=== PATIENT | female | born 2005 | race Caucasian/White ===

== ENCOUNTER → 2024-11-19 | Outpatient (CLI) | payer MEDICAID, SELFPAY | END | disposition home or self-care (01) | LOC: LABSPEC 13:14 | PROVIDERS: Referring Provider Obstetrics & Gynecology; Visit Provider Obstetrics & Gynecology | DX: O09.90 Supervision of high risk pregnancy, unspecified, unspecified trimester (principal); Z3A.00 Weeks of gestation of pregnancy not specified | CPT/HCPCS: 87077; 87086; 87088; 87186 ==

== ENCOUNTER → 2024-12-07 | Outpatient (CLI) | payer MEDICAID, SELFPAY ==
[2024-12-07 12:29] LABS: Hematocrit 30.5 % (37-47); Hemoglobin 10.3 g/dL (12.0-15.0); Immature Granulocytes Count 0.060 X10^3/uL (0.0-0.0); Mean Corp Hgb Conc 33.8 g/dL (32-36); Mean Corpuscular Volume 90.2 fL (81-99); Mean Platelet Vol. 10.4 fl (6.2-12.0); NRBC Flagged by Analyzer 0 % (0-5); Platelet Count 261 K/mm3 (150-450); RBC Distribution Width CV 12.7 % (11.6-14.6); RBC Distribution Width SD 41.1 fl (35.1-43.9); Red Blood Count 3.38 M/mm3 (4.2-5.4); White Blood Count 8.9 K/mm3 (4.4-11.0)
[2024-12-07 12:42] LABS: Creatinine, Urine (random) 85.20 mg/dL (28.00-217.00); Protein, Urine (Random) 14.4 mg/dL (0.0-12.0); Protein:Creat Ratio 169 mg/g CRE (0-200)
[2024-12-07 13:42] LABS: AST(SGOT) 17 U/L (<=31); Alanine Aminotransfer ALT/SGPT 10 U/L (<=34); Albumin, Serum 3.3 g/dL (3.5-5.0); Alkaline Phosphatase 200 U/L (35-104); Anion Gap 12 (5-15); BUN 9 mg/dL (4-19); BUN/Creat Ratio 15.3 RATIO (10-20); Calcium,Total 9.1 mg/dL (7.6-11.0); Carbon Dioxide 19.7 mmol/L (21.0-32.0); Chloride 106 mmol/L (98-108); Globulin 2.7 g/dL (2.2-4.2); Glucose 68 mg/dL (70-99); Potassium 4.1 mmol/L (3.3-5.1)
== END | disposition home or self-care (01) ==
PROVIDERS: Visit Provider Nurse Practitioner Women's Health
DX: O26.899 Other specified pregnancy related conditions, unspecified trimester (principal); R51.9 Headache, unspecified; Z3A.00 Weeks of gestation of pregnancy not specified
CPT/HCPCS: 36415; 80053; 82570; 84156; 85025

== ENCOUNTER 2024-12-16 20:00 | Inpatient (IN) | payer MEDICAID, SELFPAY ==
[2024-12-16] VITALS (38 sets, daily range): BP systolic 130–165; BP diastolic 73–97; PULSE 64–93; RESP 12–16; TEMP 35.8–37.6; O2SAT 97–99; BMI 27.9
[2024-12-16 17:24] LABS: Color, Urine Yellow (Yellow); Glucose, Dipstick Normal (Normal); Ketone-Dipstick Negative (Negative); Leukocyte Esterase-Dipstick 25 /ul (Negative); Nitrite-Dipstick Negative (Negative); Occult Blood-Urine Negative /ul (Negative); Protein-Dipstick 15 mg/dl (Negative); Specific Gravity, Urine 1.005 (1.002-1.030); Urine Bilirubin Dipstick Negative (Negative)
[2024-12-16 18:13] LABS: Hematocrit 32.2 % (37-47); Hemoglobin 11.1 g/dL (12.0-15.0); Mean Corp Hgb Conc 34.5 g/dL (32-36); Mean Corpuscular Volume 88.2 fL (81-99); Mean Platelet Vol. 10.0 fl (6.2-12.0); Platelet Count 328 K/mm3 (150-450); RBC Distribution Width CV 12.5 % (11.6-14.6); RBC Distribution Width SD 39.8 fl (35.1-43.9); Red Blood Count 3.65 M/mm3 (4.2-5.4); White Blood Count 9.8 K/mm3 (4.4-11.0)
[2024-12-16 18:25] LABS: Creatinine, Urine (random) 28.90 mg/dL (28.00-217.00); Protein, Urine (Random) 14.1 mg/dL (0.0-12.0); Protein:Creat Ratio 488 mg/g CRE (0-200)
[2024-12-16] MEDS: Lactated Ringers 1,000 ML 999 ML IV ×2 (18:30→19:40)
[2024-12-16 18:34] LABS: AST(SGOT) 26 U/L (<=31); Alanine Aminotransfer ALT/SGPT 12 U/L (<=34); Estimated Creatinine Clearance 179.93 ml/min (50-250); Uric Acid 5.0 mg/dL (2.6-6.0)
[2024-12-16] MEDS: Betamethasone/Betamethasone 30 MG/5 ML Vial 12 MG IM (18:51)
--- OUTSIDE RECORDS SUMMARY | 2024-12-16 20:07 | XMS RPT_ITS | CCD ---
Author Organization [facility] CliniSyut Care Team Providers Care Mill Operator Name Role Phone Unavailable Unavailable Unavailable MILTON LEOS Unavailable Unavail able MILTON LEOS Unavailable Unavail able UNKNOWN, PROVIDER Unavailable Unavailable MEME GIMENEZ Unavailable Unavailable Milton Leos Unavailable Milton Leos Primary Care Provider Milton Leos Primary Care Provider Unavailable Primary Care Provider Unavailabl e Milton Leos Primary Care Provider Milton Leos Primary Care Provider Shelley Leosah Primary Care Provider [phone] MARY MIGUEL Admitting Unavailab MARY Marley Referring Unavailab le MILTON LEOSBETH Primary Care Unavail able Milton Leos MDbeth [facility] Provide r Dafne HYMAN, Milton Primary Care Provider Milton Leos MD Primary [facility] Provide r Milton Leos MD Primary [facility] Provide r Meme Owen Primary Care Provider Meme Gimenez CNP Primary Care Provider [phone] EUSEBIO SOLORIO Attending Unavailable MEME GIMENEZ Primary Care Unavailable BARNEY JACQUES Attending Unavailable MEME GIMENEZ Primary Care Unavailable NATALIE SMALLS Attending Unavail able MEME GIMENEZ Referring Unavailable MEME GIMENEZ Admitting Unavailable MILTON LEOSBETH Primary Care Unavail able KHEMECANDACE RAGLAND Attending Mable vailable ETZEL MEME CASTRO Primary Care Unavailable DALLIN MORE Attending Unavailable ETZEL, MEME CASTRO Primary Care Unavailable ETZEL, MEME CASTRO Referring Unavailable ETZEL, MEME CASTRO Admitting Unavailable YINA AHN Attending Unavailab le ETZEL, MEME CASTRO Primary Care Unavailable ETZEL, MEME CASTRO Referring Unavailable ETZEL, MEME CASTRO Admitting Unavailable DALLIN MORE Attending Unavailable ETZEL, MEME CASTRO Primary Care Unavailable NATALIE SMALLS Attending Unavail able ETZEL, MEME CASTRO Primary Care Unavailable Etzel PHARMACOLOGY TEACHER[employer], Meme Primary Care Provider [phone] ETTESS, MEME REID Referring Unavailable ETZEL, MEME CASTRO Attending Unavailable DAFNEMILTON SALAZAR Primary Care Unavail able ETZEL, MEME CASTRO Attending Unavailable ETZEL, MEME CASTRO Primary Care Unavailable ETZEL, MEME CASTRO Primary Care Unavailable NANCY EDWARDS Attending Unavail able REALNANCY Admitting Unavail able ETZEL, MEME CASTRO Primary Care Unavailable INÉSEMEELLYNCANDACE Attending Mable vailable KHEMEES, CANDACE JOHNSON Admitting Mable vailable ETZEL, MEME CASTRO Attending Unavailable ETZEL, MEME CASTRO Primary Care Unavailable Etzel PHARMACOLOGY TEACH[employer], Meme Primary Care Provider [phone] SULEMA LAZAR L. Referring Unavailable LAZAR, SULEMA L. Admitting Unavailable ETZEL, MEME CASTRO Primary Care Unavailable NATALI HOPE Attending Unavailable LAZAR, SULEMA L. Referring Unavailable LAZAR, SULEMA L. Admitting Unavailable ETZEL, MEME CASTRO Primary Care Unavailable PATTI SONG Attending Unavailable ETZEL, MEME CASTRO Primary Care Unavailable YINA AHN Attending Unavailab YINA Miller Referring Unavailab le LAZAR, SULEMA L. Referring Unavailable LAZAR, SULEMA L. Admitting Unavailable ETZEL, MEME CASTRO Primary Care Unavailable PATTI SONG Attending Unavailable LAZAR, SULEMA L. Referring Unavailable LAZAR, SULEMA L. Admitting Unavailable ETZEL, MEME CASTRO Primary Care Unavailable SARAH MCKEON Attending Unavailable LAZAR, SULEMA L. Referring Unavailable LAZAR, SULEMA L. Admitting Unavailable ETZEL, MEME CASTRO Primary Care Unavailable PATTI SONG Attending Unavailable LAZAR, SULEMA L. Referring Unavailable LAZAR, SULEMA L. Admitting Unavailable JAYYNATALI Attending Unavailable ETZEL, [facility] Primary Care Unavailable LAZAR, SULEMA L. Referring Unavailable LAZAR, SULEMA L. Admitting Unavailable ROJO, KIMO Attending Unavailable ETZEL, [facility] Primary Care Unavailable ETZEL, [facility] Primary Care Unavailable ANABELLE, YINA BUSBY Attending Unavailab le ANABELLE, YINA BAHVYA Referring Unavailab le LAZAR, SULEMA L. Referring Unavailable LAZAR, SULEMA L. Admitting Unavailable ETZEL, [facility] Primary Care Unavailable JAYYNATALI Attending Unavailable LAZAR, SULEMA L. Referring Unavailable LAZAR, SULEMA L. Admitting Unavailable ETZEL, [facility] Primary Care Unavailable JAYYNATALI Attending Unavailable LAZAR, SULEMA L. Referring Unavailable LAZAR, SULEMA L. Admitting Unavailable ROJO, KIMO Attending Unavailable ETZEL, [facility] Primary Care Unavailable LAZAR, SULEMA L. Referring Unavailable LAZAR, SULEMA L. Admitting Unavailable JAYY, NATALI Attending Unavailable ETZEL, [facility] Primary Care Unavailable LAZAR, SULEMA L. Referring Unavailable LAZAR, SULEMA L. Admitting Unavailable STURTSGERMAINE Attending Unavailable ETZEL, [facility] Primary Care Unavailable LAZAR, SULEMA L. Referring Unavailable LAZAR, SULEMA L. Admitting Unavailable PATTI SONG Attending Unavailable ETZEL, [facility] Primary Care Unavailable LAZAR, SULEMA L. Referring Unavailable LAZAR, SULEMA L. Admitting Unavailable JAYY, NATALI Attending Unavailable ETZEL, [facility] Primary Care Unavailable LAZAR, SULEMA L. Referring Unavailable LAZAR, SULEMA L. Admitting Unavailable ROJO, KIMO Attending Unavailable ETZEL, [facility] Primary Care Unavailable LAZAR, SULEMA L. Referring Unavailable LAZAR, SULEMA L. Admitting Unavailable JAYYNATALI Attending Unavailable ETZEL, [facility] Primary Care Unavailable LAZAR, SULEMA L. Referring Unavailable LAZAR, SULEMA L. Admitting Unavailable ETZEL, [facility] Primary Care Unavailable PATTI SONG Attending Unavailable LAZAR, SULEMA L. Referring Unavailable LAZAR, SULEMA L. Admitting Unavailable JAYYNATALI Attending Unavailable ETZEL, [facility] Primary Care Unavailable ETZEL, [facility] Primary Care Unavailable ETZEL, [facility] Admitting Unavailable LAZAR, SULEMA L. Referring Unavailable LAZAR, SULEMA L. Admitting Unavailable JAYYNATALI Attending Unavailable ETZEL, [facility] Primary Care Unavailable LAZAR, SULEMA L. Referring Unavailable LAZAR, SULEMA L. Admitting Unavailable STURTS, GERMAINE Attending Unavailable ETZEL, [facility] Primary Care Unavailable LAZAR, SULEMA L. Referring Unavailable LAZAR, SULEMA L. Admitting Unavailable GERMAINE ALMONTE Attending Unavailable ETZEL, [facility] Primary Care Unavailable PEDRO SIDDIQUI JR. Attending Unav ailable ETZEL, [facility] Primary Care Unavailable HAL VELASQUEZ Attending Unavailable ETZEL, [facility] Primary Care Unavailable LAZAR, SULEMA L. Referring Unavailable LAZAR, SULEMA L. Admitting Unavailable NATALI HOPE Attending Unavailable ETZEL, [facility] Primary Care Unavailable LAZAR, SULEMA L. Referring Unavailable LAZAR, SULEMA L. Admitting Unavailable NATALI HOPE Attending Unavailable ETZEL, [facility] Primary Care Unavailable LAZAR, SULEMA L. Referring Unavailable LAZAR, SULEMA L. Admitting Unavailable ETZEL, [facility] Primary Care Unavailable PATTI SONG Attending Unavailable Etzel PHARMACOLOGY TEACHER[employer], Surveyor Primary Care Provider FORREST THAPA Referring Unavailable FORREST THAPA [facility]ending [facility] Primary Care Unavailable Etzel PHARMACOLOGY TEACHER[employer], Surveyor Primary Care Provider SICKLE, JANA Referring Unavailable SICKLE, JANA Attending [facility]available [facility] Primary Care Unavailable Etzel PHARMACOLOGY TEACHER[employer], Surveyor Primary Care Provider [phone] LOYD PRADO Attending Unavailable SICKLE, JANA Referring Unavailable ETZEL, MEME Primary Care Unavailable SICKLE, JANA Referring Unavailable ETZEL, MEME Primary Care Unavailable LOYD PRADO Attending Unavailable SICKLE, JANA Referring Unavailable ETZEL, MEME Primary Care Unavailable LOYD PRADO Attending Unavailable LOYD PRADO Referring Unavailable ETZEL, MEME Primary Care Unavailable PRADO, LOYD Referring Unavailable ETZEL, [place] Primary Care Unavailable PRADOLOYD FERREIRA Attending Unavailable LOYD PRADO Attending Unavailable SICKLE, JANA Referring Unavailable ETZEL, [place] Primary Care Unavailable Unavailable Primary Care Provider Unavailabl e ETTESS, [place] Primary Care Unavailable MEME PRASAD Attending Unavailable LINDSEY RITCHIE Attending Unavailable SELF, SELF Referring Unavailable ETZEL, MEME Primary Care Unavailable SICKLE, JANA Referring Unavailable SICKLE, JANA Attending Unavailable ETZEL, MEME Primary Care Unavailable SELF, SELF Referring Unavailable ETZEL, [place] Primary Care Unavailable KAI WYLIE Attending Unavailable ETZEL, [place] Primary Care Unavailable SUBIT, ANNE-MARIE Referring Unavailable SUBIT, ANNE-MARIE Attending Unavailable SUBIT, ANNE-MARIE Admitting Unavailable MEME GIMENEZ Primary Care Unavailable Dr. Maribell Yang DO Attending Physician Dr. Maribell Yang DO Referring Provider MARIBELL HARRISON Referring Unavailab FABIOLA Frazier Attending Unavailable MUSHTAQ BRAVO Primary Care Unavailable Jana Vieyra Attending Physician Unavailable Marcy PRIESTCLenora Attending Physician [phone] Lenora Vidal NP Attending Unavailable Maribell Yang Attending UnavailJana Mayfield Attending Unavailable Jana Vieyra Attending Unavailable Jana Vieyra Attending Unavailable Maribell Yang Attending UnavailMaribell Bettencourt Referring UnavailLenora Trimble NP Attending Unavailable MEME GIMENEZ Primary Care Unavailable MEME CLINE Attending Unavailable Allergies Allergy Classification Reported Allergen(s) Allergy Type Date of Onset Reaction(s) Facility coconut allergenic extract (1 source) coconut allergenic extract Drug Allergy [address] [facility] Coconut Oil (2 sources) Coconut Oil Drug Allergy 7 [facility] Latex (3 sources) Latex Substance Allergy 7 Dermatitis, Atopic Dermatitis [facility] (20 sources) coconut allergenic extract; Translations: [COCONUT OIL] Drug Allergy 7 [facility] Work Phone: (20 sources) Latex; Translations: [LATEX] Propensity to adverse reactions to drug 7 Atopic Dermatitis, Dermatitis [facility] Work Phone: (20 sources) *TAPE Propensity to adverse reactions 7 [facility] Work Phone: (20 sources) Coconut Oil Drug Allergy 7 [facility] (20 sources) Silk adhesive tape; Translations: [Unknown] Propensity to adverse reactions to substance 3 [facility] (20 sources) prasterone; Translations: [PRASTERONE (DHEA)] Drug Allergy 1 [facility] (9 sources) calcium phosphate / prasterone Drug Allergy [address] [facility] (18 sources) Wound Dressing Adhesive Propensity to adverse reactions to drug 3 [facility] (16 sources) Latex Propensity to adverse reactions to drug 7 Atopic Dermatitis [facility] (16 sources) Prasterone Propensity to adverse reactions to drug 1 [facility] (3 sources) Coconut extract Drug Allergy 5 [facility] (3 sources) natural latex rubber Allergy to substance 5 [facility] Comment on above: SWELLING (1 source) Coconut extract Drug Allergy 5 [facility] (1 source) natural latex rubber Drug allergy (disorder) 5 [facility] Medications Current Medications Medication Drug Class(es) Dates Sig (Normalized) Sig (Original) acetaminophen 325 mg / HYDROcodone bitartrate 5 mg oral tablet (6 sources) Opioid Agonist Start: 07-18-2022 take 1 tablet by mouth every four hours as needed for pain HYDROcodone-acetaminop hen (NORCO) 5-325 mg per tablet Indications: Ureterolithiasis Take 1 (one) tablet by mouth every 4 (four) hours as needed for pain . 8 tablet 0 07/18/2022 Active Start: 11-03-2019 End: 11-06-2019 take 1 tablet by mouth every six hours as needed for pain HYDROcodone-acetaminophen (NORCO) 5-325 mg per tablet Indications: Instability of right patellofemoral joint Take 1 (one) tablet by mouth every 6 (six) hours as needed for pain 3 day . 12 tablet 0 11/03/2019 11/06/2019 Active Start: 10-14-2019 End: 10-17-2019 take 1 tablet by mouth every four hours as needed HYDROcodone-acetaminophen (NORCO) 5-325 mg per tablet Indications: S/P arthroscopic surgery of right knee Take 1 (one) tablet by mouth every 4 (four) hours as needed . 18 tablet 0 10/14/2019 10/17/2019 Active Start: 02-16-2018 End: 02-16-2018 hydroCODone-acetaminophen (N ORCO) 5-325 MG per tablet 1 tablet Start: 02-16-2018 End: 02-16-2018 take 1 tablet by mouth every eight hours as needed hydroCODone-acetaminophen 5-325 MG Tab tablet Indications: Yola-Danlos syndrome , Neck pain Take 1 tablet by mouth every 8 hours as needed for up to 7 days. 20 tablet 0 02/16/2018 02/16/2018 Discontinued amoxicillin 875 mg / clavulanate 125 mg oral tablet (2 sources) Penicillin-class Antibacterial Start: 07-19-2022 End: 07-24-2022 take 1 tablet by mouth twice daily amoxicillin-clavulanate (AUGMENTIN) 875-125 mg per tablet Take 1 (one) tablet by mouth 2 (two) times a day for 10 doses Start: 07/19/22. 10 tablet 0 07/19/2022 07/24/2022 Active Start: 04-06-2019 End: 04-16-2019 take 1 tablet by mouth every twelve hours amoxicillin-clavulanate 875-125 MG Tab tablet Indications: Chronic daily headache Take 1 tablet by mouth every 12 hours for 10 days. 20 tablet 0 04/06/2019 04/16/2019 Active ARIPiprazole 2 mg oral tablet (5 sources) Atypical Antipsychotic Start: 10-26-2020 take 1 tablet by mouth once daily ARIPiprazole (ABILIFY) 2 MG tablet Take 2 mg by mouth daily . 0 10/26/2020 Active benzoyl peroxide 0.05 mg/mg / clindamycin 0.01 mg/mg topical gel (9 sources) Lincosamide Antibacterial Start: 03-10-2020 clindamycin-benzoy l peroxide 1-5 % Gel Start: 03-10-2020 End: 05-17-2020 clindamycin-benzoyl peroxide 1-5 % GlwP APPLY TO THE AFFECTED AREA(S) TWICE DAILY DIRECTED 0 03/10/2020 05/17/2020 Discontinued (Error) busPIRone hydrochloride 5 mg oral tablet (5 sources) Start: 11-09-2020 take 1 tablet by mouth once daily in the morning busPIRone (BUSPAR) 5 MG tablet Take 5 mg by mouth every morning . 0 11/09/2020 Active cephalexin 500 mg oral capsule (2 sources) Cephalosporin Antibacterial Start: 03-15-2020 End: 03-22-2020 take 1 capsule by mouth every twelve hours cephALEXin 500 MG capsule Take 1 capsule by mouth every 12 hours for 7 days. 14 capsule 0 03/15/2020 03/22/2020 Active Start: 02-03-2020 End: 02-10-2020 take 1 capsule by mouth every twelve hours cephALEXin 500 MG capsule Take 1 capsule by mouth every 12 hours for 7 days. 14 capsule 0 02/03/2020 02/10/2020 Active ciprofloxacin 500 mg oral tablet (1 source) Quinolone Antimicrobial Start: 08-08-2020 End: 08-13-2020 take 1 tablet by mouth twice daily ciprofloxacin (Cipro) 500 MG tablet Take 1 tablet by mouth 2 times daily for 5 days. 10 tablet 0 08/08/2020 08/13/2020 Active copper 313 mg drug implant (20 sources) Copper-containing Intrauterine Device Paragard Intrauterine Copper 1 Device by Intrauterine route once. 0 Active End: 05-17-2020 Copper IUD (ParaGard T 380A) 1 Device by Intrauterine route once . 0 05/17/2020 Discontinued (Error) Copper IUD (Para Alexandru T 380A) 1 Device by Intrauterine route once . 0 Active dicyclomine hydrochloride 20 mg oral tablet (13 sources) Anticholinergic Start: 07-23-2023 take 1 tablet by mouth every six hours for muscle spasms Dicyclomine 20 MG tablet Take 1 tablet by mouth every 6 hours. For abdominal spasms 12 tablet 07/23/2023 Active Start: 07-23-2023 End: 07-23-2023 inject 1 dose by intramuscular injection once 20 mg, Intramuscular, ONCE, 1 dose, On Sat07/23/23 at 1345 [employer]ACARD (7 sources) Start: 08-06-2022 End: 11-09-2022 DISABILITY PLACARD Indicatio ns: Patellofemoral instability, right End Date: 11/09/2022 1 Each 0 08/06/2022 11/09/2022 Active docusate sodium 50 mg / sennosides, jail 8.6 mg oral tablet (10 sources) Start: 11-12-2022 senna-docusate (sennosides-docusate sodium) 8.6-50 mg Indications: Yola-Danlos disease , Constipation, unspecified constipation type Take 4 tabs daily . 120 tablet 5 11/12/2022 Active Start: 10-03-2022 senna-docusate (sennosides-docusate sodium) 8.6-50 mg Indications: Yola-Danlos disease , Constipation, unspecified constipation type Take 4 tabs daily . 120 tablet 5 10/03/2022 Active Start: 09-26-2022 End: 09-26-2023 take 1 tablet by mouth once daily senna-docusate (sennosides-docusate sodium) 8.6-50 mg Take 1 (one) tablet by mouth daily . 30 tablet 11 09/26/2022 09/26/2023 Active doxycycline hyclate 100 mg oral capsule (12 sources) Tetracycline-class Drug Start: 09-15-2023 End: 09-15-2023 200 mg, Oral, ONCE, 1 dose, On 09/15/23 at 1945, Avoid antacid and iron administration for 1 hour before and 2 hours after dose Start: 03-10-2020 take 1 capsule by [facility] once daily doxycycline hyclate (VIBRAMYCIN) 100 MG capsule Take 100 mg by mouth daily . 0 03/10/2020 Active drospirenone 3 mg / ethinyl estradiol 0.03 mg oral tablet (20 sources) Progestin, Estrogen Start: 09-19-2018 take 1 tablet by mouth once daily at dinner drospirenone-ethinyl estradiol 3-0.03 MG Tab Take 1 tablet by mouth Daily (with dinner). 0 09/19/2018 Active Start: 09-19-2018 End: 10-14-2019 take 1 tablet by mouth once daily, then take 3 tablets by mouth once drospirenone-ethinyl estradiol (TRACEY) 3-0.03 mg per tablet Take 1 tablet by mouth daily . 11 09/19/2018 10/14/2019 Discontinued Start: 09-19-2018 take 1 tablet by [facility] once daily, then take 3 tablets by mouth once drospirenone-ethinyl estradiol (TRACEY) 3-0.03 mg per tablet Take 1 tablet by mouth daily . 11 09/19/2018 Active DULoxetine 20 mg delayed release oral capsule (14 sources) Serotonin and Norepinephrine Reuptake Inhibitor Start: 06-08-2019 take 1 capsule by mouth once daily DULoxetine [address] Particles capsule DR Indications: Fibromyalgia Take 1 capsule by mouth daily. 30 capsule 0 06/08/2019 Active Start: 04-23-2019 take 1 capsule by [facility] twice daily DULoxetine [address] Particles capsule DR Indications: Fibromyalgia , Anxiety Take 1 capsule by mouth 2 times daily. 30 capsule 1 04/23/2019 Active Start: 11-10-2018 take 1 capsule by [facility] once daily duloxetine [address] Particles capsule DR Take 30 mg by mouth daily. 2 11/10/2018 Active Start: 11-10-2018 take 1 capsule by [facility] twice daily duloxetine [address] Particles capsule DR Take 30 mg by mouth 2 times daily. 2 11/10/2018 Active escitalopram 20 mg oral tablet (6 sources) Serotonin Reuptake Inhibitor Start: 06-15-2019 take 1 tablet by mouth once daily escitalopram 20 MG tablet Indications: Moderate episode of recurrent major depressive disorder Take 1 tablet by mouth daily. 30 tablet 0 06/15/2019 Active Start: 06-01-2019 take 0.[address] [facility] at bedtime, then take 1 tablet by mouth once daily escitalopram (Lexapro) 10 MG tablet Indications: Moderate episode of recurrent major depressive disorder Take 1/2 tab PO at bedtime for 2 weeks, then increase to one full tab daily 21 tablet 0 06/01/2019 Active famotidine 40 mg oral tablet (4 sources) Histamine-2 Receptor Antagonist Start: 11-12-2024 take 1 tablet by mouth twice daily Start: 10-27-2024 take 1 tablet by [facility] twice daily famotidine 40 MG tablet Take 1 tablet by mouth 2 times daily. 60 tablet 4 10/27/2024 Active fluticasone propionate 0.05 mg/actuat metered dose nasal spray (2 sources) Corticosteroid Start: 11-03-2022 End: 11-03-2023 take 2 spray(s) nasal route once daily fluticasone propionate (FLONASE) 50 mcg/actuation nasal spray Instill 2 (two) sprays into each nostril daily . 16 g 0 11/03/2022 11/03/2023 Active gabapentin 100 mg oral capsule (7 sources) Anti-epileptic Agent Start: 08-06-2022 End: 08-16-2022 take 1 capsule by mouth every eight hours as needed for pain Gabapentin 100 MG capsule Indications: Patellofemoral instability, right Take 1 by mouth every 8 hours as needed for pain. 30 capsule 0 08/06/2022 Active Start: 08-06-2022 End: 08-06-2022 Gabapentin (NEURONTIN) capsu le 300 mg humidifiers (Cool Mist Humidifier) Misc (2 sources) Start: 11-03-2022 humidifiers (C ool Mist Humidifier) Misc Use as needed . 1 each 0 11/03/2022 Active ibuprofen 600 mg oral tablet (14 sources) Nonsteroidal Anti-inflammatory Drug Start: 11-28-2023 End: 11-28-2023 take 1 dose by mouth once at mealtime 600 mg, Oral, ONCE, 1 dose, On Ber[place] 11/28/23 at 2245, Give with food Start: 07-19-2023 take 1 tablet by radha th every six hours as needed Ibuprofen 600 MG tablet Take 1 tablet by mouth every 6 hours as needed for Mild Pain or Moderate Pain. 60 tablet 07/19/2023 Active lisdexamfetamine dimesylate 70 mg oral capsule (20 sources) Central Nervous System Stimulant Start: 02-21-2022 Vyvanse 70 mg capsule Take 50 mg by mouth every morning . 0 02/21/2022 Active Start: 02-21-2022 take 1 capsule by mo uth once daily in the morning Vyvanse 70 mg capsule Take 1 (one) capsule (70 mg total) by mouth every morning . 0 02/21/2022 Active Start: 10-25-2021 End: 07-19-2023 take 1 capsule by mouth once daily in the morning Vyvanse 50 MG capsule Take 1 capsule by mouth daily every morning. 10/25/2021 07/19/2023 Discontinued (Stop Taking at Discharge) Start: 08-16-2021 End: 07-19-2023 take 1 capsule by mouth once daily at dinner Lisdexamfetamine Dimesylate 60 MG capsule Take 60 mg by mouth Daily (with dinner). 08/16/2021 07/19/2023 Discontinued (Stop Taking at Discharge) take 1 capsule by mo uth once daily in the morning lisdexamfetamine (Vyvanse) 20 MG capsule Take by mouth daily every morning. Active take 1 capsule by [facility] once daily in the morning lisdexamfetamine (VYVANSE) 30 MG capsule Take 30 mg by mouth every morning Daily . 0 Active loperamide hydrochloride 2 mg oral capsule (1 source) Opioid Agonist Start: 05-20-2019 End: 05-30-2019 take 1 capsule by mouth four times daily as needed for diarrhea loperamide (Imodium A-D) 2 mg capsule Indications: Viral gastroenteritis Take 1 (one) capsule (2 mg total) by mouth 4 (four) times a day as needed for diarrhea . 30 capsule 0 05/20/2019 05/30/2019 Active loratadine 10 mg oral tablet (2 sources) Start: 11-03-2022 End: 12-03-2022 take 1 tablet by mouth once daily loratadine (CLARITIN) 10 mg tablet Take 1 (one) tablet (10 mg total) by mouth daily . 30 tablet 2 11/12/2022 Active magic mouthwash susp equal parts viscous lidocaine 2%, diphenhydramine 12.5mg/5mL, maalox [id number]/5mL (1 source) Start: 09-22-2018 End: 10-02-2018 magic mouthwash susp equal parts viscous lidocaine 2%, diphenhydramine 12.5mg/5mL, maalox [id number]/5mL Swish and spit 10 mL every 4 (four) hours as needed . 240 mL 0 09/22/2018 10/02/2018 Active omeprazole 20 mg delayed release oral capsule (4 sources) Proton Pump Inhibitor Start: 12-17-2022 take 2 capsules by mouth once daily omeprazole (PRILOSEC) 20 MG capsule Take 2 (two) capsules (40 mg total) by mouth daily . 60 capsule 5 12/17/2022 Active Start: 12-14-2022 End: 02-12-2023 take 1 tablet by mouth once daily omeprazole (PRILOSEC OTC) 20 MG tablet Take 1 (one) tablet (20 mg total) by mouth daily . 30 tablet 1 12/14/2022 02/12/2023 Active oxyCODONE hydrochloride 5 mg oral tablet (8 sources) Opioid Agonist Start: 08-14-2022 oxyCODONE 5 MG tablet Indications: S/P knee surgery , Patellar instability of right knee Take 1-2 by mouth every 8 hours as needed for pain. Patient requires >30 MED per day and/or >7 days of medication due to orthopedic surgery. 30 tablet 0 08/14/2022 Active Start: 08-06-2022 End: 08-11-2022 oxyCODONE 5 MG tablet Indica tions: Patellofemoral instability, right Take 1-2 by mouth every 6 hours as needed for pain. Patient requires >30 MED per day and/or >7 days of medication due to orthopedic surgery. 40 tablet 0 08/06/2022 08/11/2022 Active Start: 08-06-2022 oxyCODONE (GERARD ICODONE) tablet 5 mg Paragard Intrauterine Copper (4 sources) Paragard Intraut erine Copper 1 Device by Intrauterine route once. 0 Active phenazopyridine hydrochloride 200 mg delayed release oral tablet (6 sources) Start: 02-03-20 End: 08-09-19 21 take 1 tablet by mouth twice daily phenazopyridine 200 MG tablet Take 1 tablet by mouth 2 times daily. 6 tablet 0 08/08/2020 Active Pnv No.[id number] sh 400 mcg-35 mg- 25 mg-5 mg tablet,chewable (3 sources) Start: 11-13-19 25 polyethylene glycol 3350 12893 mg powder for oral solution (6 sources) Osmotic Laxative Start: 06-01-19 20 take 34 g by mouth once daily polyethylene glycol (MiraLax) Powder powder Indications: Constipation, unspecified constipation type Take 34 g by mouth daily. 0 06/01/2019 Active Prenat w/o [id number] ( vitamin) tablet (7 sources) take 1 tablet by mouth once daily Prenat w/o [id number] ( vitamin) tablet Take 1 tablet by mouth daily. Active sennosides, jail 8.6 mg oral tablet (20 sources) Start: 04-10-19 23 senna (SENOKOT) 8.6 mg tablet Take 4 times a day for chronic constipation . 120 tablet 2 04/10/2022 Active Start: 08-19-2020 End: 07-19-2023 take 4 tablets by mouth once daily at dinner sennosides 8.6 MG tablet Take 4 tablets by mouth Daily (with dinner). 12/13/2021 07/19/2023 Discontinued (Stop Taking at Discharge) sertraline 25 mg oral tablet (1 source) Serotonin Reuptake Inhibitor Start: 09-19-2020 take 0.5 tablet by mouth once daily in the morning, then take 1 tablet by mouth once daily in the morning sertraline (ZOLOFT) 25 MG tablet TAKE 1/2 (ONE-HALF) OF A TABLET BY MOUTH EVERY MORNING FOR 1 WEEK, then 1 TABLET EVERY MORNING THEREAFTER 0 09/19/2020 Active sulfacetamide sodium 90 mg/ml / sulfur 45 mg/ml medicated liquid soap (11 sources) Sulfonamide Antibacterial Start: 03-10-2020 sulfacetamide sodium-sulfur 9-4.5 % Clsr Start: 03-10-2020 Sulfacetamide Sodium-Sulfur 9-4.5 % Liquid sulfamethoxazole 800 mg / trimethoprim 160 mg oral tablet (1 source) Dihydrofolate Reductase Inhibitor Antibacterial, Sulfonamide Antimicrobial Start: 06-08-2019 End: 06-15-2019 take 1 tablet by mouth twice daily sulfamethoxazole-trimethoprim 800-160 MG per tablet Indications: Dysuria Take 1 tablet by mouth 2 times daily for 7 days. 14 tablet 0 06/08/2019 06/15/2019 Active tamsulosin hydrochloride 0.4 mg oral capsule (15 sources) alpha-Adrenergic Caleb Start: 07-24-2022 End: 07-24-2023 take 1 capsule by mouth once daily tamsulosin (FLOMAX) 0.4 mg capsule Take 1 (one) capsule (0.4 mg total) by mouth daily . 15 capsule 0 07/24/2022 07/24/2023 Active Completed/Discontinued Medications Medication Drug Class(es) Dates Sig (Normalized) Sig (Original) acetaminophen 325 mg oral tablet (8 sources) Start: 08-06-2022 End: 08-06-2022 Acetaminophen (TYLENOL) tablet 975 mg Start: 01-04-2022 End: 01-04-2022 acetaminophen (TYLENOL) tabl et 1,000 mg Start: 10-18-2017 End: 09-22-2018 acetaminophen (TYLENOL) 325 MG tablet Take 650 mg by mouth . 0 10/18/2017 09/22/2018 Discontinued (Error) acetaminophen 325 mg / oxyCODONE hydrochloride 5 mg oral tablet (7 sources) Opioid Agonist Start: 07-19-2023 End: 05-26-2024 take 1 tablet by mouth every six hours as needed for pain oxyCODONE-acetaminophen 5-325 MG per tablet Indications: Post-op pain Take 1 tablet by mouth every 6 hours as needed for Severe Pain for up to 3 days. 12 tablet 07/19/2023 05/26/2024 Discontinued Start: 07-19-2023 End: 07-19-2023 1 tablet, Oral, ONCE, 1 dose , On Sat07/19/23 at 1400 ALPRAZolam 0.25 mg oral tablet (1 source) Benzodiazepine Start: 05-20-2019 End: 05-20-2019 ALPRAZolam (XANAX) tablet 0.25 mg aspirin 325 mg oral tablet (15 sources) Platelet Aggregation Inhibitor, Nonsteroidal Anti-inflammatory Drug Start: 08-06-2022 End: 07-19-2023 take 1 tablet by mouth once daily Aspirin 325 MG tablet Indications: Patellofemoral instability, right Take 1 by mouth daily. 42 tablet 08/06/2022 07/19/2023 Discontinued (Stop Taking at Discharge) Start: 10-14-2019 End: 11-13-2019 take 1 tablet by mouth twice daily aspirin 81 MG EC tablet Take 1 (one) tablet (81 mg total) by mouth 2 (two) times a day . 60 tablet 0 10/14/2019 11/13/2019 Active calcium chloride 0.0014 meq/ml / potassium chloride 0.004 meq/ml / sodium chloride 0.103 meq/ml / sodium lactate 0.028 meq/ml injectable solution (4 sources) Start: 07-19-2023 End: 07-19-2023 Intravenous, at 125 mL/hr, CONTINUOUS, Starting on Sat07/19/23 at 0900, Until Sat07/19/23 at 1646, Pre-op/Pre-Proc Start: 08-06-2022 End: 08-06-2022 Lactated ringers IV solution Start: 10-14-2019 End: 10-14-2019 take 100 mL intravenous route every hour 100 mL/hr, Intravenous, Continuous, Starting Sat10/14/19 at 1400, PACU (only) Start: 10-14-2019 End: 10-14-2019 lactated Ringers infusion ceFAZolin 1000 mg injection (1 source) Cephalosporin Antibacterial Start: 10-14-2019 End: 10-14-2019 ceFAZolin (ANCEF) IVPB 1 g (premix) cyclobenzaprine hydrochloride 10 mg oral tablet (13 sources) Muscle Relaxant Start: 02-16-2018 End: 11-13-2018 take 1 tablet by mouth three times daily as needed for muscle spasms cyclobenzaprine 10 MG Tab tablet Take 1 tablet by mouth 3 times daily as needed for Muscle spasms. 30 tablet 0 02/16/2018 11/13/2018 Discontinued (Therapy completed) 2 ml diazePAM 5 mg/ml prefilled syringe (1 source) Benzodiazepine Start: 07-23-2023 End: 07-23-2023 2.5 mg, Intravenous, ONCE, 1 dose, On Sat07/23/23 at 1415, Do not dilute prior to administration. Flush the line with saline afterwards. Extravasation Risk diphenhydrAMINE hydrochloride 25 mg oral tablet (2 sources) Histamine-1 Receptor Antagonist End: 02-16-2018 take 1 tablet by mouth every six hours as needed diphenhydrAMINE 25 MG Tab tablet Take 25 mg by mouth every 6 hours as needed. 02/16/2018 Discontinued docusate sodium 100 mg oral capsule (20 sources) Start: 07-26-2022 End: 08-05-2022 take 1 capsule by mouth twice daily docusate sodium (COLACE) 100 MG capsule Take 1 (one) capsule (100 mg total) by mouth 2 (two) times a day for 10 days . 10 capsule 0 07/26/2022 08/05/2022 Start: 06-08-2019 take 1 capsule by [facility] three times daily as needed for constipation docusate 100 MG capsule Indications: Drug-induced constipation with proper administration Take 1 capsule by mouth 3 times daily as needed for Constipation 1st Line. 90 capsule 0 06/08/2019 Active Start: 06-01-2019 take 1 capsule by mo ut twice daily docusate (Stool Softener) 100 MG capsule Indications: Constipation, unspecified constipation type Take 1 capsule by mouth 2 times daily. 0 06/01/2019 Active Start: 12-11-2017 End: 11-13-2018 take 2 capsules by mouth twice daily docusate sodium 50 MG Cap Indications: Constipation, unspecified constipation type Take 2 capsules by mouth 2 times daily. 120 capsule 0 12/11/2017 11/13/2018 Discontinued (Therapy completed) Elastic Bandages & Supports (Knee Brace Adjustable Hinged) Misc (14 sources) Start: 08-06-2022 End: 05-26-2024 Elastic Bandages & Supports (Knee Brace Adjustable Hinged) [facility] [place] Indications: Patellofemoral instability, right -FIT AND APPLY HINGE KNEE BRACE 1 Each 08/06/2022 05/26/2024 Discontinued Start: 08-06-2022 Elastic Bandag es & Supports (Knee Brace Adjustable Hinged) [facility] Indications: Patellofemoral instability, right -FIT AND APPLY HINGE KNEE BRACE 1 Each 08/06/2022 Active Start: 08-06-2022 Elastic Bandag es & Supports (Knee Brace Adjustable Hinged) [facility] Indications: Patellofemoral instability, right -FIT AND APPLY HINGE KNEE BRACE 1 Each 0 08/06/2022 Active 2 ml fentaNYL 0.05 mg/ml injection (1 source) Opioid Agonist Start: 08-06-2022 End: 08-06-2022 fentaNYL (SUBLIMAZE) injection 25 mcg fentaNYL (SUBLIMAZE) injection 25 mcg (1 source) Start: 07-19-2023 End: 07-19-2023 fentaNYL (SUBLIMAZE) injection 25 mcg FLUoxetine 10 mg oral tablet (12 sources) Serotonin Reuptake Inhibitor Start: 06-04-2018 End: 10-14-2019 FLUoxetine (PROZAC) 10 MG tablet Take 10 mg by mouth . 0 06/04/2018 10/14/2019 Discontinued 1 ml haloperidol 5 mg/ml injection (1 source) Typical Antipsychotic Start: 08-06-2022 End: 08-06-2022 Haloperidol lactate (HALDOL) injection 0.5 mg 1 ml HYDROmorphone hydrochloride 1 mg/ml injection (1 source) Opioid Agonist Start: 10-14-2019 End: 10-14-2019 0.5 mg, Intravenous, Every 5 min PRN, Pain, Starting 10/14/19 at 1303, For 6 doses, PACU (only) [] Give if fentanyl not effective or not ordered. [] Do not give more than 3 mg total. HYDROmorphone (DILAUDID) 0.5 mg/mL injection 0.5 mg (1 source) Start: 12-14-2018 End: 12-14-2018 HYDROmorphone (DILAUDID) 0.5 mg/mL injection 0.5 mg iopamidol (ISOVUE-370) 76 % injection 75 mL (1 source) Start: 12-14-2018 End: 12-14-2018 iopamidol (ISOVUE-370) 76 % injection 75 mL 1 ml ketorolac tromethamine 30 mg/ml cartridge (2 sources) Nonsteroidal Anti-inflammatory Drug, Cyclooxygenase Inhibitor Start: 09-15-2023 End: 09-15-2023 inject 1 dose by intramuscular injection once 30 mg, Intramuscular, ONCE, 1 dose, On 09/15/23 at 1945 Start: 04-04-2023 End: 04-04-2023 Ketorolac (TORADOL) injectio n 15 mg 4 ml labetalol hydrochloride 5 mg/ml cartridge (1 source) beta-Adrenergic Caleb Start: 10-14-2019 End: 10-14-2019 5 mg, Intravenous, Every 5 min PRN, SBP greater than 180 or DBP greater than 120, Starting Sat10/14/19 at 1303, For 4 doses, PACU (only) [] Do not give more than 20 mg total. [] Hold for HR less than 50. lidocaine 1% buffered in sodium bicarbonate 1-8.4 % injection SOSY 1 mL (1 source) Start: 08-06-2022 End: 08-06-2022 lidocaine 1% buffered in sodium bicarbonate 1-8.4 % injection SOSY 1 mL Meperidine (1 source) Opioid Agonist Start: 10-14-2019 End: 10-14-2019 12.5 mg, Intravenous, Every 5 min PRN, shivering, Starting Sat10/14/19 at 1303, For 2 doses, PACU (only) Do not give more than 25 mg total. RESTRICTED to use in rigors OR pain management in patients with a documented opioid allergy. Please select this medication s indication. Rigors 2 ml metoclopramide 5 mg/ml injection (1 source) Dopamine-2 Receptor Antagonist Start: 05-19-2019 End: 05-20-2019 metoclopramide (REGLAN) injection 10 mg minocycline 50 mg oral tablet (17 sources) Tetracycline-class Drug Start: 12-14-2021 End: 07-19-2023 take 1 tablet by mouth twice daily Minocycline HCl 50 MG tablet Take 50 mg by mouth 2 times daily. 12/14/2021 07/19/2023 Discontinued (Stop Taking at Discharge) 1 ml morphine sulfate 2 mg/ml cartridge (1 source) Opioid Agonist Start: 05-20-2019 End: 05-20-2019 morphine injection 2 mg naloxone (NARCAN) injection 0.1 mg (1 source) Start: 10-14-2019 End: 10-14-2019 naloxone (NARCAN) injection 0.1 mg Norethindrone (18 sources) End: 11-13-2018 Norethindrone (SIENA PO) Take by mouth. 0 11/13/2018 Discontinued End: 09-22-2018 take 1 tablet by mouth once daily norethindrone (MICRONOR) 0.35 mg tablet Take 0.35 mg by mouth daily . 0 09/22/2018 Discontinued Norethindrone (H EATHER PO) Take by mouth. 0 Active Norethindrone (H EATHER PO) Take by mouth. Active ondansetron 4 mg disintegrating oral tablet (20 sources) Serotonin-3 Receptor Antagonist Start: 07-23-2023 End: 05-26-2024 take 1 tablet by mouth every four hours as needed Ondansetron 4 MG Tab Dispersible tablet Take 1 tablet by mouth every [address] on tongue 15 tablet 07/23/2023 05/26/2024 Discontinued Start: 08-06-2022 End: 08-06-2022 Ondansetron 4mg/2ml (ZOFRAN) injection 4 mg Start: 07-26-2022 take 1 tablet by radha th every eight hours as needed for nausea ondansetron (ZOFRAN) 8 MG tablet Take 1 (one) tablet (8 mg total) by mouth every 8 (eight) hours as needed for nausea . 10 tablet 0 07/26/2022 Active Start: 10-14-2019 End: 10-14-2019 take 4 mg intravenous route every twenty-four hours as needed 4 mg, Intravenous, Once as needed, nausea, vomiting, Starting 10/14/19 at 1303, For 1 dose, PACU (only) Administer first as needed for nausea/vomiting, or as directed by anesthesia Start: 05-20-2019 End: 05-20-2019 ondansetron (ZOFRAN-ODT) disintegrating tablet 4 mg Start: 12-15-2018 End: 12-22-2018 take 1 tablet by mouth every six hours as needed ondansetron (ZOFRAN) 4 MG tablet Take 1 (one) tablet (4 mg total) by mouth every 6 (six) hours as needed for nausea TAKE HOME PACK . 2 tablet 0 12/15/2018 Active Start: 06-16-2018 End: 06-16-2018 ondansetron (ZOFRAN) injecti on 4 mg Start: 06-16-2018 End: 06-23-2018 take 1 tablet by mouth every four hours as needed ondansetron (ZOFRAN) 4 MG tablet Take 1 (one) tablet (4 mg total) by mouth every 4 (four) hours as needed for nausea . 10 tablet 0 06/16/2018 Active Start: 06-16-2018 End: 09-22-2018 take 1 tablet by mouth every six hours as needed ondansetron (ZOFRAN ODT) 4 MG disintegrating tablet Dissolve 1 (one) tablet (4 mg total) on top of tongue every 6 (six) hours as needed for nausea (HOME PACK) . 2 tablet 0 06/16/2018 09/22/2018 Discontinued (Error) 2 ml orphenadrine citrate 30 mg/ml injection (1 source) Muscle Relaxant Start: 02-16-2018 End: 02-16-2018 orphenadrine (NORFLEX) injection 30 mg Start: 02-16-2018 End: 02-16-2018 orphenadrine (NORFLEX) injec tion 30 mg predniSONE 20 mg oral tablet (6 sources) Start: 02-07-2021 End: 01-04-2022 take 1 tablet by mouth twice daily predniSONE 20 MG tablet Indications: Sore throat Take 1 tablet by mouth 2 times daily. 10 tablet 0 02/07/2021 01/04/2022 Discontinued (Therapy completed) Start: 04-06-2019 take 1 tablet by radha th twice daily predniSONE 20 MG Tab tablet Indications: Chronic daily headache Take 1 tablet by mouth 2 times daily. 10 tablet 0 04/06/2019 Active 2 ml prochlorperazine 5 mg/ml injection (1 source) Phenothiazine Start: 10-14-2019 End: 10-14-2019 take 5 mg intravenous route every twenty-four hours as needed 5 mg, Intravenous, Once as needed, nausea, Starting 10/14/19 at 1303, For 1 dose, PACU (only) Administer if ondansetron (Zofran), promethazine (Phenergan), and Metocolopramide (Reglan) ineffective or not ordered, or as directed by anesthesia, as needed for nausea/vomiting promethazine hydrochloride 12.5 mg oral tablet (9 sources) Phenothiazine Start: 08-06-2022 End: 07-19-2023 take 1-2 tablets by mouth every eight hours as needed for nausea Promethazine HCl 12.5 MG tablet Indications: Patellofemoral instability, right Take 1-2 by mouth every 8 hours as needed for nausea. 20 tablet 08/06/2022 07/19/2023 Discontinued (Stop Taking at Discharge) Promethazine (PHENERGAN) 6.25 mg in Sodium chloride 0.9%, with overfill 60.25 mL (total volume) IVPB (1 source) Start: 07-19-2023 End: 07-19-2023 take 6.25 mg intravenously every hour as needed 6.25 mg, Intravenous, at 180.8 mL/hr, Administer over 20 Minutes, EVERY 1 HOUR NEEDED, 2 doses, Starting on Sat07/19/23 at 1255, Until Sat07/19/23 at 1646, Other, Nausea and vomiting, Extravasation Risk, Recovery QUEtiapine 25 mg oral tablet (15 sources) Atypical Antipsychotic End: 07-19-2023 take 2 tablets by mouth once daily QUEtiapine 25 MG tablet Take 50 mg by mouth daily. 07/19/2023 Discontinued (Stop Taking at Discharge) 72 hr scopolamine 0.0139 mg/hr transdermal system (1 source) Anticholinergic Start: 08-06-2022 End: 08-06-2022 Scopolamine (TRANSDERM-SCOP) patch 1 patch 1000 ml sodium chloride 9 mg/ml injection (8 sources) Start: 07-23-2023 End: 07-23-2023 1,000 mL, Intravenous, ONCE, 1 dose, On Sat07/23/23 at 1345 Start: 04-04-2023 End: 04-04-2023 Sodium chloride 0.9% IV solu tion 500 mL Start: 01-03-2022 End: 01-03-2022 sodium chloride 0.9% IV solu tion 1,000 mL Start: 05-19-2019 End: 05-20-2019 sodium chloride 0.9% (NS) nata carri 1,000 mL Start: 12-14-2018 End: 12-14-2018 sodium chloride 0.9% (NS) nata carri 500 mL Start: 06-22-2018 End: 06-22-2018 sodium chloride 0.9% (NS) nata carri 1,000 mL Start: 06-16-2018 End: 06-16-2018 sodium chloride 0.9% (NS) nata carri 1,000 mL Start: 06-16-2018 End: 06-16-2018 sodium chloride (PF) (NS) fl ush 5 mL traMADol hydrochloride 50 mg oral tablet (5 sources) Opioid Agonist Start: 07-26-2022 End: 08-02-2022 take 1 tablet by mouth every six hours as needed for pain traMADol (ULTRAM) 50 mg tablet Indications: Right ureteral stone Take 1 (one) tablet (50 mg total) by mouth every 6 (six) hours as needed for pain . 10 tablet 0 07/26/2022 08/02/2022 Start: 11-07-2018 End: 11-13-2018 take 1 tablet by mouth every six hours as needed traMADol (ULTRAM) 50 MG Tab tablet Indications: Left shoulder pain, unspecified chronicity Take 1 tablet by mouth every 6 hours as needed for up to 4 days. 10 tablet 0 11/07/2018 11/13/2018 Discontinued (Alternate therapy) Problems Active Problems Problem Classification Problem Date Documented Da te Episodic/Chronic Administrative/social admission (2 sources) Encounter for pre-employment examination; Translations: [Encounter for pre-employment examination] Onset: 5 Episodic Anxiety disorders (20 sources) Anxiety; Translations: [Anxiety disorder, unspecified] Onset: 7 11-20-2016 Chronic Bacterial infection; unspecified site (3 sources) Bacteria present; Translations: [Streptococcus, group B, as the cause of diseases classified elsewhere] 11-23-2024 Episodic Comment on above: treat in labor Calculus of urinary tract (20 sources) Recurrent kidney stone; Translations: [Calculus of kidney] Onset: 2 Episodic Comment on above: 3 different times Cardiac dysrhythmias (20 sources) Postural orthostatic tachycardia syndrome ; Translations: [Other specified cardiac arrhythmias] Onset: 9 11-13-2018 Chronic Comment on above: Has service dog. Conditions associated with dizziness or vertigo (2 sources) Dizziness; Translations: [Dizziness] Onset: 5 Episodic Esophageal disorders (7 sources) Gastroesophageal reflux disease; Translations: [Gastro-esophageal reflux disease without esophagitis] Onset: 5 11-09-2024 Chronic Gastrointestinal hemorrhage (1 source) Blood-tinged feces; Translations: [Bloody stools] Headache; including migraine (20 sources) Chronic tension-type headache; Translations: [Muscular headache ] Onset: 7 Resolved: 1 11-20-2016 Chronic Headache; including migraine (20 sources) Headache; Translations: [Headache] Onset: 3 11-20-2016 Episodic Comment on above: Pre E labs/nl Headache; including migraine (3 sources) Chronic daily headache; Translations: [Headache; including migraine] Onset: 5 Joint disorders and dislocations; trauma-related (20 sources) Rupture of medial collateral ligament of knee ; Translations: [Tear of MCL (medial collateral ligament) of knee, right, initial encounter] Onset: 9 Resolved: 0 06-09-2018 Chronic Joint disorders and dislocations; trauma-related (1 source) Recurrent subluxation of the patella; Translations: [Recurrent subluxation of patella, right knee] Episodic Joint disorders and dislocations; trauma-related (2 sources) 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; Translations: [Recurrent dislocation, left shoulder] Mood disorders (8 sources) Bipolar II disorder; Translations: [Bipolar II disorder] Onset: 5 11-09-2024 Chronic Other circulatory disease (20 sources) Postural orthostatic tachycardia syndrome ; Translations: [POTS (postural orthostatic tachycardia syndrome)] Onset: 9 11-13-2018 Episodic Other complications of (1 source) Anemia of ; Translations: [Anemia complicating , unspecified trimester] 12-07-2024 Chronic Comment on above: add FE Other complications of (7 sources) High risk ; Translations: [Supervision of high risk , unspecified, unspecified trimester] 11-12-2024 Episodic Comment on above: , HILTON 01/26/26, Sahil PRR(scanned Donnell d), HILTON 01/26/26, Sahil Other complications of (7 sources) Urinary tract infection in ; Translations: [Unspecified infection of urinary tract in , unspecified trimester] 11-09-2024 Episodic Other complications of (2 sources) Other specified related conditions, unspecified trimester; Translations: [Other specified related conditions, unspecified trimester] Onset: 5 Episodic Other complications of (1 source) Supervision of high risk , unspecified, unspecified trimester; Translations: [Supervision of high risk , unspecified, unspecified trimester] Onset: 5 Episodic Other complications of (1 source) Unspecified infection of urinary tract in , unspecified trimester; Translations: [Unspecified infection of urinary tract in , unspecified trimester] Onset: 5 Episodic Other congenital anomalies (20 sources) Yola-Danlos syndrome; Translations: [Yola-Danlos syndrome, unspecified] Onset: 7 11-20-2016 Chronic Other congenital anomalies (14 sources) Yola-Danlos syndrome, type 3; 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-2024 Chronic Comment on above: growth scan Q4w 32w Other connective tissue disease (20 sources) Fibromyalgia; Translations: [Fibromyalgia] Onset: 9 11-13-2018 Episodic Other connective tissue disease (1 source) Fibromyalgia; Translations: [Fibromyalgia] Onset: 5 Episodic Other disorders of stomach and duodenum (20 sources) Gastroparesis syndrome; Translations: [Gastroparesis] Onset: 0 12-17-2019 Episodic Comment on above: stool softeners Other disorders of stomach and duodenum (1 source) Gastroparesis; Translations: [Gastroparesis] Onset: 5 Episodic Other gastrointestinal disorders (1 source) Chronic constipation; Translations: [Other constipation] Episodic Other gastrointestinal disorders (1 source) Abdominal bloating; Translations: [Abdominal distension (gaseous)] Episodic Other gastrointestinal disorders (2 sources) Obstipation; Translations: [Constipation, unspecified] 10-27-2024 Episodic Other lower respiratory disease (1 source) Cough; Translations: [Cough, unspecified type] 04-19-2024 Episodic Other nervous system disorders (1 source) Tremor; Translations: [Tremor, unspecified] Episodic Other nervous system disorders (2 sources) Postoperative pain ; Translations: [Other acute postprocedural pain] 07-19-2023 Episodic Other non-traumatic joint disorders (1 source) Shoulder pain; Translations: [Left shoulder pain, unspecified chronicity] Episodic Other and delivery including normal (11 sources) Urine test positive; Translations: [Encounter for test, result positive] Onset: 5 05-26-2024 Episodic Comment on above: NIPT low risk, gende r male-pt unsure if had carrier Other screening for suspected conditions (not mental disorders or infectious disease) (5 sources) Imaging result abnormal; Translations: [Abnormal findings on diagnostic imaging of other specified body structures] Onset: 3 Chronic Other screening for suspected conditions (not mental disorders or infectious disease) (8 sources) Electrocardiogram abnormal; Translations: [Abnormal electrocardiogram [ECG] [EKG]] Onset: 5 Episodic Other upper respiratory infections (20 sources) Pharyngitis; Translations: [Sore throat symptom] Onset: 1 Resolved: 1 Episodic Ovarian cyst (1 source) Cyst of right ovary; Translations: [Unspecified ovarian cyst, right side] 04-04-2023 Episodic Residual codes; unclassified (3 sources) History of arthroscopy of knee joint; Translations: [Other specified postprocedural states] Episodic Residual codes; unclassified (5 sources) History of operative procedure on knee; Translations: [S/P MCL repair] Onset: 0 12-17-2019 Episodic Residual codes; unclassified (1 source) Family history of breast cancer; Translations: [Family history of malignant neoplasm of breast] Episodic Residual codes; unclassified (1 source) Early satiety; Translations: [Early satiety] Episodic Residual codes; unclassified (2 sources) Gestation period, 19 weeks; Translations: [19 weeks gestation of ] Onset: 5 09-01-2024 Episodic Residual codes; unclassified (2 sources) Gestation period, 27 weeks; Translations: [27 weeks gestation of ] Onset: 5 10-27-2024 Episodic Residual codes; unclassified (1 source) 27 weeks gestation of ; Translations: [27 weeks gestation of ] Onset: 5 Episodic Residual codes; unclassified (1 source) 19 weeks gestation of ; Translations: [19 weeks gestation of ] Onset: 5 Episodic Residual codes; unclassified (2 sources) Encounter for procedure for purposes other than remedying health state, unspecified; Translations: [Encounter for procedure for purposes other than remedying health state, unspecified] Onset: 5 Episodic Residual codes; unclassified (2 sources) Requires vaccination; Translations: [Need for vaccination] Superficial injury; contusion (2 sources) Contusion of right knee; Translations: [Contusion of right knee, initial encounter] Episodic Umbilical cord complication (2 sources) Marginal insertion of umbilical cord 12-07-2024 Episodic Comment on above: growth Q4w Unclassified (5 sources) Well child; Translations: [Encounter for routine child health examination without abnormal findings] Onset: 7 10-01-2016 Unclassified (4 sources) Yola-Danlos syndrome, unspecified; Translations: [Yola-Danlos syndrome, unspecified] Onset: 7 Unclassified (2 sources) Ultrasound; Translations: [ Ultrasound] Onset: 5 Unclassified (2 sources) Routine Visit; Translations: [Routine Visit] Onset: 5 Unclassified (3 sources) Hypermobile Yola-Danlos syndrome; 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] Onset: 5 Unclassified (2 sources) Maternal Medicine Consultation (Consult); Translations: [Maternal Medicine Consultation (Consult)] Onset: 5 Unclassified (1 source) Cough, unspecified; Translations: [Cough, unspecified] Onset: 5 Viral infection (1 source) Viral disease; Translations: [Viral infection, unspecified] Episodic Past or Other Problems Problem Classification Problem Date Documented Da te Episodic/Chronic Abdominal pain (20 sources) Abdominal pain; Translations: [Generalized abdominal pain] Onset: 11-01-2020 Episodic Blindness and vision defects (20 sources) Blurring of visual image; Translations: [Other visual disturbances] Onset: 05-23-2016 Resolved: 08-08-2017 08-08-2017 Episodic Cardiac dysrhythmias (5 sources) Palpitations; Translations: [Palpitations] Onset: 01-24-2022 Episodic Contraceptive and procreative management (20 sources) IUD contraception; Translations: [Intrauterine contraceptive device in situ] Onset: 12-17-2019 12-17-2019 Episodic Diseases of mouth; excluding dental (20 sources) Aphthous ulcer of mouth; Translations: [Recurrent oral aphthae] Onset: 11-01-2020 Resolved: 12-23-2020 12-23-2020 Episodic Fluid and electrolyte disorders (20 sources) Dehydration; Translations: [Dehydration] Onset: 11-01-2020 11-01-2020 Episodic Gastrointestinal hemorrhage (20 sources) Blood-tinged feces; Translations: [Melena] Onset: 11-01-2020 Resolved: 12-23-2020 12-23-2020 Episodic Genitourinary symptoms and ill-defined conditions (11 sources) Dysuria; Translations: [Blood in urine] Onset: 12-05-2021 Episodic Influenza (3 sources) Influenza; Translations: [Influenza due to unidentified influenza virus with other respiratory manifestations] Onset: 04-19-2024 04-19-2024 Episodic Intestinal infection (20 sources) Viral gastroenteritis; Translations: [Viral intestinal infection, unspecified] Onset: 05-20-2019 Resolved: 06-01-2019 05-20-2019 Episodic Malaise and fatigue (20 sources) Tired; Translations: [Fatigue] Onset: 11-01-2020 11-01-2020 Episodic Menstrual disorders (20 sources) Irregular menstruation, unspecified; Translations: [Irregular periods] Onset: 10-01-2016 Resolved: 12-23-2020 10-01-2016 Chronic Mood disorders (20 sources) Mood disorders Onset: 06-15-2019 Resolved: 09-13-2022 06-15-2019 Nausea and vomiting (20 sources) Nausea; Translations: [Nausea and vomiting] Onset: 11-01-2020 Resolved: 12-23-2020 12-23-2020 Episodic Nonmalignant breast conditions (20 sources) Lump of upper outer quadrant of breast; Translations: [Unspecified lump in unspecified breast] Onset: 04-17-2022 Episodic Nonspecific chest pain (20 sources) Non-cardiac chest pain; Translations: [Other chest pain] Onset: 11-01-2020 Resolved: 12-23-2020 12-23-2020 Episodic Other and unspecified benign neoplasm (20 sources) 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left breast; Translations: [Benign neoplasm of left breast] Onset: 05-01-2022 Episodic Other and unspecified benign neoplasm (2 sources) Benign neoplasm of left breast; Translations: [Benign neoplasm of left breast] Onset: 05-01-2022 Episodic Other bone disease and musculoskeletal deformities (20 sources) Chondromalacia; Translations: [Chondromalacia, unspecified site] Onset: 11-01-2020 11-01-2020 Episodic Other connective tissue disease (20 sources) Muscle spasm of cervical muscle of neck; Translations: [Other muscle spasm] Onset: 03-18-2017 03-18-2017 Episodic Other gastrointestinal disorders (20 sources) Constipation; Translations: [Constipation, unspecified] Onset: 12-26-2021 01-12-2022 Episodic Other gastrointestinal disorders (4 sources) Abdominal distension (gaseous); Translations: [Abdominal distension (gaseous)] Onset: 04-23-2022 Episodic Other gastrointestinal disorders (4 sources) Other constipation; Translations: [Other constipation] Onset: 04-23-2022 Episodic Other injuries and conditions due to external causes (5 sources) Deliberate self-cutting; Translations: [Deliberate self-cutting] Onset: 06-08-2019 Resolved: 12-17-2019 06-08-2019 Chronic Other lower respiratory disease (20 sources) Difficulty breathing; Translations: [Other abnormalities of breathing] Onset: 05-23-2016 Resolved: 08-08-2017 08-08-2017 Episodic Other non-traumatic joint disorders (20 sources) Hip pain; Translations: [Pain in unspecified hip] Onset: 12-02-2017 Resolved: 11-13-2018 12-02-2017 Episodic Other non-traumatic joint disorders (20 sources) Knee pain; Translations: [Pain in right knee] Onset: 06-09-2018 Resolved: 06-09-2018 06-09-2018 Episodic Other non-traumatic joint disorders (3 sources) Shoulder joint unstable; Translations: [Instability of shoulder joint, unspecified laterality] Episodic Other non-traumatic joint disorders (20 sources) Other instability, right knee; Translations: [Instability of right patellofemoral joint] Onset: 09-22-2019 Resolved: 12-17-2019 09-22-2019 Episodic Other non-traumatic joint disorders (11 sources) Pain in right knee; Translations: [Pain in joint, lower leg] Onset: 06-09-2018 Resolved: 06-09-2018 Episodic Other skin disorders (20 sources) Acne vulgaris; Translations: [Acne vulgaris] Onset: 10-01-2016 10-01-2016 Episodic Other skin disorders (20 sources) Acne; Translations: [Acne vulgaris] Onset: 10-01-2016 10-01-2016 Episodic Residual codes; unclassified (20 sources) Deliberate self-cutting; Translations: [Other problems related to lifestyle] Onset: 06-08-2019 Resolved: 12-17-2019 12-17-2019 Episodic Residual codes; unclassified (2 sources) Family history of malignant neoplasm of breast; Translations: [Family history of malignant neoplasm of breast] Onset: 04-17-2022 Episodic Residual codes; unclassified (2 sources) Other specified postprocedural states; Translations: [Other specified postprocedural states] Onset: 08-29-2022 Episodic Spondylosis; intervertebral disc disorders; other back problems (20 sources) Pain in cervical spine; Translations: [Acute low back pain] Onset: 05-23-2016 Resolved: 08-08-2017 11-20-2016 Episodic Sprains and strains (20 sources) Rupture of medial collateral ligament of knee ; Translations: [Sprain of medial collateral ligament of right knee, initial encounter] Onset: 06-09-2018 Resolved: 12-17-2019 06-09-2018 Episodic Unclassified (20 sources) Patient encounter status; Translations: [Encounter for routine child health examination without abnormal findings] Onset: 10-01-2016 Resolved: 06-01-2019 10-01-2016 Unclassified (1 source) Onset: 05-14-2022 05-14-2022 Unclassified (1 source) Cough, unspecified; Translations: [Cough, unspecified] Onset: 04-19-2024 Results Test Name Value Interpretation Reference Range Facility Absolute lymphocyte countOrd ered By: Lenoraaustyn Vidal on 12-07-2024 Lymphocytes Auto (Unsp spec) [#/Vol] 1.26 10*3/uL 0.83-4.51 [facility] Absolute neutrophil countOrd ered By: Lenora Vidal on 12-07-2024 Neutrophils (Bld) [#/Vol] 6.9 10*3/uL 2.0-7.7 [facility] Anion gap in Serum or Plasma Ordered By: Lenoraaustyn Vidal on 12-07-2024 Anion gap [Moles/Vol] 12 mmol/L 5- [facility] Automated lymphocyte count a s percentage of total leukocytesOrdered By: Lenora Vidal on 12-07-2024 Lymphocytes/100 WBC Auto (Unsp spec) 14.1 % Low 19- [facility] BUN/creatinine ratioOrdered By: Lenoraaustyn Vidal on 12-07-2024 Urea nitrogen/Creatinine [Mass ratio] 15.3 mg/mg - [facility] Basophil percentageOrdered B y: Lenora Vidal on 12-07-2024 Basophils/100 WBC (Bld) 0.3 % 0-1 [facility] Bilirubin, totalOrdered By: Lenoraaustyn Vidal on 12-07-2024 Bilirubin [Mass/Vol] mg/dL 0.00-1.30 [facility] CBC W/Diff, Automatedon 10- Absolute Lymph 1.26 X10 3/uL Normal 0.83-4.51 [facility] Comment on above: Performed By: #### L [id number], L501.0900, L100.0100 #### [facility] [address] [place], [address] Absolute Neut 6.9 X10 3/uL Normal 2.0-7.7 [facility] Comment on above: Performed By: #### L [id number], L501.0900, L100.0100 #### [facility] [address], [address] Basophils/100 WBC (Bld) 0.3 % Normal 0-1 [facility] Comment on above: Performed By: #### L [id number], L501.0900, L100.0100 #### [facility] [address] [place], [address] Eosinophils/100 WBC (Bld) 1.3 % Normal 0-5 [facility] Comment on above: Performed By: #### L [id number], L501.0900, L100.0100 #### [facility] [address] [place], [address] Erythrocyte distribution width (RBC) [Ratio] 12.7 % Normal 11.6-14.6 [facility] Comment on above: Performed By: #### L 500.4050, L501.0900, L100.0100 #### [facility] [address] [place], [address] Hematocrit (Bld) [Volume fraction] 30.5 % Low 37-47 [facility] Comment on above: Performed By: #### L [id number], L501.0900, L100.0100 #### [facility] [address] [place], [address] Hemoglobin (Bld) [Mass/Vol] 10.3 g/dL Low 12.0-15.0 [facility] Comment on above: Performed By: #### L 500.4050, L501.0900, L100.0100 #### [facility] [address] [place], [address] IG% 0.700 Normal 0.0-0.9 [facility] Comment on above: Result Comment: IG% - Immature Granulocytes (promyelocytes, myelocytes and metamyelocytes) > 1% indicates that a LEFT SHIFT is Present. Performed By: #### L [id number], L501.0900, L100.0100 #### [facility] [address] [place], [address] Lymphocytes/100 WBC (Bld) 14.1 % Low 19-41 [facility] Comment on above: Performed By: #### L [id number], L501.0900, L100.0100 #### [facility] [address] [place], [address] MCH (RBC) [Entitic mass] 30.5 pg Normal 27.0-32.0 [facility] Comment on above: Performed By: #### L 500.4050, L501.0900, L100.0100 #### [facility] [address] [place], [address] MCHC (RBC) [Mass/Vol] 33.8 g/dL Normal 32-36 [facility] Comment on above: Performed By: #### L 500.4050, L501.0900, L100.0100 #### [facility] [address] [place], [address] MCV (RBC) [Entitic vol] 90.2 fL Normal 81-99 [facility] Comment on above: Performed By: #### L 500.4050, L501.0900, L100.0100 #### [facility] [address] [place], [address] Monocytes/100 WBC (Bld) 6.3 % Normal 0-10 [facility] Comment on above: Performed By: #### L 500.4050, L501.0900, L100.0100 #### [facility] [address] [place], [address] Neutrophils/100 WBC (Bld) 77.3 % High 47-70 [facility] Comment on above: Performed By: #### L 500.4050, L501.0900, L100.0100 #### [facility] [address] [place], [address] Nucleated RBC (Bld) [#/Vol] 0 10*3/uL Normal 0-5 [facility] Comment on above: Performed By: #### L 500.4050, L501.0900, L100.0100 #### [facility] [address] [place], [address] Platelet mean volume (Bld) [Entitic vol] 10.4 fL Normal 6.2-12.0 [facility] Comment on above: Performed By: #### L 500.4050, L501.0900, L100.0100 #### [facility] [address] [place], [address] Platelets (Bld) [#/Vol] 261 10*3/uL Normal 150-450 [facility] Comment on above: Performed By: #### L 500.4050, L501.0900, L100.0100 #### [facility] [address] [place], [address] RBC (Bld) [#/Vol] 3.38 10*6/uL Low 4.2-5.4 [facility] Comment on above: Performed By: #### L 500.4050, L501.0900, L100.0100 #### [facility] [address] [place], [address] RDW SD 41.1 fl Normal 35.1-43.9 [facility] Comment on above: Performed By: #### L 500.4050, L501.0900, L100.0100 #### [facility] [address] [place], [address] WBC (Bld) [#/Vol] 8.9 10*3/uL Normal 4.4-11.0 [facility] Comment on above: Performed By: #### L 500.4050, L501.0900, L100.0100 #### [facility] [address] [place], [address] Carbon dioxide, total [Moles /volume] in Central venous bloodOrdered By: Lenora Vidal on 12-07-2024 CO2 [Moles/Vol] 19.7 mmol/L Low 21.0-32.0 [facility] Chloride assayOrdered By: Enio Vidal on 12-07-2024 Chloride [Moles/Vol] 106 mmol/L 98-108 [facility] Comprehensive Metabolic Prof ilon 12-07-2024 Albumin [Mass/Vol] 3.3 g/dL Low 3.5-5.0 [facility] Comment on above: Performed By: #### L 500.4050, L501.0900, L100.0100 #### [facility] [address] [place], [address] Albumin/Globulin [Mass ratio] 1.2 {ratio} Normal 0.9-2.4 [facility] Comment on above: Performed By: #### L 500.4050, L501.0900, L100.0100 #### [facility] [address] [place], [address] ALK PHOS 200 U/L High 35-104 [facility] Comment on above: Performed By: #### L 500.4050, L501.0900, L100.0100 #### [facility] [address] [place], [address] ALT [Catalytic activity/Vol] 10 U/L Normal <=34 [facility] Comment on above: Performed By: #### L 500.4050, L501.0900, L100.0100 #### [facility] [address] [place], [address] AST [Catalytic activity/Vol] 17 U/L Normal <=31 [facility] Comment on above: Performed By: #### L 500.4050, L501.0900, L100.0100 #### [facility] [address] [place], [address] BUN/CRE 15.3 RATIO Normal 10-20 [facility] Comment on above: Performed By: #### L 500.4050, L501.0900, L100.0100 #### [facility] [address] [place], [address] Calcium [Mass/Vol] 9.1 mg/dL Normal 7.6-11.0 [facility] Comment on above: Performed By: #### L 500.4050, L501.0900, L100.0100 #### [facility] [address] [place], [address] Chloride [Moles/Vol] 106 mmol/L Normal 98-108 [facility] Comment on above: Performed By: #### L 500.4050, L501.0900, L100.0100 #### [facility] [address] [place], [address] CO2 [Moles/Vol] 19.7 mmol/L Low 21.0-32.0 [facility] Comment on above: Performed By: #### L 500.4050, L501.0900, L100.0100 #### [facility] [address] [place], [address] Creatinine [Mass/Vol] 0.56 mg/dL Low 0.70-1.20 [facility] Comment on above: Performed By: #### L 500.4050, L501.0900, L100.0100 #### [facility] [address] [place], [address] GAP 12 Normal 5-15 [facility] Comment on above: Performed By: #### L 500.4050, L501.0900, L100.0100 #### [facility] [address] [place], [address] GFR/1.73 sq M.predicted among non-blacks MDRD (S/P/Bld) [Vol rate/Area] 133 mL/min/{1.73_m2} Normal >60 [facility] Comment on above: Result Comment: mL/m in/1.73m2 CKD-EPI Creatinine Equation (2020) Performed By: #### L 500.4050, L501.0900, L100.0100 #### [facility] [address] [place], [address] Globulin (S) [Mass/Vol] 2.7 g/dL Normal 2.2-4.2 [facility] Comment on above: Performed By: #### L 500.4050, L501.0900, L100.0100 #### [facility] [address] [place], [address] Glucose [Mass/Vol] 68 mg/dL Low 70-99 [facility] Comment on above: Performed By: #### L 500.4050, L501.0900, L100.0100 #### [facility] [address] [place], [address] Potassium [Moles/Vol] 4.1 mmol/L Normal 3.3-5.1 [facility] Comment on above: Performed By: #### L 500.4050, L501.0900, L100.0100 #### [facility] [address] [place], [address] Sodium [Moles/Vol] 138 mmol/L Normal 133-145 [facility] Comment on above: Performed By: #### L 500.4050, L501.0900, L100.0100 #### [facility] [address] [place], [address] T BILI < 0.15 Normal 0.00-1.30 [facility] Comment on above: Performed By: #### L 500.4050, L501.0900, L100.0100 #### [facility] [address] [place], [address] T PROT 6.0 g/dL Normal 5.9-8.4 [facility] Comment on above: Performed By: #### L 500.4050, L501.0900, L100.0100 #### [facility] [address] [place], [address] Urea nitrogen [Mass/Vol] 9 mg/dL Normal 4-19 [facility] Comment on above: Performed By: #### L 500.4050, L501.0900, L100.0100 #### [facility] [address] [place], [address] Eosinophil percentageOrdered By: Lenora Vidal on 12-07-2024 Eosinophils/100 WBC (Bld) 1.3 % 0-5 [facility] Erythrocyte distribution wid th ratioOrdered By: Lenora Vidal on 12-07-2024 Erythrocyte distribution width (RBC) [Ratio] 12.7 % 11.6-14.6 [facility] Erythrocyte distribution wid th standard deviationOrdered By: Lenora Vidal on 12-07-2024 Erythrocyte distribution width (RBC) [Ratio] 41.1 fl 35.1-43.9 [facility] Glomerular filtration rate ( GFR) estimation/1.73 sq m using serum, plasma, or whole bOrdered By: Lenora Vidal on 12-07-2024 GFR/1.73 sq M.predicted among non-blacks MDRD (S/P/Bld) [Vol rate/Area] 133 mL/min/{1.73_m2} >60 [facility] Comment on above: mL/min/1.73m2 CKD-EP I Creatinine Equation (2020) Hematocrit Auto (Bld) [Volum e fraction]Ordered By: Lenora Vidal on 12-07-2024 Hematocrit (Bld) [Volume fraction] 30.5 % Low 37-47 [facility] Hemoglobin measurementOrdere d By: Lenora Vidal on 12-07-2024 Hemoglobin (Bld) [Mass/Vol] 10.3 g/dL Low 12.0-15.0 [facility] Immature granulocytes/100 WB C Auto (Bld)Ordered By: Lenora Vidal on 12-07-2024 Immature granulocytes/100 WBC (Bld) 0.700 % 0.0-0.9 [facility] Comment on above: IG% - Immature Granu locytes (promyelocytes, myelocytes and metamyelocytes) > 1% indicates that a LEFT SHIFT is Present. Laboratory - Chemistry and C hemistry - challengeOrdered By: Lenora Vidal on 12-07-2024 AST [Catalytic activity/Vol] 17 U/L <32 [facility] MCV (mean corpuscular volume ) determinationOrdered By: Lenora Vidal on 12-07-2024 MCV (RBC) [Entitic vol] 90.2 fL 81-99 [facility] Mean corpuscular hemoglobin (MCH) determinationOrdered By: Lenora Vidal on 12-07-2024 MCH (RBC) [Entitic mass] 30.5 pg 27.0-32.0 [facility] Mean corpuscular hemoglobin concentration (MCHC) determinationOrdered By: Lenora Vidal on 12-07-2024 MCHC (RBC) [Mass/Vol] 33.8 g/dL 32-36 [facility] Mean platelet volume determi nationOrdered By: Lenora Vidal on 12-07-2024 Platelet mean volume (Bld) [Entitic vol] 10.4 fL 6.2-12.0 [facility] Monocyte percentageOrdered B y: Lenora Vidal on 12-07-2024 Monocytes/100 WBC (Bld) 6.3 % 0-10 [facility] Neutrophil percentageOrdered By: Lenora Vidal on 12-07-2024 Neutrophils/100 WBC (Bld) 77.3 % High 47-70 [facility] Nucleated red blood cell per centageOrdered By: Lenora Vidal on 12-07-2024 Nucleated RBC/100 WBC (Bld) [Ratio] 0 % 0-5 [facility] Glass [facility]eveller Office Visit Reporton 12-07-2024 [facility] Office Visit Report [facility]'[address], [address] [place] [address] OFFICE VISIT Date of Service: 12/07/24 MR#: [id number] Acct: [id number] Name: ETHAN HIGH Rep #: [id number] 18 : 2005 Provider: DASIA miranda Age/Sex: 19/F [place] [facility] [place] Status: Signed Intake Vital Signs 11/19/24 13:02 12/07/24 08:17 Height 5 ft 8.5 in 5 ft 8.5 in Weight: 183 lb 5 oz BMI 27.4 BP 122/81 H Intake Visit Reasons: 32 WK 6D OB Tower Hand Required: No Is patient in pain?: No Allergies coconut Allergy (Intermediate, Verified 12/07/24 08:21) Hives Latex, Natural Rubber Allergy (Intermediate, Verified 12/07/24 08:21) Rash Medications ???Medication ???Instructions ???Recorded ???Confirmed ???Type PNV 153-FA 400 mcg-om3 35 mg-dha tab PO 11/12/24 12/07/24 History 25 mg-epa 5 mg-fish oil chew tablet famotidine 40 mg tablet (Pepcid) 40 mg PO BID 11/12/24 12/07/24 His tory Last Menstrual Period: 04/21/24 Zika: Zika virus screening: Negative : Yes PFSH PFSH Medical History Heart murmur Depression Post concussion syndrome Irregular periods (10/01/16) Hematochezia (11/01/20) Deliberate self-cutting (06/08/19) Aphthous ulcer of mouth (11/01/20) Anxiety Anemia Nephrolithiasis Surgical History Hx of laparoscopy History of esophagogastroduodenosco py (EGD) ( 2018) Hx of colonoscopy ( 2018) H/O lithotripsy ( 2022) S/P breast biopsy, left (04/25/22) H/O right knee surgery (08/06/22) Hx of appendectomy History of tonsillectomy and adenoidectomy (12/04/17) Family History Mother CVA (cerebral vascular accident), Onset Age: 30 Hypertension Maternal Grandmother Diabetes Non-alcoholic micronodular cirrhosis of liver Splenic artery aneurysm Arthritis Maternal Grandfather High cholesterol Hypertension Sister PCOS (polycystic ovarian syndrome) half sister Bipolar 1 disorder half sister Borderline personality disorder Half sister Inappropriate sinus tachycardia half sister Brother Autism half brother Epilepsy half brother Uncle Cancer, Onset Age: 35 skin Social History adopted: No household members: spouse current occupational status: unemployed and student 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 current occupational exposures/hazards: No pets and animals: Yes pets and animals: dog(s) history of recent travel: Yes ( -September) out of state: Yes out of country: No sexually active: Yes Smoking Status: Never smoker alcohol intake: current details: not while substance use type: does not use well-balanced diet: daily or most days caffeine: Yes Type: coffee Number of servings: 1 eating out: rarely or never during the past year weight has: increased > 10 lbs what type of physical activity do you participate in: walking frequency: 5-6 times per week duration: 30-45 minutes/day magdiel/adventism: None seatbelt use: always do you feel safe at home: Yes additional social history: Millie Castano History 1 Elective abortions Hx Para 0 Spontaneous abortions Hx # Term Pregnancies Ectopic pregnancies Hx # Pregnancies Multiple births # of living children HPI 32 WK 6D OB Details: ETHAN SINGH is a 19 year old who presents for routine OB visit. OB Visit [facility] Calculator Estimated Delivery Date Method Current WG Current Estimate 01/26/25 LMP (Uncertain) 32w 6d Expected Delivery Route/Plan Labor Preferences- CB/BF classes: encouraged labor support person: Sahil labor intervention preferences: [] pain management options preferred: wants limited intervention cut cord/dad catch: cord : yes PP control planned: [] discussed possible routes of delivery and associated risks: [] special requests: [] Specific Issue/Plans Covid status: [] Flu vaccine: [] Tdap vaccine: received in [place] Rhogam: NA LARC form signed: yes Problem list reviewed and updated with the most current plan of care details and appropriate orders placed. Relevant counseling for the gestational age provided. Continue routine care and follow up unless otherwise noted in visit notes/problem list details Initial Weight: Not Recorded Date -???-???-???-???-???-??? -???-???-???-???-???-??? - EGA Weight BP Urine Prot -???-???-???-???-???-??? -???-???-???-???-???-??? - Glucose FHR FuHt Pres Dilation -???-???-???-???-???-??? -???-???-???-???-???-??? - Effaced St Visit Note 11/19/24 -???-???-???-???-???-??? -???-???-???-???-???-??? - 30w 2d (more content not included)... Normal [facility] Platelet countOrdered By: Enio Vidal on 12-07-2024 Platelets (Bld) [#/Vol] 261 10*3/uL 150-450 [facility] Potassium measurement (mass/ volume)Ordered By: Lenora Vidal on 12-07-2024 Potassium (Unsp spec) [Mass/Vol] 4.1 mmol/L 3.3-5.1 [facility] Protein+Creatinine Ratio,Uri neon 12-07-2024 PROT:CRE RATIO 169 mg/g CRE Normal 0-200 [facility] Comment on above: Performed By: #### L 500.4050, L501.0900, L100.0100 #### [facility] [address], [address] Protein (U) [Mass/Vol] 14.4 mg/dL High 0.0-12.0 [facility] Comment on above: Performed By: #### L 500.4050, L501.0900, L100.0100 #### [facility] [address] [place], [address] UR CREAT 85.20 mg/dL Normal 28.00-217.00 [facility] Comment on above: Performed By: #### L 500.4050, L501.0900, L100.0100 #### [facility] [address] [place], [address] RBC Auto (Bld) [#/Vol]Ordere d By: Lenora Vidal on 12-07-2024 RBC (Bld) [#/Vol] 3.38 10*6/uL Low 4.2-5.4 [facility] Random urine creatinine melissa urement (mass/volume)Ordered By: Lenora Vidal on 12-07-2024 Creatinine Unsp time (U) [Mass/Vol] 85.20 mg/dL 28.00-217.00 [facility] Serum creatinine measurement (mass/volume)Ordered By: Lenora Vidal on 12-07-2024 Creatinine [Mass/Vol] 0.56 mg/dL Low 0.70-1.20 [facility] Serum globulin measurementOr dered By: Lenora Vidal on 12-07-2024 Globulin (S) [Mass/Vol] 2.7 g/dL 2.2-4.2 [facility] Serum glucose measurement (m ass/volume)Ordered By: Lenora Vidal on 12-07-2024 Glucose [Mass/Vol] 68 mg/dL Low 70-99 [facility] Serum or plasma alanine james otransferase (ALT) measurementOrdered By: Lenora Vidal on 12-07-2024 ALT [Catalytic activity/Vol] 10 U/L <35 [facility] Serum or plasma albumin melissa urement (mass/volume)Ordered By: Lenora Vidal on 12-07-2024 Albumin [Mass/Vol] 3.3 g/dL Low 3.5-5.0 [facility] Serum or plasma albumin/glob ulin mass ratioOrdered By: Lenora Vidal on 12-07-2024 Albumin/Globulin [Mass ratio] 1.2 {ratio} 0.9-2.4 [facility] Serum or plasma alkaline doris sphatase measurementOrdered By: Lenora Vidal on 12-07-2024 ALP [Catalytic activity/Vol] 200 U/L High 35-104 [facility] Serum or plasma calcium melissa urement (mass/volume)Ordered By: Lenora Vidal on 12-07-2024 Calcium [Mass/Vol] 9.1 mg/dL 7.6-11.0 [facility] Serum or plasma urea nitroge n measurement (mass/volume)Ordered By: Lenora Vidal on 12-07-2024 Urea nitrogen [Mass/Vol] 9 mg/dL 4-19 [facility] Sodium levelOrdered By: Meghan Vidal on 12-07-2024 Sodium [Moles/Vol] 138 mmol/L 133-145 [facility] Total proteinOrdered By: Gladis benton Marcy on 12-07-2024 Protein [Mass/Vol] 6.0 g/dL 5.9-8.4 [facility] Urine protein measurement (m ass/volume)Ordered By: Lenora Vidal on 12-07-2024 Protein (U) [Mass/Vol] 14.4 mg/dL High 0.0-12.0 [facility] Urine protein/creatinine mas s ratioOrdered By: Lenora Vidal on 12-07-2024 Protein/Creatinine (U) [Mass ratio] 169 mg/g CRE 0-200 [facility] White blood cell (WBC) count Ordered By: Lenora Vidal on 12-07-2024 WBC (Bld) [#/Vol] 8.9 10*3/uL 4.4-11.0 [facility] ED Prov Noteon 12-04-2024 ED Prov Note ED PROVIDER NOTE [facility] NAME: Ethan Hernandez Means AGE: 19 y.o. : 2005 VISIT DATE: 12/04/2024 CSN: [id number] PCP: Meme Gimenez, ARNOLD Chief Complaint Patient presents with Cough Triage note: Pt awoke this am with cough and nasal drainage this am. History provided by: Patient Cough Cough characteristics: Non-productive Chronicity: New Duration: 15 hours Onset quality: Sudden Timing: Constant Severity: Mild Relieved by: None tried Associated symptoms: rhinorrhea and sinus congestion Associated symptoms: no chills, no diaphoresis, no ear fullness, no fever, no rash, no shortness of breath and no wheezing Past Medical History: Diagnosis Date Anemia Anxiety Arrhythmia Autonomic dysfunction Bipolar 2 disorder (HCC) Depression Yola-Danlos disease Fatigue Fibromyalgia, primary Gastroparesis Major depressive disorder POTS (postural orthostatic tachycardia syndrome) Past Surgical History: Procedure Laterality Date ADENOIDECTOMY age 4 APPENDECTOMY 12/04/2017 without diagnostic abnormality.....Dr. Robbin Jain ARHTROSCOPY KNEE WITH OR WITHOUT MENISECTOMY Right 10/14/2019 Procedure: Right knee tibial tubercle osteotomy with a medial soft tissue imbrication and lateral release; Surgeon: Mary Miguel MD; Location: Main OR; Service: Orthopedic COLONOSCOPY 12/12/2018 [facility] CYSTO LATISHA LASER, RETRO, URETEROSCOPY, STENT (USUAL) Right 07/26/2022 Procedure: CYSTOSCOPY WITH RETROGRADE STONE MANIPULATION STENT INSERTION WITH LASER; Surgeon: Candace Trammell MD; Location: Main OR; Service: Urology CYSTO URETERAL STENT REMOVAL 08/02/2022 ESOPHAGOGASTRODUODENOSCO PY 12/12/2018 [facility] TONSILLECTOMY age 4 US BREAST BIOPSY LEFT Left 04/25/2022 US BREAST BIOPSY LEFT 04/25/2022 Meme Ortega MD ULTRASOUND Family History Problem Relation Age of Onset Stroke Mother Ovarian cancer Mother 19 Autism Brother Breast cancer Paternal Aunt 40 Diabetes Maternal Grandmother Hyperlipidemia Maternal Grandmother Hypertension Maternal Grandmother Hyperlipidemia Maternal Grandfather Hypertension Maternal Grandfather Colon cancer Neg Hx Rectal cancer Neg Hx Social History [1] Previous Medications Medication Sig vitamin with Ca-Iron-FA 27-1 mg Tab Take 1 (one) tablet by mouth daily . polyethylene glycol (MIRALAX) 17 gram powder Take 17 (seventeen) g by mouth daily . Allergies[2] Review of Systems Constitutional: Negative for chills, diaphoresis and fever. HENT: Positive for rhinorrhea. Respiratory: Positive for cough. Negative for shortness of breath and wheezing. Skin: Negative for rash. Patient Vitals for the past 24 hrs: BP Temp Temp src Pulse Resp SpO2 Weight 12/04/24 1340 -- -- -- -- -- 97 % -- 12/04/24 1337 119/74 98.3 degrees F (36.8 degrees C) Oral 71 18 97 % 77.1 kg (170 lb) Physical Exam Vitals and nursing note reviewed. Constitutional: General: She is awake. She is not in acute distress. Appearance: Normal appearance. She is well-developed. She is not toxic-appearing or diaphoretic. HENT: Nose: Congestion present. No rhinorrhea. Mouth/Throat: Mouth: Mucous membranes are moist. Pharynx: Oropharynx is clear. No oropharyngeal exudate. Eyes: General: Right eye: No discharge. Left eye: No discharge. Extraocular Movements: Extraocular movements intact. Comments: PER, unremarkable size Neck: Trachea: No tracheal deviation. Cardiovascular: Rate and Rhythm: Normal rate and regular rhythm. Pulses: Normal pulses. Musculoskeletal: Cervical back: Normal range of motion. Pulmonary: Effort: Pulmonary effort is normal. No respiratory distress. Breath sounds: Normal breath sounds. No wheezing or rales. Abdominal: Comments: Gravid, appropriate for stated EGA of 33 weeks Skin: General: Skin is warm and dry. Neurological: General: No focal deficit present. Mental Status: She is alert. Motor: No abnormal muscle tone. Coordination: Coordination normal. Comments: Awake, alert and appropriate. Psychiatric: Mood and Affect: Mood normal. Behavior: Behavior normal. Behavior is cooperative. Laboratory & Radiographic Imaging (if done): Results for orders placed or performed during the hospital encounter of 12/04/24 POC Strep A - Molecular Result Value Ref Range Strep A Not Detected Not Detected POC COV2/FLU/RSV MOLECULAR PANEL Result Value Ref Range RSV Not Detected Not Detected INFLUENZA A Not Detected Not Detected INFLUENZA B Not Detected Not Detected SARS-COV-2 Not Detected Not Detected No orders to display Procedures Medical Decision Making . . Clinical Impression: 1. Viral URI with cough 2. Patient-requested procedure ED Disposition ED Disposition Discharge Condition Stable Comment Ethan Hernandez Means discharged to home/s (more content not included)... Normal [facility] POC COV2/FLU/RSV MOLECULAR P Inderjit 12-04-2024 POC INFLUENZA A Not detected Normal Not Detected [facility] Comment on above: Performed By: #### P [id number] #### [facility] [address] [address] Robert Nguyen D.O. [id number] POC INFLUENZA B Not detected Normal Not Detected [facility] Comment on above: Performed By: #### P [id number] #### [facility] [address] [address] Robert Nguyen D.O. [id number] POC RSV Not detected Normal Not Detected [facility] Comment on above: Performed By: #### P [id number] #### [facility] [address] [address] Robert Nguyen D.O. [id number] SARS-CoV-2 (COVID-19) RNA GISSELLE+probe Ql (Unsp spec) Not detected Normal Not Detected [facility] Comment on above: Result Comment: This test was performed under the FDA's Emergency Use Authorization (EUA). Testing was performed using the Xpert Xpress SARS-CoV-2 RT-PCR GnamGnam assay on the GeneXpert Dx platform. This test has not been approved for use in asymptomatic patients and its performance in this patient population has not been evaluated. Negative results do not rule out the presence of SARS-CoV-2/COVID-19. Fact sheets for this EUA can be found at the following links: For Healthcare Providers: https://www.fda.gov/media/037738/download For Patients: https://www.fda.gov/media/593516/download Performed By: #### P [id number] #### [facility] [address] [address] Robert Nguyen D.O. [id number] POC STREP A- MOLECULARon POC STREP A MOLECULAR Not detected Normal Not Detected [facility] Comment on above: Performed By: #### P [id number] #### [facility] [address] [address] Robert Nguyen D.O. [id number] Urine Cultureon 11-22-2024 URC #1, 2 Below infectio n level. Urine Culture Streptococcus agalactiae (B) [place] Count 1000-10,000 Mixed Gram Positive Organisms Mixed Gram Positive Organisms MIXC Mixed contaminants. Submit a new specimen if indicated. Streptococcus agalactiae (B): REACTION Ampicillin Islt DARSHAN <=0.25 cefTRIAXone Islt DARSHAN <=0.12 S Clindamycin.induced Susc Islt Linezolid Islt DARSHAN <=2 S Vancomycin Islt DARSHAN 0.5 S Normal [facility] Comment on above: Performed By: #### M 100.2200 #### [facility] [address] [place], [address] Laboratory - Chemistry and C hemistry - challengeOrdered By: Maribell Franklin on 11-19-2024 Glucose Ql (U) Negative [facility] - UrinalysisOrder ed By: Maribell Franklin on 11-19-2024 Protein Ql (U) Negative [facility] Office Visit Reporton 11-19-2024 [facility] Visit Report [facility] [address], [address] [place] [address] OFFICE VISIT Date of Service: 11/19/24 MR#: [id number] Acct: [id number] Name: MARY ETHAN SINGH Rep #: [id number] : 2005 Provider: Dr. Maribell Santiago DO Age/Sex: 19/F [place] [facility] [place] Status: Signed Intake Vital Signs 11/19/24 13:02 Height 5 ft 8.5 in Weight: 176 lb 5 oz BMI 26.4 BP 120/72 Intake Visit Reasons: 30 wk OB DENIS/SM Chief Complaint: 30 Week OB/DENIS Tower Hand Required: No Is patient in pain?: No Allergies coconut Allergy (Intermediate, Verified 11/19/24 13:01) Hives Latex, Natural Rubber Allergy (Intermediate, Verified 11/19/24 13:01) Rash Medications ???Medication ???Instructions ???Recorded ???Confirmed ???Type PNV 153-FA 400 mcg-om3 35 mg-dha tab PO 11/12/24 11/12/24 History 25 mg-epa 5 mg-fish oil chew tablet famotidine 40 mg tablet (Pepcid) 40 mg PO BID 11/12/24 11/12/24 His tory Last Menstrual Period: 04/21/24 Zika: Zika virus screening: Negative : No PFSH PFSH Medical History Heart murmur Depression Post concussion syndrome Irregular periods (10/01/16) Hematochezia (11/01/20) Deliberate self-cutting (06/08/19) Aphthous ulcer of mouth (11/01/20) Anxiety Anemia Nephrolithiasis Surgical History Hx of laparoscopy History of esophagogastroduodenosco py (EGD) ( 2018) Hx of colonoscopy ( 2018) H/O lithotripsy ( 2022) S/P breast biopsy, left (04/25/22) H/O right knee surgery (08/06/22) Hx of appendectomy History of tonsillectomy and adenoidectomy (12/04/17) Family History Mother CVA (cerebral vascular accident), Onset Age: 30 Hypertension Maternal Grandmother Diabetes Non-alcoholic micronodular cirrhosis of liver Splenic artery aneurysm Arthritis Maternal Grandfather High cholesterol Hypertension Sister PCOS (polycystic ovarian syndrome) half sister Bipolar 1 disorder half sister Borderline personality disorder Half sister Inappropriate sinus tachycardia half sister Brother Autism half brother Epilepsy half brother Uncle Cancer, Onset Age: 35 skin Social History adopted: No household members: spouse current occupational status: unemployed and student 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 current occupational exposures/hazards: No pets and animals: Yes pets and animals: dog(s) history of recent travel: Yes ( -September) out of state: Yes out of country: No sexually active: Yes Smoking Status: Never smoker alcohol intake: current details: not while substance use type: does not use well-balanced diet: daily or most days caffeine: Yes Type: coffee Number of servings: 1 eating out: rarely or never during the past year weight has: increased > 10 lbs what type of physical activity do you participate in: walking frequency: 5-6 times per week duration: 30-45 minutes/day magdiel/adventism: None seatbelt use: always do you feel safe at home: Yes additional social history: Millie Castano History 1 Elective abortions Hx Para 0 Spontaneous abortions Hx # Term Pregnancies Ectopic pregnancies Hx # Pregnancies Multiple births # of living children HPI 30 wk OB DENIS/SM Details: ETHAN SINGH is a 19 year old who presents for routine OB visit. OB Visit [facility] Calculator Estimated Delivery Date Method Current WG Current Estimate 01/26/25 LMP (Uncertain) 30w 2d Comments: HIV: Urine Culture: Sequential Screen: NIPT Screen: Initial Weight: Not Recorded Date -???-???-???-???-???-??? -???-???-???-???-???-??? - EGA Weight BP Urine Prot -???-???-???-???-???-??? -???-???-???-???-???-??? - Glucose FHR FuHt Pres Dilation -???-???-???-???-???-??? -???-???-???-???-???-??? - Effaced St Visit Note 11/19/24 -???-???-???-???-???-??? -???-???-???-???-???-??? - 30w 2d 176 lb 5 oz 120/72 Negative -???-???-???-???-???-??? -???-???-???-???-???-??? - Negative 146 29 -???-???-???-???-???-??? -???-???-???-???-???-??? - JV- new DENIS from [facility]. was not happy with care there. Needs follow up growth with [facility] for EDS. had low risk nipt. normal glucola. ACOG First Trimester First Trimester: Desire for , Alcohol, Tobacco Cessation, Illicit/Recreational Drug/Substance Use, Intimate Partner Violence, Barriers to care, Unstable Housing, Communication Barriers, Environmental/Work Hazards, Anticipated Course of Care, Nurtrition and weight gain, Toxoplasmosis Precations, Use of Any medications, Sexual activity, Exercise, Dental Care, (more content not included)... Normal [facility] Urine cultureOrdered By: Holly Franklin on 11-19-2024 Bacteria identified Cx Nom (U) Streptococcus agalactiae (B) Abnormal [facility] Bacteria identified Cx Nom (U) Positive Abnormal [facility] URINE CULTUREon 11-06-2024 Bacteria identified Cx Nom (U) SPECIMEN DESCRIPTION URINE CLEAN CATCH COLONY COUNT 30,000-40,000 C/C/ML CULTURE STREPTOCOCCUS AGALACTIAE SERO GROUP B * Result Note: Testing performed at [place] [address] * REPORT STATUS 11/06/2024 * Result Note: FINAL * ------- ORGANISM STREPTOCOCCUS AGALACTIAE SERO GROUP B * Result Note: STREPTOCOCCUS AGALACTIAE SERO GROUP B * METHOD DARSHAN AMPICILLIN <=0.25 SUSCEPTIBLE PENICILLIN G <=0.06 SUSCEPTIBLE VANCOMYCIN 0.5 SUSCEPTIBLE LEVOFLOXACIN 1 SUSCEPTIBLE LINEZOLID <=2 SUSCEPTIBLE CEFOTAXIME <=0.12 SUSCEPTIBLE CEFTRIAXONE <=0.12 SUSCEPTIBLE INDUCIBLE CLINDAMYCIN RESISTANCE NEGATIVE Normal [facility] Comment on above: Performed By: #### A URNC #### Testing [place] [address] Testing performed at [address] [address] URINE MACROSCOPICon 11-04-19 25 Bilirubin Ql (U) Negative Normal NEGATIVE [facility] Comment on above: Performed By: #### U DARSHAN, AWETP, UMAC #### Testing [place] [address] Clarity (U) CLEAR Normal CLEAR [facility] Comment on above: Performed By: #### U DARSHAN, AWETP, UMAC #### Testing performed at [address] [address] Color (U) YELLOW Normal YELLOW [facility] Comment on above: Performed By: #### U DARSHAN, AWETP, UMAC #### Testing performed at [address] [address] Glucose Ql (U) Negative Normal NEGATIVE [facility] Comment on above: Performed By: #### U DARSHAN, AWETP, UMAC #### Testing performed at [address] [address] pH (U) 7.0 [pH] Normal 5.0-7.0 [facility] Comment on above: Performed By: #### U DARSHAN, AWETP, UMAC #### Testing performed at [address] [address] URINE HEMOGLOBIN Negative Normal NEGATIVE [facility] Comment on above: Performed By: #### U DARSHAN, AWETP, UMAC #### Testing performed at [address] [place] [address] URINE KETONE Negative Normal NEGATIVE [facility] Comment on above: Performed By: #### U DARSHAN, AWETP, UMAC #### Testing performed at [address] [place] [address] URINE LEUKOTEST SMALL Abnormal NEGATIVE [facility] Comment on above: Performed By: #### U DARSHAN, AWETP, UMAC #### Testing performed at [address] [address] URINE NITRATES Negative Normal NEGATIVE [facility] Comment on above: Performed By: #### U DARSHAN, AWETP, UMAC #### Testing performed at [address] [address] URINE SPEC GRAVITY 1.015 Normal 1.010-1.025 [facility] Comment on above: Performed By: #### U DARSHAN, AWETP, UMAC #### Testing performed at [address] [address] URINE TOTAL PROTEIN Negative Normal NEGATIVE [facility] Comment on above: Performed By: #### U DARSHAN, AWETP, UMAC #### Testing performed at [address] [address] Urobilinogen Qn (U) 0.2 {Alcon'U}/dL Normal <1.0 [facility] Comment on above: Performed By: #### U DARSHAN, AWETP, UMAC #### Testing performed at [address] [address] URINE MICROSCOPICon 11-04-19 25 Bacteria LM.HPF (Urine sed) [#/Area] Negative Normal NEGATIVE [facility] Comment on above: Performed By: #### U DARSHAN, AWETP, UMAC #### Testing performed at [address] [address] CASTS NONE Normal NONE [facility] Comment on above: Performed By: #### U DARSHAN, AWETP, UMAC #### Testing performed at [address] [address] CRYSTAL NONE Normal NONE [facility] Comment on above: Performed By: #### U DARSHAN, AWETP, UMAC #### Testing performed at [address] [address] Epithelial cells LM Ql (Urine sed) 1 TO 5 Normal [facility] Comment on above: Performed By: #### U DARSHAN, AWETP, UMAC #### Testing performed at [address] [address] Mucus Ql (Urine sed) Negative Normal NEGATIVE [facility] Comment on above: Performed By: #### U DARSHAN, AWETP, UMAC #### Testing performed at [address] [place] [address] URINE COMMENT REFLEX CULTURE PER ESTABLISHED CRITERIA. Normal [facility] Comment on above: Performed By: #### U DARSHAN, AWETP, UMAC #### Testing performed at [address] [address] URINE RBC'S Negative Normal NEGATIVE [facility] Comment on above: Performed By: #### U DARSHAN, AWETP, UMAC #### Testing performed at [address] [address] URINE WBC'S 1 TO 5 Normal NEGATIVE [facility] Comment on above: Performed By: #### U DARSHAN, AWETP, UMAC #### Testing performed at [address] [address] WET PREPon 11-03-2024 CLUE CELL Negative Normal NEGATIVE [facility] Comment on above: Performed By: #### U DARSHAN, AWETP, UMAC #### Testing performed at [address] [address] COMMENT VERIFIED BY DUP TESTING Normal A [facility] Comment on above: Performed By: #### U DARSHAN, AWETP, UMAC #### Testing performed at [address] [address] SPECIMEN DESCRIPTION URINE - OTHER Normal A [facility] Comment on above: Performed By: #### U DARSHAN, AWETP, UMAC #### Testing performed at [address] [address] TRICHOMONAS Negative Normal NEGATIVE [facility] Comment on above: Performed By: #### U DARSHAN, AWETP, UMAC #### Testing performed at [address] [address] Yeast LM Ql (Urine sed) Negative Normal NEGATIVE [facility] Comment on above: Performed By: #### U DARSHAN, AWETP, UMAC #### Testing performed at [address] [place] [address] OB ultrasound panelon 2024 OBSTETRICS REPORT (Signed Final 10/27/2024 09:52 am) PATIENT INFO: ID #: [id number] : [birth year] (19 yrs)(F) Name: ETHAN HERNANDEZ Visit Date: 10/27/2024 09:18 am MEANS PERFORMED BY: Performed By: Haylee ALEXANDER, RDMS Attending: Loyd Prado MD Referred By: Jana Sanchez MD Ref. 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 By: LMP (04/21/24) [facility]ILTON: 01/26/25 EVALUATION: Num Of Fetuses: 1 Preg. Location: Intrauterine Heart Rate(bpm): 137 Cardiac Activity: Observed Presentation: Breech Placenta: Posterior P. Cord Insertion: Marginal @ edge Amniotic Fluid JAMAAL FV: Average Largest Pocket(cm) 5.81 BIOMETRY: BPD: 66.6 mm G.Age: 26w 6d 34 % HC: 252.4 mm G.Age: 27w 3d 36 % AC: 229.7 mm G.Age: 27w 3d 52 % FL: 50.4 mm G.Age: 27w 0d 38 % HUM: 44.3 mm G.Age: 26w 2d 31 % LV: 3.8 mm CI: 70.73 % FL/HC: 20.0 % HC/AC: 1.10 FL/BPD: 75.7 % FL/AC: 21.9 % Est. FW: 1043 gm 2 lb 5 oz 47 % ANATOMY: Cranium: Visualized Cavum: Visualized Ventricles: Visualized Face: Visualized profile +NB Lips: Visualized midface Heart: 4-Chamber view visualized RVOT: Visualized LVOT: Visualized Diaphragm: Visualized Stomach: Visualized Cord Vessels: 3 vessel cord Kidneys: Visualized Bladder: Visualized TARGETED ANATOMY: Other Genitalia: NV- Prev. seen XY IMPRESSION: Follow-up Growth Summary 1. Berry intrauterine in the Breech presentation with a gestational age of 27w 0d based on the menstrual dates. The HILTON is 01/26/2025. 2. Estimated weight 1043g corresponding to 47% for 27w 0d. 3. Amniotic fluid: Average, with a single deepest pocket of 5.81cm. 4. The placenta is Posterior. Known marginal PCI again visualized today at the edge of the placenta. 5. A full anatomic study was previously performed. 6. Very active fetus. I, Loyd Prado MD, have reviewed the images associated with this study and approve this report. RECOMMENDATIONS: Thank you for asking us to see ETHAN SINGH. I personally viewed and interpreted these images and I have approved this report. A copy of this report will be sent to Jana Sanchez MD. Our ultrasound lab is accredited by The [employer] [place] [employer] ([employer]). If you would like to discuss your patient's results, please do not hesitate to contact us at [phone]. Loyd Prado MD Electronically Signed Final Report 10/27/2024 09:52 am RADIOLOGY System, Provider Not In - 10/27/2024 OBSTETRICS REPORT (Signed Final 10/27/2024 09:52 am) PATIENT INFO: ID #: [id number] : [birth year] (19 yrs)(F) Name: ETHAN HERNANDEZ Visit Date: 10/27/2024 09:18 am MEANS PERFORMED BY: Performed By: Haylee ALEXANDER, RDMS Attending: Loyd Prado MD Referred By: Jana Sanchez MD Ref. 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 By: LMP (04/21/24) HILTON: 01/26/25 EVALUATION: Num Of Fetuses: 1 Preg. Location: Intrauterine Heart Rate(bpm): 137 Cardiac Activity: Observed Presentation: Breech Placenta: Posterior P. Cord Insertion: Marginal @ edge Amniotic Fluid JAMAAL FV: Average Largest Pocket(cm) 5.81 BIOMETRY: BPD: 66.6 mm G.Age: 26w 6d 34 % HC: 252.4 mm G.Age: 27w 3d 36 % AC: 229.7 mm G.Age: 27w 3d 52 % FL: 50.4 mm G.Age: 27w 0d 38 % HUM: 44.3 mm G.Age: 26w 2d 31 % LV: 3.8 mm CI: 70.73 % FL/HC: 20.0 % HC/AC: 1.10 FL/BPD: 75.7 % FL/AC: 21.9 % Est. FW: 1043 gm 2 lb 5 oz 47 % ANATOMY: Cranium: Visualized Cavum: Visualized Ventricles: Visualized Face: Visualized profile +NB Lips: Visualized midface Heart: 4-Chamber view visualized RVOT: Visualized LVOT: Visualized Diaphragm: Visualized Stomach: Visualized Cord Vessels: 3 vessel cord Kidneys: Visualized Bladder: Visualized TARGETED ANATOMY: Other Genitalia: NV- Prev. seen XY IMPRESSION: Follow-up Growth Summary 1. Berry intrauterine in the Breech presentation with a gestational age of 27w 0d based on the menstrual dates. The HILTON is 01/26/2025. 2. Estimated weight 1043g corresponding to 47% for 27w 0d. 3. Amniotic fluid: Average, with a single deepest pocket of 5.81cm. 4. The placenta is Posterior. Known marginal PCI again visualized today at the edge of the placenta. 5. A full anatomic study was previously performed. 6. Very active fetus. I, Loyd Prado MD, have reviewed the images associated with this study and approve this report. RECOMMENDATIONS: Thank you for asking us to see ETHAN SINGH. I personally viewed and interpreted these images and I have approved this report. A copy of this report will be sent to Jana Sanchez MD. Our ultrasound lab is accredited by The [employer] [place] [employer] ([employer]). If you would like to discuss your patient's results, please do not hesitate to contact us at [phone]. Loyd Prado MD Electronically Signed Final Report 10/27/2024 09:52 am [facility] Radiology Study observation (narrative) [facility] OB ultrasound panelOrdered B y: Provider System on 10-27-2024 [facility] Cardiac echo study Procedure Ordered By: Jorge Wood on 09-29-2024 Ao ASC index 1.54 cm/m2 [facility] Work Phone: Ao peak karen 1.54 m/s [facility] Work Phone: Ao SOV index 1.66 cm/m2 [facility] Work Phone: Ao STJ index 1.36 cm/m2 [facility] Work Phone: Ao VTI 33.9 cm [facility] Work Phone: Ascending aorta 2.8 cm [facility] Work Phone: AV LVOT peak gradient 5 mmHg [facility] Work Phone: AV mean gradient 6 mmHg [facility] Work Phone: AV peak gradient 9 mmHG [facility] Work Phone: AV valve area 2.45 cm2 [facility] Work Phone: AV Velocity Ratio 0.73 [facility] Work Phone: KATHRYN (continuity Vmax) 2.28 cm2 [facility] Work Phone: KATHRYN (continuity VTI) 2.45 cm2 [facility] Work Phone: KATHRYN index (continuity Vmax) 1.25 m/s [facility] Work Phone: KATHRYN index (continuity VTI) 1.35 cm2/m2 [facility] Work Phone: Avg e' pk karen 0.17 m/s [facility] Work Phone: Avg E/e' ratio 5.2 [facility] Work Phone: Body surface area Derived from formula 1.82 m2 [facility] Work Phone: BP EF 66 % [facility] Work Phone: DI (Vmax) 0.73 [facility] Work Phone: DI (VTI) 0.78 m/2 [facility] Work Phone: E wave decelartion time 259 msec [facility] Work Phone: e' lateral pk karen 0.2 m/s [facility] Work Phone: e' septal pk karen 0.133 m/s [facility] Work Phone: e' septal pk karen 0.13 m/s [facility] Work Phone: E/A ratio 1.98 [facility] Work Phone: E/e' lateral ratio 4.15 [facility] Work Phone: E/e' septal ratio 6.24 [facility] Work Phone: EF SP 2CH 67 [facility] Work Phone: EF SP 4CH 64 [facility] Work Phone: EST RAP 3 mmHg [facility] Work Phone: FS 35 % [facility] Work Phone: IVC ostium 1.05 cm [facility] Work Phone: IVS 0.98 cm [facility] Work Phone: LA AREA 2CH 17.8 cm2 [facility] Work Phone: LA area 4CH 18.3 cm2 [facility] Work Phone: LA ESV BP (MOD) 52 mL [facility] Work Phone: LA ESV BP (MOD) index 29 mL/m2 [facility] Work Phone: LA ESV SP 2CH (MOD) [address] [facility] Work Phone: LA ESV SP 4CH (MOD) [address] [facility] Work Phone: LA size 3.3 cm [facility] Work Phone: LEFT ATRIAL DIAMETER INDEX 1.81 cm/m2 [facility] Work Phone: LV EDV BP 111 mL [facility] Work Phone: LV EDV SP 2CH 110 mL [facility] Work Phone: LV EDV SP 4CH 112 mL [facility] Work Phone: LV ESV BP 38 mL [facility] Work Phone: LV ESV SP 2CH 36 mL [facility] Work Phone: LV ESV SP 4CH 40 mL [facility] Work Phone: LV mass 168.46 g [facility] Work Phone: LV Mass Index 92.6 g/m2 [facility] Work Phone: LV RWT 0.43 [facility] Work Phone: LV stroke volume BP (ml) 73 mL [facility] Work Phone: LV stroke volume index BP 40.11 mL/m2 [facility] Work Phone: LVIDD 4.77 cm [facility] Work Phone: LVIDS 3.09 cm [facility] Work Phone: LVOT area 3.14 cm2 [facility] Work Phone: LVOT diameter 2 cm [facility] Work Phone: LVOT peak karen 1.12 m/s [facility] Work Phone: LVOT peak VTI 26.5 cm [facility] Work Phone: LVOT stroke volume 83 cm3 [facility] Work Phone: LVOT stroke volume index 45.72 ml/m2 [facility] Work Phone: MV pk A karen 0.42 m/s [facility] Work Phone: MV pk E [facility] 0.83 [facility] RATIO PRE [facility]ESS 0.78 [facility]: [facility] ECHO LV BIPLANE SYSTOLIC VOLUME INDEX 20.88 mL/m2 [facility] Work Phone: [facility] ECHO LV BP DIASTOLIC VOLUME INDEX 60.99 mL/m2 [facility] Work Phone: [facility] RVOT VTI RATIO 0.92 [facility] Work Phone: PV mean gradient 2 mmHg [facility] Work Phone: PV peak gradient 3 mmHg [facility] Work Phone: PV PK KAREN 0.93 m/s [facility] Work Phone: PV VTI 18.6 cm [facility] Work Phone: PW 1.02 cm [facility] Work Phone: RA area 4CH (MOD) 15.5 cm2 [facility] Work Phone: RA vol index 4CH (MOD) 20.88 mL/m2 [facility] Work Phone: Right atrium volume 4 chamber method of disks 38 mL [facility] Work Phone: RV Area diastolic 21 cm2 [facility] Work Phone: RV Area systolic 12.1 cm2 [facility] Work Phone: [phone] RV basal diam 3.22 cm [facility] Work Phone: RV Fractional area change 42.4 % [facility] Work Phone: RV long diam 6.98 [facility]: RV mid diam 2.79 cm [facility] Work Phone: RV S' 15.1 cm/s [facility]: RVOT peak gradient 2 mmHg [facility] [place] Work Phone: RVOT peak karen 0.75 m/s [facility] Work Phone: RVOT peak VTI 17.2 cm [facility]: Sinus 3.02 cm [facility] Work [facility]: STJ 2.47 [facility] Work [facility]: Stroke Volume 83 cm/mL [facility] Work Phone: Stroke volume index [address] [facility] Work Phone: TAPSE 2.3 [facility]: [phone] [facility] Work Phone: Cardiac echo study Procedure on 09-29-2024 Normal left ventricu lar chamber size. Normal left ventricular systolic function. Normal regional wall motion. Estimated EF 60-65%. No evidence of diastolic dysfunction. Normal right ventricular chamber size and systolic function. No hemodynamically significant valvular disease. No pericardial effusion. ' Left Ventricle Chamber size is normal. Normal wall thickness. Normal global systolic function. Regional wall motion is normal. Ejection fraction is normal (60 - 65%). Diastolic function is normal. Right Ventricle Chamber size is normal. Systolic function is normal. Fractional area change equals 42.4%. Left Atrium Chamber size is normal. Right Atrium Chamber size is normal. IVC/SVC The inferior vena cava structure is normal. Mitral Valve Normal appearing leaflets. Leaflet mobility is normal. No regurgitation. No valve stenosis. Tricuspid Valve Normal leaflets. Leaflet mobility is normal. No regurgitation. No stenosis. Aortic Valve Trileaflet valve. Leaflet mobility is normal. No regurgitation. No stenosis. Pulmonic Valve Pulmonic valve not well visualized. Trace regurgitation. No stenosis. Pericardium No pericardial effusion. Septum The atrial septum is normal. Aorta No dilation to extent seen. SOV: 3.02 cm. STJ: 2.47 cm. Ascendin.80 cm. Study Details A complete echocardiography study (including color flow Doppler, spectral Doppler and M-mode) was performed. Overall study quality was fair. Imaging system used: [employer]. Wall Scoring Score Index: 1.00 The left ventricular wall motion is normal. [facility] Radiology Study observation (narrative) [facility] ECHOCARDIOGRAMon 09-29-2024 Echocardiography Normal left ventricu lar chamber size. Normal left ventricular systolic function. Normal regional wall motion. Estimated EF 60-65%. No evidence of diastolic dysfunction. Normal right ventricular chamber size and systolic function. No hemodynamically significant valvular disease. No pericardial effusion. ' Table formatting from the original result was not included. Images from the original result were not included. 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 Normal left ventricular chamber size. Normal left ventricular systolic function. Normal regional wall motion. Estimated EF 60-65%. No evidence of diastolic dysfunction. Normal right ventricular chamber size and systolic function. No hemodynamically significant valvular disease. No pericardial effusion. ' Findings Left Ventricle Chamber size is normal. Normal wall thickness. Normal global systolic function. Regional wall motion is normal. Ejection fraction is normal (60 - 65%). Diastolic function is normal. Right Ventricle Chamber size is normal. Systolic function is normal. Fractional area change equals 42.4%. Left Atrium Chamber size is normal. Right Atrium Chamber size is normal. Septum The atrial septum is normal. Mitral Valve Normal appearing leaflets. Leaflet mobility is normal. No regurgitation. No valve stenosis. Aortic Valve Trileaflet valve. Leaflet mobility is normal. No regurgitation. No stenosis. Tricuspid Valve Normal leaflets. Leaflet mobility is normal. No regurgitation. No stenosis. Pulmonic Valve Pulmonic valve not well visualized. Trace regurgitation. No stenosis. Aorta No dilation to extent seen. SOV: 3.02 cm. STJ: 2.47 cm. Ascendin.80 cm. Pericardium No pericardial effusion. IVC/SVC The inferior vena cava structure is normal. Reading Providers Reading Role Read Date NICOL Wise Echo Julian 09/29/2024 Wall Scoring Score Index: 1.00 The left ventricular wall motion is normal. Left Heart Measurements LV - Systole LVIDD 4.77 cm IVS 0.98 cm LVIDS 3.09 cm PW 1.02 cm LV RWT 0.43 LV Mass Index 92.6 g/m2 LV EDV BP 111 mL LV ESV BP 38 mL BP EF 66 % LV stroke volume BP (ml) 73 mL LV stroke volume index BP 40.11 mL/m2 LV - Diastole MV pk E karen 0.83 m/s MV pk A karen 0.42 m/s E/A ratio 1.98 e' septal pk karen 0.13 m/s e' lateral pk karen 0.2 m/s Avg e' pk karen 0.17 m/s E/e' septal ratio 6.24 E/e' lateral ratio 4.15 Avg E/e' ratio 5.2 LV - HCM AV LVOT peak gradient 5 mmHg Left Atrium LA size 3.3 cm LA ESV SP 4CH (MOD) 55 mL LA ESV SP 2CH (MOD) 49 mL LA ESV BP (MOD) index 29 mL/m2 Right Heart Measurements RV - 2D RV basal diam 3.22 cm RV mid diam 2.79 cm RV long diam 6.98 cm RV Area diastolic 21 cm2 RV Area systolic 12.1 cm2 RV Fractional area change 42.4 % RV - Doppler TAPSE 2.3 cm RV S' 15.1 cm/s Right Atrium RA vol index 4CH (MOD) 20.88 mL/m2 EST RAP 3 mmHg RA area 4CH (MOD) 15.5 cm2 Great Vessels Aortic Root - End Diastolic Sinus 3.02 cm STJ 2.47 cm Ascending aorta 2.8 cm Inferior Vena Cava IVC ostium 1.05 cm Doppler Measurements - Aortic Valve Stenosis LVOT diameter 2 cm LVOT area 3.14 cm2 LVOT peak karen 1.12 m/s LVOT peak VTI 26.5 cm Stroke Volume 83 cm/mL Stroke volume index 46 Ao peak karen 1.54 m/s Ao VTI 33.9 cm AV peak gradient 9 mmHG AV mean gradient 6 mmHg DI (VTI) 0.78 m/2 DI (Vmax) 0.73 KATHRYN (continuity Vmax) 2.28 cm2 KATHRYN index (continuity Vmax) 1.25 m/s KATHRYN (continuity VTI) 2.45 cm2 KATHRYN index (continuity VTI) 1.35 cm2/m2 LVOT stroke volume 83 cm3 LVOT stroke volume index 45.72 ml/m2 Doppler Measurements - Mitral Valve Stenosis MV pk E karen 0.83 m/s MV pk A karen 0.42 m/s E/A ratio 1.98 PISA-MS MV pk E karen 0.83 m/s Doppler Measurements - Tricuspid Valve Stenosis IVC ostium 1.05 cm Regurgitation EST RAP 3 mmHg Doppler Measurements - Pulmonic Valve Stenosis PV PK KAREN 0.93 m/s PV VTI 18.6 cm PV peak gradient 3 mmHg PV mean gradient 2 mmHg RVOT peak karen 0.75 m/s RVOT peak VTI 17.2 cm RVOT peak gradient 2 mmHg Vitals Height Weight BSA (Calculated - sq m) BP Pulse 1.74 m (5' 8.5) 68 kg (150 lb) 1.82 m2 112/62 56 Performing Staff Melvi Sibley Study Details A complete ec (more content not included)... Normal [facility] BASIC METABOLIC PANELon 07 Anion gap [Moles/Vol] 4 mmol/L MMOL/L [facility] Calcium [Mass/Vol] 9.4 mg/dL 8.4 - 10. 2 mg/dL [facility] Chloride [Moles/Vol] 107 mmol/L [facility] Comment on above: Please note: Triglyc eride levels of 600mg/dL or higher may positively bias chloride results by approximately 2.1 mmol CO2 [Moles/Vol] 24 mmol/L [facility] Creatinine [Mass/Vol] 0.5 mg/dL Low 0.70 - 1.20 mg/dL [facility] GFR COMMENT Average GFR for 18-2 9 years old = 116. [facility] Comment on above: Chronic Kidney disea se, GFR = <60. Kidney failure, GFR = <15. The GFR estimate is not adjusted for extreme body surface area or acute process, nor has it been validated for women or ethnic groups other than and . GFR/1.73 sq M.predicted MDRD (S/P/Bld) [Vol rate/Area] 166 mL/min/{1.73_m2} ml/min/1.73sq. m [facility] Glucose post fast [Mass/Vol] 89 mg/dL [facility] Comment on above: NORMAL <100 mg/dL PREDIABETES 101-126 mg/dL DIABETES 126 mg/dL or higher Interpretation and review of laboratory results Abnormal [facility] Potassium [Moles/Vol] 3.8 mmol/L [facility] Sodium [Moles/Vol] 135 mmol/L Low [facility] Urea nitrogen [Mass/Vol] 8 mg/dL 7 - 20 mg/dL [facility] BMP FASTINGon 09-08-2024 Anion gap [Moles/Vol] 4 mmol/L Normal [facility] Comment on above: Performed By: #### B BENNY FARRAR #### Testing performed at [address] [address] Calcium [Mass/Vol] 9.4 mg/dL Normal 8.4-10.2 [facility] Comment on above: Performed By: #### B BENNY FARRAR #### Testing performed at [address] [place] [address] Chloride [Moles/Vol] 107 mmol/L Normal 98-107 [facility] Comment on above: Result Comment: Meagan geronimo note: Triglyceride levels of 600mg/dL or higher may positively bias chloride results by approximately 2.1 mmol Performed By: #### B LENI, BENNY #### Testing performed at [address] [address] CO2 [Moles/Vol] 24 mmol/L Normal 22-30 [facility] Comment on above: Performed By: #### B LENI, ACRAYMUNDO #### Testing performed at [address] [address] Creatinine [Mass/Vol] 0.50 mg/dL Low 0.70-1.20 [facility] Comment on above: Performed By: #### B LENI, BENNY #### Testing performed at [address] [address] GFR Information Average GFR for 18-2 9 years old = 116. Normal [facility] Comment on above: Result Comment: [employer] travon Kidney disease, GFR = <60. Kidney failure, GFR = <15. The GFR estimate is not adjusted for extreme body surface area or acute process, nor has it been validated for women or ethnic groups other than and . Performed By: #### B LENI, BENNY #### Testing performed at [address] [address] GFR/1.73 sq M.predicted MDRD (S/P/Bld) [Vol rate/Area] 166 mL/min/{1.73_m2} Normal [facility] Comment on above: Performed By: #### B LENI, ACRAYMUNDO #### Testing performed at [address] [address] Glucose [Mass/Vol] 89 mg/dL Normal 70-100 [facility] Comment on above: Result Comment: NORMAL <100 mg/dL PREDIABETES 101-126 mg/dL DIABETES 126 mg/dL or higher Performed By: #### B LENI, ACBC #### Testing performed at [address] [address] Potassium [Moles/Vol] 3.8 mmol/L Normal 3.5-5.1 [facility] Comment on above: Performed By: #### B MPF, ACBC #### Testing performed at [address] [address] Sodium [Moles/Vol] 135 mmol/L Low 137-145 [facility] Comment on above: Performed By: #### B MPF, ACBC #### Testing performed at [address] [address] Urea nitrogen [Mass/Vol] 8 mg/dL Normal 7-20 [facility] Comment on above: Performed By: #### B MPF, ACBC #### Testing performed at [address] [address] CBCon 09-08-2024 ABSOLUTE BAS 0.0 10*3/uL Normal 0.0-0.2 [facility] Comment on above: Performed By: #### B MPF, ACBC #### Testing performed at [address] [address] ABSOLUTE EOS 0.0 10*3/uL Normal 0.0-0.7 [facility] Comment on above: Performed By: #### B MPF, ACBC #### Testing performed at [address] [address] ABSOLUTE NEUTROPHIL COUNT 5.1 10*3/uL Normal 1.4-6.5 [facility] Comment on above: Performed By: #### B MPF, ACBC #### Testing performed at [address] [address] Basophils/100 WBC (Bld) 0.5 % Normal 0.0-2.0 [facility] Comment on above: Performed By: #### B MPF, ACBC #### Testing performed at [address] [address] DTYPE AUTO DIFF Normal [facility] Comment on above: Performed By: #### B MPF, ACBC #### Testing performed at [address] [address] Eosinophils/100 WBC (Bld) 0.4 % Normal 0.0-11.0 [facility] Comment on above: Performed By: #### B MPF, ACBC #### Testing performed at [address] [address] Lymphocytes (Bld) [#/Vol] 1.0 10*3/uL Low 1.2-3.4 [facility] Comment on above: Performed By: #### B MPF, ACBC #### Testing performed at [address] [address] Lymphocytes/100 WBC (Bld) 15.9 % Low 20.0-55.0 [facility] Comment on above: Performed By: #### B MPF, ACBC #### Testing performed at [address] [address] Monocytes (Bld) [#/Vol] 0.4 10*3/uL Normal 0.0-0.7 [facility] Comment on above: Performed By: #### B MPF, ACBC #### Testing performed at [address] [address] Monocytes/100 WBC (Bld) 6.0 % Normal 0.0-10.0 [facility] Comment on above: Performed By: #### B MPF, ACBC #### Testing performed at [address] [address] Neutrophils/100 WBC (Bld) 77.2 % High 37.0-75.0 [facility] Comment on above: Performed By: #### B MPF, ACBC #### Testing performed at [address] [address] Erythrocyte distribution width (RBC) [Ratio] 14.0 % Normal 11.5-14.5 [facility] Comment on above: Performed By: #### B MPF, ACBC #### Testing performed at [address] [address] Hematocrit (Bld) [Volume fraction] 33.7 % Low 36.0-48.0 [facility] Comment on above: Performed By: #### B MPF, ACBC #### Testing performed at [address] [address] Hemoglobin (Bld) [Mass/Vol] 12.1 g/dL Normal 12.0-16.0 [facility] Comment on above: Performed By: #### B MPF, ACBC #### Testing performed at [address] [address] MCH (RBC) [Entitic mass] 33.1 pg Normal 26.0-35.0 [facility] Comment on above: Performed By: #### B MPF, ACBC #### Testing performed at [address] [address] MCHC (RBC) [Mass/Vol] 36.0 g/dL Normal 27.0-37.0 [facility] Comment on above: Performed By: #### B MPF, ACBC #### Testing performed at [address] [address] MCV (RBC) [Entitic vol] 92.0 fL Normal 80.0-100.0 [facility] Comment on above: Performed By: #### B MPF, ACBC #### Testing performed at [address] [address] Platelet mean volume (Bld) [Entitic vol] 7.6 fL Normal 7.4-11.0 [facility] Comment on above: Performed By: #### B MPF, ACBC #### Testing performed at [address] [address] Platelets (Bld) [#/Vol] 256 10*3/uL Normal 130-400 [facility] Comment on above: Performed By: #### B MPF, ACBC #### Testing performed at [address] [address] RBC (Bld) [#/Vol] 3.66 10*6/uL Low 4.0-5.4 [facility] Comment on above: Performed By: #### B MPF, ACBC #### Testing performed at [address] [address] WBC (Bld) [#/Vol] 6.6 10*3/uL Normal 3.6-11.0 [facility] Comment on above: Performed By: #### B MPF, ACBC #### Testing performed at [address] [address] CBC, EDIF, PLATELETon 2024 ABSOLUTE BASOPHIL COUNT 0 10*3/uL 0.0 - 0.2 10*3/uL [facility] Basophils/100 WBC (Bld) 0.5 % 0.0 - 2.0 % [facility] Differential cell count method Nom (Bld) AUTO DIFF % [facility] Eosinophils (Bld) [#/Vol] 0 10*3/uL 0.0 - 0.7 10*3/uL [facility] Eosinophils/100 WBC (Bld) 0.4 % 0.0 - 11.0 % [facility] Erythrocyte distribution width (RBC) [Ratio] 14 % 11.5 - 14.5 % [facility] Hematocrit (Bld) [Volume fraction] 33.7 % Low 36.0 - 48.0 % [facility] Hemoglobin (Bld) [Mass/Vol] 12.1 g/dL [facility] Interpretation and review of laboratory results Abnormal [facility] Lymphocytes (Bld) [#/Vol] 1 10*3/uL Low 1.2 - 3.4 10*3/uL [facility] Lymphocytes/100 WBC (Bld) 15.9 % Low 20.0 - 55.0 % [facility] MCH (RBC) [Entitic mass] 33.1 pg 26.0 - 35.0 PG [facility] MCHC (RBC) [Mass/Vol] 36 g/dL [facility] MCV (RBC) [Entitic vol] 92 fL [facility] Monocytes (Bld) [#/Vol] 0.4 10*3/uL 0.0 - 0.7 10*3/uL [facility] Monocytes/100 WBC (Bld) 6 % 0.0 - 10.0 % [facility] Neutrophils (Bld) [#/Vol] 5.1 10*3/uL 1.4 - 6.5 10*3/uL [facility] Neutrophils/100 WBC (Bld) 77.2 % High 37.0 - 75.0 % [facility] Platelet mean volume (Bld) [Entitic vol] 7.6 fL [facility] Platelets (Bld) [#/Vol] 256 10*3/uL 130 - 400 10*3/uL [facility] RBC (Bld) [#/Vol] 3.66 10*6/uL Low 4.0 - 5.4 10*6/uL [facility] WBC (Bld) [#/Vol] 6.6 10*3/uL 3.6 - 11.0 10*3/uL [facility] TSHon 09-08-2024 TSH Qn 0.857 m[IU]/L [facility] TSH 0.857 uIU/ML Normal 0.465-4.680 [facility] Comment on above: Performed By: #### T SH2 #### Testing performed at [address] [address] URINALYSIS, MACROon 09-09-19 25 Bilirubin Ql (U) Negative NEGATIVE [facility] Clarity (U) CLEAR CLEAR [facility] Color (U) YELLOW YELLOW [facility] Glucose Test strip (U) [Mass/Vol] Negative NEGATIVE mg/dl [facility] Hemoglobin Ql (U) Negative NEGATIVE [facility] Ketones (U) [Mass/Vol] Negative NEGATIVE mg/dl [facility] Leukocyte esterase Test strip Ql (U) Negative NEGATIVE [facility] Nitrite Ql (U) Negative NEGATIVE [facility] pH (U) 6.5 [pH] 5.0 - 7.0 [facility] Protein Ql (U) Negative NEGATIVE mg/dl [facility] Specific gravity (U) [Rel density] 1.02 1.010 - 1.025 [facility] Urobilinogen (U) [Mass/Vol] 0.2 mg/dL [facility] URINE MACROSCOPICon 09-09-19 25 Bilirubin Ql (U) Negative Normal NEGATIVE [facility] Comment on above: Performed By: #### U MAC #### Testing performed at [address] [place] [address] Clarity (U) CLEAR Normal CLEAR [facility] Comment on above: Performed By: #### U MAC #### Testing performed at [address] [address] Color (U) YELLOW Normal YELLOW [facility] Comment on above: Performed By: #### U MAC #### Testing performed at [address] [address] Glucose Ql (U) Negative Normal NEGATIVE [facility] Comment on above: Performed By: #### U MAC #### Testing performed at [address] [address] pH (U) 6.5 [pH] Normal 5.0-7.0 [facility] Comment on above: Performed By: #### U MAC #### Testing performed at [address] [address] URINE HEMOGLOBIN Negative Normal NEGATIVE [facility] Comment on above: Performed By: #### U MAC #### Testing performed at [address] [place] [address] URINE KETONE Negative Normal NEGATIVE [facility] Comment on above: Performed By: #### U MAC #### Testing performed at [address] [address] URINE LEUKOTEST Negative Normal NEGATIVE [facility] Comment on above: Performed By: #### U MAC #### Testing performed at [address] [address] URINE NITRATES Negative Normal NEGATIVE [facility] Comment on above: Performed By: #### U MAC #### Testing performed at [address] [address] URINE SPEC GRAVITY 1.020 Normal 1.010-1.025 [facility] Comment on above: Performed By: #### U MAC #### Testing performed at [address] [address] URINE TOTAL PROTEIN Negative Normal NEGATIVE [facility] Comment on above: Performed By: #### U MAC #### Testing performed at [address] [place] [address] Urobilinogen Qn (U) 0.2 {Alcon'U}/dL Normal 0.2-1.0 [facility] Comment on above: Performed By: #### U MAC #### Testing performed at [address] [place] [address] OB ultrasound panelon 2024 OBSTETRICS REPORT (Signed Final 09/01/2024 01:42 pm) PATIENT INFO: ID #: [id number] : [birth year] (19 yrs)(F) Name: ETHAN HERNANDEZ Visit Date: 09/01/2024 01:29 pm MEANS PERFORMED BY: Performed By: CATHERINE Martinez, RDMS, RVT Attending: Loyd Prado MD Referred By: Jana Sanchez MD Ref. Address: [address] [place] [address], [place] [address] Location: [place] SERVICE(S) PROVIDED: Detailed [address] [facility] Transvaginal [address] INDICATIONS: Encounter for anatomic survey Z36 Screening, for risk of pre-term gcxiyP64 cffDna done- EDVIN Maternal Yola-Danlos syndrome Q79.6 OB HISTORY: : 1 GESTATIONAL AGE: LMP: 19w 0d Date: 04/21/24 HILTON: 01/26/25 U/S Today: 6d HILTON: 01/20/25 Best: 19w 0d Det. By: LMP (04/21/24) HILTON: 01/26/25 CERVIX UTERUS ADNEXA: Cervix Length: 3.38 cm. No change with pressure. Uterus No abnormalities visualized Right Ovary Size(cm) 2.77 x 2.25 x 1.45 Vol(ml): 4.73 Normal in size and appearance Left Ovary Size(cm) 2.43 x 2.18 x 1.08 Vol(ml): 3 Normal in size and appearance EVALUATION: Num Of Fetuses: 1 Preg. Location: Intrauterine Heart Rate(bpm): 148 Cardiac Activity: Observed Presentation: Cephalic Placenta: Posterior P. Cord Insertion: Marginal; at edge Amniotic Fluid JAMAAL FV: Average Largest Pocket(cm) 5.49 BIOMETRY: BPD: 46.9 mm G.Age: 20w 1d 90 % HC: 171.3 mm G.Age: 19w 5d 76 % AC: 157.4 mm G.Age: 20w 6d 93 % FL: 28.1 mm G.Age: 18w 4d 30 % HUM: 29.8 mm G.Age: 19w 6d 70 % CER: 19.9 mm G.Age: 19w 2d 49 % NFT: 4.2 mm LV: 7 mm CM: 3.7 mm OOD: 31.6 mm G.Age: 19w 1d 62 % ULN: 26.4 mm G.Age: 19w 4d 55 % TIB: 23.4 mm G.Age: 18w 2d 32 % RAD: 22.8 mm G.Age: 18w 3d 37 % FIB: 23.6 mm G.Age: 18w 1d 47 % Foot: 29.5 mm G.Age: 19w 2d 49 % CI: 75.39 % FL/HC: 16.4 % HC/AC: 1.09 FL/BPD: 59.9 % FL/AC: 17.9 % Est. FW: 316 gm 0 lb 11 oz 87 % TARGETED ANATOMY: Central Nervous System Calvarium/Cranial V.: Visualized Intracranial Russel: Visualized Cavum: Visualized Choroid Plexus: Visualized Cereb./Vermis: Visualized Midline Falx: Visualized Spine Cervical: Visualized Thoracic: Visualized Lumbar: Visualized Sacral: Visualized Head/Neck Lips: Visualized midface Palate: PMT visualized Profile: Visualized +NB Orbits/Eyes: Visualized lenses Thorax Lungs: Visualized 4 Chamber View: Visualized Cardiac Activity: Normal Cardiac Rhythm: Normal Cardiac Situs: Normal Rt Outflow Tract: Visualized Lt Outflow Tract: Visualized Aortic Arch: Visualized Ductal Arch: Visualized SVC: Visualized Cardiac Preston: Normal Diaphragm: Visualized LT and RT 3 Vessel View: Visualized 3 V Trachea View: Visualized IVC: Visualized Crossing: Visualized Abdomen Ventral Wall: Visualized Cord Insertion: Visualized Situs: Normal Stomach: Visualized Lt Kidney: Visualized Rt Kidney: Visualized Bladder: Visualized (more content not included)... RADIOLOGY System, Provider Not In - 09/01/2024 OBSTETRICS REPORT (Signed Final 09/01/2024 01:42 pm) PATIENT INFO: ID #: [id number] : [birth year] (19 yrs)(F) Name: ETHAN HERNANDEZ Visit Date: 09/01/2024 01:29 pm MEANS PERFORMED BY: Performed By: CATHERINE Martinez, RDMS, RVT Attending: Loyd Prado MD Referred By: Jana Sanchez MD Ref. Address: [address] [place] [id number] Location: [place] SERVICE(S) PROVIDED: Detailed [address] [facility] Transvaginal [address] INDICATIONS: Encounter for anatomic survey Z36 Screening, for risk of pre-term lotpaT58 cffDna done- EDVIN Maternal Yola-Danlos syndrome Q79.6 OB HISTORY: : 1 GESTATIONAL AGE: LMP: 19w 0d Date: 04/21/24 HILTON: 01/26/25 U/S Today: 19w 6d HILTON: 01/20/25 Best: 19w 0d Det. By: LMP (04/21/24) HILTON: 01/26/25 CERVIX UTERUS ADNEXA: Cervix Length: 3.38 cm. No change with pressure. Uterus No abnormalities visualized Right Ovary Size(cm) 2.77 x 2.25 x 1.45 Vol(ml): 4.73 Normal in size and appearance Left Ovary Size(cm) 2.43 x 2.18 x 1.08 Vol(ml): 3 Normal in size and appearance EVALUATION: Num Of Fetuses: 1 Preg. Location: Intrauterine Heart Rate(bpm): 148 Cardiac Activity: Observed Presentation: Cephalic Placenta: Posterior P. Cord Insertion: Marginal; at edge Amniotic Fluid JAMAAL FV: Average Largest Pocket(cm) 5.49 BIOMETRY: BPD: 46.9 mm G.Age: 20w 1d 90 % HC: 171.3 mm G.Age: 19w 5d 76 % AC: 157.4 mm G.Age: 20w 6d 93 % FL: 28.1 mm G.Age: 18w 4d 30 % HUM: 29.8 mm G.Age: 19w 6d 70 % CER: 19.9 mm G.Age: 19w 2d 49 % NFT: 4.2 mm LV: 7 mm CM: 3.7 mm OOD: 31.6 mm G.Age: 19w 1d 62 % ULN: 26.4 mm G.Age: 19w 4d 55 % TIB: 23.4 mm G.Age: 18w 2d 32 % RAD: 22.8 mm G.Age: 18w 3d 37 % FIB: 23.6 mm G.Age: 18w 1d 47 % Foot: 29.5 mm G.Age: 19w 2d 49 % CI: 75.39 % FL/HC: 16.4 % HC/AC: 1.09 FL/BPD: 59.9 % FL/AC: 17.9 % Est. FW: 316 gm 0 lb 11 oz 87 % TARGETED ANATOMY: Central Nervous System Calvarium/Cranial V.: Visualized Intracranial Russel: Visualized Cavum: Visualized Choroid Plexus: Visualized Cereb./Vermis: Visualized Midline Falx: Visualized Spine Cervical: Visualized Thoracic: Visualized Lumbar: Visualized Sacral: Visualized Head/Neck Lips: Visualized midface Palate: PMT visualized Profile: Visualized +NB Orbits/Eyes: Visualized lenses Thorax Lungs: Visualized 4 Chamber View: Visualized Cardiac Activity: Normal Cardiac Rhythm: Normal Cardiac Situs: Normal Rt Outflow Tract: Visualized Lt Outflow Tract: Visualized Aortic Arch: Visualized Ductal Arch: Visualized SVC: Visualized Cardiac Preston: Normal Diaphragm: Visualized LT and RT 3 Vessel View: Visualized 3 V Trachea View: Visualized IVC: Visualized Crossing: Visualized Abdomen Ventral Wall: Visualized Cord Insertion: Visualized Situs: Normal Stomach: Visualized Lt Kidney: Visualized Rt Kidney: Visualized Bladder: Visualized Bowel: Visualized Extremities Lt Humerus: Visualized Rt Humerus: Visualized Lt Forearm: Visualized Rt Forearm: Visualized Lt Hand: Open Rt Hand: Open Lt Femur: Visualized Rt Femur: Visualized Lt Lower Leg: Visualized Rt Lower Leg: Visualized Lt Foot: Visualized Rt Foot: Visualized Other Umbilical Cord: 3-vessel Genitalia: Male Comment: Bilateral renal arteries visualized IMPRESSION: 2nd Trimester Detailed Summary 1. Berry intrauterine in the Cephalic presentation with a gestational age of 19w 0d based on the menstrual dates. The HILTON is 01/26/2025. 2. Estimated weight 316g corresponding to 87% for 19w 0d. 3. Amniotic fluid: Average, with a single deepest pocket of 5.49cm. 4. The placenta is Posterior. The PCI is Marginal; at edge. 5. Level II survey shows no malformations to the extent of visualization. Cervical Length Transvaginal ultrasound demonstrates a cervical length measurement of 3.38cm. No change with pressure. I, Phi (more content not included)... [facility] Radiology Study observation (narrative) [facility] OB ultrasound panelOrdered B y: Provider System on 09-01-2024 [facility] ABO/RH(D)on 07-08-2024 ABO/RH(D) ABO/RH(D) O POSITIVE Testing performed at [place] [address] Normal [facility] Comment on above: Performed By: #### A BRH #### [place] [address] ANTIBODY SCREENon 07-08-2024 Antibody screen ANTIBODY SCREEN NEGA TIVE WORKUP EXPIRES 07/10/2024,2359 Testing performed at [address] Comment on above: Performed By: #### R ESCRN #### [place] [address] FAX REQUESTon 07-07-2024 FAX TO [facility] Comment on above: Result Comment: Test ing performed at [place] [address] Performed By: #### F X #### [place] [address] HCG ( test) Ql (U)o n 05-26-2024 [facility] POCT INFLUENZA, A Bon 2024 FLUAV RNA GISSELLE+probe Ql (Unsp spec) Negative Negative, Not Tested, Invalid, Not Detected [facility] FLUBV RNA GISSELLE+probe Ql (Unsp spec) Negative Negative, Not Tested, Invalid, Not Detected [facility] Interpretation and review of laboratory results Normal [facility] POCT URINE PREGNANCYon 05-26 HCG ( test) Ql (U) Positive [facility] SARS-COV-2 RAPID AG (WIC)on 05-26-2024 SARS-CoV-2 (COVID-19) RNA GISSELLE+probe Ql (Unsp spec) Not detected Normal NOT DETECTED [facility] Comment on above: Result Comment: Nega tive results should be treated as presumptive and confirmation with a molecular assay, if necessary, for patient management, may be performed. Negative results do not rule out SARSCoV-2 infection and should not be used as the sole basis for treatment or patient management decisions, including infection control decisions. Negative results should be considered in the context of a patient's recent exposures, history and the presence of clinical signs and symptoms consistent with COVID-19. Performed By: #### C COVAG #### Testing performed at [facility] [address] [facility] [address] NARRATIVE This test was perfor med using lateral flow immunoassay. This test does not differentiate between SARS-CoV and SARS-CoV2. Normal [facility] Comment on above: Performed By: #### C COVAG #### Testing performed at [facility] [address] [place] [address] SARS-COV-2 RAPID ANTIGEN (CL INIC ONLY)on 05-26-2024 SARS-CoV-2 (COVID-19) RNA GISSELLE+probe Ql (Unsp spec) This test was performed using lateral flow immunoassay. This test does not differentiate between SARS-CoV and SARS-CoV2. [facility] SARS-CoV-2 (COVID-19) RNA NA A+probe Ql (Unsp spec)on 05-26-2024 SARS-CoV-2 (COVID-19) Ag IA.rapid Ql (Resp) Not detected NOT DETECTED [facility] Comment on above: Negative results sita uld be treated as presumptive and confirmation with a molecular assay, if necessary, for patient management, may be performed. Negative results do not rule out SARSCoV-2 infection and should not be used as the sole basis for treatment or patient management decisions, including infection control decisions. Negative results should be considered in the context of a patient's recent exposures, history and the presence of clinical signs and symptoms consistent with COVID-19. [facility] QUANTIFERON TB GOLD PLUS 1 T UBEon 05-20-2024 QUANTIFERNON INCUBATION Incubation performed. Normal [facility] Comment on above: Performed By: #### L BRITTANY ELLIOTT, JANETH #### Testing performed at [facility] [address] [facility] [place] [address] [place] [address] QUANTIFERON-TB GOLD PLUS Negative Normal [facility] Comment on above: Result Comment: Refe rence range: Negative (NOTE) No response to M tuberculosis antigens detected. Infection with M tuberculosis is unlikely, but high risk individuals should be considered for additional testing (ATS/IDSA/CDC Clinical Practice Guidelines, 2017). The reference range is an Antigen minus Nil result of <0.35 IU/mL. Chemiluminescence immunoassay methodology PERFORMED AT [facility] Performed By: #### L QFIT, LMMR, ZQFIT #### Testing performed at [address] [address] RFLX QUANTIFERON-TB GOLD PLU Son 05-20-2024 QUANTIFERON CRITERIA Comment [facility] Comment on above: Result Comment: (NOT E) QuantiFERON-TB Gold Plus is a qualitative indirect test for M tuberculosis infection (including disease) and is intended for use in conjunction with risk assessment, radiography, and other medical and diagnostic evaluations. The QuantiFERON-TB Gold Plus result is determined by subtracting the Nil value from either TB antigen (Ag) value. The Mitogen tube serves as a control for the test. Performed By: #### L QFIT, LMMR, ZQFIT #### [place] [address] QUANTIFERON MITOGEN VALUE >10.00 [facility] Comment on above: Result Comment: Unit : IU/mL PERFORMED AT [facility] Performed By: #### L QFIT, LMMR, ZQFIT #### Testing performed at [address] [address] QUANTIFERON NIL VALUE 0.02 [facility] Comment on above: Result Comment: Unit : IU/mL Performed By: #### L QFIT, LMMR, ZQFIT #### Testing performed at [address] [address] QUANTIFERON TB1 AG VALUE 0.01 [facility] Comment on above: Result Comment: Unit : IU/mL Performed By: #### L QFIT, LMMR, ZQFIT #### Testing performed at [address] [address] QUANTIFERON TB2 AG VALUE 0.03 [facility] Comment on above: Result Comment: Unit : IU/mL Performed By: #### L QFIT, LMMR, ZQFIT #### Testing performed at [address] [address] MEASLES,MUMP,RUBELLAon 05-19 MUMPS ABS, IGG 80.5 Normal [facility] Comment on above: Result Comment: Refe rence range: Immune >10.9 Unit: AU/mL (NOTE) Negative <9.0 Equivocal 9.0 - 10.9 Positive >10.9 A positive result generally indicates past exposure to Mumps virus or previous vaccination. PERFORMED AT [facility] Performed By: #### L QFIT, LMMR, ZQFIT #### Testing performed at [facility] [address] [place], [place] [address] [place] [address] RUBELLA AB, IGG 6.89 Normal [facility] Comment on above: Result Comment: Refe rence range: Immune >0.99 Unit: index (NOTE) Non-immune <0.90 Equivocal 0.90 - 0.99 Immune >0.99 Performed By: #### L QFIT, LMMR, ZQFIT #### Testing performed at [facility] [address] [place] [address] [place] [address] RUBEOLA AB, IGG >300.0 Normal [facility] Comment on above: Result Comment: Refe rence range: Immune >16.4 Unit: AU/mL (NOTE) Negative <13.5 Equivocal 13.5 - 16.4 Positive >16.4 Presence of antibodies to Rubeola is presumptive evidence of immunity except when acute infection is suspected. Performed By: #### L QFIT, LMMR, ZQFIT #### Testing performed at [facility] [address] [place] [address] [place] [address] HEP B SURFACE [facility] HEP B SURFACE AB Indeterminate Abnormal NEGATIVE [facility] Comment on above: Result Comment: Clinical Interpretation of Immune Status Negative: patient is considered to be not immune to infection with HBV Intermediate: unable to determine if anti-HBs is present at levels consistent with immunity Positive: anti-HBs detected, patient is considered to be immune to infection with HBV HEP C ABon 05-18-2024 HEP C AB Negative Normal NEGATIVE [facility] POCT INFLUENZA, A Bon 2024 FLUAV RNA GISSELLE+probe Ql (Unsp spec) Negative Negative, Not Tested, Invalid, Not Detected [facility] FLUBV RNA GISSELLE+probe Ql (Unsp spec) Negative Negative, Not Tested, Invalid, Not Detected [facility] Internal controls [place] [facility] SARS-COV-2 RAPID AG (WIC)on 04-19-2024 SARS-CoV-2 (COVID-19) RNA GISSELLE+probe Ql (Unsp spec) Not detected Normal NOT DETECTED [facility] Comment on above: Result Comment: Nega tive results should be treated as presumptive and confirmation with a molecular assay, if necessary, for patient management, may be performed. Negative results do not rule out SARSCoV-2 infection and should not be used as the sole basis for treatment or patient management decisions, including infection control decisions. Negative results should be considered in the context of a patient's recent exposures, history and the presence of clinical signs and symptoms consistent with COVID-19. Performed By: #### C COVAG #### [place] [address] NARRATIVE This test was perfor med using lateral flow immunoassay. This test does not differentiate between SARS-CoV and SARS-CoV2. Normal [facility] Comment on above: Performed By: #### C COVAG #### [place] [address] SARS-COV-2 RAPID ANTIGEN (CL INIC ONLY)on 04-19-2024 SARS-CoV-2 (COVID-19) RNA GISSELLE+probe Ql (Unsp spec) This test was performed using lateral flow immunoassay. This test does not differentiate between SARS-CoV and SARS-CoV2. [facility] SARS-CoV-2 (COVID-19) RNA NA A+probe Ql (Unsp spec)on 04-19-2024 SARS-CoV-2 (COVID-19) Ag IA.rapid Ql (Resp) Not detected NOT DETECTED [facility] Comment on above: Negative results sita uld be treated as presumptive and confirmation with a molecular assay, if necessary, for patient management, may be performed. Negative results do not rule out SARSCoV-2 infection and should not be used as the sole basis for treatment or patient management decisions, including infection control decisions. Negative results should be considered in the context of a patient's recent exposures, history and the presence of clinical signs and symptoms consistent with COVID-19. [facility] Portable XR Chest Viewson IMPRESSION: Nonacute portable chest. RADIOLOGY EXAM: XR CHEST 1 VIE W PORTABLE HISTORY: cp COMPARISON: Two-view chest from 01/04/2022. TECHNIQUE: Portable chest done at 10:03 PM. FINDINGS: Trachea, mediastinum and heart size are unremarkable. No infiltrate or nodule or effusion or pneumothorax is noted. Diaphragm and bony elements are intact. RADIOLOGY Jeremy Jeronimo, DO - 11/28/2023 EXAM: XR CHEST 1 VIEW PORTABLE HISTORY: cp COMPARISON: Two-view chest from 01/04/2022. TECHNIQUE: Portable chest done at 10:03 PM. FINDINGS: Trachea, mediastinum and heart size are unremarkable. No infiltrate or nodule or effusion or pneumothorax is noted. Diaphragm and bony elements are intact. IMPRESSION IMPRESSION: Nonacute portable chest. [facility] Radiology Study observation (narrative) [facility] Portable XR Chest ViewsOrder ed By: Jeremy Jeronimo on 11-28-2023 [facility] Work Phone: XR CHEST 1 VIEW PORTABLEon 0 11-28-2023 XR CHEST 1 VIEW PORTABLE EXAM: XR CHEST 1 VIEW PORTABLE HISTORY: cp COMPARISON: Two-view chest from 01/04/2022. TECHNIQUE: Portable chest done at 10:03 PM. FINDINGS: Trachea, mediastinum and heart size are unremarkable. No infiltrate or nodule or effusion or pneumothorax is noted. Diaphragm and bony elements are intact. IMPRESSION: Nonacute portable chest. Normal [facility] HCG ( test) Ql (U)o n 09-15-2023 [facility] HCG QUALITATIVE, URINEon HCG ( test) Ql (U) Negative NEGATIVE [facility] No Panel Informationon 09-14 Interpretation and review of laboratory results Abnormal [facility] URINALYSIS, MACROon 09-15-19 Bilirubin Ql (U) Negative NEGATIVE [facility] Clarity (U) CLEAR CLEAR [facility] Color (U) YELLOW YELLOW [facility] Glucose Test strip (U) [Mass/Vol] Negative NEGATIVE mg/dl [facility] Hemoglobin Ql (U) LARGE Abnormal NEGATIVE [facility] Ketones (U) [Mass/Vol] Negative NEGATIVE mg/dl [facility] Leukocyte esterase Test strip Ql (U) TRACE Abnormal NEGATIVE [facility] Nitrite Ql (U) Negative NEGATIVE [facility] pH (U) 5.5 [pH] 5.0 - 7.0 [facility] Protein Ql (U) Negative NEGATIVE mg/dl [facility] Specific gravity (U) [Rel density] 1.025 1.010 - 1.025 [facility] Urobilinogen (U) [Mass/Vol] 0.2 mg/dL [facility] URINE MICROSCOPICon 09-15-19 24 Bacteria LM.HPF (Urine sed) [#/Area] TRACE Abnormal NEGATIVE [facility] Casts LM.LPF (Urine sed) [#/Area] NONE NONE /LPF [facility] Crystals LM Nom (Urine sed) NONE NONE [facility] Epithelial cells LM Ql (Urine sed) 1 TO 5 /HPF [facility] Mucus Ql (Urine sed) Negative NEGATIVE [facility] RBC LM.HPF (Urine sed) [#/Area] TOO NUMEROUS TO COUNT Abnormal NEGATIVE /HPF [facility] Urine sediment comments LM Surinder (Urine sed) REFLEX CULTURE PER ESTABLISHED CRITERIA. [facility] WBC LM.HPF (Urine sed) [#/Area] Negative NEGATIVE /HPF [facility] BETA HCG, QUAL, BLOODon 07-03 HCG ( test) Ql Negative [facility] C REACTIVE PROTEINon 024 CRP [Mass/Vol] 5.2 mg/L 0 - 10 MG/L [facility] CBC, EDIF, PLATELETon 2023 ABSOLUTE BASOPHIL COUNT 0.0 10*3/uL 0.0 - 0.2 10*3/uL [facility] Basophils/100 WBC (Bld) 0.9 % 0.0 - 2.0 % [facility] Differential cell count method Nom (Bld) AUTO DIFF % [facility] Eosinophils (Bld) [#/Vol] 0.0 10*3/uL 0.0 - 0.7 10*3/uL [facility] Eosinophils/100 WBC (Bld) 1.0 % 0.0 - 11.0 % [facility] Erythrocyte distribution width (RBC) [Ratio] 13.2 % 11.5 - 14.5 % [facility] Hematocrit (Bld) [Volume fraction] 35.5 % Low 36.0 - 48.0 % [facility] Hemoglobin (Bld) [Mass/Vol] 12.2 g/dL [facility] Interpretation and review of laboratory results Abnormal [facility] Lymphocytes (Bld) [#/Vol] 1.1 10*3/uL Low 1.2 - 3.4 10*3/uL [facility] Lymphocytes/100 WBC (Bld) 30.0 % 20.0 - 55.0 % [facility] MCH (RBC) [Entitic mass] 31.0 pg 26.0 - 35.0 PG [facility] MCHC (RBC) [Mass/Vol] 34.4 g/dL [facility] MCV (RBC) [Entitic vol] 90.1 fL [facility] Monocytes (Bld) [#/Vol] 0.2 10*3/uL 0.0 - 0.7 10*3/uL [facility] Monocytes/100 WBC (Bld) 6.7 % 0.0 - 10.0 % [facility] Neutrophils (Bld) [#/Vol] 2.3 10*3/uL 1.4 - 6.5 10*3/uL [facility] Neutrophils/100 WBC (Bld) 61.4 % 37.0 - 75.0 % [facility] Platelet mean volume (Bld) [Entitic vol] 7.0 fL Low [facility] Platelets (Bld) [#/Vol] 249 10*3/uL 130 - 400 10*3/uL [facility] RBC (Bld) [#/Vol] 3.94 10*6/uL Low 4.0 - 5.4 10*6/uL [facility] WBC (Bld) [#/Vol] 3.7 10*3/uL 3.6 - 11.0 10*3/uL [facility] COMPREHENSIVE METABOLIC PANE Jaron 07-23-2023 Albumin [Mass/Vol] 4.3 G/dl 3.5 - 5.0 G/dl [facility] Albumin/Globulin [Mass ratio] 1.7 {ratio} RATIO [facility] ALP [Catalytic activity/Vol] 79 U/L [facility] ALT [Catalytic activity/Vol] 57 U/L High NINF [facility] AST [Catalytic activity/Vol] 66 U/L High [facility] Bilirubin [Mass/Vol] 0.6 mg/dL [facility] Calcium [Mass/Vol] 9.1 mg/dL [facility] Chloride [Moles/Vol] 108 mmol/L High [facility] Comment on above: Please note: Triglyc eride levels of 600mg/dL or higher may positively bias chloride results by approximately 2.1 mmol CO2 [Moles/Vol] 23 mmol/L [facility] Creatinine [Mass/Vol] 0.66 mg/dL Low [facility] GFR COMMENT Average GFR for 20-2 9 years old = 116. [facility] Comment on above: Chronic Kidney disea se, GFR = <60. Kidney failure, GFR = <15. The GFR estimate is not adjusted for extreme body surface area or acute process, nor has it been validated for women or ethnic groups other than and . GFR/1.73 sq M.predicted among blacks MDRD (S/P/Bld) [Vol rate/Area] 145 mL/min/{1.73_m2} ml/min/1.73sq. m [facility] GFR/1.73 sq M.predicted among non-blacks MDRD (S/P/Bld) [Vol rate/Area] 120 mL/min/{1.73_m2} ml/min/1.73sq. m [facility] Glucose post fast [Mass/Vol] 94 mg/dL [facility] Comment on above: NORMAL <100 mg/dL PREDIABETES 101-126 mg/dL DIABETES 126 mg/dL or higher Interpretation and review of laboratory results Abnormal [facility] Potassium [Moles/Vol] 4.2 mmol/L [facility] Protein [Mass/Vol] 6.9 g/dL [facility] Sodium [Moles/Vol] 138 mmol/L [facility] Urea nitrogen [Mass/Vol] 14 mg/dL [facility] CT Abdomen and Pelvis WO con traston 07-23-2023 IMPRESSION: 1. 2 calcifications are seen associated with the right kidney and right renal pelvis are no longer identified. There is one small calcification still associated with the left kidney which is nonobstructive. The kidneys and ureters are otherwise normal. 2. Probable prior appendectomy. 3. I do not appreciate any other acute appearing intra-abdominal or pelvic finding. RADIOLOGY EXAMINATION: CT ABDOMEN/PELVIS WITHOUT CONTRAST, 07/23/2023 2:06 PM EDT HISTORY: Abdominal pain/history of recent exploratory laparoscopic surgery several days earlier. COMPARISON: 07/18/2022. TECHNIQUE: CT scan of the abdomen and pelvis was performed without IV contrast. CT dose reduction technique was used, including Automated Exposure Control. 3 mm axial unenhanced images of the abdomen and pelvis were performed. There are coronal and sagittal reformations. They were viewed in several different windows. FINDINGS: Lung bases are clear. The heart size is normal in size and appearance. There is little intra-abdominal fat to separate structures. Allowing for this I do not see any abnormality of the unenhanced liver or spleen. Pancreas and gallbladder appear normal as do the adrenal glands. On the prior exam there are two calcifications associated with the right kidney. One in the pelvis and one in the midpole. I am not identifying either these calcifications on today's exam. On the prior exam there was a small calcification in the mid to lower pole of the left kidney. This is still present. Left kidney is otherwise normal as is the left ureter. Aorta and IVC are normal. There is no adenopathy. The appendix I believe has been removed. There is a normal abdominal gas pattern. There is no obstruction, free air, or air-fluid levels. I do not see any adenopathy. The uterus and adnexal regions are thought to be satisfactory. No mass or inflammatory change was appreciated. There is no free fluid in the pelvis. The bladder is largely contracted but otherwise normal. RADIOLOGY Hilda Palmer DO - 07/23/2023 EXAMINATION: CT ABDOMEN/PELVIS WITHOUT CONTRAST, 07/23/2023 2:06 PM EDT HISTORY: Abdominal pain/history of recent exploratory laparoscopic surgery several days earlier. COMPARISON: 07/18/2022. TECHNIQUE: CT scan of the abdomen and pelvis was performed without IV contrast. CT dose reduction technique was used, including Automated Exposure Control. 3 mm axial unenhanced images of the abdomen and pelvis were performed. There are coronal and sagittal reformations. They were viewed in several different windows. FINDINGS: Lung bases are clear. The heart size is normal in size and appearance. There is little intra-abdominal fat to separate structures. Allowing for this I do not see any abnormality of the unenhanced liver or spleen. Pancreas and gallbladder appear normal as do the adrenal glands. On the prior exam there are two calcifications associated with the right kidney. One in the pelvis and one in the midpole. I am not identifying either these calcifications on today's exam. On the prior exam there was a small calcification in the mid to lower pole of the left kidney. This is still present. Left kidney is otherwise normal as is the left ureter. Aorta and IVC are normal. There is no adenopathy. The appendix I believe has been removed. There is a normal abdominal gas pattern. There is no obstruction, free air, or air-fluid levels. I do not see any adenopathy. The uterus and adnexal regions are thought to be satisfactory. No mass or inflammatory change was appreciated. There is no free fluid in the pelvis. The bladder is largely contracted but otherwise normal. IMPRESSION IMPRESSION: 1. 2 calcifications are seen associated with the right kidney and right renal pelvis are no longer identified. There is one small calcification still associated with the left kidney which is nonobstructive. The kidneys and ureters are otherwise normal. 2. Probable prior appendectomy. 3. I do not appreciate any other acute appearing intra-abdominal or pelvic finding. [facility] Radiology Study observation (narrative) [facility] CT Abdomen and Pelvis WO con trastOrdered By: Hilda Palmer on 07-23-2023 [facility] HCG ( test) Qlon [facility] LACTATE, BLOODon 07-23-2023 Lactate [Moles/Vol] 0.8 mmol/L 0.7 - 2. 0 mmol/L [facility] LIPASEon 07-23-2023 Lipase [Catalytic activity/Vol] 50 U/L 23 - 300 U/L [facility] No Panel Informationon 07-22 Interpretation and review of laboratory results Abnormal [facility] URINALYSIS, MACROon 07-23-19 Bilirubin Ql (U) Negative NEGATIVE [facility] Clarity (U) CLEAR CLEAR [facility] Color (U) YELLOW YELLOW [facility] Glucose Test strip (U) [Mass/Vol] Negative NEGATIVE mg/dl [facility] Hemoglobin Ql (U) TRACE-INTACT Abnormal NEGATIVE [facility] Ketones (U) [Mass/Vol] Negative NEGATIVE mg/dl [facility] Leukocyte esterase Test strip Ql (U) TRACE Abnormal NEGATIVE [facility] Nitrite Ql (U) Negative NEGATIVE [facility] pH (U) 8.5 [pH] High 5.0 - 7.0 [facility] Protein Ql (U) Negative NEGATIVE mg/dl [facility] Specific gravity (U) [Rel density] 1.020 1.010 - 1.025 [facility] Urobilinogen (U) [Mass/Vol] 1.0 mg/dL [facility] URINE MICROSCOPICon 07-23-19 24 Bacteria LM.HPF (Urine sed) [#/Area] TRACE Abnormal NEGATIVE [facility] Casts LM.LPF (Urine sed) [#/Area] NONE NONE /LPF [facility] Crystals LM Nom (Urine sed) OCCASIONAL Abnormal NONE [facility] Comment on above: AMORPHOUS URATES Epithelial cells LM Ql (Urine sed) 20 TO 30 /HPF [facility] Mucus Ql (Urine sed) Negative NEGATIVE [facility] RBC LM.HPF (Urine sed) [#/Area] 1 TO 5 NEGATIVE /HPF [facility] Urine sediment comments LM Surinder (Urine sed) POSSIBLY CONTAMINATED SPECIMEN, CULTURE MUST BE ORDERED SEPARATELY IF DEEMED NECESSARY. [facility] WBC LM.HPF (Urine sed) [#/Area] 1 TO 5 NEGATIVE /HPF [facility] HCG ( test) Ql (U)o n 07-19-2023 HCG.beta subunit [Moles/Vol] Negative [facility] Comment on above: Lot #[id number], EXP 2024-12-25, internal control ok [facility] REPEAT ABO/RH (D) TYPINGon 0 07-19-2023 ABO and Rh group Nom (Bld ) Positive [facility] CBC, EDIF, PLATELETon 2023 ABSOLUTE BASOPHIL COUNT 0.0 10*3/uL 0.0 - 0.2 10*3/uL [facility] Basophils/100 WBC (Bld) 0.7 % 0.0 - 2.0 % [facility] Differential cell count method Nom (Bld) AUTO DIFF % [facility] Eosinophils (Bld) [#/Vol] 0.0 10*3/uL 0.0 - 0.7 10*3/uL [facility] Eosinophils/100 WBC (Bld) 0.9 % 0.0 - 11.0 % [facility] Erythrocyte distribution width (RBC) [Ratio] 14.7 % High 11.5 - 14.5 % [facility] Hematocrit (Bld) [Volume fraction] 39.0 % 36.0 - 48.0 % [facility] Hemoglobin (Bld) [Mass/Vol] 13.5 g/dL [facility] Interpretation and review of laboratory results Abnormal [facility] Lymphocytes (Bld) [#/Vol] 1.1 10*3/uL Low 1.2 - 3.4 10*3/uL [facility] Lymphocytes/100 WBC (Bld) 21.0 % 20.0 - 55.0 % [facility] MCH (RBC) [Entitic mass] 31.9 pg 26.0 - 35.0 PG [facility] MCHC (RBC) [Mass/Vol] 34.7 g/dL [facility] MCV (RBC) [Entitic vol] 91.9 fL [facility] Monocytes (Bld) [#/Vol] 0.4 10*3/uL 0.0 - 0.7 10*3/uL [facility] Monocytes/100 WBC (Bld) 7.7 % 0.0 - 10.0 % [facility] Neutrophils (Bld) [#/Vol] 3.7 10*3/uL 1.4 - 6.5 10*3/uL [facility] Neutrophils/100 WBC (Bld) 69.7 % 37.0 - 75.0 % [facility] Platelet mean volume (Bld) [Entitic vol] 7.1 fL Low [facility] Platelets (Bld) [#/Vol] 258 10*3/uL 130 - 400 10*3/uL [facility] RBC (Bld) [#/Vol] 4.25 10*6/uL 4.0 - 5.4 10*6/uL [facility] WBC (Bld) [#/Vol] 5.4 10*3/uL 3.6 - 11.0 10*3/uL [facility] CHEM 7 (LYTES,BUN,CREA,GLUC) on 04-04-2023 Chloride [Moles/Vol] 107 mmol/L [facility] Comment on above: Please note: Triglyc eride levels of 600mg/dL or higher may positively bias chloride results by approximately 2.1 mmol CO2 [Moles/Vol] 25 mmol/L [facility] Creatinine [Mass/Vol] 0.72 mg/dL [facility] GFR COMMENT Unable to calculate GFR due to inappropriate age/gender/creatinine value. [facility] Glucose post fast [Mass/Vol] 86 mg/dL [facility] Comment on above: NORMAL <100 mg/dL PREDIABETES 101-126 mg/dL DIABETES 126 mg/dL or higher Potassium [Moles/Vol] 4.1 mmol/L [facility] Sodium [Moles/Vol] 137 mmol/L [facility] Urea nitrogen [Mass/Vol] 12 mg/dL [facility] HCG ( test) Ql (U)o n 04-04-2023 [facility] HCG QUALITATIVE, URINEon HCG ( test) Ql (U) Negative NEGATIVE [facility] HEPATIC FUNCTION PANELon Albumin [Mass/Vol] 4.2 g/dL [facility] ALP [Catalytic activity/Vol] 84 U/L [facility] ALT [Catalytic activity/Vol] 18 U/L NINF [facility] AST [Catalytic activity/Vol] 28 U/L [facility] Bilirubin [Mass/Vol] 0.4 mg/dL [facility] Bilirubin.direct [Mass/Vol] 0.1 mg/dL [facility] Protein [Mass/Vol] 6.7 g/dL [facility] LIPASEon 04-04-2023 Lipase [Catalytic activity/Vol] 63 U/L 23 - 300 U/L [facility] No Panel Informationon 04-04 Interpretation and review of laboratory results Abnormal [facility] URINALYSIS, MACROon 04-04-19 24 Bilirubin Ql (U) Negative NEGATIVE [facility] Clarity (U) CLEAR CLEAR [facility] Color (U) YELLOW YELLOW [facility] Glucose Test strip (U) [Mass/Vol] Negative NEGATIVE mg/dl [facility] Hemoglobin Ql (U) MODERATE Abnormal NEGATIVE [facility] Ketones (U) [Mass/Vol] Negative NEGATIVE mg/dl [facility] Leukocyte esterase Test strip Ql (U) Negative NEGATIVE [facility] Nitrite Ql (U) Negative NEGATIVE [facility] pH (U) 7.0 [pH] 5.0 - 7.0 [facility] Protein Ql (U) TRACE Abnormal NEGATIVE mg/dl [facility] Specific gravity (U) [Rel density] 1.020 1.010 - 1.025 [facility] Urobilinogen (U) [Mass/Vol] 0.2 mg/dL [facility] URINE MICROSCOPICon 04-04-19 24 Bacteria LM.HPF (Urine sed) [#/Area] TRACE Abnormal NEGATIVE [facility] Casts LM.LPF (Urine sed) [#/Area] NONE NONE /LPF [facility] Crystals LM Nom (Urine sed) OCCASIONAL Abnormal NONE [facility] Comment on above: CA OXALATE CRYSTALS Epithelial cells LM Ql (Urine sed) 1 TO 5 /HPF [facility] Mucus Ql (Urine sed) TRACE Abnormal NEGATIVE [facility] RBC LM.HPF (Urine sed) [#/Area] 1 TO 5 NEGATIVE /HPF [facility] Urine sediment comments LM Surinder (Urine sed) REFLEX CULTURE PER ESTABLISHED CRITERIA. [facility] WBC LM.HPF (Urine sed) [#/Area] 1 TO 5 NEGATIVE /HPF [facility] US Pelvis transvaginalon IMPRESSION: 1. Normal uterus and endometrial thickness. 2. Normal ovaries with a few normal-appearing follicles in the right ovary. RADIOLOGY EXAMINATION: US PELV IC WITH TRANSVAGINAL WITH DOPPLER TECHNIQUE: Transabdominal followed by transvaginal for better detail. Grayscale and color flow Doppler imaging. HISTORY: pain. COMPARISON: CT abdomen pelvis: 07/18/2022 FINDINGS: Uterus and cervix: Uterus measures 5.8 x 3.1 x 4.1 cm. No focal abnormality. Endometrium: Thickness measures 5mm. Right ovary: Measures 5.1 x 3.5 x 4.6 cm. Normal weeks scale and Doppler appearance. There are a few small follicular cysts. Left ovary: Measures 1.9 x 1.1 x 1.8 cm. Normal weeks scale and Doppler appearance. Adnexa: No adnexal mass lesion. Cul-de-sac: Normal, non or minimal free fluid likely physiologic. RADIOLOGY Loyd Domingo MD - 04/04/2023 EXAMINATION: US PELVIC WITH TRANSVAGINAL WITH DOPPLER TECHNIQUE: Transabdominal followed by transvaginal for better detail. Grayscale and color flow Doppler imaging. HISTORY: pain. COMPARISON: CT abdomen pelvis: 07/18/2022 FINDINGS: Uterus and cervix: Uterus measures 5.8 x 3.1 x 4.1 cm. No focal abnormality. Endometrium: Thickness measures 5mm. Right ovary: Measures 5.1 x 3.5 x 4.6 cm. Normal weeks scale and Doppler appearance. There are a few small follicular cysts. Left ovary: Measures 1.9 x 1.1 x 1.8 cm. Normal weeks scale and Doppler appearance. Adnexa: No adnexal mass lesion. Cul-de-sac: Normal, non or minimal free fluid likely physiologic. IMPRESSION IMPRESSION: 1. Normal uterus and endometrial thickness. 2. Normal ovaries with a few normal-appearing follicles in the right ovary. [facility] Radiology Study observation (narrative) [facility] US Pelvis transvaginalOrdere d By: Loyd Domingo on 04-04-2023 [facility] Work Phone: COVID-19/INFLUENZA A,B MOLEC ULARon 11-03-2022 SARS-CoV-2 (COVID-19) Ab IA Ql INFLUENZA A (CEPHEID): Not Detected INFLUENZA B (CEPHEID): Not Detected SARS-COV-2 (CEPHEID): Not Detected This test was performed under the FDA's Emergency Use Authorization (EUA). Testing was performed using the Xpert?? Xpress SARS-CoV-2/Flu/RSV plus RT-PCR CepMissingLINKid assay on the [employer] Xpress System. This test has not been approved for use in asymptomatic patients and its performance in this patient population has not been evaluated. Negative results do not rule out the presence of SARS-CoV-2/COVID-19. Fact sheets for this EUA can be found at the following links: For Healthcare Providers: https://www.fda.gov/medi a/224969/download For Patients: https://www.fda.gov/medi a/281509/download [facility] Comment on above: Performed By: #### L [id number] #### [facility] [address] [place], [place] [address] Luca Erwin M.D. 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 BI-RADS: 2: Benign Recommendation: Clinical correlation/management. Recommendation Laterality: Left OLOGY EXAM: US BREAST LIMI PATTI UNILATERAL LEFT, 09/13/2022 09:53 AM CLINICAL INDICATIONS: 17-year-old female presents for follow-up after benign ultrasound-guided biopsy performed on 04/25/2022 yielding pathology results of a fibroadenoma. COMPARISON: April 25, 2022, April 03, 2022 TECHNIQUE: Multiple real-time weeks-scale images of the left breast in the 1 o'clock axis are performed. Color Doppler was used to assess vascular flow. FINDINGS: In the left breast at 1:00 zone 1-2, 7.5 cm from the nipple within the marked area, there is redemonstration of a hypoechoic oval-shaped mass with circumscribed margins that is stable in size compared to 04/03/2022 exam measuring 1.0 x 0.4 x 1.0 cm, previously measuring 0.9 x 0.5 x 1.0 cm. The biopsy clip is adjacent to the mass. No internal vascularity is demonstrated. No new suspicious sonographic findings within this region. RADIOLOGY Jana Toledo DO - 09/13/2022 EXAM: US BREAST LIMITED UNILATERAL LEFT, 09/13/2022 09:53 AM CLINICAL INDICATIONS: 17-year-old female presents for follow-up after benign ultrasound-guided biopsy performed on 04/25/2022 yielding pathology results of a fibroadenoma. COMPARISON: April 25, 2022, April 03, 2022 TECHNIQUE: Multiple real-time weeks-scale images of the left breast in the 1 o'clock axis are performed. Color Doppler was used to assess vascular flow. FINDINGS: In the left breast at 1:00 zone 1-2, 7.5 cm from the nipple within the marked area, there is redemonstration of a hypoechoic oval-shaped mass with circumscribed margins that is stable in size compared to 04/03/2022 exam measuring 1.0 x 0.4 x 1.0 cm, previously measuring 0.9 x 0.5 x 1.0 cm. The biopsy clip is adjacent to the mass. No internal vascularity is demonstrated. No new suspicious sonographic findings within this region. 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 BI-RADS: 2: Benign Recommendation: Clinical correlation/management. Recommendation Laterality: Left [facility] Radiology Study observation (narrative) [facility] US Breast - left limitedOrde red By: Jana Toledo on 09-13-2022 [facility] Work Phone: XR Knee - right 2 Viewson IMPRESSION: Interval medial patellofemoral ligament reconstruction. OLOGY EXAM: XR KNEE RIGHT 2 VIEWS , 08/23/2022 10:41 AM COMPARISON: Radiographs dated June 14, 2022. MRI dated July 05, 2022. CLINICAL INDICATIONS: post-op RELEVANT CLINICAL HISTORY: Z98.890:S/P knee surgery AP/Lateral.; FINDINGS: 2 images obtained. Effusion: Joint effusion is evident. Soft Tissue: Anterior soft tissue swelling. Bone: Tibial tubercle osteotomy again noted with intact screws and healed operative site. Interval medial patellofemoral ligament reconstruction. Joint: There is no significant joint space narrowing. TibFib syndesmosis: The proximal tibiofibular syndesmosis is anatomically aligned. RADIOLOGY Nathaniel Cummings DO - 08/23/2022 EXAM: XR KNEE RIGHT 2 VIEWS , 08/23/2022 10:41 AM COMPARISON: Radiographs dated June 14, 2022. MRI dated July 05, 2022. CLINICAL INDICATIONS: post-op RELEVANT CLINICAL HISTORY: Z98.890:S/P knee surgery AP/Lateral.; FINDINGS: 2 images obtained. Effusion: Joint effusion is evident. Soft Tissue: Anterior soft tissue swelling. Bone: Tibial tubercle osteotomy again noted with intact screws and healed operative site. Interval medial patellofemoral ligament reconstruction. Joint: There is no significant joint space narrowing. TibFib syndesmosis: The proximal tibiofibular syndesmosis is anatomically aligned. IMPRESSION IMPRESSION: Interval medial patellofemoral ligament reconstruction. [facility] Radiology Study observation (narrative) [facility] XR Knee - right 2 ViewsOrder ed By: Nathaniel Cummings on 08-23-2022 [facility] Work Phone: XR OR FLUOROSCOPY TIMEon XR OR FLUOROSCOPY TIME This is an auto finalized result. Please refer to patient chart for further information. further information. further information. [facility] Comment on above: Order Comment: Injur y/Trauma or Illness?:Illness/Other How long have you had these symptoms (acute/chronic)?:Acute Reason for exam?:R RENAL CALCULI / STENT Type of Exam?:Initial Additional signs and symptoms?:R FLANK PAIN Fluoro time in minutes:1.52 Fluoro dose in mGy?:6.21 CT ABDOMEN PELVIS WITHOUT CO NTRASTon 07-18-2022 CT ABDOMEN PELVIS WITHOUT CONTRAST EXAMINATION: CT ABDOMEN PELVIS WITHOUT CONTRAST HISTORY: ORDERING SYSTEM PROVIDED HISTORY: Flank pain, kidney stone suspected, TECHNOLOGIST PROVIDED HISTORY: Illness/Other Reason for exam: Flank pain, kidney stone suspected Encounter Type: Unknown Additional signs and symptoms: Flank pain, kidney stone suspected ORDERING SYSTEM PROVIDED DIAGNOSIS CODES: COMPARISON: 06/17/2020 CT abdomen and pelvis. TECHNIQUE: CT examination of the abdomen and pelvis without IV contrast. Coronal and sagittal reformations were performed. Dose reduction techniques were achieved by using automated exposure control and/or adjustment of mA and/or kV according to patient size and/or use of iterative reconstruction technique. FINDINGS: LOWER CHEST: Normal. ABDOMEN: Liver: Normal. Bile ducts: Normal caliber. Gallbladder: No calcified gallstones. Normal caliber wall. Pancreas: Normal. Spleen: Normal. Adrenals: Normal. Kidneys: No hydronephrosis. Few bilateral nonobstructing renal calculi measuring up to 3 mm PELVIS: Reproductive organs: Low-density lesion of the left ovary, measures 1.9 x 1.8 cm. Likely represents a dominant follicle. Ureters: Slight dilatation of the right ureteropelvic junction with 3 x 4 mm proximal ureteral obstructing calculus. Distally, right ureter is normal caliber. Normal caliber left ureter. Bladder: Decompressed without gross abnormality. OTHER ABDOMEN AND PELVIS: Bowel: Prior appendectomy. No bowel obstruction. Peritoneum: No free intraperitoneal air. No ascites or fluid collection. Vessels: Normal. Lymph nodes: No enlarged lymph nodes. Abdominal wall: Normal. Osseous structures: No destructive lesions. IMPRESSION: Slight dilatation of the right UPJ with 3 x 4 mm proximal ureteral calculus. No obstructive hydronephrosis. If persistent pain symptoms, CT urogram could be considered. Few bilateral nonobstructing renal calculi. Probable dominant left ovarian follicle. Prior appendectomy. [employer] Workstation ID: [id number] Dictated by: TONY THAO on SatJuly 18, 2022 4:36:06 PM EDT Transcribed by: CARISSA JUNIOR on SatJuly 18, 2022 4:41:25 PM EDT Finalized by: TONY THAO on SatJuly 18, 2022 8:50:23 PM EDT Normal [facility] Comment on above: Order Comment: Injur y/Trauma or Illness?:Illness/Other How long have you had these symptoms (acute/chronic)?:Acute Reason for exam?:Flank pain, kidney stone suspected Type of Exam?:Unknown Additional signs and symptoms?:Flank pain, kidney stone suspected MR Knee - right WO contrasto n 07-05-2022 IMPRESSION: 1. Focal edema in the superior-lateral aspect of Hoffa's fat pad suggests possible anterior impingement. 2. Otherwise no internal derangement. 3. Tibial fixation hardware with associated susceptibility artifact. OLOGY EXAM: MRI KNEE RIGHT WITHOUT CONTRAST, 07/05/2022 07:43 AM CLINICAL INDICATIONS: negative x-ray R knee pain; RELEVANT CLINICAL HISTORY: M25.561:Right knee pain, unspecified chronicity COMPARISON: Right knee radiographs June 14, 2022 TECHNIQUE: Multiplanar multisequence imaging of the right knee was performed without the use of intravenous contrast. FINDINGS: Soft Tissue: Focal edema in the superior-lateral aspect of Hoffa's fat pad suggests possible anterior impingement. Effusion: A trace knee joint effusion is present without a Murphy's cyst. Ligaments: The iliotibial band, lateral collateral ligament, cruciate ligaments, and tendons of the extensor mechanism appear grossly intact. There is thickening of the morphology of the proximal medial collateral ligament consistent with remote trauma. Menisci: The menisci are normal in signal and morphology. Cartilage: Joint spaces appear well preserved. The articular cartilage is within normal limits. Bone: No acute osseous abnormality is identified. Susceptibility artifact is related to tibial fixation hardware. Muscles: Muscles demonstrate normal morphology and signal intensity. RADIOLOGY Jeremy Lopez MD - 07/05/2022 EXAM: MRI KNEE RIGHT WITHOUT CONTRAST, 07/05/2022 07:43 AM CLINICAL INDICATIONS: negative x-ray R knee pain; RELEVANT CLINICAL HISTORY: M25.561:Right knee pain, unspecified chronicity COMPARISON: Right knee radiographs June 14, 2022 TECHNIQUE: Multiplanar multisequence imaging of the right knee was performed without the use of intravenous contrast. FINDINGS: Soft Tissue: Focal edema in the superior-lateral aspect of Hoffa's fat pad suggests possible anterior impingement. Effusion: A trace knee joint effusion is present without a Murphy's cyst. Ligaments: The iliotibial band, lateral collateral ligament, cruciate ligaments, and tendons of the extensor mechanism appear grossly intact. There is thickening of the morphology of the proximal medial collateral ligament consistent with remote trauma. Menisci: The menisci are normal in signal and morphology. Cartilage: Joint spaces appear well preserved. The articular cartilage is within normal limits. Bone: No acute osseous abnormality is identified. Susceptibility artifact is related to tibial fixation hardware. Muscles: Muscles demonstrate normal morphology and signal intensity. IMPRESSION IMPRESSION: 1. Focal edema in the superior-lateral aspect of Hoffa's fat pad suggests possible anterior impingement. 2. Otherwise no internal derangement. 3. Tibial fixation hardware with associated susceptibility artifact. [facility] Radiology Study observation (narrative) [facility] MR Knee - right WO contrastO rdered By: Jeremy Lopez on 07-05-2022 [facility] Work Phone: XR Knee - right 3 Viewson IMPRESSION: Status post tibial tubercle osteotomy. No acute osseous abnormality. OLOGY EXAM: XR KNEE RIGHT 3 VIEWS, 06/14/2022 09:24 AM COMPARISON: No prior studies available for comparison. CLINICAL INDICATIONS: knee pain RELEVANT CLINICAL HISTORY: M25.561:Right knee pain, unspecified chronicity Bilateral PA weight bearing on one film, Bilateral [place] Patella on one film, 30 degree lateral knee.; FINDINGS: 3 images obtained. Effusion: There is no joint effusion. Soft Tissue: There is no significant soft tissue swelling. Bone: Status post tibial tubercle osteotomy with 3 intact partially threaded cannulated screws. Osteotomy site appears well incorporated. No acute fracture. Joint: Joint spaces are preserved. TibFib syndesmosis: The proximal tibiofibular syndesmosis is anatomically aligned. RADIOLOGY Nathaniel Cummings DO - 06/14/2022 EXAM: XR KNEE RIGHT 3 VIEWS, 06/14/2022 09:24 AM COMPARISON: No prior studies available for comparison. CLINICAL INDICATIONS: knee pain RELEVANT CLINICAL HISTORY: M25.561:Right knee pain, unspecified chronicity Bilateral PA weight bearing on one film, Bilateral [place] Patella on one film, 30 degree lateral knee.; FINDINGS: 3 images obtained. Effusion: There is no joint effusion. Soft Tissue: There is no significant soft tissue swelling. Bone: Status post tibial tubercle osteotomy with 3 intact partially threaded cannulated screws. Osteotomy site appears well incorporated. No acute fracture. Joint: Joint spaces are preserved. TibFib syndesmosis: The proximal tibiofibular syndesmosis is anatomically aligned. IMPRESSION IMPRESSION: Status post tibial tubercle osteotomy. No acute osseous abnormality. [facility] Radiology Study observation (narrative) [facility] XR Knee - right 3 ViewsOrder ed By: Nathaniel Cummings on 06-14-2022 [facility] Work Phone: XR SMALL BOWEL FOLLOW THROUG Hon 05-24-2022 XR SMALL BOWEL FOLLOW THROUGH EXAMINATION: XR UPPER GI WITH ESOPHAGRAM; XR SMALL BOWEL FOLLOW THROUGH HISTORY: ORDERING SYSTEM PROVIDED HISTORY: constipation, bloating, nausea, TECHNOLOGIST PROVIDED HISTORY: Illness/Other Reason for exam: Chronic constipation, Bloating, Nausea Encounter Type: Initial Additional signs and symptoms: None Fluoro dose in mGy: 18.8 ORDERING SYSTEM PROVIDED DIAGNOSIS CODES: K59.09 Chronic constipation R14.0 Bloating R11.0 Nausea COMPARISON: None. TECHNIQUE: Fluoro Dose Ka,r mGy: Fluoro dose in Ka,r mGy: 18.8; Fluoro dose in Ka,r mGy: 22.1 Double-contrast barium esophagram and upper GI examination. Patient was administered barium contrast and effervescent crystals. Small bowel follow-through. Fluoroscopy time is 1.72 minutes. Initial home performance laborer view of the abdomen. Twelve fluoroscopic spot films and multiple fluoroscopic cine loop images were obtained. FINDINGS: Esophagram/upper GI: Double-contrast views of the esophagus showed normal contour, caliber and grossly normal mucosal pattern. Swallowing views of the pharynx in AP and lateral projection showed no abnormal impressions on the pharynx/cervical esophagus, webs or diverticula. Recumbent swallowing view show normal esophageal motility. With rolling maneuvers on the table, spontaneous gastroesophageal reflux occurred to the level of the upper thoracic esophagus. Stomach shows a grossly normal mucosal pattern. There is free flow of barium through the pylorus into a normal-appearing duodenal bulb and loop. Small bowel follow-through: Initial home performance laborer view shows 2 calcifications overlying the mid right renal shadow measuring 3 mm and 2 mm. There is also suspected punctate 2 mm stone in the left kidney. There is no gaseous distention of the stomach or bowel. The barium contrast reaches the cecum at the 20-minute film. The jejunum/ileum show a grossly normal mucosal pattern. No dilatation or abnormally fixed loops on spot compression. Terminal ileum appears normal. IMPRESSION: 1. Spontaneous gastroesophageal reflux which occurred to the upper thoracic esophagus. 2. The esophagram and upper GI examination is otherwise within normal limits. 3. Fairly brisk transit time of the oral contrast to the colon occurring at about 20 minutes. Otherwise unremarkable small bowel follow-through. 4. Incidental bilateral punctate renal stones. [facility]mr[facility]Chloe [facility] Isabel Workstation ID: [id number] Dictated by: KATTY WHITNEY on SatMay 24, 2022 12:17:54 PM EDT Transcribed by: VIVIANE MEJIA on SatMay 24, 2022 1:36:57 PM EDT Finalized by: KATTY WHITNEY on SatMay 24, 2022 2:07:40 PM EDT Normal [facility] Comment on above: Order Comment: Injur y/Trauma or Illness?:Illness/Other How long have you had these symptoms (acute/chronic)?:Chronic Reason for exam?:Chronic constipation, Bloating, Nausea Type of Exam?:Initial Additional signs and symptoms?:None Fluoro time in minutes:1.03 Fluoro dose in mGy?:22.1 XR UPPER GI WITH ESOPHAGRAMo n 05-24-2022 XR UPPER GI WITH ESOPHAGRAM EXAMINATION: XR UPPER GI WITH ESOPHAGRAM; XR SMALL BOWEL FOLLOW THROUGH HISTORY: ORDERING SYSTEM PROVIDED HISTORY: constipation, bloating, nausea, TECHNOLOGIST PROVIDED HISTORY: Illness/Other Reason for exam: Chronic constipation, Bloating, Nausea Encounter Type: Initial Additional signs and symptoms: None Fluoro dose in mGy: 18.8 ORDERING SYSTEM PROVIDED DIAGNOSIS CODES: K59.09 Chronic constipation R14.0 Bloating R11.0 Nausea COMPARISON: None. TECHNIQUE: Fluoro Dose Ka,r mGy: Fluoro dose in Ka,r mGy: 18.8; Fluoro dose in Ka,r mGy: 22.1 Double-contrast barium esophagram and upper GI examination. Patient was administered barium contrast and effervescent crystals. Small bowel follow-through. Fluoroscopy time is 1.72 minutes. Initial home performance laborer view of the abdomen. Twelve fluoroscopic spot films and multiple fluoroscopic cine loop images were obtained. FINDINGS: Esophagram/upper GI: Double-contrast views of the esophagus showed normal contour, caliber and grossly normal mucosal pattern. Swallowing views of the pharynx in AP and lateral projection showed no abnormal impressions on the pharynx/cervical esophagus, webs or diverticula. Recumbent swallowing view show normal esophageal motility. With rolling maneuvers on the table, spontaneous gastroesophageal reflux occurred to the level of the upper thoracic esophagus. Stomach shows a grossly normal mucosal pattern. There is free flow of barium through the pylorus into a normal-appearing duodenal bulb and loop. Small bowel follow-through: Initial home performance laborer view shows 2 calcifications overlying the mid right renal shadow measuring 3 mm and 2 mm. There is also suspected punctate 2 mm stone in the left kidney. There is no gaseous distention of the stomach or bowel. The barium contrast reaches the cecum at the 20-minute film. The jejunum/ileum show a grossly normal mucosal pattern. No dilatation or abnormally fixed loops on spot compression. Terminal ileum appears normal. IMPRESSION: 1. Spontaneous gastroesophageal reflux which occurred to the upper thoracic esophagus. 2. The esophagram and upper GI examination is otherwise within normal limits. 3. Fairly brisk transit time of the oral contrast to the colon occurring at about 20 minutes. Otherwise unremarkable small bowel follow-through. 4. Incidental bilateral punctate renal stones. Simmr/Chloe + Isabel Workstation ID: [id number] Dictated by: KATTY WHITNEY on Beryl May 24, 2022 12:17:54 PM EDT Transcribed by: VIVIANE MEJIA on SatMay 24, 2022 1:36:57 PM EDT Finalized by: KATTY WHITNEY on Beryl May 24, 2022 2:07:40 PM EDT Normal [facility] Comment on above: Order Comment: Injur y/Trauma or Illness?:Illness/Other How long have you had these symptoms (acute/chronic)?:Chronic Reason for exam?:Chronic constipation, Bloating, Nausea Type of Exam?:Initial Additional signs and symptoms?:None Fluoro time in minutes:1.72 Fluoro dose in mGy?:18.8 XR Knee - right 3 Viewson IMPRESSION: 1. No evidence of fracture or other acute traumatic bony pathology of the right knee is seen. 2. Prior surgical screw fixation of the anterior tibia. RADIOLOGY EXAM: XR KNEE RIGHT 3 VIEWS. HISTORY: Pain status post fall. COMPARISON: None available. FINDINGS: 3 views of the right knee were obtained. These were AP, lateral and oblique views. No acute fracture. Joint alignment is anatomic. Joint spaces are preserved. Soft tissues are within normal limits. Patient has 3 long threaded screws traversing the proximal anterior tibia. Patella appears anatomically aligned. No large joint effusion was identified. RADIOLOGY Hilda Palmer, DO - 05/14/2022 EXAM: XR KNEE RIGHT 3 VIEWS. HISTORY: Pain status post fall. COMPARISON: None available. FINDINGS: 3 views of the right knee were obtained. These were AP, lateral and oblique views. No acute fracture. Joint alignment is anatomic. Joint spaces are preserved. Soft tissues are within normal limits. Patient has 3 long threaded screws traversing the proximal anterior tibia. Patella appears anatomically aligned. No large joint effusion was identified. IMPRESSION IMPRESSION: 1. No evidence of fracture or other acute traumatic bony pathology of the right knee is seen. 2. Prior surgical screw fixation of the anterior tibia. [facility] Radiology Study observation (narrative) [facility] XR Knee - right 3 ViewsOrder ed By: Hilda Palmer on 05-14-2022 [facility] US BREAST BIOPSY LEFTon 04-05 US BREAST BIOPSY LEFT EXAMINATION: US BREAST BIOPSY LEFT INDICATION: Dx: R93.89 (Abnormal finding on imaging) 17-year-old female presents for ultrasound-guided biopsy of previously noted mass within the left breast 1 o'clock axis, 5 cm from the nipple. COMPARISON: Ultrasound April 03, 2022. TECHNIQUE AND FINDINGS: Following the explanation of the risks, benefits and alternatives of the procedure to the patient, informed consent was obtained. Time out was performed. The patient was placed on the ultrasound table and the lesion of concern in the left breast at 1 o'clock was redemonstrated and an appropriate approach selected. The area was prepped and draped in the usual sterile fashion. Under sterile technique, the area was anesthetized and a small incision was made in the skin. Under ultrasound guidance a 14 gauge biopsy needle was introduced and advanced to the target lesion. Then, 4 cores were obtained under ultrasound guidance with confirmation of accurate targeting showing the biopsy needle through the lesion. The biopsy needle was retrieved and a T3 biopsy marker was placed at the biopsy site. Compression was applied to the area and Steri-strips used for the skin incision. No complications occurred. IMPRESSION: Technically successful ultrasound guided core needle biopsy of the left breast. Awaiting pathology results. An addendum will be placed when the pathology results are available. The patient will follow-up with her physician with the results. Workstation ID: [id number] Addended: SatApr 30, 2022 5:20 PM by Meme Ortega MD ADDENDUM: Pathology: Breast, Left, 1:00 o'clock, ultrasound-guided biopsy: Fibroadenoma with pseudoangiomatous stromal hyperplasia. The pathology is benign and concordant with breast imaging findings. Workstation ID: [id number] Dictated by: MEME ORTEGA on SatApr 25, 2022 10:45:51 AM EST Transcribed by: MEME ORTEGA on SatApr 25, 2022 10:45:51 AM EST Finalized by: MEME ORTEGA on SatApr 25, 2022 10:45:51 AM EST Normal [facility] Comment on above: Order Comment: Injur y/Trauma or Illness?:Illness/Other How long have you had these symptoms (acute/chronic)?:Acute Reason for exam?:left brast mass Type of Exam?:Ongoing Additional signs and symptoms?:none US BREAST BILAT LIMITEDon US BREAST BILAT LIMITED EXAMINATION: US BREAST BILAT LIMITED HISTORY: ORDERING SYSTEM PROVIDED HISTORY: breast lump on left outer quadrant, TECHNOLOGIST PROVIDED HISTORY: Illness/Other Reason for exam: Palpable lump left breast Encounter Type: Initial Additional signs and symptoms: none Illness/Other Reason for exam: Bilateral palpable breast lump/pain Cancer History: u Surgery, RadiationHistory: u Encounter Type: Initial Additional signs and symptoms: none ORDERING SYSTEM PROVIDED DIAGNOSIS CODES: N63.0 Breast lump in female 16-year-old female who presents for evaluation bilateral breast pain and palpable areas of concern. COMPARISON: None TECHNIQUE: Multiple grayscale images of the targeted bilateral breast ultrasound with survey of the right and left axilla were obtained with color Doppler imaging as needed. FINDINGS: Targeted ultrasound in the right breast in the area of patient's palpable concern and pain was performed and corresponds to the 9 to 11 o'clock axis where normal dense breast parenchyma is appreciated without suspicious findings. No right axillary lymphadenopathy. Targeted ultrasound in the left breast was performed in the area of patient's palpable concern and pain which corresponds to the 1 to 4 o'clock axis. In the left breast 1 o'clock axis, 5 cm from the nipple there is a oval circumscribed parallel hypoechoic mass without significant internal vascularity measuring 0.9 x 0.5 x 1.0 cm with neutral posterior acoustic features. The remainder of the survey of the left breast in the area of patient's concern was unremarkable. No left axillary lymphadenopathy. IMPRESSION: 1. Incidental probably benign 1 cm mass in the left breast 1 o'clock axis favoring a fibroepithelial lesion such as fibroadenoma in this age group. Recommend ultrasound follow-up in 6 months to ensure stability. 2. Unremarkable ultrasound of the right breast in the area of patient's concern. Consider continued clinical follow-up for patient's symptoms. BIRADS - CATEGORY 3 Findings are probably benign. A short interval follow-up is recommended in 6 months. OVERALL ASSESSMENT - PROBABLY BENIGN. A letter of notification will be sent to the patient regarding the results. Workstation ID: [id number] Dictated by: MEME ORTEGA on SatApr 03, 2022 2:40:45 PM EST Transcribed by: MEME ORTEGA on SatApr 03, 2022 2:40:45 PM EST Finalized by: MEME ORTEGA on SatApr 03, 2022 2:40:45 PM EST Normal [facility] Comment on above: Order Comment: Injur y/Trauma or Illness?:Illness/Other How long have you had these symptoms (acute/chronic)?:Acute Reason for exam?:Palpable lump left breast Type of Exam?:Initial Additional signs and symptoms?:none Injury/Trauma or Illness?:Illness/Other How long have you had these symptoms (acute/chronic)?:Acute Reason for exam?:Bilateral palpable breast lump/pain History of cancer?:u Surgeries, chemotherapy, or radiation?:u Type of Exam?:Initial Additional signs and symptoms?:none HOLTER MONITOR- EXTENDED (3 TO 7 DAYS)on 03-01-2022 HOLTER MONITOR- EXTENDED (3 TO 7 DAYS) This is a summary report. The complete report is available in the patient's medical record. If you cannot access the medical record, please contact the sending organization for a detailed fax or copy. ?? HOLTER REPORT: 01/30/22- 02/02/22 ?? INDICATIONS: OTHER FATIGUE This is a 48-hour Holter monitor, indication for study is fatigue Summary: Minimum heart rate 39 bpm at 4:28 AM, average heart rate 75 bpm, maximum 172 bpm No supraventricular ectopy noted Rare premature ventricular complexes total burden 0.01% No high-grade AV block, no atrial fibrillation, no pauses 18 patient triggered events 1 corresponds to sinus bradycardia, 11 corresponded sinus tachycardia, 7 are unassociated any arrhythmia Normal [facility] CBC, EDIF, PLATELETon 2021 ABSOLUTE BASOPHIL COUNT 0.0 10*3/uL 0.0 - 0.2 10*3/uL [facility] Basophils/100 WBC (Bld) 1.0 % 0.0 - 2.0 % [facility] Differential cell count method Nom (Bld) AUTO DIFF % [facility] Eosinophils (Bld) [#/Vol] 0.0 10*3/uL 0.0 - 0.7 10*3/uL [facility] Eosinophils/100 WBC (Bld) 0.8 % 0.0 - 11.0 % [facility] Erythrocyte distribution width (RBC) [Ratio] 13.3 % 11.5 - 14.5 % [facility] Hematocrit (Bld) [Volume fraction] 40.7 % 36.0 - 48.0 % [facility] Hemoglobin (Bld) [Mass/Vol] 13.8 g/dL [facility] Interpretation and review of laboratory results Abnormal [facility] Lymphocytes (Bld) [#/Vol] 1.5 10*3/uL 1.2 - 3.4 10*3/uL [facility] Lymphocytes/100 WBC (Bld) 36.9 % 20.0 - 55.0 % [facility] MCH (RBC) [Entitic mass] 31.7 pg 26.0 - 35.0 PG [facility] MCHC (RBC) [Mass/Vol] 33.8 g/dL [facility] MCV (RBC) [Entitic vol] 93.7 fL [facility] Monocytes (Bld) [#/Vol] 0.3 10*3/uL 0.0 - 0.7 10*3/uL [facility] Monocytes/100 WBC (Bld) 6.7 % 0.0 - 10.0 % [facility] Neutrophils (Bld) [#/Vol] 2.3 10*3/uL 1.4 - 6.5 10*3/uL [facility] Neutrophils/100 WBC (Bld) 54.6 % 37.0 - 75.0 % [facility] Platelet mean volume (Bld) [Entitic vol] 6.7 fL Low [facility] Platelets (Bld) [#/Vol] 280 10*3/uL 130.0 - 400.0 10*3/uL [facility] RBC (Bld) [#/Vol] 4.34 10*6/uL 4.0 - 5.4 10*6/uL [facility] WBC (Bld) [#/Vol] 4.1 10*3/uL 3.6 - 11.0 10*3/uL [facility] CHEM 7 (LYTES,BUN,CREA,GLUC) on 01-04-2022 Chloride [Moles/Vol] 105 mmol/L [facility] CO2 [Moles/Vol] 25 mmol/L [facility] Creatinine [Mass/Vol] 0.71 mg/dL [facility] GFR COMMENT Unable to calculate GFR due to inappropriate age/gender/creatinine value. [facility] Glucose post fast [Mass/Vol] 94 mg/dL [facility] Comment on above: NORMAL <100 mg/dL PREDIABETES 101-126 mg/dL DIABETES 126 mg/dL or higher Potassium [Moles/Vol] 3.6 mmol/L [facility] Sodium [Moles/Vol] 139 mmol/L [facility] Urea nitrogen [Mass/Vol] 9 mg/dL [facility] TROPONIN I, HIGH SENSITIVITY on 01-04-2022 TROPONIN I, HIGH SENSITIVITY <2 0 - 12 pg/mL [facility] Comment on above: Indeterminant: >12 to 100 pg/mL female >20 to 100 pg/mL male Indicative of myocardial injury. Serial sampling is recommended, a change of greater than or equal to 20 pg/mL is indicative of acute coronary syndrome. [facility] TSHon 01-04-2022 TSH Qn 0.616 m[IU]/L [facility] XR Chest PA and Lateralon IMPRESSION: No acute infiltrate or evidence of cardiac decompensation. The overall appearance of the chest is unchanged. RADIOLOGY EXAM: XR CHEST PA AN D LATERAL HISTORY: chest discomfort, palpitations COMPARISON: 02/16/2018 TECHNIQUE: Upright PA and lateral chest x-ray FINDINGS: The heart is not enlarged and the vasculature is not distended. No acute infiltrate, effusion or pneumothorax is identified. The osseous structures are grossly intact. A slight pectus deformity is present. RADIOLOGY Calin Delgado MD - 01/04/2022 EXAM: XR CHEST PA AND LATERAL HISTORY: chest discomfort, palpitations COMPARISON: 02/16/2018 TECHNIQUE: Upright PA and lateral chest x-ray FINDINGS: The heart is not enlarged and the vasculature is not distended. No acute infiltrate, effusion or pneumothorax is identified. The osseous structures are grossly intact. A slight pectus deformity is present. IMPRESSION IMPRESSION: No acute infiltrate or evidence of cardiac decompensation. The overall appearance of the chest is unchanged. [facility] Radiology Study observation (narrative) [facility] XR Chest PA and LateralOrder ed By: Calin Delgado on 01-04-2022 [facility] Work Phone: CBC, EDIF, PLATELETon 2021 ABSOLUTE BASOPHIL COUNT 0.0 10*3/uL 0.0 - 0.2 10*3/uL [facility] Basophils/100 WBC (Bld) 0.9 % 0.0 - 2.0 % [facility] Differential cell count method Nom (Bld) AUTO DIFF % [facility] Eosinophils (Bld) [#/Vol] 0.0 10*3/uL 0.0 - 0.7 10*3/uL [facility] Eosinophils/100 WBC (Bld) 0.8 % 0.0 - 11.0 % [facility] Erythrocyte distribution width (RBC) [Ratio] 13.5 % 11.5 - 14.5 % [facility] Hematocrit (Bld) [Volume fraction] 42.4 % 36.0 - 48.0 % [facility] Hemoglobin (Bld) [Mass/Vol] 14.5 g/dL [facility] Interpretation and review of laboratory results Abnormal [facility] Lymphocytes (Bld) [#/Vol] 1.2 10*3/uL 1.2 - 3.4 10*3/uL [facility] Lymphocytes/100 WBC (Bld) 28.5 % 20.0 - 55.0 % [facility] MCH (RBC) [Entitic mass] 32.0 pg 26.0 - 35.0 PG [facility] MCHC (RBC) [Mass/Vol] 34.1 g/dL [facility] MCV (RBC) [Entitic vol] 93.7 fL [facility] Monocytes (Bld) [#/Vol] 0.3 10*3/uL 0.0 - 0.7 10*3/uL [facility] Monocytes/100 WBC (Bld) 6.9 % 0.0 - 10.0 % [facility] Neutrophils (Bld) [#/Vol] 2.7 10*3/uL 1.4 - 6.5 10*3/uL [facility] Neutrophils/100 WBC (Bld) 62.9 % 37.0 - 75.0 % [facility] Platelet mean volume (Bld) [Entitic vol] 7.2 fL Low [facility] Platelets (Bld) [#/Vol] 280 10*3/uL 130.0 - 400.0 10*3/uL [facility] RBC (Bld) [#/Vol] 4.53 10*6/uL 4.0 - 5.4 10*6/uL [facility] WBC (Bld) [#/Vol] 4.4 10*3/uL 3.6 - 11.0 10*3/uL [facility] CHEM 7 (LYTES,BUN,CREA,GLUC) on 01-03-2022 Chloride [Moles/Vol] 103 mmol/L [facility] CO2 [Moles/Vol] 23 mmol/L [facility] Creatinine [Mass/Vol] 0.74 mg/dL [facility] GFR COMMENT Unable to calculate GFR due to inappropriate age/gender/creatinine value. [facility] Glucose post fast [Mass/Vol] 92 mg/dL [facility] Comment on above: NORMAL <100 mg/dL PREDIABETES 101-126 mg/dL DIABETES 126 mg/dL or higher Potassium [Moles/Vol] 4.0 mmol/L [facility] Sodium [Moles/Vol] 138 mmol/L [facility] Urea nitrogen [Mass/Vol] 14 mg/dL [facility] HCG ( test) Ql (U)o n 01-03-2022 [facility] HCG QUALITATIVE, URINEon HCG ( test) Ql (U) Negative NEGATIVE [facility] HEPATIC FUNCTION PANELon Albumin [Mass/Vol] 4.9 g/dL [facility] ALP [Catalytic activity/Vol] 105 U/L [facility] ALT [Catalytic activity/Vol] 18 U/L [facility] AST [Catalytic activity/Vol] 20 U/L [facility] Bilirubin [Mass/Vol] 0.8 mg/dL [facility] Bilirubin.direct [Mass/Vol] 0.1 mg/dL [facility] Protein [Mass/Vol] 7.8 g/dL [facility] INFLUENZA A AND B, PCRon FLUAV and FLUBV Ag IF Nom (Unsp spec) Negative NEGATIVE [facility] FLUBV Ag IA Ql (Unsp spec) Negative NEGATIVE [facility] Comment on above: TESTING PERFORMED BY GISSELLE [facility] NOVEL CORONAVIRUS LAB 1 - NA SOPHARYNGEALon 01-03-2022 NARRATIVE -1 This test was perfor med using isothermal GISSELLE and has been approved as Emergency Use Authorization (EUA) for the qualitative detection [id number] nucleic acid. [facility] SARS-CoV-2 (COVID-19) RNA GISSELLE+probe Ql (Unsp spec) Not detected NOT DETECTED [facility] Comment on above: Negative results do not preclude SARS-CoV-2 infection and should not be used as the sole basis for treatment or other patient management decisions. Optimum specimen types and timing for peak viral levels during infections caused by SARS-CoV-2 has not been determined. The possibility of a false negative result should especially be considered if the patient's recent exposures or clinical presentation suggest that SARS-CoV-2 infection is probable, and diagnostic tests for other causes of illness (e.g., other respiratory illness) are negative. Collection of a new specimen and re-testing may be necessary if the patient is critically ill or clinically deteriorating. [facility] No Panel Informationon 01-03 Interpretation and review of laboratory results Abnormal [facility] URINALYSIS, MACROon 01-04-20 22 Bilirubin Ql (U) Negative NEGATIVE [facility] Clarity (U) CLEAR CLEAR [facility] Color (U) YELLOW YELLOW [facility] Glucose Test strip (U) [Mass/Vol] Negative NEGATIVE mg/dl [facility] Hemoglobin Ql (U) TRACE-INTACT Abnormal NEGATIVE [facility] Ketones (U) [Mass/Vol] Negative NEGATIVE mg/dl [facility] Leukocyte esterase Test strip Ql (U) TRACE Abnormal NEGATIVE [facility] Nitrite Ql (U) Negative NEGATIVE [facility] pH (U) 6.5 [pH] 5.0 - 7.0 [facility] Protein Ql (U) Negative NEGATIVE mg/dl [facility] Specific gravity (U) [Rel density] 1.015 1.010 - 1.025 [facility] Urobilinogen (U) [Mass/Vol] 0.2 mg/dL [facility] URINE MICROSCOPICon 01-04-20 22 Bacteria LM.HPF (Urine sed) [#/Area] TRACE Abnormal NEGATIVE [facility] Casts LM.LPF (Urine sed) [#/Area] NONE NONE /LPF [facility] Crystals LM Nom (Urine sed) NONE NONE [facility] Epithelial cells LM Ql (Urine sed) 5 TO 10 /HPF [facility] Mucus Ql (Urine sed) Negative NEGATIVE [facility] RBC LM.HPF (Urine sed) [#/Area] Negative NEGATIVE /HPF [facility] Urine sediment comments LM Surinder (Urine sed) CULTURE CRITERIA NOT MET, NO CULTURE PERFORMED. [facility] WBC LM.HPF (Urine sed) [#/Area] 1 TO 5 NEGATIVE /HPF [facility] POC Urinalysis Dipstick, Aut oon 12-05-2021 Bilirubin Ql (U) Negative Negative [facility] Glucose Ql (U) Negative Normal, Negative mg/dL [facility] Hemoglobin Ql (U) Trace-intact Abnormal Negative [facility] Interpretation and review of laboratory results Abnormal [facility] Ketones Ql (U) Negative Negative mg/dL [facility] alth Leukocyte esterase Test strip Ql (U) Negative Negative [facility] Nitrite Ql (U) Negative Negative [facility] pH (U) 6.0 [pH] 5 - 7 [facility] Protein Ql (U) Negative Negative mg/dL [facility] alth Specific gravity (U) [Rel density] 1.030 Abnormal 1.005 - 1.025 [facility] Urobilinogen Qn (U) 0.2 mg/dL <2.0, 0. 2, Normal, Negative, 1.0, 2.0, <1.0 [facility] POCT INFLUENZA, A Bon 2020 FLUAV RNA GISSELLE+probe Ql (Unsp spec) Negative [facility] FLUBV RNA GISSELLE+probe Ql (Unsp spec) Negative [facility] Interpretation and review of laboratory results Normal [facility] Indicator ok [facility] POCT URINALYSIS DIPSTICK AUT OMATED W/O SCOPOrdered By: Milton Leos on 08-08-2020 Amorphous sediment LM Ql (Urine sed) [facility] Appearance (U) cloudy [facility] Bacteria LM Ql (Urine sed) [facility] Bilirubin Ql (U) 1+ [facility] Casts LM.LPF (Urine sed) [#/Area] [facility] Color (U) dark yellow [facility] Crystals LM Nom (Urine sed) [facility] Epithelial cells.squamous LM.HPF (Urine sed) [#/Area] [facility] Flow cytometry specialist review Surinder (Unsp spec) [Interp] [facility] Glucose Auto test strip (U) [Mass/Vol] Negative mg/dL [facility] Interpretation and review of laboratory results Abnormal [facility] Ketones [Mass/Vol] Negative mg/dL [facility] Leukocyte esterase Qn (U) [facility] Leukocyte esterase Test strip Ql (U) 3+ [facility] Nitrite Ql (U) Negative [facility] pH (U) 6.0 [pH] [facility] Protein Ql (U) 2+ mg/dL [facility] RBC LM.HPF (Urine sed) [#/Area] [facility] RBC Ql (U) 3+ [facility] Specific gravity (U) [Rel density] 1.030 [facility] Transitional cells LM Ql (Urine sed) [facility] Urobilinogen Qn (U) 0.2 [facility] WBC LM.HPF (Urine sed) [#/Area] [facility] Basic metabolic 2000 panelOr dered By: Pedro Siddiqui on 06-17-2020 Anion gap [Moles/Vol] 7 mmol/L Low 10 - 20 mmol/L [facility] Calcium [Mass/Vol] 8.7 mg/dL 8.4 - 10. 2 mg/dL [facility] Chloride [Moles/Vol] 108 mmol/L 98 - 10 8 mmol/L [facility] Creatinine [Mass/Vol] 0.83 mg/dL 0.50 - 1.00 [facility] Glucose [Mass/Vol] 87 mg/dL 65 - 99 mg/dL [facility] HCO3 [Moles/Vol] 27 mmol/L 21 - 32 mmol/L [facility] Potassium [Moles/Vol] 3.9 mmol/L 3.5 - 5.1 mmol/L [facility] Sodium [Moles/Vol] 138 mmol/L 135 - 145 mmol/L [facility] Urea nitrogen [Mass/Vol] 5 mg/dL Low 8 - 25 mg/dL [facility] Urea nitrogen/Creatinine [Mass ratio] 6.0 mg/mg Low [facility] The eGFR should be u sed for monitoring renal function only and not for medication dosing. [facility] CBC WITH AUTO DIFFERENTIALOr dered By: Pedro Siddiqui on 06-17-2020 Basophils (Bld) [#/Vol] 0.03 10*3/uL [facility] Basophils/100 WBC (Bld) 0.7 % [facility] Eosinophils (Bld) [#/Vol] 0.07 10*3/uL [facility] Eosinophils/100 WBC (Bld) 1.6 % [facility] Erythrocyte distribution width (RBC) [Entitic vol] 13.2 % 11.6 - 14.8 % [facility] Hematocrit (Bld) [Volume fraction] 37.7 % 36.0 - 46.0 % [facility] Hemoglobin (Bld) [Mass/Vol] 12.8 g/dL 12.0 - 16.0 g/dL [facility] Immature granulocytes (Bld) [#/Vol] 0.00 10*3/uL [facility] Immature granulocytes/100 WBC (Bld) 0.00 % [facility] Comment on above: The IG parameter is the percentage of metamyelocytes, myelocytes and promyelocytes. An immature granulocyte count (IG) of 1% or more suggests the possibility of infection, an IG count of 3% is very likely related to an infection. Lymphocytes (Bld) [#/Vol] 2.07 10*3/uL [facility] Lymphocytes/100 WBC (Bld) 45.9 % [facility] MCH (RBC) [Entitic mass] 29.8 pg 25.0 - 35.0 pg [facility] MCHC (RBC) [Mass/Vol] 34.0 g/dL 31.0 - 37.0 g/dL [facility] MCV (RBC) [Entitic vol] 87.9 fL 78.0 - 102.0 fL [facility] Monocytes (Bld) [#/Vol] 0.36 10*3/uL [facility] Monocytes/100 WBC (Bld) 8.0 % [facility] Neutrophils (Bld) [#/Vol] 1.98 10*3/uL [facility] Neutrophils/100 WBC (Bld) 43.8 % [facility] Platelet mean volume (Bld) [Entitic vol] 9.5 fL 9.4 - 12.4 fL [facility] Platelets (Bld) [#/Vol] 265 10*3/uL [facility] RBC (Bld) [#/Vol] 4.29 10*6/uL [facility] ealth WBC (Bld) [#/Vol] 4.51 10*3/uL [facility] ealt CT Abdomen Pelvis Without Co ntrastOrdered By: Pedro Siddiqui on 06-17-2020 No acute findings to account for patient's symptoms. Mild diffuse colonic stool without bowel obstruction. Bilateral nephrolithiasis without obstructive uropathy. Prior appendectomy. [employer] Workstation ID: [id number] [facility] EXAMINATION: CT ABDO MEN PELVIS WITHOUT CONTRAST HISTORY: ORDERING SYSTEM PROVIDED HISTORY: Abdominal pain, acute (Ped 0-18y), TECHNOLOGIST PROVIDED HISTORY: Illness/Other Reason for exam: constipation, no bowel movement in 3 wks Encounter Type: Ongoing Additional signs and symptoms: abdominal pain, nausea ORDERING SYSTEM PROVIDED DIAGNOSIS CODES: COMPARISON: 12/14/2018 CT. TECHNIQUE: CT examination of the abdomen and pelvis without IV contrast. Coronal and sagittal reformations were performed. Dose reduction techniques were achieved by using automated exposure control and/or adjustment of mA and/or kV according to patient size and/or use of iterative reconstruction technique. FINDINGS: LOWER CHEST: Normal. ABDOMEN: Liver: Normal. Bile ducts: Normal caliber. Gallbladder: No calcified gallstones. Normal caliber wall. Pancreas: Normal. Spleen: Normal. Adrenals: Normal. Kidneys: No hydronephrosis, at least 3 nonobstructing right renal calculi measuring up to 2 mm. Single nonobstructing left renal calculus measuring up to 3 mm. PELVIS: Reproductive organs: No pelvic masses. Ureters: Normal. Bladder: Normal. OTHER ABDOMEN AND PELVIS: Bowel: Mild diffuse colonic stool without bowel obstruction. Prior appendectomy. Peritoneum: No free intraperitoneal air. Small amount of free fluid in the pelvis. Vessels: Normal. Lymph nodes: No enlarged lymph nodes. Abdominal wall: Normal. Osseous structures: No destructive lesions. [facility] Interface, Rad In Fu ji Speechq - 06/17/2020 6:13 PM EDT EXAMINATION: CT ABDOMEN PELVIS WITHOUT CONTRAST HISTORY: ORDERING SYSTEM PROVIDED HISTORY: Abdominal pain, acute (Ped 0-18y), TECHNOLOGIST PROVIDED HISTORY: Illness/Other Reason for exam: constipation, no bowel movement in 3 wks Encounter Type: Ongoing Additional signs and symptoms: abdominal pain, nausea ORDERING SYSTEM PROVIDED DIAGNOSIS CODES: COMPARISON: 12/14/2018 CT. TECHNIQUE: CT examination of the abdomen and pelvis without IV contrast. Coronal and sagittal reformations were performed. Dose reduction techniques were achieved by using automated exposure control and/or adjustment of mA and/or kV according to patient size and/or use of iterative reconstruction technique. FINDINGS: LOWER CHEST: Normal. ABDOMEN: Liver: Normal. Bile ducts: Normal caliber. Gallbladder: No calcified gallstones. Normal caliber wall. Pancreas: Normal. Spleen: Normal. Adrenals: Normal. Kidneys: No hydronephrosis, at least 3 nonobstructing right renal calculi measuring up to 2 mm. Single nonobstructing left renal calculus measuring up to 3 mm. PELVIS: Reproductive organs: No pelvic masses. Ureters: Normal. Bladder: Normal. OTHER ABDOMEN AND PELVIS: Bowel: Mild diffuse colonic stool without bowel obstruction. Prior appendectomy. Peritoneum: No free intraperitoneal air. Small amount of free fluid in the pelvis. Vessels: Normal. Lymph nodes: No enlarged lymph nodes. Abdominal wall: Normal. Osseous structures: No destructive lesions. IMPRESSION: No acute findings to account for patient's symptoms. Mild diffuse colonic stool without bowel obstruction. Bilateral nephrolithiasis without obstructive uropathy. Prior appendectomy. ST/jcw Workstation ID: [id number] [facility] HCG ( test) Ql (U)O rdered By: Pedro Siddiqui on 06-17-2020 Interpretation and review of laboratory results Normal [facility] Hepatic function 2000 panelO rdered By: Pedro Siddiqui on 06-17-2020 Albumin [Mass/Vol] 3.7 g/dL 3.2 - 4.5 g/dL [facility] ALP [Catalytic activity/Vol] 155 U/L High 40 - 140 U/L [facility] ALT [Catalytic activity/Vol] 17 U/L 14 - 65 U/L [facility] AST [Catalytic activity/Vol] 14 U/L 0 - 45 U/L [facility] Bilirubin [Mass/Vol] 0.4 mg/dL 0.0 - 1 .3 mg/dL [facility] Bilirubin.conjugated [Mass/Vol] 0.2 mg/dL 0.0 - 0.4 mg/dL [facility] Protein [Mass/Vol] 6.9 g/dL 6.0 - 8.0 g/dL [facility] LipaseOrdered By: Pedro atkinson on 06-17-2020 Lipase [Catalytic activity/Vol] 66 U/L Low 73 - 393 U/L [facility] No Panel InformationOrdered By: Pedro Siddiqui on 06-17-2020 Interpretation and review of laboratory results Abnormal [facility] URINALYSISOrdered By: Pedro Siddiqui on 06-17-2020 Bacteria Auto Ql (U) Rare Abnormal None Seen /hpf [facility] Clarity Refractometry automated (U) Clear Clear [facility] Color (U) Yellow Colorless, Yellow [facility] Glucose Auto test strip (U) [Mass/Vol] Negative Negative mg/dL [facility] Ketones (U) [Mass/Vol] Negative Negative mg/dL [facility] Leukocyte esterase Auto test strip Ql (U) Negative Negative [facility] pH (U) 7.5 [pH] High [facility] Specific gravity (U) [Rel density] 1.020 [facility] UrinalysisOrdered By: Pedro Siddiqui on 06-17-2020 Bilirubin Ql (U) Negative Negative [facility] th Epithelial cells.squamous Auto (Urine sed) [#/Area] 3 [facility] Hemoglobin Auto test strip Ql (U) Small Abnormal Negative [facility] Interpretation and review of laboratory results Abnormal [facility] Nitrite Auto test strip Ql (U) Negative Negative [facility] Protein (U) [Mass/Vol] Negative Negative mg/dL [facility] Urobilinogen (U) [Mass/Vol] mg/dL <2.0 mg/dL [facility] WBC Auto (Urine sed) [#/Area] 2 [facility] Microscopic examinat ion is performed on all urinalysis samples and only positive findings are reported. The test for blood on the chemical analytic portion of urinalysis may also be positive due to hemoglobinuria and myoglobinuria and if red blood cells are present they are quantified by microscopic examination. [facility] Urine PregnancyOrdered By: Tala Siddiqui on 06-17-2020 HCG ( test) Ql (U) Negative Negative [facility] BMPon 05-18-2020 Anion gap [Moles/Vol] 10 mmol/L 10 - 20 mmol/L [facility] Calcium [Mass/Vol] 8.9 mg/dL 8.4 - 10. 2 mg/dL [facility] Chloride [Moles/Vol] 107 mmol/L 98 - 10 8 mmol/L [facility] Creatinine [Mass/Vol] 0.83 mg/dL 0.50 - 1.00 [facility] GFR/1.73 sq M predicted among non-blacks MDRD (S/P/Bld) [Vol rate/Area] The eGFR should be used for monitoring renal function only and not for medication dosing. [facility] Glucose [Mass/Vol] 103 mg/dL High 65 - 99 mg/dL [facility] HCO3 [Moles/Vol] 27 mmol/L 21 - 32 mmol/L [facility] Potassium [Moles/Vol] 3.7 mmol/L 3.5 - 5.1 mmol/L [facility] Sodium [Moles/Vol] 140 mmol/L 135 - 145 mmol/L [facility] Urea nitrogen [Mass/Vol] 15 mg/dL 8 - 25 mg/dL [facility] Urea nitrogen/Creatinine [Mass ratio] 18.1 mg/mg [facility] Hepatic Function Panel (LFT) on 05-18-2020 Albumin [Mass/Vol] 3.7 g/dL 3.2 - 4.5 g/dL [facility] ALP [Catalytic activity/Vol] 153 U/L High 40 - 140 U/L [facility] ALT [Catalytic activity/Vol] 16 U/L 14 - 65 U/L [facility] AST [Catalytic activity/Vol] 15 U/L 0 - 45 U/L [facility] Bilirubin [Mass/Vol] 0.3 mg/dL 0.0 - 1 .3 mg/dL [facility] Bilirubin.conjugated [Mass/Vol] mg/dL 0.0 - 0.4 mg/dL [facility] Protein [Mass/Vol] 7.0 g/dL 6.0 - 8.0 g/dL [facility] Lipaseon 05-18-2020 Interpretation and review of laboratory results Normal [facility] Lipase [Catalytic activity/Vol] 107 U/L 73 - 393 U/L [facility] Otheron 05-18-2020 Interpretation and review of laboratory results Abnormal [facility] TROPONINon 05-18-2020 Troponin I.cardiac [Mass/Vol] ng/mL <=45 ng/L [facility] Troponin I.cardiac [Mass/Vol] Normal [facility] XR Chest 1 Viewon 05-18-2020 Interface, Rad In Fu ji Speechq - 05/18/2020 12:20 AM EDT EXAMINATION: XR CHEST PA/AP: HISTORY: ORDERING SYSTEM PROVIDED HISTORY: chest pain, TECHNOLOGIST PROVIDED HISTORY: Illness/Other Reason for exam: chest pain Cancer History: u Surgery, RadiationHistory: u Encounter Type: Initial Additional signs and symptoms: Hx of anxiety, POTS ORDERING SYSTEM PROVIDED DIAGNOSIS CODES: chest pain. COMPARISON: 12/03/2017. TECHNIQUE: AP chest x-ray. FINDINGS: Cardiac size appears within normal limits. Trachea is midline. No mediastinal widening. Lungs appear clear. No pneumothorax or effusion is identified. Osseous structures appear intact. IMPRESSION: No acute cardiopulmonary process identified. Workstation ID: [id number] [facility] EXAMINATION: XR CHES T PA/AP: HISTORY: ORDERING SYSTEM PROVIDED HISTORY: chest pain, TECHNOLOGIST PROVIDED HISTORY: Illness/Other Reason for exam: chest pain Cancer History: u Surgery, RadiationHistory: u Encounter Type: Initial Additional signs and symptoms: Hx of anxiety, POTS ORDERING SYSTEM PROVIDED DIAGNOSIS CODES: chest pain. COMPARISON: 12/03/2017. TECHNIQUE: AP chest x-ray. FINDINGS: Cardiac size appears within normal limits. Trachea is midline. No mediastinal widening. Lungs appear clear. No pneumothorax or effusion is identified. Osseous structures appear intact. [facility] No acute cardiopulmo nary process identified. Workstation ID: [id number] [facility] CBC WITH AUTO DIFFERENTIALon 05-17-2020 Basophils (Bld) [#/Vol] 0.02 10*3/uL [facility] Basophils/100 WBC (Bld) 0.3 % [facility] Eosinophils (Bld) [#/Vol] 0.07 10*3/uL [facility] Eosinophils/100 WBC (Bld) 1.0 % [facility] Erythrocyte distribution width (RBC) [Entitic vol] 12.8 % 11.6 - 14.8 % [facility] Hematocrit (Bld) [Volume fraction] 36.8 % 36.0 - 46.0 % [facility] Hemoglobin (Bld) [Mass/Vol] 12.6 g/dL 12.0 - 16.0 g/dL [facility] Immature granulocytes (Bld) [#/Vol] 0.02 10*3/uL [facility] Immature granulocytes/100 WBC (Bld) 0.30 % [facility] Comment on above: The IG parameter is the percentage of metamyelocytes, myelocytes and promyelocytes. An immature granulocyte count (IG) of 1% or more suggests the possibility of infection, an IG count of 3% is very likely related to an infection. Interpretation and review of laboratory results Abnormal [facility] Lymphocytes (Bld) [#/Vol] 2.71 10*3/uL [facility] Lymphocytes/100 WBC (Bld) 40.1 % [facility] MCH (RBC) [Entitic mass] 29.7 pg 25.0 - 35.0 pg [facility] MCHC (RBC) [Mass/Vol] 34.2 g/dL 31.0 - 37.0 g/dL [facility] MCV (RBC) [Entitic vol] 86.8 fL 78.0 - 102.0 fL [facility] Monocytes (Bld) [#/Vol] 0.55 10*3/uL [facility] Monocytes/100 WBC (Bld) 8.1 % [facility] Neutrophils (Bld) [#/Vol] 3.39 10*3/uL [facility] Neutrophils/100 WBC (Bld) 50.2 % [facility] Platelet mean volume (Bld) [Entitic vol] 9.3 fL Low 9.4 - 12.4 fL [facility] Platelets (Bld) [#/Vol] 271 10*3/uL [facility] RBC (Bld) [#/Vol] 4.24 10*6/uL [facility] eah WBC (Bld) [#/Vol] 6.76 10*3/uL [facility]-DIMER, QUANTITATIVEon 05-02 Fibrin D-dimer FEU (PPP) [Mass/Vol] 0.37 0.27 - 0.49 mcg/mL FEU [facility] Interpretation and review of laboratory results Normal [facility] This normal referenc e range has been established for adults ( greater than or equal to 18 years old). The normal range for children and infants may differ from the adult normal range. A D-dimer concentration of <0.5 micrograms per milliliter FEU is considered a low probability for pulmonary embolus (PE) and deep venous thrombosis (DVT). Results of this test should always be interpreted in conjunction with the patient's medical history,clinical presentation, and other findings. Clinical diagnosis should not be based on the results of the D-dimer alone. [facility] ECG 12-LEADon 05-17-2020 Richar Hurtado MD 05/18/2020 12:40 AM EKG 12-lead Date/Time: 05/17/2020 11:38 PM Performed by: Richar Hurtado MD Authorized by: Richar Hurtado MD BPM: 51 Comments: Sinus bradycardia, otherwise normal EKG. [facility] POCT URINALYSIS DIPSTICK AUT OMATED W/O SCOPon 03-15-2020 Amorphous sediment LM Ql (Urine sed) [facility] Appearance (U) [facility] Bacteria LM Ql (Urine sed) [facility] Bilirubin Ql (U) 1+ [facility] Casts LM.LPF (Urine sed) [#/Area] [facility] Color (U) [facility] Crystals LM Nom (Urine sed) [facility] Epithelial cells.squamous LM.HPF (Urine sed) [#/Area] [facility] Flow cytometry specialist review Surinder (Unsp spec) [Interp] [facility] Glucose Auto test strip (U) [Mass/Vol] Negative mg/dL [facility] Interpretation and review of laboratory results Abnormal [facility] Ketones [Mass/Vol] 1+ mg/dL [facility] Leukocyte esterase Qn (U) [facility] Leukocyte esterase Test strip Ql (U) Negative [facility] Nitrite Ql (U) Negative [facility] pH (U) 6.0 [pH] [facility] Protein Ql (U) 2+ mg/dL [facility] RBC LM.HPF (Urine sed) [#/Area] [facility] RBC Ql (U) 2+ [facility] Specific gravity (U) [Rel density] 1.025 [facility] Transitional cells LM Ql (Urine sed) [facility] Urobilinogen Qn (U) 0.2 [facility] WBC LM.HPF (Urine sed) [#/Area] [facility] POCT URINALYSIS DIPSTICK AUT OMATED W/O SCOPon 02-15-2020 Amorphous sediment LM Ql (Urine sed) [facility] Appearance (U) [facility] Bacteria LM Ql (Urine sed) [facility] Bilirubin Ql (U) 1+ [facility] Casts LM.LPF (Urine sed) [#/Area] [facility] Color (U) [facility] Crystals LM Nom (Urine sed) [facility] Epithelial cells.squamous LM.HPF (Urine sed) [#/Area] [facility] Flow cytometry specialist review Surinder (Unsp spec) [Interp] [facility] Glucose Auto test strip (U) [Mass/Vol] Negative mg/dL [facility] Interpretation and review of laboratory results Abnormal [facility] Ketones [Mass/Vol] 2+ mg/dL [facility] Leukocyte esterase Qn (U) [facility] Leukocyte esterase Test strip Ql (U) Negative [facility] Nitrite Ql (U) Negative [facility] pH (U) 6.0 [pH] [facility] Protein Ql (U) 2+ mg/dL [facility] RBC LM.HPF (Urine sed) [#/Area] [facility] RBC Ql (U) 2+ [facility] Specific gravity (U) [Rel density] >=1.030 [facility] Transitional cells LM Ql (Urine sed) [facility] Urobilinogen Qn (U) 0.2 [facility] WBC LM.HPF (Urine sed) [#/Area] [facility] POCT URINALYSIS DIPSTICK AUT OMATED W/O SCOPon 02-03-2020 Amorphous sediment LM Ql (Urine sed) [facility] Appearance (U) Cloudy [facility] Bacteria LM Ql (Urine sed) [facility] Bilirubin Ql (U) 3+ [facility] Casts LM.LPF (Urine sed) [#/Area] [facility] Color (U) Red [facility] Crystals LM Nom (Urine sed) [facility] Epithelial cells.squamous LM.HPF (Urine sed) [#/Area] [facility] Flow cytometry specialist review Surinder (Unsp spec) [Interp] [facility] Glucose Auto test strip (U) [Mass/Vol] Negative mg/dL [facility] Interpretation and review of laboratory results Abnormal [facility] Ketones [Mass/Vol] 1+ mg/dL [facility] Leukocyte esterase Qn (U) [facility] Leukocyte esterase Test strip Ql (U) 3+ [facility] Nitrite Ql (U) Positive [facility] pH (U) 6.0 [pH] [facility] Protein Ql (U) 3+ mg/dL [facility] RBC LM.HPF (Urine sed) [#/Area] [facility] RBC Ql (U) 3+ [facility] Specific gravity (U) [Rel density] 1.025 [facility] Transitional cells LM Ql (Urine sed) [facility] Urobilinogen Qn (U) 4.0 Abnormal [facility] WBC LM.HPF (Urine sed) [#/Area] [facility] [place] VISUAL SCREENING TEST, BI LATon 12-17-2019 Milton Leos MD 12/17/2019 10:21 AM [place] VISUAL SCREENING TEST, BILAT Performed by: Milton Leos MD Authorized by: Milton Leos MD [place] Protocol Immediately prior to procedure a time out was called to verify the correct patient, procedure, equipment, application support engineer and site/side marked as required. Additional Notes Vision normal, see screenings tab [facility] POC , Urineon 10-13 HCG ( test) Ql (U) Negative Negative [facility] Internal Control Pass [facility] XR OR Knee Right 1-2 Viewson 10-14-2019 1. Intraoperative fluoroscopy. See operative report for procedure description. 2. Sharir mGy: Fluoro dose in Ka,r mGy: 32.53 Workstation ID: [id number] [facility] EXAMINATION: XR OR K NEE RIGHT 1-2 VIEWS HISTORY: ORDERING SYSTEM PROVIDED HISTORY: tibial tubercle osteotomy, TECHNOLOGIST PROVIDED HISTORY: Illness/Other Reason for exam: tibial tubercle osteotomy Encounter Type: Initial Additional signs and symptoms: . 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 [facility] Interface, Rad In Fu ji Speechq - 10/14/2019 12:43 PM EDT EXAMINATION: XR OR KNEE RIGHT 1-2 VIEWS HISTORY: ORDERING SYSTEM PROVIDED HISTORY: tibial tubercle osteotomy, TECHNOLOGIST PROVIDED HISTORY: Illness/Other Reason for exam: tibial tubercle osteotomy Encounter Type: Initial Additional signs and symptoms: . 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 IMPRESSION: 1. Intraoperative fluoroscopy. See operative report for procedure description. 2. Ka,r mGy: Fluoro dose in Shari,r mGy: 32.53 Workstation ID: [id number] [facility] COVID-19, MOLECULARon 2019 SARS-COV-2 RNA (DOUG) Not Detected Normal Not Detected [facility] Comment on above: Result Comment: This test was performed under the FDA's Emergency Use Authorization (EUA). Testing was performed using the Blake SARS-CoV-2 assay on the [employer] Blake 6800 System. This test has not been approved for use in asymptomatic patients and its performance in this patient population has not been evaluated. Negative results do not rule out the presence of SARS-CoV-2/COVID-19. Fact sheets for this EUA can be found at the following links: For Healthcare Providers: https://www.fda.gov/media/231146/download For Patients: https://www.fda.gov/media/301963/download Performed By: #### L [id number] #### [facility] [address] [place] [address] Dhiraj Ojeda M.D. [id number] POCT URINALYSIS DIPSTICK AUT OMATED W/O SCOPon 06-11-2019 Amorphous sediment LM Ql (Urine sed) [facility] Appearance (Body fld) clear [facility] Bacteria LM Ql (Urine sed) [facility] Bilirubin Ql (U) Negative [facility] Casts LM.LPF (Urine sed) [#/Area] [facility] Color (U) yellow [facility] Crystals LM Nom (Urine sed) [facility] Epithelial cells.squamous LM.HPF (Urine sed) [#/Area] [facility] Flow cytometry specialist review Surinder (Unsp spec) [Interp] [facility] Interpretation and review of laboratory results Abnormal [facility] Ketones [Mass/Vol] Negative mg/dL [facility] Leukocyte esterase Qn (U) [facility] Leukocyte esterase Test strip Ql (U) trace [facility] Nitrite Ql (U) Negative [facility] pH (U) 6.0 [pH] [facility] POCT GLUCOSE, URINE Negative mg/dL [facility] Protein Ql (U) 1+ mg/dL [facility] RBC LM.HPF (Urine sed) [#/Area] [facility] RBC Ql (U) trace-intact [facility] Specific gravity (U) [Rel density] 1.025 [facility] Transitional cells LM Ql (Urine sed) [facility] Urobilinogen (U) [Mass/Vol] 0.2 [facility] WBC LM.HPF (Urine sed) [#/Area] [facility] Otheron 05-19-2019 Interpretation and review of laboratory results Abnormal [facility] POC Basic Metabolic Panelon 05-19-2019 Calcium.ionized (Bld) [Mass/Vol] 4.6 mg/dL 4.5 - 5.3 mg/dL [facility] Chloride [Moles/Vol] 105 mmol/L 98 - 10 8 mmol/L [facility] CO2 [Moles/Vol] 23 mmol/L 21 - 32 mmol/L [facility] Creatinine [Mass/Vol] 0.54 mg/dL 0.50 - 1.00 [facility] Glucose [Mass/Vol] 107 mg/dL High 65 - 99 mg/dL [facility] Potassium [Moles/Vol] 4.2 mmol/L 3.5 - 5.1 mmol/L [facility] Sodium [Moles/Vol] 138 mmol/L 135 - 145 mmol/L [facility] Urea nitrogen [Mass/Vol] 14 mg/dL 8 - 25 mg/dL [facility] POC CBC and Differentialon 0 05-19-2019 Erythrocyte distribution width (RBC) [Entitic vol] 13.1 % 11.6 - 14.8 % [facility] Hematocrit (Bld) [Volume fraction] 41.5 % 36 - 46 % [facility] Hemoglobin (Bld) [Mass/Vol] 14.6 g/dL 12 - 16 g/dL [facility] Interpretation and review of laboratory results Abnormal [facility] Lymphocytes (Bld) [#/Vol] 0.5 10*3/uL Low [facility] Lymphocytes/100 WBC (Bld) 5.0 % [facility] MCH (RBC) [Entitic mass] 31.3 pg 25 - 35 pg [facility] MCHC (RBC) [Mass/Vol] 35.2 g/dL 31 - 37 g/dL [facility] MCV (RBC) [Entitic vol] 89.1 fL 78 - 102 fL [facility] Mixed 3.6 % [facility] Mixed Abs 0.3 K/mcl [facility] Neutrophil Abs 8.4 High [facility] Neutrophils/100 WBC (Bld) 91.4 % [facility] Platelet mean volume (Bld) [Entitic vol] 9.5 fL 9 - 15.5 fL [facility] Platelets (Bld) [#/Vol] 309 10*3/uL [facility] RBC (Bld) [#/Vol] 4.66 10*6/uL [facility] WBC (Bld) [#/Vol] 9.20 10*3/uL [facility] P[facility] Liver Panel Pluson 05-18 Albumin [Mass/Vol] 3.7 g/dL 3.2 - 4.5 g/dL [facility] ALP [Catalytic activity/Vol] 99 U/L Low 110 - 630 U/L [facility] ALT [Catalytic activity/Vol] 19 U/L 0 - 40 U/L [facility] Amylase [Catalytic activity/Vol] 56 U/L 25 - 115 U/L [facility] AST [Catalytic activity/Vol] 28 U/L 0 - 45 U/L [facility] Bilirubin [Mass/Vol] 0.8 mg/dL 0 - 1.3 mg/dL [facility] Gamma glutamyl transferase [Catalytic activity/Vol] 8 U/L 7 - 33 U/L [facility] Interpretation and review of laboratory results Abnormal [facility] Protein [Mass/Vol] 7.2 g/dL 6 - 8 g/dL [facility] alth POC Urinalysis Dipstick, Aut oon 05-19-2019 Bilirubin Ql (U) Negative Negative [facility] Glucose Ql (U) Negative Negative mg/dL [facility]th Hemoglobin Ql (U) Negative Negative [facility] Ketones Ql (U) 80 Abnormal Negative mg/dL [facility]th Leukocyte esterase Test strip Ql (U) Negative Negative [facility] Nitrite Ql (U) Negative Negative [facility] pH (U) 6.0 [pH] [facility] Protein Ql (U) Negative Negative mg/dL [facility] alth Specific gravity (U) [Rel density] >=1.030 High [facility] Urobilinogen Qn (U) 0.2 mg/dL <2.0 [facility] C REACTIVE PROTEINon 020 CRP [Mass/Vol] 5.6 mg/L 0 - 10 MG/L [facility] Comment on above: Testing performed at [place] [address] RHEUMATOID FACTORon 04-06-19 20 RHEUMATOID FACTOR <8.6 <12 Iu/mL [facility] SEDIMENTATION RATE, AUTOMATE Don 04-06-2019 ESR (Bld) [Velocity] 12 mm/h [facility] Comment on above: Testing performed at [place] [address] TSHon 04-06-2019 TSH Qn 1.410 m[IU]/L [facility] Comment on above: Testing performed at [place] [address] CBC WITH AUTO DIFFERENTIALon 03-23-2019 Basophils (Bld) [#/Vol] 0.03 10*3/uL [facility] Basophils/100 WBC (Bld) 0.5 % [facility] Eosinophils (Bld) [#/Vol] 0.07 10*3/uL [facility] Eosinophils/100 WBC (Bld) 1.2 % [facility] Erythrocyte distribution width (RBC) [Entitic vol] 12.2 % 11.6 - 14.8 % [facility] Hematocrit (Bld) [Volume fraction] 34.6 % Low 36 - 46 % [facility] Hemoglobin (Bld) [Mass/Vol] 12.0 g/dL 12 - 16 g/dL [facility] Immature granulocytes (Bld) [#/Vol] 0.03 10*3/uL [facility] Immature granulocytes/100 WBC (Bld) 0.50 % [facility] Comment on above: The IG parameter is the percentage of metamyelocytes, myelocytes, and promyelocytes. Interpretation and review of laboratory results Abnormal [facility] Lymphocytes (Bld) [#/Vol] 1.88 10*3/uL [facility] Lymphocytes/100 WBC (Bld) 33.3 % [facility] MCH (RBC) [Entitic mass] 31.0 pg 25 - 35 pg [facility] MCHC (RBC) [Mass/Vol] 34.7 g/dL 31 - 37 g/dL [facility] MCV (RBC) [Entitic vol] 89.4 fL 78 - 102 fL [facility] Monocytes (Bld) [#/Vol] 0.44 10*3/uL [facility] Monocytes/100 WBC (Bld) 7.8 % [facility] Neutrophils (Bld) [#/Vol] 3.19 10*3/uL [facility] Neutrophils/100 WBC (Bld) 56.7 % [facility] Platelet mean volume (Bld) [Entitic vol] 8.9 fL Low 9 - 15.5 fL [facility] Platelets (Bld) [#/Vol] 304 10*3/uL [facility] RBC (Bld) [#/Vol] 3.87 10*6/uL Low [facility] WBC (Bld) [#/Vol] 5.64 10*3/uL [facility] CMPon 03-23-2019 Albumin [Mass/Vol] 3.3 g/dL 3.2 - 4.5 g/dL [facility] [Catalytic activity/Vol] 139 U/L 110 - 630 U/L [facility] ALT [Catalytic activity/Vol] 22 U/L 14 - 65 U/L [facility] Anion gap [Moles/Vol] 12 mmol/L 10 - 20 mmol/L [facility] AST [Catalytic activity/Vol] 16 U/L 0 - 45 U/L [facility] Bilirubin [Mass/Vol] 0.1 mg/dL 0 - 1.3 mg/dL [facility] Calcium [Mass/Vol] 9.2 mg/dL 8.4 - 10. 2 mg/dL [facility] Chloride [Moles/Vol] 107 mmol/L 98 - 10 8 mmol/L [facility] Creatinine [Mass/Vol] 0.68 mg/dL 0.5 - 1 mg/dL [facility] GFR/1.73 sq M predicted among non-blacks MDRD (S/P/Bld) [Vol rate/Area] The eGFR should be used for monitoring renal function only and not for medication dosing. [facility] Glucose [Mass/Vol] 98 mg/dL 65 - 99 mg/dL [facility] HCO3 [Moles/Vol] 26 mmol/L 21 - 32 mmol/L [facility] Interpretation and review of laboratory results Normal [facility] Potassium [Moles/Vol] 4.5 mmol/L 3.5 - 5.1 mmol/L [facility] Protein [Mass/Vol] 7.1 g/dL 6 - 8 g/dL [facility]th Sodium [Moles/Vol] 140 mmol/L 135 - 145 mmol/L [facility] Urea nitrogen [Mass/Vol] 13 mg/dL 8 - 25 mg/dL [facility] Urea nitrogen/Creatinine [Mass ratio] 19.1 mg/mg [facility] INFLUENZA A,B RAPID MOLECULA Bob 03-23-2019 FLUAV RNA GISSELLE+probe Ql (Unsp spec) Not Detected Not Detected [facility] FLUBV RNA GISSELLE+probe Ql (Unsp spec) Not Detected Not Detected [facility] Interpretation and review of laboratory results Normal [facility] Test Method: Nucleic Acid Amplification [facility] Mononucleosis Screenon 03-23 Heterophile Ab Ql (S) Negative Negative [facility] Interpretation and review of laboratory results Normal [facility] Rapid Strep Screenon 020 Interpretation and review of laboratory results Normal [facility] Strep A Ag Negative Presumptive Negative for Group A Streptococcus [facility] CT Abdomen Pelvis With IV Co ntrast Onlyon 12-15-2018 CLINICAL HISTORY: Abdominal pain, bloody stools. EXAMINATION: ENHANCED CT SCAN OF THE ABDOMEN AND PELVIS: 12/14/2018. COMPARISON: Unenhanced CT scan of the abdomen and pelvis 12/03/2017. TECHNIQUE: 3 mm axial images from skull base through vertex without intravenous contrast were obtained. Sagittal, coronal reconstructions were performed. 75 mL of Isovue-370 was utilized as intravenous contrast. Dose reduction techniques were achieved by using automated exposure control and/or adjustment of mA and/or kV according to patient size and/or use of iterative reconstruction technique. FINDINGS: There are no focal abnormalities of the visualized lung bases. The visualized cardiac, posterior mediastinal structures appear normal. CT ABDOMEN: Liver, gallbladder, spleen, pancreas, adrenal glands, kidneys appear normal. The abdominal aorta has normal caliber. There are no abnormally dilated loops of small or large bowel. The patient has undergone previous appendectomy. CT PELVIS: Bladder, uterus, ovaries appear normal. There is no pelvic or retroperitoneal adenopathy. There are no focal fluid collections. The visualized osseous structures demonstrate no gross abnormalities. [facility] Interface, Rad In Fu ji Speechq - 12/15/2018 12:39 AM EDT CLINICAL HISTORY: Abdominal pain, bloody stools. EXAMINATION: ENHANCED CT SCAN OF THE ABDOMEN AND PELVIS: 12/14/2018. COMPARISON: Unenhanced CT scan of the abdomen and pelvis 12/03/2017. TECHNIQUE: 3 mm axial images from skull base through vertex without intravenous contrast were obtained. Sagittal, coronal reconstructions were performed. 75 mL of Isovue-370 was utilized as intravenous contrast. Dose reduction techniques were achieved by using automated exposure control and/or adjustment of mA and/or kV according to patient size and/or use of iterative reconstruction technique. FINDINGS: There are no focal abnormalities of the visualized lung bases. The visualized cardiac, posterior mediastinal structures appear normal. CT ABDOMEN: Liver, gallbladder, spleen, pancreas, adrenal glands, kidneys appear normal. The abdominal aorta has normal caliber. There are no abnormally dilated loops of small or large bowel. The patient has undergone previous appendectomy. CT PELVIS: Bladder, uterus, ovaries appear normal. There is no pelvic or retroperitoneal adenopathy. There are no focal fluid collections. The visualized osseous structures demonstrate no gross abnormalities. IMPRESSION: 1. No acute process in abdomen or pelvis to explain patient's symptoms. 2. Previous appendectomy. [employer] Workstation ID: [id number] [facility] 1. No acute process in abdomen or pelvis to explain patient's symptoms. 2. Previous appendectomy. [employer] Workstation ID: [id number] [facility] CBC WITH AUTO DIFFERENTIALon 12-14-2018 Basophils (Bld) [#/Vol] 0.04 10*3/uL [facility] Basophils/100 WBC (Bld) 0.8 % [facility] Eosinophils (Bld) [#/Vol] 0.07 10*3/uL [facility] Eosinophils/100 WBC (Bld) 1.3 % [facility] Erythrocyte distribution width (RBC) [Entitic vol] 12.1 % 11.6 - 14.8 % [facility] Hematocrit (Bld) [Volume fraction] 35.8 % Low 36 - 46 % [facility] Hemoglobin (Bld) [Mass/Vol] 12.4 g/dL 12 - 16 g/dL [facility] Immature granulocytes (Bld) [#/Vol] 0.00 10*3/uL [facility] Immature granulocytes/100 WBC (Bld) 0.00 % [facility] Comment on above: The IG parameter is the percentage of metamyelocytes, myelocytes, and promyelocytes. Interpretation and review of laboratory results Abnormal [facility] Lymphocytes (Bld) [#/Vol] 2.59 10*3/uL [facility] Lymphocytes/100 WBC (Bld) 49.4 % [facility] MCH (RBC) [Entitic mass] 31.6 pg 25 - 35 pg [facility] MCHC (RBC) [Mass/Vol] 34.6 g/dL 31 - 37 g/dL [facility] MCV (RBC) [Entitic vol] 91.1 fL 78 - 102 fL [facility] Monocytes (Bld) [#/Vol] 0.37 10*3/uL [facility] Monocytes/100 WBC (Bld) 7.1 % [facility] Neutrophils (Bld) [#/Vol] 2.17 10*3/uL [facility] Neutrophils/100 WBC (Bld) 41.4 % [facility] Nucleated RBC (Bld) [#/Vol] 0.00 10*3/uL [facility] Nucleated RBC/100 WBC (Bld) [Ratio] 0.0 % [facility] Platelet mean volume (Bld) [Entitic vol] 9.3 fL 9 - 15.5 fL [facility] Platelets (Bld) [#/Vol] 257 10*3/uL [facility] RBC (Bld) [#/Vol] 3.93 10*6/uL Low [facility] WBC (Bld) [#/Vol] 5.24 10*3/uL [facility] Chem 7on 12-14-2018 Anion gap [Moles/Vol] 10 mmol/L 10 - 20 mmol/L [facility] Chloride [Moles/Vol] 110 mmol/L High 98 - 10 8 mmol/L [facility] Creatinine [Mass/Vol] 0.78 mg/dL 0.5 - 1 mg/dL [facility] GFR/1.73 sq M predicted among non-blacks MDRD (S/P/Bld) [Vol rate/Area] The eGFR should be used for monitoring renal function only and not for medication dosing. [facility] Glucose [Mass/Vol] 92 mg/dL 65 - 99 mg/dL [facility] HCO3 [Moles/Vol] 27 mmol/L 21 - 32 mmol/L [facility] Interpretation and review of laboratory results Abnormal [facility] Potassium [Moles/Vol] 3.9 mmol/L 3.5 - 5.1 mmol/L [facility] Sodium [Moles/Vol] 143 mmol/L 135 - 145 mmol/L [facility] Urea nitrogen [Mass/Vol] 9 mg/dL 8 - 25 mg/dL [facility] Urea nitrogen/Creatinine [Mass ratio] 11.5 mg/mg [facility] Hepatic Function Panel (LFT) on 12-14-2018 Albumin [Mass/Vol] 3.3 g/dL 3.2 - 4.5 g/dL [facility] ALP [Catalytic activity/Vol] 113 U/L 110 - 630 U/L [facility] ALT [Catalytic activity/Vol] 28 U/L 14 - 65 U/L [facility] AST [Catalytic activity/Vol] 22 U/L 0 - 45 U/L [facility] Bilirubin [Mass/Vol] 0.2 mg/dL 0 - 1.3 mg/dL [facility] Bilirubin.conjugated [Mass/Vol] mg/dL 0 - 0.4 mg/dL [facility] Protein [Mass/Vol] 6.7 g/dL 6 - 8 g/dL [facility] Lipaseon 12-14-2018 Lipase [Catalytic activity/Vol] 149 U/L 73 - 393 U/L [facility] Otheron 12-14-2018 Extra Tube Hold for add-ons. [facility] Comment on above: Auto resulted. Interpretation and review of laboratory results Normal [facility] URINALYSISon 12-14-2018 Bacteria Auto Ql (U) None Seen None Seen /hpf [facility] Bilirubin Ql (U) Negative Negative [facility] th Clarity Refractometry automated (U) Hazy Abnormal Clear [facility] Color (U) Yellow Colorless, Yellow [facility] Epithelial cells.squamous Auto (Urine sed) [#/Area] 1 [facility] Glucose Auto test strip (U) [Mass/Vol] Negative Negative mg/dL [facility] Hemoglobin Auto test strip Ql (U) Moderate Abnormal Negative [facility] Interpretation and review of laboratory results Abnormal [facility] Ketones (U) [Mass/Vol] Negative Negative mg/dL [facility] Leukocyte esterase Auto test strip Ql (U) Negative Negative [facility] Mucus Auto (Urine sed) [#/Area] Rare None Seen, Rare /lpf [facility] Nitrite Auto test strip Ql (U) Negative Negative [facility] pH (U) 7.0 [pH] [facility] Protein (U) [Mass/Vol] Negative Negative mg/dL [facility] RBC Auto (Urine sed) [#/Area] 29 High [facility] Specific gravity (U) [Rel density] 1.013 [facility] Urobilinogen (U) [Mass/Vol] <2.0 <2.0 mg/dL [facility] Microscopic examinat ion is performed on all urinalysis samples and only positive findings are reported. The test for blood on the chemical analytic portion of urinalysis may also be positive due to hemoglobinuria and myoglobinuria and if red blood cells are present they are quantified by microscopic examination. [facility] Urine Pregnancyon 12-14-2018 HCG ( test) Ql (U) Negative Negative [facility] Interpretation and review of laboratory results Normal [facility] MRI SHOULDER LEFT WITHOUT CO NTRASTon 11-21-2018 IMPRESSION: 1. No evidence of labral tear or acute Hill-Sachs defect. 2. Rotator cuff tendons appear intact. 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 COMPARISON: X-rays 11/15/2018. TECHNIQUE: Multiplanar, multisequence imaging of the left shoulder without contrast. FINDINGS: No evidence of labral, rotator cuff, or biceps tendon tear. No evidence of acute Hill-Sachs defect. No joint effusion. Only trace amount of subacromial-subdeltoid bursal fluid seen. No muscle atrophy or edema. No paralabral cyst. The AC joint is maintained. 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 COMPARISON: X-rays 11/15/2018. TECHNIQUE: Multiplanar, multisequence imaging of the left shoulder without contrast. FINDINGS: No evidence of labral, rotator cuff, or biceps tendon tear. No evidence of acute Hill-Sachs defect. No joint effusion. Only trace amount of subacromial-subdeltoid bursal fluid seen. No muscle atrophy or edema. No paralabral cyst. The AC joint is maintained. IMPRESSION IMPRESSION: 1. No evidence of labral tear or acute Hill-Sachs defect. 2. Rotator cuff tendons appear intact. [facility] CBC WITH AUTO DIFFERENTIALon 09-22-2018 Basophils (Bld) [#/Vol] 0.02 10*3/uL [facility] Basophils/100 WBC (Bld) 0.4 % [facility] Eosinophils (Bld) [#/Vol] 0.05 10*3/uL [facility] Eosinophils/100 WBC (Bld) 0.9 % [facility] Erythrocyte distribution width (RBC) [Entitic vol] 11.9 % 11.6 - 14.8 % [facility] Hematocrit (Bld) [Volume fraction] 34.5 % Low 36 - 46 % [facility] Hemoglobin (Bld) [Mass/Vol] 12.0 g/dL 12 - 16 g/dL [facility] Immature granulocytes (Bld) [#/Vol] 0.01 10*3/uL [facility] Immature granulocytes/100 WBC (Bld) 0.20 % [facility] Comment on above: The IG parameter is the percentage of metamyelocytes, myelocytes, and promyelocytes. Interpretation and review of laboratory results Abnormal [facility] Lymphocytes (Bld) [#/Vol] 2.07 10*3/uL [facility] Lymphocytes/100 WBC (Bld) 38.9 % [facility] MCH (RBC) [Entitic mass] 31.4 pg 25 - 35 pg [facility] MCHC (RBC) [Mass/Vol] 34.8 g/dL 31 - 37 g/dL [facility] MCV (RBC) [Entitic vol] 90.3 fL 78 - 102 fL [facility] Monocytes (Bld) [#/Vol] 0.39 10*3/uL [facility] Monocytes/100 WBC (Bld) 7.3 % [facility] Neutrophils (Bld) [#/Vol] 2.78 10*3/uL [facility] Neutrophils/100 WBC (Bld) 52.3 % [facility] Platelet mean volume (Bld) [Entitic vol] 9.1 fL 9 - 15.5 fL [facility] Platelets (Bld) [#/Vol] 225 10*3/uL [facility] RBC (Bld) [#/Vol] 3.82 10*6/uL Low [facility] WBC (Bld) [#/Vol] 5.32 10*3/uL [facility] Mononucleosis Screenon 09-22 Heterophile Ab Ql (S) Negative Negative [facility] Interpretation and review of laboratory results Normal [facility] BMPon 06-22-2018 Anion gap molar conc 14 mmol/L 10 - 20 mmol/L [facility] Calcium mass conc 8.9 mg/dL 8.4 - 10.2 mg/dL [facility] Chloride molar conc 106 mmol/L 98 - 108 mmol/L [facility] Creatinine mass conc 0.88 mg/dL 0.5 - 1 mg/dL [facility] GFR/1.73 sq M predicted among non-blacks MDRD vol rate/area (S/P/Bld) The eGFR should be used for monitoring renal function only and not for medication dosing. [facility] Glucose mass conc 76 mg/dL 65 - 99 mg/dL [facility] HCO3 molar conc 26 mmol/L 21 - 32 mmol/L [facility] Potassium molar conc 3.8 mmol/L 3.5 - 5 .1 mmol/L [facility] Sodium molar conc 142 mmol/L 135 - 145 mmol/L [facility] Urea nitrogen mass conc 13 mg/dL 8 - 25 mg/dL [facility] Urea nitrogen/Creatinine mass ratio 14.8 mg/mg [facility] CBC WITH AUTO DIFFERENTIALon 06-22-2018 Basophils #/vol (Bld) 0.03 10*3/uL [facility] Basophils/100 WBC (Bld) 0.5 % [facility] Eosinophils #/vol (Bld) 0.05 10*3/uL [facility] Eosinophils/100 WBC (Bld) 0.8 % [facility] Erythrocyte distribution width Entitic volume (RBC) 12.3 % 11.6 - 14.8 % [facility] Hematocrit Volume Fraction (Bld) 40.1 % 36 - 46 % [facility] Hemoglobin mass conc (Bld) 13.9 g/dL 12 - 16 g/dL [facility] Immature granulocytes #/vol (Bld) 0.03 10*3/uL [facility] Immature granulocytes/100 WBC (Bld) 0.50 % [facility] Comment on above: The IG parameter is the percentage of metamyelocytes, myelocytes, and promyelocytes. Lymphocytes #/vol (Bld) 2.44 10*3/uL [facility] Lymphocytes/100 WBC (Bld) 39.4 % [facility] MCH Entitic mass (RBC) 31.0 pg 25 - 35 pg [facility] MCHC mass conc (RBC) 34.7 g/dL 31 - 37 g/dL [facility] MCV Entitic volume (RBC) 89.3 fL 78 - 102 fL [facility] Monocytes #/vol (Bld) 0.33 10*3/uL [facility] Monocytes/100 WBC (Bld) 5.3 % [facility] Neutrophils #/vol (Bld) 3.32 10*3/uL [facility] Neutrophils/100 WBC (Bld) 53.5 % [facility] Platelet mean volume Entitic volume (Bld) 9.4 fL 9 - 15.5 fL [facility] Platelets #/vol (Bld) 262 10*3/uL [facility] RBC #/vol (Bld) 4.49 10*6/uL [facility] WBC #/vol (Bld) 6.20 10*3/uL [facility] Hepatic Function Panel (LFT) on 06-22-2018 Albumin mass conc 4.4 g/dL 3.2 - 4.5 g/dL [facility] ALP enzyme act/vol 186 U/L 110 - 630 U/L [facility] ALT enzyme act/vol 18 U/L 14 - 65 U/L [facility] AST enzyme act/vol 20 U/L 0 - 45 U/L [facility] Bilirubin mass conc 0.4 mg/dL 0 - 1.3 mg/dL [facility] Bilirubin.conjugated mass conc 0.1 mg/dL 0 - 0.4 mg/dL [facility] Protein mass conc 7.6 g/dL 6 - 8 g/dL [facility] Otheron 06-22-2018 Interpretation and review of laboratory results Normal [facility] CBC WITH AUTO DIFFERENTIALon 06-16-2018 Basophils #/vol (Bld) 0.02 10*3/uL [facility] Basophils/100 WBC (Bld) 0.4 % [facility] Eosinophils #/vol (Bld) 0.05 10*3/uL [facility] Eosinophils/100 WBC (Bld) 1.0 % [facility] Erythrocyte distribution width Entitic volume (RBC) 12.3 % 11.6 - 14.8 % [facility] Hematocrit Volume Fraction (Bld) 39.0 % 36 - 46 % [facility] Hemoglobin mass conc (Bld) 13.4 g/dL 12 - 16 g/dL [facility] Immature granulocytes #/vol (Bld) 0.00 10*3/uL [facility] Immature granulocytes/100 WBC (Bld) 0.00 % [facility] Comment on above: The IG parameter is the percentage of metamyelocytes, myelocytes, and promyelocytes. Lymphocytes #/vol (Bld) 2.14 10*3/uL [facility] Lymphocytes/100 WBC (Bld) 42.9 % [facility] MCH Entitic mass (RBC) 30.8 pg 25 - 35 pg [facility] MCHC mass conc (RBC) 34.4 g/dL 31 - 37 g/dL [facility] MCV Entitic volume (RBC) 89.7 fL 78 - 102 fL [facility] Monocytes #/vol (Bld) 0.39 10*3/uL [facility] Mon[facility] WBC (Bld) 7.8 % [facility] Neutrophils #/vol (Bld) 2.39 10*3/uL [facility] Neutrophils/100 WBC (Bld) 47.9 % [facility] Platelet mean volume Entitic volume (Bld) 9.0 fL 9 - 15.5 fL [facility] Platelets #/vol (Bld) 278 10*3/uL [facility] RBC #/vol (Bld) 4.35 10*6/uL [facility] WBC #/vol (Bld) 4.99 10*3/uL [facility] Chem 7on 06-16-2018 Anion gap molar conc 9 mmol/L Low 10 - 20 mmol/L [facility] Chloride molar conc 108 mmol/L 98 - 108 mmol/L [facility] Creatinine mass conc 0.97 mg/dL 0.5 - 1 mg/dL [facility] GFR/1.73 sq M predicted among non-blacks MDRD vol rate/area (S/P/Bld) The eGFR should be used for monitoring renal function only and not for medication dosing. [facility] Glucose mass conc 86 mg/dL 65 - 99 mg/dL [facility] HCO3 molar conc 28 mmol/L 21 - 32 mmol/L [facility] Potassium molar conc 4.0 mmol/L 3.5 - 5 .1 mmol/L [facility] Sodium molar conc 141 mmol/L 135 - 145 mmol/L [facility] Urea nitrogen mass conc 17 mg/dL 8 - 25 mg/dL [facility] Urea nitrogen/Creatinine mass ratio 17.5 mg/mg [facility] Hepatic Function Panel (LFT) on 06-16-2018 Albumin mass conc 4.2 g/dL 3.2 - 4.5 g/dL [facility] ALP enzyme act/vol 191 U/L 110 - 630 U/L [facility] ALT enzyme act/vol 19 U/L 14 - 65 U/L [facility] AST enzyme act/vol 18 U/L 0 - 45 U/L [facility] alth Bilirubin mass conc 0.4 mg/dL 0 - 1.3 mg/dL [facility] Bilirubin.conjugated mass conc 0.1 mg/dL 0 - 0.4 mg/dL [facility] Protein mass conc 7.6 g/dL 6 - 8 g/dL [facility] Lipaseon 06-16-2018 Lipase enzyme act/vol 117 U/L 73 - 393 U/L [facility] Otheron 06-16-2018 Extra Tube Hold for add-ons. [facility] Comment on above: Auto resulted. Interpretation and review of laboratory results Abnormal [facility] Interpretation and review of laboratory results Normal [facility] Tissue Transglutaminase Ab I gAon 06-16-2018 Tissue Transglutaminase Ab IgA <20 Normal <20 [facility] Comment on above: Result Comment: Susie ents being evaluated for celiac disease should have a total IgA test ordered along with a tissue transglutaminase (TTG) IgA as part of initial serologic testing because IgA deficiency occurs at a higher rate in such patients compared to the general population. Patients with low or undetectable total IgA who test negative in the TTG IgA test should have a deamidated gliadin IgG ordered as an add on test (if not already ordered). As of August 24, 2013, these results were obtained by a new chemiluminescent assay and may not be used interchangeably with results generated by previous EIA methods. The magnitude of the autoantibody levels cannot always be correlated to an endpoint titer. (NOTE) <20 Negative 20-30 Weakly Positive >30 Positive Unit designation has changed to ChmU (previously U/ml), all other aspects of testing and interpretation remain the same. URINALYSISon 06-16-2018 Bacteria Auto Ql (U) Few Abnormal None Seen /hpf [facility] Bilirubin Ql (U) Negative Negative [facility] th Clarity Refractometry automated Nom (U) Cloudy Abnormal Clear [facility] Color Nom (U) Yellow Colorless, Yellow [facility] Epithelial cells.squamous Auto #/area (Urine sed) 10 High [facility] Glucose Automated test strip mass conc (U) Negative Negative mg/dL [facility] Hemoglobin Automated test strip Ql (U) Negative Negative [facility] Ketones mass conc (U) Trace Abnormal Negative mg/dL [facility] Leukocyte esterase Automated test strip Ql (U) Negative Negative [facility] Nitrite Automated test strip Ql (U) Negative Negative [facility] pH (U) 6.0 [pH] [facility] Protein mass conc (U) Negative Negative mg/dL [facility] RBC Auto #/area (Urine sed) 2 [facility] Specific gravity Relative Density (U) 1.025 [facility] Urobilinogen mass conc (U) <2.0 <2.0 mg/dL [facility] WBC Auto #/area (Urine sed) 6 High [facility] Microscopic examinat ion is performed on all urinalysis samples and only positive findings are reported. The test for blood on the chemical analytic portion of urinalysis may also be positive due to hemoglobinuria and myoglobinuria and if red blood cells are present they are quantified by microscopic examination. [facility] Urine Pregnancyon 06-16-2018 HCG ( test) Ql (U) Negative Negative [facility] CBC Auto Diff Reflex Manualo n 06-13-2018 Automated Absolute Neutrophil 2.58 10*3/mm3 Normal [facility] Comment on above: Result Comment: Auto mated Absolute Neutrophil Count (ANC) is directly measured using a hematology instrument. ANC determined from manual differential cell count may differ. No [facility] reference range has been validated for this assay. Performed By: #### C D #### Performed at [address] [place] [id number] Basophil 0.6 % Normal 0.0-1.0 [facility] Comment on above: Result Comment: Perf ormed at [facility] [place] [address] Performed By: #### C D #### Performed at [address] [place] [address] Differential Type Automated Normal [facility] Comment on above: Performed By: #### C D #### Performed at [address] [place] [address] Eosinophil 0.6 % Low 1.0-4.0 [facility] Comment on above: Performed By: #### C D #### Performed at [address] [place] [address] Erythrocyte distribution width (RBC) [Ratio] 12.7 % Normal 10-14.1 [facility] Comment on above: Performed By: #### C D #### Performed at [address] [place] [address] Lymphocyte 38.4 % Normal 28.0-48.0 [facility] Comment on above: Performed By: #### C D #### Performed at [address] [place] [address] MCH (RBC) [Entitic mass] 31.6 pg Normal 25-35 [facility] Comment on above: Performed By: #### C D #### Performed at [address] [place] [address] MCHC (RBC) [Mass/Vol] 35.1 % Normal 31.0-37.0 [facility] Comment on above: Performed By: #### C D #### Performed at [address] [place] [address] MCV (RBC) [Entitic vol] 90.0 fL Normal 78-102 [facility] Comment on above: Performed By: #### C D #### Performed at [address] [place] [address] Monocyte 7.8 % Normal 2.0-8.0 [facility] Comment on above: Performed By: #### C D #### Performed at [address] [place] [address] Neutrophil 52.6 % Normal 39.0-75.0 [facility] Comment on above: Performed By: #### C D #### Performed at [address] [place] [address] Platelet mean volume (Bld) [Entitic vol] 9.5 fL Normal 9.3-13.0 [facility] Comment on above: Performed By: #### C D #### Performed at [address] [place] [address] Platelets (Bld) [#/Vol] 306 10*3/uL Normal 140-440 [facility] Comment on above: Performed By: #### C D #### Performed at [address] [place] [address] RBC (Bld) [#/Vol] 4.40 10*6/uL Normal 4.1-5.1 [facility] Comment on above: Performed By: #### C D #### Performed at [address] [place] [address] WBC (Bld) [#/Vol] 4.9 10*3/uL Normal 4.5-13.5 [facility] Comment on above: Performed By: #### C D #### Performed at [address] [place] [address] CRPon 06-13-2018 CRP [Mass/Vol] mg/L Normal <1.2 [facility] Comprehensive Metabolic Pane jaron 06-13-2018 Albumin [Mass/Vol] 4.4 g/dL Normal 3.4-5.2 [facility] Comment on above: Performed By: #### C MTP #### Performed at [address] [place] [address] ALP [Catalytic activity/Vol] 157 U/L High 59-126 [facility] Comment on above: Performed By: #### C MTP #### Performed at [address] [place] [address] ALT [Catalytic activity/Vol] 20 U/L Normal <40 [facility] Comment on above: Performed By: #### C MTP #### Performed at [address] [place] [address] AST [Catalytic activity/Vol] 31 U/L Normal 15-50 [facility] Comment on above: Performed By: #### C MTP #### Performed at [address] [place] [address] Bilirubin Ql (U) 0.6 mg/dL Normal 0.1-1.0 [facility] Comment on above: Result Comment: Perf ormed at [address] [place] [address] Performed By: #### C MTP #### Performed at [address] [place] [address] Calcium [Mass/Vol] 9.4 mg/dL Normal 8-10.5 [facility] Comment on above: Performed By: #### C MTP #### Performed at [address] [place] [address] Chloride [Moles/Vol] 102 mmol/L Normal 95-106 [facility] Comment on above: Performed By: #### C MTP #### Performed at [address] [place] [address] CO2 [Moles/Vol] 28 mmol/L Normal 24-35 [facility] Comment on above: Performed By: #### C MTP #### Performed at [address] [place] [address] Creatinine [Mass/Vol] 0.70 mg/dL Normal 0.5-0.8 [facility] Comment on above: Result Comment: Note : New reference intervals, effective January 28, 2018. Performed By: #### C MTP #### Performed at [address] [place] [address] Glucose [Mass/Vol] 85 mg/dL Normal 60-115 [facility] Comment on above: Performed By: #### C MTP #### Performed at [address] [place] [address] Potassium [Moles/Vol] 4.3 mmol/L Normal 3.7-5.6 [facility] Comment on above: Performed By: #### C MTP #### Performed at [address] [place] [address] Protein [Mass/Vol] 7.5 g/dL Normal 5.8-8.7 [facility] Comment on above: Performed By: #### C MTP #### Performed at [address] [place] [address] Sodium [Moles/Vol] 140 mmol/L Normal 135-145 [facility] Comment on above: Performed By: #### C MTP #### Performed at [address] [place] [address] Urea nitrogen [Mass/Vol] 12 mg/dL Normal 5-18 [facility] Comment on above: Performed By: #### C MTP #### Performed at [address] [place] [address] Free T4on 06-13-2018 Free T4 [Mass/Vol] 1.0 ng/dL Normal 0.7-2.1 [facility] Lipaseon 06-13-2018 Lipase [Catalytic activity/Vol] 66 U/L Normal <202 [facility] Comment on above: Result Comment: Perf ormed at [address] [place] [address] Performed By: #### L IPA #### Performed at [address] [place] [address] Sedimentation Rateon 019 Sedimentation Rate 5 mm/h Normal <20 [facility] Comment on above: Result Comment: Perf ormed at [address] [place] [address] Performed By: #### S ED #### Performed at [address] [place] [address] TSHon 06-13-2018 TSH Qn 0.619 uIU/mL Normal 0.4-4.0 [facility] KNEE W/ONE OBLIQUEon 019 KNEE W/ONE OBLIQUE Final Report Accession No: [id number] Performed: Mar 15 2018 9:48PM Examination: LEFT KNEE W/ONE OBLIQUE EXAM: KNEE W/ONE OBLIQUE LEFT REASON FOR EXAM: Female, 12 years, Pain/trauma. TECHNIQUE: 3 views of the knee are performed. COMPARISON: 01/18/2016 FINDINGS: Normal visualized distal femur. Normal visualized proximal tibia and fibula. Normal proximal tibiofibular articulation. There is no demonstrated fracture. Normal lateral femorotibial compartment. Normal medial femorotibial compartment. The patellofemoral joint is normal. There is no joint effusion. The soft tissues are unremarkable. IMPRESSION: Normal examination of the knee Interpreting Physician: CHANDLER HITCHCOCK D.O. Trans: n/a : cc: Normal [facility] CBC w/o Diffon 03-14-2018 Erythrocyte distribution width (RBC) [Ratio] 13.1 % Normal 13-15 [facility] Comment on above: Performed By: #### H EPF, CBCWOD #### Unless otherwise noted, all testing performed by [facility] [address] [place] [address] CLIA: [id number] [place]: Luca Erwin M.D. #### HEPCABS #### Unless otherwise noted, all testing performed by [address] [address] CLIA: [id number] [place]: Luca Erwin M.D. Hematocrit (Bld) [Volume fraction] 38.8 % Normal 36.3-43.4 [facility] Comment on above: Performed By: #### H EPF, CBCWOD #### Unless otherwise noted, all testing performed by [address] [address] CLIA: [id number] [place]: Luca Erwin M.D. #### HEPCABS #### Unless otherwise noted, all testing performed by [place] [address] CLIA: [id number] [place]: Luca Erwin M.D. Hemoglobin (Bld) [Mass/Vol] 13.7 g/dL Normal 12.2-14.8 [facility] Comment on above: Performed By: #### H EPF, CBCWOD #### Unless otherwise noted, all testing performed by [address] [address] CLIA: [id number] [place]: Luca Erwin M.D. #### HEPCABS #### Unless otherwise noted, all testing performed by [place] [address] CLIA: [id number] [place]: Luca Erwin M.D. MCH (RBC) [Entitic mass] 31.3 pg Normal 26.6-31.4 [facility] Comment on above: Performed By: #### H EPF, CBCWOD #### Unless otherwise noted, all testing performed by [address] [address] CLIA: [id number] [place]: Luca Erwin M.D. #### HEPCABS #### Unless otherwise noted, all testing performed by [place] [address] CLIA: [id number] [place]: Luca Erwin M.D. MCHC (RBC) [Mass/Vol] 35.3 g/dL High 32.7-34.8 [facility] Comment on above: Performed By: #### H EPF, CBCWOD #### Unless otherwise noted, all [place] [address] CLIA: [id number] [place]: Luca Erwin M.D. #### HEPCABS #### Unless otherwise noted, all testing performed by [place] [address] CLIA: [id number] Landmen: Luca Erwin M.D. MCV (RBC) [Entitic vol] 88.8 fL Normal 79.9-92.3 [facility] Comment on above: Performed By: #### H EPF, CBCWOD #### Unless otherwise noted, all [place] [address] CLIA: [id number] Landmen: Luca Erwin M.D. #### HEPCABS #### Unless otherwise noted, all testing performed by [place] [address] CLIA: [id number] Landmen: Luca Erwin M.D. Platelet mean volume (Bld) [Entitic vol] 7.4 fL Normal 7.4-10.4 [facility] Comment on above: Performed By: #### H EPF, CBCWOD #### Unless otherwise noted, all [place] [address] CLIA: [id number] Landmen: Luca Rip, M.D. #### HEPCABS #### Unless otherwise noted, all testing performed by [place] [address] CLIA: [id number] Landmen: Luca Erwin M.D. Platelets (Bld) [#/Vol] 292 K/mcL Normal 130-400 [facility] Comment on above: Performed By: #### H EPF, CBCWOD #### Unless otherwise noted, all [place] [address] CLIA: [id number] Landmen: Luca Erwin M.D. #### HEPCABS #### Unless otherwise noted, all testing performed by [place] [address] CLIA: [id number] Landmen: Luca Erwin M.D. RBC (Bld) [#/Vol] 4.36 M/mcL Normal 4.1-5.2 [facility] Comment on above: Performed By: #### H EPF, CBCWOD #### Unless otherwise noted, all testing performed by [address] [address] CLIA: [id number] Landmen: Luca Erwin M.D. #### HEPCABS #### Unless otherwise noted, all testing performed by [place] [address] CLIA: [id number] Landmen: Luca Erwin M.D. WBC (Bld) [#/Vol] 5.0 K/mcL Normal 4.1-8.9 [facility] Comment on above: Performed By: #### H EPF, CBCWOD #### Unless otherwise noted, all testing performed by [address] [place] [address] CLIA: [id number] Landmen: Luca Erwin M.D. #### HEPCABS #### Unless otherwise noted, all testing performed by [place] [address] CLIA: [id number] Landmen: Luca Erwin M.D. HIV 1/2 Antibody Evalon 03-04 HIV 1/2 Antibody Eval Negative Normal Negative [facility] Comment on above: Result Comment: This assay screens for the presence of HIV-1, HIV-2 antibodies and for the presence of HIV-1 antigen. Test performed using CAB[employer] immunoassay system Test Performed by [facility] [address] [place] [address] Performed By: #### H IV #### Unless otherwise noted, all testing performed by [place] [address] CLIA: [id number] Landmen: Luca Erwin M.D. Hepatic Function Panelon Albumin [Mass/Vol] 4.2 g/dL Normal 3.8-5.4 [place] Comment on above: Performed By: #### H EPF, CBCWOD #### Unless otherwise noted, all [place] [address] CLIA: [id number] Landmen: Luca Erwin M.D. #### HEPCABS #### Unless otherwise noted, all testing performed by [place] [address] CLIA: [id number] Landmen: Luca Erwin M.D. ALP [Catalytic activity/Vol] 184 U/L Normal 110-630 [facility] Comment on above: Performed By: #### H EPF, CBCWOD #### Unless otherwise noted, all [place] [address] CLIA: [id number] Landmen: Luca Erwin M.D. #### HEPCABS #### Unless otherwise noted, all testing performed by [place] [phone] CLIA: [id number] Landmen: Luca Erwin M.D. ALT [Catalytic activity/Vol] 17 U/L Normal 14-65 [facility] Comment on above: Result Comment: This test result might be falsely depressed or falsely elevated on samples drawn from patients taking Sulfasalazine and Sulfapyridine. Venipuncture should occur prior to taking either of these drugs. Performed By: #### H EPF, CBCWOD #### Unless otherwise noted, all testing performed by [place] [phone] CLIA: [id number] Landmen: Luca Erwin M.D. #### HEPCABS ####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 8(805)392-268935 [place] [address] 09-15-2023 17:55-0400 Body height 172.7 cm Meme Gimenez PHARMACOLOGY TEACHER-[employer] OPERATOR Work Phone: 0(779)837-045835 [place] [address] 07-23-2023 15:23-0400 Diastolic blood pressure 76 mm[Hg] Meme Gimenez PHARMACOLOGY TEACHER-[employer] OPERATOR Work Phone: 4(064)664-290335 [place] [address] 07-23-2023 15:23-0400 Heart rate 62 /min Meme Gimenez PHARMACOLOGY TEACHER-[employer] OPERATOR Work Phone: 2(366)570-032035 [place] [address] 07-23-2023 15:23-0400 Respiratory rate 16 /min Meme Gimenez PHARMACOLOGY TEACHER-[employer] Work Phone: 2(188)481-408535 [place] [address] 07-23-2023 15:23-0400 SaO2% (BldA) [Mass fraction] 100 % Meme Gimenez PHARMACOLOGY TEACHER-[employer]PERATOR Work Phone: 1(888)960-469835 [place] [address] 07-23-2023 15:23-0400 Systolic blood pressure 112 mm[Hg] Meme Gimenez PHARMACOLOGY TEACHER-[employer] OPERATOR Work Phone: 8(398)636-666335 [place] [address] 07-23-2023 11:42-0400 Body height 172.7 cm Meme Gimenez PHARMACOLOGY TEACHER-[employer] Work Phone: 0(850)096-610235 [place] [address] 07-23-2023 11:42-0400 Body mass index (BMI) [Ratio] 19.77 kg/m2 Meme Gimenez PHARMACOLOGY TEACHER-[employer] Work Phone: 7(276)279-478235 [place] [address] 07-23-2023 11:42-0400 Body weight 58.97 kg Meme Gimenez PHARMACOLOGY TEACHER-[employer]PER[employer] Work Phone: 0(397)477-256735 [place] [address] 07-23-2023 11:41-0400 Body temperature 98.1 [degF] Meme Gimenez PHARMACOLOGY TEACHER-[employer] OPERATOR Work Phone: 6(231)822-957335 [place] [address] 07-19-2023 14:31-0400 Diastolic blood pressure 72 mm[Hg] Jana Sanchez MD Work Phone: [facility] 07-19-2023 14:31-0400 Heart rate 44 /min Jana Sanchez MD Work Phone: [facility] 07-19-2023 14:31-0400 Respiratory rate 17 /min Jana Sanchez MD Work Phone: [facility] 07-19-2023 14:31-0400 SaO2% (BldA) [Mass fraction] 100 % Jana Sanchez MD Work Phone: [facility] 07-19-2023 14:31-0400 Systolic blood pressure 112 mm[Hg] Jana Sanchez MD Work Phone: [facility] 07-19-2023 13:46-0400 Body temperature 98.2 [degF] Jana Sanchez MD Work Phone: [facility] 07-19-2023 09:00-0400 Body height 172.7 cm Jana Sanchez MD Work Phone: [facility] 07-19-2023 09:00-0400 Body mass index (BMI) [Ratio] 20.07 kg/m2 Jana Sanchez MD Work Phone: [facility] 07-19-2023 09:00-0400 Body weight 59.88 kg Jana Sanchez MD Work Phone: [facility] 04-04-2023 14:59-0500 Diastolic blood pressure 78 mm[Hg] Meme Gimenez PHARMACOLOGY TEACHER-[employer] OPER[employer] Work Phone: [facility] 04-04-2023 14:59-0500 Heart rate 82 /min Meme Gimenez PHARMACOLOGY TEACHER-[employer]PER[employer] Work Phone: [facility] 04-04-2023 14:59-0500 Respiratory rate 18 /min Meme Gimenez PHARMACOLOGY TEACHER-[employer] OPER[employer] Work Phone: [facility] 04-04-2023 14:59-0500 SaO2% (BldA) [Mass fraction] 99 % Meme Gimenez PHARMACOLOGY TEACHER-[employer] OPERATOR Work Phone: [facility] 04-04-2023 14:59-0500 Systolic blood pressure 132 mm[Hg] Meme Gimenez PHARMACOLOGY TEACHER-[employer] OPERATOR Work Phone: [facility] 04-04-2023 12:43-0500 Body temperature 98.01 [degF] Meme Gimenez PHARMACOLOGY TEACHER-[employer] OPER[employer] Work Phone: [facility] 04-04-2023 12:41-0500 Body height 172.7 cm Meme Gimenez PHARMACOLOGY TEACHER-[employer] OPERATOR Work Phone: [facility] 04-04-2023 12:41-0500 Body mass index (BMI) [Ratio] 18.85 kg/m2 Meme Allentess PHARMACOLOGY TEACHER-[employer] OPERATOR Work Phone: [facility] 04-04-2023 12:41-0500 Body weight 56.25 kg Meme Allentess PHARMACOLOGY TEACHER-[employer] OPERATOR Work Phone: [facility] 09-13-2022 08:24-0400 Body height 172.1 cm Sahil Brunson III, MD Work Phone: [facility] 09-13-2022 08:24-0400 Body mass index (BMI) [Ratio] 17.46 kg/m2 Sahil Brunson III, MD Work Phone: [facility] 09-13-2022 08:24-0400 Body temperature 97.7 [degF] Sahil Brunson III, MD Work Phone: [facility] 09-13-2022 08:24-0400 Body weight 51.71 kg Sahil Brunson III, MD Work Phone: [facility] 09-13-2022 08:24-0400 Diastolic blood pressure 68 mm[Hg] Sahil Brunson III, MD Work Phone: [facility] 09-13-2022 08:24-0400 Heart rate 88 /min Sahil Brunson III, MD Work Phone: [facility] 09-13-2022 08:24-0400 Systolic blood pressure 121 mm[Hg] Sahil Brunson III, MD Work Phone: [facility] 08-06-2022 11:47-0400 Diastolic blood pressure 61 mm[Hg] Sulema Lazar MD Work Phone: [facility] 08-06-2022 11:47-0400 Heart rate 75 /min Sulema Lazar MD Work Phone: [facility] 08-06-2022 11:47-0400 Respiratory rate 13 /min Sulema Lazar MD Work Phone: [facility] 08-06-2022 11:47-0400 SaO2% (BldA) [Mass fraction] 100 % Sulema Lazar MD Work Phone: [facility] 08-06-2022 11:47-0400 Systolic blood pressure 109 mm[Hg] Sulema Lazar MD Work Phone: [facility] 08-06-2022 10:17-0400 Body temperature 97.7 [degF] Sulema Lazar MD Work Phone: [facility] 08-06-2022 07:15-0400 Body height 172.7 cm Sulema Lazar MD Work Phone: [facility] 08-06-2022 07:15-0400 Body mass index (BMI) [Ratio] 18.25 kg/m2 Sulema Lazar MD Work Phone: [facility] 08-06-2022 07:15-0400 Body weight 54.43 kg Sulema Lazar MD Work Phone: [facility] 08-02-2022 09:03-0400 Diastolic blood pressure 76 mm[Hg] Candace Trammell MD Work Phone: [facility] 08-02-2022 09:03-0400 Heart rate 76 /min Candace Trammell MD Work Phone: [facility] 08-02-2022 09:03-0400 SaO2% (BldA) [Mass fraction] 99 % Candace Trammell MD Work Phone: [facility] 08-02-2022 09:03-0400 Systolic blood pressure 107 mm[Hg] Candace Trammell MD Work Phone: [facility] 07-12-2022 13:46-0400 Body height 172.7 cm Sulmea Lazar MD Work Phone: [facility] 07-12-2022 13:46-0400 Body mass index (BMI) [Ratio] 18.76 kg/m2 Sulema Lazar MD Work Phone: [facility] 07-12-2022 13:46-0400 Body weight 55.97 kg Sulema Lazar MD Work Phone: [facility] 07-05-2022 07:09-0400 Body height 172.7 cm Sulema Lazar MD Work Phone: [facility] 05-14-2022 13:05-0400 Diastolic blood pressure 71 mm[Hg] Roosevelt Gonzalez MD Work Phone: 6(908)394-737413 [place] [address] 05-14-2022 13:05-0400 Heart rate 70 /min Roosevelt Gonzalez MD Work Phone: 7(193)943-907655 [address] 05-14-2022 13:05-0400 Respiratory rate 18 /min Roosevelt Gonzalez MD Work Phone: 1(201)969-292055 [address] 05-14-2022 13:05-0400 SaO2% (BldA) [Mass fraction] 100 % Roosevelt Gonzalez MD Work Phone: 6(561)061-823570 [place] [address] 05-14-2022 13:05-0400 Systolic blood pressure 122 mm[Hg] Roosevelt Gonzalez MD Work Phone: 4(951)126-279570 [place] [address] 05-14-2022 11:25-0400 Body temperature 97.5 [degF] Roosevelt Gonzalez MD Work Phone: [facility] 05-01-2022 12:53-0500 Body mass index (BMI) [Ratio] 18.98 kg/m2 Dallin More MD Work Phone: [facility] 05-01-2022 12:53-0500 Body weight 55.79 kg Dallin Mroe MD Work Phone: [facility] 05-01-2022 12:53-0500 Diastolic blood pressure 87 mm[Hg] Dallin More MD Work Phone: [facility] 05-01-2022 12:53-0500 Heart rate 72 /min Dallin More MD Work Phone: [facility] 05-01-2022 12:53-0500 Systolic blood pressure 128 mm[Hg] Dallin More MD Work Phone: [facility] 04-23-2022 10:48-0500 Body height 171.5 cm Yina Anabelle [employer] Work Phone: [facility] 04-23-2022 10:48-0500 Body mass index (BMI) [Ratio] 18.86 kg/m2 Yina Anabelle [employer] OPER[employer] Work Phone: [facility] 04-23-2022 10:48-0500 Body weight 55.43 kg Yina Anabelle [employer] OPER[employer] Work Phone: [facility] 04-23-2022 10:48-0500 Diastolic blood pressure 70 mm[Hg] Yina Anabelle [employer] OPERATOR Work Phone: [facility] 04-23-2022 10:48-0500 Heart rate 90 /min Yina Anabelle [employer] OPERATOR Work Phone: [facility] 04-23-2022 10:48-0500 SaO2% (BldA) [Mass fraction] 99 % Yina Anabelle [employer] OPERATOR Work Phone: [facility] 04-23-2022 10:48-0500 Systolic blood pressure 110 mm[Hg] Yina Ahn ARNOLD Work Phone: [facility] 04-17-2022 09:41-0500 Body height 170.2 cm Dallin More MD Work Phone: [facility] 04-17-2022 09:41-0500 Body mass index (BMI) [Ratio] 19.73 kg/m2 Dallin More MD Work Phone: [facility] 04-17-2022 09:41-0500 Body weight 57.15 kg Dallin More MD Work Phone: [facility] 04-17-2022 09:41-0500 Diastolic blood pressure 84 mm[Hg] Dallin More MD Work Phone: [facility] 04-17-2022 09:41-0500 Heart rate 71 /min Dallin More MD Work Phone: [facility] 04-17-2022 09:41-0500 Respiratory rate 14 /min Dallin More MD Work Phone: [facility] 04-17-2022 09:41-0500 SaO2% (BldA) [Mass fraction] 99 % Dallin More MD Work Phone: [facility] 04-17-2022 09:41-0500 Systolic blood pressure 122 mm[Hg] Dallin More MD Work Phone: [facility] 01-04-2022 15:32-0400 Diastolic blood pressure 96 mm[Hg] Meme Gimenez PHARMACOLOGY TEACHER-[employer] OPERATOR Work Phone: [facility] 01-04-2022 15:32-0400 Heart rate 62 /min Meme Gimenez PHARMACOLOGY TEACHER-[employer] OPER[employer] Work Phone: [facility] 01-04-2022 15:32-0400 Respiratory rate 16 /min Meme Gimenez PHARMACOLOGY TEACHER-[employer] OPER[employer] Work Phone: [facility] 01-04-2022 15:32-0400 SaO2% (BldA) [Mass fraction] 100 % Meme Gimenez PHARMACOLOGY TEACHER-[employer] OPER[employer] Work Phone: 0(879)611-000835 [place] [address] 01-04-2022 15:32-0400 Systolic blood pressure 138 mm[Hg] Meme Gimenez PHARMACOLOGY TEACHER-[employer] Work Phone: 1(610)715-045635 [place] [address] 01-04-2022 13:59-0400 Body height 172.7 cm Meme Gimenez PHARMACOLOGY TEACHER-[employer]PER[employer] Work Phone: 6(686)998-099835 [place] [address] 01-04-2022 13:57-0400 Body temperature 97.7 [degF] Meme Gimenez PHARMACOLOGY TEACHER-[employer]PER[employer] Work Phone: 4(109)066-144735 [place] [address] 01-03-2022 15:43-0400 Diastolic blood pressure 75 mm[Hg] Meme Gimenez PHARMACOLOGY TEACHER-[employer]PER[employer] Work Phone: 0(812)159-704335 [place] [address] 01-03-2022 15:43-0400 Heart rate 80 /min Meme Gimenez PHARMACOLOGY TEACHER-[employer] Work Phone: 5(977)089-057135 [place] [address] 01-03-2022 15:43-0400 Respiratory rate 18 /min Meme Gimenez PHARMACOLOGY TEACHER-[employer]PER[employer] Work Phone: 4(717)798-686935 [place] [address] 01-03-2022 15:43-0400 SaO2% (BldA) [Mass fraction] 100 % Meme Gimenez PHARMACOLOGY TEACHER-[employer]PER[employer] Work Phone: 1(828)549-228635 [place] [address] 01-03-2022 15:43-0400 Systolic blood pressure 121 mm[Hg] Meme Gimenez PHARMACOLOGY TEACHER-[employer]PER[employer] Work Phone: 3(932)214-497035 [place] [address] 01-03-2022 12:53-0400 Body height 172.7 cm Meme Gimenez PHARMACOLOGY TEACHER-[employer] Work Phone: 4(490)817-917435 [place] [address] 01-03-2022 12:53-0400 Body mass index (BMI) [Percentile] Per age and sex 3.95 % Meme Gimenez PHARMACOLOGY TEACHER-[employer] Work Phone: 8(292)304-145635 [place] [address] 01-03-2022 12:53-0400 Body mass index (BMI) [Ratio] 17.53 kg/m2 Meme Gimenez PHARMACOLOGY TEACHER-[employer]PER[employer] Work Phone: 6(002)568-599635 [place] [address] 01-03-2022 12:53-0400 Body weight 52.3 kg Meme Gimenez PHARMACOLOGY TEACHER-[employer] OPER[employer] Work Phone: [facility] 01-03-2022 12:46-0400 Body temperature 97.81 [degF] Meme Edmundtess PHARMACOLOGY TEACHER-[employer] Work Phone: [facility] 12-05-2021 13:46-0400 Diastolic blood pressure 90 mm[Hg] Natalie Serina [employer] Work Phone: [facility] 12-05-2021 13:46-0400 Heart rate 69 /min Natalie Serina [employer] Work Phone: [facility] 12-05-2021 13:46-0400 SaO2% (BldA) [Mass fraction] 98 % Natalie Serina [employer] Work Phone: [facility] 12-05-2021 13:46-0400 Systolic blood pressure 122 mm[Hg] Natalie Serina [employer] Work Phone: [facility] 07-27-2021 08:16-0400 Body height 172.7 cm Mary Miguel MD Work Phone: [facility] 07-27-2021 08:16-0400 Body mass index (BMI) [Percentile] Per age and sex 12.94 % Mary Miguel MD Work Phone: [facility] 07-27-2021 08:16-0400 Body mass index (BMI) [Ratio] 18.55 kg/m2 Mary Miguel MD Work Phone: [facility] 07-27-2021 08:16-0400 Body weight 55.34 kg Mary Miguel MD Work Phone: [facility] 02-07-2021 06:53-0500 Body height 172 cm Milton Leos MD Work Phone: [facility] 02-07-2021 06:53-0500 Body mass index (BMI) [Percentile] Per age and sex 30.88 % Milton Leos MD Work Phone: [facility] 02-07-2021 06:53-0500 Body mass index (BMI) [Ratio] 19.81 kg/m2 Milton Leos MD Work Phone: [facility] 02-07-2021 06:53-0500 Body temperature 98.4 [degF] Milton Leos MD Work Phone: [facility] 02-07-2021 06:53-0500 Body weight 58.6 kg Milton Leos MD Work Phone: [facility] 02-07-2021 06:53-0500 Diastolic blood pressure 60 mm[Hg] Milton Leos MD Work Phone: [facility] 02-07-2021 06:53-0500 Heart rate 93 /min Milton Leos MD Work Phone: [facility] 02-07-2021 06:53-0500 Respiratory rate 18 /min Milton Leos MD Work Phone: [facility] 02-07-2021 06:53-0500 SaO2% (BldA) [Mass fraction] 99 % Milton Leos MD Work Phone: [facility] 02-07-2021 06:53-0500 Systolic blood pressure 110 mm[Hg] Milton Leos MD Work Phone: [facility] 08-08-2020 11:12-0400 Body temperature 98.2 [degF] Corona Malcom [employer] [facility] 08-08-2020 11:12-0400 Diastolic blood pressure 60 mm[Hg] Corona Malcom [employer] [facility] 08-08-2020 11:12-0400 Heart rate 94 /min Corona Malcom [employer] [facility] 08-08-2020 11:12-0400 Respiratory rate 16 /min Corona Malcom [employer] [facility] 08-08-2020 11:12-0400 SaO2% (BldA) [Mass fraction] 99 % Corona Malcom [employer] [facility] 08-08-2020 11:12-0400 Systolic blood pressure 100 mm[facility]Hg[facility] 06-17-2020 15:21-0400 Body height 172.7 cm Pedro Siddiqui Jr., MD Work Phone: [facility] 06-17-2020 15:21-0400 Body mass index (BMI) [Ratio] 20.83 kg/m2 Pedro Siddiqui Jr., MD Work Phone: [facility] 06-17-2020 15:21-0400 Body temperature 97.81 [degF] Pedro Siddiqui Jr., MD Work Phone: [facility] 06-17-2020 15:21-0400 Body weight 62.14 kg Pedro Siddiqui Jr., MD Work Phone: [facility] 06-17-2020 15:21-0400 Diastolic blood pressure 76 mm[Hg] Pedro Siddiqui Jr., MD Work Phone: [facility] 06-17-2020 15:21-0400 Heart rate 48 /min Pedro Siddiqui Jr., MD Work Phone: [facility] 06-17-2020 15:21-0400 Respiratory rate 18 /min Pedro Siddiqui Jr., MD Work Phone: [facility] 06-17-2020 15:21-0400 SaO2% (BldA) [Mass fraction] 100 % Pedro Siddiqui Jr., MD Work Phone: [facility] 06-17-2020 15:21-0400 Systolic blood pressure 120 mm[Hg] Pedro Siddiqui Jr., MD Work Phone: [facility] 05-18-2020 00:45-0400 BP Diastolic 70 mm[Hg] Richar Hurtado [facility] 05-18-2020 00:45-0400 BP Systolic 114 mm[Hg] Richar Hurtado [facility] 05-18-2020 00:45-0400 Pulse (Heart Rate) 56 /min Richar Hurtado [facility] 05-18-2020 00:45-0400 Pulse Oximetry 98 % Richar Hurtado [facility] 05-18-2020 00:45-0400 Respiratory Rate 18 /min Richar Hurtado [facility] 05-17-2020 23:02-0400 BMI (Body Mass Index) 21.29 kg/m2 Richar Hurtado [facility] 05-17-2020 23:02-0400 Body Temperature 97.7 [degF] Richar Hurtado [facility] 05-17-2020 23:02-0400 Body weight 63.5 kg Richar Hurtado [facility] 05-17-2020 23:02-0400 Height 172.7 cm Richar Hurtado [facility] 03-31-2020 15:25-0500 BMI (Body Mass Index) 23.42 kg/m2 Mary Miguel [facility] 03-31-2020 15:25-0500 Body weight 69.85 kg Mary Miguel [facility] 03-31-2020 15:25-0500 Height 172.7 cm Mary Miguel [facility] 02-15-2020 15:09-0500 BMI (Body Mass Index) 22.5 kg/m2 Corona Malcom [employer] 02-15-2020 15:09-0500 Body Temperature 97.9 [degF] Corona Malcom [employer] Tristan [facility] 02-15-2020 15:09-0500 Body weight 67.72 kg Corona Malcom [facility] [employer] Tristan Nurse [facility] 02-15-2020 15:09-0500 BP Diastolic 80 mm[Hg] Corona Malcom [employer] [employer] Tristan Nurse [facility] 02-15-2020 15:09-0500 BP Systolic 102 mm[Hg] Corona Malcom [facility] [facility] Tristan Nurse [facility] 02-15-2020 15:09-0500 Height 173.5 cm Corona Malcom [facility] Nurse [facility] 02-15-2020 15:09-0500 Pulse (Heart Rate) 96 /min Corona Malcom Dafne & Tristan [facility] 02-15-2020 15:09-0500 Pulse Oximetry 98 % Corona Malcom [facility] Nurse [facility] 02-15-2020 15:09-0500 Respiratory Rate 16 /min Corona Malcom Dafne & Tristan [facility] 02-03-2020 08:47-0500 BMI (Body Mass Index) 22.3 kg/m2 Corona Malcom [facility] Tristan Nurse [facility] 02-03-2020 08:47-0500 Body Temperature 97.7 [degF] Corona Malcom [facility] [employer] [facility] Nurse [facility] 02-03-2020 08:47-0500 Body weight 67.13 kg Corona Malcom D[facility] Tristan Nurse [facility] 02-03-2020 08:47-0500 BP Diastolic 74 mm[Hg] Corona Malcom [facility] [employer] Tr[facility] Nurse [facility] 02-03-2020 08:47-0500 BP Systolic 100 mm[Hg] Corona Malcom [facility] [employer] Tristan Nurse [facility] 02-03-2020 08:47-0500 Height 173.5 cm Corona Malcom [facility] [employer] Tristan Nurse [facility] 02-03-2020 08:47-0500 Pulse (Heart Rate) 100 /min Corona Malcom [facility] [employer] Tristan Nurse [facility] 02-03-2020 08:47-0500 Respiratory Rate 16 /min Corona Malcom [employer] [employer] Tr[facility] Nurse [facility] 12-17-2019 09:22-0400 BMI (Body Mass Index) 22.68 kg/m2 [facility] 12-17-2019 09:22-0400 Body Temperature 97.81 [degF] [facility] 12-17-2019 [id number]:220400 Body weight 68.27 kg [facility] 12-17-2019 09:22-0400 BP Diastolic 70 mm[Hg] [facility] 12-17-2019 09:22-0400 BP Systolic 104 mm[Hg] [facility] 12-17-2019 09:22-0400 Height 173.5 cm [facility] 12-17-2019 09:22-0400 Pulse (Heart Rate) 104 /min [facility] 12-17-2019 09:22-0400 Pulse Oximetry 98 % [facility] 12-17-2019 09:22-0400 Respiratory Rate 20 /min [facility] 10-14-2019 15:31-0400 Body Temperature 98.1 [degF] Mary Miguel [facility] 10-14-2019 14:33-0400 BP Diastolic 73 mm[Hg] Mary Miguel [facility] 10-14-2019 14:33-0400 BP Systolic 119 mm[Hg] Mary Miguel [facility] 10-14-2019 14:33-0400 Pulse (Heart Rate) 65 /min Mary Miguel [facility] 10-14-2019 14:33-0400 Pulse Oximetry 97 % Mary Miguel [facility] 10-14-2019 14:33-0400 Respiratory Rate 14 /min Mary Miguel [facility] 10-14-2019 08:30-0400 BMI (Body Mass Index) 23.46 kg/m2 Mary Miguel [facility] 10-14-2019 08:30-0400 Body weight 70 kg Mary Miguel [facility] 10-14-2019 08:30-0400 Height 172.7 cm Mary [facility] 09-18-2019 15:07-0400 BMI (Body Mass Index) 23.57 kg/m2 Mary Cuco [facility] 09-18-2019 15:07-0400 Body weight 70.31 kg Mary [facility] 09-18-2019 15:07-0400 Height 172.7 cm Mary [facility] 09-02-2019 11:16-0400 BMI (Body Mass Index) 20.98 kg/m2 [facility] 09-02-2019 11:16-0400 Body [facility] 58.97 [facility] 09-02-2019 11:16-0400 Height 167.6 cm [facility] 06-11-2019 09:39-0400 BMI (Body Mass Index) 24.1 kg/m2 Corona Malcom [facility] [employer] Tristan Nurse [facility] 06-11-2019 09:39-0400 Body Temperature 97.59 [degF] Corona Malcom [facility] Tr[facility] Nurse [facility] 06-11-2019 09:39-0400 Body weight 72.12 kg Corona Malcom [facility] Tr[facility] Nurse [facility] 06-11-2019 09:39-0400 BP Diastolic 74 mm[Hg] Corona Malcom [facility] Tristan Nurse [facility] 06-11-2019 09:39-0400 BP Systolic 122 mm[Hg] Corona Malcom [facility] Tr[facility] Nurse [facility] 06-11-2019 09:39-0400 Height 173 cm Corona Malcom [facility] [employer] [facility] Nurse [facility] 06-11-2019 09:39-0400 Pulse (Heart Rate) 81 /min Corona Malcom [facility] [employer] Tr[facility] Nurse [facility] 06-11-2019 09:39-0400 Pulse Oximetry 98 % Corona Malcom [facility] Nurse [facility] 06-11-2019 09:39-0400 Respiratory Rate 18 /min Corona Malcom [facility] Tr[facility] Nurse [facility] 05-20-2019 01:20-0400 BP Diastolic 62 mm[Hg] [facility] 05-20-2019 01:20-0400 BP Systolic 108 mm[Hg] [facility] 05-20-2019 01:20-0400 Pulse (Heart Rate) 78 /min [facility] 05-20-2019 01:20-0400 Pulse Oximetry 98 % [facility] 05-20-2019 01:20-0400 Respiratory Rate 16 /min [facility] 05-19-2019 23:08-0400 BMI (Body Mass Index) 20.98 kg/m2 [facility] 05-19-2019 23:08-0400 Body Temperature 98.4 [degF] [facility] 05-19-2019 23:08-0400 Body weight 58.97 kg [facility] 05-19-2019 23:08-0400 Height 167.6 cm [facility] 04-06-2019 09:59-0500 BMI (Body Mass Index) 23.95 kg/m2 [facility] 04-06-2019 09:59-0500 Body Temperature 97.59 [degF] [facility] 04-06-2019 09:59-0500 Body weight 71.67 kg [facility] 04-06-2019 09:59-0500 BP Diastolic 80 mm[Hg] [facility] 04-06-2019 09:59-0500 BP Systolic 104 mm[Hg] [facility] 04-06-2019 09:59-0500 Height 173 cm [facility] 04-06-2019 09:59-0500 Pulse (Heart Rate) 85 /min [facility] 04-06-2019 09:59-0500 Pulse Oximetry 97 % [facility] 04-06-2019 09:59-0500 Respiratory Rate 20 /min [facility] 03-23-2019 19:52-0500 BP Diastolic 74 mm[Hg] [facility] 03-23-2019 19:52-0500 BP Systolic 116 mm[Hg] [facility] 03-23-2019 19:52-0500 Pulse (Heart Rate) 60 /min [facility] 03-23-2019 19:52-0500 Pulse Oximetry 99 % [facility] 03-23-2019 19:52-0500 Respiratory Rate 18 /min [facility] 03-23-2019 18:34-0500 BMI (Body Mass Index) 21.93 kg/m2 [facility] 03-23-2019 18:34-0500 Body Temperature 98.2 [degF] [facility] 03-23-2019 18:34-0500 Body weight 63.5 kg [facility] 03-23-2019 18:34-0500 Height 170.2 cm [facility] 12-15-2018 00:30-0400 BP Diastolic 73 mm[Hg] [facility] 12-15-2018 00:30-0400 BP Systolic 128 mm[Hg] [facility] 12-15-2018 00:30-0400 Pulse Oximetry 99 % [facility] 12-15-2018 00:30-0400 Respiratory Rate 18 /min [facility] 12-14-2018 23:59-0400 Body Temperature 98.4 [degF] [facility] 12-14-2018 23:59-0400 Pulse (Heart Rate) 68 /min [facility] 12-14-2018 21:24-0400 BMI (Body Mass Index) 22.32 kg/m2 [facility] 12-14-2018 21:24-0400 Body [facility]6 [facility] 12-14-2018 21:24-0400 Height 172.7 cm [facility] 11-13-2018 08:59-0400 BMI (Body Mass Index) 22.41 kg/m2 [facility] 11-13-2018 08:59-0400 Body Temperature 97.5 [degF] [facility] 11-13-2018 08:59-0400 Body weight 66.86 kg [facility] 11-13-2018 08:59-0400 BP Diastolic 64 mm[Hg] [facility] 11-13-2018 08:59-0400 BP Systolic 120 mm[Hg] [facility] 11-13-2018 08:59-0400 Height 172.7 cm [facility] 11-13-2018 08:59-0400 Pulse (Heart Rate) 68 /min [facility] 11-13-2018 08:59-0400 Pulse Oximetry 98 % [facility] 11-13-2018 08:59-0400 Respiratory Rate 14 /min [facility] 11-07-2018 11:01-0400 Height 165.1 cm [facility] 11-07-2018 10:59-0400 Body Temperature 97.9 [degF] [facility] 11-07-2018 10:59-0400 BP Diastolic 77 mm[Hg] [facility] 11-07-2018 10:59-0400 BP Systolic 140 mm[Hg] [facility] 11-07-2018 10:59-0400 Pulse (Heart Rate) 66 /min [facility] 11-07-2018 10:59-0400 Pulse Oximetry 99 % [facility] 11-07-2018 10:59-0400 Respiratory Rate 16 /min [facility] 09-22-2018 19:21-0400 BMI (Body Mass Index) 21.93 kg/m2 [facility] 07-22-2019 19:21-0400 Body Temperature 98.49 [degF] [facility] 09-22-2018 19:21-0400 Body weight 63.5 kg [facility] 09-22-2018 19:21-0400 BP Diastolic 84 mm[Hg] [facility] 09-22-2018 19:21-0400 BP Systolic 117 mm[Hg] [facility] 09-22-2018 19:21-0400 Height 170.2 cm [facility] 09-22-2018 19:21-0400 Pulse (Heart Rate) 62 /min [facility] 09-22-2018 19:21-0400 Pulse Oximetry 97 % [facility] 09-22-2018 19:21-0400 Respiratory Rate 18 /min [facility] 07-01-2018 19:04-0400 BMI (Body Mass Index) 21.61 kg/m2 [facility] 07-01-2018 19:04-0400 Height 170.2 cm [facility] 07-01-2018 19:04-0400 Weight 62.6 kg [facility] 06-22-2018 17:58-0400 BP Diastolic 68 mm[Hg] [facility] 06-22-2018 17:58-0400 BP Systolic 109 mm[Hg] [facility] 06-22-2018 17:58-0400 Pulse (Heart Rate) 47 /min [facility] 06-22-2018 17:58-0400 Pulse Oximetry 100 % [facility] 06-22-2018 16:23-0400 BMI (Body Mass Index) 20.68 kg/m2 [facility] 06-22-2018 16:23-0400 Height 172.7 cm [facility] 06-22-2018 16:23-0400 Weight 61.69 kg [facility] 06-22-2018 16:04-0400 Body Temperature 98.29 [degF] [facility] 06-22-2018 16:04-0400 Respiratory Rate 16 /min [facility] 06-16-2018 19:06-0400 BP Diastolic 64 mm[Hg] [facility] 06-16-2018 19:06-0400 BP Systolic 105 mm[Hg] [facility] 06-16-2018 19:06-0400 Pulse (Heart Rate) 44 /min [facility] 06-16-2018 19:06-0400 Pulse Oximetry 100 % [facility] 06-16-2018 19:06-0400 Respiratory Rate 16 /min [facility] 06-16-2018 17:31-0400 Body Temperature 98.4 [degF] [facility] 06-09-2018 10:57-0400 BMI (Body Mass Index) 22.05 kg/m2 [facility] 06-09-2018 10:57-0400 Height 172.7 cm Alexis [facility] 06-09-2018 10:57-0400 Weight 65.77 kg [facility] 02-16-2018 15:35-0500 Body Temperature 98.29 [degF] [facility] Work Phone: 02-16-2018 15:35-0500 BP Diastolic 70 mm[Hg] [facility] Work Phone: 02-16-2018 15:35-0500 BP Systolic 120 mm[Hg] [facility] Work Phone: 02-16-2018 15:35-0500 Pulse (Heart Rate) 68 /min [facility] Work Phone: 02-16-2018 15:35-0500 Pulse Oximetry 99 % [facility] Work Phone: 02-16-2018 15:35-0500 Respiratory Rate 20 /min [facility] Work Phone: 02-16-2018 13:38-0500 Height 172.7 cm [facility] Work Phone: Encounters Encounter Date Encounter Type Care Provider Facility Start: 12-07-2024 End: 12-07-2024 Echocardiogram normal Lenora iVdal [employer]ANNEL MARKETING MANAGER-C [facility] Start: 12-07-2024 End: 12-07-2024 Patient encounter procedure Lenora FORMAN -[facility] Work Phone: Start: 12-07-2024 End: 12-07-[address] Maribell Yang DO Work Phone: [facility] Start: 12-04-2024 End: 12-04-2024 Emergency department patient visit MEME GIMENEZ [facility] Start: 11-24-2024 End: 11-24-2024 ambulatory MARIBELL HARRISON [facility] Start: 11-19-2024 End: 11-19-[address] Maribell Yang DO [facility] Start: 11-19-2024 End: 11-19-[address] Maribell Yang DO -[facility] Work Phone: Start: 11-19-2024 End: 11-19-[address] Maribell Yang DO Work Phone: [facility] Start: 11-19-2024 End: 11-19-2024 ambulatory Maribell Yang Facility:[facility] Start: 11-09-[address] Tamara Yang DO Work Phone: [facility] Comment on above: EF 60-65% 09/29/24 OS U Start: 11-03-2024 ambulatory JANA SICKLE [facility] Start: 10-30-2024 End: 10-30-2024 Emergency department patient visit MEME GIMENEZ [facility] Start: 10-27-2024 End: 10-27-2024 Office outpatient visit 25 minutes Loyd Prado MD Work Phone: [facility] Comment on above: Obstipation (Primary Dx) Start: 10-27-2024 ambulatory JANA SICKLE Facility: [facility] LOC Start: 10-27-2024 End: 10-27-2024 Follow-up encounter Loyd Prado MD Work Phone: [facility] Comment on above: Encounter for ultras ound to assess interval growth of fetus (Primary Dx); POTS (postural orthostatic tachycardia syndrome); Yola-Danlos syndrome type III; 27 weeks gestation of Start: 10-07-2024 End: 10-07-2024 Office outpatient visit 25 minutes Mary Guy PHARMACOLOGY TEACHER-[employer] Work Phone: Director [employer] [facility] Comment on above: POTS (postural ortho static tachycardia syndrome) (Primary Dx) Start: 10-07-2024 ambulatory LOYD PRADO Facility :[facility] Start: 09-29-2024 ambulatory LOYD PRADO Facility :[facility] Start: 09-29-2024 End: 09-29-2024 Subsequent hospital visit by physician Loyd Prado MD Work Phone: [facility] Comment on above: Arrived Start: 09-08-2024 Non-patient / Non-visit [facility] Work Phone: Start: 09-08-2024 End: 09-08-2024 [facility] Start: 09-08-2024 End: 09-08-2024 Subsequent hospital visit by physician Anne-Marie Bernstein MD Work Phone: [facility] Start: 09-01-2024 End: 09-01-2024 Office outpatient visit 25 minutes Loyd Prado MD Work Phone: [facility] Comment on above: POTS (postural ortho static tachycardia syndrome) (Primary Dx); Yola-Danlos syndrome type III Start: 09-01-2024 End: 09-01-2024 Patient encounter procedure Loyd Prado MD Work Phone: [facility] Comment on above: Encounter for anatomic survey (Primary Dx); Yola-Danlos syndrome; Encounter for screening for risk of pre-term labor; 19 weeks gestation of Start: 09-01-2024 ambulatory LOYD PRADO Facility :[facility] LOC Start: 07-07-2024 ambulatory JANA SANCHEZ [facility] Start: 05-26-2024 End: 05-26-2024 Office outpatient new 30 minutes Kai Wylie PHARMACOLOGY TEACHER-[employer] [facility] Comment on above: Fatigue, unspecified type (Primary Dx); Positive urine test; Viral URI Start: 05-26-2024 ambulatory SELF SELF [facility] Start: 05-18-2024 ambulatory FORREST THAAP [facility] Start: 05-18-2024 ambulatory Jana Azalia Facility:[facility] Start: 04-19-2024 End: 04-19-2024 Office outpatient visit 15 minutes Lindsey Ritchie PHARMACOLOGY TEACHER-[employer] Work Phone: [facility] Comment on above: Influenza (Primary D x); Cough, unspecified type Start: 04-19-2024 ambulatory LINDSEY RITCHIE [facility] Start: 11-28-2023 End: 11-28-2023 Emergency department patient visit Meme Prasad MD Work Phone: [facility] Start: 09-15-2023 End: 09-15-2023 Emergency department patient visit Meme Gimenez PHARMACOLOGY TEACHER-[employer]PER[employer] Work Phone: [facility] Start: 07-23-2023 End: 07-23-2023 Emergency department patient visit Meme Gimenez PHARMACOLOGY TEACHER-[employer]PER[employer] Work Phone: [facility] Start: 07-19-2023 End: 07-19-2023 Patient encounter status Jana Sanchez MD Work Phone: [facility] Start: 07-19-2023 End: 07-19-2023 Subsequent hospital visit by physician Jana Sanchez MD Work Phone: [facility] Comment on above: Pelvic pain in femal e Start: 04-04-2023 End: 04-04-2023 Emergency department patient visit Meme Gimenez PHARMACOLOGY TEACHER-[employer] Work Phone: [facility] Emergency Department Start: 04-02-2023 End: 04-06-2023 ambulatory [facility] Start: 01-18-2023 Documentation procedure Barney Gorman mm MA [facility] Start: 12-17-2022 Orders Only Yina Ahn ARNOLD Work Phone: [facility] Start: 12-14-2022 ambulatory [facility] Start: 11-13-2022 End: 11-17-2022 ambulatory Patti Song [facility] Start: 11-13-2022 End: 11-13-2022 Patient encounter procedure Sulema Lazar MD Work Phone: [facility] Comment on above: Tear of MCL (medial collateral ligament) of knee, right, initial encounter (Primary Dx); Instability of right patellofemoral joint; Yola-Danlos disease Start: 11-08-2022 End: 11-08-2022 Office outpatient visit 15 minutes Sulema Lazar MD Work Phone: [facility] [place] Comment on above: S/P knee surgery (Pr imary Dx) Start: 11-06-2022 End: 11-10-2022 ambulatory Patti Song [facility] Start: 11-06-2022 End: 11-06-2022 Patient encounter procedure Sulema Lazar MD Work Phone: [facility] Comment on above: Tear of MCL (medial collateral ligament) of knee, right, initial encounter (Primary Dx); Instability of right patellofemoral joint; Yola-Danlos disease Start: 11-03-2022 End: 11-03-2022 Emergency department patient visit HAL VELASQUEZ [facility] Start: 10-26-2022 End: 10-30-2022 ambulatory SULEMA LAZAR [facility] Start: 10-26-2022 End: 10-26-2022 ambulatory Natali Hope [facility] Start: 10-26-2022 End: 10-26-2022 Patient encounter procedure Sulema Lazar MD Work Phone: [facility] Comment on above: Tear of MCL (medial collateral ligament) of knee, right, initial encounter (Primary Dx); Instability of right patellofemoral joint; Yola-Danlos disease Start: 10-23-2022 End: 10-27-2022 ambulatory SULEMA L. [facility] Start: 10-19-2022 End: 10-23-2022 ambulatory SULEMA L. [facility] Start: 10-19-2022 End: 10-19-2022 ambulatory Sarah Mckeon [facility] Start: 10-19-2022 End: 10-19-2022 Patient encounter procedure Sulema Lazar MD Work Phone: [facility] Comment on above: Tear of MCL (medial collateral ligament) of knee, right, initial encounter (Primary Dx); Instability of right patellofemoral joint; Yola-Danlos disease Start: 10-16-2022 End: 10-20-2022 [facility] Start: 10-16-2022 End: 10-16-2022 ambulatory Patti Song [facility] Start: 10-16-2022 End: 10-16-2022 Patient encounter procedure Sulema Lazar MD Work Phone: [facility] Comment on above: Tear of MCL (medial collateral ligament) of knee, right, initial encounter (Primary Dx); Instability of right patellofemoral joint; Yola-Danlos disease Start: 10-12-2022 End: 10-16-2022 ambulatory SULEMA L. [facility] Start: 10-12-2022 End: 10-12-2022 ambulatory Patti Song [facility] Start: 10-12-2022 End: 10-12-2022 Patient encounter procedure Sulema Lazar MD Work Phone: [facility] Comment on above: Tear of MCL (medial collateral ligament) of knee, right, initial encounter (Primary Dx); Instability of right patellofemoral joint; Yola-Danlos disease Start: 10-09-2022 End: 10-13-2022 ambulatory [facility] Start: 10-05-2022 End: 10-09-2022 ambulatory [facility] Start: 10-02-2022 End: 10-06-2022 ambulatory [facility] Start: 10-02-2022 End: 10-02-2022 ambulatory Patti Song [facility] Start: 10-02-2022 End: 10-02-2022 Patient encounter procedure Sulema Lazar MD Work Phone: [facility] Comment on above: Tear of MCL (medial collateral ligament) of knee, right, initial encounter (Primary Dx); Instability of right patellofemoral joint; Yola-Danlos disease Start: 09-28-2022 End: 10-02-2022 [facility] Start: 09-28-2022 End: 09-28-2022 [facility] Start: 09-28-2022 End: 09-28-2022 Patient encounter procedure Sulema Lazar MD Work Phone: [facility] Comment on above: Tear of MCL (medial collateral ligament) of knee, right, initial encounter (Primary Dx); Instability of right patellofemoral joint; Yola-Danlos disease Start: 09-27-2022 End: 09-27-2022 Postop follow up visit related to original px Kevin CORLEY Work Phone: [facility] [place] Comment on above: S/P knee surgery (Pr imary Dx); Patellar instability of right knee Start: 09-26-2022 End: 09-30-2022 [facility] Start: 09-24-2022 End: 09-28-2022 ambulatory [facility] Start: 09-24-2022 End: 09-24-2022 ambulatory Kimo [facility] Start: 09-24-2022 End: 09-24-2022 Patient encounter procedure Sulema Lazar MD Work Phone: [facility] Comment on above: Tear of MCL (medial collateral ligament) of knee, right, initial encounter (Primary Dx); Instability of right patellofemoral joint; Yola-Danlos disease Start: 09-21-2022 End: 09-25-2022 ambulatory SULEMA L. [facility] Start: 09-19-2022 End: 09-23-[address] [facility] Hallie [facility] Start: 09-19-2022 End: 09-19-2022 ambulatory Patti Song [facility] Start: 09-19-2022 End: 09-19-2022 Patient encounter procedure Sulema Lazar MD Work Phone: [facility] Comment on above: Tear of MCL (medial collateral ligament) of knee, right, initial encounter (Primary Dx); Instability of right patellofemoral joint; Yola-Danlos disease Start: 09-17-2022 End: 09-21-2022 [facility] Start: 09-17-2022 End: 09-17-2022 ambulatory Natali Jayy [facility] Start: 09-17-2022 End: 09-17-2022 Patient encounter procedure uSlema Lazar MD Work Phone: [facility] Comment on above: Tear of MCL (medial collateral ligament) of knee, right, initial encounter (Primary Dx); Instability of right patellofemoral joint; Yola-Danlos disease Start: 09-14-2022 End: 09-18-2022 [facility] Start: 09-13-2022 End: 09-13-2022 Subsequent hospital visit by physician Kaylynn Parish PHARMACOLOGY TEACHER-[employer] OPERATOR Work Phone: [facility] [place] Comment on above: Arrived Start: 09-13-2022 End: 09-13-2022 Office outpatient visit 25 minutes Sahil Brunson MD Work Phone: Division of Surgical Oncology Comment on above: 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abdiel st, left (Primary Dx) Start: 09-12-2022 End: 09-16-2022 ambulatory SULEMA Sterling [facility] Start: 09-12-2022 End: 09-12-2022 ambulatory [facility] Out[facility] Therapy Start: 09-12-2022 End: 09-12-2022 Patient encounter procedure Sulema Lazar MD Work Phone: [facility] Physical Therapy Comment on above: Tear of MCL (medial collateral ligament) of knee, right, initial encounter (Primary Dx); Instability of right patellofemoral joint; Yola-Danlos disease Start: 09-10-2022 End: 09-14-2022 ambulatory SULEMA Sterling [facility] Start: 09-10-2022 End: 09-10-2022 ambulatory Susan Almonte [facility] Outpatient Physical Therapy Start: 09-10-2022 End: 09-10-2022 Patient encounter procedure Sulema Lazar MD Work Phone: [facility] Comment on above: Tear of MCL (medial collateral ligament) of knee, right, initial encounter (Primary Dx); Instability of right patellofemoral joint; Yola-Danlos disease Start: 09-07-2022 End: 09-11-2022 ambulatory SULEMA [facility] Start: 09-07-2022 End: 09-07-2022 ambulatory [facility] Out[facility] Therapy Start: 09-07-2022 End: 09-07-2022 Patient encounter procedure Sulema Lazar MD Work Phone: [facility] Comment on above: Tear of MCL (medial collateral ligament) of knee, right, initial encounter (Primary Dx); Instability of right patellofemoral joint; Yola-Danlos disease Start: 09-05-2022 End: 09-09-2022 ambulatory SULEMA Sterling [facility] Start: 09-05-2022 End: 09-05-2022 ambulatory Natali [facility] Start: 09-05-2022 End: 09-05-2022 Patient encounter procedure Sulema Lazar MD Work Phone: [facility] Comment on above: Tear of MCL (medial collateral ligament) of knee, right, initial encounter (Primary Dx); Instability of right patellofemoral joint; Yola-Danlos disease Start: 09-03-2022 End: 09-07-2022 ambulatory SULEMA L. [facility] Start: 09-03-2022 End: 09-03-2022 ambulatory [facility] Outpatient Physical Therapy Start: 09-03-2022 End: 09-03-2022 Patient encounter procedure Sulema Lazar MD Work Phone: [facility] Comment on above: Tear of MCL (medial collateral ligament) of knee, right, initial encounter (Primary Dx); Instability of right patellofemoral joint; Yola-Danlos disease Start: 08-31-2022 End: [facility] Start: 08-31-2022 End: 08-31-2022 ambulatory [facility] Out[facility] Physical Therapy Start: 08-31-2022 End: 08-31-2022 Patient encounter procedure Sulema Lazar MD Work Phone: [facility] Comment on above: Tear of MCL (medial collateral ligament) of knee, right, initial encounter (Primary Dx); Instability of right patellofemoral joint; Yola-Danlos disease Start: 08-29-2022 End: 09-02-2022 [facility] Start: 08-29-2022 End: 08-29-2022 ambulatory Kimo Rojo [facility] Outpatient Physical Therapy Start: 08-29-2022 End: 08-29-2022 Patient encounter procedure Sulema Lazar MD Work Phone: [facility] Comment on above: Tear of MCL (medial collateral ligament) of knee, right, initial encounter (Primary Dx); S/P reconstruction of ligament of knee; Instability of right patellofemoral joint; Yola-Danlos disease Start: 08-23-2022 End: 08-23-2022 Postop follow up visit related to original px Kevin CORLEY Work Phone: Sports Medicine [facility] Comment on above: S/P knee surgery (Pr imary Dx) Start: 08-23-2022 End: 08-23-2022 Subsequent hospital visit by physician Kevin CORLEY Work Phone: Imaging [facility] Comment on above: Arrived Start: 08-06-2022 End: 08-06-2022 Subsequent hospital visit by physician Sulema Lazar MD Work Phone: Outpatient Surgery [facility] Comment on above: Patellar instability of right knee Start: 08-02-2022 End: 08-02-2022 ambulatory CANDACE TRAMMELL [facility] Ambulatory Start: 08-02-2022 End: 08-02-2022 Patient encounter procedure Candace Trammell MD Work Phone: [facility] Comment on above: Right ureteral stone [N20.1 (ICD-10-CM)] (Primary Dx) Start: 07-26-2022 End: 07-26-2022 ambulatory [facility] Start: 07-24-2022 End: 07-24-2022 ambulatory [facility] Ambulatory Start: 07-24-2022 Admission to [facility] Work Phone: [facility] Comment on above: Right ureteral stone (Primary Dx) Start: 07-18-2022 End: 07-18-2022 Emergency department patient visit PEDRO SIDDIQUI [facility] Start: 07-12-2022 End: 07-12-2022 Office outpatient visit 25 minutes Sulema Lazar MD Work Phone: Sports Medicine [facility] Comment on above: Patellar instability of right knee (Primary Dx) Start: 07-05-2022 ambulatory BARNEY JACQUES [facility] Ambulatory Start: 07-05-2022 End: 07-05-2022 Subsequent hospital visit by physician Sulema Lazar MD Work Phone: Imaging [facility] Comment on above: Arrived Start: 06-14-2022 End: 06-14-2022 Office outpatient new 45 minutes Sulema Lazar MD Work Phone: Sports Medicine [facility] Comment on above: Right knee pain, uns pecified chronicity (Primary Dx) Start: 06-14-2022 End: 06-14-2022 Subsequent hospital visit by physician Sulema Lazar MD Work Phone: Imaging [facility] Comment on above: Arrived Start: 05-24-2022 End: 05-25-2022 ambulatory MEME GIMENEZ [facility] Start: 05-22-2022 ambulatory EUSEBIO SOLORIO [facility] Ambulatory Start: 05-14-2022 End: 05-14-2022 Emergency department patient visit Roosevelt Gonzalez MD Work Phone: [facility] Emergency Department Start: 05-04-2022 Coordination of care plan Fabiola Lamar RN Patient Navigator Start: 05-01-2022 End: 05-01-2022 ambulatory [facility] Start: 05-01-2022 End: 05-01-2022 Office outpatient visit 10 minutes Dallin More MD Work Phone: [facility] Comment on above: Breast fibroadenoma, left (Primary Dx); Pseudoangiomatous stromal hyperplasia of breast Start: 04-25-2022 Coordination of care plan Fabiola Lamar RN Patient Navigator Start: 04-25-2022 End: 04-26-2022 ambulatory MEME GIMENEZ [facility] Start: 04-23-2022 End: 04-23-2022 ambulatory [facility] Ambulatory Start: 04-23-2022 End: 04-23-2022 Office outpatient new 30 minutes Meme Gimenez CNP Work Phone: [facility] Gastroenterology Comment on above: Chronic constipation (Primary Dx); Bloating; Nausea; Abdominal pain, unspecified abdominal location; Early satiety Start: 04-17-2022 Coordination of care plan Fabiola Lamar RN Patient Navigator Start: 04-17-2022 End: 04-17-2022 ambulatory [facility] Start: 04-17-2022 End: 04-17-2022 Office outpatient new 30 minutes Meme Reid Pernell [employer] OPERATOR Work Phone: [facility] Comment on above: Abnormal finding on imaging (Primary Dx); Breast lump in upper outer quadrant; Family history of breast cancer Start: 04-03-2022 End: 04-04-2022 ambulatory [facility] Start: 01-24-2022 End: 01-25-2022 ambulatory [facility] Start: 01-04-2022 End: 01-04-2022 Emergency department patient visit Meme Gimenez PHARMACOLOGY TEACHER-[employer] PLANT OPERATOR Work Phone: [facility] Emergency Department Start: 01-03-2022 End: 01-03-2022 Subsequent hospital visit by physician Qiana Torre PA-C Work Phone: [facility] Artist [employer] Comment on above: Arrived Start: 01-03-2022 End: 01-03-2022 Emergency department patient visit Meme Gimenez PHARMACOLOGY TEACHER-[employer] OPERATOR Work Phone: [facility] Emergency Department Start: 12-05-2021 End: 12-05-2021 [facility] Start: 12-05-2021 End: 12-05-2021 Office outpatient new 30 minutes Meme Reid Pernell [employer] PL[employer] OPERATOR Work Phone: [facility] Comment on above: Hematuria, unspecifi ed type (Primary Dx); Recurrent kidney stones Start: 07-27-2021 Orders Only Sheba sainz BEARING MACHINE OPERATOR [facility] Comment on above: Tear of right acetab ular labrum, initial encounter (Primary Dx); Tear of left acetabular labrum, subsequent encounter Start: 07-27-2021 End: 07-27-2021 Office outpatient visit 10 minutes Mary Miguel MD Work Phone: [facility] Comment on above: Tear of right acetab ular labrum, initial encounter (Primary Dx); Instability of right patellofemoral joint Start: 02-22-2021 Documentation procedure Lauren Nuñez LPN [facility] Start: 02-07-2021 End: 02-07-2021 Office outpatient visit 15 minutes Milton Leos MD Work Phone: [facility] Comment on above: Sore throat (Primary Dx); Viral syndrome Start: 12-29-2020 Orders Only Mary Miguel MD Work Phone: [facility] Comment on above: Tear of right acetab ular labrum, initial encounter (Primary Dx) Start: 12-29-2020 End: 12-29-2020 Office outpatient visit 10 minutes Mary Miguel MD Work Phone: [facility] Comment on above: Instability of right patellofemoral joint (Primary Dx); Yola-Danlos disease Start: 09-29-2020 End: 09-29-2020 Office outpatient visit 10 minutes Mary Miguel MD Work Phone: [facility] Comment on above: S/P right knee arthr oscopy (Primary Dx); Yola-Danlos disease Start: 08-08-2020 End: 08-08-2020 Clinical Support Encounter Milton Leos MD Work Phone: [facility] Comment on above: Urinary pain (Primar y Dx) Start: 06-17-2020 End: 06-17-2020 Emergency department patient visit Pedro Siddiqui MD Work Phone: [facility] Emergency Department Start: 05-17-2020 End: 05-18-2020 Emergency department patient visit Richar Hurtado Work Phone: [facility] Emergency Department Start: 04-29-2020 End: 04-29-2020 Patient encounter procedure Mary Miguel Work Phone: [facility] Therapy Comment on above: Instability of right patellofemoral joint Start: 04-22-2020 End: 04-22-2020 Patient encounter procedure Mary Miguel Work Phone: [facility] Comment on above: Instability of right patellofemoral joint Start: 04-15-2020 End: 04-15-2020 Patient encounter procedure Mary Chávezhard Work Phone: [facility] Comment on above: Instability of right patellofemoral joint Start: 04-01-2020 End: 04-01-2020 Patient encounter procedure Mary Miguel Work Phone: [facility] Comment on above: Instability of right patellofemoral joint; Tear of MCL (medial collateral ligament) of knee, right, initial encounter Start: 03-31-2020 End: 03-31-2020 Office outpatient visit 10 minutes Mary Malave Cuco Work Phone: [facility] Comment on above: S/P right knee arthr oscopy (Primary Dx) Start: 03-25-2020 End: 03-25-2020 Patient encounter procedure Mary Malave Cuco Work Phone: [facility] Comment on above: Instability of right patellofemoral joint Start: 03-22-2020 End: 03-22-2020 Patient encounter procedure Mary Miguel Work Phone: [facility] Comment on above: Instability of right patellofemoral joint Start: 03-18-2020 End: 03-18-2020 Patient encounter procedure Mary Miguel Work Phone: [facility] Comment on above: Instability of right patellofemoral joint Start: 03-15-2020 End: 03-15-2020 Clinical Support Encounter Milton Dafne Work Phone: [facility] Comment on above: Hematuria, unspecifi ed type (Primary Dx) Start: 03-15-2020 End: 03-15-2020 Patient encounter procedure Mary Malave Cuoc Work Phone: [facility] Comment on above: Instability of right patellofemoral joint Start: 03-11-2020 End: 03-11-2020 Patient encounter procedure Mary Malave Cuco Work Phone: [facility] Comment on above: Instability of right patellofemoral joint Start: 03-08-2020 End: 03-08-2020 Patient encounter procedure Mary Miguel Work Phone: [facility] Comment on above: Instability of right patellofemoral joint Start: 02-25-2020 End: 02-25-2020 Patient encounter procedure Mary Chávezhard Work Phone: [facility] Comment on above: Instability of right patellofemoral joint Start: 02-23-2020 End: 02-23-2020 Patient encounter procedure Mary Chávezhard Work Phone: [facility] Comment on above: Instability of right patellofemoral joint Start: 02-15-2020 End: 02-15-2020 Clinical Support Encounter Milton Martinezzger Work Phone: [facility] Comment on above: Dysuria (Primary Dx) Start: 02-03-2020 End: 02-03-2020 Clinical Support Encounter Miltno Martinezzger Work Phone: [facility] Comment on above: Dysuria (Primary Dx) ; Urinary pain Start: 02-02-2020 End: 02-02-2020 Patient encounter procedure Mary Miguel Work Phone: [facility] Comment on above: Instability of right patellofemoral joint Start: 01-22-2020 End: 01-22-2020 Patient encounter procedure Mary Chávezhard Work Phone: [facility] Comment on above: Instability of right patellofemoral joint Start: 01-19-2020 End: 01-19-2020 Patient encounter procedure Mary Malave Cuco Work Phone: [facility] Comment on above: Instability of right patellofemoral joint Start: 01-15-2020 End: 01-15-2020 Patient encounter procedure Mary Malave Cuco Work Phone: [facility] Comment on above: Instability of right patellofemoral joint Start: 01-12-2020 End: 01-12-2020 Patient encounter procedure Mary Miguel Work Phone: [facility] Comment on above: Instability of right patellofemoral joint Start: 01-08-2020 End: 01-08-2020 Patient encounter procedure Mary Miguel Work Phone: [facility] Comment on above: Instability of right patellofemoral joint Start: 01-05-2020 End: 01-05-2020 Patient encounter procedure Mary Miguel Work Phone: [facility] Comment on above: Instability of right patellofemoral joint Start: 01-01-2020 End: 01-01-2020 Patient encounter procedure Mary Miguel Work Phone: [facility] Comment on above: Instability of right patellofemoral joint Start: 12-31-2019 End: 12-31-2019 Patient encounter procedure Mary Miguel Work Phone: [facility] Comment on above: Instability of right patellofemoral joint Start: 12-17-2019 End: 12-17-2019 Periodic preventive med est patient 12-17yrs Milton Leos Work Phone: [facility] Comment on above: Routine screening fo r STI (sexually transmitted infection) (Primary Dx); Encounter for routine child health examination without abnormal findings; Need for vaccination Start: 12-14-2019 End: 12-14-2019 Patient encounter procedure Mary Miguel Work Phone: [facility] Comment on above: Instability of right patellofemoral joint Start: 12-11-2019 End: 12-11-2019 Patient encounter procedure Mary Miguel Work Phone: [facility] Comment on above: Instability of right patellofemoral joint Start: 12-10-2019 End: 12-10-2019 Patient encounter procedure Mary Miguel Work Phone: [facility] Comment on above: Instability of right patellofemoral joint Start: 12-07-2019 End: 12-07-2019 Patient encounter procedure Mary Miguel Work Phone: [facility] Comment on above: Instability of right patellofemoral joint Start: 12-03-2019 End: 12-03-2019 Patient encounter procedure Mary Miguel Work Phone: [facility] Comment on above: Instability of right patellofemoral joint Start: 11-30-2019 End: 11-30-2019 Patient encounter procedure Mary Miguel Work Phone: [facility] Comment on above: Instability of right patellofemoral joint Start: 11-27-2019 End: 11-27-2019 Patient encounter procedure Mary Miguel Work Phone: [facility] Comment on above: Instability of right patellofemoral joint Start: 11-26-2019 End: 11-26-2019 Postop follow up visit related to original px Mary Miguel Work Phone: [facility] Comment on above: S/P right knee arthr oscopy (Primary Dx); Instability of right patellofemoral joint; Yola-Danlos disease Start: 11-26-2019 End: 11-26-2019 Patient encounter procedure Mary Miguel Work Phone: [facility] Comment on above: Instability of right patellofemoral joint Start: 11-20-2019 End: 11-20-2019 Patient encounter procedure Mary Miguel Work Phone: [facility] Comment on above: Instability of right patellofemoral joint Start: 11-19-2019 End: 11-19-2019 Patient encounter procedure Mary Miguel Work Phone: [facility] Comment on above: Instability of right patellofemoral joint Start: 11-16-2019 End: 11-16-2019 Patient encounter procedure Mary Chávezhard Work Phone: [facility] Comment on above: Instability of right patellofemoral joint Start: 11-12-2019 End: 11-12-2019 Patient encounter procedure Mary Ananda Miguel Work Phone: [facility] Comment on above: Instability of right patellofemoral joint Start: 11-10-2019 End: 11-10-2019 Patient encounter procedure Mary Chávezhard Work Phone: [facility] Comment on above: Instability of right patellofemoral joint Start: 11-05-2019 End: 11-05-2019 Patient encounter procedure Mary Malave Cuco Work Phone: [facility] Comment on above: Instability of right patellofemoral joint Start: 11-02-2019 End: 11-02-2019 Patient encounter procedure Mary Chávezhard Work Phone: [facility] Comment on above: Instability of right patellofemoral joint Start: 10-28-2019 End: 10-28-2019 Postop follow up visit related to original px Mary Ananda Miguel Work Phone: [facility] Comment on above: Instability of right patellofemoral joint (Primary Dx) Start: 10-14-2019 End: 10-14-2019 Subsequent hospital visit by physician Mary Miguel Work Phone: [facility] Per[facility] Comment on above: S/P arthroscopic valentina jeremy of right knee (Primary Dx); Instability of right patellofemoral joint; Yola-Danlos disease; Instability of right patellofemoral joint; Yola-Danlos disease Start: 10-11-2019 End: 10-11-2019 Patient encounter procedure MARY MIGUEL [facility] Start: 09-18-2019 End: 09-18-2019 Office outpatient new 20 minutes Yumiko Hancock Work Phone: [facility] Comment on above: Instability of right patellofemoral joint Start: 09-02-2019 End: 09-02-2019 Office outpatient new 20 minutes Yumiko Hancock Work Phone: [facility] [place] Comment on above: Yola-Danlos diseas e (Primary Dx); Instability of right patellofemoral joint; Chondromalacia of knee, right Start: 06-11-2019 End: 06-11-2019 Clinical Support Encounter Milton Leos Work Phone: [facility] Comment on above: Dysuria (Primary Dx) Start: 05-29-2019 End: 05-29-2019 Periodic preventive med est patient 12-17yrs Milton Leos Work Phone: [facility] Comment on above: Encounter for routin e child health examination without abnormal findings (Primary Dx); Need for vaccination Start: 05-19-2019 End: 05-20-2019 Emergency department patient visit John Ordaz Work Phone: [facility] Emergency Department Comment on above: Viral gastroenteriti s (Primary Dx) Start: 04-20-2019 End: 04-20-2019 Subsequent hospital visit by physician Milton Leos Work Phone: [facility] Comment on above: Arrived Start: 04-06-2019 End: 04-06-2019 Office outpatient visit 25 minutes Milton Leos Work Phone: [facility] Comment on above: Chronic daily headac he (Primary Dx); Chronic fatigue; Intractable chronic paroxysmal hemicrania; Yola-Danlos syndrome; Fibromyalgia Start: 03-23-2019 End: 03-23-2019 Emergency department patient visit Pedro Siddiqui Work Phone: [facility] Emergency Department Comment on above: Feeling tired (Prima ry Dx); Nonintractable headache, unspecified chronicity pattern, unspecified headache type; Pharyngitis, unspecified etiology Start: 12-14-2018 End: 12-15-2018 Emergency department patient visit Eun Cadena Work Phone: [facility] Emergency Department Comment on above: Abdominal pain in fe male patient (Primary Dx); Bloody stools Start: 11-24-2018 End: 11-24-2018 [facility]: Results Start: 11-21-2018 End: 11-21-2018 Subsequent hospital visit by physician Milton Leos Work Phone: [facility] Comment on above: Arrived Start: 11-18-2018 End: 11-18-2018 Telephone encounter Siena Brownxler [facility] Comment on above: Results Start: 11-15-2018 End: 11-15-2018 Subsequent hospital visit by physician [facility] Comment on above: Arrived Start: 11-13-2018 End: 11-13-2018 Letter encounter Milton Martinezzger Work Phone: [facility] Start: 11-13-2018 End: 11-13-2018 Office outpatient visit 25 minutes Milton Leos Work Phone: [facility] Medicine Comment on above: Yola-Danlos syndro me (Primary Dx); Instability of shoulder joint, unspecified laterality; Recurrent dislocation, left shoulder; Fibromyalgia; Trapezius muscle spasm; Anxiety Start: 11-07-2018 End: 11-07-2018 Letter encounter Provider Trey [facility] Start: 11-07-2018 End: 11-07-2018 Emergency department patient visit Milton Martinezzger [facility] Start: 10-29-2018 End: 10-29-2018 Letter encounter Milton Leos Work Phone: [facility] Medicine Start: 10-20-2018 End: 10-20-2018 Telephone encounter Annmarie [facility] Comment on above: Other Start: 09-22-2018 End: 09-22-2018 Emergency department patient visit Fabien Huitron Work Phone: [facility] Emergency Department Comment on above: Oral aphthous ulcer (Primary Dx) Start: 08-18-2018 End: 08-18-2018 Telephone encounter Milton Leos Work Phone: [facility] Medicine Comment on above: Results Start: 07-15-2018 End: 07-15-2018 Telephone encounter Annmarie Brunswicksocorro [facility] Comment on above: Order Request Start: 07-01-2018 End: 07-01-2018 Patient encounter procedure Alexis Villarreal Chester Work Phone: [facility] Comment on above: Knee meniscus pain, right; Tear of MCL (medial collateral ligament) of knee, right, initial encounter Start: 06-22-2018 End: 06-22-2018 Emergency department patient visit Pedro Baxter Chen Work Phone: [facility] Emergency Department Comment on above: Intractable vomiting with nausea, unspecified vomiting type (Primary Dx) Start: 06-18-2018 End: 06-18-2018 Documentation procedure Nury Agudelo [facility] [place] Start: 06-16-2018 End: 06-16-2018 Emergency department patient visit Fabien Leoncio Arriagaer Work Phone: [facility] Department Comment on above: Non-intractable vomi ting with nausea, unspecified vomiting type (Primary Dx); Dehydration Start: 06-16-2018 End: 06-16-2018 [facility]: Referral Start: 06-12-2018 End: 06-12-2018 Telephone encounter Annmarie [facility] Comment on above: Nausea Start: 06-09-2018 End: 06-09-2018 Patient encounter procedure Other Other [facility] Start: 06-09-2018 End: 06-09-2018 Office outpatient new 20 minutes Alexis Gulshanarjun Chester Work Phone: [facility] [place] Comment on above: Knee meniscus pain, right (Primary Dx); Tear of MCL (medial collateral ligament) of knee, right, initial encounter Start: 04-11-2018 End: 04-11-2018 Letter encounter Milton Leos Work Phone: [facility] Start: 04-11-2018 End: 04-11-2018 Patient encounter procedure Milton Leos Work Phone: [facility] Comment on above: Encounter for routin e child health examination without abnormal findings (Primary Dx) Start: 02-16-2018 End: 02-16-2018 Emergency department patient visit Fabien Martini Work Phone: [facility] Start: 02-07-2018 End: 02-07-2018 Patient encounter procedure Annmarie [facility] Medicine Comment on above: Anxiety Start: 02-07-2017 End: 02-07-2017 Ambulatory Milton Leos Work Phone: [facility] Start: 01-28-2017 End: 01-28-2017 Ambulatory Milton Leos Work Phone: [facility] Start: 10-16-2016 End: 10-16-2016 Patient encounter procedure Milton Leos Work Phone: [facility] Start: 10-01-2016 End: 10-02-2016 Ambulatory MILTON LEOS [facility] Start: 10-01-2016 End: 06-01-2019 Patient encounter status Corona Malcom Martinezzger [facility] Procedures Date Procedure Procedure Detail Performing Clinician Start: 11-19-[address] Maribell Yang DO Work Phone: Start: 10-27-2024 Us preg uterus real time f/u trnsabdl per fetus Loyd Prado MD Work Phone: Start: 09-29-2024 Echo tthrc r-t 2d w/wom-mode compl spec&colr d Loyd Prado MD Work Phone: Start: 09-08-2024 Basic metabolic panel calcium total Anne-Marie Bernstein MD Work Phone: Start: 09-08-2024 Complete blood count with white cell differential, automated Anne-Marie Bernstein MD Work Phone: Start: 09-08-2024 Urinalysis, reagent strip without microscopy Anne-Marie Bernstein MD Work Phone: Start: 09-01-2024 Us preg uterus w/detail russel 1st gestation Huy Flores MD Work Phone: Start: 05-26-2024 Iaadiadoo influenza Kai Wylie PHARMACOLOGY TEACHER-[employer] Work Phone: Start: 05-26-2024 SARS-CoV-2 (COVID-19) RNA [Presence] in Unspecified specimen by GISSELLE with probe detection Kai Wylie PHARMACOLOGY TEACHER-[employer] Work Phone: Start: 05-26-2024 Urine test visual color cmprsn meths Kai Wylie PHARMACOLOGY TEACHER-[employer] Work Phone: Start: 04-19-2024 Iaadiadoo influenza Lindsey Ritchie PHARMACOLOGY TEACHER-[employer] Work Phone: Start: 04-19-2024 SARS-CoV-2 (COVID-19) RNA [Presence] in Unspecified specimen by GISSELLE with probe detection Lindsey Ritchie PHARMACOLOGY TEACHER-[employer] Work Phone: Start: 11-28-2023 Ecg routine ecg w/least 12 lds w/i&r Meme Prasad MD Work Phone: Start: 11-28-2023 Radiologic exam chest single view Meme Prasad MD Work Phone: Start: 09-15-2023 Gonadotropin chorionic qualitative Jazzmine Elza Forrest PHARMACOLOGY TEACHER-[employer] Work Phone: Start: 09-15-2023 Urinalysis microscopic only Jazzmine M Beverley ol PHARMACOLOGY TEACHER-[employer] Work Phone: Start: 09-15-2023 Urinalysis, reagent strip without microscopy Jazzmine Elza Forrest PHARMACOLOGY TEACHER-[employer] Work Phone: Start: 07-23-2023 Ct abdomen & pelvis w/o contrast material Norm Smith PA-C Work Phone: Start: 07-23-2023 Urinalysis microscopic only Norm ugalde PA-C Work Phone: Start: 07-23-2023 Urinalysis, reagent strip without microscopy Norm ARELLANO-C Work Phone: Start: 07-23-2023 C-reactive protein Norm Smith PA-C Work Phone: Start: 07-23-2023 Complete blood count with white cell differential, automated Norm ARELLANO-C Work Phone: Start: 07-23-2023 Comprehensive metabolic panel Norm Smith PA-C Work Phone: Start: 07-19-2023 Blood group typing, RH phenotyping Juan Domingo DO Work Phone: Start: 07-19-2023 Urine test visual color cmprsn meths aJna Sanchez MD Work Phone: Start: 04-04-2023 Us pelvic nonobstetric real-time image complete [employer] PA-C Work Phone: Start: 04-04-2023 Culture bacterial quanttative colony count urine Qiana Torre PA-C Work Phone: Start: 04-04-2023 Urinalysis, reagent strip without microscopy Qiana EMED Co PA-C Work Phone: Start: 04-04-2023 End: 04-04-2023 Albumin serum plasma/whole blood [employer] PA-[employer] Work Phone: Start: 04-04-2023 Complete blood count with white cell differential, automated [employer] PA-[employer] Work Phone: Start: 11-12-2022 Adult depression screening assessment Patti Song PT Start: 09-13-2022 Us breast uni real time with image limited Kaylynn Parish PHARMACOLOGY TEACHER-[employer] Work Phone: Start: 08-23-2022 Radiologic examination knee 1/2 views Kevin Luna PAC Work Phone: Start: 07-05-2022 Mri any jt lower extrem w/o contrast matrl Sulema Lazar MD Work Phone: Start: 06-14-2022 Radiologic examination knee 3 views Sulema Lazar MD Work Phone: Start: 05-14-2022 Radiologic examination knee 3 views Roosevelt Gonzalez MD Work Phone: Start: 01-04-2022 Assay of thyroid stimulating hormone tsh Jazzmine Clayton PHARMACOLOGY TEACHER-[employer] Work Phone: Start: 01-04-2022 Complete blood count with white cell differential, automated Jazzmine Clayton APRN-[employer] Work Phone: Start: 01-04-2022 Radiologic exam chest 2 views Jazzmine Clayton PHARMACOLOGY TEACHER-[employer] Work Phone: Start: 01-04-2022 Ecg routine ecg w/least 12 lds trcg only w/o i&r Nathaniel Reyes MD Work Phone: Start: 01-03-2022 Gonadotropin chorionic qualitative Qiana Piedad Torre PA-C Work Phone: Start: 01-03-2022 End: 01-03-2022 Urinalysis microscopic only Qiana Torre PA-C Work Phone: Start: 01-03-2022 Urinalysis, reagent strip without microscopy Qiana Herbert Torre PA-C Work Phone: Start: 01-03-2022 Quantitative PCR analysis Qiana Torre PA -C Work Phone: Start: 01-03-2022 Albumin serum plasma/whole blood Qiana Herbert Torre PA-C Work Phone: Start: 01-03-2022 Complete blood count with white cell differential, automated Qiana Torre PA-C Work Phone: Start: 12-05-2021 Urnls dip stick/tablet rgnt auto w/o microscopy Natalie Smalls CNP Work Phone: Start: 11-14-2021 Adult depression screening assessment Natalie Smalls CNP Work Phone: Start: 02-07-2021 Iaadiadoo influenza Milton Leos MD Work Phone: Start: 08-08-2020 Culture bacterial quanttative colony count urine Milton Leos MD Work Phone: Start: 08-08-2020 Urnls dip stick/tablet rgnt auto w/o microscopy Milton Leos MD Work Phone: Start: 06-17-2020 Ct abdomen & pelvis w/o contrast material Pedro Siddiqui MD Work Phone: Start: 06-17-2020 End: 06-17-2020 Comprehensive metabolic panel Pedro Siddiqui MD Work Phone: Start: 06-17-2020 Hepatic function panel Pedro Siddiqui MD Work Phone: Start: 06-17-2020 Urnls dip stick/tablet reagent auto microscopy Pedro Siddiqui MD Work Phone: Start: 05-17-2020 Radiologic exam chest single view Richar Hurtado Work Phone: Start: 05-17-2020 Basic metabolic 2000 panel - Serum or Plasma Richar Hurtado Work Phone: Start: 05-17-2020 Complete blood count with white cell differential, automated Richar Hurtado Work Phone: Start: 05-17-2020 Complete blood count with white cell differential, manual Richar Hurtado Work Phone: Start: 05-17-2020 D-dimer assay, quantitative Richar Hurtado Work Phone: Start: 05-17-2020 Hepatic function 2000 panel - Serum or Plasma Richar Hurtado Work Phone: Start: 05-17-2020 Lipase [Enzymatic activity/volume] in Serum or Plasma Richar Hurtado Work Phone: Start: 05-17-2020 Troponin measurement Richar Hurtado Work Phone: Start: 05-17-2020 12 lead ECG Richar Hurtado Work Phone: Start: 03-15-2020 Culture bacterial quanttative colony count urine Milton Leos Work Phone: Start: 03-15-2020 Urnls dip stick/tablet rgnt auto w/o microscopy Milton Leos Work Phone: Start: 02-15-2020 Culture bacterial quanttative colony count urine Milton Leos Work Phone: Start: 02-15-2020 Urnls dip stick/tablet rgnt auto w/o microscopy Milton Leos Work Phone: Start: 02-03-2020 Culture bacterial quanttative colony count urine Milton Leos Work Phone: Start: 02-03-2020 Urnls dip stick/tablet rgnt auto w/o microscopy Milton Leos Work Phone: Start: 12-17-2019 History of operative procedure on knee S/P MCL repair - right knee, Dr. Joy, 10/14/2019 Corona Malcom Leos & Kun Nurse Start: 12-17-2019 Iadna chlamydia trachomatis amplified probe tq Milton Leos Work Phone: Start: 12-17-2019 Iadna trichomonas vaginalis amplified probe tech Milton Dafne Work Phone: Start: 12-17-2019 Screening test visual acuity quantitative bilat Milton Leos Work Phone: Start: 10-14-2019 Radiologic examination knee 1/2 views Mary Miguel Work Phone: Start: 10-14-2019 Choriogonadotropin ( test) [Presence] in Urine Catrachito Pryor Work Phone: Start: 06-11-2019 Culture bacterial quanttative colony count urine Milton Leos Work Phone: Start: 06-11-2019 Urnls dip stick/tablet rgnt auto w/o microscopy Milton Hoople Work Phone: Start: 05-19-2019 Basic metabolic panel calcium ionized John Ni Sushma Work Phone: Start: 05-19-2019 Albumin serum plasma/whole blood John Ordaz Work Phone: Start: 05-19-2019 Urnls dip stick/tablet rgnt auto w/o microscopy John Ordaz Work Phone: Start: 05-19-2019 Blood count complete auto&auto difrntl wbc John Ordaz Work Phone: Start: 04-20-2019 MRI of brain and brain stem Milton camacho Work Phone: Start: 04-06-2019 Antinuclear antibodies cheko Milton Leos Work Phone: Start: 04-06-2019 Assay of thyroid stimulating hormone tsh Milton Leos Work Phone: Start: 04-06-2019 Rheumatoid factor qualitative Milton Leos Work Phone: Start: 04-06-2019 Rheumatoid factor quantitative Milton Leos Work Phone: Start: 04-06-2019 Sedimentation rate rbc automated Milton Leos Work Phone: Start: 03-23-2019 Influenza virus A AND B antigen assay Pedro Sahil Chen Work Phone: Start: 03-23-2019 Streptococcus pyogenes Ag [Presence] in Throat Pedro Sahil Chen Work Phone: Start: 03-23-2019 Complete blood count with white cell differential, automated Pedro Baxter Chen Work Phone: Start: 03-23-2019 Complete blood count with white cell differential, manual Pedro Sahil Chen Work Phone: Start: 03-23-2019 Comprehensive metabolic 2000 panel - Serum or Plasma Pedro Sahil Chen Work Phone: Start: 03-23-2019 Heterophile Ab [Presence] in Serum Pedro Sahil Chen Work Phone: Start: 12-15-2018 Ct abdomen & pelvis w/contrast material Eun Cadena Work Phone: Start: 12-15-2018 Basic metabolic 1998 panel - Serum or Plasma Eun Cadena Work Phone: Start: 12-15-2018 Complete blood count with white cell differential, automated Eun Cadena Work Phone: Start: 12-15-2018 Complete blood count with white cell differential, manual Eun Cadena Work Phone: Start: 12-15-2018 Hepatic function 2000 panel - Serum or Plasma Eun Cadena Work Phone: Start: 12-15-2018 LIGHT BLUE TOP Eun Cadena Work Phone: Start: 12-15-2018 LIGHT GREEN TOP Eun Cadena Work Phone: Start: 12-15-2018 Lipase [Enzymatic activity/volume] in Serum or Plasma Eun Cadena Work Phone: Start: 12-15-2018 RAINBOW DRAW Eun Cadena Work Phone: Start: 12-15-2018 Choriogonadotropin ( test) [Presence] in Urine Eun Cadena Work Phone: Start: 12-15-2018 Urinalysis Enu Cadena Work Phone: Start: 11-21-2018 MRI of shoulder Milton Leos Work Phone: Start: 09-22-2018 Complete blood count with white cell differential, automated Fabien Huitron Work Phone: Start: 09-22-2018 Complete blood count with white cell differential, manual Fabien Huitron Work Phone: Start: 09-22-2018 Heterophile Ab [Presence] in Serum Fabien Huitron Work Phone: Start: 06-22-2018 Basic metabolic 2000 panel - Serum or Plasma Pedro Siddiqui Work Phone: Start: 06-22-2018 Complete blood count with white cell differential, automated Pedro Siddiqui Work Phone: Start: 06-22-2018 Complete blood count with white cell differential, manual Pedro Siddiqui Work Phone: Start: 06-22-2018 Hepatic function 2000 panel - Serum or Plasma Pedro Siddiqui Work Phone: Start: 06-16-2018 Basic metabolic 1998 panel - Serum or Plasma Fabien Huitron Work Phone: Start: 06-16-2018 Choriogonadotropin ( test) [Presence] in Urine Fabien Huitron Work Phone: Start: 06-16-2018 Complete blood count with white cell differential, automated Fabien Huitron Work Phone: Start: 06-16-2018 Complete blood count with white cell differential, manual Fabien Huitron Work Phone: Start: 06-16-2018 TESFAYE TOP Fabien Huitron Work Phone: Start: 06-16-2018 Hepatic function 2000 panel - Serum or Plasma Fabien Huitron Work Phone: Start: 06-16-2018 LAVENDER TOP Fabien Huitron Work Phone: Start: 06-16-2018 LIGHT BLUE TOP Fabien Huitron Work Phone: Start: 06-16-2018 LIGHT GREEN TOP Fabien Huitron Work Phone: Start: 06-16-2018 Lipase [Enzymatic activity/volume] in Serum or Plasma Fabien Huitron Work Phone: Start: 06-16-2018 MINT GREEN TOP Fabien Huitron Work Phone: Start: 06-16-2018 RAINBOW DRAW Fabien Huitron Work Phone: Start: 06-16-2018 Urinalysis Fabien Huitron Work Phone: Start: 06-13-2018 Blood count hematocrit Comment on above: Performed By: #### CD #### Performed at [address] [place] [address] Start: 02-16-2018 End: 02-16-2018 Diagnostic radiography of chest, combined PA and lateral Fabien Martini Work Phone: Start: 02-16-2018 End: 02-16-2018 CBC, EDIF, PLATELET Fabien Martini Work Phone: Start: 02-16-2018 End: 02-16-2018 Comprehensive metabolic panel Fabien Martini Work Phone: Start: 02-16-2018 End: 02-16-2018 Sedimentation rate rbc automated Fabien Martini Work Phone: History of operative procedure on knee S/P knee surgery Kevin Luna PAC Work Phone: History of operative procedure on knee S/P reconstruction of ligament of knee Sulema Lazar MD Work Phone: History of operative procedure on knee S/P knee surgery Kevin Luna PAC Work Phone: History of operative procedure on knee S/P knee surgery Sulema Lazar MD Work Phone: Plan of Treatment Date Care Activity Detail Author Start: 05-27-2029 Tetanus, diphtheria and acellular pertussis vaccination [facility] Start: 05-27-2029 Vaccination for diphtheria, pertussis, and tetanus DTAP Vaccines (5 - Tdap) [facility] Start: 01-02-2026 DTAP/TDAP/TD VACCINE (7 - Td or Tdap) DTAP/TDAP/TD VACCINE (7 - Td or Tdap) [facility] Start: 01-02-2026 DTAP/TDAP/TD VACCINE (7 - Td) DTAP/TDAP/TD VACCINE (7 - Td) [facility] Start: 01-02-2026 Tetanus vaccination [facility] Start: 01-02-2026 Tetanus, diphtheria and acellular pertussis vaccination DTAP VACCINES (7 - Tdap) [facility] Start: 01-02-2026 Vaccination for diphtheria, pertussis, and tetanus DTAP Vaccines (7 - Td or Tdap) [facility] Start: 12-08-2024 End: 12-08-2024 Follow-up encounter [facility] Start: 12-01-2024 RSV VACCINE (1 - Risk 1-dose series) RSV VACCINE (1 - Risk 1-dose series) [facility] Start: 11-02-2024 Influenza vaccination INFLUENZA VACCINE (#1) [facility] Start: 10-27-2024 End: 10-27-2024 Follow-up encounter [facility] Start: 10-27-2024 End: 10-27-2024 Follow-up encounter [facility] Start: 10-07-2024 End: 10-07-2024 Patient encounter procedure 10/07/2024 11:30 AM EDT Office Visit Director [facility] [address] [place] [address] Director [facility] Applications Center [facility] Start: 09-29-2024 End: 09-29-2024 Patient encounter procedure 09/29/2024 10:00 AM EDT Appointment [facility] [address] [place] [address] Loyd Prado MD [address] [facility] [address] [place] [phone] [facility] Start: 09-01-2024 End: 09-01-2025 Echocardiography ECHOCARDIOGRAM Echocardiography Routine Yola-Danlos syndrome type III Expected: 09/01/2024, Expires: 09/01/2025 [facility] Comment on above: Expected: 09/01/2024, Expires: Start: 09-01-2024 End: 09-01-2025 OB ultrasound panel US OB GROWTH/DATING > 14WEEKS Imaging Routine POTS (postural orthostatic tachycardia syndrome) Yola-Danlos syndrome type III Expected: 09/01/2024, Expires: 09/01/2025 [facility] Comment on above: Expected: 09/01/2024, Expires: Start: 2024 Screening for malignant neoplasm of cervix CERVICAL CANCER SCREENING DISCUSSION [facility] Start: 11-13-2023 Depression screening using PHQ-9 (Patient Health Questionnaire 9) score Depression Screening (PHQ-2/9) [facility] Start: 11-03-2023 COVID-19 VACCINE ( season) COVID-19 VACCINE ( season) [facility] Start: 11-03-2023 COVID-19 VACCINE ( season) COVID-19 VACCINE ( season) [facility] Start: 11-03-2023 COVID-19 VACCINE ( season) COVID-19 VACCINE () [facility] Start: 11-03-2023 Influenza vaccination [facility] Start: 07-19-2023 End: 07-19-2023 Laps fulg/exc ovary viscera/peritoneal surface EXCISION/FULGURATION LESION OVARY/PELVIC VISERA/PERITONEAL SURFACE LAPAROSCOPIC Pelvic pain in female Abnormal uterine bleeding 07/19/2023 11:55 AM EDT [facility] Start: 07-09-2023 End: 07-09-2023 Patient encounter procedure 07/09/2023 9:00 AM EDT Office Visit Gastroenterology and Hepatology [facility] [address] [phone] Laureen Hopkins MD [address] [phone] Gastroenterology [facility] Start: 02-01-2023 End: 02-01-2023 Patient encounter procedure 02/01/2023 10:00 AM EST Office Visit [facility] [address] [place] [address] Yina Ahn, ARNOLD [address] [place] [address] [facility] Start: 01-18-2023 End: 01-18-2023 Admission to same day surgery center 01/18/2023 8:50 AM EST - 01/18/2023 9:20 AM EST Surgery [facility] [address] [place] [address] Nancy Edwards MD [address] [place] [address] COLONOSCOPY [facility] Comment on above: COLONOSCOPY Start: 01-18-2023 End: 01-18-2023 Colonoscopy COLONOSCOPY Blood in the stool Generalized abdominal pain 01/18/2023 8:50 AM EST [facility] Start: 01-18-2023 Subsequent hospital visit by physician 01/18/2023 8:50 AM EST Hospital Encounter [facility] [address] [place] [address] Nancy Edwards MD [address] [place] [address] [facility] Start: 12-20-2022 End: 12-20-2022 Patient encounter procedure 12/20/2022 11:00 AM EDT Office Visit Sports Medicine [facility] [place] [address] [address] Sulema Lazar MD [address] [facility] [address] [place] [address] Sports Medicine [facility] Start: 12-13-2022 End: 12-13-2022 Patient encounter procedure 12/13/2022 4:00 PM EDT Office Visit Division of Surgical Oncology [address] [facility] [address], [address] [place] [address] Sahil Brunson III, MD [address] [facility] [address], [address] [place] [address] Division of Surgical Oncology Start: 11-14-2022 Depression screening using PHQ-9 (Patient Health Questionnaire 9) score Depression Screening (PHQ-2/9) [facility] Start: 11-13-2022 End: 11-13-2022 Patient encounter procedure 11/13/2022 2:00 PM EDT [facility] [address] [place] [address] Sulema Lazar MD [address] [place], [place] [id number] Patti Song, PT Discharge Disposition: Home [facility] Start: 11-08-2022 End: 11-08-2022 Patient encounter procedure 11/08/2022 11:15 AM EDT Office Visit Sports Medicine [facility] [address] [place] [id number] Sulema Lazar MD [address] [facility] [address] [place] [address] Sports Medicine [facility] Start: 11-02-2022 COVID-19 VACCINE () COVID-19 VACCINE () [facility] Start: 11-02-2022 Influenza vaccination [facility] Start: 11-02-2022 End: 11-02-2022 Patient encounter procedure [facility] Start: 10-30-2022 End: 10-30-2022 Patient encounter procedure [facility] Start: 10-26-2022 End: 10-26-2022 Patient encounter procedure 10/26/2022 9:30 AM EDT Treatment [facility] [address] [place] [address] Sulema Lazar MD [address] [place] [address] Sarah Mckeon, [facility] Start: 10-23-2022 End: 10-23-2022 Patient encounter procedure 10/23/2022 9:30 AM EDT Treatment [facility] [address] [place] [address] Sulema Lazar MD [address] [place], [place] [id number] Mary Manriquez, [facility] Start: 10-19-2022 End: 10-19-2022 Patient encounter procedure 10/19/2022 10:15 AM EDT Treatment [facility] [address] [place] [phone] Sulema Lazar MD [address] [place] [address] Sarah Mckeon, [facility] Start: 10-19-2022 End: 10-19-2022 Patient encounter procedure 10/19/2022 8:45 AM EDT Treatment [facility] [address] [place] [phone] Sulema Lazar MD [address] [place] [address] Sarah Mckeon, [facility] Start: 10-16-2022 End: 10-16-2022 Patient encounter procedure 10/16/2022 9:30 AM EDT Treatment [facility] [address] [place] [phone] Sulema Lazar MD [address] [place] [address] Patti Song, [facility] Start: 10-12-2022 End: 10-12-2022 Patient encounter procedure 10/12/2022 9:30 AM EDT Treatment [facility] [address] [place] [phone] Sulema Lazar MD [address] [place] [address] Patti Song, [facility] Start: 10-09-2022 End: 10-09-2022 Patient encounter procedure 10/09/2022 9:30 AM EDT Treatment [facility] [address] [place] [phone] Sulema Lazar MD [address] [place] [address] Mary Manriquez, [facility] Start: 10-05-2022 End: 10-05-2022 Patient encounter procedure 10/05/2022 9:30 AM EDT Treatment [facility] [address] [facility] [place] [address] Sulema Lazar MD [address] [place] [address] Natali Hope, [facility] Start: 10-03-2022 End: 10-03-2022 Patient encounter procedure 10/03/2022 8:10 AM EDT Office Visit [facility] [address] [place] [address] Meme Gimenez, [facility] [address] [place] [address] [facility] Start: 10-02-2022 End: 10-02-2022 Patient encounter procedure [facility] Ultrasound Start: 09-28-2022 End: 09-28-2022 Patient encounter procedure 09/28/2022 8:45 AM EDT Treatment [facility] [address] [place] [phone] Sulema Lazar MD [address] [place] [address] Kimo Rojo, BILL Discharge Disposition: Home [facility] Start: 09-27-2022 End: 09-27-2022 Patient encounter procedure 09/27/2022 1:00 PM EDT Office Visit Sports Medicine [facility] Sports Medicine [place] [address] [place] [address] Kevin Luna PAC [address] [place] [address] Sports Medicine [facility] Start: 09-26-2022 End: 09-26-2022 Patient encounter procedure 09/26/2022 8:45 AM EDT Treatment [facility] [address] [place] [address] Sulema Lazar MD [address] [place] [address] Natali Hope [facility] Start: 09-24-2022 End: 09-24-2022 Patient encounter procedure 09/24/2022 8:45 AM EDT Treatment [facility] [address] [place] [phone] Sulema Lazar MD [address] [place] [address] Kimo Rojo [facility] Start: 09-21-2022 End: 09-21-2022 Patient encounter procedure 09/21/2022 8:45 AM EDT Treatment [facility] [address] [place] [phone] Sulema Lazar MD [address] [place] [address] Natali Hope [facility] Start: 09-20-2022 End: 09-20-2022 Patient encounter procedure 09/20/2022 10:45 AM EDT Office Visit [facility] Physician [facility] Obstetrics and Gynecology [address] [place] [address] Giuseppe Hobbs MD [address] [place], [place] [address] [place] [id number] [facility] Physician [facility] Obstetrics and Gynecology Start: 09-19-2022 End: 09-19-2022 Patient encounter procedure [facility] Start: 09-17-2022 End: 09-17-2022 Patient encounter procedure 09/17/2022 8:45 AM EDT Treatment [facility] [address] [place] [phone] Sulema Lazar MD [address] [place] [address] Natali Hope [facility] Start: 09-14-2022 End: 09-14-2022 Patient encounter procedure 09/14/2022 8:45 AM EDT Treatment [facility] [address] [place] [facility] [place] [address] Sulema Lazar MD [address] [place] [address] Natali Hope, [facility] Start: 09-13-2022 End: 09-13-2022 Patient encounter procedure Division of Surgical Oncology Start: 09-12-2022 End: 09-12-2022 Patient encounter procedure 09/12/2022 8:45 AM EDT Treatment [facility] [address] [place] [address] Sulema Lazar MD [address] [place] [address] [facility] Start: 09-10-2022 End: 09-10-2022 Patient encounter procedure [facility] Start: 09-07-2022 End: 09-07-2022 Patient encounter procedure 09/07/2022 8:45 AM EDT Treatment [facility] [address] [place] [address] Sulema Lazar MD [address] [place] [address] Sarah Mckeon, [facility] Start: 09-05-2022 End: 09-05-2022 Patient encounter procedure 09/05/2022 8:45 AM EDT Treatment [facility] [address] [place] [address] Sulema Lazar MD [address] [place] [address] Sarah Mckeon PTA [facility] Start: 09-03-2022 End: 09-03-2022 Patient encounter procedure 09/03/2022 7:15 AM EDT Treatment [facility] [address] [place] [address] Sulema Lazar MD [address] [place] [address] [facility] Start: 08-31-2022 End: 08-31-2022 Patient encounter procedure 08/31/2022 9:30 AM EDT [facility] [address] [place] [address] Sulema Lazar MD [address] [place] [address] Discharge Disposition: Home [facility] Start: 08-23-2022 End: 08-23-2022 Patient encounter procedure 08/23/2022 Office Visit Sports Medicine Kevin Luna, PAC [address] [address] Sports Medicine Toñito Lui [facility] [place] Start: 08-06-2022 End: 08-06-2022 Ligamentous reconstruction knee extra-articular RECONSTRUCTION KNEE LIGAMENTOUS INTRA-ARTICULAR/EXTRA-A RTICULAR Patellar instability of right knee Current tear of semilunar cartilage of right knee, subsequent encounter 08/06/2022 8:42 AM EDT [facility] Start: 07-26-2022 End: 07-26-2022 Admission to same day surgery center 07/26/2022 12:45 PM EDT - 07/26/2022 2:08 PM EDT [facility] Periop [address] [place] [address] Candace Trammell MD [address] [place] [address] CYSTOSCOPY WITH RETROGRADE STONE MANIPULATION STENT INSERTION WITH LASER [facility] Periop Comment on above: CYSTOSCOPY WITH RETROGRADE STONE MANIPUL ATION STENT INSERTION WITH LASER Start: 07-26-2022 End: 07-26-2022 CYSTOSCOPY WITH RETROGRADE STONE MANIPULATION STENT INSERTION WITH LASER CYSTOSCOPY WITH RETROGRADE STONE MANIPULATION STENT INSERTION WITH LASER Right ureteral stone 07/26/2022 12:45 PM EDT [facility] Start: 07-26-2022 Subsequent hospital visit by physician 07/26/2022 12:45 PM EDT Hospital Encounter [facility] Periop [address] [place] [address] Candace Trammell MD [address] [place] [address] [facility] Periop Start: 07-12-2022 End: 07-12-2022 Patient encounter procedure 07/12/2022 Office Visit Sports Medicine Sulema Lazar MD [address] [facility] [address] [place] [address] Sports Medicine [facility] Start: 07-05-2022 End: 07-05-2022 Patient encounter procedure 07/05/2022 Appointment Magnetic Resonance Imaging Sulema Lazar MD [address] [place] [address] Imaging [facility] Start: 06-28-2022 End: 06-28-2022 Patient encounter procedure 06/28/2022 Office Visit Psychiatry Sarabjit Boyce, [employer] [address] [place] [address] [facility] Start: 06-22-2022 End: 06-22-2022 Patient encounter procedure 06/22/2022 Office Visit Surgical Oncology Jose A Robles MD, MPH [address] [place] [address] [address] [place] [address] Division of Surgical Oncology Start: 06-14-2022 End: 06-15-2023 MR Knee - right WO contrast MRI KNEE RIGHT WITHOUT CONTRAST Imaging STAT Right knee pain, unspecified chronicity Expected: 06/14/2022, Expires: 06/15/2023 [facility] Comment on above: Expected: 06/14/2022, Expires: Start: 05-24-2022 End: 05-24-2022 Patient encounter procedure 05/24/2022 Appointment Radiology Yina Ahn, ARNOLD [address] [place] [address] [facility] Start: 05-23-2022 End: 05-23-2022 Patient encounter procedure 05/23/2022 Office Visit Gastroenterology Yina Ahn, AR[place] [address] [place] [address] [facility] Physicians [facility] Gastroenterology Start: 05-01-2022 End: 05-01-2022 Patient encounter procedure 05/01/2022 Office Visit General Surgery Dallin More MD [facility] Rajinder Sotelo [address] [address] [facility] Surgical Specialists Start: 04-25-2022 Subsequent hospital visit by physician [facility] Ultrasound Start: 04-23-2022 End: 04-23-2022 Patient encounter procedure 04/23/2022 Office Visit Gastroenterology Meme Gimenez, [employer] [address] [place] [address] Yina Ahn, ARNOLD [address] [place] [address] [facility] Physicians [facility] Gastroenterology Start: 2022 Hepatitis B vaccination HEP B VACCINE (1 of 3 - 19+ 3-dose series) [facility] Start: 2022 Third diphtheria, tetanus and acellular pertussis (DTaP) vaccination TDAP (ADULT) [facility] Start: 03-07-2022 End: 03-07-2022 Patient encounter procedure 03/07/2022 Office Visit Urology Natalie Smalls, [employer] [address] [place] [address] [facility] Physician Group Urology Start: 01-16-2022 End: 01-16-2022 Patient encounter procedure 01/16/2022 Office Visit Cardiovascular Medicine Pedro Rodriguez MD [address] [place] [address] [facility] Cardiology Start: 12-26-2021 End: 12-26-2021 Patient encounter procedure 12/26/2021 Office Visit Family Medicine Milton Leos MD [address] [place] [id number] [facility] Family Medicine Start: 12-23-2021 History and physical examination, annual for health maintenance Wellness Visit [facility] Start: 12-14-2021 End: 12-14-2021 Patient encounter procedure 12/14/2021 Office Visit Primary Care Meme Gimenez, [employer] [address] [place] [address] [facility] Start: 11-02-2021 Influenza vaccination [facility] Start: 05-10-2021 COVID-19 Vaccine (3 - Booster for Pfizer series) COVID-19 Vaccine (3 - Booster for Pfizer series) [facility] Start: 2021 COVID-19 Vaccine (3 - Booster for Pfizer series) COVID-19 Vaccine (3 - Booster for Pfizer series) [facility] Start: 02-07-2021 End: 02-07-2022 MONONUCLEOSIS SCREEN MONONUCLEOSIS SCREEN Lab Routine Sore throat Expected: 02/07/2021, Expires: 02/07/2022 [facility] Comment on above: Expected: 02/07/2021, Expires: Start: 02-02-2021 End: 02-02-2021 Patient encounter procedure 02/02/2021 Office Visit Sports Medicine Mary Miguel MD [address] [facility] [place] [address] [facility] Orthopedic [facility] Sports Medicine Physicians Start: 01-05-2021 COVID-19 Vaccine (3 - Booster for Pfizer series) COVID-19 Vaccine (3 - Booster for Pfizer series) [facility] Start: 01-05-2021 COVID-19 VACCINE (3 - Pfizer series) COVID-19 VACCINE (3 - Pfizer series) [facility] Start: 12-23-2020 End: 12-23-2020 Office Visit 12/23/2020 Office Visit Family Medicine Milton Leos MD [address] [place] [address] [facility] Medicine Start: 12-16-2020 Screening for Chlamydia trachomatis [facility] Start: 12-08-2020 COVID-19 Vaccine (3 - Pfizer risk series) COVID-19 Vaccine (3 - Pfizer risk series) [facility] Start: 11-02-2020 Influenza vaccination Sequential Influenza Vaccine (#1) [facility] Start: 10-13-2020 End: 10-13-2020 Office Visit [facility] Orthopedi c & Sports Medicine Physicians Start: 04-29-2020 End: 04-29-2020 Treatment 04/29/2020 Treatment Rehabilitation Mary Miguel MD [address] [place] [address] [phone] Lam Jorge, [facility] Start: 04-26-2020 End: 04-26-2020 Treatment 04/26/2020 Treatment Rehabilitation Mary Miguel MD [address] [place] [address] [phone] Lam Jorge, [facility] Start: 04-22-2020 End: 04-22-2020 Treatment 04/22/2020 Treatment Rehabilitation Mary Miguel MD [address] [place] [address] Karuna Ibrahim, [facility] Start: 04-19-2020 End: 04-19-2020 Treatment 04/19/2020 Treatment Rehabilitation Mary Miguel MD [address] [place] [address] Lam Jorge, [facility] Start: 04-15-2020 End: 04-15-2020 Treatment 04/15/2020 Treatment Rehabilitation Mary Miguel MD [address] [place] [address] Karuna Ibrahim, [facility] Start: 2020 End: 2020 Treatment 2020 Treatment Rehabilitation Mary Miguel MD [address] [place] [address] Lam Jorge, [facility] Start: 04-08-2020 End: 04-08-2020 Treatment 04/08/2020 Treatment Mary Black MD [address] [place] [address] Karuna Ibrahim, [facility] Start: 04-05-2020 End: 04-05-2020 Treatment 04/05/2020 Treatment Rehabilitation Mary Miguel MD [address] [place] [address] Lam Jorge, [facility] Start: 04-01-2020 End: 04-01-2020 Treatment 04/01/2020 Treatment Rehabilitation Mary Miguel MD [address] [place] [address] [phone] Lam Jorge, [facility] Start: 03-31-2020 End: 03-31-2020 Office Visit 03/31/2020 Office Visit Sports Medicine Mary Miguel MD [address] [place] [address] [phone] [facility] Orthopedic [facility] Sports Medicine Physicians Start: 03-29-2020 End: 03-29-2020 Treatment [facility] Start: 03-25-2020 End: 03-25-2020 Treatment [facility] Start: 03-24-2020 End: 03-24-2020 Office Visit 03/24/2020 Office Visit Sports Medicine Mary Miguel MD [address] [place] [address] [phone] [facility] Orthopedic [facility] Sports Medicine Physicians Start: 03-22-2020 End: 03-22-2020 Treatment 03/22/2020 Treatment Rehabilitation Mary Miguel MD [address] [place] [address] [phone] Natali Hope, [facility] Start: 03-18-2020 End: 03-18-2020 Treatment 03/18/2020 Treatment Rehabilitation Mary Miguel MD [address] [facility] [place] [address] [phone] Lam Jorge, [facility] Start: 03-15-2020 End: 03-15-2020 Treatment 03/15/2020 Treatment Rehabilitation Mary Miguel MD [address] [facility] [place] [address] [phone] Natali Hope, [facility] Start: 03-11-2020 End: 03-11-2020 Treatment 03/11/2020 Treatment Rehabilitation Mary Miguel MD [address] [facility] [place] [address] [facility] Start: 03-02-2020 End: 03-02-2020 Treatment [facility] Start: 02-29-2020 End: 02-29-2020 Treatment [facility] Start: 02-25-2020 End: 02-25-2020 Treatment 02/25/2020 Treatment Rehabilitation Mary Miguel MD [address] [place] [address] [place] [address] [phone] [facility] Start: 01-29-2020 End: 01-29-2020 Treatment [facility] Start: 01-26-2020 End: 01-26-2020 Treatment 01/26/2020 Treatment Rehabilitation Mary Miguel MD [address] [place] [address] [place] [address] [phone] [facility] Start: 01-22-2020 End: 01-22-2020 Treatment [facility] Start: 01-19-2020 End: 01-19-2020 Treatment 01/19/2020 Treatment Rehabilitation Mary Miguel MD [address] [place] [address] [place] [address] [facility] Start: 01-15-2020 End: 01-15-2020 Treatment 01/15/2020 Treatment Rehabilitation Mary Miguel MD [address] [facility] [place] [address] [phone] 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 [facility] Start: 01-12-2020 End: 01-12-2020 Treatment 01/12/2020 Treatment Mary Black [place] [address] [phone] [facility] Start: 01-08-2020 End: 01-08-2020 Treatment 01/08/2020 Treatment Rehabilitation Mary Miguel MD [address] [place] [address] [phone] 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 Start: 01-05-2020 End: 01-05-2020 Treatment 01/05/2020 Treatment Rehabilitation Mary Miguel MD [address] [place] [address] [place] [address] [phone] [facility] Start: 01-01-2020 End: 01-01-2020 Treatment [facility] Start: 12-31-2019 End: 12-31-2019 Treatment 12/31/2019 Treatment Mary Black MD [address] [place] [address] [place] [address] [phone] 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 Start: 12-28-2019 End: 12-28-2019 Treatment 12/28/2019 Treatment Mary Black MD [address] [place] [address] [place] [address] [phone] Kimo Rojo, [facility] Start: 12-25-2019 End: 12-25-2019 Treatment [facility] Start: 12-24-2019 End: 12-24-2019 Follow-Up [facility] Orthopedi c & Sports Medicine Physicians Start: 12-21-2019 End: 12-21-2019 Treatment 12/21/2019 Treatment Mary Black MD [address] [place] [address] [place] [address] [phone] 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 Start: 12-18-2019 End: 12-18-2019 Treatment 12/18/2019 Treatment Mary Black [place] [address] [phone] Kimo Rojo, [facility] Start: 12-17-2019 End: 12-17-2019 Treatment 12/17/2019 Treatment Rehabilitation Mary Miguel MD [address] [place] [address] 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 Start: 12-14-2019 End: 12-14-2019 Treatment 12/14/2019 Treatment Rehabilitation Mary Miguel MD [address] [place] [address] [facility] Start: 12-11-2019 End: 12-11-2019 Treatment [facility] Start: 12-10-2019 End: 12-10-2019 Treatment 12/10/2019 Treatment Rehabilitation Mary Miguel MD [address] [place] [address] [phone] 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 Start: 12-07-2019 End: 12-07-2019 Treatment 12/07/2019 Treatment Rehabilitation Mary Miguel MD [address] [place] [address] [place] [address] 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 Start: 12-03-2019 End: 12-03-2019 Treatment 12/03/2019 Treatment Mary Black MD [address] [facility] [place] [address] 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 Start: 11-30-2019 End: 11-30-2019 Treatment [facility] Start: 11-27-2019 End: 11-27-2019 Treatment [facility] Start: 11-26-2019 End: 11-26-2019 Follow-Up 11/26/2019 Follow-Up Sports Medicine Mary Miguel MD [address] [place] [address] [facility] Orthopedic [facility] Physicians Start: 11-26-2019 End: 11-26-2019 Treatment 11/26/2019 Treatment Rehabilitation Mary Miguel MD [address] [place] [address] 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 Start: 11-23-2019 End: 11-23-2019 Treatment 11/23/2019 Treatment Rehabilitation Mary Miguel MD [address] [place] [address] [facility] Start: 11-20-2019 End: 11-20-2019 Treatment 11/20/2019 Treatment Rehabilitation Mary Miguel MD [address] [place] [address] 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 Start: 11-19-2019 End: 11-19-2019 Treatment 11/19/2019 Treatment Rehabilitation Mary Miguel MD [address] [place] [address] 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 Start: 11-16-2019 End: 11-16-2019 [facility] Start: 11-12-2019 End: 11-12-2019 Treatment 11/12/2019 Treatment Rehabilitation Mary Miguel MD [address] [place] [address] 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 Start: 11-10-2019 End: 11-10-2019 Treatment 11/10/2019 Treatment Rehabilitation Mary Miguel MD [address] [place] [address] 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 Start: 11-05-2019 End: 11-05-2019 Treatment 11/05/2019 Treatment Rehabilitation Mary Miguel MD [address] [place] [address] 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, [employer]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 [facility] Start: 11-03-2019 Influenza vaccination [facility] Start: 11-03-2019 Influenza vaccination given Sequential Influenza Vaccine (#1) [facility] Start: 10-28-2019 End: 10-28-2019 Follow-Up 10/28/2019 Follow-Up Sports Medicine Mary Miguel MD [address] [place] [address] [phone] [facility] Orthopedic [facility] Physicians Start: 09-18-2019 End: 09-18-2019 Office Visit 09/18/2019 Office Visit Sports Medicine Yumiko Hancock, [employer] [address] [facility] [address] [place], [place] [id number] Mary Miguel MD [address] [place] [address] [phone] [facility] Orthopedic [facility] Medicine Physicians Start: 06-15-2019 End: 06-15-2019 Telemedicine 06/15/2019 Telemedicine Family Medicine Milton Leos MD [address] [place] [facility] [place] [place] [phone] [facility] Family Medicine Start: 05-15-2019 End: 05-15-2019 Office Visit 05/15/2019 Office Visit Family Medicine Milton Leos MD [address] [place] [facility] [place] [phone] [facility] Medicine Start: 2019 COVID-19 Vaccine (1 of 2) COVID-19 Vaccine (1 of 2) [facility] Start: 2019 COVID-19 Vaccine (1) COVID-19 Vaccine (1) [facility] Start: 2019 Meningococcal conjugate vaccination [facility] Work Phone: Start: 2019 Screening for Chlamydia trachomatis CHLAMYDIA SCREEN [facility] Start: 04-06-2019 End: 04-06-2020 MRI of brain and brain stem MRI BRAIN WITHOUT CONTRAST Imaging Routine Intractable chronic paroxysmal hemicrania Expected: 04/06/2019, Expires: 04/06/2020 [employer] [facility] Comment on above: Expected: 04/06/2019, Expires: 1 Start: 11-13-2018 End: 11-14-2019 MRI of shoulder MRI SHOULDER LEFT WITHOUT CONTRAST Imaging Routine Instability of shoulder joint, 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, left shoulder Expected: 11/13/2018, Expires: 11/14/2019 [employer] [facility] Comment on above: Expected: 11/13/2018, Expires: 0 Start: 11-13-2018 End: 11-14-2019 Radiography of shoulder XR SHOULDER LEFT MIN 2 VIEWS Imaging Routine Instability of shoulder joint, unspecified laterality Expected: 11/13/2018, Expires: 11/14/2019 [employer] [facility] Comment on above: Expected: 11/13/2018, Expires: 0 Start: 11-02-2018 Influenza vaccination [facility] Start: 11-02-2018 Influenza vaccination given SEQUENTIAL INFLUENZA VACCINE (#1) [facility] Start: 07-31-2018 End: 07-31-2018 Office Visit 07/31/2018 Office Visit Dentistry [facility] Start: 07-02-2018 End: 07-02-2018 Office Visit 07/02/2018 Office Visit Dentistry [facility] Start: 07-01-2018 End: 07-01-2018 Hospital Encounter [facility] Start: 2018 HIV screening HIV SCREENING DISCUSSION [facility] Start: 2018 HPV VACCINE (1 - 3-dose series) HPV VACCINE (1 - 3-dose series) [facility] Start: 2018 Vaccination for human papillomavirus [facility] Start: 04-11-2018 End: 04-11-2018 Ambulatory 04/11/2018 Office Visit Family Medicine Milton Leos MD [address] [place] [id number] [facility] Start: 11-02-2017 Influenza vaccination INFLUENZA VACCINE (#1) [facility] Work Phone: Start: 11-02-2017 Influenza vaccination given SEQUENTIAL INFLUENZA VACCINE (#1) [facility] Start: 04-18-2017 Hepatitis A immunization HEP A VACCINE (2 of 2 - 2-dose series) [facility] Work Phone: Start: 07-02-2016 DTAP/TDAP/TD VACCINE (4 - Tdap) DTAP/TDAP/TD VACCINE (4 - Tdap) [facility] Work Phone: Start: 2016 HIV screening HIV SCREENING DISCUSSION [facility] Work Phone: Start: 2016 Varicella vaccination [facility] Work Phone: Start: 01-04-2016 DTAP/TDAP/TD VACCINE (6 - Tdap) DTAP/TDAP/TD VACCINE (6 - Tdap) [facility] Start: 2015 Adolescent depression screening assessment Depression Screening (PHQ9) [facility] Start: 2015 COVID-19 VACCINE (1) COVID-19 VACCINE (1) [facility] Start: 2015 Depression screening using PHQ-9 (Patient Health Questionnaire 9) score [facility] Start: 2014 DTAP/TDAP/TD VACCINE (6 - Tdap) DTAP/TDAP/TD VACCINE (6 - Tdap) [facility] Start: 2014 Meningococcal conjugate vaccination [facility] Work Phone: Start: 2014 Vaccination for human papillomavirus HPV VACCINE ADOL (1 - Female 2-dose series) [facility] Work Phone: Start: 2010 DTAP/TDAP/TD VACCINE (1 - Tdap) DTAP/TDAP/TD VACCINE (1 - Tdap) [facility] Work Phone: Start: 2010 Tetanus, diphtheria and acellular pertussis vaccination DTAP VACCINES (1 - Tdap) [facility] Start: 2009 Pneumococcal Vaccine: Ped or At-Risk (1 - PCV) Pneumococcal Vaccine: Ped or At-Risk (1 - PCV) [facility] Start: 2006 History and physical examination, annual for health maintenance Wellness Visit [facility] Start: 2004 Hepatitis A immunization HEPATITIS A VACCINES (1 of 2 - 2-dose series) [facility] Start: 2004 Akrjzcd-judxv-sjuayrl vaccination [facility] Work Phone: Start: 2003 Inactivated poliovirus vaccine (product) [facility] Work Phone: Start: 2003 Adolescent depression screening assessment Depression Screening (PHQ9) [facility] Start: 2003 Depression screening using PHQ-9 (Patient Health Questionnaire 9) score DEPRESSION SCREENING (PHQ9) [facility] Start: 2003 Hepatitis B vaccination [facility] Work Phone: Start: 2003 Hepatitis C screening HEPATITIS C VIRUS SCREENING [facility] Start: 2003 Screening for Chlamydia trachomatis [facility] Start: 2003 Tetanus vaccination TETANUS [facility] CHEKO MULTIPLEX SCRN W ITH REFLEX CHEKO MULTIPLEX SCRN WITH REFLEX Lab Routine Chronic fatigue 04/06/2019 10:54 AM EST [facility] End: 06-16-2018 Bacteria identified Aer cx Nom (Unsp spec) Urine Aerobic Culture Routine Once for 1 Occurrences starting 06/16/2018 until 06/16/2018 [facility] Comment on above: Once for 1 Occurrences starting 06/17/19 19 until 06/16/2018 Bacteria identified Aer cx Nom (Unsp spec) Urine Aerobic Culture Routine 06/16/2018 6:54 PM EDT [facility] Bacteria identified Cx Nom (U) [facility] Bacteria identified in Urine by Culture URINE CULTURE Microbiology STAT 01/03/2022 2:25 PM [facility]T [facility] B[facility] identified in Urine by Culture URINE CULTURE Microbiology Routine 04/04/2023 1:29 PM EST [employer] [facility] End: 09-15-2023 Bacteria identified in Urine by Culture [facility] Comment on above: One Time for 1 Occurrences starting 09/01 until 09/15/2023 CHG US PREG UTERUS R EAL TIME F/U TRNSABDL PER FETUS CHG US PREG UTERUS REAL TIME F/U TRNSABDL PER FETUS OK - OFFICE PERFORMED IMAGING Routine POTS (postural orthostatic tachycardia syndrome) Yola-Danlos syndrome type III Encounter for ultrasound to assess interval growth of fetus 27 weeks gestation of Ordered: 10/27/2024 [facility] Comment on above: Ordered: 10/27/2024 CHG US PREG UTERUS R EAL TIME W/IMAGE DCMTN TRANSVAG CHG US PREG UTERUS REAL TIME W/IMAGE DCMTN TRANSVAG OK - OFFICE PERFORMED IMAGING Routine Encounter for screening for risk of pre-term labor 19 weeks gestation of Ordered: 09/01/2024 [facility] Comment on above: Ordered: 09/01/2024 CHG US PREG UTERUS W/DETAIL RUSSEL 1ST GESTATION CHG US PREG UTERUS W/DETAIL RUSSEL 1ST GESTATION OK - OFFICE PERFORMED IMAGING Routine Yola-Danlos syndrome Encounter for anatomic survey 19 weeks gestation of Ordered: 09/01/2024 [facility] Comment on above: Ordered: 09/01/2024 CHLAMYDIA/GONOCOCCUS , GISSELLE CHLAMYDIA/GONOCOCCUS, GISSELLE Microbiology Routine Encounter for routine child health examination without abnormal findings 12/17/2019 10:20 AM T [facility] End: 02-17-2018 CK CK Routine One Time Morning Lab for 1 Occurrences starting 02/17/2018 until 02/17/2018 [facility] Work Phone: Comment on above: One Time Morning Lab for 1 Occurrences s tarting 02/17/2018 until 02/17/2018 Colonoscopy COLONOSCOPY Bloo d in the stool Generalized abdominal pain [facility] End: 02-17-2018 CRP mass conc C REACTIVE PROTEIN Routine One Time Morning Lab for 1 Occurrences starting 02/17/2018 until 02/17/2018 [facility] Work Phone: Comment on above: One Time Morning Lab for 1 Occurrences s tarting 02/17/2018 until 02/17/[address] cervical spine CT SPINE CE RVICAL WITHOUT CONTRAST Routine 02/16/2018 2:41 PM EST [facility] Work Phone: Diagnostic radiograp hy of chest, combined PA and lateral XR CHEST PA AND LATERAL Routine 02/16/2018 2:41 PM EST [facility] Work Phone: End: 01-03-2022 HOLTER MONITOR - 24 HOUR HOLTER MONITOR - 24 HOUR ECG STAT One Time for 1 Occurrences starting 01/03/2022 until 01/03/2022 [facility] Comment on above: One Time for 1 Occurrences starting 04/2021 until 01/03/2022 Ligamentous reconstruction knee extra-articular RECONSTRUCTION KNEE LIGAMENTOUS INTRA-ARTICULAR/EXTRA-A RTICULAR Patellar instability of right knee [facility] End: 07-27-2022 MR Hip Left Without Contrast MR Hip Left Without Contrast Imaging Routine Tear of left acetabular labrum, subsequent encounter 1 Occurrences starting 07/27/2021 until 07/27/2022 [facility] Work Phone: Comment on above: 1 Occurrences starting 07/27/2021 until 07/27/2022 End: 12-29-2021 MR Hip Right Without Contrast MR Hip Right Without Contrast Imaging Routine Tear of right acetabular labrum, initial encounter 1 Occurrences starting 12/29/2020 until 12/29/2021 [facility] Work Phone: Comment on above: 1 Occurrences starting 12/29/2020 until 12/29/2021 End: 07-27-2022 MR Hip Right Without Contrast MR Hip Right Without Contrast Imaging Routine Tear of right acetabular labrum, initial encounter 1 Occurrences starting 07/27/2021 until 07/27/2022 [facility] Comment on above: 1 Occurrences starting 07/27/2021 until 07/27/2022 End: 06-10-2019 MR Knee Right Without Contrast MR Knee Right Without Contrast Routine Knee meniscus pain, right Tear of MCL (medial collateral ligament) of knee, right, initial encounter 1 Occurrences starting 06/09/2018 until 06/10/2019 [facility] Comment on above: 1 Occurrences starting 06/09/2018 until 06/10/2019 End: 07-01-2018 MR Knee Right Without Contrast MR Knee Right Without Contrast Routine Knee meniscus pain, right Tear of MCL (medial collateral ligament) of knee, right, initial encounter Once for 1 Occurrences starting 07/01/2018 until 07/01/2018 [facility] Comment on above: Once for 1 Occurrences starting 07/02/19 19 until 07/01/2018 MR Knee Right Withou t Contrast MR Knee Right Without Contrast Routine Knee meniscus pain, right Tear of MCL (medial collateral ligament) of knee, right, initial encounter 07/01/2018 7:36 PM EDT [facility] MRI of brain and bra in stem MRI BRAIN WITHOUT CONTRAST Imaging Routine Intractable chronic paroxysmal hemicrania 04/20/2019 3:28 PM EST [facility] End: 11-15-2018 Radiography of shoulder XR SHOULDER LEFT MIN 2 VIEWS Imaging Routine Instability of shoulder joint, unspecified laterality 1 Occurrences starting 11/15/2018 until 11/15/2018 [facility] Comment on above: 1 Occurrences starting 11/15/2018 until 11/15/2018 Radiography of shoulder XR SHOUL BONITA LEFT MIN 2 VIEWS Imaging Routine Instability of shoulder joint, unspecified laterality 11/15/2018 6:48 PM EDT [facility] End: 08-06-2022 RF Hip Single view during surgery [facility] Comment on above: One Time for 1 Occurrences starting 07/2022 until 08/06/2022 End: 03-23-2019 S. pyogenes Org specific cx Ql (Throat) Strep A Culture, Throat Microbiology ELEAZAR Once for 1 Occurrences starting 03/23/2019 until 03/23/2019, 1 completed [facility] Comment on above: Once for 1 Occurrences starting 03/23/19 until 03/23/2019, 1 completed S. pyogenes Org spec ific cx Ql (Throat) Strep A Culture, Throat Microbiology Routine 03/23/2019 7:04 PM EST [facility] End: 04-23-2023 Small bowel series XR Small Bowel Follow Through Imaging Routine Chronic constipation Bloating Nausea 1 Occurrences starting 04/23/2022 until 04/23/2023 [facility] Work Phone: Comment on above: 1 Occurrences starting 04/23/2022 until 04/23/2023 End: 02-16-2018 Standard ECG ECG Routine One Time for 1 Occurrences starting 02/16/2018 until 02/16/2018 [facility] Work Phone: Comment on above: One Time for 1 Occurrences starting 02/01 until 02/16/2018 End: 01-03-2022 Standard ECG ECG ECG STAT One Time for 1 Occurrences starting 01/03/2022 until 01/03/2022 [facility] Work Phone: Comment on above: One Time for 1 Occurrences starting 04/2021 until 01/03/2022 Standard ECG ECG ECG STAT 05/2021 2:13 PM EDT [facility] Standard ECG ECG ECG STAT 10:22 PM EDT [facility] Standard ECG ECG ECG Routine POTS (postural orthostatic tachycardia syndrome) 10/07/2024 11:30 AM EDT [facility] TRICHOMANAS VAGINALI S, GISSELLE TRICHOMANAS VAGINALIS, GISSELLE Fluids Routine Routine screening for STI (sexually transmitted infection) 12/17/2019 10:20 AM [facility] End: 04-17-2023 Ultrasonography guided biopsy of left breast US Breast Biopsy Left Imaging Routine Abnormal finding on imaging Breast lump in upper outer quadrant 1 Occurrences starting 04/17/2022 until 04/17/2023 [facility] Work Phone: Comment on above: 1 Occurrences starting 04/17/2022 until 04/17/2023 End: 10-30-2024 Urinalysis, reagent strip without microscopy URINALYSIS, MACRO Fluids STAT One Time for 1 Occurrences starting 10/30/2024 until 10/30/2024 [facility] Comment on above: One Time for 1 Occurrences starting 10/03 until 10/30/2024 Urinalysis, reagent strip without microscopy URINALYSIS, MACRO Fluids STAT 10/30/2024 8:40 PM EDT [facility] End: 08-06-2022 US Unspecified body region US IMAGING OSC Imaging Routine One Time for 1 Occurrences starting 08/06/2022 until 08/06/2022 [facility] Work Phone: Comment on above: One Time for 1 Occurrences starting 07/2022 until 08/06/2022 End: 10-30-2024 WET PREP GENITAL WET PREP GENITAL Microbiology STAT One Time for 1 Occurrences starting 10/30/2024 until 10/30/2024 [facility] Work Phone: Comment on above: One Time for 1 Occurrences starting 10/03 until 10/30/2024 WET PREP GENITAL WET PREP GENITA L Microbiology STAT 10/30/2024 8:40 PM EDT [facility] XR Knee Right WB OA 4 Views XR Knee Right WB OA 4 Views Routine Knee meniscus pain, right 06/09/2018 11:26 AM EDT [facility] End: 04-23-2023 XR Upper GI With Esophagram XR Upper GI With Esophagram Imaging Routine Chronic constipation Bloating Nausea 1 Occurrences starting 04/23/2022 until 04/23/2023 [facility] Comment on above: 1 Occurrences starting 04/23/2022 until 04/23/2023 Immunizations Immunization Date Immunization Notes Care Provider [facility] 05-18-2024 influenza virus vacc ine, unspecified formulation [facility] M[facility] Ultrasound 2 [facility] 12-23-2020 influenza virus vacc ine, unspecified formulation Meme Gimenez [employer] Work Phone: [facility] 12-17-2019 meningococcal polysaccharide (groups A, C, Y and W-135) diphtheria toxoid conjugate vaccine (MCV4P) [facility] 12-14-2019 meningococcal vaccin e of unknown formulation and unknown serogroups [facility] 12-14-2019 meningococcal polysaccharide vaccine (MPSV4) [facility] 05-28-2019 diphtheria, tetanus toxoids and acellular pertussis vaccine, unspecified formulation [facility] 05-28-2019 meningococcal vaccin e of unknown formulation and unknown serogroups [facility] 10-16-2016 hepatitis A vaccine, pediatric/adolescent dosage, 2 dose schedule; Translations: [havarix] Annmarie Norwood [facility] Work Phone: 01-03-2016 diphtheria, tetanus toxoids and acellular pertussis vaccine [facility] Work Phone: 01-03-2016 hepatitis A vaccine, pediatric/adolescent dosage, 2 dose schedule [facility] Work Phone: 01-03-2016 HPV, unspecified formulation [facility] Work Phone: 01-03-2016 tetanus and diphther ia toxoids, adsorbed, preservative free, for adult use (2 Lf of tetanus toxoid and 2 Lf of diphtheria toxoid) [facility] Work Phone: 01-03-2016 tetanus toxoid, redu ely diphtheria toxoid, and acellular pertussis vaccine, adsorbed [facility] 06-15-2015 human papilloma viru s vaccine, quadrivalent [facility] Work Phone: 06-15-2015 meningococcal oligosaccharide (groups A, C, Y and W-135) diphtheria toxoid conjugate vaccine (MCV4O) [facility] Work Phone: 10-30-2007 diphtheria, tetanus toxoids and acellular pertussis vaccine [facility] 10-30-2007 diphtheria, tetanus toxoids and acellular pertussis vaccine, unspecified formulation [facility] Work Phone: 10-30-2007 measles, mumps and rubella virus vaccine [facility] Work Phone: 10-30-2007 poliovirus vaccine, inactivated [facility] Work Phone: 10-30-2007 varicella virus vaccine [facility] Work Phone: 10-05-2004 diphtheria, tetanus toxoids and acellular pertussis vaccine [facility] 10-05-2004 diphtheria, tetanus toxoids and acellular pertussis vaccine, unspecified formulation [facility] Work Phone: 10-05-2004 haemophilus influenz ae type b vaccine, conjugate unspecified formulation [facility] Work Phone: 10-05-2004 measles, mumps and rubella virus vaccine [facility] Work Phone: 10-05-2004 varicella virus vaccine [facility] Work Phone: 2003 diphtheria, tetanus toxoids and acellular pertussis vaccine [facility] 2003 DTaP-hepatitis B and poliovirus vaccine [facility] Work Phone: 2003 haemophilus influenz ae type b vaccine, conjugate unspecified formulation [facility] Work Phone: 2003 hepatitis B vaccine, pediatric or pediatric/adolescent dosage [facility] Work Phone: 2003 diphtheria, tetanus toxoids and acellular pertussis vaccine [facility] 2003 diphtheria, tetanus toxoids and acellular pertussis vaccine, unspecified formulation [facility] Work Phone: 2003 haemophilus influenz ae type b vaccine, conjugate unspecified formulation [facility] Work Phone: 2003 poliovirus vaccine, inactivated [facility] Work Phone: 2003 diphtheria, tetanus toxoids and acellular pertussis vaccine [facility] 2003 DTaP-hepatitis B and poliovirus vaccine [facility] Work Phone: 2003 haemophilus influenz ae type b vaccine, conjugate unspecified formulation [facility] Work Phone: 2003 hepatitis B vaccine, pediatric or pediatric/adolescent dosage Milton Martinezzger [facility] Work Phone: 2003 hepatitis B vaccine, pediatric or pediatric/adolescent dosage Milton Hoople [facility] Work Phone: Payers Date Payer Category Payer Self-pay 2016 Medicaid (Managed Care) 1.2. [id number] 2003 Unknown [id number] 2.16. 840.1.124164.3.579.2.903 2003 Unknown [id number] 2.16. 840.1.910258.3.579.2.90 2003 Unknown [id number] 2.16. 840.1.894149.3.579.2.903 2003 Unknown [id number] 2.16. 840.1.669699.3.579.2.90 2003 Unknown [id number] 2.16. 840.1.615436.3.579.2.903 2003 Unknown [id number] 2.16. 840.1.230405.3.579.2.903 2003 Unknown [id number] 2.16. 840.1.271511.3.579.2.903 2003 Unknown [id number] 2.16. 840.1.103780.3.579.2.90 2003 Unknown [id number] 2.16. 840.1.380214.3.579.2.903 2003 Unknown [id number] 2.16. 840.1.579494.3.579.2.90 2003 Unknown [id number] 2.16. 840.1.320966.3.579.2.3 2003 Unknown [id number] 2.16. 840.1.212792.3.579.2. 2003 Unknown [id number] 2.16. 840.1.568115.3.579.2. 2003 Unknown [id number] 2.16. 840.1.044705.3.579.2. 2003 Unknown [id number] 2.16. 840.1.854232.3.579.2. 2003 Unknown [id number] 2.16. 840.1.883730.3.579.2. 2003 Unknown [id number] 2.16. 840.1.349519.3.579.2. 2003 Unknown [id number] 2.16. 840.1.967388.3.579.2. 2003 Unknown [id number] 2.16. 840.1.089019.3.579.2. 2003 Unknown [id number] 2.16. 840.1.489610.3.579.2. 2003 Unknown [id number] 2.16. 840.1.504379.3.579.2. 2003 Unknown [id number] 2.16. 840.1.580926.3.579.2. 2003 Unknown [id number] 2.16. 840.1.228208.3.579.2. 2003 Unknown [id number] 2.16. 840.1.165012.3.579.2. 2003 Unknown [id number] 2.16. 840.1.406324.3.579.2. 2003 Unknown [id number] 2.16. 840.1.652348.3.579.2. 2003 Unknown [id number] 2.16. 840.1.280739.3.579.2.903 2003 Unknown [id number] 2.16. 840.1.200649.3.579.2.90 2003 Unknown [id number] 2.16. 840.1.537498.3.579.2.903 2003 Unknown [id number] 2.16. 840.1.591885.3.579.2.3 2003 Unknown [id number] 2.16. 840.1.072374.3.579.2.903 2003 Unknown [id number] 2.16. 840.1.763347.3.579.2. 2003 Unknown [id number] 2.16. 840.1.909204.3.579.2. 2003 Unknown [id number] 2.16. 840.1.669006.3.579.2. 2003 Unknown [id number] 2.16. 840.1.238633.3.579.2. 2003 Unknown [id number] 2.16. 840.1.794732.3.579.2. 2003 Unknown [id number] 2.16. 840.1.265227.3.579.2. 2003 Unknown [id number] 2.16. 840.1.236079.3.579.2. 2003 Unknown [id number] 2.16. 840.1.570741.3.579.2. 2003 Unknown [id number] 2.16. 840.1.566699.3.579.2. 2003 Unknown [id number] 2.16.8 40.1.966881.3.579.2.983 2003 Unknown [id number] 2.16. 840.1.336566.3.579.2.594 2003 Unknown [id number] 2.16. 840.1.118320.3.579.2.594 2003 Unknown [id number] 2.16. 840.1.485076.3.579.2.594 2003 Unknown [id number] 2.16. 840.1.889862.3.579.2.594 2003 Unknown [id number] 2.16. 840.1.439187.3.579.2.594 2003 Unknown [id number] 2.16. 840.1.942087.3.579.2.594 2003 Unknown [id number] 2.16.8 40.1.350963.3.579.2.983 2003 Unknown [id number] 2.16.8 40.1.256389.3.579.2.983 2003 Unknown [id number] 2.16.8 40.1.462406.3.579.2.983 2003 Unknown [id number] 2.16.8 40.1.562596.3.579.2.983 2003 Unknown [id number] 2.16.8 40.1.467433.3.579.2.983 2003 Unknown [id number] 2.16.8 40.1.941946.3.579.2.983 2003 Unknown [id number] 2.16. 840.1.207390.3.579.2.479 2003 Unknown [id number] 2.16. 840.1.443369.3.579.2.902 2002 Unknown [id number] 2. 16.840.1.199532.3.249.13 2002 Unknown [id number] 1.2.840.258781.1.13.385.2.7.3.800596.315 2002 Unknown [id number] 1.2.840.855117.1.13.385.2.7.3.117198.315 2002 Unknown 1.2.840.618858. 1.13.385.2.7.3.275437.315 1977 Unknown [id number] 2.16.8 40.1.180289.3.579.2.900 1977 Unknown [id number] 2.16. 840.1.245236.3.579.2.903 1977 Unknown [id number] 2.16. 840.1.629165.3.579.2.903 Medicaid 1.2.840.416494. 1.13.385.2.7.3.903005.315 Unknown [id number] 2.16.8 40.1.258911.3.579.2.462 Unknown [id number] 2.16.8 40.1.287395.3.579.2.462 Unknown [id number] 2.16.8 40.1.205304.3.579.2.462 Unknown [id number] 2.16.8 40.1.456670.3.579.2.462 Unknown [id number] 2.16.8 40.1.509387.3.579.2.462 Unknown [id number] 2.16.8 40.1.943527.3.579.2.462 Unknown [id number] 2.16.8 40.1.649470.3.579.2.462 Social History Date Type Detail Facility Start: 10-17-2016 End: 02-09-2017 Tobacco smoking status NHIS Unknown if ever smoked [facility] Work Phone: Start: 2003 Sex Assigned At Not on file [facility] Work Phone: Start: 12-11-2017 End: 11-12-2024 Tobacco smoking status NHIS Never smoker [facility] Work Phone: Start: 07-07-2018 End: 09-13-2022 Alcohol intake No [facility] Start: 12-14-2018 End: 04-04-2023 Alcohol intake Current non-drinker of alcohol (finding) [facility] Exposure to SARS-CoV -2 (event) Unable to assess [facility] Start: 07-17-2021 End: 07-26-2022 Exposure to SARS-CoV-2 (event) Not sure [facility] Start: 10-28-2019 End: 09-13-2022 Tobacco use and exposure Never used [facility] Start: 07-27-2021 End: 09-13-2022 Cigarette pack-[facility] Start: 11-10-2021 End: 12-13-2021 History SDOH Alcohol Frequency 2 [facility] Start: 11-10-2021 End: 12-13-2021 History SDOH Alcohol Std Drinks 1 [facility] Start: 11-10-2021 End: 12-13-2021 History SDOH Social Connections Phone 5 [facility] Start: 11-10-2021 End: 12-13-2021 History SDOH Social Connections Living 7 [facility] Start: 11-10-2021 End: 12-13-2021 History SDOH Physical Activity DPW 4 [facility] Start: 11-10-2021 End: 12-13-2021 History SDOH Physical Activity MPS 3 [facility] Within the last year , have you been afraid of your partner or ex-partner? No [facility] Are you now , , , , never or living with a partner? Never [facility] How often to you hav e a drink containing alcohol? Monthly or less [facility] How many standard drinks containing alcohol do you have on a typical day? 1 or 2 [facility] How often do you hav e 6 or more drinks on 1 occasion? Never [facility] How hard is it for y ou to pay for the very basics like food, housing, medical care, and heating Not hard at all [facility] Hospital Do you feel stress - tense, restless, nervous, or anxious, or unable to sleep at night because your mind is troubled all the time - these days [OSQ] Rather much [facility] (I/We) worried wheth er (my/our) food would run out before (I/we) got money to buy more. Never true [facility] Start: 12-19-2017 Gender identity Identifies as female gender (finding) [facility] Start: 12-19-2017 Sexual orientation Heterosexual (finding) [facility] How hard is it for y ou to pay for the very basics like food, housing, medical care, and heating Not very hard [facility] Start: 12-14-2022 End: 05-26-2024 Alcohol intake Current drinker of alcohol (finding) [facility] Start: 12-14-2022 Alcohol Comment occasional/holidays [facility] Start: 03-09-2016 End: 10-31-2024 Sex Female (finding) [facility] Start: 05-26-2024 Alcohol Comment social [facility] Start: 09-01-2024 End: 10-07-2024 Alcoholic beverage intake Ex-drinker (finding) [facility] Start: 05-05-2024 [facility] Start: 2005 Sex Assigned At Female [facility] Medical Equipment Procedure Code Equipment Code Equipment Origin al Text Equipment Identifier Dates Screw 4 X 36mm C maynor Short Thrd - [id number] Start: 10-14-2019 Screw 4 X 40mm C maynor Short Thrd - [id number] Start: 10-14-2019 Screw 4 X 42mm C maynor Short Thrd - [id number] Start: 10-14-2019 Stent 6fr X 26cm Ureter W/O Wire - [id number])[id number]/A, [id number] Start: 07-26-2022 Graft Soft Tissu e 20+ Mmx6+ Mm 8-12mm Anterior Tibialis - [id number] Start: 08-06-2022 Mcfaddin Healix 3. 4mm Peek W Orthocord - [id number] Start: 08-06-2022 [employer]in Healix 3. 4mm Peek W Orthocord - [id number] Start: 08-06-2022 Screw/Sheath Intrafix Advance 8mm X 23mm Br Small - [id number] Start: 08-06-2022 Clinical Notes 06-17-2020 to 12-07-2024 Note Date & Type Note Facility 12-07-2024 Progress note [facility] 11-19-2024 Evaluation note Diagnosis Onset Date Resolution Bipolar 2 disorder acute 2024 12:57pm Yola-Danlos syndrome type III acute November 19, 2024 12:57pm Fibromyalgia acute November 192024 12:57pm Gastroparesis acute November 022024 12:57pm GERD (gastroesophageal reflux disease) acute November 19, 2024 12:57pm Normal echocardiogram acute Sep 2024 12:57pm Personal history of kidney stones acute November 19, 2024 12:57pm POTS (postural orthostatic tachycardia syndrome) acute November 19, 2024 12:57pm acute November 12:57pm Supervision of high-risk acute November 19, 2024 12:57pm UTI in acute 2024 12:57pm [facility] Work Phone: 1(989) 249-509909-18-2025 Evaluation note* Diagnosis Onset Date Resolution Status Admit Date Bipolar 2 disorder acute 2024 12:57pm Yola-Danlos syndrome type III acut e November 19, 2024 12:57pm Fibromyalgia acute November 192024 12:57pm Gastroparesis acute November 022024 12:57pm GERD (gastroesophageal reflu x disease) acute November 19, 2024 12:57pm Normal echocardiogram acute Sep 2024 12:57pm Personal history of kidney stones acute November 19, 2024 12:57pm POTS (postural orthostatic tachycardia syndrome) acute November 19, 2024 12:57pm acute November 12:57pm Supervision of high-risk acute November 19, 2024 12:57pm UTI in acute 2024 12:57pm Bipolar 2 disorder acute 2024 8:14am Yola-Danlos syndrome type III acut e December 07, 2024 8:14am Gastroparesis acute December 8:14am Headache in acute Dec 8:14am Marginal insertion of umbili kaylynn cord acute December 07 8:14am Normal echocardiogram acute Oct 2024 8:14am Personal history of kidney stones acute December 07 8:14am Positive GBS test acute December 07, 2024 8:14am POTS (postural orthostatic tachycardia syndrome) acute December 8:14am acute December 07, 2 025 8:14am Supervision of high-risk acute December 07 8:14am UTI in acute December 07, 2024 8:14am [facility] Work Phone: 1(499) 287-514209-18-2025 Progress [facility] [address] [place] [address], [address] [place] [address] OFFICE VISIT Date of Service: 11/19/24 MR#: [id number] Acct: [id number] Name: ETHAN HIGH Rep #: [id number] : 2005 Provider: Dr. Tamara Yang DO Age/Sex: 19/F Location: [facility] Status: Signed Intake Vital Signs 11/19/24 13:02 Height 5 ft 8.5 in Weight: 176 lb 5 oz BMI 26.4 BP 120/72 Intake Visit Reasons: 30 wk OB DENIS/SM Chief Complaint: 30 Week OB/DENIS Tower Hand Required: No Is patient in pain?: No Allergies coconut Allergy (Intermediate, Verified 11/19/24 13:01) Hives Latex, Natural Rubber Allergy (Intermediate, Verified 11/19/24 13:01) Rash Medications ?Medication ?Instructions ?Recorded ?Confirmed ?Type PNV 153-FA 400 mcg-om3 35 mg-dha tab PO 11/12/2411/12 History 25 mg-epa 5 mg-fish oil chew tablet famotidine 40 mg tablet (Pepcid) 40 mg PO BID 11/12/24 11/12/24 History Last Menstrual Period: 04/21/24 Zika: Zika virus screening: Negative : No PFSH PFSH Medical History Heart murmur Depression Post concussion syndrome Irregular periods (10/01/16) Hematochezia (11/01/20) Deliberate self-cutting (06/08/19) Aphthous ulcer of mouth (11/01/20) Anxiety Anemia Nephrolithiasis Surgical History Hx of laparoscopy History of esophagogastroduodenoscopy (EGD) (~2018) Hx of colonoscopy (~2018) H/O lithotripsy (~2022) S/P breast biopsy, left (04/25/22) H/O right knee surgery (08/06/22) Hx of appendectomy History of tonsillectomy and adenoidectomy (12/04/17) Family History Mother CVA (cerebral vascular accident), Onset Age: 30 Hypertension Maternal Grandmother Diabetes Non-alcoholic micronodular cirrhosis of liver Splenic artery aneurysm Arthritis Maternal Grandfather High cholesterol Hypertension Sister PCOS (polycystic ovarian syndrome) half sister Bipolar 1 disorder half sister Borderline personality disorder Half sister Inappropriate sinus tachycardia half sister Brother Autism half brother Epilepsy half brother Uncle Cancer, Onset Age: 35 skin Social History adopted: No household members: spouse current occupational status: unemployed and student 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 current occupational exposures/hazards: No pets and animals: Yes pets and animals: dog(s) history of recent travel: Yes ( -September) out of state: Yes out of country: No sexually active: Yes Smoking Status: Never smoker alcohol intake: current details: not while substance use type: does not use well-balanced diet: daily or most days caffeine: Yes Type: coffee Number of servings: 1 eating out: rarely or never during the past year weight has: increased > 10 lbs what type of physical activity do you participate in: walking frequency: 5-6 times per week duration: 30-45 minutes/day magdiel/adventism: None seatbelt use: always do you feel safe at home: Yes additional 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 OB Visit HILTON Calculator Estimated Delivery Date Method Current WG Current Estimate 01/26/25 LMP (Uncertain) 30w 2d Comments: HIV: Urine Culture: Sequential Screen: NIPT Screen: Initial Weight: Not Recorded Date -?-?-?-?-?-?-?-?-?-?-?-?- EGA Weight BP Urine Prot -?-?-?-?-?-?-?-?-?-?-?-?- Glucose FHR FuHt Pres Dilation -?-?-?-?-?-?-?-?-?-?-?-?- Effaced St Visit Note 11/19/24 -?-?-?-?-?-?-?-?-?-?-?-?- 30w 2d 176 lb 5 oz 120/72 Nega tive -?-?-?-?-?-?-?-?-?-?-?-?- Negative 146 29 -?-?-?-?-?-?-?-?-?-?-?-?- JV- new DENIS from [facility]. was not happy with care there. Needs follow up growth with [facility]fm for EDS. had low risk nipt. normal glucola. ACOG First Trimester First Trimester: Desire for , Alcohol, Tobacco Cessation, Illicit/Recreational Drug/Substance Use, Intimate Partner Violence, Barriers to care, Unstable Housing, Communication Barriers, Environmental/Work Hazards, Anticipated Course of Care, Nurtrition and weight gain, Toxoplasmosis Precations, Use of Any medications, Sexual activity, Exercise, Dental Care, Sauna/Hot tub use, Seat Belt use, Childbirth classes/Hospital facilities, Travel, Indications for Ultrasound and Screening for Aneuploidy; Discussed Second Trimester Second Trimester: Signs and Symptoms of Labor, Selecting a care provider, Reproductive Life Planning & Contreception, Care Planning, Depression/Anxiety and Intimate Partner Violence; Discussed Tobacco Cessation Third Trimester Third Trimester: Pain Management Plans, Labor support person(s), Immediate Larc, Movement Monitoring, Signs and Symptoms of Preeclampsia and [place] Education ROS Const Denies fever(s) GI Reports as per HPI and Denies abdominal pain Reports as per HPI, Denies abnormal vaginal bleeding, Denies dysuria and Denies vaginal discharge Exam Const General: healthy appearing, comfortable and no acute distress GI Inspection: normal to inspection Palpation: soft and nontender Results POC Urinalysis 2 Dip (Clinic) Office Urine Glucose Negative Last Edit by Mandy Lazar on 11/19/24 13 :10 Office Urine Protein Negative Last Edit by Mandy Lazar on 11/19/24 13 :10 Coding Level of Care Code Off vis,est,level 3 Diagnoses Supervision of high-risk O09.90 Z34.90 Personal history of kidney stones Z87.442 GERD (gastroesophageal reflux disease) K21.9 Fibromyalgia M79.7 Bipolar 2 disorder F31.81 UTI in O23.40 Normal echocardiogram Gastroparesis K31.84 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 POTS (postural orthostatic tachycardia syndrome) G90.A Assessment and Plan Assessment and Plan (1) Supervision of high-risk : Status: Acute Comment: , HILTON 01/26/26, Sahil (2) : Status: Acute Comment: NIPT low risk, gender male-pt unsure if had carrier (3) Personal history of kidney stones: Status: Acute Comment: 3 different times (4) GERD (gastroesophageal reflux disease): Status: Acute (5) Fibromyalgia: Status: Acute (6) Bipolar 2 disorder: Status: Acute (7) UTI in : Status: Acute (8) Normal echocardiogram: Status: Acute Comment: EF 60-65% 09/29/24 [facility] (9) Gastroparesis: Status: Acute Comment: stool softeners (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 Orders: Orders POC Urinalysis 2 Dip (Clinic) Today Culture, Urine Today O09.90 - Supervision of high risk , unspecified, unspecified trimester 11/19/24 1335 e Velde DO> Date _ Maribell Tsang Signature: Date (if applicable) CC: ~ [facility]08-30-2025 Emergency department Note* Carissa Bianchi RN - 10/31/2024 3:34 PM EDT See downtime charting. [facility]08-30-2025 Emergency department Note* Carissa Bianchi RN - 10/31/2024 3:34 PM EDT See downtime charting. [facility] History of Present illness Narrative* Loyd Prado MD - 10/27/2024 8:45 AM EDT Images from the original note were not included. Maternal Medicine Co-Management Visit 10/27/2024 Referring Physician: Jana Sanchez MD, in [place], [place] Delivering Physician: Dr. Sanchez Ethanbita Singh is a 19 y.o. who presents for a return OB visit. Her EDC is EstimatedDate of Delivery: 01/26/25 giving her an EGA of 27 weeks.She reports good activity. She reports no signs or symptoms of urinary tract infection. She denies headaches or blurred vision. Complains of severe dyspepsia Her problem list is as follows: Problem List[1] [facility] CARDIO-OBSTETRICS PROGRAM Ethan Singh is a 19 y.o. female who is referred by Loyd Prado MD for evaluation of congenital heart disease and is currently 24w1d gestation. History of Present Illness The patient presents for evaluation of Yola-Danlos syndrome, POTS, and . She is currently and has been referred to cardiology due to her high- risk Yola-Danlos syndrome. She is under the care of Maternal- Medicine at [facility] and is considering delivery there despite her OB-SCHOOL BUS MECHANIC being in [place]. She prefers not to have an epidural due to previous spinal complications. She has not experienced any fainting episodes during her but feels unwell at times. She is concerned about hemorrhaging during delivery due to her family history. She has a service dog trained to alert her to changes in her heart rate. She was diagnosed with POTS at the age of 6 or 7 and had several echocardiograms during her youth, with the latest one at 12 or 13 years old. An echocardiogram at the [facility] revealed a small hole with minor backflow, which requires monitoring. She reports experiencing fatigue and heat intolerance. Her POTS symptoms have worsened during her , limiting her ability to walk and tolerate heat. She manages her symptoms with high water and salt intake, compression socks, and activity adjustments. EXAM: Vitals: 10/27/24 0939 BP: 119/76 Pulse: 63 Weight: 167 lb 6.4 oz (75.9 kg) Height: 5' 8 (1.727 m) Body mass index is 25.45 kg/m . heart tones present and normal Fundal height is appropriate Below I have attached all procedures associated with today's encounter: Follow-up Growth Summary 1. Berry intrauterine in the Breech presentation with a gestational age of 27w 0d based on the menstrual dates. The HILTON is 01/26/2025. 2. Estimated weight 1043g corresponding to 47% for 27w 0d. 3. Amniotic fluid: Average, with a single deepest pocket of 5.81cm. 4. The placenta is Posterior. Known marginal PCI again visualized today at the edge of the placenta. 5. A full anatomic study was previously performed. 6. Very active fetus. Overall Impression: 1. IUP at 27 weeks gestationwith Estimated Date of Delivery: 01/26/25 2. Yola Danlos Syndrome, type III 3. POTS syndrome 4. Gastroparesis, using stool softeners and occasional laxative. 5. Normal echocardiogram with ejection fraction of 60-65% on September 29, 2024 6. Results of CALL CENTRE SUPERVISOR visit on October 07, 2024 with Lester Duong 7. Fetus growing at 47th percentile with normal amniotic fluid 8. Presently on Macrobid for UTI 9. History of nephrolithiasis IMPRESSION and PLAN per CALL CENTRE SUPERVISOR No problem-specific Assessment & Plan notes found for this encounter. Assessment & Plan 1. Yola-Danlos syndrome: Likely hypermobile type, with no evidence of the vascular type. There is no family history of organrupture and no elevated cardiac risk factors. The reported small heart hole may have closed or could be a PFO, and no special monitoring is needed. The current echocardiogram is normal. The heart murmur is likely benign. There is no need for regular cardiology follow-ups.(Per CALL CENTRE SUPERVISOR) 2. POTS: he patient should maintain her current management, which includes hydration, salt intake, and compression socks. She can contact me if her symptoms worsen during despite her usual management I have not scheduled Ethan Singh for follow-up but remain available if I can be of assistance in any way. [1] Patient Active Problem List Diagnosis Acne vulgaris Yola-Danlos syndrome Anxiety Cervical spine pain Chronic tension-type headache, not intractable Trapezius muscle spasm Fibromyalgia POTS (postural orthostatic tachycardia syndrome) Gastroparesis - probable S/P MCL repair - right knee, Dr. Joy, 10/14/2019 Abdominal pain Chondromalacia Dehydration Headache(784.0) Tired Constipation [facility] History of Present illness Narrative* Loyd Prado MD - 10/27/2024 8:15 AM EDT Follow-up Growth Summary 1. Berry intrauterine in the Breech presentation with a gestational age of 27w 0d based on the menstrual dates. The HILTON is 01/26/2025. 2. Estimated weight 1043g corresponding to 47% for 27w 0d. 3. Amniotic fluid: Average, with a single deepest pocket of 5.81cm. 4. The placenta is Posterior. Known marginal PCI again visualized today at the edge of the placenta. 5. A full anatomic study was previously performed. 6. Very active fetus. documented in this [facility]08-06-2025 History of Present illness Narrative* Mariposa Leon RN - 10/07/2024 11:30 AM EDT Patient Education Patient education regarding the following topic(s) was provided on 10/07/2024: plan of care. Follow-up as needed. Those in attendance for the education included: patient. Barriers in providing the education included: none. The following methods were used in providing the education: explanation and handout. [facility] handoutsgiven included: After visit summary. The response of those in attendance was: applies knowledge and states/identifies education topic. The following Clinical Intervention(s) occurred during today s visit: Extensive teaching provided to patient and or support team regarding plan of care. * Mary Guy, PHARMACOLOGY TEACHER-SOLVENT PLANT OPERATOR - 10/07/2024 11:30 AM EDT [facility] CARDIO-OBSTETRICS PROGRAM Ethan Singh is a 19 y.o. female who is referred by Loyd Prado MD for evaluation of congenital heart disease and is currently 24w1d gestation. History of Present Illness The patient presents for evaluation of Yola-Danlos syndrome, POTS, and . She is currently and has been referred to cardiology due to her high- risk Yola-Danlos syndrome. She is under the care of Maternal- Medicine at [facility] and is considering delivery there despite her OB-SCHOOL BUS MECHANIC being in [place]. She prefers not to have an epidural due to previous spinal complications. She has not experienced any fainting episodes during her but feels unwell at times. She is concerned about hemorrhaging during delivery due to her family history. She has a service dog trained to alert her to changes in her heart rate. She was diagnosed with POTS at the age of 6 or 7 and had several echocardiograms during her youth, with the latest one at 12 or 13 years old. An echocardiogram at the [facility] revealed a small hole with minor backflow, which requires monitoring. She reports experiencing fatigue and heat intolerance. Her POTS symptoms have worsened during her , limiting her ability to walk and tolerate heat. She manages her symptoms with high water and salt intake, compression socks, and activity adjustments. SOCIAL HISTORY Exercise: Limited walking due to symptoms. Diet: High water and salt intake to manage POTS. FAMILY HISTORY - Mother: Severe hemorrhage during childbirth, emergency . - Sister: Hemorrhage during childbirth. - Maternal grandfather: Heart issues. - Maternal great-aunt: Heart murmur. Past Medical History: Diagnosis Date Anemia Anxiety Aphthous ulcer of mouth 11/01/2020 Bipolar 2 disorder Deliberate self-cutting 06/08/2019 Depression Yola-Danlos syndrome Dx age 3 Encounter for routine child health examination without abnormal findings 10/01/2016 Fibromyalgia GERD (gastroesophageal reflux disease) Hematochezia 11/01/2020 Hip pain, acute, unspecified laterality 12/02/2017 Hx of echocardiogram 11/30/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 Added automatically from request for surgery [id number] Irregular periods 10/01/2016 Kidney stone Muscle tension headache 03/18/2017 Nausea and vomiting 11/01/2020 Non-cardiac chest pain 11/01/2020 Pharyngitis 11/01/2020 Post-concussion syndrome 06/21/2016 Postural orthostatic tachycardia syndrome (POTS) Viral gastroenteritis 05/20/2019 Past Surgical History: Procedure Laterality Date EXCISION/FULGURATION LESION OVARY/PELVIC VISERA/PERITONEAL SURFACE LAPAROSCOPIC N/A 07/19/2023 Laterality: N/A; Surgeon: Jana Sanchez MD; Location: [facility] RECONSTRUCTION KNEE LIGAMENTOUS INTRA-ARTICULAR/EXTRA-ARTICULAR Right 08/06/2022 Laterality: Right; Surgeon: Sulema Lazar MD; Location: [facility] PERIOP BREAST BIOPSY Left 04/25/2022 fibroadenoma LITHOTRIPSY 2022 KNEE SURGERY Right 10/14/[address] [facility] OTHER SURGICAL 07/04/2018 gastric emptying with normal results [facility] COLONOSCOPY DIAGNOSTIC 2018 EGD DIAGNOSTIC 2019 APPENDECTOMY LAPAROSCOPIC 12/04/2017 [facility] TONSILLECTOMY ADENOIDECTOMY 01/2010 Gracie isaac. Family History Problem Relation Age of Onset Cancer- Other Mother 20 - 29 cervical Stroke Mother Migraines Mother Mental Illness Mother No known problems Father Other - Specify Sister depression, anxiety, bipolar disorder, ADHD Mental Illness Sister Intellectual Disability/DD/Autism Brother Breast Cancer Maternal Aunt 50 Cancer- Other Maternal Uncle melanoma Hypertension Maternal Grandmother Diabetes Maternal Grandmother Anesth Problems Maternal Grandmother prolonged sedation Aneurysm Maternal Grandmother Splenic aneurysm Hypertension Maternal Grandfather Social History Tobacco Use Smoking status: Never Smokeless tobacco: Never Substance Use Topics Alcohol use: Not Currently Comment: social BP 105/63 (BP Location: Right arm, BP Position: Sitting) Pulse 75 Resp 16 Ht 1.74 m (5' 8.5) Wt 73 kg (161 lb) SpO2 98% BMI 24.12 kg/m Smoking Status Never Cardiovascular: PMI at left midclavicular line. Normal rate. Regular rhythm. Normal S1. Normal S2. Murmurs: There is no murmur. No gallop. No click. No rub. Pulses: Intact distal pulses. Edema: Peripheral edema absent. Current Outpatient Medications: Dicyclomine 20 MG tablet, Take 1 tablet by mouth every 6 hours. For abdominal spasms (Patient not taking: Reported on 05/26/2024), Disp: 12 tablet, Rfl: 0 Ibuprofen 600 MG tablet, Take 1 tablet by mouth every 6 hours as needed for Mild Pain or Moderate Pain., Disp: 60 tablet, Rfl: 0 lisdexamfetamine (Vyvanse) 20 MG capsule, Take by mouth daily every morning. (Patient not taking: Reported on 05/26/2024), Disp: , Rfl: Prenat w/o G-[id number]-[id number]-FA ( vitamin) tablet, Take 1 tablet by mouth daily., Disp: , Rfl: ECG 10/07/2024 Sinus rhythm, normal intervals, no QT prolongation, no pre-excitation, no brugada pattern Results for orders placed during the hospital encounter of 09/29/24 ECHOCARDIOGRAM 09/29/2024 (Final) Interpretation Summary Normal left ventricular chamber size. Normal left ventricular systolic function. Normal regional wall motion. Estimated EF 60-65%. No evidence of diastolic dysfunction. Normal right ventricular chamber size and systolic function. No hemodynamically significant valvular disease. No pericardial effusion. ' IMPRESSION and PLAN No problem-specific Assessment & Plan notes found for this encounter. Assessment & Plan 1. Yola-Danlos syndrome: Likely hypermobile type, with no evidence of the vascular type. There is no family history of organrupture and no elevated cardiac risk factors. The reported small heart hole may have closed or could be a PFO, and no special monitoring is needed. The current echocardiogram is normal. The heart murmur is likely benign. There is no need for regular cardiology follow-ups. 2. POTS: he patient should maintain her current management, which includes hydration, salt intake, and compression socks. She can contact me if her symptoms worsen during despite her usual management Thank you for allowing us to participate in the care of your patient. If you have any concerns or questions, please do not hesitate to contact me. LEDY Jacques, [facility] Adult Congenital Heart Disease and Cardio-Obstetrics Program Office: [phone] The total time spent in this encounter, including pre-charting, [id number] time, review of testing, and post visit documentation, is 31 minutes. [facility] Instructions* Patient Instructions* Mariposa Leon RN - 10/07/2024 11:30 AM EDT Plan from your visit today: As needed. Thank you for choosing [facility] for your cardiac care. If questions or concerns regarding your visit or treatment plan, please call: Adult Congenital Heart Disease Physicians/Providers: MD Caity Santamaria MD Isla McClelland, MD Bo Marshall, MD May Ling Mah, MD ([facility]ICAL ACCESS [facility] only) Jose Beltran MD (CRITICAL ACCESS HOSPITAL only) [facility] Nurse Practitioners: LEDY Jacques APRN- CNP A[facility]Marion FELLOWS: MD Aaron Hernandez MD PRIMARY CONTACT INFORMATION: Adult Congenital Heart Disease Triage Nurses- [facility] Main Line [phone] opt 6; opt 4 phone tree options GASTON Mercado RN Kimberly Madison, RN Pulmonary Hypertension Coordinators- [facility] Sylvia Vail RN GASTON Roth APRN Michaela Schlegel, APRN Adult Congenital Heart Disease Nurse Practitioner- [facility] [phone] opt 6; opt 4 Lester Guy APRN, CNP Trina Cunningham, APRN, CNP MyCharjeannette messaging is often the best way to contact Adult Congenital Heart Disease Drilling Machine Operator- [facility] For appointment scheduling/verification and general information Debbie Collier Main Line Phone Tree [phone] opt7 [facility] Congenital Team Contact for Nurse Practitioner, Nurse and Schedulers Go to the website below for further program information. Check out patient education featuring topics and videos related to adults and adolescents with congenital heart disease and provides valuable information from leading experts. [email or web address] Test results are reviewed at the time of your office visit. If additional testing is ordered, it may take 1-2 weeks for physician review and recommendations. Please call or send a [place] message if you have not received a phone call or message via Kiwilogic with your results/recommendations. Holter/Event Monitors require at least 2 weeks from when you drop off your monitor, for physicians to review. Return recommendations notification may be via Kiwilogic message or phone call. If you have not received your Event/Mobile cardiac lunchroom monitor in the mail when expected, please contact our office [phone] or the device office [phone]. For a monitoring device beingmailed to you, [employer] Monitoring company representative government relations may contact you to verify your mailing address. Please contact [employer] staff directly for any troubleshooting needs with device. Medication Refills are routinely reviewed at your clinic visits. If you know you will be in need ofrefills, please let your providers be aware at time of visit. If in need of refills between visits,please contact our office 48-72 hours ahead of need or send a Kiwilogic message including name of specific medication, dosing, quantity of refill (30 day vs. 90 day supply preference) and name/locationof preferred pharmacy. Outside bloodwork needs faxed to our office for physician review at [phone]. OSUM[facility]codeart is an available tool to securely access your online medical information and communicate with your healthcare team members - please ask to enroll during any [facility] appointment. If you experience a change in your symptoms, please notify this office at [phone] or call 911 if an emergent situation. Please leave your name, date of and question or concern with the nurse line staff if I am unavailable to take your call directly. Kiwilogic is an excellent resource for communication with your providers as well. All calls are prioritized and responses researched, if possible, prior to calls being returned. Calls are reviewed/answered M-F 8am to 4:30pm - with the exception of weekends and holidays when offices are closed. If after hours or weekend concerns, please call - listen for after hours prompts as needed. Please allow 24 hours for your call message to be answered. [facility] patient testing and procedure instructions may be obtained at [email or web address] [facility] Nurse Note* Nursing Notes - Simona Romano RN - 09/08/2024 3:42 PM EDT Discharge instructions reviewed with patient, understanding verbalized. Denies further questions. Printed copy of AVS provided. Ambulatory off unit at this time. [facility]07-08-2025 Miscellaneous Notes* Nursing Notes - Simona Romano RN - 09/08/2024 3:42 PM EDT Discharge instructions reviewed with patient, understanding verbalized. Denies further questions. Printed copy of AVS provided. Ambulatory off unit at this time. * Nursing Notes - Simona Romano RN - 09/08/2024 3:[address] Bernstein notified of lab results. Appropriate for discharge home per physician. * Nursing Notes - Liz Farley RN - 09/08/2024 2:[address] Bernstein notified of pt's arrival, SBAR report given. VO's received. * Nursing Notes - Simona Romano RN - 09/08/2024 2:02 PM EDT FHR 158-162 via doppler. [facility] Nurse Note* Nursing Notes - Simona Romano RN - 09/08/2024 3:[address] Bernstein notified of lab results. Appropriate for discharge home per physician. [facility]07-08-2025 Nurse Note* Nursing Notes - Liz Farley RN - 09/08/2024 2:[address] Bernstein notified of pt's arrival, SBAR report given. VO's received. [facility]07-08-2025 Nurse Note* Nursing Notes - Simona Romano RN - 09/08/2024 2:02 PM EDT FHR 158-162 via doppler. [facility]07-01-2025 History of Present illness Narrative* Loyd Prado MD - 09/01/2024 2:00 PM EDT High Risk Obstetric Consultation September 01, 2024 Referring Physician: Jana Sanchez MD in [place], [place] Reason for Consultation: POTS and Yola Danlos Syndrome History: This 19 y.o. whose EGA is 19 weeks and whose Estimated Date of Delivery: 01/26/25 presents today for initial consultation. She was referred by Jana Sanchez MD for evaluation. PROBLEM LIST: Patient Active Problem List Diagnosis Acne vulgaris Yola-Danlos syndrome Anxiety Cervical spine pain Chronic tension-type headache, not intractable Trapezius muscle spasm Fibromyalgia POTS (postural orthostatic tachycardia syndrome) Gastroparesis - probable S/P MCL repair - right knee, Dr. 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 She has no past medical history of Difficult intubation. Past Surgical History: Pt has a past surgical history that includes tonsillectomy adenoidectomy; appendectomy laparoscopic(12/04/2017); other surgical (07/04/2018); knee surgery (Right, 10/14/2019); reconstruction knee ligamentous intra-articular/extra-articular (Right, 08/06/2022); breast biopsy (Left, 04/25/2022); lithotripsy (2022); colonoscopy diagnostic (2018); egd diagnostic (2018); and excision/fulguration lesion ovary/pelvic visera/peritoneal surface laparoscopic (N/A, 07/19/2023). Social History: Pt reports that she has never smoked. She has never used smokeless tobacco. She reports that she does not currently use alcohol. She reports that she does not use drugs. Family History: Pt's family history includes Anesth Problems in her maternal grandmother; Aneurysm in her maternal grandmother; Breast Cancer (age of onset: 50) in her maternal aunt; Cancer- Other in her maternal uncle; Cancer- Other (age of onset: 20 - 29) in her mother; Diabetes in her maternal grandmother; Hypertension in her maternal grandfather and maternal grandmother; Intellectual Disability/DD/Autism in her brother; Mental Illness in her mother and sister; Migraines in her mother; No known problems in her father; Other - Specify in her sister; Stroke in her mother. Allergies: Latex, Wound dressing adhesive, Coconut oil, Prasterone, and Tape [*tape] Current Medications: Current Outpatient Medications Medication vitamins daily Review of Systems: No fever or chills. No symptoms of depression. No headache. No blurred vision. No dizziness. No nausea or vomiting. No dyspepsia. No palpitations. No dysphagia. No dyspnea. No coughing or wheezing. No backache. No abdominal cramping. No contractions. No dysuria. No bowel dysfunction. No leg pain or cramps. No vaginal bleeding. No unusual vaginal discharge. Physical Exam: VITAL SIGNS: BP 108/67 (BP Location: Left arm, BP Position: Sitting) Pulse 72 Ht 5' 8.6 (1.742m) Wt 150 lb 3.2 oz (68.1 kg) BMI 22.44 kg/m Smoking Status Never BODY MASS INDEX: Body mass index is 22.44 kg/m . GENERAL APPEARANCE: Alert, oriented, and in no apparent distress. HEAD: Normocephalic, atraumatic MOUTH: Mucous membranes moist, pharynx normal without lesions THYROID: No thyromegaly or masses present BREASTS: Not examined LUNGS: Not examined HEART: Not examined PERIPHERAL PULSES: Normal radial pulses. ABDOMEN: Soft, non-tender, no guarding. Fundal height appropriate. BACK: No costovertebral angle tenderness. EXTREMITIES: No discoloration or edema. SKIN: Normal coloration and turgor, no rashes noted LYMPH NODES: No adenopathy palpable NEUROLOGIC: Alert, oriented, normal speech, and deep tendon reflexes normal PELVIC EXAM: Not examined. 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 RECOMMENDATIONS: Try Align and/or Metamucil for gastroparesis Echocardiogram because of Yola danlos Fibromyalgia MATERNAL MEDICINE ULTRASOUND REPORT: Below I have attached a copy of the ultrasound completed today in my office: ULTRASOUND REPORT Complete 2nd Trimester Detailed Summary 1. Berry intrauterine in the Cephalic presentation with a gestational age of 19w 0d based on the menstrual dates. The HILTON is 01/26/2025. 2. Estimated weight 316g corresponding to 87% for 19w 0d. 3. Amniotic fluid: Average, with a single deepest pocket of 5.49cm. 4. The placenta is Posterior. The PCI is Marginal; at edge. 5. Level II survey shows no malformations to the extent of visualization. Cervical Length Transvaginal ultrasound demonstrates a cervical length measurement of 3.38cm. No change with pressure. ULTRASOUND IMPRESSIONS: Ultrasound confirms EDC Normal DVP of amniotic fluid of 5.49 cm The umbilical cord implants a the edge of he placenta Fetus is growing at 87th percentile Reasssuring cervical length of 3.38 cm No major malformations noted, but patient is aware of ultrasound's limitations ULTRASOUND RECOMMENDATIONS: 26 week growth sonogram 32-34 week growth sonogram [facility]U [facility] History of Present illness Narrative* Loyd Prado MD - 09/01/2024 12:45 PM EDT 2nd Trimester Detailed Summary 1. Berry intrauterine in the Cephalic presentation with a gestational age of 19w 0d based on the menstrual dates. The HILTON is 01/26/2025. 2. Estimated weight 316g corresponding to 87% for 19w 0d. 3. Amniotic fluid: Average, with a single deepest pocket of 5.49cm. 4. The placenta is Posterior. The PCI is Marginal; at edge. 5. Level II survey shows no malformations to the extent of visualization. Cervical Length Transvaginal ultrasound demonstrates a cervical length measurement of 3.38cm. No change with pressure. documented in [facility] History of Present illness Narrative* LEDY Oneal - 05/26/2024 10:55 AM EDT Patient: Ethan Singh Patient : 2005 Patient Age: 19 y.o. Today's Date: 05/26/2024 Provider: LEDY Oneal History of Present Illness: Patient here today for evaluation of Chief Complaint Patient presents with Sinus Infection Sinus pressure, sinus pain, right ear pain, and fatigue x2days. Patient presents with nasal congestion and fatigue. She is unsure if she is . She has no documented fevers but states that she works for [employer]. History: Allergies Allergen Reactions Latex Atopic Dermatitis Wound Dressing Adhesive Coconut Oil Rash Prasterone Rash Tape [*Tape] Rash Silk tape Past Medical History: Diagnosis Date Anemia Anxiety Aphthous ulcer of mouth 11/01/2020 Bipolar 2 disorder Deliberate self-cutting 06/08/2019 Depression Yola-Danlos syndrome Dx age 3 Encounter for routine child health examination without abnormal findings 10/01/2016 Fibromyalgia GERD (gastroesophageal reflux disease) Hematochezia 11/01/2020 Hip pain, acute, unspecified laterality 12/02/2017 [facility] of echocardiogram [facility]30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 Added automatically from request for surgery [id number] Irregular periods 10/01/2016 Kidney stone Muscle tension headache 03/18/2017 Nausea and vomiting 11/01/2020 Non-cardiac chest pain 11/01/2020 Pharyngitis 11/01/2020 Post-concussion syndrome 06/21/2016 Postural orthostatic tachycardia syndrome (POTS) Viral gastroenteritis 05/20/2019 Past Surgical History: Procedure Laterality Date EXCISION/FULGURATION LESION OVARY/PELVIC VISERA/PERITONEAL SURFACE LAPAROSCOPIC N/A 07/19/2023 Laterality: N/A; Surgeon: Jana Sanchez MD; Location: [facility] OR RECONSTRUCTION KNEE LIGAMENTOUS INTRA-ARTICULAR/EXTRA-ARTICULAR Right 08/06/2022 Laterality: Right; Surgeon: Sulema Lazar MD; Location: [facility] OSC PERIOP BREAST BIOPSY Left 04/25/2022 fibroadenoma LITHOTRIPSY 2022 KNEE SURGERY Right 10/14/2019 [facility] OTHER SURGICAL 07/04/2018 gastric emptying with normal results [facility] COLONOSCOPY DIAGNOSTIC 2018 EGD DIAGNOSTIC 2019 APPENDECTOMY LAPAROSCOPIC 12/04/2017 [facility] TONSILLECTOMY ADENOIDECTOMY 01/2010 Gracie isaac. Social History Tobacco Use Smoking status: Never Smokeless tobacco: Never Vaping Use Vaping status: Never Used Substance Use Topics Alcohol use: Yes Comment: social Drug use: No Family History Problem Relation Age of Onset Cancer- Other Mother 20 - 29 cervical Stroke Mother Migraines Mother Mental Illness Mother No known problems Father Other - Specify Sister depression, anxiety, bipolar disorder, ADHD Mental Illness Sister Intellectual Disability/DD/Autism Brother Breast Cancer Maternal Aunt 50 Cancer- Other Maternal Uncle melanoma Hypertension Maternal Grandmother Diabetes Maternal Grandmother Anesth Problems Maternal Grandmother prolonged sedation Hypertension Maternal Grandfather Review of Systems: Review of Systems HENT: Positive for congestion, postnasal drip and rhinorrhea. Physical Exam: Vitals: 05/26/24 1058 BP: 130/75 Pulse: 68 Resp: 12 Temp: 98.1 degrees F (36.7 degrees C) TempSrc: Oral SpO2: 100% Weight: 64.9 kg (143 lb) Height: 1.721 m (5' 7.75) Physical Exam Vitals and nursing note reviewed. Constitutional: Appearance: Normal appearance. HENT: Head: Normocephalic. Right Ear: Tympanic membrane, ear canal and external ear normal. Left Ear: Tympanic membrane, ear canal and external ear normal. Nose: Nose normal. Mouth/Throat: Mouth: Mucous membranes are moist. Pharynx: Oropharynx is clear. Cardiovascular: Rate and Rhythm: Normal rate and regular rhythm. Pulses: Normal pulses. Heart sounds: Normal heart sounds. Pulmonary: Effort: Pulmonary effort is normal. Breath sounds: Normal breath sounds. Musculoskeletal: Cervical back: Normal range of motion and neck supple. Skin: General: Skin is warm and dry. Findings: No rash. Neurological: General: No focal deficit present. Mental Status: She is alert. Current Medications: Current Outpatient Medications: Ibuprofen 600 MG tablet, Take 1 tablet by mouth every 6 hours as needed for Mild Pain or Moderate Pain., Disp: 60 tablet, Rfl: 0 Dicyclomine 20 MG tablet, Take 1 tablet by mouth every 6 hours. For abdominal spasms (Patient not taking: Reported on 05/26/2024), Disp: 12 tablet, Rfl: 0 lisdexamfetamine (Vyvanse) 20 MG capsule, Take by mouth daily every morning. (Patient not taking: Reported on 05/26/2024), Disp: , Rfl: Health Maintenance List: Health Maintenance Topic Date Due CHLAMYDIA SCREEN 12/16/2020 GONORRHEA SCREEN 12/16/2020 COVID-19 VACCINE ( season) 2023 CERVICAL CANCER SCREENING DISCUSSION Never done TETANUS 01/02/2026 INFLUENZA VACCINE Completed HEP B VACCINE Completed HPV VACCINE ADOL Completed TDAP (ADULT) Completed HEPATITIS C VIRUS SCREENING Completed HPV VACCINE Completed HIV SCREENING DISCUSSION Addressed PNEUMOCOCCAL VACCINE SERIES Aged Out HEP A VACCINE Discontinued HIB VACCINE Discontinued MCV4 VACCINE Discontinued MMR VACCINE Discontinued VARICELLA VACCINE Discontinued DTAP/TDAP/TD VACCINE Discontinued Assessment & Plan: ICD-10-CM 1. Fatigue, unspecified type R53.83 SARS-COV-2 RAPID ANTIGEN (CLINIC ONLY) POCT INFLUENZA, A B POCT URINE SARS-COV-2 RAPID ANTIGEN (CLINIC ONLY) 2. Positive urine test Z32.01 3. Viral URI J06.9 She did have a + urine test today and this was reviewed with her to follow up from here. She agreed- also reviewed viral etiology with her illness today and her tests were negative and reviewed. There is no clinical indication for ATB use today No follow-ups on file. Patient was advised to call with any questions or concerns. If symptoms worsen patient was advised to follow up in our office or the Emergency Dept. Benefits, risks, contraindications, and complications of recommended treatments were explained the patient understands and agrees to proceed with plan. documented in this [facility]02-16-2025 History of Present illness Narrative* Nandini Neff - 04/19/2024 12:05 PM EST Main historian: self Patient presents with Cough Associated symptoms: body aches, feel like , feverish Onset: 04/18/24 Self treatments: Tylenol Alleviating factors NA Aggravating factors: NA Exposures: work Last visit: NA * Lindsey Ritchie, PHARMACOLOGY TEACHER-[employer] OPERATOR - 04/19/2024 12:05 PM EST DRU Singh 2005 presents to the [facility] with Chief Complaint Patient presents with Cough Main historian: self Patient presents with Cough Associated symptoms: body aches, feel like , feverish Onset: 04/18/24 Self treatments: Tylenol Alleviating factors NA Aggravating factors: NA Exposures: work Last visit: NA History Allergies Allergen Reactions Latex Atopic Dermatitis Wound Dressing Adhesive Coconut Oil Rash Prasterone Rash Tape [*Tape] Rash Silk tape Current Outpatient Medications Medication Sig Dicyclomine 20 MG tablet Take 1 tablet by mouth every 6 hours. For abdominal spasms Elastic Bandages & Supports (Knee Brace Adjustable Hinged) Misc -FIT AND APPLY HINGE KNEE BRACE(Patient not taking: Reported on 09/13/2022) Ibuprofen 600 MG tablet Take 1 tablet by mouth every 6 hours as needed for Mild Pain or Moderate Pain. lisdexamfetamine (Vyvanse) 20 MG capsule Take by mouth daily every morning. Ondansetron 4 MG Tab Dispersible tablet Take 1 tablet by mouth every [address] on tongue oxyCODONE-acetaminophen 5-325 MG per tablet Take 1 tablet by mouth every 6 hours as needed for Severe Pain for up to 3 days. Family History Problem Relation Age of Onset Cancer- Other Mother 20 - 29 cervical Stroke Mother Migraines Mother Mental Illness Mother No known problems Father Other - Specify Sister depression, anxiety, bipolar disorder, ADHD Mental Illness Sister Intellectual Disability/DD/Autism Brother Breast Cancer Maternal Aunt 50 Cancer- Other Maternal Uncle melanoma Hypertension Maternal Grandmother Diabetes Maternal Grandmother Anesth Problems Maternal Grandmother prolonged sedation Hypertension Maternal Grandfather Past Medical History: Diagnosis Date Anemia Anxiety Aphthous ulcer of mouth 11/01/2020 Bipolar 2 disorder Deliberate self-cutting 06/08/2019 Depression Yola-Danlos syndrome Dx age 3 Encounter for routine child health examination without abnormal findings 10/01/2016 Fibromyalgia GERD (gastroesophageal reflux disease) Hematochezia 11/01/2020 Hip pain, acute, unspecified laterality 12/02/2017 [facility]x of echocardiogram 11/[facility] 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 Added automatically from request for surgery [id number] Irregular periods 10/01/2016 Kidney stone Muscle tension headache 03/18/2017 Nausea and vomiting 11/01/2020 Non-cardiac chest pain 11/01/2020 Pharyngitis 11/01/2020 Post-concussion syndrome 06/21/2016 Postural orthostatic tachycardia syndrome (POTS) Viral gastroenteritis 05/20/2019 Past Surgical History: Procedure Laterality Date EXCISION/FULGURATION LESION OVARY/PELVIC VISERA/PERITONEAL SURFACE LAPAROSCOPIC N/A 07/19/2023 Laterality: N/A; Surgeon: Jana Sanchez MD; Location: [facility] RECONSTRUCTION KNEE LIGAMENTOUS INTRA-ARTICULAR/EXTRA-ARTICULAR Right 08/06/2022 Laterality: Right; Surgeon: Sulema Lazar MD; Location: [facility] PERIOP BREAST BIOPSY Left 04/25/2022 fibroadenoma LITHOTRIPSY 2022 KNEE SURGERY Right 10/14/[address] [facility] OTHER SURGICAL 07/04/2018 gastric emptying with normal results [facility] COLONOSCOPY DIAGNOSTIC 2018 EGD DIAGNOSTIC 2019 APPENDECTOMY LAPAROSCOPIC 12/04/2017 [facility] TONSILLECTOMY ADENOIDECTOMY 01/2010 Gracie isaac. Social History Socioeconomic History Marital status: Single Spouse name: Not on file Number of children: Not on file Years of education: 7 Highest education level: Not on file Occupational History Not on file Tobacco Use Smoking status: Never Smokeless tobacco: Never Vaping Use Vaping status: Never Used Substance and Sexual Activity Alcohol use: Yes Drug use: No Sexual activity: Yes Partners: Male control/protection: Condom Other Topics Concern Service Not Asked Blood Transfusions Not Asked Caffeine Concern Not Asked Occupational Exposure No Hobby Hazards No Sleep Concern Not Asked Stress Concern Not Asked Weight Concern Not Asked Special Diet Not Asked Back Care Not Asked Exercise Not Asked Bike Helmet Not Asked Seat Belt Not Asked Domestic Violence No Social History Narrative Not on file Social Drivers of Health Financial Resource Strain: Low Risk (09/13/2022) Overall Financial Resource Strain (CARDIA) Difficulty of Paying Living Expenses: Not very hard Food Insecurity: No Food Insecurity (09/13/2022) Hunger Vital Sign Worried About Running Out of Food in the Last Year: Never true Ran Out of Food in the Last Year: Never true Transportation Needs: No Transportation Needs (09/13/2022) PRAPARE - Transportation Lack of Transportation (Medical): No Lack of Transportation (Non-Medical): No Physical Activity: Insufficiently Active (12/13/2021) Received from [facility] Exercise Vital Sign Days of Exercise per Week: 3 days Minutes of Exercise per Session: 30 min Stress: Stress Concern Present (12/13/2021) Received from [facility] [place] [employer] - Occupational Stress Questionnaire Feeling of Stress : Rather much Social Connections: Socially Isolated (12/13/2021) Received from [facility] Social Connection and Isolation Panel [NHANES] Frequency of Communication with Friends and Family: More than three times a week Frequency of Social Gatherings with Friends and Family: Once a week Attends Caodaism Services: Never Active Member of Clubs or Organizations: No Attends Club or Organization Meetings: Never Marital Status: Never Intimate Partner Violence: Unknown (12/26/2021) Received from [facility] Intimate Partner Violence If you are in a relationship, do you feel safe in that relationship?: Yes If you are in a relationship, do you feel safe in that relationship?: Not currently in a relationship Housing Stability: Not on file ROS Review of Systems 8 systems reviewed with patient, negative unless specifically mentioned in history of present illness PHYSICAL EXAM Visit Vitals BP 117/71 (BP Location: Left arm, BP Position: Sitting) Pulse 90 Temp 99.4 F (37.4 C) (Oral) Ht 1.727 m (5' 8) Wt 61.7 kg (136 lb) LMP 03/26/2024 (Approximate) SpO2 100% BMI 20.68 kg/m Physical Exam Vitals and nursing note reviewed. Constitutional: General: She is not in acute distress. Appearance: Normal appearance. She is well-developed. She is ill-appearing. She is not diaphoretic. HENT: Head: Normocephalic. Right Ear: Tympanic membrane normal. Left Ear: Tympanic membrane normal. Nose: Nose normal. Mouth/Throat: Mouth: Mucous membranes are moist. Pharynx: Oropharynx is clear. Eyes: Pupils: Pupils are equal, round, and reactive to light. Cardiovascular: Rate and Rhythm: Normal rate and regular rhythm. Heart sounds: Normal heart sounds. Pulmonary: Effort: Pulmonary effort is normal. No respiratory distress. Breath sounds: Normal breath sounds. Musculoskeletal: Cervical back: Neck supple. Lymphadenopathy: Cervical: No cervical adenopathy. Skin: General: Skin is warm and dry. Capillary Refill: Capillary refill takes less than 2 seconds. Neurological: General: No focal deficit present. Mental Status: She is alert and oriented to person, place, and time. Psychiatric: Mood and Affect: Mood normal. Behavior: Behavior normal. RESULTS No results found for this or any previous visit (from the past 2 hours). ASSESSMENT/PLAN 1. Influenza 2. Cough, unspecified type Orders Placed This Encounter SARS-COV-2 RAPID ANTIGEN (CLINIC ONLY) POCT INFLUENZA, A B Flu and COVID-19 tests are negative. Patient has a flu-like illness. Discussed supportive home care, [id number] medication. Work note provided. If symptoms worsen patient was advised to follow up in our office, primary care provider or the Emergency Dept. Benefits, Risks, Contraindications, and Complications of recommended treatments were explained. The patient verbalized understanding and agrees to proceed with plan. LEDY Nixon 04/19/2024 documented in this [facility]09-26-2024 Hospital Discharge instructions* Discharge Instructions* Meme Prasad MD - 11/28/2023 10:33 PM EDT Advil, 400 mg, 3 times per day. Return for worsening weakening especially if associated with shortness a breath * Attachments The following attachments cannot be sent through Care Everywhere. * Chest Pain: Musculoskeletal ([place]) documented in this [facility]09-26-2024 Physician Emergency department Note* Meme Prasad MD - 11/28/2023 10:02 PM EDT Emergency Department Report [facility] EMERGENCY DEPARTMENT Service Date:.11/28/23 PCP: Meme Gimenez Chief Complaint: Chief Complaint Patient presents with Chest Pain Pt to ED with c/o CP, SOB, and left arm pain x 1 day. History of POTS, and states I had a hole in my heart, but I'm not sure if that healed up. Pt also c/o passing out last night. Rates CP 06/11. Nomeds taken prior to arrival. HPI Ethan Hernandez is a 18 y.o. female presents to the ED today due to chest pain, 6-7 hour duration. 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 She isn't sure whether she hit her chest. Pain is localized to the left substernal and not associated with diaphoresis.She does not have a history of heart problems. Fever, cough, pleuritic chest pain is not present Review of Systems: Review of Systems Constitutional symptoms: no Fatigue, no fever, no chills. Skin symptoms: Negative except as documented in HPI. ENMT symptoms: Negative except as documented in HPI. Respiratory symptoms: Negative except as documented in HPI. Cardiovascular symptoms: Negative except as documented in HPI. Chest discomfort as above Gastrointestinal symptoms: Negative except for documented as above in the HPI Genitourinary symptoms: Negative except as documented in HPI. Musculoskeletal symptoms: Negative except as documented in HPI. Neurologic symptoms: Negative except as documented in HPI. Remainder of 10 systems, all negative except for mentioned above Past Medical History: Past Medical History: Diagnosis Date Anemia Anxiety Aphthous ulcer of mouth 11/01/2020 Bipolar 2 disorder Deliberate self-cutting 06/08/2019 Depression Yola-Danlos syndrome Dx age 3 Encounter for routine child health examination without abnormal findings 10/01/2016 Fibromyalgia GERD (gastroesophageal reflux disease) Hematochezia 11/01/2020 Hip pain, acute, unspecified laterality 12/02/2017 Hx of echocardiogram 11/30/2015 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 Added automatically from request for surgery [id number] Irregular periods 10/01/2016 Kidney stone Muscle tension headache 03/18/2017 Nausea and vomiting 11/01/2020 Non-cardiac chest pain 11/01/2020 Pharyngitis 11/01/2020 Post-concussion syndrome 06/21/2016 Postural orthostatic tachycardia syndrome (POTS) Viral gastroenteritis 05/20/2019 Past Surgical History: Past Surgical History: Procedure Laterality Date EXCISION/FULGURATION LESION OVARY/PELVIC VISERA/PERITONEAL SURFACE LAPAROSCOPIC N/A 07/19/2023 Laterality: N/A; Surgeon: Jana Sanchez MD; Location: [facility] RECONSTRUCTION KNEE LIGAMENTOUS INTRA-ARTICULAR/EXTRA-ARTICULAR Right 08/06/2022 Laterality: Right; Surgeon: Sulema Lazar MD; Location: [facility] PERIOP BREAST BIOPSY Left 04/25/2022 fibroadenoma LITHOTRIPSY 2022 KNEE SURGERY Right 10/14/[address] [facility] OTHER SURGICAL 07/04/2018 gastric emptying with normal results [facility] COLONOSCOPY DIAGNOSTIC 2018 EGD DIAGNOSTIC 2018 APPENDECTOMY LAPAROSCOPIC 12/04/2017 [facility] TONSILLECTOMY ADENOIDECTOMY 01/2010 Gracie isaac. Allergies: Allergies Allergen Reactions Latex Atopic Dermatitis Wound Dressing Adhesive Coconut Oil Rash Prasterone Rash Tape [*Tape] Rash Silk tape Medications: Patient's Medications New Prescriptions No medications on file Previous Medications DICYCLOMINE 20 MG TABLET Take 1 tablet by mouth every 6 hours. For abdominal spasms ELASTIC BANDAGES & SUPPORTS (KNEE BRACE ADJUSTABLE HINGED) MISC -FIT AND APPLY HINGE KNEE BRACE IBUPROFEN 600 MG TABLET Take 1 tablet by mouth every 6 hours as needed for Mild Pain or Moderate Pain. LISDEXAMFETAMINE (VYVANSE) 20 MG CAPSULE Take by mouth daily every morning. ONDANSETRON 4 MG TAB DISPERSIBLE TABLET Take 1 tablet by mouth every [address] on tongue OXYCODONE-ACETAMINOPHEN 5-325 MG PER TABLET Take 1 tablet by mouth every 6 hours as needed for Severe Pain for up to 3 days. Modified Medications No medications on file Discontinued Medications No medications on file Family History: Family History Problem Relation Age of Onset Cancer- Other Mother 20 - 29 cervical Stroke Mother Migraines Mother Mental Illness Mother No known problems Father Other - Specify Sister depression, anxiety, bipolar disorder, ADHD Mental Illness Sister Intellectual Disability/DD/Autism Brother Breast Cancer Maternal Aunt 50 Cancer- Other Maternal Uncle melanoma Hypertension Maternal Grandmother Diabetes Maternal Grandmother Anesth Problems Maternal Grandmother prolonged sedation Hypertension Maternal Grandfather Social History: Social History Socioeconomic History Marital status: Single Spouse name: Not on file Number of children: Not on file Years of education: 7 Highest education level: Not on file Occupational History Not on file Tobacco Use Smoking status: Never Smokeless tobacco: Never Vaping Use Vaping status: Never Used Substance and Sexual Activity Alcohol use: Yes Drug use: No Sexual activity: Yes Partners: Male control/protection: Condom Other Topics Concern Service Not Asked Blood Transfusions Not Asked Caffeine Concern Not Asked Occupational Exposure No Hobby Hazards No Sleep Concern Not Asked Stress Concern Not Asked Weight Concern Not Asked Special Diet Not Asked Back Care Not Asked Exercise Not Asked Bike Helmet Not Asked Seat Belt Not Asked Domestic Violence No Social History Narrative Not on file Social Determinants of Health Financial Resource Strain: Low Risk (09/13/2022) Overall Financial Resource Strain (CARDIA) Difficulty of Paying Living Expenses: Not very hard Food Insecurity: No Food Insecurity (09/13/2022) Hunger Vital Sign Worried About Running Out of Food in the Last Year: Never true Ran Out of Food in the Last Year: Never true Transportation Needs: No Transportation Needs (09/13/2022) PRAPARE - Transportation Lack of Transportation (Medical): No Lack of Transportation (Non-Medical): No Physical Activity: Insufficiently Active (12/13/2021) Received from [facility] Exercise Vital Sign Days of Exercise per Week: 3 days Minutes of Exercise per Session: 30 min Stress: Stress Concern Present (12/13/2021) Received from [facility] [place] [facility] - Occupational Stress Questionnaire Feeling of Stress : Rather much Social Connections: Socially Isolated (12/13/2021) Received from [facility] Social Connection and Isolation Panel [NHANES] Frequency of Communication with Friends and Family: More than three times a week Frequency of Social Gatherings with Friends and Family: Once a week Attends Caodaism Services: Never Active Member of Clubs or Organizations: No Attends Club or Organization Meetings: Never Marital Status: Never Intimate Partner Violence: Unknown (12/26/2021) Received from [facility] Intimate Partner Violence If you are in a relationship, do you feel safe in that relationship?: Yes If you are in a relationship, do you feel safe in that relationship?: Not currently in a relationship Housing Stability: Not on file Physical Exam: Physical Exam CONST: -Well-developed well-nourished ; -In no acute distress. -Vitals reviewed. EYES: -EOM intact, PHOEBE: -Sclera normal and conjunctiva: clear bilaterally. ENT: - Normal pharynx pink and moist. NECK: -Supple ([id number]). CARD: -Rate and rhythm: Regular -Murmurs: No There is reproducible pain palpating the left costal margin and border. This exactly reproduces thepatient's pain. RESP: -Respiratory effort and chest excursion with respirations: Normal -Breath sounds equal bilaterally: Clear -Wheezes: No -Rales: No BACK: -Flank pain: No -Pain on palpation: No ABD: -Distended: No -Bruits: No -Bowel sounds: Normal. -Deep palpation: Non-tender -Organomegaly palpable: No -Abnormal masses: No EXT: Gross appearance and use of all four extremities: Normal SKIN: -Good turgor warm and dry. -Apparent lesions or rashes: No NEURO: -Patient: alert -Oriented to: person, place and time. -Appearance and judgment: appropriate. -Cranial Nerves: Normal. -Speech: Normal Vital Signs During ED Visit Patient Vitals for the past 24 hrs: BP Temp Temp src Pulse Resp SpO2 Height Weight 11/28/239 -- -- -- -- -- -- 1.727 m (5' 8) 59 kg (130 lb) 11/28/232137 135/84 98 F (36.7 C) Oral 60 18 100 % -- -- Orders/Results: Orders Placed This Encounter XR CHEST 1 VIEW PORTABLE ECG Ibuprofen (MOTRIN) tablet 600 mg Results for orders placed or performed during the hospital encounter of 09/15/23 URINE CULTURE Result Value Ref Range SPECIMEN DESCRIPTION URINE - OTHER UA Dipstick LEUKOCYTE POSITIVE RESULT-CULT NO GROWTH 2 DAYS Report Status 09/18/2023 URINALYSIS, MACRO Result Value Ref Range COLOR, URINE YELLOW YELLOW APPEARANCE, URINE CLEAR CLEAR Specific [place], Urine 1.025 1.010 - 1.025 PH URINE 5.5 5.0 - 7.0 Urine Protein NEGATIVE NEGATIVE mg/dl GLUCOSE, URINE NEGATIVE NEGATIVE mg/dl KETONES, URINE NEGATIVE NEGATIVE mg/dl BILIRUBIN, URINE NEGATIVE NEGATIVE BLOOD, URINE DIPSTICK LARGE (A) NEGATIVE NITRITES, URINE NEGATIVE NEGATIVE UROBILINOGEN, URINE 0.2 0.2 - 1.0 E.U./dL LEUKOCYTE ESTERASE, URINE TRACE (A) NEGATIVE HCG QUALITATIVE, URINE Result Value Ref Range HCG, QUALITATIVE, URINE NEGATIVE NEGATIVE URINE MICROSCOPIC Result Value Ref Range WBC, URINE NEGATIVE NEGATIVE /HPF RBC, URINE TOO NUMEROUS TO COUNT (A) NEGATIVE /HPF Epithelial Cells UA 1 TO 5 /HPF Mucus NEGATIVE NEGATIVE BACTERIA, URINE TRACE (A) NEGATIVE CRYSTALS, URINE NONE NONE CASTS, URINE NONE NONE /LPF COMMENT, URINE REFLEX CULTURE PER ESTABLISHED CRITERIA. Radiographic Imaging XR CHEST 1 VIEW PORTABLE Final Result IMPRESSION: Nonacute portable chest. Procedures: Procedures Moderate Sedation Procedure: No ED Summary/MDM EKG was reviewed and revealed normal sinus rhythm, no acute ST elevations, or other acute changes. Pneumothorax, pneumonia, effusion considered and ruled out via chest x-ray. STEMI considered and ruled out via EKG. Patient has a reproducible chest pain therefore I believe this to be a chest wall contusion or chest wall pain also history of frequent syncope with Pott's disease produces the possibility that she injured it without being aware Clinical Impression: 1. Chest wall pain No follow-ups on file. New Prescriptions No medications on file Discontinued Medications No medications on file An After Visit Summary was printed and given to the patient with above information. . . Meme Prasad MD 11/28/232233 [facility]09-26-2024 Emergency department Note* Meme Prasad MD - 11/28/2023 10:02 PM EDT Emergency Department Report [facility] EMERGENCY DEPARTMENT Service Date:.11/28/23 PCP: Meme Gimenez Chief Complaint: Chief Complaint Patient presents with Chest Pain Pt to ED with c/o CP, SOB, and left arm pain x 1 day. History of POTS, and states I had a hole in my heart, but I'm not sure if that healed up. Pt also c/o passing out last night. Rates CP 06/11. Nomeds taken prior to arrival. HPI Ethan Hernandez is a 18 y.o. female presents to the ED today due to chest pain, 6-7 hour duration. 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 She isn't sure whether she hit her chest. Pain is localized to the left substernal and not associated with diaphoresis.She does not have a history of heart problems. Fever, cough, pleuritic chest pain is not present Review of Systems: Review of Systems Constitutional symptoms: no Fatigue, no fever, no chills. Skin symptoms: Negative except as documented in HPI. ENMT symptoms: Negative except as documented in HPI. Respiratory symptoms: Negative except as documented in HPI. Cardiovascular symptoms: Negative except as documented in HPI. Chest discomfort as above Gastrointestinal symptoms: Negative except for documented as above in the HPI Genitourinary symptoms: Negative except as documented in HPI. Musculoskeletal symptoms: Negative except as documented in HPI. Neurologic symptoms: Negative except as documented in HPI. Remainder of 10 systems, all negative except for mentioned above Past Medical History: Past Medical History: Diagnosis Date Anemia Anxiety Aphthous ulcer of mouth 11/01/2020 Bipolar 2 disorder Deliberate self-cutting 06/08/2019 Depression Yola-Danlos syndrome Dx age 3 Encounter for routine child health examination without abnormal findings 10/01/2016 Fibromyalgia GERD (gastroesophageal reflux disease) Hematochezia 11/01/2020 Hip pain, acute, unspecified laterality 12/02/2017 Hx of echocardiogram 11/30/2015 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 Added automatically from request for surgery [id number] Irregular periods 10/01/2016 Kidney stone Muscle tension headache 03/18/2017 Nausea and vomiting 11/01/2020 Non-cardiac chest pain 11/01/2020 Pharyngitis 11/01/2020 Post-concussion syndrome 06/21/2016 Postural orthostatic tachycardia syndrome (POTS) Viral gastroenteritis 05/20/2019 Past Surgical History: Past Surgical History: Procedure Laterality Date EXCISION/FULGURATION LESION OVARY/PELVIC VISERA/PERITONEAL SURFACE LAPAROSCOPIC N/A 07/19/2023 Laterality: N/A; Surgeon: Jana Sanchez MD; Location: [facility] RECONSTRUCTION KNEE LIGAMENTOUS INTRA-ARTICULAR/EXTRA-ARTICULAR Right 08/06/2022 Laterality: Right; Surgeon: Sulema Lazar MD; Location: [facility] PERIOP BREAST BIOPSY Left 04/25/2022 fibroadenoma LITHOTRIPSY 2022 KNEE SURGERY Right 10/14/[address] [facility] OTHER SURGICAL 07/04/2018 gastric emptying with normal results [facility] COLONOSCOPY DIAGNOSTIC 2019 EGD DIAGNOSTIC 2019 APPENDECTOMY LAPAROSCOPIC 12/04/2017 [facility] TONSILLECTOMY ADENOIDECTOMY 01/2010 Gracie isaac. Allergies: Allergies Allergen Reactions Latex Atopic Dermatitis Wound Dressing Adhesive Coconut Oil Rash Prasterone Rash Tape [*Tape] Rash Silk tape Medications: Patient's Medications New Prescriptions No medications on file Previous Medications DICYCLOMINE 20 MG TABLET Take 1 tablet by mouth every 6 hours. For abdominal spasms ELASTIC BANDAGES & SUPPORTS (KNEE BRACE ADJUSTABLE HINGED) MISC -FIT AND APPLY HINGE KNEE BRACE IBUPROFEN 600 MG TABLET Take 1 tablet by mouth every 6 hours as needed for Mild Pain or Moderate Pain. LISDEXAMFETAMINE (VYVANSE) 20 MG CAPSULE Take by mouth daily every morning. ONDANSETRON 4 MG TAB DISPERSIBLE TABLET Take 1 tablet by mouth every [address] on tongue OXYCODONE-ACETAMINOPHEN 5-325 MG PER TABLET Take 1 tablet by mouth every 6 hours as needed for Severe Pain for up to 3 days. Modified Medications No medications on file Discontinued Medications No medications on file Family History: Family History Problem Relation Age of Onset Cancer- Other Mother 20 - 29 cervical Stroke Mother Migraines Mother Mental Illness Mother No known problems Father Other - Specify Sister depression, anxiety, bipolar disorder, ADHD Mental Illness Sister Intellectual Disability/DD/Autism Brother Breast Cancer Maternal Aunt 50 Cancer- Other Maternal Uncle melanoma Hypertension Maternal Grandmother Diabetes Maternal Grandmother Anesth Problems Maternal Grandmother prolonged sedation Hypertension Maternal Grandfather Social History: Social History Socioeconomic History Marital status: Single Spouse name: Not on file Number of children: Not on file Years of education: 7 Highest education level: Not on file Occupational History Not on file Tobacco Use Smoking status: Never Smokeless tobacco: Never Vaping Use Vaping status: Never Used Substance and Sexual Activity Alcohol use: Yes Drug use: No Sexual activity: Yes Partners: Male control/protection: Condom Other Topics Concern Service Not Asked Blood Transfusions Not Asked Caffeine Concern Not Asked Occupational Exposure No Hobby Hazards No Sleep Concern Not Asked Stress Concern Not Asked Weight Concern Not Asked Special Diet Not Asked Back Care Not Asked Exercise Not Asked Bike Helmet Not Asked Seat Belt Not Asked Domestic Violence No Social History Narrative Not on file Social Determinants of Health Financial Resource Strain: Low Risk (09/13/2022) Overall Financial Resource Strain (CARDIA) Difficulty of Paying Living Expenses: Not very hard Food Insecurity: No Food Insecurity (09/13/2022) Hunger Vital Sign Worried About Running Out of Food in the Last Year: Never true Ran Out of Food in the Last Year: Never true Transportation Needs: No Transportation Needs (09/13/2022) PRAPARE - Transportation Lack of Transportation (Medical): No Lack of Transportation (Non-Medical): No Physical Activity: Insufficiently Active (12/13/2021) Received from [facility] Exercise Vital Sign Days of Exercise per Week: 3 days Minutes of Exercise per Session: 30 min Stress: Stress Concern Present (12/13/2021) Received from [facility] [place] [facility] [employer] [facility] - Occupational Stress Questionnaire Feeling of Stress : Rather much Social Connections: Socially Isolated (12/13/2021) Received from [facility] Social Connection and Isolation Panel [NHANES] Frequency of Communication with Friends and Family: More than three times a week Frequency of Social Gatherings with Friends and Family: Once a week Attends Caodaism Services: Never Active Member of Clubs or Organizations: No Attends Club or Organization Meetings: Never Marital Status: Never Intimate Partner Violence: Unknown (12/26/2021) Received from [facility] Intimate Partner Violence If you are in a relationship, do you feel safe in that relationship?: Yes If you are in a relationship, do you feel safe in that relationship?: Not currently in a relationship Housing Stability: Not on file Physical Exam: Physical Exam CONST: -Well-developed well-nourished ; -In no acute distress. -Vitals reviewed. EYES: -EOM intact, PHOEBE: -Sclera normal and conjunctiva: clear bilaterally. ENT: - Normal pharynx pink and moist. NECK: -Supple ([id number]). CARD: -Rate and rhythm: Regular -Murmurs: No There is reproducible pain palpating the left costal margin and border. This exactly reproduces thepatient's pain. RESP: -Respiratory effort and chest excursion with respirations: Normal -Breath sounds equal bilaterally: Clear -Wheezes: No -Rales: No BACK: -Flank pain: No -Pain on palpation: No ABD: -Distended: No -Bruits: No -Bowel sounds: Normal. -Deep palpation: Non-tender -Organomegaly palpable: No -Abnormal masses: No EXT: Gross appearance and use of all four extremities: Normal SKIN: -Good turgor warm and dry. -Apparent lesions or rashes: No NEURO: -Patient: alert -Oriented to: person, place and time. -Appearance and judgment: appropriate. -Cranial Nerves: Normal. -Speech: Normal Vital Signs During ED Visit Patient Vitals for the past 24 hrs: BP Temp Temp src Pulse Resp SpO2 Height Weight 11/28/232138 -- -- -- -- -- -- 1.727 m (5' 8) 59 kg (130 lb) 11/28/232137 135/84 98 F (36.7 C) Oral 60 18 100 % -- -- Orders/Results: Orders Placed This Encounter XR CHEST 1 VIEW PORTABLE ECG Ibuprofen (MOTRIN) tablet 600 mg Results for orders placed or performed during the hospital encounter of 09/15/23 URINE CULTURE Result Value Ref Range SPECIMEN DESCRIPTION URINE - OTHER UA Dipstick LEUKOCYTE POSITIVE RESULT-CULT NO GROWTH 2 DAYS Report Status 09/18/2023 URINALYSIS, MACRO Result Value Ref Range COLOR, URINE YELLOW YELLOW APPEARANCE, URINE CLEAR CLEAR Specific [place], Urine 1.025 1.010 - 1.025 PH URINE 5.5 5.0 - 7.0 Urine Protein NEGATIVE NEGATIVE mg/dl GLUCOSE, URINE NEGATIVE NEGATIVE mg/dl KETONES, URINE NEGATIVE NEGATIVE mg/dl BILIRUBIN, URINE NEGATIVE NEGATIVE BLOOD, URINE DIPSTICK LARGE (A) NEGATIVE NITRITES, URINE NEGATIVE NEGATIVE UROBILINOGEN, URINE 0.2 0.2 - 1.0 E.U./dL LEUKOCYTE ESTERASE, URINE TRACE (A) NEGATIVE HCG QUALITATIVE, URINE Result Value Ref Range HCG, QUALITATIVE, URINE NEGATIVE NEGATIVE URINE MICROSCOPIC Result Value Ref Range WBC, URINE NEGATIVE NEGATIVE /HPF RBC, URINE TOO NUMEROUS TO COUNT (A) NEGATIVE /HPF Epithelial Cells UA 1 TO 5 /HPF Mucus NEGATIVE NEGATIVE BACTERIA, URINE TRACE (A) NEGATIVE CRYSTALS, URINE NONE NONE CASTS, URINE NONE NONE /LPF COMMENT, URINE REFLEX CULTURE PER ESTABLISHED CRITERIA. Radiographic Imaging XR CHEST 1 VIEW PORTABLE Final Result IMPRESSION: Nonacute portable chest. Procedures: Procedures Moderate Sedation Procedure: No ED Summary/MDM EKG was reviewed and revealed normal sinus rhythm, no acute ST elevations, or other acute changes. Pneumothorax, pneumonia, effusion considered and ruled out via chest x-ray. STEMI considered and ruled out via EKG. Patient has a reproducible chest pain therefore I believe this to be a chest wall contusion or chest wall pain also history of frequent syncope with Pott's disease produces the possibility that she injured it without being aware Clinical Impression: 1. Chest wall pain No follow-ups on file. New Prescriptions No medications on file Discontinued Medications No medications on file An After Visit Summary was printed and given to the patient with above information. . . Meme Prasad MD 11/28/232233 [facility]* Carolyn Gamez - 09/15/2023 7:33 PM EDT Pt verbalizes understanding of discharge instructions/follow up care/ and medications. Pt A&Ox4, Pt denies any further questions or needs. Pt ambulated out of room. [facility]07-14-2024 Emergency department Note* Carolyn Gamez - 09/15/2023 7:33 PM EDT Pt verbalizes understanding of discharge instructions/follow up care/ and medications. Pt A&Ox4, Pt denies any further questions or needs. Pt ambulated out of room. * Sahil Anguiano RN - 09/15/2023 6:15 PM EDT While rounding on the pt, she informs me that there is a tick to her scalp. A tick is noted, and provider informed. [facility]* Sahil Anguiano RN - 09/15/2023 6:15 PM EDT While rounding on the pt, she informs me that there is a tick to her scalp. A tick is noted, and provider informed. [facility]05-21-2024 Emergency department Note* Padmini Hart RN - 07/23/2023 3:28 PM EDT Discussed discharge instructions with patient at this time. All questions and concerns addressed with no additional needs voiced. Pharmacy verified. Patient declines assistance to main entrance for discharge at this time. [facility]05-21-2024 Emergency department Note* Padmini Hart RN - 07/23/2023 3:28 PM EDT Discussed discharge instructions with patient at this time. All questions and concerns addressed with no additional needs voiced. Pharmacy verified. Patient declines assistance to main entrance for discharge at this time. * Hi Mclean RN - 07/23/2023 11:43 AM EDT Arrives with c/o increased abdominal pain pt has an exploratory laparoscopy done 07/18/[address] Sanchez. Pt went home then Saturday started having increased abdominal pain [facility]* Hi Mclean RN - 07/23/2023 11:43 AM EDT Arrives with c/o increased abdominal pain pt has an exploratory laparoscopy done 07/18/[address] Sanchez. Pt went home then Saturday started having increased abdominal pain [facility]05-17-2024 Nurse Note* Bhavya Ballard RN - 07/19/2023 2:35 PM EDT Patient is discharged via wheelchair and this nurse to vehicle driven by boyfriend to return home. Patient has discharge instructions and all personal belongings. Patient is alert, oriented and stable * Bhavya Ballard RN - 07/19/2023 2:25 PM EDT Patient ambulates to the BR with a stand by assist and voids clear, yellow urine tinged with blood * Bhavya Ballard RN - 07/19/2023 2:11 PM EDT IV is saline locked * Jacklyn Martinez RN - 07/19/2023 1:46 PM EDT Discharged from PACU in stable condition at this time. Transported via cart to [place] [id number] Cart placed in lowest position. Call light within reach. Pulse ox monitor on pt with alarms set. Report givento Bhavya FELDMAN. * Jacklyn Martinez RN - 07/19/2023 1:05 PM EDT Patient HR bouncing from 37-76. Patient in no distress and is asymptomatic at this time. Anh Lance notified at this time. He advised that if patient is asymptomatic to continue to monitor and is patient's normal. Anh Rodriguez advised okay to give pain medication with low HR. * Lauren Dexter RN - 07/19/2023 12:50 PM EDT Patient transported to PACU via cart with this RN and GRACIE Zhu. Report given to GASTON Galo. * Lauren Dexter RN - 07/19/2023 12:20 PM EDT OR 1 Temp- 65.3 degrees F OR 1 Hum- 51% [facility] Nurse Surgical operation note* Bhavya Ballard RN - 07/19/2023 2:35 PM EDT Patient is discharged via wheelchair and this nurse to vehicle driven by boyfriend to return home. Patient has discharge instructions and all personal belongings. Patient is alert, oriented and stable [facility]05-17-2024 Nurse Surgical operation note* Bhavya Ballard RN - 07/19/2023 2:25 PM EDT Patient ambulates to the with a stand by assist and voids clear, yellow urine tinged with blood [facility]05-17-2024 Nurse Note* Nursing Notes - Bhavya Ballard RN - 07/19/2023 2:14 PM EDT This nurse reviews discharge instructions with patient and patient's boyfriend. Both state understanding. No further education needed [facility]05-17-2024 Miscellaneous Notes* Nursing Notes - Bhavya Ballard RN - 07/19/2023 2:14 PM EDT This nurse reviews discharge instructions with patient and patient's boyfriend. Both state understanding. No further education needed * Op Note - Jana Sanchez MD - 07/19/2023 1:02 PM EDT OPERATIVE REPORT Facility Name: [facility] Name: Ethan Hernandez Date of : 2005 DATE OF PROCEDURE: 07/19/2023 PROCEDURE: Diagnostic laparoscopy PREOPERATIVE DIAGNOSIS: Chronic pelvic pain POSTOPERATIVE DIAGNOSIS: Same SURGEON: Jana Sanchez MD ANESTHESIA: General EBL: 5cc SPECIMENS: None COMPLICATIONS: None CONDITION: Stable FINDINGS: On examination under anesthesia, the patient had normal external genitalia. Vulva and vagina without lesions. Cervix appeared normal and felt normal. Uterus smooth, mobile. On laparoscopy, uterus appeared normal. Bilateral fallopian tubes and ovaries appeared normal. Endometriosis was notvisualized. One adhesion of bowel to right pelvic side wall noted at approximate midportion of abdomen, very lateral, minimal. INDICATIONS FOR PROCEDURE: Ethan Hernandez is a 18 y.o. who was consented for diagnostic laparoscopy due to chronic pelvic pain. We talked about alternative therapy as in conservative vs medical management and patient desired surgical management. Risks, benefits and what to expect were discussed with patient and informed consent was obtained. Answered all of patient's questions and she verbalized understanding. DESCRIPTION OF PROCEDURE: The patient was taken to the operating room where the patient was then placed under general anesthesia. A time out was performed to confirm correct patient and correct procedure. SCDs were placed on the lower extremities bilaterally & turned on throughout the entire procedure. She was placed inthe dorsal lithotomy position with Yellofin stirrups. The patient was then prepped and draped in a n ormal sterile fashion. A sterile speculum was placed in the vagina and the cervix was dilated to accommodate placement of a uterine manipulator. Gloves were changed and attention was turned toward the abdomen where a transverse subumbilical incision was made and a Lorene clamp was used to dissect the subcutaneous tissue down to the fascia, which was grasped with Deena clamps and elevated for incision with a scalpel. The fascia was secured on either side with suture. The peritoneum was then elevated with Lorene clamps and incised with a scalpel. A haason trocar was placed. An operative scope was used to confirm intraabdominal placement and the abdomen was insufflated with carbon dioxide gas. The patient was placed in steep Trendelenburg. The uterus appeared to be normal as well as anteriorand posterior cul-de-sac. Endometriosis was not visualized. At this point, the patient was taken out of Trendelenburg position, the trocar was removed and the abdomen was desufflated. The fascia for the infraumbilical incision was closed with suture. The skin was closed with a subcuticular stitch of 4-0 Vicryl suture and Dermabond was applied. The uterine manipulator was removed from the anteriorlip the cervix and good hemostasis was appreciated. At this point the patient was taken out of lithotomy position and taken to recovery room in stable condition. The patient tolerated procedure well. Jana Sanchez MD * Brief Op Note - Jana Sanchez MD - 07/19/2023 1:02 PM EDT See immediate op note [facility] Surgical operation note* Bhavya Ballard RN - 07/19/2023 2:11 PM EDT IV is saline locked [facility]05-17-2024 Nurse Surgical operation note* Jacklyn Martinez RN - 07/19/2023 1:46 PM EDT Discharged from PACU in stable condition at this time. Transported via cart to [facility] Cart placed in lowest position. Call light within reach. Pulse ox monitor on pt with alarms set. Report givento Bhavya FELDMAN. [facility]05-17-2024 Hospital Discharge instructions* Discharge Instructions* Bhavya Ballard RN - 07/19/2023 1:08 PM EDT Take tylenol and motrin as needed for pain. Keep katiana pad in place for 2-3 day monitor for drainage. 1 saturated pad in an hour or less call office right away. Keep follow up appointment. Pelvic rest for 2 weeks. No baths, swimming, douching or tampons. Today you received a medication called Bridion (also called Sugammadex). This medication was used to reverse the effects of anesthesia at the end of your procedure in order for your body to start theprocess of awakening from sedation and relaxation and to begin breathing on your own. Like all medication, Bridion (Sugammedax) can interact with other medications that you may take. Inparticular, hormonal contraceptives such as control pills, vaginal ring, implant, or intrauterine device (IUD) may be made less effective by Bridion (Sugammadex) by temporarily reducing the amount of hormone you receive and therefore may not work as well to prevent The amount of your normal hormonal contraceptive that is lost is about the same as missing one oral contraceptive pill. If you currently use a hormonal contraceptive you should use an additional non-hormonal or backup method such as condom or spermicides for the next seven days. Anesthesia Precautions & Expectations: After anesthesia, rest for [address], drink alcoholic beverages or make any important decisions during this time. General anesthesia may cause a sore throat, jaw discomfort or muscle aches. These symptoms can last for one or two days. [facility] Nurse Surgical operation note* Jacklyn Martinez RN - 07/19/2023 1:05 PM EDT Patient HR bouncing from 37-76. Patient in no distress and is asymptomatic at this time. Anh Lance notified at this time. He advised that if patient is asymptomatic to continue to monitor and is patient's normal. Anh Rodriguez advised okay to give pain medication with low HR. [facility]05-17-2024 Surgery Postoperative evaluation and management note* Op Note - Jana Sanchez MD - 07/19/2023 1:02 PM EDT OPERATIVE REPORT Facility Name: [facility] Name: Ethan Hernandez Date of : 2005 DATE OF PROCEDURE: 07/19/2023 PROCEDURE: Diagnostic laparoscopy PREOPERATIVE DIAGNOSIS: Chronic pelvic pain POSTOPERATIVE DIAGNOSIS: Same SURGEON: Jana Sanchez MD ANESTHESIA: General EBL: 5cc SPECIMENS: None COMPLICATIONS: None CONDITION: Stable FINDINGS: On examination under anesthesia, the patient had normal external genitalia. Vulva and vagina without lesions. Cervix appeared normal and felt normal. Uterus smooth, mobile. On laparoscopy, uterus appeared normal. Bilateral fallopian tubes and ovaries appeared normal. Endometriosis was notvisualized. One adhesion of bowel to right pelvic side wall noted at approximate midportion of abdomen, very lateral, minimal. INDICATIONS FOR PROCEDURE: Ethan Hernandez is a 18 y.o. who was consented for diagnostic laparoscopy due to chronic pelvic pain. We talked about alternative therapy as in conservative vs medical management and patient desired surgical management. Risks, benefits and what to expect were discussed with patient and informed consent was obtained. Answered all of patient's questions and she verbalized understanding. DESCRIPTION OF PROCEDURE: The patient was taken to the operating room where the patient was then placed under general anesthesia. A time out was performed to confirm correct patient and correct procedure. SCDs were placed on the lower extremities bilaterally & turned on throughout the entire procedure. She was placed inthe dorsal lithotomy position with Yellofin stirrups. The patient was then prepped and draped in a n ormal sterile fashion. A sterile speculum was placed in the vagina and the cervix was dilated to accommodate placement of a uterine manipulator. Gloves were changed and attention was turned toward the abdomen where a transverse subumbilical incision was made and a Lorene clamp was used to dissect the subcutaneous tissue down to the fascia, which was grasped with Deena clamps and elevated for incision with a scalpel. The fascia was secured on either side with suture. The peritoneum was then elevated with Lorene clamps and incised with a scalpel. A haason trocar was placed. An operative scope was used to confirm intraabdominal placement and the abdomen was insufflated with carbon dioxide gas. The patient was placed in steep Trendelenburg. The uterus appeared to be normal as well as anteriorand posterior cul-de-sac. Endometriosis was not visualized. At this point, the patient was taken out of Trendelenburg position, the trocar was removed and the abdomen was desufflated. The fascia for the infraumbilical incision was closed with suture. The skin was closed with a subcuticular stitch of 4-0 Vicryl suture and Dermabond was applied. The uterine manipulator was removed from the anteriorlip the cervix and good hemostasis was appreciated. At this point the patient was taken out of lithotomy position and taken to recovery room in stable condition. The patient tolerated procedure well. Jana Sanchez MD [facility]05-17-2024 Surgery Postoperative evaluation and management note* Brief Op Note - Jana Sanchez MD - 07/19/2023 1:02 PM EDT See immediate op [facility] Nurse Surgical operation note* Lauren Dexter RN - 07/19/2023 12:50 PM EDT Patient transported to PACU via cart with this RN and GRACIE Zhu. Report given to GASTON Galo. [facility]05-17-2024 Nurse Surgical operation note* Lauren Dexter RN - 07/19/2023 12:20 PM EDT OR 1 Temp- 65.3 degrees F OR 1 Hum- 51% [facility]05-06-2024 History of Present illness Narrative* Cele Diaz RN - 07/08/2023 12:16 PM EDT Images from the original note were not included. Called and spoke with Ethan-she denies any known family history of unexplained sudden . Is unaware of any family history of heart disease. Ethan Hernandez Female, 18 y.o., 2005 (M) DO Cele Hemphill RN Cc: Gladys Kay RN; Lauern Herndon RN Reviewed and may proceed as long as no history of sudden unexplained deaths in the family Previous Messages ----- Message ----- From: Cele Diaz RN Sent: 07/05/2023 8:29 AM EDT To: Lauren Herndon RN; Gladys Kay RN; * Subject: chest pain Please review chest pain questionnaire and EKG from 07/04 and advise. Thanks ACTIVITY TOLERANCE (MET LEVEL) >4mets CHEST PAIN (SEE ADDITIONAL CHEST PAIN QUESTIONNAIRE IF APPLICABLE) Chest Pain Questionnaire TYPE sharp FREQUENCY 1-2 times/week SEVERITY 06/11 RADIATION Middle chest, no radiation BROUGHT ON BY unknown RELIEVED WITH unknown DURATION Has had this pain since age 6; one doctor said it's because of POTS, one said because of fibromyalgia. Or I am a very anxious person and it could just be that. They did a bunch of tests and everything seems fine Echo 2017 HISTORY OF HEART CATH/STENT PLACEMENT no documented in this [facility]02-01-2024 Emergency department Note* Kai Manzanares RN - 04/04/2023 3:00 PM EST Discharge and follow up instructions went over with patient and mother. All questions answered. Patient ambulated by herself with a steady gait. No signs of distress at time of discharge. [facility]02-01-2024 Emergency department Note* Kai Manzanares RN - 04/04/2023 3:00 PM EST Discharge and follow up instructions went over with patient and mother. All questions answered. Patient ambulated by herself with a steady gait. No signs of distress at time of discharge. documented in this [facility]11-17-2023 History of Present illness Narrative* Barney Jacques MA - 01/18/2023 8:42 AM EST Ethan did not show up for her Colonoscopy today 01-18-23. documented in this [id number] History of Present illness Narrative* Patti Song, PT - 11/13/2022 2:[address] [facility] DAILY TREATMENT NOTE Today's Date 11/13/2022 Patient Name: Ethan Hernandez Date of : 2005 Current Visit #: [id number] Authorized Visits: 30 Case Name: Right Knee MPFL-PT History: Pre-Treatment Pain Scale: 0 Symptoms: unchanged Functional Diagnosis: 1. 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 States her right ankle has been swelling recently, thinks it may be from standing on concrete at work. Objective Treatments: Physical Therapy Exercise Log - 11/13/22 1402 OTHER Precautions/Contraindications s/p MPFL Reconstruction R Knee- 08/06/22 Notes Visit 24: 2:02-2:45 Vitals *MPFL Protocol. Eval on 08/29/22. Progress note completed 10/16/22 Therapeutic Exercise (08532) Intervention Upright bike seat 4, lvl 6 resistance, 6min Parameters Step stretches HS, gastroc R 20sec x 3 Intervention Functional Testing, review of goals, HEP review x10 minutes Intervention Jogging in hallway 50% speed 75ft x4 Parameters -- Intervention -- Parameters Shuttle 68# bilat 2x25, SL R 37# 2 x 25 Intervention -- Parameters DL line hops forward/backward and lateral [id number] Intervention 8 inch box jump up/downs focus on soft landing to 45 deg knee flexion 2x10 PT Treatment Times Therex Total Time 43 Direct Treatment Time 43 Total Treatment Time 43 Goals: Physical Therapy Ortho Goals: MOBILITY: Patient will be able to ambulate for 1 hour in community without difficulty in 6 weeks. (MET 09/19/22, 10/16/22, 11/13/22 pt reports she was able to walk 3 miles with no pain) MOBILITY: Patient will be able to ambulate on uneven surfaces without difficulty in 6 weeks. (MET 09/19/22, no reported difficulties ambulating in grass or gravel) MOBILITY: Patient will be able to ascend/descend stairs without difficulty in 6 weeks. (MET 11/13/22, no pain or difficulty ascending/descending stairs reciprocally) CHANGING MAINTAINING POSITON: Patient will be able to change position in bed without pain or difficulty in 4 weeks. (MET 09/19/22, no pain or difficulty) SELF CARE: Patient will be able to complete ADL's including bathing, dressing, and hair care without difficulty in 3 weeks. (MET 09/19/22, no pain or difficulty) IMPAIRMENT: Improve pain from 7/10 to 1/10 during WB and ADL activity in 6 weeks (MET 10/16/22, 1/10pain with WB activities when standing still, 0/10 pain when moving) IMPAIRMENT: Improve MMT of right Knee Flexion from 3/5 to 5/5 in 6 weeks (MET 11/13/22, 5/5) IMPAIRMENT: Improve MMT of right Knee Extension from 3/5 to 5/5 in 6 weeks (MET 11/13/22, 5/5) IMPAIRMENT: Improve PROM of right Knee Flexion from 90 degrees to 135 degrees in 6 weeks. (MET 10/16/22, 145 degrees) IMPAIRMENT: Improve PROM of right Knee Extension from 0 degrees to 2 degrees in 6 weeks.(MET 09/19/22, 0 degrees) OTHER: Patient will be able to properly demonstrate independence with HEP in 2 weeks. (MET 10/16/22,performing current HEP 1x daily) Patient Education: Quality of movement, HEP Adherence, Community Fitness, and Diagnosis and recovery specific education with patient demonstrated understanding and verbalized understanding. Post-Treatment Pain Scale: 0 Assessment: Patient had an expected response to treatment. Skilled Intervention demonstrated by modifications of treatment per exercise log including plane progressions, increased intensity, increased volume, and assessment of patient's response and safety interventions per exercise log. Progress towards goals as expected. Plan for Next Visit: Discharge this visit Patti Song PT STATE LICENSE, [id number] documented in this [id number] History of Present illness Narrative* Sulema Lazar MD - 11/08/2022 11:15 AM EDT I have seen and personally evaluated this patient. I agree with the exam findings, assessment and plan outlined in the resident physician's note by Dr. Manan Hayden. * Manan Hayden MD - 11/08/2022 11:15 AM EDT Chief Complaint Patient presents with Right Knee - Follow-up 3m 2d FU for R knee MPFL reconstruction. Feeling good. No issues. PT - 3x week now 2x - last appointment is last week unless told to continue. Feels like she is at 65% - lacking strength. DATE OF SURGERY 08/06/2022 SUBJECTIVE Ethan is now 3 months S/P RIGHT KNEE MPFLR. Physical therapy in progress: Yes, one more session left. Working on jumping currently Using narcotic pain medication: No Current problems or concerns: No major issues. PHYSICAL EXAM Right knee Exam: The incisions are well-healed. 2+ distal pulses and sensation intact. Effusion / Swelling: mild Range Of Motion: 0-130 Strength: Good with quad ASSESSMENT 3 months S/P RIGHT KNEE MPFLR PLAN -Continue last PT per MPFLR protocol -AVIVA for swelling control -Follow up in 6 weeks [facility] of Present illness Narrative* Patti Song, PT - 11/06/2022 2:[address] [facility] DAILY TREATMENT NOTE Today's Date 11/06/2022 Patient Name: Ethan Hernandez Date of : 2005 Current Visit #: 23 Authorized Visits: 30 Case Name: Right Knee MPFL-PT History: Pre-Treatment Pain Scale: 0 Symptoms: stabilized Functional Diagnosis: 1. 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 Pt reports pain above right knee cap after squat jumps last session. States the pain continued for a day or two. Denies current pain. Pt reports she has follow up with physician on of this week. Objective Treatments: Physical Therapy Exercise Log - 11/06/22 1403 OTHER Precautions/Contraindications s/p MPFL Reconstruction R Knee- 08/06/22 Notes Visit 23: 2:00-2:43 Vitals *MPFL Protocol. Eval on 08/29/22. Progress note completed 10/16/22 Therapeutic Exercise (86211) Intervention Upright bike seat 4, lvl 6 resistance, 6min Parameters Step stretches HS, gastroc R 20sec x 3 Intervention 6 inch Lateral Heel Taps 2x10 R with UE support (NT 11/06) Parameters -- Intervention Jogging in hallway 50% speed 50ft x4 (pt stays more on ball of R foot with uneven gaitsymmetry) (NT 11/06) Parameters Airex Excursions R stance x20 each direction Intervention Steamboats (Flex, Ext, Abd, Add)- x 20 bilaterally L5 each standing on Airex Parameters Shuttle 68# bilat 2x25, SL R 37# 2 x 25, jumping bilat 37# x25 Intervention Wall jumps 2x25 Parameters -- Parameters DL line hops forward/backward and lateral [id number] Intervention 8 inch box jump up/downs focus on soft landing to 45 deg knee flexion 2x10 PT Treatment Times Therex Total Time 43 Direct Treatment Time 43 Total Treatment Time 43 Goals: Physical Therapy Ortho Goals: MOBILITY: Patient will be able to ambulate for 1 hour in community without difficulty in 6 weeks. (MET 09/19/22, 10/16/22 pt reports she was able to walk 3 miles with no pain) MOBILITY: Patient will be able to ambulate on uneven surfaces without difficulty in 6 weeks. (MET 09/19/22, no reported difficulties ambulating in grass or gravel) MOBILITY: Patient will be able to ascend/descend stairs without difficulty in 6 weeks. (NOT MET 10/16/22, pt reports no difficulty with ascending, mild difficulty descending stairs using step-to pattern, pt reports descending stairs continues to get easier) CHANGING MAINTAINING POSITON: Patient will be able to change position in bed without pain or difficulty in 4 weeks. (MET 09/19/22, no pain or difficulty) SELF CARE: Patient will be able to complete ADL's including bathing, dressing, and hair care without difficulty in 3 weeks. (MET 09/19/22, no pain or difficulty) IMPAIRMENT: Improve pain from 7/10 to 1/10 during WB and ADL activity in 6 weeks (MET 10/16/22, 1/10pain with WB activities when standing still, 0/10 pain when moving) IMPAIRMENT: Improve MMT of right Knee Flexion from 3/5 to 5/5 in 6 weeks (NOT MET 10/16/22, 4+/5) IMPAIRMENT: Improve MMT of right Knee Extension from 3/5 to 5/5 in 6 weeks (NOT MET 10/16/22, 4/5) IMPAIRMENT: Improve PROM of right Knee Flexion from 90 degrees to 135 degrees in 6 weeks. (MET 10/16/22, 145 degrees) IMPAIRMENT: Improve PROM of right Knee Extension from 0 degrees to 2 degrees in 6 weeks.(MET 09/19/22, 0 degrees) OTHER: Patient will be able to properly demonstrate independence with HEP in 2 weeks. (MET 10/16/22,performing current HEP 1x daily) Patient Education: Quality of movement, HEP Adherence, and Diagnosis and recovery specific education with patient demonstrated understanding and verbalized understanding. Post-Treatment Pain Scale: 0 Assessment: Patient had an expected response to treatment. Skilled Intervention demonstrated by modifications of treatment per exercise log including plane progressions, increased intensity, and assessment of patient's response and safety interventions per exercise log. Progress towards goals as expected. Plan for Next Visit: Discharge vs treatment note Patti Song PT STATE LICENSE, [id number] documented in this [id number] History of Present illness Narrative* Natali Hope PTA - 10/26/2022 9:[address] [facility] DAILY TREATMENT NOTE Today's Date 10/26/2022 Patient Name: Ethan Hernandez Date of : 2005 Current Visit #: 22 Authorized Visits: 30 Case Name: Right Knee MPFL-PT History: Pre-Treatment Pain Scale: 0 Symptoms: gradually improved Functional Diagnosis: 1. 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 Objective Treatments: Physical Therapy Exercise Log - 10/26/22 0930 OTHER Precautions/Contraindications s/p MPFL Reconstruction R Knee- 08/06/22 Notes Visit 22: 9:30-10:15 Vitals *MPFL Protocol. Eval on 08/29/22. Progress note completed 10/16/22 Therapeutic Exercise (05975) Intervention Upright bike seat 4, lvl 6 resistance, 6min Parameters Step stretches HS, gastroc R 20sec x 3 Intervention 6 inch Lateral Heel Taps 2x10 R with UE support Parameters BOSU Squats- 2 x20 Intervention Jogging in hallway 50% speed 50ft x4 (pt stays more on ball of R foot with uneven gaitsymmetry) Parameters Airex Excursions R stance x20 each direction Intervention Steamboats (Flex, Ext, Abd, Add)- x 20 bilaterally L3 each standing on Airex Parameters Shuttle 68# bilat 2x25, SL R 37# 2 x 25, jumping bilat 37# x20 Intervention Wall jumps 2x20 Parameters Modified jumping jacks with UE support 2x20 Intervention -- Parameters DL line hops forward/backward and lateral [id number] (pt feels like decreased symmetry with coordinating LEs with fwd/bwd hops) Intervention 8 inch box jump downs focus on soft landing to 45 deg knee flexion 2x10 PT Treatment Times Therex Total Time 45 Direct Treatment Time 45 Total Treatment Time 45 Goals: Physical Therapy Ortho Goals: MOBILITY: Patient will be able to ambulate for 1 hour in community without difficulty in 6 weeks. (MET 09/19/22, 10/16/22 pt reports she was able to walk 3 miles with no pain) MOBILITY: Patient will be able to ambulate on uneven surfaces without difficulty in 6 weeks. (MET 09/19/22, no reported difficulties ambulating in grass or gravel) MOBILITY: Patient will be able to ascend/descend stairs without difficulty in 6 weeks. (NOT MET 10/16/22, pt reports no difficulty with ascending, mild difficulty descending stairs using step-to pattern, pt reports descending stairs continues to get easier) CHANGING MAINTAINING POSITON: Patient will be able to change position in bed without pain or difficulty in 4 weeks. (MET 09/19/22, no pain or difficulty) SELF CARE: Patient will be able to complete ADL's including bathing, dressing, and hair care without difficulty in 3 weeks. (MET 09/19/22, no pain or difficulty) IMPAIRMENT: Improve pain from 7/10 to 1/10 during WB and ADL activity in 6 weeks (MET 10/16/22, 1/10pain with WB activities when standing still, 0/10 pain when moving) IMPAIRMENT: Improve MMT of right Knee Flexion from 3/5 to 5/5 in 6 weeks (NOT MET 10/16/22, 4+/5) IMPAIRMENT: Improve MMT of right Knee Extension from 3/5 to 5/5 in 6 weeks (NOT MET 10/16/22, 4/5) IMPAIRMENT: Improve PROM of right Knee Flexion from 90 degrees to 135 degrees in 6 weeks. (MET 10/16/22, 145 degrees) IMPAIRMENT: Improve PROM of right Knee Extension from 0 degrees to 2 degrees in 6 weeks.(MET 09/19/22, 0 degrees) OTHER: Patient will be able to properly demonstrate independence with HEP in 2 weeks. (MET 10/16/22,performing current HEP 1x daily) Patient Education: Quality of movement and Verbal HEP with patient demonstrated understanding and verbalized understanding. Post-Treatment Pain Scale: 0 Assessment: Patient had an expected response to treatment. Skilled Intervention demonstrated by modifications of treatment per exercise log including increased volume and assessment of patient's response and safety interventions per exercise log. Progress towards goals as expected and pt reports overall she is deconditioned . Plan for Next Visit: Treatment Visit with focus on stability and functional mobility. Natali Hope PTA STATE LICENSE, [id number] documented in this [id number] History of Present illness Narrative* Sarah Mckeon PTA - 10/19/2022 8:[address] [facility] DAILY TREATMENT NOTE Today's Date 10/19/2022 Patient Name: Ethan Hernandez Date of : 2005 Current Visit #: 20 Authorized Visits: 30 Case Name: Right Knee MPFL-PT History: Pre-Treatment Pain Scale: 0 Symptoms: stabilized Functional Diagnosis: 1. 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 Objective Treatments: Physical Therapy Exercise Log - 10/19/22 0845 OTHER Precautions/Contraindications s/p MPFL Reconstruction R Knee- 08/06/22 Notes Visit 20: 8:45-9:30 Vitals *MPFL Protocol. Eval on 08/29/22. Progress note completed 10/16/22 Therapeutic Exercise (89373) Intervention Upright bike seat 4, lvl 6 resistance, 6min Parameters Step stretches HS, gastroc R 20sec x 3 Intervention 6 inch Lateral Heel Taps 2x10 R with UE support Parameters BOSU Squats- 2 x20 Intervention Jogging in hallway 50% speed 50ft x4 (pt stays more on ball of R foot with uneven gaitsymmetry) Parameters Airex Excursions R stance x20 each direction Intervention Steamboats (Flex, Ext, Abd, Add)- x 20 bilaterally L3 each standing on Airex Parameters Shuttle 68# bilat 2x25, SL R 37# 2 x 25, jumping bilat 37# 2x20 Intervention Wall jumps 2x20 Parameters Modified jumping jacks with UE support 2x20 Intervention Modified squat to jump with UE support x20 (cues to land more through heels) Parameters DL line hops forward/backward and lateral 2x10 ea (pt feels like decreased symmetry withcoordinating LEs with fwd/bwd hops) Intervention 8 inch box jump downs focus on soft landing to 45 deg knee flexion x10 (cues to [place] through heels) PT Treatment Times Therex Total Time 45 Direct Treatment Time 45 Total Treatment Time 45 Goals: Physical Therapy Ortho Goals: MOBILITY: Patient will be able to ambulate for 1 hour in community without difficulty in 6 weeks. (MET 09/19/22, 10/16/22 pt reports she was able to walk 3 miles with no pain) MOBILITY: Patient will be able to ambulate on uneven surfaces without difficulty in 6 weeks. (MET 09/19/22, no reported difficulties ambulating in grass or gravel) MOBILITY: Patient will be able to ascend/descend stairs without difficulty in 6 weeks. (NOT MET 10/16/22, pt reports no difficulty with ascending, mild difficulty descending stairs using step-to pattern, pt reports descending stairs continues to get easier) CHANGING MAINTAINING POSITON: Patient will be able to change position in bed without pain or difficulty in 4 weeks. (MET 09/19/22, no pain or difficulty) SELF CARE: Patient will be able to complete ADL's including bathing, dressing, and hair care without difficulty in 3 weeks. (MET 09/19/22, no pain or difficulty) IMPAIRMENT: Improve pain from 7/10 to 1/10 during WB and ADL activity in 6 weeks (MET 10/16/22, 1/10pain with WB activities when standing still, 0/10 pain when moving) IMPAIRMENT: Improve MMT of right Knee Flexion from 3/5 to 5/5 in 6 weeks (NOT MET 10/16/22, 4+/5) IMPAIRMENT: Improve MMT of right Knee Extension from 3/5 to 5/5 in 6 weeks (NOT MET 10/16/22, 4/5) IMPAIRMENT: Improve PROM of right Knee Flexion from 90 degrees to 135 degrees in 6 weeks. (MET 10/16/22, 145 degrees) IMPAIRMENT: Improve PROM of right Knee Extension from 0 degrees to 2 degrees in 6 weeks.(MET 09/19/22, 0 degrees) OTHER: Patient will be able to properly demonstrate independence with HEP in 2 weeks. (MET 10/16/22,performing current HEP 1x daily) Patient Education: Quality of movement with patient demonstrated understanding and verbalized understanding. Post-Treatment Pain Scale: 0 Assessment: Patient had an expected response to treatment. Pt tolerated exercise progression well with no increase in pain post treatment. Skilled Intervention demonstrated by modifications of treatment per exercise log including increased cueing, increased intensity, increased volume, and assessment of patient's response and safety interventions per exercise log. Verbal/tactile cues and/or demonstration for each exercise to improve technique and decrease compensatory motions with good carryover to maximize benefit of performing. Progress towards goals as expected. Plan for Next Visit: Treatment Visit with focus on proper technique/body mechanics and strength andstability per protocol Sarah Mckeon PTA STATE LICENSE, [id number] documented in this [id number] History of Present illness Narrative* Patti Song, PT - 10/16/2022 9:[address] [facility] DAILY TREATMENT NOTE Today's Date 10/16/2022 Patient Name: Ethan Hernandez Date of : 2005 Current Visit #: 19 Authorized Visits: 30 Case Name: Right Knee MPFL-PT History: Pre-Treatment Pain Scale: 0 Symptoms: unchanged Functional Diagnosis: 1. 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 Pt reports she experiences 1/10 pain when standing still. Pt reports she would like to return to weight lifting, running, and doing her normal activities without fear or pain. Objective Treatments: Physical Therapy Exercise Log - 10/16/22 0930 OTHER Precautions/Contraindications s/p MPFL Reconstruction R Knee- 08/06/22 Notes Visit 19: 9:30-10:15 Vitals *MPFL Protocol. Eval on 08/29/22. Progress note completed 09/19/22 Therapeutic Exercise (48941) Intervention Upright bike seat 8, lvl 5.5 resistance, 6min Parameters Step stretches HS, gastroc R 20sec x 3 Intervention Functional testing, review of goals, POC education x10 min Parameters BOSU Squats- 2 x20 Intervention Jogging on Trampoline x3min Parameters Excursions on 2in box R stance x20 each direction (NT 10/16 d/t time with functional testing) Intervention Steamboats (Flex, Ext, Abd, Add)- x 20 bilaterally L3 each standing on Airex Parameters Shuttle 68# bilat 2x25, SL R 37# 2 x 25, jumping bilat 37# 2x20 Intervention Wall jumps 2x20 Parameters Modified jumping jacks with UE support x20 Intervention Modified squat to jump with UE support x20 Parameters -- PT Treatment Times Therex Total Time 45 Direct Treatment Time 45 Total Treatment Time 45 Goals: Physical Therapy Ortho Goals: MOBILITY: Patient will be able to ambulate for 1 hour in community without difficulty in 6 weeks. (MET 09/19/22, 10/16/22 pt reports she was able to walk 3 miles with no pain) MOBILITY: Patient will be able to ambulate on uneven surfaces without difficulty in 6 weeks. (MET 09/19/22, no reported difficulties ambulating in grass or gravel) MOBILITY: Patient will be able to ascend/descend stairs without difficulty in 6 weeks. (NOT MET 10/16/22, pt reports no difficulty with ascending, mild difficulty descending stairs using step-to pattern, pt reports descending stairs continues to get easier) CHANGING MAINTAINING POSITON: Patient will be able to change position in bed without pain or difficulty in 4 weeks. (MET 09/19/22, no pain or difficulty) SELF CARE: Patient will be able to complete ADL's including bathing, dressing, and hair care without difficulty in 3 weeks. (MET 09/19/22, no pain or difficulty) IMPAIRMENT: Improve pain from 7/10 to 1/10 during WB and ADL activity in 6 weeks (MET 10/16/22, 1/10pain with WB activities when standing still, 0/10 pain when moving) IMPAIRMENT: Improve MMT of right Knee Flexion from 3/5 to 5/5 in 6 weeks (NOT MET 10/16/22, 4+/5) IMPAIRMENT: Improve MMT of right Knee Extension from 3/5 to 5/5 in 6 weeks (NOT MET 10/16/22, 4/5) IMPAIRMENT: Improve PROM of right Knee Flexion from 90 degrees to 135 degrees in 6 weeks. (MET 10/16/22, 145 degrees) IMPAIRMENT: Improve PROM of right Knee Extension from 0 degrees to 2 degrees in 6 weeks.(MET 09/19/22, 0 degrees) OTHER: Patient will be able to properly demonstrate independence with HEP in 2 weeks. (MET 10/16/22,performing current HEP 1x daily) Patient Education: Quality of movement, HEP Adherence, Diagnosis and recovery specific education, and protocol plan of care with patient demonstrated understanding and verbalized understanding. Post-Treatment Pain Scale: 0 Assessment: Patient had an expected response to treatment. Skilled Intervention demonstrated by modifications of treatment per exercise log including increased load, plane progressions, increased intensity, increased volume, and assessment of patient's response and safety interventions per exercise log. Progress towards goals as expected. Plan for Next Visit: Treatment Visit with focus on progress per protocol, running/jumping Patti Song, PT STATE LICENSE, [id number] documented in this [id number] History of Present illness Narrative* Patti Song PT - 10/12/2022 9:[address] [facility] DAILY TREATMENT NOTE Today's Date 10/12/2022 Patient Name: Ethan Hernandez Date of : 2005 Current Visit #: 18 Authorized Visits: 30 Case Name: Right Knee MPFL-PT History: Pre-Treatment Pain Scale: 0 Symptoms: stabilized Functional Diagnosis: 1. 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 No swelling present during today's visit. Pt reports she thinks the swelling is from her shoes since they hurt her feet. Objective Treatments: Physical Therapy Exercise Log - 10/12/22 0930 OTHER Precautions/Contraindications s/p MPFL Reconstruction R Knee- 08/06/22 Notes Visit 18; 9:30-10:15 Vitals *MPFL Protocol. Eval on 08/29/22. Progress note completed 09/19/22 Therapeutic Exercise ([id number]) Intervention Upright bike seat 8, lvl 5.5 resistance, 6min Parameters Step stretches HS, gastroc R 20sec x 3 Parameters BOSU Lunges- x 20 bilaterally alternating Intervention BOSU Squats- 2 x 15 Parameters Jogging on Trampoline x3min Intervention Excursions on 2in box R stance x20 each direction Parameters TKE w/ lvl 5 resistance 5sec x 30 RLE Intervention BOSU Step ups fwd/lat x25 RLE Parameters Steamboats (Flex, Ext, Abd, Add)- x 20 bilaterally L3 each standing on Airex Intervention Shuttle 62# bilat 2x25, SL R 31# 2 x 25, jumping bilat 25# 2x15 Parameters BOSU Rockerboard (F/B, L/R)- x 20 each bilaterally Parameters -- Intervention -- PT Treatment Times Therex Total Time 45 Direct Treatment Time 45 Total Treatment Time 45 Goals: Physical Therapy Ortho Goals: MOBILITY: Patient will be able to ambulate for 1 hour in community without difficulty in 6 weeks. (MET 09/19/22, pt ambulated >1 hr on 09/18 with no pain) MOBILITY: Patient will be able to ambulate on uneven surfaces without difficulty in 6 weeks. (MET 09/19/22, no reported difficulties ambulating in grass or gravel) MOBILITY: Patient will be able to ascend/descend stairs without difficulty in 6 weeks. (NOT MET 09/19/22, pt reports no difficulty with ascending, moderate difficulty descending stairs using step-to pattern) CHANGING MAINTAINING POSITON: Patient will be able to change position in bed without pain or difficulty in 4 weeks. (MET 09/19/22, no pain or difficulty) SELF CARE: Patient will be able to complete ADL's including bathing, dressing, and hair care without difficulty in 3 weeks. (MET 09/19/22, no pain or difficulty) IMPAIRMENT: Improve pain from 7/10 to 1/10 during WB and ADL activity in 6 weeks (NOT MET 09/19/22, 3/10 pain with WB activities at times depending on the day) IMPAIRMENT: Improve MMT of right Knee Flexion from 3/5 to 5/5 in 6 weeks (NOT MET 09/19/22, 4/5) IMPAIRMENT: Improve MMT of right Knee Extension from 3/5 to 5/5 in 6 weeks (NOT MET 09/19/22, 4/5) IMPAIRMENT: Improve PROM of right Knee Flexion from 90 degrees to 135 degrees in 6 weeks. (MET 09/19/22, 144 degrees) IMPAIRMENT: Improve PROM of right Knee Extension from 0 degrees to 2 degrees in 6 weeks.(MET 09/19/22, 0 degrees) OTHER: Patient will be able to properly demonstrate independence with HEP in 2 weeks. (MET 09/19/22,performing current HEP 3x daily) Patient Education: Quality of movement, HEP Adherence, and Diagnosis and recovery specific education with patient demonstrated understanding and verbalized understanding. Post-Treatment Pain Scale: 0 Assessment: Patient had an expected response to treatment. Skilled Intervention demonstrated by modifications of treatment per exercise log including increased load, plane progressions, increased volume, and assessment of patient's response and safety interventions per exercise log. Progress towards goals as expected. Plan for Next Visit: Treatment Visit with focus on progressing per protocol Patti Song PT STATE LICENSE, [id number] documented in this [id number] History of Present illness Narrative* Patti Sogn, PT - 10/02/2022 9:[address] [facility] DAILY TREATMENT NOTE Today's Date 10/02/2022 Patient Name: Ethan Hernandez Date of : 2005 Current Visit #: 15 Authorized Visits: 30 Case Name: Right Knee MPFL-PT History: Pre-Treatment Pain Scale: 0 Symptoms: stabilized Functional Diagnosis: 1. 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 Pt reports she feels like the right knee needs to pop. Pt reports she has recently started going to the gym for upper body strengthening. Objective Treatments: Physical Therapy Exercise Log - 10/02/22 0930 OTHER Precautions/Contraindications s/p MPFL Reconstruction R Knee- 08/06/22 Notes Visit 15; 9:30-10:15 Vitals *MPFL Protocol. Eval on 08/29/22. Progress note completed 09/19/22 Therapeutic Exercise ([id number]) Intervention Upright bike seat 8, lvl 5 resistance, 6min Parameters Step stretches HS, lunge, gastroc R 20sec x 3 Parameters BOSU Lunges- x 15 bilaterally alternating Intervention BOSU Squats- 2 x 10 Intervention Excursions on 2in box R stance x15 each direction Parameters TKE w/ lvl 5 resistance 5sec x 30 RLE Intervention BOSU Step ups fwd/lat 2x10 RLE Parameters Steamboats (Flex, Ext, Abd, Add)- x 15 bilaterally L3 each Intervention Shuttle 62# bilat 2x25, SL R 31# 2 x 20 Parameters Hurdles (FWD, LAT)- 6 hurdles x 4 bouts each reciprocally forward, RLE leading then LLE leading laterally Parameters BOSU Rockerboard (F/B, L/R)- x 20 each bilaterally Intervention 4-Square Stepping over 6 inch hurdles (CW, CCW)- x 8 reps each direction PT Treatment Times Therex Total Time 45 Direct Treatment Time 45 Total Treatment Time 45 Goals: Physical Therapy Ortho Goals: MOBILITY: Patient will be able to ambulate for 1 hour in community without difficulty in 6 weeks. (MET 09/19/22, pt ambulated >1 hr on 09/18 with no pain) MOBILITY: Patient will be able to ambulate on uneven surfaces without difficulty in 6 weeks. (MET 09/19/22, no reported difficulties ambulating in grass or gravel) MOBILITY: Patient will be able to ascend/descend stairs without difficulty in 6 weeks. (NOT MET 09/19/22, pt reports no difficulty with ascending, moderate difficulty descending stairs using step-to pattern) CHANGING MAINTAINING POSITON: Patient will be able to change position in bed without pain or difficulty in 4 weeks. (MET 09/19/22, no pain or difficulty) SELF CARE: Patient will be able to complete ADL's including bathing, dressing, and hair care without difficulty in 3 weeks. (MET 09/19/22, no pain or difficulty) IMPAIRMENT: Improve pain from 7/10 to 1/10 during WB and ADL activity in 6 weeks (NOT MET 09/19/22, 3/10 pain with WB activities at times depending on the day) IMPAIRMENT: Improve MMT of right Knee Flexion from 3/5 to 5/5 in 6 weeks (NOT MET 09/19/22, 4/5) IMPAIRMENT: Improve MMT of right Knee Extension from 3/5 to 5/5 in 6 weeks (NOT MET 09/19/22, 4/5) IMPAIRMENT: Improve PROM of right Knee Flexion from 90 degrees to 135 degrees in 6 weeks. (MET 09/19/22, 144 degrees) IMPAIRMENT: Improve PROM of right Knee Extension from 0 degrees to 2 degrees in 6 weeks.(MET 09/19/22, 0 degrees) OTHER: Patient will be able to properly demonstrate independence with HEP in 2 weeks. (MET 09/19/22,performing current HEP 3x daily) Patient Education: Quality of movement, HEP Adherence, and Diagnosis and recovery specific education with patient demonstrated understanding and verbalized understanding. Post-Treatment Pain Scale: 0 Assessment: Patient had an expected response to treatment. Skilled Intervention demonstrated by modifications of treatment per exercise log including plane progressions, increased volume, and assessment of patient's response and safety interventions per exercise log. Progress towards goals as expected. Plan for Next Visit: Treatment Visit with focus on continuing to progress strength and stability inright knee Patti Song PT STATE LICENSE, [id number] documented in this [id number] History of Present illness Narrative* Kimo Rojo PT - 09/28/2022 8:[address] [facility] DAILY TREATMENT NOTE Today's Date 09/28/2022 Patient Name: Ethan Hernandez Date of : 2005 Current Visit #: 14 Authorized Visits: 30 Case Name: Right Knee MPFL-PT History: Pre-Treatment Pain Scale: 0 Symptoms: stabilized Functional Diagnosis: 1. 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 Patient states that the surgeon is allowing faster progression within pain guidelines since the patient is recovering extremely well. Objective Treatments: Physical Therapy Exercise Log - 09/28/22 0845 OTHER Precautions/Contraindications s/p MPFL Reconstruction R Knee- 08/06/22 Notes Visit 14; 8:45-9:30 Vitals *MPFL Protocol. Eval on 08/29/22. Progress note completed 09/19/22 Therapeutic Exercise (55663) Intervention Upright bike seat 8, lvl 5 resistance, 6min Parameters Step stretches HS, lunge, gastroc R 20sec x 3 Intervention -- Parameters BOSU Lunges- x 15 bilaterally alternating Intervention BOSU Squats- 2 x 10 Intervention Excursions on 2in box R stance x15 each direction Parameters TKE w/ lvl 5 resistance 5sec x 30 RLE Intervention BOSU Step ups fwd/lat 2x10 RLE Parameters Steamboats (Flex, Ext, Abd, Add)- x 10 bilaterally L3 each Intervention Shuttle 62# bilat 2x25, SL R 31# 2 x 15 Parameters Hurdles (FWD, LAT)- 6 hurdles x 4 bouts each reciprocally forward, RLE leading then LLE leading laterally Intervention -- Parameters BOSU Rockerboard (F/B, L/R)- x 20 each bilaterally Intervention 4-Square Stepping over 6 inch hurdles (CW, CCW)- x 8 reps each direction PT Treatment Times Therex Total Time 45 Direct Treatment Time 45 Total Treatment Time 45 Goals: Physical Therapy Ortho Goals: MOBILITY: Patient will be able to ambulate for 1 hour in community without difficulty in 6 weeks. (MET 09/19/22, pt ambulated >1 hr on 09/18 with no pain) MOBILITY: Patient will be able to ambulate on uneven surfaces without difficulty in 6 weeks. (MET 09/19/22, no reported difficulties ambulating in grass or gravel) MOBILITY: Patient will be able to ascend/descend stairs without difficulty in 6 weeks. (NOT MET 09/19/22, pt reports no difficulty with ascending, moderate difficulty descending stairs using step-to pattern) CHANGING MAINTAINING POSITON: Patient will be able to change position in bed without pain or difficulty in 4 weeks. (MET 09/19/22, no pain or difficulty) SELF CARE: Patient will be able to complete ADL's including bathing, dressing, and hair care without difficulty in 3 weeks. (MET 09/19/22, no pain or difficulty) IMPAIRMENT: Improve pain from 7/10 to 1/10 during WB and ADL activity in 6 weeks (NOT MET 09/19/22, 3/10 pain with WB activities at times depending on the day) IMPAIRMENT: Improve MMT of right Knee Flexion from 3/5 to 5/5 in 6 weeks (NOT MET 09/19/22, 4/5) IMPAIRMENT: Improve MMT of right Knee Extension from 3/5 to 5/5 in 6 weeks (NOT MET 09/19/22, 4/5) IMPAIRMENT: Improve PROM of right Knee Flexion from 90 degrees to 135 degrees in 6 weeks. (MET 09/19/22, 144 degrees) IMPAIRMENT: Improve PROM of right Knee Extension from 0 degrees to 2 degrees in 6 weeks.(MET 09/19/22, 0 degrees) OTHER: Patient will be able to properly demonstrate independence with HEP in 2 weeks. (MET 09/19/22,performing current HEP 3x daily) Patient Education: Quality of movement, HEP Adherence, Diagnosis and recovery specific education, and Pain Management with patient demonstrated understanding and verbalized understanding. Post-Treatment Pain Scale: 0 Assessment: Patient had an expected response to treatment. Skilled Intervention demonstrated by modifications of treatment per exercise log including increased load, increased rate, plane progressions, increased intensity, decreased assistance, increased volume, and assessment of patient's response and safety interventions per exercise log. Progress towards goals as expected. Plan for Next Visit: Treatment Visit with focus on continuing to progress strength and stability inright knee Kimo Rojo PT STATE LICENSE, [id number] documented in this [id number] History of Present illness Narrative* BARNEY Escobedo - 09/27/2022 1:00 PM EDT Chief Complaint Patient presents with Right Knee - Post Op Visit 7w s/p R knee scope, MPFL reconstruction with allograft w/ Dr. Lazar (DOS 08/06/22). Knee is doing well. PT 3x per wk. ROM has improved. Working on strength. DATE OF SURGERY 08/06/2022 SUBJECTIVE Ethan is now 7 week(s) S/P RIGHT KNEE MPFLR. Physical therapy in progress: Yes Using narcotic pain medication: No Current problems or concerns: No major issues. PHYSICAL EXAM Right knee Exam: The incisions are well-healed. 2+ distal pulses and sensation intact. Effusion / Swelling: mild Range Of Motion: 0-130 Strength: Poor with quad ASSESSMENT 7 week(s) S/P RIGHT KNEE MPFLR PLAN -Continue PT per MPFLR protocol -RICE for swelling control -Follow up 6 weeks [facility] History of Present illness Narrative* Kimo Rojo PT - 09/24/2022 8:[address] [facility] DAILY TREATMENT NOTE Today's Date 09/24/2022 Patient Name: Ethan Hernandez Date of : 2005 Current Visit #: 12 Authorized Visits: 30 Case Name: Right Knee MPFL-PT History: Pre-Treatment Pain Scale: 0 Symptoms: gradually improved Functional Diagnosis: 1. 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 Patient state that [place] or difficulty [place] the [place]. Objective Knee Right Knee Range of Motion: Flexion Active: 151 Extension Active: 0 Treatments: Physical Therapy Exercise Log - 09/24/22 0845 OTHER Precautions/Contraindications s/p MPFL Reconstruction R Knee- 08/06/22 Notes Visit 12; 8:45-9:30 Vitals *MPFL Protocol. Eval on 08/29/22. Progress note completed 09/19/22 Therapeutic Exercise (09829) Intervention Upright bike seat 8, lvl 5 resistance, 6min Parameters Step stretches HS, lunge, gastroc R 20sec x 3 Intervention Sidestepping/retro amb w/ red Tband 30 ft x 4 Parameters -- Intervention -- Parameters -- Intervention Lat Heel taps 2in R stance x20 Parameters TKE w/ lvl 5 resistance 5sec x 30 RLE Intervention Step ups fwd/lat 6in step 2x15 R Parameters Supine bridges x25 Intervention Shuttle 50# bilat 2x25, SL R 25# 2x25 Parameters Hurdles (FWD, LAT)- 6 hurdles x 4 bouts each reciprocally forward, RLE leading then LLE leading laterally Intervention Squat, heel raises, HS curl, Hip Ext, Hip Abd, Marches- x 20 bilaterally on airex mat Parameters Rockerboard (F/B, L/R)- x 20 each bilaterally Intervention 4-Square Stepping over 6 inch hurdles (CW, CCW)- x 8 reps each direction PT Treatment Times Therex Total Time 45 Direct Treatment Time 45 Total Treatment Time 45 Goals: Physical Therapy Ortho Goals: MOBILITY: Patient will be able to ambulate for 1 hour in community without difficulty in 6 weeks. (MET 09/19/22, pt ambulated >1 hr on 09/18 with no pain) MOBILITY: Patient will be able to ambulate on uneven surfaces without difficulty in 6 weeks. (MET 09/19/22, no reported difficulties ambulating in grass or gravel) MOBILITY: Patient will be able to ascend/descend stairs without difficulty in 6 weeks. (NOT MET 09/19/22, pt reports no difficulty with ascending, moderate difficulty descending stairs using step-to pattern) CHANGING MAINTAINING POSITON: Patient will be able to change position in bed without pain or difficulty in 4 weeks. (MET 09/19/22, no pain or difficulty) SELF CARE: Patient will be able to complete ADL's including bathing, dressing, and hair care without difficulty in 3 weeks. (MET 09/19/22, no pain or difficulty) IMPAIRMENT: Improve pain from 7/10 to 1/10 during WB and ADL activity in 6 weeks (NOT MET 09/19/22, 3/10 pain with WB activities at times depending on the day) IMPAIRMENT: Improve MMT of right Knee Flexion from 3/5 to 5/5 in 6 weeks (NOT MET 09/19/22, 4/5) IMPAIRMENT: Improve MMT of right Knee Extension from 3/5 to 5/5 in 6 weeks (NOT MET 09/19/22, 4/5) IMPAIRMENT: Improve PROM of right Knee Flexion from 90 degrees to 135 degrees in 6 weeks. (MET 09/19/22, 144 degrees) IMPAIRMENT: Improve PROM of right Knee Extension from 0 degrees to 2 degrees in 6 weeks.(MET 09/19/22, 0 degrees) OTHER: Patient will be able to properly demonstrate independence with HEP in 2 weeks. (MET 09/19/22,performing current HEP 3x daily) Patient Education: Quality of movement, HEP Adherence, Diagnosis and recovery specific education, and Home Safety with patient demonstrated understanding and verbalized understanding. Post-Treatment Pain Scale: 0 Assessment: Patient had an expected response to treatment. Skilled Intervention demonstrated by modifications of treatment per exercise log including increased load, increased rate, plane progressions, increased intensity, decreased rest breaks, increased mobility, increased volume, and assessment of patient's response and safety interventions per exerciselog. Progress towards goals as expected. Plan for Next Visit: Treatment Visit with focus on continuing per protocol Kimo Rojo PT STATE LICENSE, [id number] documented in this [id number] History of Present illness Narrative* Patti Song, PT - 09/19/2022 8:[address] [facility] DAILY TREATMENT NOTE Today's Date 09/19/2022 Patient Name: Ethan Hernandez Date of : 2005 Current Visit #: 10 Authorized Visits: 30 Case Name: Right Knee MPFL-PT History: Pre-Treatment Pain Scale: 0 Symptoms: stabilized Functional Diagnosis: 1. 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 States she was up on her feet a lot yesterday with no pain, minor swelling at end of day. Pt reports her only concern at this time is the fibromyalgia pain at night around incision site. Objective Treatments: Physical Therapy Exercise Log - 09/19/22 0846 OTHER Precautions/Contraindications s/p MPFL Reconstruction R Knee- 08/06/22 Notes Visit 10; 8:45-9:40 Vitals *MPFL Protocol. Eval on 08/29/22. Progress note due on 09/26 or by 10th visit Therapeutic Exercise (58207) Intervention Recumbant bike seat 11, lvl 3 resistance, 5min Parameters Step stretches HS, lunge, gastroc R 20sec x 3 Intervention Sidestepping/retro amb w/ red Tband 30 ft x 4 Parameters SLR (Flex)- x 25 without extensor lag Intervention Toe/Heel raises x 20 Parameters LAQ (90-45 deg) 2x20 Intervention Lat Heel taps 4in R stance 2x10 Parameters TKE w/ lvl 2 resistance 5sec x 25 RLE Intervention Step ups fwd/lat 6in step x25 R Parameters Supine bridges x25 Intervention Shuttle 37# bilat 2x25, SL R 18# 2x25 Parameters R CKC, L hip flexion/ext x25 ea Intervention -- Parameters Squat DL x 20 on airex mat Intervention fuctional testing x5 min PT Treatment Times Therex Total Time 45 Direct Treatment Time 45 Total Treatment Time 45 Goals: Physical Therapy Ortho Goals: MOBILITY: Patient will be able to ambulate for 1 hour in community without difficulty in 6 weeks. (MET 09/19/22, pt ambulated >1 hr on 09/18 with no pain) MOBILITY: Patient will be able to ambulate on uneven surfaces without difficulty in 6 weeks. (MET 09/19/22, no reported difficulties ambulating in grass or gravel) MOBILITY: Patient will be able to ascend/descend stairs without difficulty in 6 weeks. (NOT MET 09/19/22, pt reports no difficulty with ascending, moderate difficulty descending stairs using step-to pattern) CHANGING MAINTAINING POSITON: Patient will be able to change position in bed without pain or difficulty in 4 weeks. (MET 09/19/22, no pain or difficulty) SELF CARE: Patient will be able to complete ADL's including bathing, dressing, and hair care without difficulty in 3 weeks. (MET 09/19/22, no pain or difficulty) IMPAIRMENT: Improve pain from 7/10 to 1/10 during WB and ADL activity in 6 weeks (NOT MET 09/19/22, 3/10 pain with WB activities at times depending on the day) IMPAIRMENT: Improve MMT of right Knee Flexion from 3/5 to 5/5 in 6 weeks (NOT MET 09/19/22, 4/5) IMPAIRMENT: Improve MMT of right Knee Extension from 3/5 to 5/5 in 6 weeks (NOT MET 09/19/22, 4/5) IMPAIRMENT: Improve PROM of right Knee Flexion from 90 degrees to 135 degrees in 6 weeks. (MET 09/19/22, 144 degrees) IMPAIRMENT: Improve PROM of right Knee Extension from 0 degrees to 2 degrees in 6 weeks.(MET 09/19/22, 0 degrees) OTHER: Patient will be able to properly demonstrate independence with HEP in 2 weeks. (MET 09/19/22,performing current HEP 3x daily) Patient Education: Quality of movement, HEP Adherence, and Diagnosis and recovery specific education with patient demonstrated understanding and verbalized understanding. Post-Treatment Pain Scale: 0 Assessment: Patient had an expected response to treatment. Skilled Intervention demonstrated by modifications of treatment per exercise log including plane progressions, increased volume, and assessment of patient's response and safety interventions per exercise log. Progress towards goals as expected. Plan for Next Visit: Treatment Visit with focus on progress per protocol Patti Song PT STATE LICENSE, [id number] documented in this [id number] History of Present illness Narrative* Natali Hope PTA - 09/17/2022 8:[address] [facility] DAILY TREATMENT NOTE Today's Date 09/17/2022 Patient Name: Ethan Hernandez Date of : 2005 Current Visit #: 9 Authorized Visits: 30 Case Name: Right Knee MPFL-PT History: Pre-Treatment Pain Scale: 0 Symptoms: gradually improved Functional Diagnosis: 1. 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 Checked last dr visit notes (08/23/22) and they state -Hinge brace through 4 weeks postop. Objective Treatments: Physical Therapy Exercise Log - 09/17/22 0845 OTHER Precautions/Contraindications s/p MPFL Reconstruction R Knee- 08/06/22 Notes Visit 9; 8:45-9:25 Vitals *MPFL Protocol. Eval on 08/29/22. Progress note due on 09/26 or by 10th visit Therapeutic Exercise (53919) Intervention Recumbant bike seat 11, lvl 2 resistance, 5min Parameters Step stretches HS, lunge, gastroc R 20sec x 3 Intervention Sidestepping/retro amb w/ red Tband 20 ft x 4 Parameters SLR (Flex)- x 25 without extensor lag Intervention Toe/Heel raises x 20 Parameters LAQ (90-45 deg) 2x20 Intervention Lat Heel taps 4in R stance 2x10 Parameters TKE w/ lvl 2 resistance 5sec x 20 RLE Intervention Step ups fwd/lat 6in step x25 R Parameters Supine bridges x20 Intervention Shuttle 37# bilat 2x25, SL R 18# 2x25 Parameters R CKC, L hip flexion/ext x25 ea Intervention SLS R LE 2 min even surface no UE support Parameters Squat DL x 20 on airex mat Intervention -- Parameters -- PT Treatment Times Therex Total Time 40 Direct Treatment Time 40 Total Treatment Time 40 Goals: Physical Therapy Ortho Goals: MOBILITY: Patient will be able to ambulate for 1 hour in community without difficulty in 6 weeks. MOBILITY: Patient will be able to ambulate on uneven surfaces without difficulty in 6 weeks. MOBILITY: Patient will be able to ascend/descend stairs without difficulty in 6 weeks. CHANGING MAINTAINING POSITON: Patient will be able to change position in bed without pain or difficulty in 4 weeks SELF CARE: Patient will be able to complete ADL's including bathing, dressing, and hair care without difficulty in 3 weeks. IMPAIRMENT: Improve pain from 7/10 to 1/10 during WB and ADL activity in 6 weeks IMPAIRMENT: Improve MMT of right Knee Flexion from 3/5 to 5/5 in 6 weeks IMPAIRMENT: Improve MMT of right Knee Extension from 3/5 to 5/5 in 6 weeks IMPAIRMENT: Improve PROM of right Knee Flexion from 90 degrees to 135 degrees in 6 weeks. IMPAIRMENT: Improve PROM of right Knee Extension from 0 degrees to 2 degrees in 6 weeks. OTHER: Patient will be able to properly demonstrate independence with HEP in 2 weeks. Patient Education: Quality of movement and Verbal HEP with patient demonstrated understanding and verbalized understanding. Post-Treatment Pain Scale: 0 Assessment: Patient had an expected response to treatment. Skilled Intervention demonstrated by modifications of treatment per exercise log including increased load and increased intensity and safety interventions per exercise log. Progress towards goals as expected and weakness noted R quad during Lat heel taps as demonstrated by muscle shaking . Plan for Next Visit: Treatment Visit with focus on progress per protocol. Natali Hope PTA STATE LICENSE, [id number] documented in this [id number] History of Present illness Narrative* Alistair Orellana - 09/13/2022 9:30 AM EDT Patient offered a medical grounds maintenance supervisor for sensitive exam. Pt declined. [facility] History of Present illness Narrative* Makayla Guevara RN - 09/13/2022 9:00 AM EDT Ethan Hernandez was offered and declined a Medical Bulk Mail Technician for this exam/procedure/test 09/13/2022. She does report hx bipolar and does feels down and depressed by is managed by PCP and Psychiatrist. * Sahil Brunson III, MD - 09/13/2022 9:00 AM EDT INITIAL PATIENT EVALUATION / HISTORY AND PHYSICAL EXAMINATION FOR SURGICAL ONCOLOGY CLINIC Stage = NA HISTORY OF PRESENT ILLNESS The patient has a history of some fullness and tenderness in the upper-outer quadrant bilaterally and bilateral ultrasound was performed. She had a bilateral breast ultrasound on April 03, 2022. This identified an area of nodularity in the upper-outer quadrant of the left breast at the 1 o'clock position. The images were not of high quality but did delineate in the area of concern measuring 9 x5 x 10 mm by our estimation. The patient's studies were given a reading of BI-RADS 3. 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 We saw fibroadenomatoid changes and dense stromal fibrosis. The patient is here for a 2nd opinion. She does not have any current breast pain or nipple discharge. She has done well from the biopsy. Patient has a history of Yola Danlos syndrome and had kneesurgery recently on the right. REVIEW OF SYSTEMS General/Constitutional: Negative for fever, chills, fatigue, recent weight gain or loss. HEENT: No visual disturbances, diplopia, or amarosis fugax. No hearing loss, tinnitus, sore throat,nosebleeds, and rhinorrhea. No dysphagia or odynophagia. Cardiovascular: Negative for palpitations, chest pain, dyspnea on exertion, orthopnea or paroxysmalnocturnal dyspnea. Respiratory: No history of TB exposure. Negative for chronic or productive cough, hemoptysis, or asthma. Gastrointestinal: Negative for abdominal pain, nausea, vomiting, diarrhea, constipation or changes in bowel habits. Genitourinary: Negative for dysuria or hematuria. No frequency, urgency, or hesitancy. Musculoskeletal: Negative for arthralgias, myalgias, or back pain. Neurological: Negative for dizziness, syncope, focal weakness or headaches. Psychiatric: Negative for depression, anxiety or mood disorders. Lymph/Heme: No history of hematologic magligancies or bleeding disorders. No lymphadenopathy. Skin: Negative for acute skin lesions. PAST MEDICAL HISTORY She has a past medical history of Anemia, Aphthous ulcer of mouth (11/01/2020), Deliberate self-cutting (06/08/2019), Yola-Danlos syndrome, Encounter for routine child health examination without abnormal findings (10/01/2016), Fibromyalgia, Hematochezia (11/01/2020), Hip pain, acute, unspecified laterality (12/02/2017), echocardiogram (11/30/2015), Instability of right patellofemoral joint (09/22/2019), Irregular periods (10/01/2016), Muscle tension headache (03/18/2017), Nausea and vomiting (11/01/2020), Non-cardiac chest pain (11/01/2020), Pharyngitis (11/01/2020), Post-concussion syndrome (06/21/2016), and Viral gastroenteritis (05/20/2019). PAST SURGICAL HISTORY She has a past surgical history that includes tonsillectomy adenoidectomy; appendectomy laparoscopic (12/04/2017); other surgical (07/04/2018); knee surgery (Right, 10/14/2019); and reconstruction knee ligamentous intra-articular/extra-articular (Right, 08/06/2022). MEDICATIONS She has a current medication list which includes the following prescription(s): Vyvanse 50 MG capsule, Aspirin 325 MG tablet, DISABILITY PLACARD, Elastic Bandages & Supports (Knee Brace Adjustable Hinged) Misc, Gabapentin 100 MG capsule, Lisdexamfetamine Dimesylate 60 MG capsule, Minocycline HCl 50 MG tablet, oxyCODONE 5 MG tablet, Promethazine HCl 12.5 MG tablet, QUEtiapine 25 MG tablet, sennosides 8.6 MG tablet, and sennosides 8.6 MG tablet. ALLERGIES Allergies Allergen Reactions Latex Atopic Dermatitis Wound Dressing Adhesive Coconut Oil Rash Prasterone Rash Tape [*Tape] Rash Silk tape IMMUNIZATIONS Immunization History Administered Date(s) Administered COVID-19 monovalent vaccine, mRNA, Pfizer, 0.3 ML 10/12/2020, 11/10/2020 DTaP 2003, 2003, 2003, 10/05/2004, 10/30/2007 DTaP/IPV/Hep B Combined Vaccine 2003, 2003 Dtap, Unspecified Formulation 2003, 10/05/2004, 10/30/2007 HIB, Unspecified Formulation 2003, 2003, 2003, 10/05/2004 HPV Vaccine, Quadrivalent 06/15/2015 HPV Vaccine, Unspecified 01/03/2016 Hepatitis A Vaccine 01/03/2016, 10/16/2016 Hepatitis B Vaccine 2005, 2005, 2003 INACTIVATED POLIOVIRUS (IPV) 2003, 10/30/2007 MMR Vaccine 10/05/2004, 10/30/2007 Meningococcal Vaccine (Oligosaccharide) 06/15/2015 Meningococcal Vaccine (Polysaccharide) 12/17/2019 Tdap Vaccine 01/03/2016 Varicella Vaccine 10/05/2004, 10/30/2007 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 SOCIAL HISTORY She reports that she has never smoked. She has never used smokeless tobacco. She reports that she does not drink alcohol and does not use drugs. PHYSICAL EXAMINATION Vital Signs: BP 121/68 Pulse 88 Temp 97.7 F (36.5 C) (Oral) Ht 1.721 m (5' 7.75) Wt 51.7 kg (114 lb) BMI 17.46 kg/m Smoking Status Never , General: Well developed, well nourished female, who looks their stated age of 17 y.o.. No acute distress. HEENT: Head: Normocephalic and atraumatic. Eyes: Pupils are equal, round, and reactive to light andaccomodation. Extraocular movements are intact. Sclerae are anicteric. Neck: Supple, non-tender. Notracheal deviation. No thyromegally. Heart: Regular rate and rhythm. Normal S1, S2. No murmurs, rubs or gallops. Lung/Chest: Lungs are clear to auscultation bilaterally. No wheezes, rhonchi or rales noted. Breast: The skin of the breast is normal bilaterally. The nipples are normal bilaterally. There is no dominant mass or nodularity in either breast. In the upper-outer quadrant of the left breast at the 1:00 a.m. axis about 3 fingerbreadths from the nipple border is an area of normal breast tissue was slight nodularity. I do not feel a mass in this region. Lymph Nodes: There is no cervical or supraclavicular or axillary lymphadenopathy. Abdomen: Abdomen with normoactive bowel sounds in all four quadrants. Soft, non- tender, non-distended. No organomegaly. Extremities: Normal range of motion in all four extremities, with normal strength equally and symmetrically. No cyanosis or clubbing or peripheral edema. Vascular: 2+ distal pulses in upper and lower extremities. 2+ carotid pulses without carotid bruits. Neurological: Conscious, alert and oriented. Grossly intact. Skin: Skin is warm and dry. No skin lesions. ASSESSMENT AND PLAN The patient has a history of some fullness and tenderness in the upper-outer quadrant bilaterally and bilateral ultrasound was performed. This identified an area of nodularity in the upper-outer quadrant of the left breast at the 1 o'clock position. The images were not of high quality but did delineate in the area of concern measuring 9 x 5 x 10 mm. 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 We saw fibroadenomatoid changes and dense stromal fibrosis. On my examination today I feel no mass in the breast on the left or right. We will get a repeat ultrasound of the area in the upper-outer quadrant of the left breast where the patient had the biopsy and the palpated density. Addendum: The area of concern is unchanged and ultrasound today at the 1:00 a.m. zone 7.5 cm from the nipple shows redemonstration of a hypoechoic, oval shaped mass with circumscribed margins that isstable in size compared to March of 2022. Today the mass measures 1.0 x 0.4 x 1.0 cm in previously it measured 0.9 x 0.5 x 1.0 cm. Is adjacent to the mass. There are no new suspicious findings within this region. I told the patient that I would follow her up in 3 months and she will see us at that time. I have reviewed Ethan Hernandez medical, surgical and other pertinent history in detail, and have updated medication and allergy information in the computerized patient record. REFERRING/PRIMARY PROVIDER(S) -Referring Provider for today's consult: Meme Gimenez APRN-[employer]ANT OPERATOR -Primary Care Provider: Meme Gimenez [facility] History of Present illness Narrative* Natali Hope, COR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 - 09/12/2022 8:[address] [facility] DAILY TREATMENT NOTE Today's Date 09/12/2022 Patient Name: Ethan Hernandez Date of : 2005 Current Visit #: 7 Authorized Visits: 30 Case Name: Right Knee MPFL-PT History: Pre-Treatment Pain Scale: 0 Symptoms: gradually improved Functional Diagnosis: 1. 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 Objective Treatments: Physical Therapy Exercise Log - 09/12/22 0845 OTHER Precautions/Contraindications s/p MPFL Reconstruction R Knee- 08/06/22 Notes Visit 7; 8:45-9:30 Vitals *MPFL Protocol. Eval on 08/29/22. Progress note due on 09/26 or by 10th visit Therapeutic Exercise (23283) Intervention Recumbant bike seat 11, lvl 2 resistance, 5min Parameters Step stretches HS, lunge R 20sec x 3 Intervention Quad Sets (supine, Prone, Standing)- 25 x 5 sec hold each R Parameters Heel Slides (AROM, AAROM, PROM)- 20 x 10 sec hold each (NT 09/10) Intervention Sidestepping/retro amb w/ red Tband 20 ft x 4 (given for HEP) Parameters SLR (Flex, Abd, Add, Ext)- x 25 each without extensor lag Intervention Toe/Heel raises x 20 Intervention Step ups fwd 6in step x25 R Parameters Supine bridges x20 Intervention Shuttle 31# bilat 2x15, SL R 12# 2x15 Parameters R CKC, L hip flexion/ext x25 ea Intervention Squat DL x 20, SL RLE x 10 on even surface Parameters Squat DL x 20 on air ex mat Intervention SLS R LE 2 min even surface no UE support Parameters TKE w/ lvl 2 resistance x 20 RLE Gait Training (42308) Intervention Gait training with focus on R knee active flexion during swing phase, heel stroke and toe off throughout Rx PT Treatment Times Therex Total Time 45 Direct Treatment Time 45 Total Treatment Time 45 Goals: Physical Therapy Ortho Goals: MOBILITY: Patient will be able to ambulate for 1 hour in community without difficulty in 6 weeks. MOBILITY: Patient will be able to ambulate on uneven surfaces without difficulty in 6 weeks. MOBILITY: Patient will be able to ascend/descend stairs without difficulty in 6 weeks. CHANGING MAINTAINING POSITON: Patient will be able to change position in bed without pain or difficulty in 4 weeks SELF CARE: Patient will be able to complete ADL's including bathing, dressing, and hair care without difficulty in 3 weeks. IMPAIRMENT: Improve pain from 7/10 to 1/10 during WB and ADL activity in 6 weeks IMPAIRMENT: Improve MMT of right Knee Flexion from 3/5 to 5/5 in 6 weeks IMPAIRMENT: Improve MMT of right Knee Extension from 3/5 to 5/5 in 6 weeks IMPAIRMENT: Improve PROM of right Knee Flexion from 90 degrees to 135 degrees in 6 weeks. IMPAIRMENT: Improve PROM of right Knee Extension from 0 degrees to 2 degrees in 6 weeks. OTHER: Patient will be able to properly demonstrate independence with HEP in 2 weeks. Patient Education: Quality of movement and Verbal HEP with patient demonstrated understanding and verbalized understanding. Post-Treatment Pain Scale: 0 Assessment: Patient had an expected response to treatment. Skilled Intervention demonstrated by modifications of treatment per exercise log including increased load, increased intensity, increased volume, and assessment of patient's response and safety interventions per exercise log. Progress towards goals as expected and pt continues to have no pain with ex . Plan for Next Visit: Treatment Visit with focus on progress per protocol. Natali Hope PTA STATE LICENSE, [id number] documented in this [id number] History of Present illness Narrative* Susan Almonte PTA - 09/10/2022 8:[address] [facility] DAILY TREATMENT NOTE Today's Date 09/10/2022 Patient Name: Ethan Hernandez Date of : 2005 Current Visit #: 6 Authorized Visits: 30 Case Name: Right Knee MPFL-PT History: Pre-Treatment Pain Scale: 0 Symptoms: gradually improved Functional Diagnosis: 1. 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 States she has not had any pain with any activity and has stopped using the crutch w/ community amb. Objective Treatments: Physical Therapy Exercise Log - 09/10/22 0845 OTHER Precautions/Contraindications s/p MPFL Reconstruction R Knee- 08/06/22 Notes Visit 6; 8:45-9:30 Vitals *MPFL Protocol. Eval on 08/29/22. Progress note due on 09/26 or by 10th visit Therapeutic Exercise (46296) Intervention Quad Sets (supine, Prone, Standing)- 25 x 5 sec hold each R Parameters Heel Slides (AROM, AAROM, PROM)- 20 x 10 sec hold each (NT 09/10) Intervention Sidestepping/retro amb w/ red Tband 20 ft x 4 (given for HEP) Parameters SLR (Flex, Abd, Add, Ext)- x 25 each without extensor lag Intervention Patient education on pain management, swelling control, gait sequence, protocol, and home safety x 5 min Parameters Seated EOM very light hamstring curls x 10 R (NT 10) Intervention Toe/Heel raises x 20 Parameters Recumbant bike seat 11, lvl 2 resistance, 5min Intervention Step ups fwd 6in step x25 R Parameters Supine bridges x20 Intervention Shuttle 25# bilat 2x15 Parameters R CKC, L hip flexion/ext x25 ea Intervention Squat DL x 20, SL RLE x 10 on even surface Parameters Squat DL x 20 on air ex mat Intervention SLS R LE 2 min even surface no UE support Parameters TKE w/ lvl 2 resistance x 20 RLE Gait Training (29277) Intervention Gait training with focus on R knee active flexion during swing phase, heel stroke and toe off throughout Rx PT Treatment Times Therex Total Time 40 Gait Training Total Time 5 Direct Treatment Time 45 Total Treatment Time 45 Goals: Physical Therapy Ortho Goals: MOBILITY: Patient will be able to ambulate for 1 hour in community without difficulty in 6 weeks. MOBILITY: Patient will be able to ambulate on uneven surfaces without difficulty in 6 weeks. MOBILITY: Patient will be able to ascend/descend stairs without difficulty in 6 weeks. CHANGING MAINTAINING POSITON: Patient will be able to change position in bed without pain or difficulty in 4 weeks SELF CARE: Patient will be able to complete ADL's including bathing, dressing, and hair care without difficulty in 3 weeks. IMPAIRMENT: Improve pain from 7/10 to 1/10 during WB and ADL activity in 6 weeks IMPAIRMENT: Improve MMT of right Knee Flexion from 3/5 to 5/5 in 6 weeks IMPAIRMENT: Improve MMT of right Knee Extension from 3/5 to 5/5 in 6 weeks IMPAIRMENT: Improve PROM of right Knee Flexion from 90 degrees to 135 degrees in 6 weeks. IMPAIRMENT: Improve PROM of right Knee Extension from 0 degrees to 2 degrees in 6 weeks. OTHER: Patient will be able to properly demonstrate independence with HEP in 2 weeks. Patient Education: Quality of movement with patient demonstrated understanding and verbalized understanding. Post-Treatment Pain Scale: 0 Assessment: Patient had an expected response to treatment. Skilled Intervention demonstrated by modifications of treatment per exercise log including increased load and increased intensity and safety interventions per exercise log. Progress towards goals as expected. Plan for Next Visit: Treatment Visit with focus on increasing ROM and strength per Protocol. Susan Almonte PTA State License, [id number] documented in this [id number] History of Present illness Narrative* Natali Hope PTA - 09/07/2022 8:[address] [facility] DAILY TREATMENT NOTE Today's Date 09/07/2022 Patient Name: Ethan Hernandez Date of : 2005 Current Visit #: 5 Authorized Visits: 30 Case Name: Right Knee MPFL-PT History: Pre-Treatment Pain Scale: 0 Symptoms: gradually improved Functional Diagnosis: 1. 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 Objective Treatments: Physical Therapy Exercise Log - 09/07/22 0845 OTHER Precautions/Contraindications s/p MPFL Reconstruction R Knee- 08/06/22 Notes Visit 5; 8:45-9:25 Vitals MPFL Protocol Therapeutic Exercise (16036) Intervention Quad Sets (supine, Prone, Standing)- 25 x 5 sec hold each R Parameters Heel Slides (AROM, AAROM, PROM)- 20 x 10 sec hold each Intervention -- Parameters SLR (Flex, Abd, Add, Ext)- x 20 each without extensor lag Intervention Patient education on pain management, swelling control, gait sequence, protocol, and home safety x 10 min Parameters Seated EOM very light hamstring curls x 10 R Intervention Toe/Heel raises x 10 Parameters Recumbant bike seat 11, no resistance, 5min Intervention Step ups fwd 2in step x25 R Parameters Supine bridges x20 Intervention Shuttle 25# bilat 2x10 Parameters R CKC, L hip flexion/ext x20 ea Gait Training (53937) Intervention Gait training with focus on R knee active flexion during swing phase, heel stroke and toe off throughout Rx PT Treatment Times Therex Total Time 40 Direct Treatment Time 40 Total Treatment Time 40 Goals: Physical Therapy Ortho Goals: MOBILITY: Patient will be able to ambulate for 1 hour in community without difficulty in 6 weeks. MOBILITY: Patient will be able to ambulate on uneven surfaces without difficulty in 6 weeks. MOBILITY: Patient will be able to ascend/descend stairs without difficulty in 6 weeks. CHANGING MAINTAINING POSITON: Patient will be able to change position in bed without pain or difficulty in 4 weeks SELF CARE: Patient will be able to complete ADL's including bathing, dressing, and hair care without difficulty in 3 weeks. IMPAIRMENT: Improve pain from 7/10 to 1/10 during WB and ADL activity in 6 weeks IMPAIRMENT: Improve MMT of right Knee Flexion from 3/5 to 5/5 in 6 weeks IMPAIRMENT: Improve MMT of right Knee Extension from 3/5 to 5/5 in 6 weeks IMPAIRMENT: Improve PROM of right Knee Flexion from 90 degrees to 135 degrees in 6 weeks. IMPAIRMENT: Improve PROM of right Knee Extension from 0 degrees to 2 degrees in 6 weeks. OTHER: Patient will be able to properly demonstrate independence with HEP in 2 weeks. Patient Education: Quality of movement and Verbal HEP with patient demonstrated understanding and verbalized understanding. Post-Treatment Pain Scale: 0 Assessment: Patient had an expected response to treatment. Skilled Intervention demonstrated by modifications of treatment per exercise log including increased load, increased intensity, increased volume, and assessment of patient's response and safety interventions per exercise log. Progress towards goals as expected and pt had no increased symptoms with additional ex . Plan for Next Visit: Treatment Visit with focus on progress per protocol. Natali Hope PTA STATE LICENSE, [id number] documented in this [id number] History of Present illness Narrative* Natali Hope PTA - 09/05/2022 8:[address] [facility] DAILY TREATMENT NOTE Today's Date 09/05/2022 Patient Name: Ethan Hernandez Date of : 2005 Current Visit #: 4 Authorized Visits: 30 Case Name: Right Knee MPFL-PT History: Pre-Treatment Pain Scale: 3 Symptoms: gradually improved Functional Diagnosis: 1. 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 Reports increased pain with walking too much or when sitting too long. Objective Treatments: Physical Therapy Exercise Log - 09/05/22 0845 OTHER Precautions/Contraindications s/p MPFL Reconstruction R Knee- 08/06/22 Notes Visit 4; 8:45-9:28 Vitals MPFL Protocol Therapeutic Exercise (22687) Intervention Quad Sets (supine, Prone, Standing)- 25 x 5 sec hold each R Parameters Heel Slides (AROM, AAROM, PROM)- 20 x 10 sec hold each Intervention Glute Sets (long sitting, prone, standing)- 25 x 5 sec hold each Parameters SLR (Flex, Abd, Add, Ext)- x 20 each without extensor lag Intervention Patient education on pain management, swelling control, gait sequence, protocol, and home safety x 10 min Parameters Seated EOM very light hamstring curls x 10 R Intervention Toe/Heel raises x 10 Parameters Recumbant bike seat 11, no resistance, 5min Intervention Step ups 2in step 2x10 R Parameters Supine bridges x20 Intervention Shuttle (next visit) Gait Training (58512) Intervention Gait training with focus on R knee active flexion during swing phase, heel stroke and toe off throughout Rx PT Treatment Times Therex Total Time 43 Direct Treatment Time 43 Total Treatment Time 43 Goals: Physical Therapy Ortho Goals: MOBILITY: Patient will be able to ambulate for 1 hour in community without difficulty in 6 weeks. MOBILITY: Patient will be able to ambulate on uneven surfaces without difficulty in 6 weeks. MOBILITY: Patient will be able to ascend/descend stairs without difficulty in 6 weeks. CHANGING MAINTAINING POSITON: Patient will be able to change position in bed without pain or difficulty in 4 weeks SELF CARE: Patient will be able to complete ADL's including bathing, dressing, and hair care without difficulty in 3 weeks. IMPAIRMENT: Improve pain from 7/10 to 1/10 during WB and ADL activity in 6 weeks IMPAIRMENT: Improve MMT of right Knee Flexion from 3/5 to 5/5 in 6 weeks IMPAIRMENT: Improve MMT of right Knee Extension from 3/5 to 5/5 in 6 weeks IMPAIRMENT: Improve PROM of right Knee Flexion from 90 degrees to 135 degrees in 6 weeks. IMPAIRMENT: Improve PROM of right Knee Extension from 0 degrees to 2 degrees in 6 weeks. OTHER: Patient will be able to properly demonstrate independence with HEP in 2 weeks. Patient Education: Quality of movement and Verbal HEP with patient demonstrated understanding and verbalized understanding. Post-Treatment Pain Scale: 3 Assessment: Patient had an expected response to treatment. Skilled Intervention demonstrated by modifications of treatment per exercise log including increased load, increased intensity, increased volume, and assessment of patient's response and safety interventions per exercise log. Progress towards goals as expected and pt had no increased pain with additional ex . Plan for Next Visit: Treatment Visit with focus on Add Shuttle next visit per protocol. Natali Hope PTA STATE LICENSE, [id number] documented in this [id number] History of Present illness Narrative* Susan Almonte PTA - 09/03/2022 7:[address] [facility] DAILY TREATMENT NOTE Today's Date 09/03/2022 Patient Name: Ethan Hernandez Date of : 2005 Current Visit #: 3 Authorized Visits: 30 Case Name: Right Knee MPFL-PT History: Pre-Treatment Pain Scale: 2 Symptoms: gradually improved Functional Diagnosis: 1. 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 States she was able to tolerate previous tx. Pt. Does state she has felt very sore the past couple days as it has been raining/storming, and she tends to feel sore throughout entire body. Objective Treatments: Physical Therapy Exercise Log - 09/03/22 0716 OTHER Precautions/Contraindications s/p MPFL Reconstruction R Knee- 08/06/22 Notes Visit 3; 7:16-8:00 Vitals MPFL Protocol Therapeutic Exercise (14972) Intervention Quad Sets (supine, Prone, Standin)- 25 x 5 sec hold each R Parameters Heel Slides (AROM, AAROM, PROM)- 20 x 10 sec hold each Intervention Glute Sets (long sitting, prone, standing)- 25 x 5 sec hold each Parameters SLR (Flex, Abd, Add, Ext)- x 20 each without extensor lag Intervention Patient education on pain management, swelling control, gait sequence, protocol, and home safety x 10 min Parameters Seated EOM very light hamstring curls x 10 R Intervention Toe/Heel raises x 10 Gait Training (56813) Intervention Gait training with focus on R knee active flexion during swing phase, heel stroke and toe off x 5 min (NT 09/03) PT Treatment Times Therex Total Time 44 Direct Treatment Time 44 Total Treatment Time 44 Goals: Physical Therapy Ortho Goals: MOBILITY: Patient will be able to ambulate for 1 hour in community without difficulty in 6 weeks. MOBILITY: Patient will be able to ambulate on uneven surfaces without difficulty in 6 weeks. MOBILITY: Patient will be able to ascend/descend stairs without difficulty in 6 weeks. CHANGING MAINTAINING POSITON: Patient will be able to change position in bed without pain or difficulty in 4 weeks SELF CARE: Patient will be able to complete ADL's including bathing, dressing, and hair care without difficulty in 3 weeks. IMPAIRMENT: Improve pain from 7/10 to 1/10 during WB and ADL activity in 6 weeks IMPAIRMENT: Improve MMT of right Knee Flexion from 3/5 to 5/5 in 6 weeks IMPAIRMENT: Improve MMT of right Knee Extension from 3/5 to 5/5 in 6 weeks IMPAIRMENT: Improve PROM of right Knee Flexion from 90 degrees to 135 degrees in 6 weeks. IMPAIRMENT: Improve PROM of right Knee Extension from 0 degrees to 2 degrees in 6 weeks. OTHER: Patient will be able to properly demonstrate independence with HEP in 2 weeks. Patient Education: Quality of movement with patient demonstrated understanding and verbalized understanding. Post-Treatment Pain Scale: 2 Assessment: Patient had an expected response to treatment. Skilled Intervention demonstrated by modifications of treatment per exercise log including increased load and increased intensity and safety interventions per exercise log. Progress towards goals as expected. Plan for Next Visit: Treatment Visit with focus on increasing strength and ROM according to protocol Susan Almonte PTA State License, [id number] documented in this [id number] History of Present illness Narrative* Susan Almonte PTA - 08/31/2022 9:[address] [facility] DAILY TREATMENT NOTE Today's Date 08/31/2022 Patient Name: Ethan Hernandez Date of : 2005 Current Visit #: 2 Authorized Visits: 30 Case Name: Right Knee MPFL-PT History: Pre-Treatment Pain Scale: 2 Symptoms: gradually improved Functional Diagnosis: 1. 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 States she has been using a single axillary crutch for community amb, but often does not use when at home. Hinge brace on at all times. Objective Treatments: Physical Therapy Exercise Log - 08/31/22 0940 OTHER Precautions/Contraindications s/p MPFL Reconstruction R Knee- 07/31/22 Notes Visit 2; 9:40-10:18 Therapeutic Exercise (63378) Intervention Quad Sets (supine, Prone, Standin)- 25 x 5 sec hold each R Parameters Heel Slides (AROM, AAROM, PROM)- 15 x 10 sec hold each Intervention Glute Sets (long sitting, prone, standing)- 25 x 5 sec hold each Parameters SLR (Flex, Abd, Add, Ext)- x 20 each without extensor lag Intervention Patient education on pain management, swelling control, gait sequence, protocol, and home safety x 10 min Parameters Seated EOM very light hamstring curls x 10 R Gait Training (46776) Intervention Gait training with focus on R knee active flexion during swing phase, heel stroke and toe off x 5 min (NT 08/31) PT Treatment Times Therex Total Time 38 Direct Treatment Time 38 Total Treatment Time 38 Goals: Physical Therapy Ortho Goals: MOBILITY: Patient will be able to ambulate for 1 hour in community without difficulty in 6 weeks. MOBILITY: Patient will be able to ambulate on uneven surfaces without difficulty in 6 weeks. MOBILITY: Patient will be able to ascend/descend stairs without difficulty in 6 weeks. CHANGING MAINTAINING POSITON: Patient will be able to change position in bed without pain or difficulty in 4 weeks SELF CARE: Patient will be able to complete ADL's including bathing, dressing, and hair care without difficulty in 3 weeks. IMPAIRMENT: Improve pain from 7/10 to 1/10 during WB and ADL activity in 6 weeks IMPAIRMENT: Improve MMT of right Knee Flexion from 3/5 to 5/5 in 6 weeks IMPAIRMENT: Improve MMT of right Knee Extension from 3/5 to 5/5 in 6 weeks IMPAIRMENT: Improve PROM of right Knee Flexion from 90 degrees to 135 degrees in 6 weeks. IMPAIRMENT: Improve PROM of right Knee Extension from 0 degrees to 2 degrees in 6 weeks. OTHER: Patient will be able to properly demonstrate independence with HEP in 2 weeks. Patient Education: Quality of movement with patient demonstrated understanding and verbalized understanding. Post-Treatment Pain Scale: 3 Assessment: Patient had an expected response to treatment. Skilled Intervention demonstrated by modifications of treatment per exercise log including increased load and increased intensity and safety interventions per exercise log. Progress towards goals as expected. Plan for Next Visit: Treatment Visit with focus on increasing ROM and strength according to protocol. Susan Almonte PTA State License, [id number] documented in this [id number] History of Present illness Narrative* Kimo Rojo, PT - 08/29/2022 12:30 PM EDT Images from the original note were not included. [facility] Evaluation Today's Date 08/29/2022 Patient Name: Ethan Hernandez Date of : 2005 Case Name: Right Knee MPFL-PT Functional Diagnosis: 1. Tear of MCL (medial collateral ligament) of knee, right, initial encounter 2. S/P reconstruction of ligament of knee 3. Instability of right patellofemoral joint 4. Yola-Danlos disease Clinical Information: Subjective All subjective data collected as part of a multidisciplinary team: Yes Referring Diagnosis: S/P reconstruction of ligament of knee [Z98.890 (ICD-10-CM)] (Right) Follow-up with physician: 09/27/2022 Patient accompanied by: unaccompanied History of Present Illness Surgery Date: 08/06/2022 Days Post-Op: 23 Subjective History: Patient arrives to session s/p Right knee MPFL reconstruction on 07/31/22. Patient has been doing well and has been compliant with her HEP since Sx. She is wearing hinged brace andusing one crutch for ambulation currently. States that overall she has been progressing well post-op. Previous Treatment for this condition: Yes Therapy type: outpatient rehab Patient reports status as: improving Previous Imaging: MRI and X-ray Hand dominance: right Overall rating of health: Good Pain Scale Pain location: knee ((R)) Average Pain: 4/10 Pain at highest: 7/10 24 Hour Symptom Behavior Morning Pain: sudden Afternoon Pain: unchanged End of day pain: unchanged Nighttime pain: unchanged Personal Goals: Walking RTW Sleeping Comfortably Functional Mobility Status Functional Limitations: limited mobility, recent decline in level of ADL, standing and sitting patient reported Recent change in functional mobility status: Yes Premorbid Mobility Status: Home: independent Community: independent Bed Transfer: independent Toilet Transfer: independent Shower/Tub: independent Car Transfer: independent Current Mobility Status: Home: independent (Crutches and Knee Brace) Community: independent (Crutches and Knee Brace) Bed Transfer: independent Toilet Transfer: independent Shower/Tub: independent Car Transfer: independent Current Activity Level: sedentary Premorbid Activity Level: active Home medical equipment owned: Yes Gait Devices: Crutch. Social Support: Patient lives with others. Additional Social Support: Family Caodaism, social, or cultural considerations to be made aware of before starting treatment: No Home Environment Current Home Environment: unchanged Setup: single story house Entry: steps with no railing (2) First floor: bedroom, half bath, full bath and laundry Animals in the home: yes (dog, Kitten) Anticipated Home Environment at Discharge: unchanged Do you feel safe at home? Yes Activities of Daily Living: independent with all (Increased time and effort with all secondary to pain) Instrumental Activities of Daily Livingto be assessed Sleep Assessment Average sleep duration (hrs): 6 Preferred sleep position: on side and supine Sleep disturbance: Sleep Disturbance Red Flags: None Comments: Barriers to Care: Chronicity or severity of impairments Fall risk screening Fallen 2 or more times in the last 12 months: No Injured as a result of a fall in the last 12 months: No Caodaism, social, or cultural considerations to be made aware of before starting treatment: No Knee Right Knee Tenderness: iliotibial band, medial joint line, patellar tendon, suprapatellar and infrapatellar Range of Motion: Flexion Active: 84 Passive: 90 Extension Active: 0 Passive: 0 Muscle Strength: Flexion: 3 Extension: 3 Quad Set: fair Left Knee Range of Motion: Flexion Active: 152 Passive: 153 Extension Active: 3 Passive: 3 Muscle Strength Flexion: 5 Extension: 5 Quad set: good Joint Swelling (cm) Supra Patellar: 36 (R), 34 (L) Infra Patellar: 35 (R), 34 (L) Joint Line: 34 (R), 33 (L) CPT Code 27416 Low 31822 Moderate 56155 High History 0 1-2 3+ Comorbidities: anxiety, cardiac history, chronic pain, depression, fibromyalgia, mental health, OA,and EDS Personal factors: age, chronicity or severity of the current condition, fear avoidance, Sedentary lifestyle, sleep dysfunction, stress, and work/school barriers Examination of body systems (elements of body structures & functions, activity limitations, and/or participation restrictions) 1-2 elements 3+ elements 4+ elements See below clinical impression Clinical Presentation Stable Evolving Unstable As evidenced by pt report of overall worsening of symtpoms over time Decision Making Low (FOTO >/= 69) Moderate (FOTO 34 - 68) High (FOTO </= 33) FOTO score= 41 Pt is a 17 y.o. female who presents to PT services s/p Right knee MPFL reconstruction on 07/31/22. Patient has been doing well and has been compliant with her HEP since Sx. She is wearing hinged braceand using one crutch for ambulation currently. States that overall she has been progressing well post-op. Upon assessment, pt has been found with the following impairments: impaired posture, decreased ROM, decreased strength, impaired dynamic balance, antalgic gait, swelling, decreased stability, and pain. 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 The pt would benefit from skilled PT services focused on the above listed impairments and limitations in order to safely progress pt to their desired level of function. Pt to be discharged from OP PT services if/when goals are met, if they fail to make progress with conservative management in PT, if their level of progress plateaus, or if they do not maintain compliance with attendance or HEP. At this time, it is my clinical judgment that services are medically necessary. Treatments: Physical Therapy Exercise Log - 08/29/22 1312 OTHER Precautions/Contraindications s/p MPFL Reconstruction R Knee- 07/31/22 Notes Visit 1; 1519-1477 Therapeutic Exercise (87923) Intervention Quad Sets (supine, Prone, Standin)- 20 x 5 sec hold each Parameters Heel Slides (AROM, AAROM, PROM)- 10 x 10 sec hold each Intervention Glute Sets- 20 x 5 sec hold each Parameters SLR (Flex, Abd, Add)- x 20 each without extensor lag Intervention Patient education on pain management, swelling control, gait sequence, protocol, and home safety x 10 min Gait Training (38640) Intervention Gait training with focus on R knee active flexion during swing phase, heel stroke and toe off x 5 min PT Treatment Times Therex Total Time 25 Gait Training Total Time 5 Direct Treatment Time 30 Total Treatment Time 60 30 min evaluation Treatment Plan: Frequency of Visits: 3 times per week Duration: 6 weeks Interventions: Therapeutic Exercise (06356), Neuromuscular Re-Education (90260), Manual Therapy (42256), Therapeutic/ Functional Activities (89687), Gait Training (79354), Electrical Stimulation - Unattended (52912), and Vasopneumatic (41892) Rehab Potential: good Goals: Physical Therapy Ortho Goals: MOBILITY: Patient will be able to ambulate for 1 hour in community without difficulty in 6 weeks. MOBILITY: Patient will be able to ambulate on uneven surfaces without difficulty in 6 weeks. MOBILITY: Patient will be able to ascend/descend stairs without difficulty in 6 weeks. CHANGING MAINTAINING POSITON: Patient will be able to change position in bed without pain or difficulty in 4 weeks SELF CARE: Patient will be able to complete ADL's including bathing, dressing, and hair care without difficulty in 3 weeks. IMPAIRMENT: Improve pain from 7/10 to 1/10 during WB and ADL activity in 6 weeks IMPAIRMENT: Improve MMT of right Knee Flexion from 3/5 to 5/5 in 6 weeks IMPAIRMENT: Improve MMT of right Knee Extension from 3/5 to 5/5 in 6 weeks IMPAIRMENT: Improve PROM of right Knee Flexion from 90 degrees to 135 degrees in 6 weeks. IMPAIRMENT: Improve PROM of right Knee Extension from 0 degrees to 2 degrees in 6 weeks. OTHER: Patient will be able to properly demonstrate independence with HEP in 2 weeks. Patient Education provided: Patient education on pain management, swelling control, gait sequence, protocol, and home safety Clinical Impression: Right Knee Pain s/p Sx, Decreased Right Knee strength and ROM Kimo Rojo PT STATE LICENSE, [id number] documented in this [id number] History of Present illness Narrative* Kevin Luna, BARNEY - 08/23/2022 11:00 AM EDT Chief Complaint Patient presents with Right Knee - Post Op Visit 2wk 3d s/p R knee scope, MPFL reconstruction with allograft w/ Dr. Lazar (DOS 08/06/22). Patient reports knee is doing good. Starts PT next week but has been doing daily HEP. Denies any complications.No questions or concerns. DATE OF SURGERY 08/06/2022 SUBJECTIVE Ethan is now 2 week(s) S/P RIGHT KNEE MPFLR. Physical therapy in progress: No Using narcotic pain medication: No Current problems or concerns: No major issues. She denies any fevers, chills, night sweats, nausea, vomiting. She denies excessive numbness, tingling, calf pain, chest pain, shortness of breath. She denies erythema, warmth, excessive drainage from the surgical site. PHYSICAL EXAM Right knee Exam: Sutures removed and steri-strips applied. The incisions are benign--clean,dry, and intact with no erythema, warmth, purulent drainage, or other signs of infection. 2+ distal pulses and sensation intact. 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 PROCEDURES: 1. Right knee medial patellofemoral ligament reconstruction using an anterior tibialis allograft. 2. Right knee arthroscopy with chondroplasty of the lateral tibial plateau. 3. Intraoperative use of fluoroscopy for the right knee with physician time for the fluoroscopy less than 1 hour. SURGEON(S): Sulema Lazar MD DRILL HAND: Kevin Luna PA-C. Please note, Mr. Luna's services were required for patient positioning, as well as assistance with retraction and assistance with wound closure. There was no qualified orthopedic resident available to assist for this procedure. ANESTHESIA: General. ESTIMATED BLOOD LOSS: Less than 30 mL. TOTAL TOURNIQUET TIME: 0 minutes. IMPLANTS USED: Two of the Mitek 3.4 mm Healix double loaded anchors, in addition to 1 of the Mitek 8 x 23 mm Lauren interference screws. INDICATIONS: The patient is a 17-year-old, active female who has had ongoing chronic patellofemoral instability for many years despite having undergone a prior medial soft tissue imbrication along with a tibial tubercle osteotomy at an outside facility. Recent MRI indicated fat pad impingement anteriorly, but the main finding was on physical exam, ease of dislocation of the patella over the lateral femoral condyle and since the patient as subluxing or dislocating her patella essentially daily. The risks, benefits, and treatment alternatives were explained to the patient in detail including, but not limited to, bleeding, infection, pneumonia, heart complications related to anesthesia, as well as continued symptoms, worsened symptoms, potential need for more surgery, potential for recurrent tearing, potential for neurovascular injury, potential for wound healing complications, and potential for . The patient understood these risks, and she agreed to go forward with the procedure. She did sign a written consent before she was brought to the operating room. DESCRIPTION OF PROCEDURE: Patient was first identified in the preoperative area. She had her surgical site signed by the operative surgeon. She was then wheeled to the OR suite where she was placed in a supine position on the operative table. She was sedated and intubated by the anesthesia staff and administered IV antibiotics. She had the right lower extremity undergo a preoperative exam under anesthesia, which showed she had full passive range of motion of the right knee with 3+ quadrants of lateral patellar glide at full extension and 30 degrees of flexion which disappeared beyond about 50 degrees of flexion. The right lower extremity was then prepped and draped in usual sterile fashion. The patient underwent a preoperative time-out for patient and site identification once prepped and draped. When that was completed, we then made a standard anterolateral portal with an 11 blade and inserted the arthroscope to perform a diagnostic arthroscopy. We made a standard anteromedial portal under direct visualization with the spinal needle and inserted a probe through that portal. It was evident that the articular cartilage of the patellofemoral joint was overall found to be well maintained. 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 In the lateral gutter, there were a few small flecks of damaged cartilage floating there. We vacuumed out those in their entirety. In the medial compartment, the articular cartilage of the medial femoral condyle and medial plateau were found to be normal as was the medial meniscus including the posterior horn root. In the anterior notch, the ACL and PCL were found to be completely normal and stable upon probing. In the lateral compartment, the articular cartilage of the lateral femoral condyle was overall found to be well maintained. 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 We debrided that with a chondroplasty with the shaver back to stable and healthy-appearing tissue. The lateral meniscus showed a minimal area of degenerative change present at the mid portion we debrided that as well. The root of the meniscus both anteriorly and posteriorly were found to be completely intact and stable. There were no loose bodies found in the posterior chambers medially or laterally. We then placed the scope back in the patellofemoral joint. We rinsed the joint approximately with 500 mL of saline to remove any loose fragments that were generated during the procedure. We then removed all of our arthroscopic equipment and turned our attention to the MPFL reconstruction. We placed the knee in approximately 50-55 degrees of flexion. We made a longitudinal incision encompassing the proximal 2/3 of the medial border of the patella. Careful dissection was made down through soft tissue to expose layer 1, which was tagged for later repair. We then made a longitudinal incision in layer 2 and were able to create a soft tissue tunnel in between layer 2 and layer 3 from that anteromedial incision back to our planned posteromedial incision around the adductor tubercle. We then were able to peel layer 3 off the medial border the patella and at the equator of the patella. We were then able to drill and insert the first of the 3.4 mm Healix anchors. We then, by that point, had created a bleeding bone bed of that same area. We then drilled and placed the second 3.4 mm Healix anchor approximately 8 mm proximal to the first one. They held very well. We then were able to make a longitudinal incision over the adductor tubercle. Careful dissection was made down through the soft tissue to expose the area of the saddle region. We were then able to place a spinal needle at our suspected area of the isometric point on the femur and use fluoroscopic x-rays in the AP and perfect lateral views to confirm that we were at what is called Schottle's on the lateral x-ray. We were then able to use that reference point to place our guide pin, it being a Beath pin and then removed the spinal needle. We drilled the guide pin in a slightly distal to proximal and slightly [id number] direction under fluoroscopic guidance, confirming we were in the appropriate spot. That was confirmed. Once the guide pin was drilled across the femur, we then were able to over drill the guide pin to a depth of approximately 30 mm to create a femoral socket. On the back table, by that point, we had been preparing our anterior tibialis allograft by thawing it in antibiotic solution and preparing it on one end with nonabsorbable suture and marking that end of the graft at a depth of 30 mm from the end. We then used the Beath pin to pull the graft into the femoral socket and then removed the Beath pin. We then held the graft in place after it was seated and inserted the 8 x 23 mm Lauren interference screw into the femoral socket. That held very solid fixation. We then were able to pass the tail of the graft up through our previously made soft tissue tunnel between layers 2 and layers 3 from that posteromedial incision up to the anteromedial incision. We then passed the graft under a small additional flap we had created in the anterior soft tissue over the patella and held the graft in place as we removed any creep and/or any slack from the graft. We placed the knee at approximately 50 degrees of flexion as we tensioned the graft and then were able to pass the sutures from the previously placed patellar suture anchors through that graft securing the graft up against the medial border of the patellar at our bleeding bone bed with mattress type stitches. Once that was in place, we took the knee through range of motion confirming the range of motion was restored. There was no capturing of the patella and no over tightening of the graft. We did confirm that at 30 degrees and full extension all the way up to 45+ degrees of flexion, the patella was very, very stable, and we had a solid check rein with a resisting lateral translation of the patella. Once that was all confirmed, we placed the knee back to about 50 degrees of flexion. We trimmed the excess sutures. We thoroughly irrigated the wound. We closed the layers with 0 Vicryl suture in the anteromedial incision, including layer 2 and, layer 1 sequentially, and then closed the opening in the fascia medially over the medial femoral socket. Once that was completed, we then closed the skin in a subcutaneous manner with 2-0 Vicryl suture. The skin was closed in a subcuticular manner with 4-0 Monocryl suture, and the arthroscopic portals were closed with 3-0 nylon suture. The wounds were then dressed with Steri-Strips, Adaptic, sterile 4 x 4's, sterile ABDs, sterile Sof- Rol, and an ice machine was applied to the anterior aspect of the knee, covered by an Benoit wrap, and a hinged knee brace was applied locked in full extension. The patient was awakened from anesthesia and extubated. She was transferred to the postanesthesia care unit in stable condition. There were no complications of the procedure. All needle and sponge counts were correct at the end of the procedure, and I was present and scrubbed for the entirety of the procedure. The patient will be discharged home today with oral pain medication. She will be visited by Physical Therapy in the recovery room for crutch ambulation assistance training prior to discharge, and she will follow up with me in my office in 1-2 weeks. She will be weightbearing as tolerated on the right lower extremity with the hinged knee brace locked in extension during that time. Dictated By: MD Sulema Arita MD ATTENDING TLM/MedQ JOB: [id number] DOC: [id number] * Brief Op Note - Sulema Lazar MD - 08/06/2022 9:56 AM EDT Ethan Hernandez ([id number]) PRE OPERATIVE DIAGNOSIS 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] POST OPERATIVE DIAGNOSIS Post-Op Diagnosis Codes: * 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] PROCEDURE PERFORMED Procedure(s) (LRB): RIGHT KNEE---ARTHROSCOPY, MPFL RECONSTRUCTION WITH ALLOGRAFT (Right) SURGEON Surgeon(s) and Role: * Sulema Lazar MD - Primary ANESTHESIOLOGIST Anesthesiologist: Juan Tinoco MD SUPERVISOR ESTERS [employer] EMULSIFIERS: Anushka Davis APRN-SUPERVISOR EST[employer]ULSIFIERS SURGICAL STAFF Agile Test Lead: Nu Virgen RN; Viki Gillespie RN Physician New Car Inspector: Kevin Luna, BARNEY Scrub Person: Aaliyah Fish X-Ray Technologist: Frandy Gregory COMPLICATIONS None ESTIMATED BLOOD LOSS < 30 ml SPECIMENS No specimen sent * No specimens in log * Sulema Lazar MD August 06, 2022 9:56 AM [facility]* Op Note - Sulema Lazar MD - 08/06/2022 12:00 PM EDT Operative Report DATE PERFORMED: 08/06/2022 PREOPERATIVE DIAGNOSES: Right knee chronic lateral patellofemoral instability POSTOPERATIVE DIAGNOSES: 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 PROCEDURES: 1. Right knee medial patellofemoral ligament reconstruction using an anterior tibialis allograft. 2. Right knee arthroscopy with chondroplasty of the lateral tibial plateau. 3. Intraoperative use of fluoroscopy for the right knee with physician time for the fluoroscopy less than 1 hour. SURGEON(S): Sulema Lazar MD DRILL HAND: Kevin Luna PA-C. Please note, Mr. Luna's services were required for patient positioning, as well as assistance with retraction and assistance with wound closure. There was no qualified orthopedic resident available to assist for this procedure. ANESTHESIA: General. ESTIMATED BLOOD LOSS: Less than 30 mL. TOTAL TOURNIQUET TIME: 0 minutes. IMPLANTS USED: Two of the Mitek 3.4 mm Healix double loaded anchors, in addition to 1 of the Mitek 8 x 23 mm Lauren interference screws. INDICATIONS: The patient is a 17-year-old, active female who has had ongoing chronic patellofemoral instability for many years despite having undergone a prior medial soft tissue imbrication along with a tibial tubercle osteotomy at an outside facility. Recent MRI indicated fat pad impingement anteriorly, but the main finding was on physical exam, ease of dislocation of the patella over the lateral femoral condyle and since the patient as subluxing or dislocating her patella essentially daily. The risks, benefits, and treatment alternatives were explained to the patient in detail including, but not limited to, bleeding, infection, pneumonia, heart complications related to anesthesia, as well as continued symptoms, worsened symptoms, potential need for more surgery, potential for recurrent tearing, potential for neurovascular injury, potential for wound healing complications, and potential for . The patient understood these risks, and she agreed to go forward with the procedure. She did sign a written consent before she was brought to the operating room. DESCRIPTION OF PROCEDURE: Patient was first identified in the preoperative area. She had her surgical site signed by the operative surgeon. She was then wheeled to the OR suite where she was placed in a supine position on the operative table. She was sedated and intubated by the anesthesia staff and administered IV antibiotics. She had the right lower extremity undergo a preoperative exam under anesthesia, which showed she had full passive range of motion of the right knee with 3+ quadrants of lateral patellar glide at full extension and 30 degrees of flexion which disappeared beyond about 50 degrees of flexion. The right lower extremity was then prepped and draped in usual sterile fashion. The patient underwent a preoperative time-out for patient and site identification once prepped and draped. When that was completed, we then made a standard anterolateral portal with an 11 blade and inserted the arthroscope to perform a diagnostic arthroscopy. We made a standard anteromedial portal under direct visualization with the spinal needle and inserted a probe through that portal. It was evident that the articular cartilage of the patellofemoral joint was overall found to be well maintained. 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 In the lateral gutter, there were a few small flecks of damaged cartilage floating there. We vacuumed out those in their entirety. In the medial compartment, the articular cartilage of the medial femoral condyle and medial plateau were found to be normal as was the medial meniscus including the posterior horn root. In the anterior notch, the ACL and PCL were found to be completely normal and stable upon probing. In the lateral compartment, the articular cartilage of the lateral femoral condyle was overall found to be well maintained. 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 We debrided that with a chondroplasty with the shaver back to stable and healthy-appearing tissue. The lateral meniscus showed a minimal area of degenerative change present at the mid portion we debrided that as well. The root of the meniscus both anteriorly and posteriorly were found to be completely intact and stable. There were no loose bodies found in the posterior chambers medially or laterally. We then placed the scope back in the patellofemoral joint. We rinsed the joint approximately with 500 mL of saline to remove any loose fragments that were generated during the procedure. We then removed all of our arthroscopic equipment and turned our attention to the MPFL reconstruction. We placed the knee in approximately 50-55 degrees of flexion. We made a longitudinal incision encompassing the proximal 2/3 of the medial border of the patella. Careful dissection was made down through soft tissue to expose layer 1, which was tagged for later repair. We then made a longitudinal incision in layer 2 and were able to create a soft tissue tunnel in between layer 2 and layer 3 from that anteromedial incision back to our planned posteromedial incision around the adductor tubercle. We then were able to peel layer 3 off the medial border the patella and at the equator of the patella. We were then able to drill and insert the first of the 3.4 mm Healix anchors. We then, by that point, had created a bleeding bone bed of that same area. We then drilled and placed the second 3.4 mm Healix anchor approximately 8 mm proximal to the first one. They held very well. We then were able to make a longitudinal incision over the adductor tubercle. Careful dissection was made down through the soft tissue to expose the area of the saddle region. We were then able to place a spinal needle at our suspected area of the isometric point on the femur and use fluoroscopic x-rays in the AP and perfect lateral views to confirm that we were at what is called Schottle's on the lateral x-ray. We were then able to use that reference point to place our guide pin, it being a Beath pin and then removed the spinal needle. We drilled the guide pin in a slightly distal to proximal and slightly [id number] direction under fluoroscopic guidance, confirming we were in the appropriate spot. That was confirmed. Once the guide pin was drilled across the femur, we then were able to over drill the guide pin to a depth of approximately 30 mm to create a femoral socket. On the back table, by that point, we had been preparing our anterior tibialis allograft by thawing it in antibiotic solution and preparing it on one end with nonabsorbable suture and marking that end of the graft at a depth of 30 mm from the end. We then used the Beath pin to pull the graft into the femoral socket and then removed the Beath pin. We then held the graft in place after it was seated and inserted the 8 x 23 mm Lauren interference screw into the femoral socket. That held very solid fixation. We then were able to pass the tail of the graft up through our previously made soft tissue tunnel between layers 2 and layers 3 from that posteromedial incision up to the anteromedial incision. We then passed the graft under a small additional flap we had created in the anterior soft tissue over the patella and held the graft in place as we removed any creep and/or any slack from the graft. We placed the knee at approximately 50 degrees of flexion as we tensioned the graft and then were able to pass the sutures from the previously placed patellar suture anchors through that graft securing the graft up against the medial border of the patellar at our bleeding bone bed with mattress type stitches. Once that was in place, we took the knee through range of motion confirming the range of motion was restored. There was no capturing of the patella and no over tightening of the graft. We did confirm that at 30 degrees and full extension all the way up to 45+ degrees of flexion, the patella was very, very stable, and we had a solid check rein with a resisting lateral translation of the patella. Once that was all confirmed, we placed the knee back to about 50 degrees of flexion. We trimmed the excess sutures. We thoroughly irrigated the wound. We closed the layers with 0 Vicryl suture in the anteromedial incision, including layer 2 and, layer 1 sequentially, and then closed the opening in the fascia medially over the medial femoral socket. Once that was completed, we then closed the skin in a subcutaneous manner with 2-0 Vicryl suture. The skin was closed in a subcuticular manner with 4-0 Monocryl suture, and the arthroscopic portals were closed with 3-0 nylon suture. The wounds were then dressed with Steri-Strips, Adaptic, sterile 4 x 4's, sterile ABDs, sterile Sof- Rol, and an ice machine was applied to the anterior aspect of the knee, covered by an Benoit wrap, and a hinged knee brace was applied locked in full extension. The patient was awakened from anesthesia and extubated. She was transferred to the postanesthesia care unit in stable condition. There were no complications of the procedure. All needle and sponge counts were correct at the end of the procedure, and I was present and scrubbed for the entirety of the procedure. The patient will be discharged home today with oral pain medication. She will be visited by Physical Therapy in the recovery room for crutch ambulation assistance training prior to discharge, and she will follow up with me in my office in 1-2 weeks. She will be weightbearing as tolerated on the right lower extremity with the hinged knee brace locked in extension during that time. Dictated By: MD Sulema Arita MD ATTENDING TLM/MedQ JOB: [id number] DOC: [id number] [facility]06-05-2023 Nurse Surgical operation note* Chloé Vuong RN - 08/06/2022 11:54 AM EDT 1140 mom at bedside, DC instruction, knee scope exercise, PT Rx and disability play card Px were given, verbalized understanding. [facility]* Chloé Vuong RN - 08/06/2022 11:54 AM EDT 1140 mom at bedside, DC instruction, knee scope exercise, PT Rx and disability play card Px were given, verbalized understanding. * Viki Gillespie RN - 08/06/2022 10:18 AM EDT Pt transferred to PACU via cart. Accompanied by RN and anesthesia provider. Dressing D/I. ISBAR handoff given to GASTON Luevano. [facility] Surgical operation note* Viki Gillespie RN - 08/06/2022 10:18 AM EDT Pt transferred to PACU via cart. Accompanied by RN and anesthesia provider. Dressing D/I. ISBAR handoff given to GASTON Luevano. 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] POST OPERATIVE DIAGNOSIS Post-Op Diagnosis Codes: * 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] PROCEDURE PERFORMED Procedure(s) (LRB): RIGHT KNEE---ARTHROSCOPY, MPFL RECONSTRUCTION WITH ALLOGRAFT (Right) SURGEON Surgeon(s) and Role: * Sulema Lazar MD - Primary ANESTHESIOLOGIST Anesthesiologist: Juan Tinoco MD SUPERVISOR ESTERS AND EMULSIFIERS: Anushka Davis APRN-SUPERVISOR ESTERS AND EMULSIFIERS SURGICAL STAFF Agile Test Lead: Nu Virgen RN; Viki Gillespie RN Physician New Car Inspector: BARNEY Escobedo Scrub Person: Aaliyah Fish X-Ray Technologist: Frandy Gregory COMPLICATIONS None ESTIMATED BLOOD LOSS < 30 ml SPECIMENS No specimen sent * No specimens in log * Sulema Lazar MD August 06, 2022 9:56 AM [facility]06-05-2023 Hospital Discharge instructions* Discharge Instructions* BARNEY Escobedo - 08/06/2022 8:41 AM EDT KNEE MEDIAL PATELLOFEMORAL LIGAMENT SURGERY POSTOPERATIVE INSTRUCTIONS POSTOPERATIVE APPOINTMENT The first postoperative appointment is typically 8-15 days following surgery. Call the office at [phone] if you are unsure of the date and time of your first postoperative appointment. Please note - as a standard part of your postoperative care you will be seeing a mix of the Physician or the Physician New Car Inspector (PA) for your follow up visits. The Physician New Car Inspector is a healthcare professional who serves as an integral part of the surgical team, and has hands-on involvement in your surgical procedure. WEIGHT BEARING STATUS WEIGHT BEARING TOLERATED WITH CAUTION Use crutch assistance as needed while you adjust to post-surgical pain, swelling, and muscle weakness. BRACE A hinge knee brace will be applied in the operating room. The brace will typically be used for approximately 4 weeks following surgery. It is mainly to be used for protection when you are up and about getting around with crutches. It is okay to remove the brace for home exercises, PT, and when resting at home. DRESSINGS / WOUND CARE Leave dressings on for 3 days following surgery. You may then remove the dressings and apply bandaids over the incisions. Do not use bandaids that form a complete seal on the skin all the way around the incisions to allow for some breathability. Some bleeding after surgery is very normal - do not be alarmed if some soaks through the dressings. Keep the incisions clean and dry - do not apply any creams or ointments. Do not remove your sutures. They will be removed in clinic at the appropriate time. SHOWERING / BATHING You may shower 3 days following surgery. Use something to cover the surgical area for a few days, such as saran wrap, to prevent soaking theincisions. No complete submersion of the surgical area in a bath tub, hot tub, pool, etc. until at least 2 weeks out from surgery. PAIN MANAGEMENT You will receive a prescription for pain medication the day of surgery--take as directed. Pain medications generally are not refilled after the initial prescription. Common side effects are nausea, drowsiness, and constipation. Consider taking the medication with food. Try an nlld-[id number]-[id number] laxative for constipation if necessary. Do not operate a motor vehicle or heavy machinery while on narcotic pain medication. Do not consume alcohol while on narcotic pain medication. NERVE BLOCK: As part of your postoperative pain management you may have received a nerve block. It can be normal to experience some numbness or tingling in the affected area for several days. Use caution with weight bearing as your muscles may not be fully functional increasing the risk of a fall. PHYSICAL THERAPY & HOME EXERCISES If you were given home exercises to do, begin these the day after surgery. You will receive a prescription for physical therapy. Consider where you will want to make arrangements for physical therapy. You can plan to start this approximately 1 week following the surgery. IF DOING PT OUTSIDE OF [facility], YOU MUST BRING YOUR PHYSICAL THERAPY PRESCRIPTION TO YOUR APPOINTMENT OR THE THERAPIST WILL NOT BE ABLE TO TREAT YOU. Most procedures have a specific PT protocol with guidelines for progression. The protocol for your PT can be accessed on the [facility] Sports Medicine website (Google search the [facility] rehab protocols ). Alternatively, we can provide a copy of the appropriate protocol at your postoperative appointment to give to your therapist. Stiffness and discomfort are common after surgery. Try to work through this to continue your exercises as they are important for recovery and may help your symptoms. OTHER IMPORTANT POINTS Use your crutches as directed paying close attention to your prescribed weight bearing status. Try to keep your leg elevated and ice consistently--ideally 20 minutes on, 40 minutes off as often as you can throughout the day. This will help some with pain and swelling. Avoid long periods of sitting, bed rest, or travel for the first two weeks after surgery as this can contribute to developing blood clots. Do not drive until cleared by your physician. The effects of anesthesia may linger after your surgery and can cause drowsiness, nausea, and vomiting. Do not make important decisions within the next 24 hours. EMERGENCY CARE Contact Dr. Lazar's office ([phone]) if you experience any of the following: Calf pain, chest pain, or shortness of breath that does not go away. Fever over 101 degrees (low-grade fever after surgery is not uncommon) Spreading redness, pus-like drainage, or excessive bloody drainage from incisions Painful swelling or numbness Unrelenting pain Excessive nausea or vomiting For after-hours emergencies--call the main office number at [phone] to contact the on-call orthopedic physician. IF ANY OF THE ABOVE ISSUES CONTINUE TO ESCALATE OUT OF CONTROL GO TO THE NEAREST EMERGENCY ROOM SOON POSSIBLE. [facility] History and physical note* Sulema Lazar MD - 08/06/2022 6:50 AM EDT Ethan is seen and evaluated this morning. She denies any recent health changes. She has been NPO since midnight. PE- Heart: Regular rate and rhythm. Lungs: Clear in all garsia. Assessment: Right knee chronic patellofemoral instability Plan: 1) NPO 2) Surgical site signed. 3) To OR for right knee arthroscopy with MPFL reconstruction. [facility] Work Phone: [phone] History and physical note* Sulema Lazar MD - 08/06/2022 6:50 AM EDT Ethan is seen and evaluated this morning. She denies any recent health changes. She has been NPO since midnight. PE- Heart: Regular rate and rhythm. Lungs: Clear in all garsia. Assessment: Right knee chronic patellofemoral instability Plan: 1) NPO 2) Surgical site signed. 3) To OR for right knee arthroscopy with MPFL reconstruction. documented [facility] History of Present illness Narrative* Candace Trammell MD - 08/02/2022 8:54 AM EDT Cystourethroscopy with Stent Removal ATTENDING: Candace Trammell MD PREOPERATIVE DIAGNOSIS(ES): Nephrolithiasis s/p URS POSTOPERATIVE DIAGNOSIS(ES): Same PROCEDURE PERFORMED: Flexible Cystourethroscopy and stent pull ANESTHESIA: 2% plain lidocaine jelly INDICATIONS: S/p URS PROCEDURE DETAILS: The patient was properly identified. Consent was obtained. The patient was placed in supine position and prepped and draped in standard fashion with lidocaine jelly per urethra for anesthesia. The flexible cystoscope was lubricated and placed through the urethra and into the bladder. The stent was v isualized and grasped with a flexible grasper and removed completely. The patient tolerated the procedure well and discharged in good condition. COMPLICATIONS: None I was present and performed the entire procedure. Dietary recommendations to prevent stone formation Fluids Please increase your fluid intake. The goal is to urinate 2-2.5 liters per day. Adding lemon juice (two teaspoons per glass) and drinking some diluted orange juice (50/50 with water) can also be beneficial due to the high citrate content. Please try and keep your urine clear. If it is dark, this means it is concentrated, and you need km drinking more fluid. Salt Try to limit your salt intake. If you use salt with cooking don't add any additional salt at the table. Please watch the amount of sodium in canned, processed, or frozen foods. Oxalate Try to limit tea, chocolate, nuts (including peanut butter), spinach, kale, strawberries and rhubarb Protein Finally, try to limit your meat portions to the size of a deck of cards. Lean proteins like fish and chicken are preferably to red meat. Pt will follow up as needed Candace Trammell MD [facility] Urologic Oncology documented in this [id number] History of Present illness Narrative* Candace Trammell MD - 08/02/2022 8:54 AM EDT Cystourethroscopy with Stent Removal ATTENDING: Candace Trammell MD PREOPERATIVE DIAGNOSIS(ES): Nephrolithiasis s/p URS POSTOPERATIVE DIAGNOSIS(ES): Same PROCEDURE PERFORMED: Flexible Cystourethroscopy and stent pull ANESTHESIA: 2% plain lidocaine jelly INDICATIONS: S/p URS PROCEDURE DETAILS: The patient was properly identified. Consent was obtained. The patient was placed in supine position and prepped and draped in standard fashion with lidocaine jelly per urethra for anesthesia. The flexible cystoscope was lubricated and placed through the urethra and into the bladder. The stent was v isualized and grasped with a flexible grasper and removed completely. The patient tolerated the procedure well and discharged in good condition. COMPLICATIONS: None I was present and performed the entire procedure. Dietary recommendations to prevent stone formation Fluids Please increase your fluid intake. The goal is to urinate 2-2.5 liters per day. Adding lemon juice (two teaspoons per glass) and drinking some diluted orange juice (50/50 with water) can also be beneficial due to the high citrate content. Please try and keep your urine clear. If it is dark, this means it is concentrated, and you need km drinking more fluid. Salt Try to limit your salt intake. If you use salt with cooking don't add any additional salt at the table. Please watch the amount of sodium in canned, processed, or frozen foods. Oxalate Try to limit tea, chocolate, nuts (including peanut butter), spinach, kale, strawberries and rhubarb Protein Finally, try to limit your meat portions to the size of a deck of cards. Lean proteins like fish and chicken are preferably to red meat. Pt will follow up as needed Candace Trammell MD [facility] Phys[facility] Urologic Oncology documented in this [id number] History of Present illness Narrative* Sulema Lazar MD - 07/12/2022 1:15 PM EDT CHIEF COMPLAINT Right knee instability and pain HISTORY OF PRESENT ILLNESS Ethan is a 17 y.o. female with history of EDS who presents today for evaluation of Right knee patellofemoral instability and discussion of her MRI results. PHYSICAL EXAMINATION There were no vitals filed for this visit. Physical examination does reveal a healthy appearing 17 y.o. female in no acute distress. She does have symmetric pulses in her bilateral upper extremities and lower extremities. She has good skin turgor in her bilateral upper extremities and lower extremities. She has symmetric light touch sensation in her bilateral upper extremities and lower extremities. Left Knee Exam: Full range of motion and strength. There are no areas of tenderness. The instability examination isnegative. Right Knee Exam: Range Of Motion: -2 to 130 Well healed surgical incisions at the tibial tubercle and medial PF joint. Crepitus: Negative Effusion: Negative Quad strength: fair Tender to palpation over: PF joint Bradly: Negative Siria: Negative Anterior Drawer: Negative Posterior Drawer: Negative Valgus Stress: Negative Varus Stress: Negative Squat test: positive Thessaly test: negative Patellar apprehension test: positive Patellar tilt test: positive J-sign: negative IMAGING Xrays Right knee: Status post tibial tubercle osteotomy. No acute osseous abnormality. Right knee MRI indicates: 1. Focal edema in the superior-lateral aspect of Hoffa's fat pad suggests possible anterior impingement. 2. Otherwise no internal derangement. 3. Tibial fixation hardware with associated susceptibility artifact. 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 2) Caution with kneeling and squatting. 3) PF stabilization brace given. 4) After extensive discussion of treatment options the patient has elected to undergo right knee arthroscopy with MPFL reconstruction with allograft. The indications, risks of potential complications and benefits of the procedure were fully explained, including but not limited to bleeding, infection, neurovascular injury, wound complications, continued pain, arthritis, stiffness, need for further surgery, re-injury or re-tear, DVT, PE, loss of limb, anesthesia complications including heart attack, stroke, . The patient understands all the risks and does wish to proceed. We will schedule this in a timely fashion. If there are any questions prior to this, the patient was instructed to contact the office. [facility] History of Present illness Narrative* Sulema Lazar MD - 06/14/2022 9:30 AM EDT CHIEF COMPLAINT Right knee instability and pain HISTORY OF PRESENT ILLNESS Ethan is a 17 y.o. female with history of EDS who presents today for evaluation of Right knee. Mechanism Of Injury: She reports repeated nearly daily patellar dislocations over the last several years despite prior surgery. The most recent dislocation was 2-3 days ago. The symptoms have been present for several year(s). Onset: chronic Pain location: anteromedial Pain severity: moderate Pain character: aching Numbness/Tingling: No Mechanical symptoms: popping Effusions: Yes Instability: Yes Alleviating factors/Treatments tried: ice, brace, PT Aggravating factors: kneeling, squatting, stairs. Previous physical therapy: Yes Previous injections: No Previous surgery: Yes, TTO with lateral release and medial soft tissue repair in 2019 at an O[facility]. Occupation: student. PAST MEDICAL/SURGICAL HISTORY The patient's past medical history, past surgical history, social history, medications, and allergies were reviewed and are documented in the patient's chart. REVIEW OF SYSTEMS General ROS: negative for - chills, fever or night sweats Respiratory ROS: no cough, shortness of breath, or wheezing Cardiovascular ROS: no chest pain or dyspnea on exertion Musculoskeletal ROS: positive for - generalized right knee joint pain. Neurological ROS: no TIA or stroke symptoms Skin/ integumentary ROS: no generalized rashes, no generalized erythema, no open lesions PHYSICAL EXAMINATION There were no vitals filed for this visit. Physical examination does reveal a healthy appearing 17 y.o. female in no acute distress. She does have symmetric pulses in her bilateral upper extremities and lower extremities. She has good skin turgor in her bilateral upper extremities and lower extremities. She has symmetric light touch sensation in her bilateral upper extremities and lower extremities. Left Knee Exam: Full range of motion and strength. There are no areas of tenderness. The instability examination isnegative. Right Knee Exam: Range Of Motion: -2 to 130 Well healed surgical incisions at the tibial tubercle and medial PF joint. Crepitus: Negative Effusion: Negative Quad strength: fair Tender to palpation over: PF joint Bradly: Negative Siria: Negative Anterior Drawer: Negative Posterior Drawer: Negative Valgus Stress: Negative Varus Stress: Negative Squat test: positive Thessaly test: negative Patellar apprehension test: positive Patellar tilt test: positive J-sign: negative IMAGING Xrays Right knee: Status post tibial tubercle osteotomy. No acute osseous abnormality. 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 2) Caution with kneeling and squatting. 3) MRI of the right knee ordered. 4) Follow up after MRI is completed. 5) PF stabilization brace given. documented in this encounter[facility] Physician Emergency department Note* Roosevelt Gonzalez MD - 05/14/2022 1:09 PM EDT Emergency Department Report [facility] EMERGENCY DEPARTMENT Service Date:.05/14/22 PCP: Meme Gimenez Chief Complaint: Chief Complaint Patient presents with Knee Injury R knee gave out while walking up stairs yesterday, patient felt pop and has screws in knee from previous surgery, states she has pain and difficulty ambulating since. HPI Ethan Hernandez is a 17 y.o. female presents to the ED today due to Right knee pain status post fall. Patient states she has had multiple surgeries onto the knee and had an episode she fell a few days ago. Patient states she is has pain with ambulation. Patient denies any other injuries. She statesthe swelling was much worse yesterday but is improved today. She states that she likely will need another procedure on her knee. She states when she stands the swelling is more pronounced but it is improved with lying down. Review of Systems: Review of Systems All other systems reviewed and are negative. Past Medical History: Past Medical History: Diagnosis Date Aphthous ulcer of mouth 11/01/2020 Deliberate self-cutting 06/08/2019 Yola-Danlos syndrome Dx age 3 Encounter for routine child health examination without abnormal findings 10/01/2016 Fibromyalgia Hematochezia 11/01/2020 Hip pain, acute, unspecified laterality 12/02/2017 Hx of echocardiogram 11/30/2015 [facility] 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 Added automatically from request for surgery [id number] Irregular periods 10/01/2016 Muscle tension headache 03/18/2017 Nausea and vomiting 11/01/2020 Non-cardiac chest pain 11/01/2020 Pharyngitis 11/01/2020 Post-concussion syndrome 06/21/2016 Viral gastroenteritis 05/20/2019 Past Surgical History: Past Surgical History: Procedure Laterality Date KNEE SURGERY Right 10/14/[address] [facility] OTHER SURGICAL 07/04/2018 gastric emptying with normal results [facility] APPENDECTOMY LAPAROSCOPIC 12/04/2017 [facility] TONSILLECTOMY ADENOIDECTOMY 01/2010 [facility]acie isaac. Allergies: Allergies Allergen Reactions Latex Atopic Dermatitis Coconut Oil Rash Dhea Rash Prasterone Rash Tape [*Tape] Rash Silk tape Medications: Patient's Medications New Prescriptions No medications on file Previous Medications LISDEXAMFETAMINE DIMESYLATE 60 MG CAPSULE Take 60 mg by mouth Daily (with dinner). MINOCYCLINE HCL 50 MG TABLET Take 50 mg by mouth 2 times daily. QUETIAPINE 25 MG TABLET Take 50 mg by mouth daily. SENNOSIDES 8.6 MG TABLET Take by mouth daily. 4 tablets daily SENNOSIDES 8.6 MG TABLET Take 34.4 mg by mouth Daily (with dinner). VYVANSE 50 MG CAPSULE Take 50 mg by mouth daily every morning. Modified Medications No medications on file Discontinued Medications No medications on file Family History: Family History Problem Relation Age of Onset Stroke Mother Migraines Mother Other - Specify Sister depression, anxiety, bipolar disorder, ADHD Hypertension Maternal Grandmother Diabetes Maternal Grandmother Hypertension Maternal Grandfather No known problems Father Social History: Social History Socioeconomic History Marital status: Single Spouse name: Not on file Number of children: Not on file Years of education: 7 Highest education level: Not on file Occupational History Not on file Tobacco Use Smoking status: Never Smokeless tobacco: Never Vaping Use Vaping Use: Never used Substance and Sexual Activity Alcohol use: No Drug use: No Sexual activity: Yes Partners: Male control/protection: Condom Other Topics Concern Service Not Asked Blood Transfusions Not Asked Caffeine Concern Not Asked Occupational Exposure Not Asked Hobby Hazards Not Asked Sleep Concern Not Asked Stress Concern Not Asked Weight Concern Not Asked Special Diet Not Asked Back Care Not Asked Exercise Not Asked Bike Helmet Not Asked Seat Belt Not Asked Domestic Violence No Social History Narrative Not on file Social Determinants of Health Financial Resource Strain: Not on file Food Insecurity: Not on file Transportation Needs: Not on file Physical Activity: Not on file Stress: Not on file Social Connections: Not on file Intimate Partner Violence: Not on file Housing Stability: Not on file Physical Exam: Physical Exam Constitutional: Appearance: Normal appearance. HENT: Head: Normocephalic and atraumatic. Right Ear: Tympanic membrane and external ear normal. Left Ear: Tympanic membrane and external ear normal. Nose: Nose normal. Mouth/Throat: Mouth: Mucous membranes are moist. Pharynx: Oropharynx is clear. Eyes: Conjunctiva/sclera: Conjunctivae normal. Pupils: Pupils are equal, round, and reactive to light. Cardiovascular: Rate and Rhythm: Normal rate and regular rhythm. Pulses: Normal pulses. Pulmonary: Effort: Pulmonary effort is normal. No respiratory distress. Breath sounds: Normal breath sounds. No wheezing. Abdominal: General: Abdomen is flat. Bowel sounds are normal. There is no distension. Palpations: Abdomen is soft. Tenderness: There is no abdominal tenderness. Musculoskeletal: General: Normal range of motion. Cervical back: Normal range of motion and neck supple. Comments: There is palpation to the right knee. The right patella is with appearance of subluxationmedially. She states it is different from her normal presentation. Patient has some soft tissue swelling just distal to the patella. Range of motion decreased secondary to pain. Skin: General: Skin is warm and dry. Capillary Refill: Capillary refill takes less than 2 seconds. Neurological: General: No focal deficit present. Mental Status: She is alert and oriented to person, place, and time. Mental status is at baseline. Psychiatric: Mood and Affect: Mood normal. Behavior: Behavior normal. Vital Signs During ED Visit Patient Vitals for the past 24 hrs: BP Temp Temp src Pulse Resp SpO2 05/14/22 1305 122/71 -- -- 70 18 100 % 05/14/22 1125 133/81 97.5 F (36.4 C) Oral 61 18 100 % Differential Diagnosis: fracture, dislocation, sprain Orders/Results: Orders Placed This Encounter XR KNEE RIGHT 3 VIEWS Results for orders placed or performed during the hospital encounter of 01/04/22 CBC, EDIF, PLATELET Result Value Ref Range WBC (WHITE BLOOD COUNT) 4.1 3.6 - 11.0 10*3/uL RBC 4.34 4.0 - 5.4 10*6/uL HEMOGLOBIN (HGB) 13.8 12.0 - 16.0 G/DL HEMATOCRIT (HCT) 40.7 36.0 - 48.0 % MEAN CELL VOLUME 93.7 80.0 - 100.0 FL Mean Cell HGB 31.7 26.0 - 35.0 PG MEAN CELL HGB CONCENTRATION 33.8 27.0 - 37.0 G/DL RBC DISTRIBUTION 13.3 11.5 - 14.5 % PLATELET COUNT 280 130.0 - 400.0 10*3/uL MEAN PLATELET VOLUME 6.7 (L) 7.4 - 11.0 FL DIFFERENTIAL TYPE AUTO DIFF % NEUTROPHILS 54.6 37.0 - 75.0 % LYMPHOCYTE 36.9 20.0 - 55.0 % MONOCYTE % 6.7 0.0 - 10.0 % EOSINOPHIL % 0.8 0.0 - 11.0 % BASOPHIL % 1.0 0.0 - 2.0 % Absolute Neutrophil Count 2.3 1.4 - 6.5 10*3/uL LYMPHOCYTES, ABSOLUTE 1.5 1.2 - 3.4 10*3/uL MONOCYTES, ABSOLUTE 0.3 0.0 - 0.7 10*3/uL ABSOLUTE EOSINOPHIL COUNT 0.0 0.0 - 0.7 10*3/uL ABSOLUTE BASOPHIL COUNT 0.0 0.0 - 0.2 10*3/uL CHEM 7 (LYTES,BUN,CREA,GLUC) Result Value Ref Range Glucose 94 70 - 100 MG/DL BUN 9 7 - 20 MG/DL CREATININE SERUM 0.71 0.52 - 1.04 MG/DL SODIUM 139 136 - 145 MMOL/L POTASSIUM 3.6 3.5 - 5.1 MMOL/L CHLORIDE 105 98 - 107 MMOL/L CARBON DIOXIDE (CO2) 25 22 - 30 MMOL/L GFR COMMENT Unable to calculate GFR due to inappropriate age/gender/creatinine value. TROPONIN I, HIGH SENSITIVITY Result Value Ref Range TROPONIN I, HIGH SENSITIVITY <2 0 - 12 pg/mL TSH Result Value Ref Range TSH 0.616 0.45 - 5.33 uIU/ML Radiographic Imaging XR KNEE RIGHT 3 VIEWS Final Result IMPRESSION: 1. No evidence of fracture or other acute traumatic bony pathology of the right knee is seen. 2. Prior surgical screw fixation of the anterior tibia. Moderate Sedation Procedure: No Procedures: Procedures ED Summary: Imaging is unremarkable. Patient be discharged home in stable condition with follow-up on outpatient basis. If patient has changes symptoms, worsening symptoms, any other issues she can return for reevaluation otherwise a follow-up on outpatient basis Clinical Impression: 1. Contusion of right knee, initial encounter No follow-ups on file. New Prescriptions No medications on file Discontinued Medications No medications on file An After Visit Summary was printed and given to the patient with above information. . . Roosevelt Gonzalez MD 05/14/22 13[address] [facility] Work Phone: [phone] [phone] Emergency department Note* Roosevelt Gonzalez MD - 05/14/2022 1:09 PM EDT Emergency Department Report [facility] EMERGENCY DEPARTMENT Service Date:.05/14/22 PCP: Meme Gimenez Chief Complaint: Chief Complaint Patient presents with Knee Injury R knee gave out while walking up stairs yesterday, patient felt pop and has screws in knee from previous surgery, states she has pain and difficulty ambulating since. HPI Ethan Hernandez is a 17 y.o. female presents to the ED today due to Right knee pain status post fall. Patient states she has had multiple surgeries onto the knee and had an episode she fell a few days ago. Patient states she is has pain with ambulation. Patient denies any other injuries. She statesthe swelling was much worse yesterday but is improved today. She states that she likely will need another procedure on her knee. She states when she stands the swelling is more pronounced but it is improved with lying down. Review of Systems: Review of Systems All other systems reviewed and are negative. Past Medical History: Past Medical History: Diagnosis Date Aphthous ulcer of mouth 11/01/2020 Deliberate self-cutting 06/08/2019 Yola-Danlos syndrome Dx age 3 Encounter for routine child health examination without abnormal findings 10/01/2016 Fibromyalgia Hematochezia 11/01/2020 Hip pain, acute, unspecified laterality 12/02/2017 Hx of echocardiogram 11/30/2015 [facility] 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 Added automatically from request for surgery [id number] Irregular periods 10/01/2016 Muscle tension headache 03/18/2017 Nausea and vomiting 11/01/2020 Non-cardiac chest pain 11/01/2020 Pharyngitis 11/01/2020 Post-concussion syndrome 06/21/2016 Viral gastroenteritis 05/20/2019 Past Surgical History: Past Surgical History: Procedure Laterality Date KNEE SURGERY Right 10/14/[address] [facility] OTHER SURGICAL 07/04/2018 gastric emptying with normal results [facility] APPENDECTOMY LAPAROSCOPIC 12/04/2017 [facility] TONSILLECTOMY ADENOIDECTOMY 01/2010 [facility] Allergies: Allergies Allergen Reactions Latex Atopic Dermatitis Coconut Oil Rash Dhea Rash Prasterone Rash Tape [*Tape] Rash Silk tape Medications: Patient's Medications New Prescriptions No medications on file Previous Medications LISDEXAMFETAMINE DIMESYLATE 60 MG CAPSULE Take 60 mg by mouth Daily (with dinner). MINOCYCLINE HCL 50 MG TABLET Take 50 mg by mouth 2 times daily. QUETIAPINE 25 MG TABLET Take 50 mg by mouth daily. SENNOSIDES 8.6 MG TABLET Take by mouth daily. 4 tablets daily SENNOSIDES 8.6 MG TABLET Take 34.4 mg by mouth Daily (with dinner). VYVANSE 50 MG CAPSULE Take 50 mg by mouth daily every morning. Modified Medications No medications on file Discontinued Medications No medications on file Family History: Family History Problem Relation Age of Onset Stroke Mother Migraines Mother Other - Specify Sister depression, anxiety, bipolar disorder, ADHD Hypertension Maternal Grandmother Diabetes Maternal Grandmother Hypertension Maternal Grandfather No known problems Father Social History: Social History Socioeconomic History Marital status: Single Spouse name: Not on file Number of children: Not on file Years of education: 7 Highest education level: Not on file Occupational History Not on file Tobacco Use Smoking status: Never Smokeless tobacco: Never Vaping Use Vaping Use: Never used Substance and Sexual Activity Alcohol use: No Drug use: No Sexual activity: Yes Partners: Male control/protection: Condom Other Topics Concern Service Not Asked Blood Transfusions Not Asked Caffeine Concern Not Asked Occupational Exposure Not Asked Hobby Hazards Not Asked Sleep Concern Not Asked Stress Concern Not Asked Weight Concern Not Asked Special Diet Not Asked Back Care Not Asked Exercise Not Asked Bike Helmet Not Asked Seat Belt Not Asked Domestic Violence No Social History Narrative Not on file Social Determinants of Health Financial Resource Strain: Not on file Food Insecurity: Not on file Transportation Needs: Not on file Physical Activity: Not on file Stress: Not on file Social Connections: Not on file Intimate Partner Violence: Not on file Housing Stability: Not on file Physical Exam: Physical Exam Constitutional: Appearance: Normal appearance. HENT: Head: Normocephalic and atraumatic. Right Ear: Tympanic membrane and external ear normal. Left Ear: Tympanic membrane and external ear normal. Nose: Nose normal. Mouth/Throat: Mouth: Mucous membranes are moist. Pharynx: Oropharynx is clear. Eyes: Conjunctiva/sclera: Conjunctivae normal. Pupils: Pupils are equal, round, and reactive to light. Cardiovascular: Rate and Rhythm: Normal rate and regular rhythm. Pulses: Normal pulses. Pulmonary: Effort: Pulmonary effort is normal. No respiratory distress. Breath sounds: Normal breath sounds. No wheezing. Abdominal: General: Abdomen is flat. Bowel sounds are normal. There is no distension. Palpations: Abdomen is soft. Tenderness: There is no abdominal tenderness. Musculoskeletal: General: Normal range of motion. Cervical back: Normal range of motion and neck supple. Comments: There is palpation to the right knee. The right patella is with appearance of subluxationmedially. She states it is different from her normal presentation. Patient has some soft tissue swelling just distal to the patella. Range of motion decreased secondary to pain. Skin: General: Skin is warm and dry. Capillary Refill: Capillary refill takes less than 2 seconds. Neurological: General: No focal deficit present. Mental Status: She is alert and oriented to person, place, and time. Mental status is at baseline. Psychiatric: Mood and Affect: Mood normal. Behavior: Behavior normal. Vital Signs During ED Visit Patient Vitals for the past 24 hrs: BP Temp Temp src Pulse Resp SpO2 05/14/22 1305 122/71 -- -- 70 18 100 % 05/14/22 1125 133/81 97.5 F (36.4 C) Oral 61 18 100 % Differential Diagnosis: fracture, dislocation, sprain Orders/Results: Orders Placed This Encounter XR KNEE RIGHT 3 VIEWS Results for orders placed or performed during the hospital encounter of 01/04/22 CBC, EDIF, PLATELET Result Value Ref Range WBC (WHITE BLOOD COUNT) 4.1 3.6 - 11.0 10*3/uL RBC 4.34 4.0 - 5.4 10*6/uL HEMOGLOBIN (HGB) 13.8 12.0 - 16.0 G/DL HEMATOCRIT (HCT) 40.7 36.0 - 48.0 % MEAN CELL VOLUME 93.7 80.0 - 100.0 FL Mean Cell HGB 31.7 26.0 - 35.0 PG MEAN CELL HGB CONCENTRATION 33.8 27.0 - 37.0 G/DL RBC DISTRIBUTION 13.3 11.5 - 14.5 % PLATELET COUNT 280 130.0 - 400.0 10*3/uL MEAN PLATELET VOLUME 6.7 (L) 7.4 - 11.0 FL DIFFERENTIAL TYPE AUTO DIFF % NEUTROPHILS 54.6 37.0 - 75.0 % LYMPHOCYTE 36.9 20.0 - 55.0 % MONOCYTE % 6.7 0.0 - 10.0 % EOSINOPHIL % 0.8 0.0 - 11.0 % BASOPHIL % 1.0 0.0 - 2.0 % Absolute Neutrophil Count 2.3 1.4 - 6.5 10*3/uL LYMPHOCYTES, ABSOLUTE 1.5 1.2 - 3.4 10*3/uL MONOCYTES, ABSOLUTE 0.3 0.0 - 0.7 10*3/uL ABSOLUTE EOSINOPHIL COUNT 0.0 0.0 - 0.7 10*3/uL ABSOLUTE BASOPHIL COUNT 0.0 0.0 - 0.2 10*3/uL CHEM 7 (LYTES,BUN,CREA,GLUC) Result Value Ref Range Glucose 94 70 - 100 MG/DL BUN 9 7 - 20 MG/DL CREATININE SERUM 0.71 0.52 - 1.04 MG/DL SODIUM 139 136 - 145 MMOL/L POTASSIUM 3.6 3.5 - 5.1 MMOL/L CHLORIDE 105 98 - 107 MMOL/L CARBON DIOXIDE (CO2) 25 22 - 30 MMOL/L GFR COMMENT Unable to calculate GFR due to inappropriate age/gender/creatinine value. TROPONIN I, HIGH SENSITIVITY Result Value Ref Range TROPONIN I, HIGH SENSITIVITY <2 0 - 12 pg/mL TSH Result Value Ref Range TSH 0.616 0.45 - 5.33 uIU/ML Radiographic Imaging XR KNEE RIGHT 3 VIEWS Final Result IMPRESSION: 1. No evidence of fracture or other acute traumatic bony pathology of the right knee is seen. 2. Prior surgical screw fixation of the anterior tibia. Moderate Sedation Procedure: No Procedures: Procedures ED Summary: Imaging is unremarkable. Patient be discharged home in stable condition with follow-up on outpatient basis. If patient has changes symptoms, worsening symptoms, any other issues she can return for reevaluation otherwise a follow-up on outpatient basis Clinical Impression: 1. Contusion of right knee, initial encounter No follow-ups on file. New Prescriptions No medications on file Discontinued Medications No medications on file An After Visit Summary was printed and given to the patient with above information. . . Roosevelt Gonzalez MD 05/14/22 [id number] [facility] History of Present illness Narrative* Fabiola Lamar RN - 05/04/2022 11:19 AM EST Opened for flowsheet documented in this [id number] History of Present illness Narrative* Dallin More MD - 05/01/2022 1:04 PM EST Images from the original note were not included. BREAST CONSULT HISTORY & PHYSICAL EXAMINATION Patient Name: Ethan Hernandez MR #: [id number] : 2005 Physicians: Meme Gimenez CNP (Family); No ref. provider found (Referring) Subjective 17-year-old female returns today after undergoing left breast biopsy History of Present Illness: The patient is a 17 y.o. female past medical history of anxiety, depression, airless Danlos, fibromyalgia referred for an abnormal left breast ultrasound. Patient reports that she has felt nodules in both breast. Was concerned and examined by her family physician who ordered bilateral breast ultrasounds. The left breast at 1:00 a 1 cm small mass was identified. She is referred for surgical management. She denies any nipple retraction or drainage. Her family history is notable for paternal aunt and maternal aunt with history of breast cancer as well as distant great-grandmother with history of ovarian cancer. Risk Factors Age of menarche at 9 years Age of menopause at n/a} years. 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 History of nursing: no. control pills: yes. Hormone replacement therapy: no. Caffeine intake yes History of prior breast biopsy no History of prior breast cancer no Family History : Breast cancer yes Ovarian Cancer yes Endometrial cancer no Family History of breast disease no History: I have reviewed the PMHx, PSHx, SHx, FHx in EMR with the patient during this encounter face to faceand patient agrees with the documentation Past Medical History: Diagnosis Date Anemia Anxiety Arrhythmia Autonomic dysfunction Depression Yola-Danlos disease Fatigue Fibromyalgia, primary Gastroparesis Major depressive disorder POTS (postural orthostatic tachycardia syndrome) Past Surgical History: Procedure Laterality Date ADENOIDECTOMY age 4 APPENDECTOMY 12/04/2017 without diagnostic abnormality.....Dr. Robbin Jain ARHTROSCOPY KNEE WITH OR WITHOUT MENISECTOMY Right 10/14/2019 Procedure: Right knee tibial tubercle osteotomy with a medial soft tissue imbrication and lateral release; Surgeon: Mary Miguel MD; Location: Main OR; Service: Orthopedic COLONOSCOPY 12/12/2018 [facility] ESOPHAGOGASTRODUODENOSCOPY 12/12/2018 [facility] TONSILLECTOMY age 4 US BREAST BIOPSY LEFT Left 04/25/2022 US BREAST BIOPSY LEFT 04/25/2022 Meme Ortega MD ULTRASOUND Family History Problem Relation Age of Onset Stroke Mother Ovarian cancer Mother 19 Autism Brother Breast cancer Paternal Aunt 40 Diabetes Maternal Grandmother Hyperlipidemia Maternal Grandmother Hypertension Maternal Grandmother Hyperlipidemia Maternal Grandfather Hypertension Maternal Grandfather Colon cancer Neg Hx Rectal cancer Neg Hx Social History Socioeconomic History Marital status: Single Tobacco Use Smoking status: Never Smokeless tobacco: Never Vaping Use Vaping Use: Never used Substance and Sexual Activity Alcohol use: No Drug use: No Social Determinants of Health Financial Resource Strain: Low Risk Difficulty of Paying Living Expenses: Not hard at all Food Insecurity: No Food Insecurity Worried About Running Out of Food in the Last Year: Never true Ran Out of Food in the Last Year: Never true Transportation Needs: No Transportation Needs Lack of Transportation (Medical): No Lack of Transportation (Non-Medical): No Physical Activity: Insufficiently Active Days of Exercise per Week: 3 days Minutes of Exercise per Session: 30 min Stress: Stress Concern Present Feeling of Stress : Rather much Social Connections: Socially Isolated Frequency of Communication with Friends and Family: More than three times a week Frequency of Social Gatherings with Friends and Family: Once a week Attends Caodaism Services: Never Active Member of Clubs or Organizations: No Attends Club or Organization Meetings: Never Marital Status: Never Housing Stability: Low Risk Unable to Pay for Housing in the Last Year: No Number of Places Lived in the Last Year: 1 Unstable Housing in the Last Year: No Allergy Information: I have reviewed the patient's allergies. Latex, Coconut oil, Prasterone (dhea), and Silk tape Home Medications: Outpatient Medications as of 05/01/2022 Medication Sig senna (SENOKOT) 8.6 mg tablet Take 4 times a day for chronic constipation . Vyvanse 70 mg capsule Take 1 (one) capsule (70 mg total) by mouth every morning . Review of Systems: Review of Systems Physical Examination: Vital Signs: BP 128/87 Pulse 72 Wt 55.8 kg (123 lb) BMI 18.98 kg/m Physical Exam Constitutional: Appearance: Normal appearance. HENT: Head: Normocephalic. Nose: Nose normal. Mouth/Throat: Mouth: Mucous membranes are moist. Eyes: Pupils: Pupils are equal, round, and reactive to light. Cardiovascular: Rate and Rhythm: Normal rate. Pulses: Normal pulses. Chest: Breasts: Right: No inverted nipple, mass or nipple discharge. Left: No mass or nipple discharge. Abdominal: General: There is no distension. Palpations: Abdomen is soft. Musculoskeletal: General: Normal range of motion. Cervical back: Normal range of motion. Lymphadenopathy: Upper Body: Right upper body: No axillary or pectoral adenopathy. Left upper body: No axillary or pectoral adenopathy. Skin: General: Skin is warm. Coloration: Skin is not jaundiced. Neurological: General: No focal deficit present. Mental Status: She is alert. Psychiatric: Mood and Affect: Mood normal. Thought Content: Thought content normal. Judgment: Judgment normal. Laboratory and Additional Data Reviewed: Laboratory 05/01/22 1:05 PM Imaging Bilateral breast ultrasound 04/03/2022 IMPRESSION: 1. Incidental probably benign 1 cm mass in the left breast 1 o'clock axis favoring a fibroepithelial lesion such as fibroadenoma in this age group. Recommend ultrasound follow-up in 6 months to ensure stability. 2. Unremarkable ultrasound of the right breast in the area of patient's concern. Consider continuedclinical follow-up for patient's symptoms. BIRADS - CATEGORY 3 Pathology- Final Diagnosis A. Breast, Left, 1:00 o'clock, ultrasound-guided biopsy: Fibroadenoma with pseudoangiomatous stromal hyperplasia. Assessment and Plan: 17 y.o. female with above history referred for incidental 1 cm benign-appearing mass seen on left breast ultrasound Long discussion with the patient about its benign appearing features on ultrasound. Would recommendsurveillance imaging at 6 months. However patient is very anxious because of her family history anddiscussion with her mother patient would like to confirm what this mass is. Left breast ultrasound-guided biopsy performed and fibroadenoma with PASH identified. Would not recommend any surgical management Routine screening mammography to start at age of 38 Patient complains of bilateral breast pain, would recommend the use of [id number] Tylenol andibuprofen. Can have discussion with her family physician about use of oral contraception 1. Breast fibroadenoma, left 2. Pseudoangiomatous stromal hyperplasia of breast Total time 10 minutes, greater than 50% spent [id number] with the patient obtaining history, performing exam explaining her imaging and coordinating care documented in this [id number] History of Present illness Narrative* Fabiola Lamar RN - 04/25/2022 1:26 PM EST Post-procedure call, c/o pain but is using ice and taking Tylenol, no other needs expressed, support provided. documented in this [id number] History of Present illness Narrative* Yina Ahn CNP - 04/23/2022 11:32 AM EST Ethan Hernandez 17 y.o. 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 Patient states she has been dealing with GI issues since she was 7 years old. Was seeing GI at [facility] and had EGD and colonoscopy 12/12/2018 [facility]--both were normal. She had gastric emptying study 11/17/2021 with delayed gastric emptying in the liquid phase with normal gastric emptying the solid phase of a dual phase liquid/solid meal. She was to undergo repeat EGD and colonoscopy in January 2022--due to inability to tolerate MiraLAXhad to be admitted and NG placed. She says she underwent rectal manometry while prepping and becameso nauseated and bloated with the MiraLAX prep that she could not tolerate the full prep so that procedure was canceled. She has tried diet and exercise, increased water intake. Sennakot 4 times a day was recommended by previous nutrition aide, she says they told her she was anorexic and she needed to eat. Patient denies anorexia. 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 She eats small meals several times a day and does choose healthy snacks throughout the day. She states if she does eat a large meal or a heavy meal such as pasta--she will remain full and be unable to eat the rest of the day. Symptoms include abdominal pain, bloating, nausea, early satiety, and constipation. For the last several months bowels move once a week--prior to this at most was3 times a week. Endorses normal sensation to have a bowel movement and when she does she denies anystraining and is able to pass stool easily. Rates stools 3-4 on the [place] stool scale. Denies anylaxative use. She does take Vyvanse for her ADHD, she did have an initial decrease in weight and kip pped to about 110 pounds, weight loss has leveled off and dose has not been increased. Past Medical History: Past Medical History: Diagnosis Date Anemia Anxiety Arrhythmia Autonomic dysfunction Depression Yola-Danlos disease Fatigue Fibromyalgia, primary Gastroparesis Major depressive disorder POTS (postural orthostatic tachycardia syndrome) Surgical History & Procedures: Past Surgical History: Procedure Laterality Date ADENOIDECTOMY age 4 APPENDECTOMY 12/04/2017 without diagnostic abnormality.....Dr. Robbin Jain ARHTROSCOPY KNEE WITH OR WITHOUT MENISECTOMY Right 10/14/2019 Procedure: Right knee tibial tubercle osteotomy with a medial soft tissue imbrication and lateral release; Surgeon: Mary Miguel MD; Location: Main OR; Service: Orthopedic COLONOSCOPY 12/12/2018 [facility] ESOPHAGOGASTRODUODENOSCOPY 12/12/2018 [facility] TONSILLECTOMY age 4 Social History: Social History Socioeconomic History Marital status: Single Tobacco Use Smoking status: Never Smokeless tobacco: Never Vaping Use Vaping Use: Never used Substance and Sexual Activity Alcohol use: No Drug use: No Social Determinants of Health Financial Resource Strain: Low Risk Difficulty of Paying Living Expenses: Not hard at all Food Insecurity: No Food Insecurity Worried About Running Out of Food in the Last Year: Never true Ran Out of Food in the Last Year: Never true Transportation Needs: No Transportation Needs Lack of Transportation (Medical): No Lack of Transportation (Non-Medical): No Physical Activity: Insufficiently Active Days of Exercise per Week: 3 days Minutes of Exercise per Session: 30 min Stress: Stress Concern Present Feeling of Stress : Rather much Social Connections: Socially Isolated Frequency of Communication with Friends and Family: More than three times a week Frequency of Social Gatherings with Friends and Family: Once a week Attends Caodaism Services: Never Active Member of Clubs or Organizations: No Attends Club or Organization Meetings: Never Marital Status: Never Housing Stability: Low Risk Unable to Pay for Housing in the Last Year: No Number of Places Lived in the Last Year: 1 Unstable Housing in the Last Year: No Family History Problem Relation Age of Onset Stroke Mother Ovarian cancer Mother 19 Autism Brother Breast cancer Paternal Aunt 40 Diabetes Maternal Grandmother Hyperlipidemia Maternal Grandmother Hypertension Maternal Grandmother Hyperlipidemia Maternal Grandfather Hypertension Maternal Grandfather Colon cancer Neg Hx Rectal cancer Neg Hx Current Medications: Current Outpatient Medications Medication Sig Dispense Refill senna (SENOKOT) 8.6 mg tablet Take 4 times a day for chronic constipation . 120 tablet 2 Vyvanse 70 mg capsule Take 1 (one) capsule (70 mg total) by mouth every morning . No current facility-administered medications for this visit. Review of Systems Constitutional: Negative for appetite change, fatigue, fever and unexpected weight change. HENT: Negative for mouth sores, trouble swallowing and voice change. Eyes: Negative for redness. Respiratory: Negative for cough, choking and shortness of breath. Cardiovascular: Negative for chest pain and palpitations. Gastrointestinal: Positive for abdominal distention, abdominal pain, constipation and nausea. Negative for blood in stool, diarrhea and vomiting. Endocrine: Negative. Genitourinary: Negative for difficulty urinating. Musculoskeletal: Negative for arthralgias and joint swelling. Skin: Negative for color change and pallor. Allergic/Immunologic: Negative. Neurological: Negative for dizziness, syncope and light-headedness. Hematological: Negative. Psychiatric/Behavioral: Negative. Physical Exam Constitutional: General: She is not in acute distress. HENT: Head: Normocephalic and atraumatic. Right Ear: External ear normal. Left Ear: External ear normal. Nose: Nose normal. Mouth/Throat: Mouth: Mucous membranes are moist. Pharynx: No posterior oropharyngeal erythema. Eyes: General: No scleral icterus. Pupils: Pupils are equal, round, and reactive to light. Cardiovascular: Rate and Rhythm: Normal rate and regular rhythm. Heart sounds: No murmur heard. No gallop. Pulmonary: Effort: Pulmonary effort is normal. No respiratory distress. Breath sounds: Normal breath sounds. No wheezing. Abdominal: General: Abdomen is flat. Bowel sounds are normal. There is no distension. Palpations: Abdomen is soft. There is no mass. Tenderness: There is abdominal tenderness (Diffuse, generalized). Musculoskeletal: General: No deformity. Normal range of motion. Cervical back: Normal range of motion and neck supple. Skin: General: Skin is warm and dry. Coloration: Skin is not jaundiced or pale. Neurological: General: No focal deficit present. Mental Status: She is alert and oriented to person, place, and time. Psychiatric: Mood and Affect: Mood normal. Behavior: Behavior normal. No visits with results within 30 Day(s) from this visit. Latest known visit with results is: Lab Draw on 02/06/2022 Component Date Value Ref Range Status B12 02/06/2022 389 193 - 986 pg/mL Final Folate 02/06/2022 11.5 3.1 - 17.5 ng/mL Final Deficient <2.2 Borderline 2.2 - 3.0 Excessive >17.5 Sodium 02/06/2022 141 135 - 145 mmol/L Final Potassium 02/06/2022 3.5 3.5 - 5.1 mmol/L Final Chloride 02/06/2022 108 98 - 108 mmol/L Final Bicarbonate 02/06/2022 27 21 - 32 mmol/L Final Anion Gap 02/06/2022 10 10 - 20 mmol/L Final Glucose 02/06/2022 76 65 - 99 mg/dL Final BUN 02/06/2022 10 8 - 25 mg/dL Final Creatinine 02/06/2022 0.83 0.50 - 1.00 mg/dL Final eGFR 02/06/2022 105 >=60 mL/min/1.73 m2 Final Estimated GFR was calculated using the 2020 CKD-EPI creatinine equation. BUN/Creatinine Ratio 02/06/2022 12.0 10.0 - 20.0 Final Total Protein 02/06/2022 7.3 6.0 - 8.0 g/dL Final Albumin 02/06/2022 4.1 3.2 - 4.5 g/dL Final Calcium 02/06/2022 9.0 8.4 - 10.2 mg/dL Final Alkaline Phosphatase 02/06/2022 137 40 - 140 U/L Final AST 02/06/2022 24 0 - 45 U/L Final Total Bilirubin 02/06/2022 0.7 0.0 - 1.3 mg/dL Final ALT 02/06/2022 25 14 - 65 U/L Final Estradiol 02/06/2022 93 15 - 350 pg/mL Final Progesterone 02/06/2022 7.5 ng/mL Final Sed Rate 02/06/2022 <1 0 - 20 mm/hr Final Iron 02/06/2022 124 30 - 160 mcg/dL Final TIBC 02/06/2022 346 225 - 430 mcg/dL Final Iron Saturation 02/06/2022 36 20 - 50 % Final Magnesium 02/06/2022 2.2 1.6 - 2.4 mg/dL Final IgA 02/06/2022 131 61 - 356 mg/dL Final Celiac Disease Interpretation 02/06/2022 See Ref Lab Comment Final See Comment: Negative serology. Celiac disease unlikely. However, approximately 10% of patients with celiac disease are seronegative. Also, patients who are already adhering to a gluten-free diet may be seronegative. If celiac disease is highly clinically suspected, consider HLA-DQ typing. Test Performed by: [place] [address] First Aid Instructor: Sahil Osullivan M.D. Ph.D.; CLIA# [id number] Insulin 02/06/2022 6.0 0.0 - 20.0 mcIU/mL Final Tissue Transglutaminase IgA Ab 02/06/2022 <1.2 <4.0 (Negative) U/mL Final Test Performed by: [place] [address] First Aid Instructor: Sahil Osullivan M.D. Ph.D.; CLIA# [id number] Radiology: [place] GASTROINTESTINAL -- Nuclear Medicine Impression Delayed gastric emptying of the liquid phase with normal gastric emptying of the solid phase of a dual phase liquid/solid meal. Narrative CLINICAL HISTORY: 16-year-old with chronic nausea. Evaluate gastric emptying. COMPARISON: 07/04/2018. PROCEDURE COMMENTS: The patient was offered a standard meal of [id number] colloid-labelled egg with bread and jam and clear liquid containing Ga-67. The patient consumed 4 ounces of egg, none of the toast, none of the jam and 4 ounces of liquid. Measurements of gastric emptying were obtained at one, two, three, and four hours. Percent gastric emptying was calculated by the conjugate view/geometric mean method. Radiopharmaceutical: [id number]-[id number]-ylihip colloid-labelled egg Administered activity: 0.27 mCi Route: By mouth Radiopharmaceutical: [id number] Administered activity: 0.086 mCi Route: By mouth Date of administration: 11/17/2021 FINDINGS: Cumulative liquid gastric emptying was 58% at 1 hour and 75% at 2 hours. Cumulative solid gastric emptying was 53% at 1 hour, 75% at 2 hours,?84% at 3 hours and 92% at 4 hours. Normal gastric emptying values based on adult standards are: Liquid: >40% at 1 hour >78% at 2 hours Solid: >10% but <70% at 1 hour >40% at 2 hours* >90% at 4 hours* *An abnormal value at either 2 or 4 hours is considered an abnormal result. Procedure Note Tita Noel M.D. - 11/17/2021 CLINICAL HISTORY: 16-year-old with chronic nausea. Evaluate gastric emptying. COMPARISON: 07/04/2018. PROCEDURE COMMENTS: The patient was offered a standard meal of [id number]-falpol colloid-labelled egg with bread and jam and clear liquid containing Ga-67. The patient consumed 4 ounces of egg, none of the toast, none of the jam and 4 ounces of liquid. Measurements of gastric emptying were obtained at one, two, three, and four hours. Percent gastric emptying was calculated by the conjugate view/geometric mean method. Radiopharmaceutical: [id number] colloid-labelled egg Administered activity: 0.27 mCi Route: By mouth Radiopharmaceutical: [id number] Administered activity: 0.086 mCi Route: By mouth Date of administration: 11/17/2021 FINDINGS: Cumulative liquid gastric emptying was 58% at 1 hour and 75% at 2 hours. Cumulative solid gastric emptying was 53% at 1 hour, 75% at 2 hours,?84% at 3 hours and 92% at 4 hours. Normal gastric emptying values based on adult standards are: Liquid: >40% at 1 hour >78% at 2 hours Solid: >10% but <70% at 1 hour >40% at 2 hours* >90% at 4 hours* *An abnormal value at either 2 or 4 hours is considered an abnormal result. IMPRESSION Delayed gastric emptying of the liquid phase with normal gastric emptying of the solid phase of a dual phase liquid/solid meal. Exam End: 11/17/21 15:12 Specimen Collected: 11/17/21 16:40 Last Resulted: 11/17/21 16:42 Received From: [facility] Assessment & Plan: Chronic constipation- History of gastroparesis--gastric emptying study completed 11/17/2021 Supposed to have repeat EGD and colonoscopy unable to tolerate MiraLAX prep procedure was canceled and [facility] Completed anorectal manometry 01/2022--unable to find results Other symptoms include nausea, bloating, early satiety, abdominal pain Takes Senokot 4 times a day--out recently but when taking only has 1-3 BMs a week Increased water intake and activity 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 Occasional wrong-word or sound-like substitutions may have occurred due to inherent limitations of the voice recognition software. Please read the chart carefully and recognize, using context, where the substitutions have occurred. documented in this [id number] History of Present illness Narrative* Fabiola Lamar RN - 04/17/2022 10:34 AM EST Biopsy scheduled per documented in this [id number] History of Present illness Narrative* Dallin More MD - 04/17/2022 9:50 AM EST Images from the original note were not included. BREAST CONSULT HISTORY & PHYSICAL EXAMINATION Patient Name: Ethan Hernandez MR #: [id number] : 2005 Physicians: Meme Gimenez CNP (Family); Meme Gimenez CNP (Referring) History of Present Illness: The patient is a 17 y.o. female past medical history of anxiety, depression, airless Danlos, fibromyalgia referred for an abnormal left breast ultrasound. Patient reports that she has felt nodules in both breast. Was concerned and examined by her family physician who ordered bilateral breast ultrasounds. The left breast at 1:00 a 1 cm small mass was identified. She is referred for surgical management. She denies any nipple retraction or drainage. Her family history is notable for paternal aunt and maternal aunt with history of breast cancer as well as distant great-grandmother with history of ovarian cancer. Risk Factors Age of menarche at 9 years Age of menopause at n/a} years. 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 History of nursing: no. control pills: yes. Hormone replacement therapy: no. Caffeine intake yes History of prior breast biopsy no History of prior breast cancer no Family History : Breast cancer yes Ovarian Cancer yes Endometrial cancer no Family History of breast disease no History: I have reviewed the PMHx, PSHx, SHx, FHx in EMR with the patient during this encounter face to faceand patient agrees with the documentation Past Medical History: Diagnosis Date Anemia Anxiety Arrhythmia Autonomic dysfunction Depression Yola-Danlos disease Fatigue Fibromyalgia, primary Gastroparesis Major depressive disorder POTS (postural orthostatic tachycardia syndrome) Past Surgical History: Procedure Laterality Date ADENOIDECTOMY age 4 APPENDECTOMY 12/04/2017 without diagnostic abnormality.....Dr. Robbin Jain ARHTROSCOPY KNEE WITH OR WITHOUT MENISECTOMY Right 10/14/2019 Procedure: Right knee tibial tubercle osteotomy with a medial soft tissue imbrication and lateral release; Surgeon: Mary Miguel MD; Location: Main OR; Service: Orthopedic COLONOSCOPY 12/12/2018 [facility] ESOPHAGOGASTRODUODENOSCOPY 12/12/2018 [facility] TONSILLECTOMY age 4 Family History Problem Relation Age of Onset Stroke Mother Ovarian cancer Mother 19 Diabetes Maternal Grandmother Hyperlipidemia Maternal Grandmother Hypertension Maternal Grandmother Hyperlipidemia Maternal Grandfather Hypertension Maternal Grandfather Autism Brother Breast cancer Paternal Aunt 40 Social History Socioeconomic History Marital status: Single Tobacco Use Smoking status: Never Smokeless tobacco: Never Vaping Use Vaping Use: Never used Substance and Sexual Activity Alcohol use: No Drug use: No Social Determinants of Health Financial Resource Strain: Low Risk Difficulty of Paying Living Expenses: Not hard at all Food Insecurity: No Food Insecurity Worried About Running Out of Food in the Last Year: Never true Ran Out of Food in the Last Year: Never true Transportation Needs: No Transportation Needs Lack of Transportation (Medical): No Lack of Transportation (Non-Medical): No Physical Activity: Insufficiently Active Days of Exercise per Week: 3 days Minutes of Exercise per Session: 30 min Stress: Stress Concern Present Feeling of Stress : Rather much Social Connections: Socially Isolated Frequency of Communication with Friends and Family: More than three times a week Frequency of Social Gatherings with Friends and Family: Once a week Attends Caodaism Services: Never Active Member of Clubs or Organizations: No Attends Club or Organization Meetings: Never Marital Status: Never Housing Stability: Low Risk Unable to Pay for Housing in the Last Year: No Number of Places Lived in the Last Year: 1 Unstable Housing in the Last Year: No Allergy Information: I have reviewed the patient's allergies. Latex, Coconut oil, Prasterone (dhea), and Silk tape Home Medications: Outpatient Medications as of 04/17/2022 Medication Sig senna (SENOKOT) 8.6 mg tablet Take 4 times a day for chronic constipation . Vyvanse 70 mg capsule Take 1 (one) capsule (70 mg total) by mouth every morning . Review of Systems: Review of Systems Physical Examination: Vital Signs: BP 122/84 Pulse 71 Resp 14 Ht 5' 7 Wt 57.2 kg (126 lb) SpO2 99% BMI 19.73 kg/m Physical Exam Constitutional: Appearance: Normal appearance. HENT: Head: Normocephalic. Nose: Nose normal. Mouth/Throat: Mouth: Mucous membranes are moist. Eyes: Pupils: Pupils are equal, round, and reactive to light. Cardiovascular: Rate and Rhythm: Normal rate. Pulses: Normal pulses. Chest: Breasts: Right: No inverted nipple, mass or nipple discharge. Left: No mass or nipple discharge. Abdominal: General: There is no distension. Palpations: Abdomen is soft. Musculoskeletal: General: Normal range of motion. Cervical back: Normal range of motion. Lymphadenopathy: Upper Body: Right upper body: No axillary or pectoral adenopathy. Left upper body: No axillary or pectoral adenopathy. Skin: General: Skin is warm. Coloration: Skin is not jaundiced. Neurological: General: No focal deficit present. Mental Status: She is alert. Psychiatric: Mood and Affect: Mood normal. Thought Content: Thought content normal. Judgment: Judgment normal. Laboratory and Additional Data Reviewed: Laboratory 04/17/22 10:03 AM Imaging Bilateral breast ultrasound 04/03/2022 IMPRESSION: 1. Incidental probably benign 1 cm mass in the left breast 1 o'clock axis favoring a fibroepithelial lesion such as fibroadenoma in this age group. Recommend ultrasound follow-up in 6 months to ensure stability. 2. Unremarkable ultrasound of the right breast in the area of patient's concern. Consider continuedclinical follow-up for patient's symptoms. BIRADS - CATEGORY 3 Pathology-pending biopsy Assessment and Plan: 17 y.o. female with above history referred for incidental 1 cm benign-appearing mass seen on left breast ultrasound Long discussion with the patient about its benign appearing features on ultrasound. Would recommendsurveillance imaging at 6 months. However patient is very anxious because of her family history anddiscussion with her mother patient would like to confirm what this mass is. Discussed with her the risks of ultrasound-guided biopsy. I will order the biopsy and have the patient return to my office after discussion of final pathology. 1. Abnormal finding on imaging Ambulatory referral to General Surgery US Breast Biopsy Left 2. Breast lump in upper outer quadrant Ambulatory referral to General Surgery US Breast Biopsy Left 3. Family history of breast cancer Ambulatory referral to General Surgery Total time 30 minutes, greater than 50% spent [id number] with the patient obtaining history, performing exam explaining her imaging and coordinating care documented in this [id number] Physician Emergency department Note* Nathaniel Reyes MD - 01/04/2022 2:16 PM EDT EKG: Sinus rhythm at 67 beats per minute. Preston is normal. There is sinus arrhythmia. OK interval is 114 milliseconds. QRS duration is 96 milliseconds. There is no acute ST elevation on the tracing. No significant ectopy. No evidence of delta waves. QT interval appears to be within normal limits for rate. It is similar to previous tracing done yesterday, January 03, 2022 Nathaniel Reyes MD 01/04/22 [address] [facility] Work Phone: 1(401) 599-531611-03-2022 Emergency department Note* Nathaniel Reyes MD - 01/04/2022 2:16 PM EDT EKG: Sinus rhythm at 67 beats per minute. Preston is normal. There is sinus arrhythmia. OK interval is 114 milliseconds. QRS duration is 96 milliseconds. There is no acute ST elevation on the tracing. No significant ectopy. No evidence of delta waves. QT interval appears to be within normal limits for rate. It is similar to previous tracing done yesterday, January 03, 2022 Nathaniel Reyes MD 01/04/22 1417 * Tasneem Betancur RN - 01/04/2022 2:01 PM EDT Pt sent to ER, by Dr. Rodriguez's office, with c/o shakiness, headache, and intermittent tachycardia worse today. Pt denies chest pain, but does reports left-sided jaw pain. [facility]* Tasneem Betancur RN - 01/04/2022 2:01 PM EDT Pt sent to ER, by Dr. Rodriguez's office, with c/o shakiness, headache, and intermittent tachycardia worse today. Pt denies chest pain, but does reports left-sided jaw pain. [facility]11-02-2022 Emergency department Note* Jenae Arizmendi RN - 01/03/2022 3:43 PM EDT youth nutritional monitor placed on patient by cardiology. [facility]11-02-2022 Emergency department Note* Jenae Arizmendi RN - 01/03/2022 3:43 PM EDT youth nutritional monitor placed on patient by cardiology. * Nathaniel Reyes MD - 01/03/2022 1:33 PM EDT EKG: Sinus rhythm at 86 beats per minute. OK interval is 106 milliseconds. QRS durations 88 milliseconds. I do not see obvious delta waves. No acute ST elevation is seen. No significant ectopy. axis is slightly rightward. No old tracing for comparison. It looks like there was an EKG ordered in 2018 but it was never performed. Nathaniel Reyes MD 01/03/22 1336 * Kirstin Dexter RN - 01/03/2022 12:48 PM EDT Pt arrives from home c/o sweating more than normal, elevated HR, and feeling weak, reports hx of POTT disease [facility] Phys[facility] Emergency department Note* Nathaniel Reyes MD - 01/03/2022 1:33 PM EDT EKG: Sinus rhythm at 86 beats per minute. OK interval is 106 milliseconds. QRS durations 88 milliseconds. I do not see obvious delta waves. No acute ST elevation is seen. No significant ectopy. axis is slightly rightward. No old tracing for comparison. It looks like there was an EKG ordered in 2018 but it was never performed. Nathaniel Reyes MD 01/03/22 1336 [facility] Work Phone: 1(869) 291-307911-02-2022 Emergency department Note* Kirstin Dexter RN - 01/03/2022 12:48 PM EDT Pt arrives from home c/o sweating more than normal, elevated HR, and feeling weak, reports hx of POTT disease [facility]10-04-2022 History of Present illness Narrative* Natalie Smalls CNP - 12/05/2021 1:56 PM EDT DATE: 12/05/2021 CHIEF COMPLAINT: Chief Complaint Patient presents with recurrent kidney stones HISTORY OF PRESENT ILLNESS: Ethan Hernandez is a 16 y.o. female with history of renal stones in [facility] , has seen urology in the past here to establish care and stated that she has blood in the urine sometimes Initially seen by and referred by Milton Leos MD . Systemic:The patient denies any weight loss, malaise, fatigue, pain, or night sweats. Urinary: The patient reports normal FOS and urinary function. Patient denies urinary dysuria, frequency, urgency, nocturia, or incontinence. Bowel: No constipation, diarrhea, or fecal incontinence HISTORY: PMH Past Medical History: Diagnosis Date Anemia Anxiety Arrhythmia Chest pain Depression EDS (Yola-Danlos syndrome) Yola-Danlos disease Fatigue Fibromyalgia Fibromyalgia, primary Gastroparesis Major depressive disorder POTS (postural orthostatic tachycardia syndrome) Shortness of breath PSH Past Surgical History: Procedure Laterality Date ADENOIDECTOMY APPENDECTOMY APPENDECTOMY LAPAROSCOPIC 12/04/2017 ..................Dr. Jain ARHTROSCOPY KNEE WITH OR WITHOUT MENISECTOMY Right 10/14/2019 Procedure: Right knee tibial tubercle osteotomy with a medial soft tissue imbrication and lateral release; Surgeon: Mary Miguel MD; Location: Main OR; Service: Orthopedic COLONOSCOPY TONSILLECTOMY UPPER GASTROINTESTINAL ENDOSCOPY Social History Socioeconomic History Marital status: Single Tobacco Use Smoking status: Never Smokeless tobacco: Never Vaping Use Vaping Use: Never used Substance and Sexual Activity Alcohol use: No Drug use: No Social Determinants of Health Financial Resource Strain: Low Risk Difficulty of Paying Living Expenses: Not hard at all Food Insecurity: No Food Insecurity Worried About Running Out of Food in the Last Year: Never true Ran Out of Food in the Last Year: Never true Transportation Needs: No Transportation Needs Lack of Transportation (Medical): No Lack of Transportation (Non-Medical): No Physical Activity: Insufficiently Active Days of Exercise per Week: 4 days Minutes of Exercise per Session: 30 min Stress: Stress Concern Present Feeling of Stress : To some extent Social Connections: Socially Isolated Frequency of Communication with Friends and Family: More than three times a week Frequency of Social Gatherings with Friends and Family: Once a week Attends Caodaism Services: Never Active Member of Clubs or Organizations: No Attends Club or Organization Meetings: Never Marital Status: Never Housing Stability: Unknown Unable to Pay for Housing in the Last Year: No Unstable Housing in the Last Year: No FH Family History Problem Relation Age of Onset Stroke Mother Diabetes Maternal Grandmother Hyperlipidemia Maternal Grandmother Hypertension Maternal Grandmother Hyperlipidemia Maternal Grandfather Hypertension Maternal Grandfather Autism Brother ALLERGIES AND MEDICATIONS Allergies: Latex, Coconut oil, Prasterone (dhea), and Silk tape Current Outpatient Medications: lisdexamfetamine (VYVANSE) 30 MG capsule, Take 30 mg by mouth every morning Daily ., Disp: , Rfl: Senna Lax 8.6 mg tablet, Take 4 tablets by mouth every evening ., Disp: , Rfl: REVIEW OF SYSTEMS: CONSTITUTIONAL: No weight loss, malaise, or fatigue EYES: No changes in vision, no blurry vision EARS, NOSE, MOUTH, THROAT: No change in hearing, No difficulty swallowing. CARDIOVASCULAR: No chest pain or heart palpitations. RESPIRATORY: No difficulty breathing or wheezing. GI: No changes in bowel habit. No blood in his stool. : No dysuria, hematuria, or urinary tract infections. The rest as above in the HPI. MUSCULOSKELETAL: No joint pain or swelling. VASCULAR: No peripheral edema. No calf pain with exertion. NEURO: No changes in gait or sensation. SKIN: No rashes or lesions. PSYCHIATRIC: No depressive or suicidal thoughts PHYSICAL EXAM: CONSTITUTIONAL: VITAL SIGNS: Vitals: 12/05/21 1346 BP: (!) 122/90 Pulse: 69 SpO2: 98% GENERAL: Well appearing. No acute distress. EYES: PERRLA, EOMI EARS, NOSE, MOUTH, THROAT: mucous memebranes moist, trachea midline CARDIOVASCULAR: RRR, normal carotid pulse, no peripheral edema. ABDOMEN: Soft, nondistended, nontender. BACK: No CVA tenderness. : Deferred per patient MUSCULOSKELETAL: normal extremity ROM with no edema LYMPH: No cervical or supraclavicular lymphadenopathy NEURO: Normal gait, CN II-XII grossly intact PSYCHATRIC: A & O x3, mood and affect appropriate SKIN: No rashes, ulcers, or lesions visible DATA: IMAGING: LAB: POC: Urine dipstick shows positive for red blood cells trace ASSESSMENT / PLAN: Problem List Items Addressed This Visit None Visit Diagnoses Hematuria, unspecified type - Primary Relevant Orders POC Urinalysis Dipstick, Auto (Completed) Recurrent kidney stones Relevant Orders POC Urinalysis Dipstick, Auto (Completed) get ua She claims that she has gross hematuria off and on for a week at a time, possible UTI symptoms off and on . Thinks it happens around the time of her periods. saw urology in the past No gross hematuria at this time , she should come in when she sees the blood so we can get a straight cath specimen to see if it really is from the urine and not vaginal. and consider ct KSP last ct in 2019 showed tiny stones Natalie Smalls [facility] documented in this [id number] History of Present illness Narrative* Mary Miguel MD - 07/27/2021 3:53 PM EDT SUBJECTIVE Ethan comes in today for followup of her right knee as well as both hips. 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 We did a surgical intervention on her right patella 2 years ago with a lateral release tibial tubercle, Anne Marie osteotomy, and a vastus medialis advancement. At this time, the patient continues to have signs and symptoms of patellar instability in her opinion. She says both hips feel like they are unstable and feels like there is poppingin the hips. Never had a toyin dislocation of the hip, but she feels like there is popping. IMAGING X-rays, 2 views both hips, reveal normal-appearing bilateral hip joints with a normal-appearing center edge angle. PHYSICAL EXAM General: At this time, she is awake, alert, and oriented x3. Musculoskeletal: Right knee has full range of motion. Patella does have 2 incisions that are well healed. She has 2 quadrants of medial and lateral excursion with the knee at 30 degrees of flexion. Hips, full range of motion. Mild tenderness over the greater trochanters. She has no limitations to range of motion. Faintly positive HILARIO test. She has pain with adduction and internal rotation in both hips. IMPRESSION 1.Bilateral hip labral tears. 2.Yola-Danlos. 3.Patellofemoral instability, right knee. With the knee, the only thing we could proceed forward with would be a medial patellofemoral ligament stabilization with a medial patellofemoral ligament reconstruction. As far as the hips go, we have tried physical therapy. We are going to go ahead and get an MRI scan to see if there is any significant labral pathology that may need addressed with her instability. I will see her after the MRIs are performed. documented in this [id number] History of Present illness Narrative* Lauren Nuñez LPN - 02/22/2021 11:37 AM EST Peer to peer done with patients insurance today by this nurse. Insurance company wants xray's dedicated to that hip, 4 weeks of therapy and clinical follow up. They state at that time then it can be resubmitted. documented in this [id number] History of Present illness Narrative* Milton Leos MD - 02/07/2021 7:00 AM EST Ethan Hernandez comes in today with the following concerns: Chief Complaint Patient presents with Cough pt tested negative for COVID yesterday, s/s started Saturday Sore Throat testednegative for strep yesterday Ear Pain bilat ear pain since Saturday Pt states that she felt that her throat was swollen Saturday - Saturday, she had sore throat that wasworsening over the course of the day. Fever Saturday night. Headache, no congestion. Mild cough, mildly productive. She has a sore throat - she can hardly talk. Tylenol is not helpful. No rashes or diarrhea. Current Outpatient Medications Medication Sig Dispense Refill sennosides 8.6 MG tablet Take by mouth daily. 4 tablets daily predniSONE 20 MG tablet Take 1 tablet by mouth 2 times daily. 10 tablet 0 No current facility-administered medications for this visit. Social History Socioeconomic History Marital status: Single Spouse name: Not on file Number of children: Not on file Years of education: 7 Highest education level: Not on file Occupational History Not on file Tobacco Use Smoking status: Never Smoker Smokeless tobacco: Never Used Vaping Use Vaping Use: Never used Substance and Sexual Activity Alcohol use: No Drug use: No Sexual activity: Yes Partners: Male control/protection: Condom Other Topics Concern Service Not Asked Blood Transfusions Not Asked Caffeine Concern Not Asked Occupational Exposure Not Asked Hobby Hazards Not Asked Sleep Concern Not Asked Stress Concern Not Asked Weight Concern Not Asked Special Diet Not Asked Back Care Not Asked Exercise Not Asked Bike Helmet Not Asked Seat Belt Not Asked Domestic Violence No Social History Narrative Not on file Social Determinants of Health Financial Resource Strain: Not on file Food Insecurity: Not on file Transportation Needs: Not on file Physical Activity: Not on file Stress: Not on file Social Connections: Not on file Intimate Partner Violence: Not on file Housing Stability: Not on file Past Medical History: Diagnosis Date Aphthous ulcer of mouth 11/01/2020 Deliberate self-cutting 06/08/2019 Yola-Danlos syndrome Dx age 3 Encounter for routine child health examination without abnormal findings 10/01/2016 Fibromyalgia Hematochezia 11/01/2020 Hip pain, acute, unspecified laterality 12/02/2017 Hx of echocardiogram 11/30/[facility] 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 Added automatically from request for surgery [id number] Irregular periods 10/01/2016 Muscle tension headache 03/18/2017 Nausea and vomiting 11/01/2020 Non-cardiac chest pain 11/01/2020 Pharyngitis 11/01/2020 Post-concussion syndrome 06/21/2016 Viral gastroenteritis 05/20/2019 Past Surgical History: Procedure Laterality Date KNEE SURGERY Right 10/14/[address] [facility] OTHER SURGICAL 07/04/2018 gastric emptying with normal results [facility] APPENDECTOMY LAPAROSCOPIC 12/04/2017 [facility] TONSILLECTOMY ADENOIDECTOMY 01/2010 [facility]. Family History Problem Relation Age of Onset Stroke Mother Migraines Mother Other - Specify Sister depression, anxiety, bipolar disorder, ADHD Hypertension Maternal Grandmother Diabetes Maternal Grandmother Hypertension Maternal Grandfather No known problems Father Nurse Note: Review of Systems Constitutional: Positive for fever (last fever yesterday and was 101 did come down with OTC Tylenol). Negative for chills and fatigue. HENT: Positive for ear pain and sore throat. Respiratory: Positive for cough. Negative for chest tightness and shortness of breath. Cardiovascular: Negative for chest pain, palpitations and leg swelling. Gastrointestinal: Negative for abdominal pain, blood in stool, constipation and diarrhea. Neurological: Positive for headaches. Nursing Assessment: Physical Exam BP 110/60 (BP Location: Left arm, BP Position: Sitting) Pulse 93 Temp 98.4 F (36.9 C) (Temporal) Resp 18 Ht 1.72 m (5' 7.72) Wt 58.6 kg (129 lb 3.2 oz) SpO2 99% BMI 19.81 kg/m Smoking Status Never Smoker Physical Exam Physical Exam Vitals and nursing note reviewed. Constitutional: General: She is not in acute distress. Appearance: She is ill-appearing. She is not diaphoretic. HENT: Head: Normocephalic and atraumatic. Comments: Tonsils surgically absent Right Ear: Ear canal and external ear normal. No drainage or swelling. Left Ear: Ear canal and external ear normal. No drainage or swelling. Mouth/Throat: Mouth: Mucous membranes are moist. No oral lesions. Pharynx: Posterior oropharyngeal erythema present. No pharyngeal swelling or oropharyngeal exudate. Tonsils: 0 on the right. 0 on the left. Eyes: Extraocular Movements: Right eye: Normal extraocular motion. Left eye: Normal extraocular motion. Conjunctiva/sclera: Conjunctivae normal. Pupils: Pupils are equal, round, and reactive to light. Cardiovascular: Rate and Rhythm: Normal rate and regular rhythm. Heart sounds: Normal heart sounds. No murmur heard. No friction rub. No gallop. Pulmonary: Effort: Pulmonary effort is normal. No respiratory distress. Breath sounds: Normal breath sounds. No wheezing or rales. Abdominal: General: Bowel sounds are normal. There is no distension. Palpations: Abdomen is soft. Tenderness: There is no abdominal tenderness. Musculoskeletal: General: Normal range of motion. Cervical back: Normal range of motion and neck supple. Lymphadenopathy: Cervical: Cervical adenopathy present. Skin: General: Skin is warm and dry. Findings: No erythema or rash. Neurological: General: No focal deficit present. Mental Status: She is alert and oriented to person, place, and time. Cranial Nerves: No cranial nerve deficit. Psychiatric: Mood and Affect: Mood normal. Behavior: Behavior normal. Judgment: Judgment normal. ASSESSMENT & PLAN: ICD-10-CM 1. Sore throat J02.9 POCT INFLUENZA, A B MONONUCLEOSIS SCREEN predniSONE 20 MG tablet 2. Viral syndrome B34.9 Pt is clinically stable, plan for Rx for prednisone followed by mono screen at hospital. We discussed that she has a likely viral illness. * Siena Berry LPN - 02/07/2021 7:00 AM EST Nurse Note: Review of Systems Constitutional: Positive for fever (last fever yesterday and was 101 did come down with OTC Tylenol). Negative for chills and fatigue. HENT: Positive for ear pain and sore throat. Respiratory: Positive for cough. Negative for chest tightness and shortness of breath. Cardiovascular: Negative for chest pain, palpitations and leg swelling. Gastrointestinal: Negative for abdominal pain, blood in stool, constipation and diarrhea. Neurological: Positive for headaches. Nursing Assessment: Physical Exam documented in this [facility]10-28-2021 History of Present illness Narrative* Mary Miguel MD - 12/29/2020 5:25 PM EDT Ethan comes in today for a followup of her right knee as well as her right hip. She says the patella she still feels like there is hypermobility. If you will recall, she suffers with Leopold-Danlos syndrome and she also has had right hip pain and a feeling of the hip giving out. Her mom is noting that she is actually talking about potential disability. PHYSICAL EXAM Today she is awake, alert and oriented x3. She ambulates without assistive device. She is with her mom. Right lower extremity neurologically intact, 2+ pulses. She has hypermobility of the right kneepatella. Wounds are healed. No signs of infection. Right hip full range of motion. She has pain with hip depression, pain with Hilario testing. She has pain at 45 degrees of hip internal rotation and external rotation referred to the groin and inguinal region. IMPRESSION 1.Right knee patellar instability. 2.Right hip instability. PLAN At this time, we are going to proceed forward with an MRI of the right hip to look for labral pathology. We also at this point in time, have talked about potential MPFL reconstruction of the right patella. I will see her back in 4 weeks after the MRI. documented in this [id number] History of Present illness Narrative* Mary Miguel MD - 09/30/2020 6:24 PM EDT Dictation on: 09/30/2020 6:25 PM by: MARY MIGUEL [[id number]] documented in this [id number] History of Present illness Narrative* Jenni Alegre LPN - 08/08/2020 11:00 AM EDT Pt states burning and pain with urination, lower back pain for 2 days. documented in this [facility]06-07-2021 Miscellaneous Notes* Addendum Note - Milton Leos MD - 08/08/2020 11:00 AM EDT Addended by: MILTON LEOS on: 08/08/2020 11:56 AM Modules accepted: Orders * Addendum Note - Jenni Alegre LPN - 08/08/2020 11:00 AM EDT Addended by: JENNI ALEGRE on: 08/08/2020 11:35 AM Modules accepted: Orders documented in this [facility]04-16-2021 Emergency department Note* Pedro Siddiqui Jr., MD - 06/17/2020 3:24 PM EDT ED PROVIDER NOTE [facility] NAME: Ethan Hernandez AGE: 15 y.o. : 2005 VISIT DATE: 06/17/2020 CSN: [id number] PCP: Milton Leos MD Chief Complaint Patient presents with Abdominal Pain no regular BM in over a month. Have tried several ways, enemas and laxitives with no results. Patient states she has not been able to poop for almost a month. She has been in contact with hergastroenterology team in [place] who started her on a cleanout and she had a very small amountof bowel production on Saturday, June 15, 2020. She continues today with abdominal pain and cramping and no bowel movement but she is passing gas and not vomiting. She has been urinating normally. Past Medical History: Diagnosis Date Anemia Anxiety Arrhythmia Chest pain Depression EDS (Yola-Danlos syndrome) Yola-Danlos disease Fatigue Fibromyalgia Fibromyalgia, primary Gastroparesis Major depressive disorder POTS (postural orthostatic tachycardia syndrome) Shortness of breath Past Surgical History: Procedure Laterality Date ADENOIDECTOMY APPENDECTOMY APPENDECTOMY LAPAROSCOPIC 12/04/2017 ..................Dr. Jain ARHTROSCOPY KNEE WITH OR WITHOUT MENISECTOMY Right 10/14/2019 Procedure: Right knee tibial tubercle osteotomy with a medial soft tissue imbrication and lateral release; Surgeon: Mary Miguel MD; Location: Main OR; Service: Orthopedic COLONOSCOPY TONSILLECTOMY UPPER GASTROINTESTINAL ENDOSCOPY Family History Problem Relation Age of Onset Stroke Mother Diabetes Maternal Grandmother Hyperlipidemia Maternal Grandmother Hypertension Maternal Grandmother Hyperlipidemia Maternal Grandfather Hypertension Maternal Grandfather Autism Brother Social History Socioeconomic History Marital status: Single Spouse name: Not on file Number of children: Not on file Years of education: Not on file Highest education level: Not on file Occupational History Not on file Social Needs Financial resource strain: Not on file Food insecurity Worry: Not on file Inability: Not on file Transportation needs Medical: Not on file Non-medical: Not on file Tobacco Use Smoking status: Never Smoker Smokeless tobacco: Never Used Substance and Sexual Activity Alcohol use: No Drug use: No Sexual activity: Not on file Lifestyle Physical activity Days per week: Not on file Minutes per session: Not on file Stress: Not on file Relationships Social connections Talks on phone: Not on file Gets together: Not on file Attends hindu service: Not on file Active member of club or organization: Not on file Attends meetings of clubs or organizations: Not on file Relationship status: Not on file Other Topics Concern Not on file Social History Narrative Not on file Previous Medications Medication Sig doxycycline hyclate (VIBRAMYCIN) 100 MG capsule Take 100 mg by mouth daily . sulfacetamide sodium-sulfur 9-4.5 % Clsr Allergies Allergen Reactions Latex Dermatitis Coconut Oil Rash Silk Tape Rash Review of Systems Gastrointestinal: Positive for abdominal pain and constipation. All other systems reviewed and are negative. Patient Vitals for the past 24 hrs: BP Temp Pulse Resp SpO2 Height Weight 06/17/20 1521 120/76 97.8 F (36.6 C) (!) 48 18 100 % 5' 8 62.1 kg (137 lb) Physical Exam Vitals signs and nursing note reviewed. Constitutional: Appearance: She is well-developed. HENT: Head: Normocephalic and atraumatic. Mouth/Throat: Mouth: Mucous membranes are moist. Eyes: Extraocular Movements: Extraocular movements intact. Cardiovascular: Rate and Rhythm: Normal rate. Pulmonary: Effort: Pulmonary effort is normal. Abdominal: General: Abdomen is flat. Palpations: Abdomen is soft. Tenderness: There is no abdominal tenderness. Skin: General: Skin is warm and dry. Neurological: General: No focal deficit present. Mental Status: She is alert and oriented to person, place, and time. Psychiatric: Mood and Affect: Mood normal. Behavior: Behavior normal. Laboratory & Radiographic Imaging (if done): Results for orders placed or performed during the hospital encounter of 06/17/20 Urinalysis Result Value Ref Range Color, Urine Yellow Colorless, Yellow Clarity, Urine Clear Clear Specific [place] 1.020 1.005 - 1.025 pH, Urine 7.5 (H) 5.0 - 7.0 Protein, Urine Negative Negative mg/dL Glucose, Urine Negative Negative mg/dL Ketones, Urine Negative Negative mg/dL Bilirubin, Urine Negative Negative Urobilinogen, Urine <2.0 <2.0 mg/dL Blood, Urine Small (A) Negative Nitrite, Urine Negative Negative Leukocyte Esterase, Urine Negative Negative WBCs, Urine 2 0 - 5 /hpf Bacteria, Urine Rare (A) None Seen /hpf Squamous Epithelial 3 0 - 4 /hpf Urine Result Value Ref Range Beta-hCG, Ur, Qual Negative Negative BMP Result Value Ref Range Sodium 138 135 - 145 mmol/L Potassium 3.9 3.5 - 5.1 mmol/L Chloride 108 98 - 108 mmol/L Bicarbonate 27 21 - 32 mmol/L Anion Gap 7 (L) 10 - 20 mmol/L Glucose 87 65 - 99 mg/dL BUN 5 (L) 8 - 25 mg/dL Creatinine 0.83 0.50 - 1.00 mg/dL BUN/Creatinine Ratio 6.0 (L) 10.0 - 20.0 Calcium 8.7 8.4 - 10.2 mg/dL Hepatic Function Panel (LFT) Result Value Ref Range Total Protein 6.9 6.0 - 8.0 g/dL Albumin 3.7 3.2 - 4.5 g/dL Total Bilirubin 0.4 0.0 - 1.3 mg/dL Bilirubin, Direct 0.2 0.0 - 0.4 mg/dL Alkaline Phosphatase 155 (H) 40 - 140 U/L AST 14 0 - 45 U/L ALT 17 14 - 65 U/L Lipase Result Value Ref Range Lipase 66 (L) 73 - 393 U/L CBC Auto Differential Result Value Ref Range WBC 4.51 4.50 - 11.00 K/mcL RBC 4.29 4.10 - 5.10 M/mcL Hemoglobin 12.8 12.0 - 16.0 g/dL Hematocrit 37.7 36.0 - 46.0 % MCV 87.9 78.0 - 102.0 fL MCH 29.8 25.0 - 35.0 pg MCHC 34.0 31.0 - 37.0 g/dL Platelets 265 150 - 400 K/mcL RDW - CV 13.2 11.6 - 14.8 % MPV 9.5 9.4 - 12.4 fL Neutrophils 43.8 % Lymphocytes 45.9 % Monocytes 8.0 % Eosinophils 1.6 % Basophils 0.7 % IG Percent 0.00 % Neutrophils Abs 1.98 1.70 - 7.00 K/mcL Lymphocytes Abs 2.07 0.90 - 4.00 K/mcL Monocytes Abs 0.36 0.30 - 0.90 K/mcL Eosinophils Abs 0.07 0.00 - 0.50 K/mcL Basophils Abs 0.03 0.00 - 0.30 K/mcL IG Absolute 0.00 0.00 - 0.30 K/mcL CT Abdomen Pelvis Without Contrast Non-public Result No acute findings to account for patient's symptoms. Mild diffuse colonic stool without bowel obstruction. Bilateral nephrolithiasis without obstructive uropathy. Prior appendectomy. Workstation ID: [id number] Procedures MDM Number of Diagnoses or Management Options Diagnosis management comments: I reviewed charting of the telephone conversations with gastroenterology over the past 2 days. 1654-discussed with the patient and her mom plan for follow-up with gastroenterology at [place].In the meantime continue clear oral fluid hydration and any other recommendations per gastroenterology. Amount and/or Complexity of Data Reviewed Decide to obtain previous medical records or to obtain history from someone other than the patient:yes Review and summarize past medical records: yes Clinical Impression: 1. Generalized abdominal pain 2. Abdominal pain in female patient ED Disposition ED Disposition Condition Comment Discharge Stable Ethan Hernandez discharged to home/self care in stable condition. Follow-up Information 1. Keaton Correa MD. Specialty: Pediatric Gastroenterology Why: ELEAZAR to schedule appointment in 1-3 days [id number] [facility] [id number] Contact information for after-discharge care Follow-up information has not been specified. Pedro Siddiqui Jr., MD 06/17/20 [id number] * Alexis Manzanares, GASTON - 06/17/2020 3:18 PM EDT Pt has Yola Danlos sx and is usually seen at [facility]. Pt and parent have been in contact with them and done what they have instructed with no results. [facility] Diagnosis Generalized abdominal pain- Primary Abdominal pain, generalized Abdominal pain in female [facility] Urinary [facility]- Primary [facility] S/P right knee arthroscopy- Primary Yola-Danlos disease Yola-Danlos syndrome [facility] Diagnosis Tear of right acetabular labrum, initial encounter- Primary [facility]* Diagnosis Instability of right patellofemoral joint- Primary Yola-Danlos disease Yola-Danlos syndrome [facility]* Diagnosis Sore throat- Primary Acute pharyngitis Viral syndrome Unspecified viral infection, in conditions classified elsewhere and of unspecified site [facility] Tear of right acetabular labrum, initial encounter- Primary Instability of right patellofemoral joint [facility]* Diagnosis Tear of right acetabular labrum, initial encounter- Primary Tear of left acetabular labrum, subsequent encounter [facility]* Diagnosis Hematuria, unspecified type- Primary Recurrent kidney stones documented in this encounter [facility] note* Diagnosis Abnormal EKG- Primary Nonspecific abnormal electrocardiogram (ECG) (EKG) Palpitations documented in this encounter [facility] note* Diagnosis Shakiness- Primary Abnormal involuntary movements documented in this encounter [facility] note* Diagnosis Abnormal finding on imaging- Primary Other nonspecific (abnormal) findings on radiological and other examinations of body structure Breast lump in upper outer quadrant Lump or mass in breast Family history of breast cancer Family history of malignant neoplasm of breast documented in this encounter [facility] note* Diagnosis Chronic constipation- Primary Unspecified constipation Bloating Flatulence, eructation, and gas pain Nausea Nausea alone Abdominal pain, unspecified abdominal location Early satiety documented in this encounter [facility] note* Diagnosis Breast fibroadenoma, 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 [facility] Diagnosis Contusion of right knee, initial encounter- Primary documented in this encounter [facility] note* Diagnosis Right knee pain, unspecified chronicity- Primary [facility] Diagnosis Right knee pain, unspecified chronicity [facility]* Diagnosis Right knee pain, unspecified chronicity [facility]* Diagnosis Patellar instability of right knee- Primary Other specified disorders of lower leg joint [facility]* Diagnosis Right ureteral stone- Primary Right ureteral stone- Primary Right ureteral stone [facility] Diagnosis Right ureteral stone [N20.1 (ICD-10-CM)]- Primary documented in this encounter [facility] note* Diagnosis Patellofemoral instability, right- Primary [facility] Diagnosis S/P knee surgery- Primary Other postprocedural status S/P knee surgery Other postprocedural status [facility]* Diagnosis S/P knee surgery Other postprocedural status [facility] Diagnosis Tear of MCL (medial collateral ligament) of knee, right, initial encounter- Primary S/P reconstruction of ligament of knee Other postprocedural status 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 documented in this encounter [facility] Tear of MCL (medial collateral ligament) of knee, right, initial encounter- Primary 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 [facility] Diagnosis Tear of MCL (medial collateral ligament) of knee, right, initial encounter- Primary 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 [facility] Diagnosis Tear of MCL (medial collateral ligament) of knee, right, initial encounter- Primary 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 [facility] Diagnosis Tear of MCL (medial collateral ligament) of knee, right, initial encounter- Primary 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 [facility] Diagnosis Tear of MCL (medial collateral ligament) of knee, right, initial encounter- Primary 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 [facility]* Diagnosis 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breast, left- Primary 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breast, left [facility] 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breast, left [facility] Diagnosis Tear of MCL (medial collateral ligament) of knee, right, initial encounter- Primary 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 [facility] Diagnosis Tear of MCL (medial collateral ligament) of knee, right, initial encounter- Primary 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 [facility]* Diagnosis Tear of MCL (medial collateral ligament) of knee, right, initial encounter- Primary 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 [facility] S/P knee surgery- Primary Other postprocedural status Patellar instability of right knee Other specified disorders of lower leg joint [facility] Diagnosis Tear of MCL (medial collateral ligament) of knee, right, initial encounter- Primary 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 [facility] Diagnosis Tear of MCL (medial collateral ligament) of knee, right, initial encounter- Primary 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 [facility]* Diagnosis Tear of MCL (medial collateral ligament) of knee, right, initial encounter- Primary 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 [facility] Diagnosis Tear of MCL (medial collateral ligament) of knee, right, initial encounter- Primary 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 [facility] S/P knee surgery- Primary Other postprocedural status [facility] Diagnosis Tear of MCL (medial collateral ligament) of knee, right, initial encounter- Primary 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 [facility] Diagnosis Cyst of right ovary- Primary Other and unspecified ovarian cyst Dysmenorrhea [facility] Diagnosis Pain pelvic- Primary Unspecified symptom associated with female genital organs Preop testing Preoperative examination, unspecified Post-op pain Other acute postoperative pain [facility] Post-op pain- Primary Other acute postoperative pain [facility] Diagnosis Tick bite of scalp, initial encounter- Primary Menstrual cramps Dysmenorrhea [facility] Diagnosis Chest wall pain- Primary Painful respiration [facility] Diagnosis Influenza- Primary Influenza with other respiratory manifestations Cough, unspecified type [facility] Diagnosis Fatigue, unspecified type- Primary Positive urine test Viral URI Acute upper respiratory infections of unspecified site [facility] Diagnosis 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 Encounter for screening for risk of pre-term labor 19 weeks gestation of state, incidental [facility] Diagnosis POTS (postural orthostatic tachycardia syndrome)- Primary Tachycardia, unspecified Yola-Danlos syndrome type III Yola-Danlos syndrome [facility] Diagnosis Yola-Danlos syndrome type III Yola-Danlos syndrome [facility] Diagnosis POTS (postural orthostatic tachycardia syndrome)- Primary Tachycardia, unspecified [facility] Diagnosis Encounter for ultrasound to assess interval growth of fetus- Primary POTS (postural orthostatic tachycardia syndrome) Tachycardia, unspecified Yola-Danlos syndrome type III Yola-Danlos syndrome 27 weeks gestation of state, incidental [facility] Diagnosis Obstipation- Primary Unspecified constipation [facility] Diagnosis Onset Date Resolution Status Admit Date Bipolar 2 disorder acute 2024 12:57pm Yola-Danlos syndrome type III acut e November 19, 2024 12:57pm Fibromyalgia acute November 192024 12:57pm Gastroparesis acute November 022024 12:57pm GERD (gastroesophageal reflu x disease) acute November 19, 2024 12:57pm Normal echocardiogram acute Nov 12:57pm Personal history of kidney stones acute November 19, 2024 12:57pm POTS (postural orthostatic tachycardia syndrome) acute November 19, 2024 12:57pm acute November 12:57pm Supervision of high-risk acute November 19, 2024 12:57pm UTI in acute 2024 12:57pm [facility] Work Phone: Hospital Discharge instructions* Attachments The following attachments cannot be sent through Care Everywhere. * Constipation: Teen ([facility]) [facility]* Attachments The following attachments cannot be sent through Care Everywhere. * EKG ([facility]) * Palpitations ([facility]) [facility] Attachments The following attachments cannot be sent through Care Everywhere. * Contusion ([facility]) [facility]* Attachments The following attachments cannot be sent through Care Everywhere. * Ovarian Cyst: Functional ([facility]) * Dysmenorrhea ([facility]) [facility]* Attachments The following attachments cannot be sent through Care Everywhere. * Pain Post-Surgery: Acute ([facility]) documented in this [facility] Discharge instructions* Attachments The following attachments cannot be sent through Care Everywhere. * : Weeks 18 to 22 ([facility]) [facility] Attachments The following attachments cannot be sent through Care Everywhere. * Influenza ([facility]) [facility] Attachments The following attachments cannot be sent through Care Everywhere. * Fatigue ([facility]) * : Over the Counter Medicines During ([facility]) ([facility]) [facility] this [facility] Author Maribell [facility] Note Date/Time November 19, 2024 1:35pm [facility] [address] [place] [address], [address] [place] [address] OFFICE VISIT Date of Service: 11/19/24 MR#: [id number] Acct: [id number] Name: ETHAN HIGH Rep #: [id number] : 2005 Provider: Dr. Tamara Yang DO Age/Sex: 19/F [place] [facility] [place] Status: Signed Intake Vital Signs 11/19/24 13:02 Height 5 ft 8.5 in Weight: 176 lb 5 oz BMI 26.4 BP 120/72 Intake Visit Reasons: 30 wk OB DENIS/SM Chief Complaint: 30 Week OB/DENIS Tower Hand Required: No Is patient in pain?: No Allergies coconut Allergy (Intermediate, Verified 11/19/24 13:01) Hives Latex, Natural Rubber Allergy (Intermediate, Verified 11/19/24 13:01) Rash Medications ?Medication ?Instructions ?Recorded ?Confirmed ?Type PNV 153-FA 400 mcg-om3 35 mg-dha tab PO 11/12/2411/12 History 25 mg-epa 5 mg-fish oil chew tablet famotidine 40 mg tablet (Pepcid) 40 mg PO BID 11/12/24 11/12/24 History Last Menstrual Period: 04/21/24 Zika: Zika virus screening: Negative : No PFSH PFSH Medical History Heart murmur Depression Post concussion syndrome Irregular periods (10/01/16) Hematochezia (11/01/20) Deliberate self-cutting (06/08/19) Aphthous ulcer of mouth (11/01/20) Anxiety Anemia Nephrolithiasis Surgical History Hx of laparoscopy History of esophagogastroduodenoscopy (EGD) (~2018) Hx of colonoscopy (~2018) H/O lithotripsy (~2022) S/P breast biopsy, left (04/25/22) H/O right knee surgery (08/06/22) Hx of appendectomy History of tonsillectomy and adenoidectomy (12/04/17) Family History Mother CVA (cerebral vascular accident), Onset Age: 30 Hypertension Maternal Grandmother Diabetes Non-alcoholic micronodular cirrhosis of liver Splenic artery aneurysm Arthritis Maternal Grandfather High cholesterol Hypertension Sister PCOS (polycystic ovarian syndrome) half sister Bipolar 1 disorder half sister Borderline personality disorder Half sister Inappropriate sinus tachycardia half sister Brother Autism half brother Epilepsy half brother Uncle Cancer, Onset Age: 35 skin Social History adopted: No household members: spouse current occupational status: unemployed and student 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 current occupational exposures/hazards: No pets and animals: Yes pets and animals: dog(s) history of recent travel: Yes ( -September) out of state: Yes out of country: No sexually active: Yes Smoking Status: Never smoker alcohol intake: current details: not while substance use type: does not use well-balanced diet: daily or most days caffeine: Yes Type: coffee Number of servings: 1 eating out: rarely or never during the past year weight has: increased > 10 lbs what type of physical activity do you participate in: walking frequency: 5-6 times per week duration: 30-45 minutes/day magdiel/adventism: None seatbelt use: always do you feel safe at home: Yes additional social history: Millie Castano History 1 Elective abortions Hx Para 0 Spontaneous abortions Hx # Term Pregnancies Ectopic pregnancies Hx # Pregnancies Multiple births # of living children HPI 30 wk OB DENIS/SM Details: ETHAN SINGH is a 19 year old who presents for routine OB visit. OB Visit [facility] Calculator Estimated Delivery Date Method Current WG Current Estimate 01/26/25 LMP (Uncertain) 30w 2d Comments: HIV: Urine Culture: Sequential Screen: NIPT Screen: Initial Weight: Not Recorded Date -?-?-?-?-?-?-?-?-?-?-?-?- EGA Weight BP Urine Prot -?-?-?-?-?-?-?-?-?-?-?-?- Glucose FHR FuHt Pres Dilation -?-?-?-?-?-?-?-?-?-?-?-?- Effaced St Visit Note 11/19/24 -?-?-?-?-?-?-?-?-?-?-?-?- 30w 2d 176 lb 5 oz 120/72 Nega tive -?-?-?-?-?-?-?-?-?-?-?-?- Negative 146 29 -?-?-?-?-?-?-?-?-?-?-?-?- J[facility]- new DENIS from [facility]. was not happy with care there. Needs follow up growth with [facility]fm for EDS. had low risk nipt. normal glucola. ACOG First Trimester First Trimester: Desire for , Alcohol, Tobacco Cessation, Illicit/Recreational Drug/Substance Use, Intimate Partner Violence, Barriers to care, Unstable Housing, Communication Barriers, Environmental/Work Hazards, Anticipated Course of Care, Nurtrition and weight gain, Toxoplasmosis Precations, Use of Any medications, Sexual activity, Exercise, Dental Care, Sauna/Hot tub use, Seat Belt use, Childbirth classes/Hospital facilities, Travel, Indications for Ultrasound and Screening for Aneuploidy; Discussed Second Trimester Second Trimester: Signs and Symptoms of Labor, Selecting a care provider, Reproductive Life Planning & Contreception, Care Planning, Depression/Anxiety and Intimate Partner Violence; Discussed Tobacco Cessation Third Trimester Third Trimester: Pain Management Plans, Labor support person(s), Immediate Larc, Movement Monitoring, Signs and Symptoms of Preeclampsia and Education ROS Const Denies fever(s) GI Reports as per HPI and Denies abdominal pain Reports as per HPI, Denies abnormal vaginal bleeding, Denies dysuria and Denies vaginal discharge Exam Const General: healthy appearing, comfortable and no acute distress GI Inspection: normal to inspection Palpation: soft and nontender Results POC Urinalysis 2 Dip (Clinic) Office Urine Glucose Negative Last Edit by Mandy Lazar on 11/19/24 13 :10 Office Urine Protein Negative Last Edit by Mandy Lazar on 11/19/24 13 :10 Coding Level of Care Code Off vis,est,level 3 Diagnoses Supervision of high-risk O09.90 Z34.90 Personal history of kidney stones Z87.442 GERD (gastroesophageal reflux disease) K21.9 Fibromyalgia M79.7 Bipolar 2 disorder F31.81 UTI in O23.40 Normal echocardiogram Gastroparesis K31.84 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 POTS (postural orthostatic tachycardia syndrome) G90.A Assessment and Plan Assessment and Plan (1) Supervision of high-risk : Status: Acute Comment: , [facility] 01/26/26, Sahil (2) : Status: Acute Comment: NIPT low risk, gender male-pt unsure if had carrier (3) Personal history of kidney stones: Status: Acute Comment: 3 different times (4) GERD (gastroesophageal reflux disease): Status: Acute (5) Fibromyalgia: Status: Acute (6) Bipolar 2 disorder: Status: Acute (7) UTI in : Status: Acute (8) Normal echocardiogram: Status: Acute Comment: EF 60-65% 09/29/24 [facility] (9) Gastroparesis: Status: Acute Comment: stool softeners (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 Orders: Orders POC Urinalysis 2 Dip (Clinic) Today Culture, Urine Today O09.90 - Supervision of high risk , unspecified, unspecified trimester 11/19/24 1335 <Electronically signed by Maribell Owen DO> Date _ Maribell Yang DO Cosigner Signature: Date (if applicable) CC: ~ [facility] Work Phone: Progress note Author Lenora Vidal [facility] Note Date/Time December 07, 2024 8: 46am [facility] [place] [facility] [address], [address] [place] [address] OFFICE VISIT Date of Service: 12/07/24 MR#: [id number] Acct: [id number] Name: ETHAN HIGH Rep #: [id number] : 2005 Provider: DASIA Vidal Age/Sex: 19/F Location: [facility] [place] Status: Signed Intake Vital Signs 11/19/24 13:02 12/07/24 08:17 Height 5 ft 8.5 in 5 ft 8.5 in Weight: 183 lb 5 oz BMI 27.4 BP 122/81 H Intake Visit Reasons: 32 WK 6D OB Tower Hand Required: No Is patient in pain?: No Allergies coconut Allergy (Intermediate, Verified 12/07/24 08:21) Hives Latex, Natural Rubber Allergy (Intermediate, Verified 12/07/24 08:21) Rash Medications ?Medication ?Instructions ?Recorded ?Confirmed ?Type PNV 153-FA 400 mcg-om3 35 mg-dha tab PO 11/12/2412/07 History 25 mg-epa 5 mg-fish oil chew tablet famotidine 40 mg tablet (Pepcid) 40 mg PO BID 11/12/24 12/07/24 History Last Menstrual Period: 04/21/24 Zika: Zika virus screening: Negative : Yes PFSH PFSH Medical History Heart murmur Depression Post concussion syndrome Irregular periods (10/01/16) Hematochezia (11/01/20) Deliberate self-cutting (06/08/19) Aphthous ulcer of mouth (11/01/20) Anxiety Anemia Nephrolithiasis Surgical History Hx of laparoscopy History of esophagogastroduodenoscopy (EGD) (~2018) Hx of colonoscopy (~2018) H/O lithotripsy (~2022) S/P breast biopsy, left (04/25/22) H/O right knee surgery (08/06/22) Hx of appendectomy History of tonsillectomy and adenoidectomy (12/04/17) Family History Mother CVA (cerebral vascular accident), Onset Age: 30 Hypertension Maternal Grandmother Diabetes Non-alcoholic micronodular cirrhosis of liver Splenic artery aneurysm Arthritis Maternal Grandfather High cholesterol Hypertension Sister PCOS (polycystic ovarian syndrome) half sister Bipolar 1 disorder half sister Borderline personality disorder Half sister Inappropriate sinus tachycardia half sister Brother Autism half brother Epilepsy half brother Uncle Cancer, Onset Age: 35 skin Social History adopted: No household members: spouse current occupational status: unemployed and student 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 current occupational exposures/hazards: No pets and animals: Yes pets and animals: dog(s) history of recent travel: Yes ( -September) out of state: Yes out of country: No sexually active: Yes Smoking Status: Never smoker alcohol intake: current details: not while substance use type: does not use well-balanced diet: daily or most days caffeine: Yes Type: coffee Number of servings: 1 eating out: rarely or never during the past year weight has: increased > 10 lbs what type of physical activity do you participate in: walking frequency: 5-6 times per week duration: 30-45 minutes/day magdiel/adventism: None seatbelt use: always do you feel safe at home: Yes additional social history: Millie Castano History 1 Elective abortions Hx Para 0 Spontaneous abortions Hx # Term Pregnancies Ectopic pregnancies Hx # Pregnancies Multiple births # of living children HPI 32 WK 6D OB Details: ETHAN SINGH is a 19 year old who presents for routine OB visit. OB Visit [facility] Calculator Estimated Delivery Date Method Current WG Current Estimate 01/26/25 LMP (Uncertain) 32w 6d Expected Delivery Route/Plan Labor Preferences- CB/BF classes: encouraged labor support person: Sahil labor intervention preferences: [] pain management options preferred: wants limited intervention cut cord/dad catch: cord : yes PP control planned: [] discussed possible routes of delivery and associated risks: [] special requests: [] Specific Issue/Plans Covid status: [] Flu vaccine: [] Tdap vaccine: received in [place] Rhogam: NA LARC form signed: yes Problem list reviewed and updated with the most current plan of care details and appropriate orders placed. Relevant counseling for the gestational age provided. Continue routine care and follow up unless otherwise noted in visit notes/problem list details Initial Weight: Not Recorded Date -?-?-?-?-?-?-?-?-?-?-?-?- EGA Weight BP Urine Prot -?--?-?-?-?-?-?-?-?-?-?-?- Glucose FHR FuHt Pres Dilation -?-?-?-?-?-?-?--?-?-?-?-?- Effaced St Visit Note 11/19/24 -?-?-?-?-?-?-?-?-?-?-?-?- 30w 2d 176 lb 5 oz 120/72 Nega tive -?-?-?-?-?-?-?-?-?-?-?-?- Negative 146 29 -?-?-?-?-?-?-?-?-?-?-?-?- JV- new DENIS from [facility]. was not happy with care there. Needs follow up growth with [facility]fm for EDS. had low risk nipt. normal glucola. 12/07/24 -?-?-?-?-?-?-?-?-?-?-?-?- 32w 6d 183 lb 5 oz 122/81 Nega tive -?-?-?-?-?-?-?-?-?-?-?-?- Negative 136 31 -?-?-?-?-?-?-?-?-?-?-?-?- MH-No VB. Jose F Uribe M. States headache and vision changes entire but had previously r/t POTS. Pre E labs. Larc ACOG First Trimester First Trimester: Desire for , Alcohol, Tobacco Cessation, Illicit/Recreational Drug/Substance Use, Intimate Partner Violence, Barriers to care, Unstable Housing, Communication Barriers, Environmental/Work Hazards, Anticipated Course of Care, Toxoplasmosis Precations, Use of Any medications, Sexual activity, Exercise, Dental Care, Sauna/Hot tub use, Seat Belt use, Childbirth classes/Hospital facilities, , Travel, Indications for Ultrasound and Screening for Aneuploidy Second Trimester Second Trimester: Signs and Symptoms of Labor, Selecting a care provider, Reproductive Life Planning & Contreception, Care Planning, Depression/Anxiety and Intimate Partner Violence; Discussed Tobacco Cessation Third Trimester Third Trimester: Pain Management Plans, Labor support person(s), Immediate Larc, Circumcision preference Yes Yes, Movement Monitoring, Signs and Symptoms of Preeclampsia, Feeding Yes , [place] Education and Family Medical Leave or Disability Forms ROS Const Reports system reviewed and no additional complaints, except as documented GI Denies abdominal pain, Denies nausea and Denies vomiting Exam Const General: cooperative Nutritional Appearance: well nourished GI Palpation: soft, nontender and other (gravid) Results POC Urinalysis 2 Dip (Clinic) Office Urine Glucose Negative Last Edit by Mandy Lazar on 12/07/24 08 :38 Office Urine Protein Negative Last Edit by Mandy Lazar on 12/07/24 08 :38 Coding Level of Care Code Off vis,est,level 3 Diagnoses Supervision of high risk in third trimester O09.93 Trimester: third trimester headache in third trimester O26.893; R51.9 Trimester: third trimester Marginal insertion of umbilical cord 32 weeks gestation of Z3A.32 Weeks of gestation: 32 weeks Positive GBS test B95.1 Personal history of kidney stones Z87.442 Bipolar 2 disorder F31.81 Urinary tract infection in mother during third trimester of O23.43 Trimester: third trimester Normal echocardiogram Gastroparesis K31.84 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 POTS (postural orthostatic tachycardia syndrome) G90.A Assessment and Plan Assessment and Plan (1) Supervision of high-risk : Status: Acute Qualifiers: Trimester: third trimester Qualified Code(s): O09.93 - Supervision of high risk , unspecified, third trimester Comment: PRR(scanned [place]), [facility] 01/26/26, Sahil (2) Headache in : Status: Acute Qualifiers: Trimester: third trimester Qualified Code(s): O26.893 - Other specified related conditions, third trimester; R51.9 - Headache, unspecified Comment: Pre E labs (3) Marginal insertion of umbilical cord: Status: Acute Comment: growth Q4w (4) : Status: Acute Qualifiers: Weeks of gestation: 32 weeks Qualified Code(s): Z3A.32 - 32 weeks gestation of Comment: NIPT low risk, gender male-pt unsure if had carrier (5) Positive GBS test: Status: Acute Comment: treat in labor (6) Personal history of kidney stones: Status: Acute Comment: 3 different times (7) Bipolar 2 disorder: Status: Acute (8) UTI in : Status: Acute Qualifiers: Trimester: third trimester Qualified Code(s): O23.43 - Unspecified infection of urinary tract in , third trimester (9) Normal echocardiogram: Status: Acute Comment: EF 60-65% 09/29/24 [facility] (10) Gastroparesis: Status: Acute Comment: stool softeners (11) Yola-Danlos syndrome type III: Status: Acute Comment: growth scan Q4w 32w (12) POTS (postural orthostatic tachycardia syndrome): Status: Acute Comment: Has service dog. Orders: Orders POC Urinalysis 2 Dip (Clinic) Today CBC W/Diff, Automated Today O26.899 - Other specified related conditions, unspecified trimester, R51.9 - Headache, unspecified Comprehensive Metabolic Profil Today O26.899 - Other specified related conditions, unspecified trimester, R51.9 - Headache, unspecified Protein+Creatinine Ratio,Urine Today O26.899 - Other specified related conditions, unspecified trimester, R51.9 - Headache, unspecified Plan problem list reviewed and updated for most current plan of care and appropriate orders placed. Relevant counseling for the gestational age appropriate provided and ACOG education checklist updated. Continue routine care and follow up. 12/07/24 0848 <Electronically signed by Lenora delgadillo CHANNEL MARKETING MANAGER CHANNEL MARKETING MANAGER-C> Date _ Lenora Vidal CHANNEL MARKETING MANAGER CHANNEL MARKETING MANAGER-C Cosigner Signature: Date (if applicable) CC: ~ [employer] Work Phone: Reason for referral (narrative)* Consultation (Urgent) - New Request Specialty Diagnoses / Procedures Referred By Zonia machado Referred To Contact Cardiovascular Medicine Diagnoses Abnormal EKG Palpitations Qiana Torre PA-C [address] [place] [id number] Sahil Hernández DO [address] [place] [address] Referral ID Status Reason Start Date Expiration Date V isits Requested Visits Authorized [id number] New Request 01/03/2022 01/28/2023 1 1 * Radiology (Emergency) - Auth Not Needed Specialty Diagnoses / Procedures Referred By Zonia machado Referred To Contact Cardiovascular Medicine Procedures HOLTER MONITOR - 24 HOUR Qiana Torre PA-C [address] [place] [address] [facility] Artist Color Separation [address] [place] [phone] Referral ID Status Reason Start Date Expiration Date V isits Requested Visits Authorized [id number] Auth Not Needed 01/03/2022 01/28/2023 1 1 * Radiology (Emergency) - New Request Specialty Diagnoses / Procedures Referred By Contac t Referred To Contact Procedures ECG Qiaan Torre PA-C [address] [facility] [address] [place] [address] Referral ID Status Reason Start Date Expiration Date V isits Requested Visits Authorized [id number] New Request 01/03/2022 01/28/2023 1 1 [facility] Consultation (Routine) - Patient to Arrange Specialty Diagnoses / Procedures Referred By Contact Referred To Contact Sports Medicine and Rehabilitation Diagnoses Patellofemoral instability, right Kevin Luna, PAC [address] [place] [address] Referral ID Status Reason Start Date Expiration Date V isits Requested Visits Authorized [id number] Patient to Arrange 08/06/2022 08/31/2023 1 1 Scheduling Instructions [facility] at [address] Room: [address] [address] [phone] FAX [facility] [place] [address] [place] [address] FAX [facility] at [facility] [address] [place], [place] [address] FAX [facility] at [facility] [address] [facility] [address] [place], [place] [address] FAX [facility] [address] [facility] [facility] [place] [address] FAX Outpatient Rehabilitation Outpatient [facility] [place] [address] [facility] [place] [address] FAX [facility] [address] [place] [address] [phone] FAX Continued on next page [facility] [place] [address], [place] [address] [phone] FAX [facility] [address] [place] [address] [phone] FAX Outpatient Rehabilitation Outpatient Care [address] [place] [address] [phone] FAX [facility] at [facility] [address] [place] [address] FAX Outpatient Care [address] [address] FAX [facility] at [facility], Room [address] [place] [address] FAX * Radiology (Routine) - New Request Specialty Diagnoses / Procedures Referred By Zonia machado Referred To Contact Procedures US IMAGING Calin Alex MD [address] [place] [address] Referral ID Status Reason Start Date Expiration Date V isits Requested Visits Authorized [id number] New Request 08/06/2022 08/31/2023 1 1 [facility]No reason for referral information [facility] Work Phone: Reason for visit Narrative* Radiology (Routine) - Closed Specialty Diagnoses / Procedures Referred By Contac t Referred To Contact Diagnoses Yola-Danlos syndrome type III Procedures ECHOCARDIOGRAM OK ECHO TTHRC R-T 2D W/WOM-MODE COMPL SPEC&COLR D Loyd Prado MD [address] [place] [address] [address] [place] [address] Phone: tel: fax: Referral ID Status Reason Start Date Expiration Date Visits Re quested Visits Authorized [id number] Closed 09/01/2024 09/26/2025 1 1 [facility] Summary Purpose Family History No Family History Records Found Relationship Condition Age at Onset Recorded Date/T tara mother Cerebrovascular accident (CVA) 28 Hypertension Unknown Not Specified Diabetes mellitus Unknown Non-alcoholic micron odular cirrhosis of liver Unknown Aneurysm of splenic artery Unknown Arthritis Unknown Not Specified High blood cholesterol Unknown sister Polycystic ovary syndrome Unknown Bipolar I disorder Unknown Borderline personality disorder Unknown Inappropriate sinus tachycardia Unknown brother Autistic disorder Unknown Epilepsy Unknown uncle Malignant neoplasm 33 Advance Directives No Advanced Directives Records FoundDocuments on File Type Date Recorded Patient Linter Tender Expl anation Advance Directives and Livin g Will 09/22/2018 7:32 PM Documents on File Type Date Recorded Patient Linter Tender Expl anation Advance Directives and Livin g Will 12/14/2018 10:35 PM Documents on File Type Date Recorded Patient Linter Tender Expl anation Advance Directives and Livin g Will 03/23/2019 7:07 PM Documents on File Type Date Recorded Patient Linter Tender Expl anation Advance Directives and Livin g Will 05/19/2019 11:10 PM Documents on File Type Date Recorded Patient Linter Tender Expl anation Advance Directives and Livin g Will 05/19/2019 11:10 PM Documents on File Type Date Recorded Patient Linter Tender Expl anation Advance Directives and Livin g Will 10/14/2019 8:18 AM Documents on File Type Date Recorded Patient Linter Tender Expl anation Advance Directives and Livin g Will 11/02/2019 1:53 PM Documents on File Type Date Recorded Patient Linter Tender Expl anation Advance Directives and Livin g Will 05/17/2020 11:27 PM Documents on File Type Date Recorded Patient Linter Tender Expl anation Advance Directives and Livin g Will 11/02/2019 1:53 PM Documents on File Type Date Recorded Patient Linter Tender Expl anation Advance Directives and Livin g Will 06/17/2020 11:27 PM Documents on File Type Date Recorded Patient Linter Tender Expl anation Advance Directives and Livin g Will 11/19/2020 11:54 AM [email or web address] only Documents on File Type Date Recorded Patient Linter Tender Expl anation Advance Directives and Livin g Will 11/19/2020 11:54 AM [email or web address] only Date Activated Date Inactivated Comments 07/19/2023 1:06 PM Date Activated Date Inactivated Comments 07/19/2023 1:06 PM Reason for Referral Status Reason Specialty Diagnoses / Procedures Referred By Contact Referred To Contact Schedule Outgoing - Transfer of Care Diagnoses Anxiety Milton Leos MD [address] [place], [place] [id number] System, Provider Not In Status Reason Specialty Diagnoses / Procedures Referred By Contact Referred To Contact New Request Procedures ECG Fbaien Martini, DO [address] [facility] [place] [address] Status Reason Specialty Diagnoses / Procedures Referred By Contact Referred To Contact Pending Review Radiology Diagnoses Knee meniscus pain, right Tear of MCL (medial collateral ligament) of knee, right, initial encounter Procedures MR Knee Right Without Contrast Alexis Briggs MD [address] [place] [address] Status Reason Specialty Diagnoses / Procedures Referred By Contact Referred To Contact New Request Gastroenterology Diagnoses Nausea Milton Leos MD [address] [place] [id number] Status Reason Specialty Diagnoses / Procedures Referred By Contact Referred To Contact New Request Genetics Diagnoses EDS (Yola-Danlos syndrome) Milton Leos MD [address] [address] Status Reason Specialty Diagnoses / Procedures Referre d By Contact Referred To Contact Closed Radiology Diagnoses Knee meniscus pain, right Tear of MCL (medial collateral ligament) of knee, right, initial encounter Procedures MR Knee Right Without Contrast Alexis Briggs MD [address] [facility] [address] [place] [address] Status Reason Specialty Diagnoses / Procedures Referred By Contact Referred To Contact New Request Diagnoses Instability of shoulder joint, 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, left shoulder Procedures MRI SHOULDER LEFT WITHOUT CONTRAST [place] MRI, JOINT UPPER EXTREM Milton Leos MD [address] [facility], [facility] Status Reason Specialty Diagnoses / Procedures Referred By Contact Referred To Contact New Request Diagnoses Intractable chronic paroxysmal hemicrania Procedures MRI BRAIN WITHOUT CONTRAST OK MRI BRAIN Milton Leos MD [address] [place] [facility] [place] [address] Status Reason Specialty Diagnoses / Procedures Referred By Contact Referred To Contact New Request Diagnoses Chronic fatigue Procedures CHEKO MULTIPLEX SCRN WITH REFLEX Milton Leos MD [address] [place] [facility] [place] [address] Status Reason Specialty Diagnoses / Procedures Referred By Contact Referred To Contact Closed Magnetic Resonan ce Imaging Diagnoses Intractable chronic paroxysmal hemicrania Procedures MRI BRAIN WITHOUT CONTRAST OK MRI BRAIN Milton Leos MD [address] [place] [facility] [place] [address] [facility] [address] [place] [address] Status Reason Specialty Diagnoses / Procedures Referred By Contact Referred To Contact Authorized Orthopedic Surgery / Sports Medicine Diagnoses Instability of right patellofemoral joint Yumiko Hancock, ARNOLD [address] [facility] 2 [place] [address] Mary Miguel MD [address] [place] [address] Status Reason Specialty Diagnoses / Procedures Referred By Contact Referred To Contact Authorized Rehabilitation Diagnoses Instability of right patellofemoral joint Mary Miguel MD [address] [place] [address] Op Physical Therapy [address] [place] [address] Status Reason Specialty Diagnoses / Procedures Referred By Contact Referred To Contact Closed Magnetic Resonan ce Imaging Diagnoses Instability of shoulder joint, 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, left shoulder Procedures MRI SHOULDER LEFT WITHOUT CONTRAST [place] MRI, JOINT UPPER EXTREM Milton Leos MD [address] [place] [address] [facility] [address] [place] [address] Status Reason Specialty Diagnoses / Procedures Referred By Contact Referred To Contact Pending Review Milton Leos MD [address] [place] [address] Specialty Diagnoses / Procedures Referred By Contac t Referred To Contact Radiology Diagnoses Tear of right acetabular labrum, initial encounter Procedures MR Hip Right Without Contrast Mary Miguel MD [address] [place] [address] Referral ID Status Reason Start Date Expiration Date V isits Requested Visits Authorized [id number] New Request 12/29/2020 12/29/2021 1 1 Referral ID Status Reason Start Date Expiration Date V isits Requested Visits Authorized [id number] New Request 07/27/2021 07/27/2022 1 1 Specialty Diagnoses / Procedures Referred By Contac t Referred To Contact Radiology Diagnoses Tear of left acetabular labrum, subsequent encounter Procedures MR Hip Left Without Contrast Mary Miguel MD [address] [place] [address] Referral ID Status Reason Start Date Expiration Date V isits Requested Visits Authorized [id number] New Request 07/27/2021 07/27/2022 1 1 Specialty Diagnoses / Procedures Referred By Contac t Referred To Contact Procedures ECG Nathaniel Reyes MD [address] [place] [address] Referral ID Status Reason Start Date Expiration Date V isits Requested Visits Authorized [id number] New Request 01/04/2022 01/29/2023 1 1 Specialty Diagnoses / Procedures Referred By Contac t Referred To Contact Radiology Diagnoses Abnormal finding on imaging Breast lump in upper outer quadrant Procedures US Breast Biopsy Left Dallin More MD [address] [facility] [place] [address] Referral ID Status Reason Start Date Expiration Date V isits Requested Visits Authorized [id number] Authorized 04/17/2022 04/17/2023 1 1 Specialty Diagnoses / Procedures Referred By Contac t Referred To Contact Radiology Diagnoses Chronic constipation Bloating Nausea Procedures XR Upper GI With Esophagram Yina Ahn, SOLVENT PLANT OPERATOR [address] [place] [address] [address] Referral ID Status Reason Start Date Expiration Date V isits Requested Visits Authorized [id number] Pending Review 04/23/2022 04/23/2023 1 1 Specialty Diagnoses / Procedures Referred By Contac t Referred To Contact Radiology Diagnoses Chronic constipation Bloating Nausea Procedures XR Small Bowel Follow Through Yina Ahn, SOLVENT PLANT OPERATOR [address] [place] [address] [address] Referral ID Status Reason Start Date Expiration Date V isits Requested Visits Authorized [id number] Pending Review 04/23/2022 04/23/2023 1 1 Specialty Diagnoses / Procedures Referred By Contac t Referred To Contact Diagnoses Right knee pain, unspecified chronicity Procedures MRI KNEE RIGHT WITHOUT CONTRAST OK MRI LOWER EXTREM JT, W/O CONTRAST Sulema Lazar MD [address] [facility] [address] [place] [address] Referral ID Status Reason Start Date Expiration Date V isits Requested Visits Authorized [id number] New Request 06/14/2022 07/09/2023 1 1 Referral ID Status Reason Start Date Expiration Date Visits Re quested Visits Authorized [id number] Closed 06/14/2022 07/09/2023 1 1 Specialty Diagnoses / Procedures Referred By Contac t Referred To Contact Diagnoses S/P knee surgery Procedures XR KNEE RIGHT 2 VIEWS Kevin Luna, PAC [address] [place] [address] Referral ID Status Reason Start Date Expiration Date V isits Requested Visits Authorized [id number] New Request 08/22/2022 09/16/2023 1 1 Specialty Diagnoses / Procedures Referred By Contac t Referred To Contact Diagnoses 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breast, left Procedures US BREAST LIMITED UNILATERAL LEFT Parish, Kaylynn Wood, PHARMACOLOGY TEACHER-SOLVENT PLANT OPERATOR [address] [place] [address] Referral ID Status Reason Start Date Expiration Date V isits Requested Visits Authorized [id number] New Request 09/13/2022 10/08/2023 1 1 Specialty Diagnoses / Procedures Referred By Contac t Referred To Contact Procedures US PELVIC WITH TRANSVAGINAL WITH DOPPLER US PELVIC W TRANSVAGINAL Qiana Torre PA-C [address] [place] [address] Referral ID Status Reason Start Date Expiration Date V isits Requested Visits Authorized [id number] New Request 04/04/2023 04/28/2024 1 1 Specialty Diagnoses / Procedures Referred By Contac t Referred To Contact Procedures C REACTIVE PROTEIN Norm Smith PA-C [address] [place] [address] Referral ID Status Reason Start Date Expiration Date V isits Requested Visits Authorized [id number] New Request 07/23/2023 08/16/2024 1 1 Specialty Diagnoses / Procedures Referred By Contac t Referred To Contact Procedures ECG Meme Prasad MD [address] [phone] Referral ID Status Reason Start Date Expiration Date V isits Requested Visits Authorized [id number] New Request 11/28/2023 12/22/2024 1 1 Assessments Diagnosis Anxiety - Primary Anxiety state, unspecified Diagnosis Yola-Danlos syndrome - Ana viki Neck pain Cervicalgia Diagnosis Encounter for routine child health examination without abnormal findings- Primary Routine or child health check Diagnosis Knee meniscus pain, right- Primary Tear of MCL (medial collateral ligament) of knee, right, initial encounter Diagnosis Nausea- Primary Nausea alone Diagnosis EDS (Yola-Danlos syndrome)- Primary Yoal-Danlos syndrome Diagnosis Non-intractable vomiting with nausea, unspecified vomiting type- Primary Dehydration Diagnosis Intractable vomiting with nausea, unspecified vomiting type- Primary Diagnosis Knee meniscus pain, right Tear of MCL (medial collateral ligament) of knee, right, initial encounter Diagnosis Oral aphthous ulcer- Primary Oral aphthae Diagnosis Left shoulder pain, unspecified chronicity- Primary Diagnosis Yola-Danlos syndrome- Primary Instability of shoulder joint, unspecified laterality Recurrent dislocation, left shoulder Fibromyalgia Mylagia and myositis, unspecified Trapezius muscle spasm Spasm of muscle Anxiety Anxiety state, unspecified Diagnosis Abdominal pain in female patient- Primary Bloody stools Diagnosis Nonintractable headache, unspecified chronicity pattern, unspecified headache type Pharyngitis, unspecified etiology Feeling tired Diagnosis Chronic daily headache- Primary Headache Chronic fatigue Other malaise and fatigue 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 Fibromyalgia Mylagia and myositis, unspecified Diagnosis 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 Diagnosis Viral gastroenteritis Intestinal infection due to other organism, NEC Diagnosis Dysuria Diagnosis Need for vaccination Need for prophylactic vaccination and inoculation against unspecified single disease Encounter for routine child health examination without abnormal findings Routine or child health check Diagnosis 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, 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- Primary Diagnosis S/P right knee arthroscopy- Primary 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 Diagnosis Routine screening for STI (sexually transmitted infection)- Primary Screening examination for venereal disease Encounter for routine child health examination without abnormal findings Routine or child health check Need for vaccination Need for prophylactic vaccination and inoculation against unspecified single disease Diagnosis Dysuria- Primary Urinary pain Renal colic Diagnosis Hematuria, unspecified type- Primary Diagnosis Instability of right patellofemoral joint Tear of MCL (medial collateral ligament) of knee, right, initial encounter Diagnosis Dysuria- Primary Diagnosis 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 * Back and Neck Pain, General ([facility]) in this encounter* Attachments The following attachments cannot be sent through Care Everywhere. * Dehydration: Pediatric ([facility]) * Nausea and Vomiting: Teen ([facility]) documented in this encounter* Attachments The following attachments cannot be sent through Care Everywhere. * Nausea and Vomiting: Pediatric ([facility]) documented in this encounter* Attachments The following attachments cannot be sent through Care Everywhere. * Canker Sores: Teen ([facility]) documented in this encounter* Attachments The following attachments cannot be sent through Care Everywhere. * Shoulder Pain ([facility]) documented in this encounter* Attachments The following attachments cannot be sent through Care Everywhere. * Abdominal Pain ([facility]) * GI Bleed: Pediatric ([facility]) documented in this encounter* Attachments The following attachments cannot be sent through Care Everywhere. * Fatigue: Pediatric ([facility]) * Headache: Pediatric ([facility]) documented in this encounter* Instructions* John Ordaz MD - 05/20/2019 increase oral fluid intake; Imodium 2 mg 6 hours for abdominal pain ; BRAT diet; return to ER if gets worse * Attachments The following attachments cannot be sent through Care Everywhere. * Gastroenteritis: Pediatric ([facility]) documented in this encounter* Attachments The following attachments cannot be sent through Care Everywhere. * Chest Pain: Pediatric ([facility]) documented in this encounter Instructions * Patient Instructions - Milton Leos MD - 04/08/2018 10:17 AM THERON Hernandez not currently . 12-14 Years Caring for Your 12- to 14-Year-Old Development Children this age are encouraged to contribute around the house. Assign reasonable chores to your child and offer praise when the job is done well. This teaches your child to help others, and also instills a sense of self- sufficiency and satisfaction. Encourage your child to tell you about his or her day and whether someone is hurting or bullying him or her at school. Limit screen time to two hours or less each day. Children this age should not have a TV or computerin the bedroom. Set aside time each day to interact with your child. Regular physical activity is fun and healthy. The recommendation is one hour of physical exercise daily. Answer your child s questions about his or her changing body. Your child s doctor can help you start a conversation about puberty and sex. There are also several age-appropriate books on the subject that you can review together. All children this age should be bathing daily and wearing deodorant. (Unless they have a special dry skin condition.) Nutrition Eat meals together as a family whenever possible. Ensure your child eats breakfast every day. Limit candy, junk food and other fatty foods. Avoid soda, tea, coffee, sports drinks, juice and flavored drinks. Offer fruits and vegetables at meals and as snacks. Be sure your child is drinking low-fat milk or eating dairy products to maintain good growth, and healthy bones and teeth. Three servings of dairy and five servings of fruits/vegetables are encouraged each day. Discuss the use of nutrition sports supplements with your child s doctor. Be a role model for your child by making healthy choices. Mental Health Show your child how to manage pressure and peacefully settle disputes. Encourage open discussion and refrain from being judgmental. Help your child stay organized with school assignments to begin a smooth transition that gives him or her responsibility for schoolwork. Help your child discover an enjoyable activity outside of school. This can be sports, art, music, volunteer work anything that helps your early adolescent feel accomplished and proud. Routines and Discipline Never slap or hit your child, as it will teach him or her to hit others. Hug and praise your child for behaving well, being polite and trying hard in school. Set reasonable and consistent limits. When using discipline, the priority is to teach and protect your child, not to punish. Be a role model for your child. Show your child how to use appropriate words when angry, advocate for your child in school and apologize if you make a mistake. Oral Health Ensure your child brushes his or her teeth twice a day, using fluoride toothpaste. Daily flossing is encouraged. Your child should see a dentist every six months for routine checkups. If possible, your child should wear a mouth guard during contact sports. Safety Supervise your child while playing with friends. Know who your child spends time with inside and outside of school. Know where your child is after school and what he or she is doing. Use sunscreen when spending time outdoors. Watch your child carefully around water. Swim lessons are encouraged. A helmet should be worn when riding a bike, skiing, sledding, ice skating, horseback riding, skateboarding and in-line skating. Riding an ATV is discouraged. Teach your child how to be safe with other adults. Encourage your child to tell you when a person or situation makes him or her feel unsafe. Explain that no one has the right to tell your child to keep secrets from parents. Warn your child about the dangers of cigarettes, alcohol and drug use. Your child s doctor can helpwith this conversation, but it is important for your child to know to come to you with any questions. If you have a gun in your home, ensure the gun and ammunition are kept safely locked away. The back seat of the vehicle is the safest place for children under 13 years old. All passengers should wear a seat and shoulder belt. Parents should serve as role models and always buckle up. This document contains general parenting information based on [employer] recommendations and is not meant to replace the expert advice of your hub bander. in this encounter* Patient Instructions* Milton Leos MD - 05/29/2019 8:20 AM EDT No show documented in this encounter* Patient Instructions* Kimo Rojo PT - 11/02/2019 2:00 PM EDT Patient Education provided: POC based on condition specific prognosis. HEP and attendance compliance and importance for improvement of symptoms. documented in this encounter* Patient Instructions* Milton Leso MD - 12/17/2019 9:20 AM EDT Ethan A Mary Blood pressure 104/70, pulse 104, temperature 97.8 F (36.6 C), temperature source Temporal, resp. rate 20, height 1.735 m (5' 8.31), weight 68.3 kg (150 lb 8 oz), last menstrual period 12/03/2019, SpO2 98 %, not currently . 15-18 Years Caring for Your 15- to 18-Year-Old Development Teens are encouraged to contribute around the house. Assign reasonable chores and offer praise whenthe job is done well. This teaches them to help others, and instills a sense of self-sufficiency and satisfaction. Encourage your child to tell you about his or her day and to tell you if someone is hurting or bullying him or her at school. Limit screen time to two hours or less each day. Children this age should not have a TV or computerin the bedroom. Establish firm rules about cell phone, texting, Internet and social media use. Set aside time to interact with your child daily. Regular physical activity is fun and healthy. The recommendation is one hour of physical exercise daily. Nutrition Eat meals together as a family, whenever possible. Always ensure that your child eats breakfast. Limit candy, junk food, fast food and other fatty foods. Avoid soda, tea, coffee, sports drinks, juice and flavored drinks. Offer fruits and vegetables at meals and as snacks. Be sure your child is drinking low-fat milk or eating dairy products to maintain good growth, and healthy bones and teeth. Three servings of dairy and five servings of fruits/vegetables are encouraged each day. Discuss the use of nutrition sports supplements with your child s doctor. Be a role model for your child by making healthy choices. Mental Health Show your child how to manage pressure and peacefully settle disputes. Encourage open discussion and refrain from being judgmental. Help your child stay organized with school assignments and take responsibility for schoolwork. Help your child discover an enjoyable activity outside of school. This can be sports, art, music, volunteer work anything that helps your early adolescent feel accomplished and proud. Routines and Discipline Never slap or hit your child, as it will teach him or her to hit others. Hug and praise your child for behaving well, being polite and trying hard in school. Set reasonable and consistent limits and deliver discipline in a loving, but firm, manner. Be a role model for your teenager. Demonstrate how to use appropriate words when angry, advocate for him or her in school and apologize if you make a mistake. Support your teen in problem-solving and decision- making. Encourage your child to think about the future and begin to plan for it. If you have concerns about your teenager s mood, motivation or safety, talk with him or her. Your child s doctor can help with this conversation. Oral Health Teens should brush their teeth twice per day, using fluoride toothpaste. Daily flossing is encouraged. Be sure your teen sees a dentist every six months for routine checkups. If possible, teens should wear a mouth guard during contact sports. Safety Use sunscreen when spending time outdoors. A helmet should be worn when riding a bike, skiing, sledding, ice skating, horseback riding, skateboarding and in-line skating. Riding an ATV is discouraged. Know your child s friends and their families. Know where your child is after school, and what he orshe is doing. Teach your child to be safe with other adults. Encourage your child to tell you when a person or situation makes him or her feel unsafe. Help your teenager make smart and safe decisions about sexual activity. Be sure your child knows that healthy relationships are built on respect and that saying no is okay. Teach your child about the dangers of cigarettes, alcohol and drug use. Your child s doctor can help you with this conversation, but it is important for your child to know he or she can come to you with any questions. If you have a gun in your home, be sure the gun and ammunition are both kept safely locked away. Picitup safety courses are a good way to safely introduce teens to safe firearms handing. Set expectations for safe driving, including: Proper use of seatbelts Avoidance of substances and situations that alter reaction time and judgment (alcohol, drugs, fatigue) Minimizing distractions (cell phones, overcrowding of car) Respecting fellow drivers Assessing driving conditions and other safe driving practices This document contains general parenting information based on [employer] recommendations and is not meant to replace the expert advice of your hub bander. documented in this encounter History of Present Illness * Milton Leos MD - 04/11/2018 8:40 AM EST No show in this encounter* Alexis Briggs MD - 06/09/2018 11:59 AM EDT Subjective: Patient ID: Ethan Hernandez is a 13 y.o. female. HPI: Patient is a 13-year-old female is here today with her mother. She has a history of Erler Danlos syndrome. She notes she was running track and her knee twisted and she felt a tear or pop on the inside part of her right knee. Review of Systems: Review of Systems Constitutional: Negative for activity change, appetite change, chills, fatigue and fever. HENT: Negative for congestion and trouble swallowing. Respiratory: Negative for chest tightness and shortness of breath. Cardiovascular: Negative for chest pain and palpitations. Gastrointestinal: Negative for constipation and diarrhea. Genitourinary: Negative for difficulty urinating and hematuria. Musculoskeletal: Positive for arthralgias and gait problem. Negative for back pain, joint swelling,myalgias, neck pain and neck stiffness. Skin: Negative for color change. Neurological: Negative for light-headedness, numbness and headaches. Hematological: Negative for adenopathy. Does not bruise/bleed easily. Psychiatric/Behavioral: Negative for confusion. Patient Active Problem List Diagnosis SNOMED CT(R) Tear of MCL (medial collateral ligament) of knee, right, initial encounter RUPTURE OF MEDIAL COLLATERAL LIGAMENT OF KNEE Objective: Physical Exam Dictation on: 06/09/2018 12:02 PM by: ALEXIS BRIGGS [[id number]] Imaging Studies: No results found. Assessment: SNOMED CT(R) 1. Knee meniscus pain, right KNEE PAIN 2. Tear of MCL (medial collateral ligament) of knee, right, initial encounter RUPTURE OF MEDIAL COLLATERAL LIGAMENT OF KNEE Plan: 1. Orders Placed This Encounter Procedures XR Knee Right WB OA 4 Views MR Knee Right Without Contrast No follow-ups on file. in this encounter* Milton Leos MD - 11/13/2018 8:40 AM EDT Ethan Hernandez comes in today with the following concerns: Chief Complaint Patient presents with Shoulder Pain left, pt has EDS and states that the shoulder is grinding, and it is coming out of socket and is causing pain to her neck and back as well. pt is seeing ortho at [facility] next month. mom is requesting MRI Pt has an appointment with [facility] Dec 08, 2018. She has EDS and has transitioned to [facility]. Dr. Viviana Owens is her Ortho Doctor. She was seen in [place] ED 11/07/18 and was given pain medication. Hx of subluxed shoulder in 8th grade. AT at [place] noted that there's nothing there to hold it in. She is ambidextrous. Shoulder Pain The pain is present in the left shoulder. This is a chronic problem. Episode onset: my whole life, I was told that my cartiledge is deteriorating fast. 1 month ago her shoulder pain worsened. Therehas been no history of extremity trauma. The problem occurs constantly. The problem has been gradually worsening. The quality of the pain is described as aching, burning, pounding and dull. The pain is severe. Pertinent negatives include no fever. The symptoms are aggravated by activity. She has tried cold, heat, NSAIDS and rest (biofreeze) for the symptoms. The treatment provided mild relief. Current Outpatient Medications Medication Sig Dispense Refill drospirenone-ethinyl estradiol 3-0.03 MG Tab Take 1 tablet by mouth Daily (with dinner). duloxetine [address] Particles capsule DR Take 30 mg by mouth 2 times daily. 2 cyclobenzaprine 10 MG Tab tablet Take 1 tablet by mouth 3 times daily as needed for Muscle spasms. (Patient not taking: Reported on 11/13/2018) 30 tablet 0 docusate sodium 50 MG Cap Take 2 capsules by mouth 2 times daily. (Patient not taking: Reported on 11/13/2018) 120 capsule 0 traMADol (ULTRAM) 50 MG Tab tablet Take 1 tablet by mouth every 6 hours as needed for up to 4 days.10 tablet 0 No current facility-administered medications for this visit. Social History Socioeconomic History Marital status: Single Spouse name: Not on file Number of children: Not on file Years of education: 7 Highest education level: Not on file Occupational History Not on file Social Needs Financial resource strain: Not on file Food insecurity: Worry: Not on file Inability: Not on file Transportation needs: Medical: Not on file Non-medical: Not on file Tobacco Use Smoking status: Never Smoker Smokeless tobacco: Never Used Substance and Sexual Activity Alcohol use: No Drug use: No Sexual activity: Never Lifestyle Physical activity: Days per week: Not on file Minutes per session: Not on file Stress: Not on file Relationships Social connections: Talks on phone: Not on file Gets together: Not on file Attends hindu service: Not on file Active member of club or organization: Not on file Attends meetings of clubs or organizations: Not on file Relationship status: Not on file Intimate partner violence: Fear of current or ex partner: Not on file Emotionally abused: Not on file Physically abused: Not on file Forced sexual activity: Not on file Other Topics Concern Service Not Asked Blood Transfusions Not Asked Caffeine Concern Not Asked Occupational Exposure Not Asked Hobby Hazards Not Asked Sleep Concern Not Asked Stress Concern Not Asked Weight Concern Not Asked Special Diet Not Asked Back Care Not Asked Exercise Not Asked Bike Helmet Not Asked Seat Belt Not Asked Domestic Violence No Social History Narrative Not on file Past Medical History: Diagnosis Date Yola-Danlos syndrome Dx age 3 Fibromyalgia Hip pain, acute, unspecified laterality 12/02/2017 Hx of echocardiogram 11/30/2015 [facility] 06/21/2016 Past Surgical History: Procedure Laterality Date OTHER SURGICAL 07/04/2018 gastric emptying with normal results [facility] APPENDECTOMY LAPAROSCOPIC 12/04/2017 [facility] TONSILLECTOMY ADENOIDECTOMY 01/2010 [facility]. Family History Problem Relation Age of Onset Stroke Mother Migraines Mother Other - Specify Sister depression, anxiety, bipolar disorder, ADHD Hypertension Maternal Grandmother Diabetes Maternal Grandmother Hypertension Maternal Grandfather No known problems Father Nurse Note: Review of Systems Constitutional: Negative for chills and fever. Eyes: Negative for visual disturbance. Respiratory: Positive for shortness of breath. Negative for cough, chest tightness and wheezing. Cardiovascular: Negative for chest pain, palpitations and leg swelling. Musculoskeletal: Positive for arthralgias, back pain and myalgias. Neurological: Positive for weakness (left arm). Negative for dizziness, light- headedness and headaches. Nursing Assessment: Physical Exam Blood pressure 120/64, pulse 68, temperature 97.5 F (36.4 C), temperature source Temporal, resp. rate 14, height 1.727 m (5' 8), weight 66.9 kg (147 lb 6.4 oz), SpO2 98 %, not currently . Physical Exam Physical Exam Constitutional: She is oriented to person, place, and time and well-developed, well-nourished, and in no distress. No distress. HENT: Head: Normocephalic and atraumatic. Eyes: Pupils are equal, round, and reactive to light. Conjunctivae and EOM are normal. Cardiovascular: Normal rate, regular rhythm, normal heart sounds and intact distal pulses. Exam reveals no gallop and no friction rub. No murmur heard. Pulmonary/Chest: Effort normal and breath sounds normal. No respiratory distress. She has no wheezes. She has no rales. Abdominal: Soft. Bowel sounds are normal. She exhibits no distension. There is no tenderness. Musculoskeletal: She exhibits no edema. Left shoulder: She exhibits decreased range of motion, tenderness (anterior humeral head), bony tenderness, deformity and pain. She exhibits no swelling, no effusion, no crepitus, no laceration, no spasm, normal pulse and normal strength. Cross arm testing positive left shoulder, pt unable to internally rotate or do empty can testing with left shoulder because of fear of dislocation. Overall lax. 5/5 hand strength b/l, 4/5 left arm strength flexion/extension. Unable to abduct arm more than 45 degrees from body 2/2 pain and laxity. Neurological: She is alert and oriented to person, place, and time. No cranial nerve deficit. Gait normal. Reflex Scores: Tricep reflexes are 1+ on the right side and 1+ on the left side. Bicep reflexes are 1+ on the right side and 1+ on the left side. Brachioradialis reflexes are 1+ on the right side and 1+ on the left side. Sensation intact b/l upper ext. Skin: Skin is warm and dry. No rash noted. She is not diaphoretic. No erythema. Psychiatric: Mood, memory, affect and judgment normal. Nursing note and vitals reviewed. ASSESSMENT & PLAN: ICD-10-CM 1. 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 Instability of shoulder joint, unspecified laterality M25.319 MRI SHOULDER LEFT WITHOUT CONTRAST 3. Recurrent dislocation, left shoulder M24.412 MRI SHOULDER LEFT WITHOUT CONTRAST 4. Fibromyalgia M79.7 5. Trapezius muscle spasm M62.838 6. Anxiety F41.9 Xrays to begin work up. I agree that she will need MRI but first will need xrays. ED report reviewed. Plan for symptomatic care - ok to use a sling for support. She has an Ortho appointment at [facility] in early Dec. * Flori Lamar LPN - 11/13/2018 8:40 AM EDT Nurse Note: Review of Systems Constitutional: Negative for chills and fever. Eyes: Negative for visual disturbance. Respiratory: Positive for shortness of breath. Negative for cough, chest tightness and wheezing. Cardiovascular: Negative for chest pain, palpitations and leg swelling. Musculoskeletal: Positive for arthralgias, back pain and myalgias. Neurological: Positive for weakness (left arm). Negative for dizziness, light- headedness and headaches. Nursing Assessment: Physical Exam documented in this encounter* Milton Leos MD - 04/06/2019 9:20 AM EST Ethan Hernandez comes in today with the following concerns: Chief Complaint Patient presents with Headache s/s x 1 month Mom has expressed concerns re: brain fog as well. She had MRI that showed a mass that improved withantibiotics. When she had her T&A, she had snot suctioned out of her brain. MRI brain and MRA [address] head normal 2012. MRI 2009 Brain showed ethmoid and maxillary sinus disease. Headache This is a new problem. Episode onset: 1 months ago. The problem occurs daily. The problem is unchanged (but more frequently - at first 3-4 times/week, now daily). The pain is present in the occipital, retro-orbital, frontal and left unilateral. The pain radiates to the upper back, left neck, left arm, left shoulder, right arm, right neck and right shoulder. The pain quality is not similar to prior headaches. Quality: sometimes it's a lot of pressure, sometimes it feels like someone is banging my head with a hammer. The pain is at a severity of 3/10. The pain is moderate. Treatments tried: heating pads, hydroxyzine (made anxiety worse). Excedrin migraine did not help significantly. Benadrylhelps a little, but makes her sleepy. The treatment provided mild relief. Her past medical history is significant for migraine headaches (diagn[facility]x 10 years [facility]) and migraines in the family. There is no history of intracranial lesions, obesity, recent head traumas, a seizure disorder, sinus disease or a ventriculoperitoneal shunt. Current Outpatient Medications Medication Sig Dispense Refill drospirenone-ethinyl estradiol 3-0.03 MG Tab Take 1 tablet by mouth Daily (with dinner). duloxetine [address] Particles capsule DR Take 30 mg by mouth daily. 2 amoxicillin-clavulanate 875-125 MG Tab tablet Take 1 tablet by mouth every 12 hours for 10 days. 20tablet 0 predniSONE 20 MG Tab tablet Take 1 tablet by mouth 2 times daily. 10 tablet 0 No current facility-administered medications for this visit. Social History Socioeconomic History Marital status: Single Spouse name: Not on file Number of children: Not on file Years of education: 7 Highest education level: Not on file Occupational History Not on file Social Needs Financial resource strain: Not on file Food insecurity: Worry: Not on file Inability: Not on file Transportation needs: Medical: Not on file Non-medical: Not on file Tobacco Use Smoking status: Never Smoker Smokeless tobacco: Never Used Substance and Sexual Activity Alcohol use: No Drug use: No Sexual activity: Yes Partners: Male control/protection: Condom, Pill Lifestyle Physical activity: Days per week: Not on file Minutes per session: Not on file Stress: Not on file Relationships Social connections: Talks on phone: Not on file Gets together: Not on file Attends hindu service: Not on file Active member of club or organization: Not on file Attends meetings of clubs or organizations: Not on file Relationship status: Not on file Intimate partner violence: Fear of current or ex partner: Not on file Emotionally abused: Not on file Physically abused: Not on file Forced sexual activity: Not on file Other Topics Concern Service Not Asked Blood Transfusions Not Asked Caffeine Concern Not Asked Occupational Exposure Not Asked Hobby Hazards Not Asked Sleep Concern Not Asked Stress Concern Not Asked Weight Concern Not Asked Special Diet Not Asked Back Care Not Asked Exercise Not Asked Bike Helmet Not Asked Seat Belt Not Asked Domestic Violence No Social History Narrative Not on file Past Medical History: Diagnosis Date Yola-Danlos syndrome Dx age 3 Fibromyalgia Hip pain, acute, unspecified laterality 12/02/2017 Hx of echocardiogram 11/30/2015 [facility] 06/21[facility]2016 Past Surgical History: Procedure Laterality Date OTHER SURGICAL 07/04/2018 gastric emptying with normal results [facility] APPENDECTOMY LAPAROSCOPIC 12/04/2017 [facility] TONSILLECTOMY ADENOIDECTOMY 01/2010 [facility]. Family History Problem Relation Age of Onset Stroke Mother Migraines Mother Other - Specify Sister depression, anxiety, bipolar disorder, ADHD Hypertension Maternal Grandmother Diabetes Maternal Grandmother Hypertension Maternal Grandfather No known problems Father Nurse Note: Review of Systems Constitutional: Positive for fatigue. Negative for chills and fever. Respiratory: Negative for cough, chest tightness and shortness of breath. Cardiovascular: Positive for palpitations. Negative for chest pain and leg swelling. Gastrointestinal: Positive for abdominal pain. Negative for blood in stool, constipation and diarrhea. Neurological: Positive for dizziness, light-headedness and headaches. Nursing Assessment: Physical Exam Blood pressure 104/80, pulse 85, temperature 97.6 F (36.4 C), temperature source Temporal, resp. rate 20, height 1.73 m (5' 8.11), weight 71.7 kg (158 lb), last menstrual period 04/06/2019, SpO2 97 %, not currently . Physical Exam Physical Exam Vitals signs and nursing note reviewed. Constitutional: General: She is not in acute distress. Appearance: Normal appearance. She is not ill-appearing or diaphoretic. HENT: Head: Normocephalic. Right Ear: Tympanic membrane, ear canal and external ear normal. There is no impacted cerumen. Left Ear: Tympanic membrane, ear canal and external ear normal. There is no impacted cerumen. Nose: Nose normal. Comments: Left maxillary, left frontal, and left ethmoid sinus TTP Mouth/Throat: Mouth: Mucous membranes are moist. Pharynx: Posterior oropharyngeal erythema present. No oropharyngeal exudate. Comments: Oropharynx erythematous with post-nasal drip Eyes: Conjunctiva/sclera: Conjunctivae normal. Pupils: Pupils are equal, round, and reactive to light. Neck: Musculoskeletal: Normal range of motion and neck supple. No muscular tenderness. Cardiovascular: Rate and Rhythm: Normal rate and regular rhythm. Heart sounds: Normal heart sounds. No murmur. No friction rub. No gallop. Pulmonary: Effort: Pulmonary effort is normal. No respiratory distress. Breath sounds: Normal breath sounds. No wheezing or rales. Abdominal: General: Bowel sounds are normal. There is no distension. Palpations: Abdomen is soft. Tenderness: There is no tenderness. Musculoskeletal: Normal range of motion. Lymphadenopathy: Cervical: No cervical adenopathy. Skin: General: Skin is warm and dry. Capillary Refill: Capillary refill takes less than 2 seconds. Findings: No erythema or rash. Neurological: Mental Status: She is alert and oriented to person, place, and time. Cranial Nerves: No cranial nerve deficit. Sensory: No sensory deficit. Motor: No weakness, tremor, abnormal muscle tone or pronator drift. Coordination: Romberg sign negative. Coordination normal. [id number]-[id number]-Rnvyeh Test and Heel to Luong Test normal. Rapid alternating movements normal. Gait: Gait is intact. Gait normal. Deep Tendon Reflexes: Reflexes normal. Reflex Scores: Bicep reflexes are 2+ on the right side and 2+ on the left side. Patellar reflexes are 2+ on the right side and 2+ on the left side. Psychiatric: Mood and Affect: Mood normal. Behavior: Behavior normal. Thought Content: Thought content normal. Judgment: Judgment normal. ASSESSMENT & PLAN: ICD-10-CM 1. Chronic daily headache R51 SEDIMENTATION RATE, AUTOMATED C REACTIVE PROTEIN amoxicillin-clavulanate 875-125 MG Tab tablet predniSONE 20 MG Tab tablet C REACTIVE PROTEIN SEDIMENTATION RATE, AUTOMATED 2. Chronic fatigue R53.82 TSH CHEKO MULTIPLEX SCRN WITH REFLEX RHEUMATOID FACTOR RHEUMATOID FACTOR CHEKO MULTIPLEX SCRN WITH REFLEX TSH 3. 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 Fibromyalgia M79.7 Pt's case and previous imaging reviewed with patient and her mother, who is very active and interjects with the conversation. Plan to treat for a chronic sinus infection now, as she has one sided facial pain and hx of extensive sinus infections causing headaches. Plan for repeat MRI as headaches are severe and worsening.DDx includes uncontrolled migraines vs. Fibromyalgia vs. MS vs. Malignancy vs. Muscle tension vs. Other. Next steps include referral back to Neurology. * Siena Berry LPN - 04/06/2019 9:20 AM EST Nurse Note: Review of Systems Constitutional: Positive for fatigue. Negative for chills and fever. Respiratory: Negative for cough, chest tightness and shortness of breath. Cardiovascular: Positive for palpitations. Negative for chest pain and leg swelling. Gastrointestinal: Positive for abdominal pain. Negative for blood in stool, constipation and diarrhea. Neurological: Positive for dizziness, light-headedness and headaches. Nursing Assessment: Physical Exam documented in this encounter* Milton Leos MD - 05/29/2019 8:20 AM EDT No show #2 - 10/2018 and 05/29/2019 documented in this encounter* Yumiko Hancock CNP - 09/02/2019 11:15 AM EDT Ethan Hernandez 2005 CC: 14 y.o. is a she with Chief Complaint Patient presents with Right Knee - Pain, Imaging Results . HPI: Knee Pain: Patient complains of right knee pain. This is evaluated as a personal injury. The pain began over one year ago. The pain is located medial, lateral, anterior, suprapatellar, patellar,patellar tendon. She describes the symptoms as aching and sharp at times of dislocations. Symptoms improve with rest. The symptoms are worse with activity, stair climbing, getting up from a chair, weight bearing. The knee has given out or felt unstable many times. She has frequent dislocations of the patella that she puts back in herself, states just standing her knee turns inwards. Also sometimes when she lays on the couch with her leg out straight her lower half of her right leg is at a 45 degree angle. The patient cannot bend and straighten the knee fully. The patient is active in none. Treatment to date has been ice, heat, Tylenol, NSAID's, knee sleeve/brace, therapy, without significant relief. Patient has Yola-Danlos disease. Mom states that her joints are very hypermobile. 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 She is getting frustrated with her knee dislocating on a daily basis. PMH: Allergies Allergen Reactions Latex Dermatitis Coconut Oil Rash Silk Tape Rash Current Outpatient Medications: drospirenone-ethinyl estradiol (TRACEY) 3-0.03 mg per tablet, Take 1 tablet by mouth daily ., Disp:, Rfl: 11 FLUoxetine (PROZAC) 10 MG tablet, Take 10 mg by mouth ., Disp: , Rfl: ondansetron (ZOFRAN) 4 MG tablet, Take 1 (one) tablet (4 mg total) by mouth every 4 (four) hours asneeded for nausea ., Disp: 10 tablet, Rfl: 0 ondansetron (ZOFRAN) 4 MG tablet, Take 1 (one) tablet (4 mg total) by mouth every 6 (six) hours as needed for nausea TAKE HOME PACK ., Disp: 2 tablet, Rfl: 0 Past Medical History: Diagnosis Date Anemia Arrhythmia Chest pain Depression Yola-Danlos disease Fatigue Fibromyalgia Gastroparesis POTS (postural orthostatic tachycardia syndrome) Shortness of breath Past Surgical History: Procedure Laterality Date ADENOIDECTOMY APPENDECTOMY APPENDECTOMY LAPAROSCOPIC 12/04/2017 ..................Dr. Jain TONSILLECTOMY Social History Socioeconomic History Marital status: Single Spouse name: Not on file Number of children: Not on file Years of education: Not on file Highest education level: Not on file Occupational History Not on file Social Needs Financial resource strain: Not on file Food insecurity Worry: Not on file Inability: Not on file Transportation needs Medical: Not on file Non-medical: Not on file Tobacco Use Smoking status: Never Smoker Smokeless tobacco: Never Used Substance and Sexual Activity Alcohol use: No Drug use: No Sexual activity: Not on file Lifestyle Physical activity Days per week: Not on file Minutes per session: Not on file Stress: Not on file Relationships Social connections Talks on phone: Not on file Gets together: Not on file Attends hindu service: Not on file Active member of club or organization: Not on file Attends meetings of clubs or organizations: Not on file Relationship status: Not on file Other Topics Concern Not on file Social History Narrative Not on file ROS: Review of Systems Constitutional: Negative for activity change and fatigue. HENT: Negative. Eyes: Negative. Respiratory: Negative for chest tightness and shortness of breath. Cardiovascular: Negative for chest pain. Gastrointestinal: Negative. Endocrine: Negative. Genitourinary: Negative. Musculoskeletal: Positive for arthralgias and gait problem. Skin: Negative for color change. Allergic/Immunologic: Negative. Neurological: Negative for dizziness, light-headedness and numbness. Hematological: Negative. Psychiatric/Behavioral: Negative for agitation. PE: Physical Exam Constitutional: She is oriented to person, place, and time. She appears well- developed and well-nourished. HENT: Head: Normocephalic and atraumatic. Eyes: Pupils are equal, round, and reactive to light. Neck: Normal range of motion. Neck supple. Cardiovascular: Normal rate and regular rhythm. Pulmonary/Chest: Effort normal and breath sounds normal. Abdominal: Soft. Musculoskeletal: General: Tenderness present. Neurological: She is alert and oriented to person, place, and time. Skin: Skin is warm and dry. Psychiatric: She has a normal mood and affect. Her behavior is normal. Right Knee Exam Tenderness The patient is experiencing tenderness in the patella, patellar tendon, medial joint line and lateral joint line (anterior). Range of Motion Extension: abnormal Flexion: normal Tests Bradly: Medial - negative Lateral - negative Varus: negative Valgus: negative Siria: Anterior - negative Posterior - negative Other Erythema: absent Scars: absent Sensation: normal Pulse: present Swelling: mild Comments: With patient standing her patella turns inwards towards the medial side and her right foot turns outwards Left Knee Exam Left knee exam is normal. Imaging: Xray- FINDINGS: Normal visualized distal femur. Normal visualized proximal tibia and fibula. Normal proximal tibiofibular articulation. There is no demonstrated fracture. Normal lateral femorotibial compartment. Normal medial femorotibial compartment. The patellofemoral joint is normal. There is no joint effusion. The soft tissues are unremarkable. IMPRESSION: Normal examination of the knee MRI 2019- FINDINGS: There is an upper range of physiologic volume of joint fluid. There is a tiny Murphy's cyst. There is no fracture or bone marrow signal abnormality. There is mild lateral tilting and slight lateral subluxation of the patella within the trochlea with the knee in the extended position. There is a small medial facet of the trochlea. There appears to be low-intermediate grade chondromalacia involving the median ridge of the patella, without evidence of high-grade chondromalacia. The femorotibial compartments are intact. The cruciate ligaments, collateral ligaments, quadriceps tendon, and patellar tendon are normal. The menisci are normal. IMPRESSION: 1. Mild lateral tilting and slight lateral subluxation of patella within the trochlea, with the knee in the extended position, secondary to mild patellofemoral dysplasia, with low-intermediate grade chondromalacia involving the median ridge of the patella, but no high-grade chondromalacia identified. 2. Tiny Murphy's cyst. 3. Otherwise, negative MRI of the right knee. 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 She has done all the conservative treatment she can do and she is wanting some sort of surgical intervention if possible. I amgoing to refer her to Dr. Miguel for evaluation for this. Patient was given a reaction knee braceto wear for stability. Patient and mother understand and agree to proceed. Follow Up: No follow-ups on file. Yumiko Hancock CNP documented in this encounter* Mary Miguel MD - 09/18/2019 5:06 PM EDT HISTORY OF PRESENT ILLNESS Ethan comes in today for evaluation of her right knee. Ethan unfortunately has had significant pain and discomfort in the right knee since starting the track season back in 2019. This year, with spring sports cancelled, she did not do any track, but she has continued to work out and do the exercise program her job coach/job developer has given her. What is complex about her is she suffers with Yola-Danlos syndrome and has laxity in many joints, including her shoulders, elbows, hips and knees. She said her ankles are really her best joints, but as far as the right knee goes, there is a burning pain. Thereis pain. There is discomfort, and it just never feels right. She has went on to have some conservative measures with multiple braces as well as physical therapy, no injections, but unfortunately she says the pain has gotten to the point where she just absolutely has trouble even getting through work. She just turned 14. She is very proud that she is able to buy her own car and drive now, and her mom is with her here today. I reviewed her x-rays. It shows shallow femoral trochlear groove. I reviewed her MRI scan from 06/09/2018, which showed some patellar tilting and subluxation. Trochlear dysplasia was noted and a very small Murphy cyst. Today, the patient has repeat x-rays of her right knee, which shows essentially normal-appearing right knee with a fairly shallow trochlear groove. PAST MEDICAL HISTORY She is allergic to latex and coconut. Medications: She currently takes an occasional p.r.n. [id number] pain medicine. Surgeries: Tonsils and adenoids, appendectomy, upper and lower endoscopy. Illnesses: She has POTS syndrome, depression, anxiety, major depressive disorder, fibromyalgia and Ehl ers-Danlos syndrome. REVIEW OF SYSTEMS Abdominal pain, constipation, frequent nausea, broken bones, dizzy spells, shortness of breath. Herheart rate will vary anywhere from, her mom says, 28 to 110 due to the POTS. SOCIAL HISTORY Alcohol and cigarettes: Denies. FAMILY HISTORY Of stroke in her mother, who is present today. PHYSICAL EXAM General: This patient is awake, alert and oriented x3, ambulates without an assistive device. She is with her mother. Musculoskeletal: She has no brace on today. Both lower extremities are neurologically intact, 2+ pulses. Both knees have hyperextension of approximately 7 degrees. She has a negative anterior drawer and negative Siria's. No varus or valgus instability in full extension or 30 degrees of flexion. She has hypermobility of the patella with lateral displacement of 2-1/2 quadrants and medial displacement of approximately 2 quadrants. She has a Q angle of 17 degrees; however, she has significant femoral internal rotation. Right hip full range of motion. Both elbows have significant hyperextension. Upper extremities neurologically intact, 2+ pulses. IMPRESSION 1.Patellofemoral instability. 2.Yola-Danlos syndrome. PLAN At this point in time, it is very difficult. She has exhausted physical therapy. She has exhausted bracing. We have talked about 2 options. Typical straightforward soft tissue realignment with this patient are unsuccessful in my career. What I have recommended is if they do feel like they want to proceed forward, I would recommend a tibial tubercle osteotomy with a medial soft tissue imbrication and a lateral release. If in the future this would fail to relieve her symptoms with her Yola-Danlos, I would recommend a femoral derotation osteotomy with a femoral trochleoplasty. I informed the mom that a simple lateral release with her Yola-Danlos syndrome is very rarely successful. I did have a good discussion with the patient and the patient's mother about the risk of operating on a patient with Yola-Danlos syndrome. They understand that. They will think about it and call me with their decision. documented in this encounter* Mary Miguel MD - 10/28/2019 4:26 PM EDT Dictation on: 10/28/2019 4:27 PM by: MARY MIGUEL [[id number]] documented in this encounter* Kimo Rojo PT - 11/02/2019 2:[address] [facility] Evaluation Today's Date 11/02/2019 Patient Name: Ethan Hernandez Date of : 2005 Case Name: Right Knee PFPS Functional Diagnosis: 1. Instability of right patellofemoral joint Clinical Information: Signs and Symptoms of Abuse/Neglect: No Actions Taken: No Suicide Risk: Does the patient feel like ending their life today?No Actions Taken: No CPT Code 29615 Low 83411 Moderate 54312 High History 0 1-2 3+ Comorbidities: SOB, POTS, major depressive disorder, gastroparesis, fibromyalgia, EDS, anxiety, andanemia. Personal factors: age, chronicity or severity of the current condition, fear avoidance, Sedentary lifestyle, transportation barriers and work/school barriers Examination of body systems (elements of body structures & functions, activity limitations, and/or participation restrictions) 1-2 elements 3+ elements 4+ elements See below clinicimpaired tolerance to evaluational impression Clinical Presentation Stable Evolving Unstable As evidenced by Decision Making Low (FOTO >/= 69) Moderate (FOTO 34 - 68) High (FOTO </= 33) FOTO score= 20 Pt is a 14 y.o. female who presents to PT services s/p R knee arthroscopy with lateral release and Anne Marie osteotomy of R tibial tubercle. Upon assessment, pt has been found with the following impairments: decreased ROM, decreased strength, impaired dynamic balance, antalgic gait, swelling, decreased stability and pain. 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 The pt would benefit from skilled PT services focused on the above listed impairments and limitations in order to safely progress pt to theirdesired level of function. Pt to be discharged from OP PT services if/when goals are met, if they fail to make progress with conservative management in PT, if their level of progress plateaus, or if they do not maintain compliance with attendance or HEP. At this time, it is my clinical judgment that services are medically necessary. FOTO Score - 11/02/19 1450 OTHER FOTO Score 20 Subjective Referring Diagnosis: Instability of right patellofemoral joint (M25.361 (ICD-10-CM)) Follow-up with physician: 11/26/2019 History of Present Illness Date of Onset: 10/14/2019 Surgery Date: 10/14/2019 Days Post-Op: 19 Chief Complaint/ Mechanism of Injury: Patient c/o chronic right knee dislocations and was determined that Sx intervention was necessary for preventing these injuries. Patient also has worsening of symptoms secondary to EDS. Patient arrives to outpatient PT after Sx for; PROCEDURES 1. Right knee arthroscopy with arthroscopic lateral release. 2. Anne Marie osteotomy, right tibial tubercle. 3. Vastus medialis advancement and medial retinaculum imbrication. Previous Treatment for this condition: Therapy (ATC) Prior treatment effectiveness: no relief Previous Imaging: X-ray Status: unchanged Hand dominance: right Pain Scale: Average Pain: 2/10 Pain at highest: 6/10 Aggravating factors: Walking, prolonged sitting, Stairs Easing factors: Ibuprophen 24 Hour Symptom Behavior Morning Pain: gradual Afternoon Pain: worse End of day pain: worse Nighttime pain: worse Functional Status Functional Limitations: limited mobility, recent decline in level of ADL, standing and sitting Premorbid Functional Level: Patient reported and Independent with all ADLs/IADLs Current Functional Level: see outcome tool Daily activity scale: sedentary Prior level of function: very active Gymnastics, Volleyball, Track, Working out, Biking Sleep Assessment Average sleep duration (hrs): 8 Preferred sleep position: on side and supine Sleep disturbance: no Sleep Disturbance Red Flags: None Barriers to Care: None Fall risk screening Fallen 2 or more times in the last 12 months: No Injured as a result of a fall in the last 12 months: No Personal Goals: To return to normal activities, Improve muscle mass, Return to all ADL's, IADL's, and recreational activities. Home medical equipment owned: Yes crutches and shower chair Social History Occupation: Student Home environment: house, lives with others and steps with no railing (2 [address]ITCH[address]) Caodaism, social, or cultural considerations to be made aware of before starting treatment: No Hip Left Hip Muscle Strength: Flexion: 4 Abduction: 4 Adduction: 4 IR: 4 ER: 4 Knee Right Knee Tenderness: medial joint line, lateral joint line, tibial tubercle and patellar tendon Range of Motion: Flexion Passive: 24 Extension Passive: 0 Muscle Strength: Right muscle strength functional limits: NT. Flexion: 0 Extension: 0 Quad Set: trace Left Knee Range of Motion: Flexion Passive: 134 Extension Passive: 2 Muscle Strength Flexion: 4 Extension: 4 Quad set: fair Joint Swelling (cm) Supra Patellar: (R)= 44, (L)=40 Infra Patellar: (R)= 42, (L)=37.5 Joint Line: (R)= 40, (L)=35.5 Treatments: Physical Therapy Exercise Log - 11/02/19 1404 OTHER Precautions/Contraindications (S) 11/02/19 Evaluation PROM 0-30 degrees for one week, 0-45 week two,0-60 week three, 0-90 week 4 Notes Visit 1; 2:00 - 3:00 PM Therapeutic Exercise ([id number]) Intervention Patient Education provided: POC based on condition specific prognosis. HEP and attendance compliance and importance for improvement of symptoms. 10 min Parameters Knee Flexion PROM 6 x 10 sec hold each (24 deg) PT Treatment Times Therex Total Time 15 Direct Treatment Time 15 Total Treatment Time 60 35 minute evaluation, 10 minutes rest Pt had poor tolerance to treatments after performing IE. Pt experienced prolonged feelings of nausea and light-headedness during PROM of the R knee. Pt's symptoms were monitored throughout until theyeventually subsided. At this time, therapeutic exercise were ceased to avoid aggravating pt's symptoms. Treatment Plan: Frequency of Visits: twice per week Duration: 6 weeks Interventions: Therapeutic Exercise, Neuromuscular Re-Education, Manual Therapy, Therapeutic/ Functional Activities, Gait Training, Hot/Cold Pack, Electrical Stimulation and Vasopneumatic Rehab Potential: fair Goals: Physical Therapy Ortho Goals: MOBILITY: Patient will be able to ambulate for 1 hour in community without difficulty in 6 weeks. MOBILITY: Patient will be able to ambulate on uneven surfaces without difficulty in 6 weeks. MOBILITY: Patient will be able to ascend/descend stairs without difficulty in 4 weeks. Impairment: Patient will be able to return to sporting and recreational activities by returning to performing running, jumping, and cutting skills without difficulty in 12 weeks. CHANGING MAINTAINING POSITON: Patient will be able to sit for 1 hour without pain in 4 weeks CHANGING MAINTAINING POSITON: Patient will be able to change position in bed without pain or difficulty in 4 weeks SELF CARE: Patient will be able to complete ADL's including bathing, dressing, and hair care without difficulty in 3 weeks. IMPAIRMENT: Patient will demonstrate improved postural awareness in PT sessions to facilitate mechanical alignment and function in 2 weeks. IMPAIRMENT: Improve pain from 6/10 to 0/10 during WB and ADL activity in 6 weeks IMPAIRMENT: Improve MMT of Right Knee Flexion from 4/5 to 5/5 in 6 weeks IMPAIRMENT: Improve MMT of Right Knee Extension from 4/5 to 5/5 in 6 weeks IMPAIRMENT: Improve PROM of Right Knee Flexion from 24 degrees to 120 degrees in 6 weeks. OTHER: Patient will be able to properly demonstrate independence with HEP in 2 weeks. Patient Education provided: POC based on condition specific prognosis. HEP and attendance compliance and importance for improvement of symptoms. Clinical Impression: Decreased strength, ROM, and stability of R knee s/p arthroscopy with lateral release and Anne Marie osteotomy of R tibial tubercle. Increased R knee swelling. Kimo Rojo PT STATE LICENSE, [id number] documented in this encounter* 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, COR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 - 11/05/2019 3:[address] 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 Objective Treatments: Physical Therapy Exercise Log - 11/05/19 1530 OTHER Precautions/Contraindications (S) 11/02/19 Evaluation PROM 0-30 degrees for one week, 0-45 week two,0-60 week three, 0-90 week 4 Notes Visit 2; 3:30 - 4:05 PM Therapeutic Exercise ([id number]) Intervention Patient Education provided: POC based on condition specific prognosis. HEP and attendance compliance and importance for improvement of symptoms. 10 min Parameters Knee Flexion PROM 10 x 10 sec hold each (approx 25 degrees) Additional Exercises Add more exercises? Yes Modalities Modalities Vasopneumatic Treatment Parameters x15 min med compression, 36 degrees PT Treatment Times Therex Total Time 15 Modalities Total Time 15 Direct Treatment Time 30 Total Treatment Time 30 Goals: Physical Therapy Ortho Goals: MOBILITY: Patient will be able to ambulate for 1 hour in community without difficulty in 6 weeks. MOBILITY: Patient will be able to ambulate on uneven surfaces without difficulty in 6 weeks. MOBILITY: Patient will be able to ascend/descend stairs without difficulty in 4 weeks. Impairment: Patient will be able to return to sporting and recreational activities by returning to performing running, jumping, and cutting skills without difficulty in 12 weeks. CHANGING MAINTAINING POSITON: Patient will be able to sit for 1 hour without pain in 4 weeks CHANGING MAINTAINING POSITON: Patient will be able to change position in bed without pain or difficulty in 4 weeks SELF CARE: Patient will be able to complete ADL's including bathing, dressing, and hair care without difficulty in 3 weeks. IMPAIRMENT: Patient will demonstrate improved postural awareness in PT sessions to facilitate mechanical alignment and function in 2 weeks. IMPAIRMENT: Improve pain from 6/10 to 0/10 during WB and ADL activity in 6 weeks IMPAIRMENT: Improve MMT of Right Knee Flexion from 4/5 to 5/5 in 6 weeks IMPAIRMENT: Improve MMT of Right Knee Extension from 4/5 to 5/5 in 6 weeks IMPAIRMENT: Improve PROM of Right Knee Flexion from 24 degrees to 120 degrees in 6 weeks. OTHER: Patient will be able to properly demonstrate independence with HEP in 2 weeks. Patient Education: Quality of movement and icing regularly at home with patient verbalized understanding. Post-Treatment Pain Scale: 0 Assessment: Patient had an expected response to treatment. Skilled Intervention demonstrated by modifications of treatment per exercise log including assessment of patient's response and modalities as indicated and safety interventions per exercise log. Progress towards goals as expected. Plan for Next Visit: Treatment Visit with focus on PROM per protocol 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 PTA STATE LICENSE, [id number] documented in this encounter* 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 PTA - 11/10/2019 1:[address] 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 Objective Treatments: Physical Therapy Exercise Log - 11/10/19 1350 OTHER Precautions/Contraindications (S) 11/02/19 Evaluation PROM 0-30 degrees for one week, 0-45 week two,0-60 week three, 0-90 week 4 Notes Visit 3; 1:50 - 2-45 PM Therapeutic Exercise ([id number]) Intervention Patient Education provided: POC based on condition specific prognosis. HEP and attendance compliance and importance for improvement of symptoms. 10 min Parameters Knee Flexion PROM x30 min 0- 40 degrees Additional Exercises Add more exercises? Yes Modalities Modalities Vasopneumatic Treatment Parameters x10 min med compression, 36 degrees PT Treatment Times Therex Total Time 35 Modalities Total Time 10 Direct Treatment Time 45 Total Treatment Time 45 Goals: Physical Therapy Ortho Goals: MOBILITY: Patient will be able to ambulate for 1 hour in community without difficulty in 6 weeks. MOBILITY: Patient will be able to ambulate on uneven surfaces without difficulty in 6 weeks. MOBILITY: Patient will be able to ascend/descend stairs without difficulty in 4 weeks. Impairment: Patient will be able to return to sporting and recreational activities by returning to performing running, jumping, and cutting skills without difficulty in 12 weeks. CHANGING MAINTAINING POSITON: Patient will be able to sit for 1 hour without pain in 4 weeks CHANGING MAINTAINING POSITON: Patient will be able to change position in bed without pain or difficulty in 4 weeks SELF CARE: Patient will be able to complete ADL's including bathing, dressing, and hair care without difficulty in 3 weeks. IMPAIRMENT: Patient will demonstrate improved postural awareness in PT sessions to facilitate mechanical alignment and function in 2 weeks. IMPAIRMENT: Improve pain from 6/10 to 0/10 during WB and ADL activity in 6 weeks IMPAIRMENT: Improve MMT of Right Knee Flexion from 4/5 to 5/5 in 6 weeks IMPAIRMENT: Improve MMT of Right Knee Extension from 4/5 to 5/5 in 6 weeks IMPAIRMENT: Improve PROM of Right Knee Flexion from 24 degrees to 120 degrees in 6 weeks. OTHER: Patient will be able to properly demonstrate independence with HEP in 2 weeks. Patient Education: Quality of movement with patient demonstrated understanding. Post-Treatment Pain Scale: 3 Assessment: Patient had an expected response to treatment. Skilled Intervention demonstrated by modifications of treatment per exercise log including increased load and safety interventions per exercise log. Progress towards goals as expected. Plan for Next Visit: Treatment Visit with focus on PROM per protocol up to 45 degrees 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 PTA STATE LICENSE, [id number] documented in this encounter* 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 PTA - 11/12/2019 3:[address] 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 Objective Treatments: Physical Therapy Exercise Log - 11/12/19 1530 OTHER Precautions/Contraindications (S) 11/02/19 Evaluation PROM 0-30 degrees for one week, 0-45 week two,0-60 week three, 0-90 week 4 Notes Visit 4; 3:30 - 4:30 PM Therapeutic Exercise ([id number]) Intervention Patient Education provided: POC based on condition specific prognosis. HEP and attendance compliance and importance for improvement of symptoms. 10 min Parameters Knee Flexion PROM x40 min 0- 40 degrees Additional Exercises Add more exercises? Yes Modalities Modalities Vasopneumatic Treatment Parameters x10 min med compression, 36 degrees PT Treatment Times Therex Total Time 45 Modalities Total Time 10 Direct Treatment Time 55 Total Treatment Time 55 Goals: Physical Therapy Ortho Goals: MOBILITY: Patient will be able to ambulate for 1 hour in community without difficulty in 6 weeks. MOBILITY: Patient will be able to ambulate on uneven surfaces without difficulty in 6 weeks. MOBILITY: Patient will be able to ascend/descend stairs without difficulty in 4 weeks. Impairment: Patient will be able to return to sporting and recreational activities by returning to performing running, jumping, and cutting skills without difficulty in 12 weeks. CHANGING MAINTAINING POSITON: Patient will be able to sit for 1 hour without pain in 4 weeks CHANGING MAINTAINING POSITON: Patient will be able to change position in bed without pain or difficulty in 4 weeks SELF CARE: Patient will be able to complete ADL's including bathing, dressing, and hair care without difficulty in 3 weeks. IMPAIRMENT: Patient will demonstrate improved postural awareness in PT sessions to facilitate mechanical alignment and function in 2 weeks. IMPAIRMENT: Improve pain from 6/10 to 0/10 during WB and ADL activity in 6 weeks IMPAIRMENT: Improve MMT of Right Knee Flexion from 4/5 to 5/5 in 6 weeks IMPAIRMENT: Improve MMT of Right Knee Extension from 4/5 to 5/5 in 6 weeks IMPAIRMENT: Improve PROM of Right Knee Flexion from 24 degrees to 120 degrees in 6 weeks. OTHER: Patient will be able to properly demonstrate independence with HEP in 2 weeks. Patient Education: Quality of movement with patient demonstrated understanding. Post-Treatment Pain Scale: 4 Assessment: Patient had an expected response to treatment. Skilled Intervention demonstrated by modifications of treatment per exercise log including increased load and increased rate and safety interventions per exercise log. Progress towards goals as expected. Plan for Next Visit: Treatment Visit with focus on PROM per protocol 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 PTA STATE LICENSE, [id number] documented in this encounter* 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 PTA - 11/16/2019 3:[address] [facility] DAILY TREATMENT NOTE Today's Date 11/16/2019 Patient Name: Ethan Hernandez Date of : 2005 Current Visit #: 5 Authorized Visits: 30 Case Name: Right Knee PFPS History: Pre-Treatment Pain Scale: 2 Symptoms: stabilized Functional Diagnosis: 1. Instability of right patellofemoral joint Clinical Information: Subjective: Pt reports no new symptoms and states been wearing immobilizer at home. Objective PROM to 50 degrees today, pt had increased pain but able to get to 40 degrees faster than last session. Treatments: Physical Therapy Exercise Log - 11/16/19 1530 OTHER Precautions/Contraindications (S) 11/02/19 Evaluation PROM 0-30 degrees for one week, 0-45 week two,0-60 week three, 0-90 week 4 Notes Visit 5; 3:30 - 4:30 PM Therapeutic Exercise ([id number]) Intervention Patient Education provided: POC based on condition specific prognosis. HEP and attendance compliance and importance for improvement of symptoms. 10 min Parameters Knee Flexion PROM x40 min 0- 50 degrees Additional Exercises Add more exercises? Yes Modalities Modalities Vasopneumatic Treatment Parameters x10 min med compression, 36 degrees PT Treatment Times Therex Total Time 45 Modalities Total Time 10 Direct Treatment Time 55 Total Treatment Time 55 Goals: Physical Therapy Ortho Goals: MOBILITY: Patient will be able to ambulate for 1 hour in community without difficulty in 6 weeks. MOBILITY: Patient will be able to ambulate on uneven surfaces without difficulty in 6 weeks. MOBILITY: Patient will be able to ascend/descend stairs without difficulty in 4 weeks. Impairment: Patient will be able to return to sporting and recreational activities by returning to performing running, jumping, and cutting skills without difficulty in 12 weeks. CHANGING MAINTAINING POSITON: Patient will be able to sit for 1 hour without pain in 4 weeks CHANGING MAINTAINING POSITON: Patient will be able to change position in bed without pain or difficulty in 4 weeks SELF CARE: Patient will be able to complete ADL's including bathing, dressing, and hair care without difficulty in 3 weeks. IMPAIRMENT: Patient will demonstrate improved postural awareness in PT sessions to facilitate mechanical alignment and function in 2 weeks. IMPAIRMENT: Improve pain from 6/10 to 0/10 during WB and ADL activity in 6 weeks IMPAIRMENT: Improve MMT of Right Knee Flexion from 4/5 to 5/5 in 6 weeks IMPAIRMENT: Improve MMT of Right Knee Extension from 4/5 to 5/5 in 6 weeks IMPAIRMENT: Improve PROM of Right Knee Flexion from 24 degrees to 120 degrees in 6 weeks. OTHER: Patient will be able to properly demonstrate independence with HEP in 2 weeks. Patient Education: Quality of movement with patient demonstrated understanding. Post-Treatment Pain Scale: 4 Assessment: Patient had an expected response to treatment. Skilled Intervention demonstrated by modifications of treatment per exercise log including increased load and safety interventions per exercise log. Progress towards goals as expected. Plan for Next Visit: Treatment Visit with focus on PROM per protocol 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 PTA STATE LICENSE, [id number] documented in this encounter* 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 PTA - 11/19/2019 3:[address] 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 Objective Treatments: Physical Therapy Exercise Log - 11/19/19 1530 OTHER Precautions/Contraindications (S) 11/02/19 Evaluation PROM 0-30 degrees for one week, 0-45 week two,0-60 week three, 0-90 week 4 Notes Visit 6; 3:30 - 4:35 PM Therapeutic Exercise ([id number]) Intervention Patient Education provided: POC based on condition specific prognosis. HEP and attendance compliance and importance for improvement of symptoms. 10 min Parameters Knee Flexion PROM x40 min 0- 55 degrees Intervention Heel slides 10 sec x15 Additional Exercises Add more exercises? Yes Modalities Modalities Vasopneumatic Treatment Parameters x10 min med compression, 36 degrees PT Treatment Times Therex Total Time 50 Modalities Total Time 10 Direct Treatment Time 60 Total Treatment Time 60 Goals: Physical Therapy Ortho Goals: MOBILITY: Patient will be able to ambulate for 1 hour in community without difficulty in 6 weeks. MOBILITY: Patient will be able to ambulate on uneven surfaces without difficulty in 6 weeks. MOBILITY: Patient will be able to ascend/descend stairs without difficulty in 4 weeks. Impairment: Patient will be able to return to sporting and recreational activities by returning to performing running, jumping, and cutting skills without difficulty in 12 weeks. CHANGING MAINTAINING POSITON: Patient will be able to sit for 1 hour without pain in 4 weeks CHANGING MAINTAINING POSITON: Patient will be able to change position in bed without pain or difficulty in 4 weeks SELF CARE: Patient will be able to complete ADL's including bathing, dressing, and hair care without difficulty in 3 weeks. IMPAIRMENT: Patient will demonstrate improved postural awareness in PT sessions to facilitate mechanical alignment and function in 2 weeks. IMPAIRMENT: Improve pain from 6/10 to 0/10 during WB and ADL activity in 6 weeks IMPAIRMENT: Improve MMT of Right Knee Flexion from 4/5 to 5/5 in 6 weeks IMPAIRMENT: Improve MMT of Right Knee Extension from 4/5 to 5/5 in 6 weeks IMPAIRMENT: Improve PROM of Right Knee Flexion from 24 degrees to 120 degrees in 6 weeks. OTHER: Patient will be able to properly demonstrate independence with HEP in 2 weeks. Patient Education: Quality of movement with patient demonstrated understanding. Post-Treatment Pain Scale: 3 Assessment: Patient had an expected response to treatment. Skilled Intervention demonstrated by modifications of treatment per exercise log including increased load and increased rate and safety interventions per exercise log. Progress towards goals as expected. Plan for Next Visit: Treatment Visit with focus on PROM up to 60 degrees flexion 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 PTA STATE LICENSE, [id number] documented in this encounter* 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 PTA - 11/26/2019 1:[address] [facility] DAILY TREATMENT NOTE Today's Date 11/26/2019 Patient Name: Ethan Hernandez Date of : 2005 Current Visit #: 9 Authorized Visits: 30 Case Name: Right Knee PFPS History: Pre-Treatment Pain Scale: 2 Symptoms: gradually improved Functional Diagnosis: 1. Instability of right patellofemoral joint Clinical Information: Subjective: Pt reports being able to lift leg to get into car but has difficulty with SLR. Pt states able to bend it to about 60 degrees but then it starts feeling weird and hip cramps up. Pt states sleeping without brace with no. Objective PROM up to 74 degrees with last 15 degrees very tight and slow getting to. Pt has increased pain with increased flexion and tenses hip up. Very poor quad control, requires mod assist for SLR secondary to quad lag, and emphasized quad set. Knee Right Knee Range of Motion: Flexion Passive: 74 Treatments: Physical Therapy Exercise Log - 11/26/19 1315 OTHER Precautions/Contraindications (S) 11/02/19 Evaluation PROM 0-30 degrees for one week, 0-45 week two,0-60 week three, 0-90 week 4 Notes Visit 9: 1:15 - 2:15 PM Therapeutic Exercise ([id number]) Intervention Patient Education provided: POC based on condition specific prognosis. HEP and attendance compliance and importance for improvement of symptoms. 10 min Parameters Knee Flexion PROM x40 min 0- 74 degrees Intervention Heel slides 10 sec x15 Parameters quad sets - 5 sec x20 Intervention glute sets - 5 sec x20 Parameters SLR - x10 max assist emphasize quad set Additional Exercises Add more exercises? Yes Modalities Modalities Vasopneumatic Treatment Parameters x10 min med compression, 36 degrees PT Treatment Times Therex Total Time 50 Modalities Total Time 10 Direct Treatment Time 60 Total Treatment Time 50 Goals: Physical Therapy Ortho Goals: MOBILITY: Patient will be able to ambulate for 1 hour in community without difficulty in 6 weeks. MOBILITY: Patient will be able to ambulate on uneven surfaces without difficulty in 6 weeks. MOBILITY: Patient will be able to ascend/descend stairs without difficulty in 4 weeks. Impairment: Patient will be able to return to sporting and recreational activities by returning to performing running, jumping, and cutting skills without difficulty in 12 weeks. CHANGING MAINTAINING POSITON: Patient will be able to sit for 1 hour without pain in 4 weeks CHANGING MAINTAINING POSITON: Patient will be able to change position in bed without pain or difficulty in 4 weeks SELF CARE: Patient will be able to complete ADL's including bathing, dressing, and hair care without difficulty in 3 weeks. IMPAIRMENT: Patient will demonstrate improved postural awareness in PT sessions to facilitate mechanical alignment and function in 2 weeks. IMPAIRMENT: Improve pain from 6/10 to 0/10 during WB and ADL activity in 6 weeks IMPAIRMENT: Improve MMT of Right Knee Flexion from 4/5 to 5/5 in 6 weeks IMPAIRMENT: Improve MMT of Right Knee Extension from 4/5 to 5/5 in 6 weeks IMPAIRMENT: Improve PROM of Right Knee Flexion from 24 degrees to 120 degrees in 6 weeks. OTHER: Patient will be able to properly demonstrate independence with HEP in 2 weeks. Patient Education: Quality of movement with patient demonstrated understanding. Post-Treatment Pain Scale: 3 Assessment: Patient had an expected response to treatment. Skilled Intervention demonstrated by modifications of treatment per exercise log including increased load and increased rate and safety interventions per exercise log. Progress towards goals as expected. Plan for Next Visit: Treatment Visit with focus on ROM per protocol. 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 PTA STATE LICENSE, [id number] documented in this encounter* Mary Miguel MD - 11/26/2019 5:47 PM EDT Dictation on: 11/26/2019 5:48 PM by: MARY MIGUEL [[id number]] documented in this encounter* Kimo Rojo PT - 11/27/2019 3:[address] 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 Miguel in regards to her right knee. She did states that he instructed her to remove the immobilizer at home and only use in public. Objective Knee Right Knee Range of Motion: Flexion Passive: 81 Extension Passive: 0 Muscle Strength: Quad Set: fair Treatments: Physical Therapy Exercise Log - 11/27/19 1530 OTHER Precautions/Contraindications 11/02/19 Evaluation PROM 0-30 degrees for one week, 0-45 week two, 0-60 week three, 0-90 week 4 Notes Visit 10: 3:30 - 4:15 PM Therapeutic Exercise ([id number]) Intervention Patient Education provided: POC based on condition specific prognosis. HEP and attendance compliance and importance for improvement of symptoms. 10 min Parameters Knee Flexion PROM x40 min 0- 74 degrees Intervention Heel slides 10 sec x15 Parameters quad sets - 5 sec x30 Intervention glute sets - 5 sec x30 Parameters SLR (Flex, Abd, Ext) - x10 max assist emphasize quad set each Intervention Wall Slides- 20 min Additional Exercises Add more exercises? Yes PT Treatment Times Therex Total Time 45 Direct Treatment Time 45 Total Treatment Time 45 Goals: Physical Therapy Ortho Goals: MOBILITY: Patient will be able to ambulate for 1 hour in community without difficulty in 6 weeks. MOBILITY: Patient will be able to ambulate on uneven surfaces without difficulty in 6 weeks. MOBILITY: Patient will be able to ascend/descend stairs without difficulty in 4 weeks. Impairment: Patient will be able to return to sporting and recreational activities by returning to performing running, jumping, and cutting skills without difficulty in 12 weeks. CHANGING MAINTAINING POSITON: Patient will be able to sit for 1 hour without pain in 4 weeks CHANGING MAINTAINING POSITON: Patient will be able to change position in bed without pain or difficulty in 4 weeks SELF CARE: Patient will be able to complete ADL's including bathing, dressing, and hair care without difficulty in 3 weeks. IMPAIRMENT: Patient will demonstrate improved postural awareness in PT sessions to facilitate mechanical alignment and function in 2 weeks. IMPAIRMENT: Improve pain from 6/10 to 0/10 during WB and ADL activity in 6 weeks IMPAIRMENT: Improve MMT of Right Knee Flexion from 4/5 to 5/5 in 6 weeks IMPAIRMENT: Improve MMT of Right Knee Extension from 4/5 to 5/5 in 6 weeks IMPAIRMENT: Improve PROM of Right Knee Flexion from 24 degrees to 120 degrees in 6 weeks. OTHER: Patient will be able to properly demonstrate independence with HEP in 2 weeks. Patient Education: Quality of movement, HEP Adherence, Diagnosis and recovery specific education and Pain Management with patient demonstrated understanding and verbalized understanding. Post-Treatment Pain Scale: 2 Assessment: Patient had an unexpected response to treatment due to continues to have difficulty with relaxation and allowing PROM.. Skilled Intervention demonstrated by modifications of treatment per exercise log including increased load, increased rate, plane progressions, increased intensity, increased mobility, increased volume and assessment of patient's response and safety interventions per exercise log. Progress towards goals unexpected due to ROM difficulty.. Plan for Next Visit: Treatment Visit with focus on improving ROM, HEP for wall slides was administered at this session. Kimo Rojo PT STATE LICENSE, [id number] documented in this encounter* 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, JORDI - 11/30/2019 3:[address] 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 Clinical Information: Subjective: Pt reports knee is feeling good and has been not wearing immobilizer at home Objective Treatments: Physical Therapy Exercise Log - 11/30/19 1525 OTHER Precautions/Contraindications (S) 11/02/19 Evaluation PROM 0-30 degrees for one week, 0-45 week two,0-60 week three, 0-90 week 4 Notes Visit 11: 3:25 - 4:20 PM Therapeutic Exercise ([id number]) Intervention -- 10 min Parameters Knee Flexion PROM x40 min 0- 74 degrees Intervention Heel slides 10 sec x15 Parameters quad sets - 5 sec x30 Intervention glute sets - 5 sec x30 Parameters SLR (Flex, Abd, Ext) - x10 max assist emphasize quad set each Intervention Wall Slides- 20 min Additional Exercises Add more exercises? Yes Modalities Modalities Vasopneumatic Treatment Parameters x10 min med 34 degrees PT Treatment Times Therex Total Time 45 Modalities Total Time 10 Direct Treatment Time 55 Total Treatment Time 55 Goals: Physical Therapy Ortho Goals: MOBILITY: Patient will be able to ambulate for 1 hour in community without difficulty in 6 weeks. MOBILITY: Patient will be able to ambulate on uneven surfaces without difficulty in 6 weeks. MOBILITY: Patient will be able to ascend/descend stairs without difficulty in 4 weeks. Impairment: Patient will be able to return to sporting and recreational activities by returning to performing running, jumping, and cutting skills without difficulty in 12 weeks. CHANGING MAINTAINING POSITON: Patient will be able to sit for 1 hour without pain in 4 weeks CHANGING MAINTAINING POSITON: Patient will be able to change position in bed without pain or difficulty in 4 weeks SELF CARE: Patient will be able to complete ADL's including bathing, dressing, and hair care without difficulty in 3 weeks. IMPAIRMENT: Patient will demonstrate improved postural awareness in PT sessions to facilitate mechanical alignment and function in 2 weeks. IMPAIRMENT: Improve pain from 6/10 to 0/10 during WB and ADL activity in 6 weeks IMPAIRMENT: Improve MMT of Right Knee Flexion from 4/5 to 5/5 in 6 weeks IMPAIRMENT: Improve MMT of Right Knee Extension from 4/5 to 5/5 in 6 weeks IMPAIRMENT: Improve PROM of Right Knee Flexion from 24 degrees to 120 degrees in 6 weeks. OTHER: Patient will be able to properly demonstrate independence with HEP in 2 weeks. Patient Education: Quality of movement with patient demonstrated understanding. Post-Treatment Pain Scale: 3 Assessment: Patient had an expected response to treatment. Skilled Intervention demonstrated by modifications of treatment per exercise log including increased load and safety interventions per exercise log. Progress towards goals as expected. Plan for Next Visit: Treatment Visit with focus on ROM 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 PTA STATE LICENSE, [id number] documented in this encounter* 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 PTA - 12/03/2019 3:[address] [facility] DAILY TREATMENT NOTE Today's Date 12/03/2019 Patient Name: Ethan Hernandez Date of : 2005 Current Visit #: 12 Authorized Visits: 30 Case Name: Right Knee PFPS History: Pre-Treatment Pain Scale: 0 Symptoms: gradually improved Functional Diagnosis: 1. Instability of right patellofemoral joint Clinical Information: Subjective: Pt reports being able to lock Objective Treatments: Physical Therapy Exercise Log - 12/03/19 1530 OTHER Precautions/Contraindications (S) 11/02/19 Evaluation PROM 0-30 degrees for one week, 0-45 week two,0-60 week three, 0-90 week 4 Notes Visit 12: 3:25 - 4:15 PM Therapeutic Exercise ([id number]) Intervention -- 10 min Parameters Knee Flexion PROM x40 min 0- 74 degrees Intervention Heel slides 10 sec x15 Parameters quad sets - 5 sec x30 Intervention glute sets - 5 sec x30 Parameters SLR (Flex, Abd, Ext) - x10 max assist emphasize quad set each Intervention Wall Slides- 20 min Additional Exercises Add more exercises? Yes Modalities Modalities -- Parameters x10 min med 34 degrees PT Treatment Times Therex Total Time 45 Direct Treatment Time 45 Total Treatment Time 45 Goals: Physical Therapy Ortho Goals: MOBILITY: Patient will be able to ambulate for 1 hour in community without difficulty in 6 weeks. MOBILITY: Patient will be able to ambulate on uneven surfaces without difficulty in 6 weeks. MOBILITY: Patient will be able to ascend/descend stairs without difficulty in 4 weeks. Impairment: Patient will be able to return to sporting and recreational activities by returning to performing running, jumping, and cutting skills without difficulty in 12 weeks. CHANGING MAINTAINING POSITON: Patient will be able to sit for 1 hour without pain in 4 weeks CHANGING MAINTAINING POSITON: Patient will be able to change position in bed without pain or difficulty in 4 weeks SELF CARE: Patient will be able to complete ADL's including bathing, dressing, and hair care without difficulty in 3 weeks. IMPAIRMENT: Patient will demonstrate improved postural awareness in PT sessions to facilitate mechanical alignment and function in 2 weeks. IMPAIRMENT: Improve pain from 6/10 to 0/10 during WB and ADL activity in 6 weeks IMPAIRMENT: Improve MMT of Right Knee Flexion from 4/5 to 5/5 in 6 weeks IMPAIRMENT: Improve MMT of Right Knee Extension from 4/5 to 5/5 in 6 weeks IMPAIRMENT: Improve PROM of Right Knee Flexion from 24 degrees to 120 degrees in 6 weeks. OTHER: Patient will be able to properly demonstrate independence with HEP in 2 weeks. Patient Education: Quality of movement with patient demonstrated understanding. Post-Treatment Pain Scale: 5 Assessment: Patient had an expected response to treatment. Skilled Intervention demonstrated by modifications of treatment per exercise log including increased load and safety interventions per exercise log. Progress towards goals as expected. Plan for Next Visit: Treatment Visit with focus on ROM and flexability 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 PTA STATE LICENSE, [id number] documented in this encounter* 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 PTA - 12/07/2019 3:[address] [facility] DAILY TREATMENT NOTE Today's Date 12/07/2019 Patient Name: Ethan Hernandez Date of : 2005 Current Visit #: 13 Authorized Visits: 30 Case Name: Right Knee PFPS History: Pre-Treatment Pain Scale: 2 Symptoms: gradually improved Functional Diagnosis: 1. Instability of right patellofemoral joint Clinical Information: Subjective: Pt reports compliance with HEP and states been doing standing with no immobilizer per Dr. Staley, able to lock knee out when standing. Objective Pt able to flex knee to 90 with wall slide after 20 min of stretching. Treatments: Physical Therapy Exercise Log - 12/07/19 1530 OTHER Precautions/Contraindications 11/02/19 Evaluation PROM 0-30 degrees for one week, 0-45 week two, 0-60 week three, 0-90 week 4 Notes Visit 13: 3:30 - 4:15 PM Therapeutic Exercise ([id number]) Intervention PROM/Osscillations - x10 min 10 min Parameters Knee Flexion PROM x40 min 0- 88 degrees Intervention Heel slides 10 sec x15 Parameters quad sets - 5 sec x30 Intervention glute sets - 5 sec x30 Parameters SLR (Flex, Abd, Ext) - x10 mmin assist emphasize quad set each Intervention Wall Slides- 20 min up to 90 degrees flexion Parameters Sink ex with empohasis on locking knee out - x10 Additional Exercises Add more exercises? Yes Modalities Parameters x10 min med 34 degrees PT Treatment Times Therex Total Time 45 Direct Treatment Time 45 Total Treatment Time 45 Goals: Physical Therapy Ortho Goals: MOBILITY: Patient will be able to ambulate for 1 hour in community without difficulty in 6 weeks. MOBILITY: Patient will be able to ambulate on uneven surfaces without difficulty in 6 weeks. MOBILITY: Patient will be able to ascend/descend stairs without difficulty in 4 weeks. Impairment: Patient will be able to return to sporting and recreational activities by returning to performing running, jumping, and cutting skills without difficulty in 12 weeks. CHANGING MAINTAINING POSITON: Patient will be able to sit for 1 hour without pain in 4 weeks CHANGING MAINTAINING POSITON: Patient will be able to change position in bed without pain or difficulty in 4 weeks SELF CARE: Patient will be able to complete ADL's including bathing, dressing, and hair care without difficulty in 3 weeks. IMPAIRMENT: Patient will demonstrate improved postural awareness in PT sessions to facilitate mechanical alignment and function in 2 weeks. IMPAIRMENT: Improve pain from 6/10 to 0/10 during WB and ADL activity in 6 weeks IMPAIRMENT: Improve MMT of Right Knee Flexion from 4/5 to 5/5 in 6 weeks IMPAIRMENT: Improve MMT of Right Knee Extension from 4/5 to 5/5 in 6 weeks IMPAIRMENT: Improve PROM of Right Knee Flexion from 24 degrees to 120 degrees in 6 weeks. OTHER: Patient will be able to properly demonstrate independence with HEP in 2 weeks. Patient Education: Quality of movement with patient demonstrated understanding. Post-Treatment Pain Scale: 2 Assessment: Patient had an expected response to treatment. Skilled Intervention demonstrated by modifications of treatment per exercise log including increased load and increased rate and safety interventions per exercise log. Progress towards goals as expected. Plan for Next Visit: Treatment Visit with focus on ROM 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 PTA STATE LICENSE, [id number] documented in this encounter* 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 PTA - 12/10/2019 4:[address] [facility] DAILY TREATMENT NOTE Today's Date 12/10/2019 Patient Name: Ethan Hernandez Date of : 2005 Current Visit #: 14 Authorized Visits: 30 Case Name: Right Knee PFPS History: Pre-Treatment Pain Scale: 0 Symptoms: gradually improved Functional Diagnosis: 1. Instability of right patellofemoral joint Clinical Information: Subjective: Pt reports knee feeling good with no pain and compliant with HEP. Pt states been walking around house without brace and without crutches. Objective Treatments: Physical Therapy Exercise Log - 12/10/19 1615 OTHER Precautions/Contraindications 11/02/19 Evaluation PROM 0-30 degrees for one week, 0-45 week two, 0-60 week three, 0-90 week 4 Notes Visit 14: 4:15 - 5:00 PM Therapeutic Exercise ([id number]) Intervention Nustep - next visit 10 min Parameters Knee Flexion PROM/Oscillations x20 min 0- 93 degrees Intervention Wall Slides- 20 min up to 90 degrees flexion Parameters quad sets - 5 sec x30 Intervention SLR (Flex, Abd, Ext) - x20 Parameters LAQ / SAQ - x20 Intervention lat ambulation - 6' (plinth) x4 Parameters Sink ex with empohasis on locking knee out - x15 (no squats) Intervention TKE - 5 sec x10 Parameters Ambulation with single crutch and no brace - x5 min Intervention -- Parameters -- Additional Exercises Add more exercises? Yes Modalities Parameters -- PT Treatment Times Therex Total Time 45 Direct Treatment Time 45 Total Treatment Time 45 Goals: Physical Therapy Ortho Goals: MOBILITY: Patient will be able to ambulate for 1 hour in community without difficulty in 6 weeks. MOBILITY: Patient will be able to ambulate on uneven surfaces without difficulty in 6 weeks. MOBILITY: Patient will be able to ascend/descend stairs without difficulty in 4 weeks. Impairment: Patient will be able to return to sporting and recreational activities by returning to performing running, jumping, and cutting skills without difficulty in 12 weeks. CHANGING MAINTAINING POSITON: Patient will be able to sit for 1 hour without pain in 4 weeks CHANGING MAINTAINING POSITON: Patient will be able to change position in bed without pain or difficulty in 4 weeks SELF CARE: Patient will be able to complete ADL's including bathing, dressing, and hair care without difficulty in 3 weeks. IMPAIRMENT: Patient will demonstrate improved postural awareness in PT sessions to facilitate mechanical alignment and function in 2 weeks. IMPAIRMENT: Improve pain from 6/10 to 0/10 during WB and ADL activity in 6 weeks IMPAIRMENT: Improve MMT of Right Knee Flexion from 4/5 to 5/5 in 6 weeks IMPAIRMENT: Improve MMT of Right Knee Extension from 4/5 to 5/5 in 6 weeks IMPAIRMENT: Improve PROM of Right Knee Flexion from 24 degrees to 120 degrees in 6 weeks. OTHER: Patient will be able to properly demonstrate independence with HEP in 2 weeks. Patient Education: Quality of movement with patient demonstrated understanding. Post-Treatment Pain Scale: 0 Assessment: Patient had an expected response to treatment. Skilled Intervention demonstrated by modifications of treatment per exercise log including increased load and increased rate and safety interventions per exercise log. Progress towards goals as expected. Plan for Next Visit: Treatment Visit with focus on ROM and quad strengthening 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 PTA STATE LICENSE, [id number] documented in this encounter* 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 PTA - 12/11/2019 3:[address] [facility] DAILY TREATMENT NOTE Today's Date 12/11/2019 Patient Name: Ethan Hernandez Date of : 2005 Current Visit #: 15 Authorized Visits: 30 Case Name: Right Knee PFPS History: Pre-Treatment Pain Scale: 2 Symptoms: gradually improved Functional Diagnosis: 1. Instability of right patellofemoral joint Clinical Information: Subjective: Pt reports more sore today and has some swelling in knee today. Pt been ambulating around house with no brace and reports compliance with HEP Objective Treatments: Physical Therapy Exercise Log - 12/11/19 1526 OTHER Precautions/Contraindications 11/02/19 Evaluation PROM 0-30 degrees for one week, 0-45 week two, 0-60 week three, 0-90 week 4 Notes Visit 15: 3:26 - 4:15 PM Therapeutic Exercise ([id number]) Intervention Nustep - next visit 10 min Parameters Knee Flexion PROM/Oscillations x20 min 0- 93 degrees Intervention Wall Slides- 20 min up to 90 degrees flexion Parameters quad sets - 5 sec x30 Intervention SLR (Flex, Abd, Ext) - x20 Parameters LAQ / SAQ - x20 Intervention lat ambulation - 6' (plinth) x4 Parameters Sink ex with empohasis on locking knee out - x15 (no squats) Intervention -- Parameters -- Additional Exercises Add more exercises? Yes PT Treatment Times Therex Total Time 49 Direct Treatment Time 49 Total Treatment Time 49 Goals: Physical Therapy Ortho Goals: MOBILITY: Patient will be able to ambulate for 1 hour in community without difficulty in 6 weeks. MOBILITY: Patient will be able to ambulate on uneven surfaces without difficulty in 6 weeks. MOBILITY: Patient will be able to ascend/descend stairs without difficulty in 4 weeks. Impairment: Patient will be able to return to sporting and recreational activities by returning to performing running, jumping, and cutting skills without difficulty in 12 weeks. CHANGING MAINTAINING POSITON: Patient will be able to sit for 1 hour without pain in 4 weeks CHANGING MAINTAINING POSITON: Patient will be able to change position in bed without pain or difficulty in 4 weeks SELF CARE: Patient will be able to complete ADL's including bathing, dressing, and hair care without difficulty in 3 weeks. IMPAIRMENT: Patient will demonstrate improved postural awareness in PT sessions to facilitate mechanical alignment and function in 2 weeks. IMPAIRMENT: Improve pain from 6/10 to 0/10 during WB and ADL activity in 6 weeks IMPAIRMENT: Improve MMT of Right Knee Flexion from 4/5 to 5/5 in 6 weeks IMPAIRMENT: Improve MMT of Right Knee Extension from 4/5 to 5/5 in 6 weeks IMPAIRMENT: Improve PROM of Right Knee Flexion from 24 degrees to 120 degrees in 6 weeks. OTHER: Patient will be able to properly demonstrate independence with HEP in 2 weeks. Patient Education: Quality of movement with patient demonstrated understanding. Post-Treatment Pain Scale: 2 Assessment: Patient had an expected response to treatment. Skilled Intervention demonstrated by modifications of treatment per exercise log including increased load and safety interventions per exercise log. Progress towards goals as expected. Plan for Next Visit: Treatment Visit with focus on aggressive stretching and ROM per protocol 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 PTA STATE LICENSE, [id number] documented in this encounter* 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 PTA - 12/14/2019 3:[address] [facility] DAILY TREATMENT NOTE Today's Date 12/14/2019 Patient Name: Ethan Hernandez Date of : 2005 Current Visit #: 16 Authorized Visits: 30 Case Name: Right Knee PFPS History: Pre-Treatment Pain Scale: 0 Symptoms: gradually improved Functional Diagnosis: 1. Instability of right patellofemoral joint Clinical Information: Subjective: Pt reports knee was really swollen over weekend and stated it was a little better today. Compliant with HEP but flex stretch not going easy Objective Treatments: Physical Therapy Exercise Log - 12/14/19 1525 OTHER Precautions/Contraindications 11/02/19 Evaluation PROM 0-30 degrees for one week, 0-45 week two, 0-60 week three, 0-90 week 4 Notes Visit 16: 3:30 - 4:25 PM Therapeutic Exercise ([id number]) Intervention Step Stretches - 20 sec x5 10 min Parameters Knee Flexion PROM/Oscillations x20 min 0- 97 degrees Intervention Wall Slides- 20 min up to 90 degrees flexion Parameters quad sets - 5 sec x30 Intervention SLR (Flex, Abd, Ext) - x30 Parameters LAQ / SAQ - x20 Intervention lat ambulation - 6' (plinth) x4 Parameters Sink ex with empohasis on locking knee out - x15 (no squats) Additional Exercises Add more exercises? Yes PT Treatment Times Therex Total Time 50 Direct Treatment Time 50 Total Treatment Time 50 Goals: Physical Therapy Ortho Goals: MOBILITY: Patient will be able to ambulate for 1 hour in community without difficulty in 6 weeks. MOBILITY: Patient will be able to ambulate on uneven surfaces without difficulty in 6 weeks. MOBILITY: Patient will be able to ascend/descend stairs without difficulty in 4 weeks. Impairment: Patient will be able to return to sporting and recreational activities by returning to performing running, jumping, and cutting skills without difficulty in 12 weeks. CHANGING MAINTAINING POSITON: Patient will be able to sit for 1 hour without pain in 4 weeks CHANGING MAINTAINING POSITON: Patient will be able to change position in bed without pain or difficulty in 4 weeks SELF CARE: Patient will be able to complete ADL's including bathing, dressing, and hair care without difficulty in 3 weeks. IMPAIRMENT: Patient will demonstrate improved postural awareness in PT sessions to facilitate mechanical alignment and function in 2 weeks. IMPAIRMENT: Improve pain from 6/10 to 0/10 during WB and ADL activity in 6 weeks IMPAIRMENT: Improve MMT of Right Knee Flexion from 4/5 to 5/5 in 6 weeks IMPAIRMENT: Improve MMT of Right Knee Extension from 4/5 to 5/5 in 6 weeks IMPAIRMENT: Improve PROM of Right Knee Flexion from 24 degrees to 120 degrees in 6 weeks. OTHER: Patient will be able to properly demonstrate independence with HEP in 2 weeks. Patient Education: Quality of movement with patient demonstrated understanding. Post-Treatment Pain Scale: 4 Assessment: Patient had an expected response to treatment. Skilled Intervention demonstrated by modifications of treatment per exercise log including increased load and safety interventions per exercise log. Progress towards goals as expected. Plan for Next Visit: Treatment Visit with focus on ROM per protocol 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 PTA STATE LICENSE, [id number] documented in this encounter* Siena Berry LPN - 12/17/2019 9:20 AM EDT Nurse Note: Review of Systems Constitutional: Negative for fatigue, fever and unexpected weight change. HENT: Negative for dental problem, ear pain, hearing loss, sore throat and trouble swallowing. Eyes: Negative for visual disturbance. Respiratory: Negative for cough, chest tightness and shortness of breath. Cardiovascular: Negative for chest pain, palpitations and leg swelling. Gastrointestinal: Positive for constipation. Negative for abdominal pain, blood in stool and diarrhea. Endocrine: Negative. Genitourinary: Negative for dysuria, frequency and urgency. Musculoskeletal: Positive for arthralgias, joint swelling (right knee ) and myalgias. Negative for back pain and gait problem. Skin: Negative for rash. Allergic/Immunologic: Negative for environmental allergies. Neurological: Negative for dizziness, speech difficulty, weakness, light- headedness and headaches. Psychiatric/Behavioral: Negative for confusion, dysphoric mood and sleep disturbance. The patient is not nervous/anxious. Nursing Assessment: Physical Exam * Milton Leos MD - 12/17/2019 9:20 AM EDT Associated Order(s): OK VISUAL SCREENING TEST, BILAT Pre-Procedure Diagnose(s): Encounter for routine child health examination without abnormal findings Post-Procedure Diagnose(s): Encounter for routine child health examination without abnormal findings Adolescent Well Child Adults here with child: Mom Hilda Patient aware of confidentiality with physician (excluding self harm): yes Current Issues/Concerns: no, she needs a work slip for her job at [employer]. Dr. Joy s/p right knee surgery 10/14/2019 [facility], Cardiology She will start counseling tomorrow through [facility] Review of Nutrition: not eating well, she had diarrhea 2 weeks ago. Dietary Supplements: no Any sleeping difficulties: she has problems falling asleep. Any Elimination concerns: occasional constipation Brushing teeth: yes Dental visits: 3rd [facility] [place], Dr. Landrum [place], Quality Control Inspector [place] Vision screening/concerns:no glasses, no vision concerns Hearing screening/concerns: no concerns If female, LMP 12/03/2019, menstrual history heavy periods, she has IUD Psychosocial Review: Home - who lives with the patient: mom, brother Any concerns about home life: no Education - what school and grade: [employer] Grades/Academic achievement: good, she is enrolled in post-secondary option. Future academic/employment plans: college for biology vs. literature Activities pt is interested/involved in: none Has patient ever tried smoking, alcohol, or drugs: no Are friends using tobacco, alcohol, or drugs: no Has the patient ever had sex: no How is his/her mood? Any attempts or thoughts about suicide: not currently Review of Systems: Nurse Note: Review of Systems Constitutional: Negative for fatigue, fever and unexpected weight change. HENT: Negative for dental problem, ear pain, hearing loss, sore throat and trouble swallowing. Eyes: Negative for visual disturbance. Respiratory: Negative for cough, chest tightness and shortness of breath. Cardiovascular: Negative for chest pain, palpitations and leg swelling. Gastrointestinal: Positive for constipation. Negative for abdominal pain, blood in stool and diarrhea. Endocrine: Negative. Genitourinary: Negative for dysuria, frequency and urgency. Musculoskeletal: Positive for arthralgias, joint swelling (right knee ) and myalgias. Negative for back pain and gait problem. Skin: Negative for rash. Allergic/Immunologic: Negative for environmental allergies. Neurological: Negative for dizziness, speech difficulty, weakness, light- headedness and headaches. Psychiatric/Behavioral: Negative for confusion, dysphoric mood and sleep disturbance. The patient is not nervous/anxious. Nursing Assessment: Physical Exam Physical Exam: Blood pressure 104/70, pulse 104, temperature 97.8 F (36.6 C), temperature source Temporal, resp. rate 20, height 1.735 m (5' 8.31), weight 68.3 kg (150 lb 8 oz), last menstrual period 12/03/2019, SpO2 98 %, not currently . Blood pressure reading is in the normal blood pressure range based on the 2017 AAP Clinical Practice Guideline. General: alert, well-appearing, no acute distress Head: normocephalic, atraumatic Eyes: no eyelid swelling, no conjunctival injection, PERRL Ears: no external swelling or tenderness, canals clear, tympanic membranes normal in appearance andposition Nose: nares patent, normal mucosa Mouth/Throat: mucous membranes moist, no focal lesions, no tonsillar enlargement or exudate Neck: nontender, full range of motion, no mass, no focal lymphadenopathy Back: nontender, no deformity, no defect Chest/Lungs: breath sounds clear and equal bilaterally, no respiratory distress Cardiovascular: regular rate and rhythm, no murmur Abdomen: soft, nontender, nondistended, no hepatosplenomegaly, no mass, normal bowel sounds Genitalia: deferred Extremities: nontender, no deformity,brace on right knee Skin: warm, dry, no rash, no lesions. Acne Neurologic: alert, normal tone, no focal deficit Impression: Well 14 y.o. 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 Plan for urine GC/Chlamydia and Trichomonas testing today. Vision screen appropriate Anticipatory guidance including advice regarding activity, nutrition, avoidance of drugs, alcohol, and tobacco, recommendation toward abstinence but safe sex discussed, car safety, and helmets discussed The following safety and parenting topics were discussed today: -Get adequate sleep (8-10 hours/night). -Exercise regularly, eat a healthy diet. -You should have a dental visit every 6 months. Immunization Instructions: Mild reactions include: soreness, redness and swelling at the shot site,low-grade fever (less than 101) and do NOT require follow-up with a doctor. Moderate to severe reactions, which occur rarely, include: difficulty breathing, wheezing or hoarseness, hives, paleness, we akness, a fast heart beat or dizziness, and DO require prompt follow-up with a doctor. Return to clinic in 1 year for well visit. Immunizations Today I have counseled the caregiver(s) present regarding the benefits and known risks of the vaccines recommended per the [place] [employer] and Center for Disease Control. Based on this discussion, the following immunizations were ordered: See orders for today's visit. OK VISUAL SCREENING TEST, BILAT Performed by: Milton Leos MD Authorized by: Milton Leos MD [place] Protocol Immediately prior to procedure a time out was called to verify the correct patient, procedure, equipment, application support engineer and site/side marked as required. Additional Notes Vision normal, see screenings tab documented in this encounter* 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, COR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 - 12/31/2019 2:[address] 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 Pt also reports no falls and getting cupped which has helped with increased ROM. Objective Treatments: Physical Therapy Exercise Log - 12/31/19 1450 OTHER Precautions/Contraindications (S) 11/02/19 (No Lunges per Dr. Miguel 12/24/19) Notes Visit 22: 2:50 - 3:35 PM Therapeutic Exercise ([id number]) Intervention Nustep - x5 min L5 Parameters Step Stretches - 20 sec x5 (to 111 degrees with lunges) Intervention lat ambulation - 40' x4 Parameters TKE - x10 5 sec hold Intervention Wall squats - x10 OTB Parameters Step ups - x15 fwd/lat 4 step Intervention Rockerboard - x20 fwd/lat Parameters Sink ex on airex- x20 Intervention Steamboats - x10 L3 Parameters Shuttle squats x15 50# Intervention LAQ - x20 YTB / HS curl - x20 RTB Parameters Knee Flexion PROM/Oscillations- x5 min 0- 113 degrees Additional Exercises Add more exercises? Yes PT Treatment Times Therex Total Time 45 Direct Treatment Time 45 Total Treatment Time 45 Goals: Physical Therapy Ortho Goals: MOBILITY: Patient will be able to ambulate for 1 hour in community without difficulty in 6 weeks. MOBILITY: Patient will be able to ambulate on uneven surfaces without difficulty in 6 weeks. MOBILITY: Patient will be able to ascend/descend stairs without difficulty in 4 weeks. Impairment: Patient will be able to return to sporting and recreational activities by returning to performing running, jumping, and cutting skills without difficulty in 12 weeks. CHANGING MAINTAINING POSITON: Patient will be able to sit for 1 hour without pain in 4 weeks CHANGING MAINTAINING POSITON: Patient will be able to change position in bed without pain or difficulty in 4 weeks SELF CARE: Patient will be able to complete ADL's including bathing, dressing, and hair care without difficulty in 3 weeks. IMPAIRMENT: Patient will demonstrate improved postural awareness in PT sessions to facilitate mechanical alignment and function in 2 weeks. IMPAIRMENT: Improve pain from 6/10 to 0/10 during WB and ADL activity in 6 weeks IMPAIRMENT: Improve MMT of Right Knee Flexion from 4/5 to 5/5 in 6 weeks IMPAIRMENT: Improve MMT of Right Knee Extension from 4/5 to 5/5 in 6 weeks IMPAIRMENT: Improve PROM of Right Knee Flexion from 24 degrees to 120 degrees in 6 weeks. OTHER: Patient will be able to properly demonstrate independence with HEP in 2 weeks. Patient Education: Quality of movement with patient demonstrated understanding. Post-Treatment Pain Scale: 0 Assessment: Patient had an expected response to treatment. Skilled Intervention demonstrated by modifications of treatment per exercise log including increased load and increased rate and safety interventions per exercise log. Progress towards goals as expected. Plan for Next Visit: Treatment Visit with focus on strengthening and ROM progression 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 PTA STATE LICENSE, [id number] documented in this encounter* 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 PTA - 01/01/2020 2:[address] 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 Objective Treatments: Physical Therapy Exercise Log - 01/01/20 1445 OTHER Precautions/Contraindications (S) 11/02/19 (No Lunges per Dr. Miguel 12/24/19) Notes Visit 23: 2:45 - 3:30 PM Therapeutic Exercise ([id number]) Intervention Nustep - x5 min L5 Parameters Step Stretches - 20 sec x5 (to 115 degrees with lunges) Intervention lat ambulation - 40' x4 Parameters TKE - x10 5 sec hold Intervention Wall squats - x15 OTB Parameters Step ups - x15 fwd/lat 6 step Intervention Rockerboard - x20 fwd/lat Parameters Sink ex on airex- x20 Intervention Steamboats - x15 L3 Parameters Shuttle squats x15 50# Intervention LAQ - x20 YTB / HS curl - x20 RTB Parameters Knee Flexion PROM/Oscillations- x5 min 0- 113 degrees Additional Exercises Add more exercises? Yes PT Treatment Times Therex Total Time 45 Direct Treatment Time 45 Total Treatment Time 45 Goals: Physical Therapy Ortho Goals: MOBILITY: Patient will be able to ambulate for 1 hour in community without difficulty in 6 weeks. MOBILITY: Patient will be able to ambulate on uneven surfaces without difficulty in 6 weeks. MOBILITY: Patient will be able to ascend/descend stairs without difficulty in 4 weeks. Impairment: Patient will be able to return to sporting and recreational activities by returning to performing running, jumping, and cutting skills without difficulty in 12 weeks. CHANGING MAINTAINING POSITON: Patient will be able to sit for 1 hour without pain in 4 weeks CHANGING MAINTAINING POSITON: Patient will be able to change position in bed without pain or difficulty in 4 weeks SELF CARE: Patient will be able to complete ADL's including bathing, dressing, and hair care without difficulty in 3 weeks. IMPAIRMENT: Patient will demonstrate improved postural awareness in PT sessions to facilitate mechanical alignment and function in 2 weeks. IMPAIRMENT: Improve pain from 6/10 to 0/10 during WB and ADL activity in 6 weeks IMPAIRMENT: Improve MMT of Right Knee Flexion from 4/5 to 5/5 in 6 weeks IMPAIRMENT: Improve MMT of Right Knee Extension from 4/5 to 5/5 in 6 weeks IMPAIRMENT: Improve PROM of Right Knee Flexion from 24 degrees to 120 degrees in 6 weeks. OTHER: Patient will be able to properly demonstrate independence with HEP in 2 weeks. Patient Education: Quality of movement with patient demonstrated understanding. Post-Treatment Pain Scale: 2 Assessment: Patient had an expected response to treatment. Skilled Intervention demonstrated by modifications of treatment per exercise log including increased load and safety interventions per exercise log. Progress towards goals as expected. Plan for Next Visit: Treatment Visit with focus on ROM and strengthening as tolerated 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 PTA STATE LICENSE, [id number] documented in this encounter* Natali Hope PTA - 01/05/2020 2:[address] 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 Objective Treatments: Physical Therapy Exercise Log - 01/05/20 1445 OTHER Precautions/Contraindications (S) 11/02/19 (No Lunges per Dr. Miguel 12/24/19) Notes Visit 24: 2:45 - 3:30 PM Therapeutic Exercise ([id number]) Intervention Nustep - x5 min L5 Parameters Step Stretches - 20 sec x5 (to 115 degrees with lunges) Intervention lat ambulation - 40' x4 Parameters TKE - x10 5 sec hold Intervention Wall squats - x15 OTB Parameters Step ups - x15 fwd/lat 6 step Intervention Rockerboard - x20 fwd/lat Parameters Sink ex on airex- x20 Intervention Steamboats - x20 L3 bilat Parameters Shuttle squats x20 50# Intervention LAQ - x20 YTB / HS curl - x20 RTB Parameters Knee Flexion PROM/Oscillations- x5 min 0- 115 degrees Additional Exercises Add more exercises? Yes PT Treatment Times Therex Total Time 45 Direct Treatment Time 45 Total Treatment Time 45 Goals: Physical Therapy Ortho Goals: MOBILITY: Patient will be able to ambulate for 1 hour in community without difficulty in 6 weeks. MOBILITY: Patient will be able to ambulate on uneven surfaces without difficulty in 6 weeks. MOBILITY: Patient will be able to ascend/descend stairs without difficulty in 4 weeks. Impairment: Patient will be able to return to sporting and recreational activities by returning to performing running, jumping, and cutting skills without difficulty in 12 weeks. CHANGING MAINTAINING POSITON: Patient will be able to sit for 1 hour without pain in 4 weeks CHANGING MAINTAINING POSITON: Patient will be able to change position in bed without pain or difficulty in 4 weeks SELF CARE: Patient will be able to complete ADL's including bathing, dressing, and hair care without difficulty in 3 weeks. IMPAIRMENT: Patient will demonstrate improved postural awareness in PT sessions to facilitate mechanical alignment and function in 2 weeks. IMPAIRMENT: Improve pain from 6/10 to 0/10 during WB and ADL activity in 6 weeks IMPAIRMENT: Improve MMT of Right Knee Flexion from 4/5 to 5/5 in 6 weeks IMPAIRMENT: Improve MMT of Right Knee Extension from 4/5 to 5/5 in 6 weeks IMPAIRMENT: Improve PROM of Right Knee Flexion from 24 degrees to 120 degrees in 6 weeks. OTHER: Patient will be able to properly demonstrate independence with HEP in 2 weeks. Patient Education: Quality of movement and Verbal HEP with patient demonstrated understanding and verbalized understanding. Post-Treatment Pain Scale: 0 Assessment: Patient had an expected response to treatment. Skilled Intervention demonstrated by modifications of treatment per exercise log including increased volume and assessment of patient's response and safety interventions per exercise log. Progress towards goals as expected. Plan for Next Visit: Treatment Visit with focus on ROM and strength Natali Hope PTA STATE LICENSE, [id number] documented in this encounter* Natali Hope PTA - 01/12/2020 2:[address] 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 When I activate the muscles, it doesn't feel normal. Objective Knee Right Knee Range of Motion: Flexion Passive: 124 (seated at edge of plinth) Treatments: Physical Therapy Exercise Log - 01/12/20 1445 OTHER Precautions/Contraindications (S) 11/02/19 (No Lunges per Dr. Migule 12/24/19) Notes Visit 26: 2:45 - 3:30 PM Therapeutic Exercise ([id number]) Intervention Bike - x5 min L5 seat 10 Parameters Step Stretches - 20 sec x5 Intervention lat ambulation - 40' x4 Parameters TKE - x10 5 sec hold Intervention Wall squats - x15 OTB Parameters BOSU step ups - x20 fwd/lat Intervention BOSU Rockerboard - x20 fwd/lat Parameters Sink ex on airex- x20 bilat without UE for balance Intervention Steamboats - x20 L3 bilat Parameters Shuttle squats x20 50# Intervention LAQ - x20 YTB / HS curl - x20 RTB Parameters BOSU squats - x25 Additional Exercises Add more exercises? Yes PT Treatment Times Therex Total Time 45 Direct Treatment Time 45 Total Treatment Time 45 Goals: Physical Therapy Ortho Goals: MOBILITY: Patient will be able to ambulate for 1 hour in community without difficulty in 6 weeks. MOBILITY: Patient will be able to ambulate on uneven surfaces without difficulty in 6 weeks. MOBILITY: Patient will be able to ascend/descend stairs without difficulty in 4 weeks. Impairment: Patient will be able to return to sporting and recreational activities by returning to performing running, jumping, and cutting skills without difficulty in 12 weeks. CHANGING MAINTAINING POSITON: Patient will be able to sit for 1 hour without pain in 4 weeks CHANGING MAINTAINING POSITON: Patient will be able to change position in bed without pain or difficulty in 4 weeks SELF CARE: Patient will be able to complete ADL's including bathing, dressing, and hair care without difficulty in 3 weeks. IMPAIRMENT: Patient will demonstrate improved postural awareness in PT sessions to facilitate mechanical alignment and function in 2 weeks. IMPAIRMENT: Improve pain from 6/10 to 0/10 during WB and ADL activity in 6 weeks IMPAIRMENT: Improve MMT of Right Knee Flexion from 4/5 to 5/5 in 6 weeks IMPAIRMENT: Improve MMT of Right Knee Extension from 4/5 to 5/5 in 6 weeks IMPAIRMENT: Improve PROM of Right Knee Flexion from 24 degrees to 120 degrees in 6 weeks. OTHER: Patient will be able to properly demonstrate independence with HEP in 2 weeks. Patient Education: Quality of movement and Verbal HEP with patient demonstrated understanding and verbalized understanding. Post-Treatment Pain Scale: 0 Assessment: Patient had an expected response to treatment. Skilled Intervention demonstrated by modifications of treatment per exercise log including increased load, increased intensity, increased mobility, increased volume and assessment of patient's response and safety interventions per exercise log. Progress towards goals as expected and instability noted bilaterally with SINK ex on Airex without UE assist for balance. Plan for Next Visit: Treatment Visit with focus on strength and stability. Natali Hope PTA STATE LICENSE, [id number] documented in this encounter* Lam Jorge, PT - 01/22/2020 2:[address] 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 Objective Treatments: Physical Therapy Exercise Log - 01/22/20 1445 OTHER Precautions/Contraindications 11/02/19 (No Lunges per Dr. Miguel 12/24/19) Notes Visit 29: 2:45-3:25PM Therapeutic Exercise ([id number]) Intervention Bike - x5 min L5 seat 10 Parameters Step Stretches - 20 sec x5 Intervention lat ambulation - 40' x4 Parameters TKE - x10 5 sec hold Intervention Wall squats - x15 OTB Parameters BOSU step ups - x20 fwd/lat Intervention BOSU Rockerboard - x20 fwd/lat Parameters Ant step downs- 4in and 6in 2x10 R stance Intervention Steamboats - x20 L3 bilat Parameters Shuttle squats x20 50# (hold 01-19-20 due to increased popping) Intervention LAQ - x20 YTB / HS curl - x20 RTB Parameters BOSU squats - x25 Additional Exercises Add more exercises? Yes PT Treatment Times Therex Total Time 40 Direct Treatment Time 40 Total Treatment Time 40 Goals: Physical Therapy Ortho Goals: MOBILITY: Patient will be able to ambulate for 1 hour in community without difficulty in 6 weeks. (01/22/20, MET Can walk over an hour but needs occasional break) MOBILITY: Patient will be able to ambulate on uneven surfaces without difficulty in 6 weeks. (01/22/20, PARTIALLY MET Pt can walk on uneven surfaces, but not steep hills) MOBILITY: Patient will be able to ascend/descend stairs without difficulty in 4 weeks. (01/22/20, Partially MET, can not descend stairs reciprocally yet) Impairment: Patient will be able to return to sporting and recreational activities by returning to performing running, jumping, and cutting skills without difficulty in 12 weeks. (01/22/20, In Progress Pt is unable to do advanced sporting activity yet) CHANGING MAINTAINING POSITON: Patient will be able to sit for 1 hour without pain in 4 weeks ( 01/22/20, MET able to sit up for 1 hour) CHANGING MAINTAINING POSITON: Patient will be able to change position in bed without pain or difficulty in 4 weeks (01/22/20, MET) SELF CARE: Patient will be able to complete ADL's including bathing, dressing, and hair care without difficulty in 3 weeks. (01/22/20, MET) IMPAIRMENT: Patient will demonstrate improved postural awareness in PT sessions to facilitate mechanical alignment and function in 2 weeks. (01/22/20, MET) IMPAIRMENT: Improve pain from 6/10 to 0/10 during WB and ADL activity in 6 weeks (01/22/20, Partially MET, 1/10 on avg, but gets up to 5/10) IMPAIRMENT: Improve MMT of Right Knee Flexion from 4/5 to 5/5 in 6 weeks (01/22/20, Partially MET 4+/5) IMPAIRMENT: Improve MMT of Right Knee Extension from 4/5 to 5/5 in 6 weeks (01/22/20, Partially Met4+/5) IMPAIRMENT: Improve PROM of Right Knee Flexion from 24 degrees to 120 degrees in 6 weeks. (01/22/20, MET 0-135 deg) OTHER: Patient will be able to properly demonstrate independence with HEP in 2 weeks. (01/22/20, MET I with HEP) Patient Education: Quality of movement and Verbal HEP with patient demonstrated understanding and verbalized understanding. Post-Treatment Pain Scale: 1 Assessment: Patient had an expected response to treatment. The pt is making good overall progress with R knee strength, balance, ROM and functional mobility. The pt does still have some popping in the knee with pain up to a 5-6/10 with certain activities such as stair negotiation and negotiating steep surfaces. The pt has met several PT goals, but still needs to progress with her R knee strength.Pt would benefit from continuing PT 2x/wk for 4 wks. Skilled Intervention demonstrated by modifications of treatment per exercise log including increased load and increased rate and safety interventions per exercise log. Progress towards goals as expected. Plan for Next Visit: Treatment Visit with focus on R knee strength and proprioceptive ex's as able. Lam Jorge PT STATE LICENSE, [id number] documented in this encounter* Natali Hope, [employer]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 - 02/02/2020 3:[address] 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 Reports continued popping Rknee. Objective Treatments: Physical Therapy Exercise Log - 02/02/20 1529 OTHER Precautions/Contraindications 11/02/19 (No Lunges per Dr. Miguel 12/24/19) Notes Visit 30: 3:30-4:10PM Therapeutic Exercise ([id number]) Intervention Bike - x5 min L5 seat 9 Parameters Step Stretches - 20 sec x5 Intervention lat ambulation - 40' x4 with mini squat Parameters TKE - x10 5 sec hold Intervention Wall squats - x15 OTB Parameters BOSU step ups - x20 fwd/lat Intervention BOSU Rockerboard - x20 fwd/lat Parameters Ant step downs- 6in 2x10 R stance Intervention Steamboats - x20 L3 bilat Parameters Shuttle squats x20 50# Intervention LAQ - x20 YTB / HS curl - x20 RTB (NT 02-02-20) Parameters BOSU squats - x25 Intervention Stool Scoots- 20ft x4 Additional Exercises Add more exercises? Yes PT Treatment Times Therex Total Time 40 Direct Treatment Time 40 Total Treatment Time 40 Goals: Physical Therapy Ortho Goals: MOBILITY: Patient will be able to ambulate for 1 hour in community without difficulty in 6 weeks. (01/22/20, MET Can walk over an hour but needs occasional break) MOBILITY: Patient will be able to ambulate on uneven surfaces without difficulty in 6 weeks. (01/22/20, PARTIALLY MET Pt can walk on uneven surfaces, but not steep hills) MOBILITY: Patient will be able to ascend/descend stairs without difficulty in 4 weeks. (01/22/20, Partially MET, can not descend stairs reciprocally yet) Impairment: Patient will be able to return to sporting and recreational activities by returning to performing running, jumping, and cutting skills without difficulty in 12 weeks. (01/22/20, In Progress Pt is unable to do advanced sporting activity yet) CHANGING MAINTAINING POSITON: Patient will be able to sit for 1 hour without pain in 4 weeks ( 01/22/20, MET able to sit up for 1 hour) CHANGING MAINTAINING POSITON: Patient will be able to change position in bed without pain or difficulty in 4 weeks (01/22/20, MET) SELF CARE: Patient will be able to complete ADL's including bathing, dressing, and hair care without difficulty in 3 weeks. (01/22/20, MET) IMPAIRMENT: Patient will demonstrate improved postural awareness in PT sessions to facilitate mechanical alignment and function in 2 weeks. (01/22/20, MET) IMPAIRMENT: Improve pain from 6/10 to 0/10 during WB and ADL activity in 6 weeks (01/22/20, Partially MET, 1/10 on avg, but gets up to 5/10) IMPAIRMENT: Improve MMT of Right Knee Flexion from 4/5 to 5/5 in 6 weeks (01/22/20, Partially MET 4+/5) IMPAIRMENT: Improve MMT of Right Knee Extension from 4/5 to 5/5 in 6 weeks (01/22/20, Partially Met4+/5) IMPAIRMENT: Improve PROM of Right Knee Flexion from 24 degrees to 120 degrees in 6 weeks. (01/22/20, MET 0-135 deg) OTHER: Patient will be able to properly demonstrate independence with HEP in 2 weeks. (01/22/20, MET I with HEP) Patient Education: Quality of movement and Verbal HEP with patient demonstrated understanding and verbalized understanding. Post-Treatment Pain Scale: 3 Assessment: Patient had an expected response to treatment. Skilled Intervention demonstrated by modifications of treatment per exercise log including increased load, increased intensity, increased volume and assessment of patient's response and safety interventions per exercise log. Progress towards goals as expected and no increase in pain with increased intensity of Rx. Plan for Next Visit: waiting on continuation from insurance company. Natali Hope PTA STATE LICENSE, [id number] documented in this encounter* Darling Alfonso LPN - 02/03/2020 8:30 AM EST Patient presents today with complaints of urinary pain, frequency, and flank pain for 2 days. Urinalysis abnormal. Urine culture ordered. documented in this encounter* Karuna Ibrahim PT - 02/23/2020 11:[address] [facility] DAILY TREATMENT NOTE Today's Date 02/23/2020 Patient Name: Ethan Hernnadez Date of : 2005 Current Visit #: 31 Authorized Visits: 38 Case Name: Right Knee PFPS History: Pre-Treatment Pain Scale: 3 Symptoms: gradually improved Functional Diagnosis: 1. Instability of right patellofemoral joint Clinical Information: Subjective: Pt reports that her patella has been more unstable lately she is not able to go up and down stairs without pain she has difficulty walking on uneven surfaces with some buckling however she reports that she is walking better on even surfaces. Pt reports that she is able to ambulate on even surfaces for ~1.5 hours without difficulty or pain but after a long shift at standing and moving around at work she has increased pain. Pt reports she is returning to the doctor in March. She reports avg pain 4/10 and 7/10 at the worst. Aggravating factors: pivoting, walking for long distances,and stairs. Relieving factors: rest. Objective Knee Right Knee Tenderness: infrapatellar, patellar tendon, medial joint line, suprapatellar and tibial tubercle Range of Motion: Flexion Active: 140 Extension Active: -1 Muscle Strength: Flexion: 5 Extension: 4 Left Knee Left Knee WFL Muscle Strength WFL Ankle/Foot Right Ankle/Foot Right Ankle/Foot WFL Left Ankle/Foot Left Ankle/Foot WFL Treatments: Physical Therapy Exercise Log - 02/23/20 1058 OTHER Precautions/Contraindications (S) 11/02/19 (No Lunges per Dr. Miguel 12/24/19) Notes Visit 31: 11:00-11:45AM Therapeutic Exercise ([id number]) Intervention Bike - x5 min L5 seat 9 Parameters Step Stretches - 20 sec x5 Intervention lat ambulation - 40' x4 with mini squat (NT 02/22) Parameters TKE - x15 5 sec hold Intervention Wall squats - x15 OTB (NT 02/22) Parameters BOSU step ups - x10 fwd/lat Intervention BOSU Rockerboard - x20 fwd/lat Parameters Ant step downs- 6in 2x10 R stance Intervention Steamboats - x20 L3 bilat Parameters Shuttle squats x20 50# (NT 02/22) Intervention LAQ - x20 YTB / HS curl - x20 RTB Parameters BOSU squats - x25 (NT 02/22) Intervention Stool Scoots- 20ft x4 Additional Exercises Add more exercises? Yes PT Treatment Times Therex Total Time 35 Direct Treatment Time 35 Total Treatment Time 45 Goals: Physical Therapy Ortho Goals: MOBILITY: Patient will be able to complete a full shift of work without difficulty or increase in pain in 6 weeks. MOBILITY: Patient will be able to ambulate on uneven surfaces without difficulty in 6 weeks. (02/23/20, PARTIALLY MET Pt can walk on uneven surfaces, but not steep hills) MOBILITY: Patient will be able to ascend/descend stairs without difficulty in 4 weeks. (02/23/20, Partially MET, can not ascend/descend stairs reciprocally yet) Impairment: Patient will be able to return to sporting and recreational activities by returning to performing running, jumping, and cutting skills without difficulty in 12 weeks. (02/23/20, In Progress Pt is unable to do advanced sporting activity yet) CHANGING MAINTAINING POSITON: Patient will be able to sit for 1 hour without pain in 4 weeks ( 01/22/20, MET able to sit up for 1 hour) CHANGING MAINTAINING POSITON: Patient will be able to change position in bed without pain or difficulty in 4 weeks (01/22/20, MET) SELF CARE: Patient will be able to complete ADL's including bathing, dressing, and hair care without difficulty in 3 weeks. (01/22/20, MET) IMPAIRMENT: Patient will demonstrate improved postural awareness in PT sessions to facilitate mechanical alignment and function in 2 weeks. (01/22/20, MET) IMPAIRMENT: Improve pain from 6/10 to 0/10 during WB and ADL activity in 6 weeks (02/23/20, Partially MET, 4/10 on avg, but gets up to 6/10) IMPAIRMENT: Improve MMT of Right Knee Flexion from 4/5 to 5/5 in 6 weeks (02/23/20, Partially MET 4/5) IMPAIRMENT: Improve MMT of Right Knee Extension from 4/5 to 5/5 in 6 weeks (02/23/20, Partially Met4+/5) IMPAIRMENT: Improve PROM of Right Knee Flexion from 24 degrees to 120 degrees in 6 weeks. (01/22/20, MET 0-135 deg) OTHER: Patient will be able to properly demonstrate independence with HEP in 2 weeks. (01/22/20, MET I with HEP) Patient Education: Quality of movement with patient demonstrated understanding and verbalized understanding. Post-Treatment Pain Scale: 3 Assessment: Patient had an expected response to treatment. The pt is a 14 year old female that reports with decreased strength, ROM, and endurance which affects her ability to participate in ADLs, work activities and functional mobility tasks. Pt would benefit from skilled therapy to address these l imitations. Skilled Intervention demonstrated by modifications of treatment per exercise log including increased cueing and safety interventions per exercise log. Progress towards goals as expected. Plan for Next Visit: Treatment Visit with focus on stregthening R MARIIA. Karuna Ibrahim, PT STATE LICENSE, [id number] documented in this encounter* Karuna Ibrahim, PT - 02/25/2020 10:[address] [facility] DAILY TREATMENT NOTE Today's Date 02/25/2020 Patient Name: Ethan Hernandez Date of : 2005 Current Visit #: 32 Authorized Visits: 38 Case Name: Right Knee PFPS History: Pre-Treatment Pain Scale: 4 Symptoms: gradually improved Functional Diagnosis: 1. Instability of right patellofemoral joint Clinical Information: Subjective: Pt reports that today she has pain radiating from her knee to her hip but she reports that it typically hurts with weather changes. She reports that she was sore after last session that lasted the rest of the day. Objective Treatments: Physical Therapy Exercise Log - 02/25/20 1014 OTHER Precautions/Contraindications 11/02/19 (No Lunges per Dr. Miguel 12/24/19) Notes Visit 32: 10:15-10:53AM Therapeutic Exercise ([id number]) Intervention Bike - x5 min L5 seat 9 Parameters Step Stretches - 20 sec x5 Intervention lat ambulation - 40' x4 with mini squat Parameters TKE - x15 5 sec hold Intervention Wall squats - x15 OTB Parameters BOSU step ups - x10 fwd/lat Intervention BOSU Rockerboard - x20 fwd/lat Parameters Ant step downs- 6in 2x10 R stance Intervention Steamboats - x20 L3 bilat Parameters Shuttle squats x20 50# Intervention LAQ - x20 YTB / HS curl - x20 RTB Parameters BOSU squats - x25 Intervention Stool Scoots- 20ft x4 Additional Exercises Add more exercises? Yes PT Treatment Times Therex Total Time 38 Direct Treatment Time 38 Total Treatment Time 38 Goals: Physical Therapy Ortho Goals: MOBILITY: Patient will be able to complete a full shift of work without difficulty or increase in pain in 6 weeks. MOBILITY: Patient will be able to ambulate on uneven surfaces without difficulty in 6 weeks. (02/23/20, PARTIALLY MET Pt can walk on uneven surfaces, but not steep hills) MOBILITY: Patient will be able to ascend/descend stairs without difficulty in 4 weeks. (02/23/20, Partially MET, can not ascend/descend stairs reciprocally yet) Impairment: Patient will be able to return to sporting and recreational activities by returning to performing running, jumping, and cutting skills without difficulty in 12 weeks. (02/23/20, In Progress Pt is unable to do advanced sporting activity yet) CHANGING MAINTAINING POSITON: Patient will be able to sit for 1 hour without pain in 4 weeks ( 01/22/20, MET able to sit up for 1 hour) CHANGING MAINTAINING POSITON: Patient will be able to change position in bed without pain or difficulty in 4 weeks (01/22/20, MET) SELF CARE: Patient will be able to complete ADL's including bathing, dressing, and hair care without difficulty in 3 weeks. (01/22/20, MET) IMPAIRMENT: Patient will demonstrate improved postural awareness in PT sessions to facilitate mechanical alignment and function in 2 weeks. (01/22/20, MET) IMPAIRMENT: Improve pain from 6/10 to 0/10 during WB and ADL activity in 6 weeks (02/23/20, Partially MET, 4/10 on avg, but gets up to 6/10) IMPAIRMENT: Improve MMT of Right Knee Flexion from 4/5 to 5/5 in 6 weeks (02/23/20, Partially MET 4/5) IMPAIRMENT: Improve MMT of Right Knee Extension from 4/5 to 5/5 in 6 weeks (02/23/20, Partially Met4+/5) IMPAIRMENT: Improve PROM of Right Knee Flexion from 24 degrees to 120 degrees in 6 weeks. (01/22/20, MET 0-135 deg) OTHER: Patient will be able to properly demonstrate independence with HEP in 2 weeks. (01/22/20, MET I with HEP) Patient Education: Quality of movement with patient demonstrated understanding and verbalized understanding. Post-Treatment Pain Scale: 4 Assessment: Patient had an expected response to treatment. Skilled Intervention demonstrated by modifications of treatment per exercise log including increased load and safety interventions per exercise log. Progress towards goals as expected. Plan for Next Visit: Treatment Visit with focus on Continue with POC. Karuna Ibrahim, BILL STATE LICENSE, [id number] documented in this encounter* Lam Jorge, PT - 03/08/2020 11:[address] [facility] DAILY TREATMENT NOTE Today's Date 03/08/2020 Patient Name: Ethan Hernandez Date of : 2005 Current Visit #: 33 Authorized Visits: 68 Case Name: Right Knee PFPS History: Pre-Treatment Pain Scale: 3 Symptoms: gradually improved Functional Diagnosis: 1. Instability of right patellofemoral joint Clinical Information: Subjective: Pt reports minimal pain currently, but that the knee pops at times and is painful when it does. Objective Treatments: Physical Therapy Exercise Log - 03/08/20 1104 OTHER Precautions/Contraindications 11/02/19 (No Lunges per Dr. Miguel 12/24/19) Notes Visit 33: 11:00 - 11:40 am Therapeutic Exercise ([id number]) Intervention Bike - x5 min L5 seat 9 Parameters Step Stretches - 20 sec x5 Intervention lat ambulation - 40' x4 with mini squat Parameters TKE - x15 5 sec hold Intervention Wall squats - x15 OTB Parameters BOSU step ups - x10 fwd/lat Intervention BOSU Rockerboard - x20 fwd/lat Parameters Ant step downs- 6in 2x10 R stance Intervention Steamboats - x20 L3 bilat Parameters Shuttle squats x20 50# Intervention LAQ - x20 YTB / HS curl - x20 RTB Parameters BOSU squats - x25 Intervention Stool Scoots- 20ft x4 Additional Exercises Add more exercises? Yes Goals: Physical Therapy Ortho Goals: MOBILITY: Patient will be able to complete a full shift of work without difficulty or increase in pain in 6 weeks. MOBILITY: Patient will be able to ambulate on uneven surfaces without difficulty in 6 weeks. (02/23/20, PARTIALLY MET Pt can walk on uneven surfaces, but not steep hills) MOBILITY: Patient will be able to ascend/descend stairs without difficulty in 4 weeks. (02/23/20, Partially MET, can not ascend/descend stairs reciprocally yet) Impairment: Patient will be able to return to sporting and recreational activities by returning to performing running, jumping, and cutting skills without difficulty in 12 weeks. (02/23/20, In Progress Pt is unable to do advanced sporting activity yet) CHANGING MAINTAINING POSITON: Patient will be able to sit for 1 hour without pain in 4 weeks ( 01/22/20, MET able to sit up for 1 hour) CHANGING MAINTAINING POSITON: Patient will be able to change position in bed without pain or difficulty in 4 weeks (01/22/20, MET) SELF CARE: Patient will be able to complete ADL's including bathing, dressing, and hair care without difficulty in 3 weeks. (01/22/20, MET) IMPAIRMENT: Patient will demonstrate improved postural awareness in PT sessions to facilitate mechanical alignment and function in 2 weeks. (01/22/20, MET) IMPAIRMENT: Improve pain from 6/10 to 0/10 during WB and ADL activity in 6 weeks (02/23/20, Partially MET, 4/10 on avg, but gets up to 6/10) IMPAIRMENT: Improve MMT of Right Knee Flexion from 4/5 to 5/5 in 6 weeks (02/23/20, Partially MET 4/5) IMPAIRMENT: Improve MMT of Right Knee Extension from 4/5 to 5/5 in 6 weeks (02/23/20, Partially Met4+/5) IMPAIRMENT: Improve PROM of Right Knee Flexion from 24 degrees to 120 degrees in 6 weeks. (01/22/20, MET 0-135 deg) OTHER: Patient will be able to properly demonstrate independence with HEP in 2 weeks. (01/22/20, MET I with HEP) Patient Education: Quality of movement and Verbal HEP with patient demonstrated understanding and verbalized understanding. Post-Treatment Pain Scale: 2 Assessment: Patient had an expected response to treatment. Good overall tolerance to strength ex's.Continued R quad weakness, but slowly improving. Skilled Intervention demonstrated by modifications of treatment per exercise log including increased load and increased rate and safety interventions per exercise log. Progress towards goals as expected. Plan for Next Visit: Treatment Visit with focus on R knee strengthening as able. Lam Jorge PT STATE LICENSE, [id number] documented in this encounter* Karuna Ibrahim, PT - 03/11/2020 1:[address] [facility] DAILY TREATMENT NOTE Today's Date 03/11/2020 Patient Name: Ethan Hernandez Date of : 2005 Current Visit #: 34 Authorized Visits: 68 Case Name: Right Knee PFPS History: Pre-Treatment Pain Scale: 0 Symptoms: gradually improved Functional Diagnosis: 1. Instability of right patellofemoral joint Clinical Information: Subjective: Pt reports she feels good today. She has some tightness around the knee sometimes. Objective Treatments: Physical Therapy Exercise Log - 03/11/20 1319 OTHER Precautions/Contraindications (S) 11/02/19 (No Lunges per Dr. Miguel 12/24/19) Notes Visit 34: 1:20 - 2:00 am Therapeutic Exercise ([id number]) Intervention Bike - x5 min L5 seat 9 Parameters Step Stretches - 20 sec x5 Intervention lat ambulation - 40' x 2 with mini squat Parameters TKE - x20 5 sec hold Intervention Wall squats - x15 OTB Parameters BOSU step ups - x20 fwd/lat Intervention BOSU Rockerboard - x20 fwd/lat Parameters Ant step downs- 6in 2x10 R stance Intervention Steamboats - x20 L3 bilat Parameters Shuttle squats x20 50# Intervention LAQ - x20 YTB / HS curl - x20 RTB Parameters BOSU squats - x25 Intervention Stool Scoots- 20ft x4 Additional Exercises Add more exercises? Yes PT Treatment Times Therex Total Time 40 Direct Treatment Time 40 Total Treatment Time 40 Goals: Physical Therapy Ortho Goals: MOBILITY: Patient will be able to complete a full shift of work without difficulty or increase in pain in 6 weeks. MOBILITY: Patient will be able to ambulate on uneven surfaces without difficulty in 6 weeks. (02/23/20, PARTIALLY MET Pt can walk on uneven surfaces, but not steep hills) MOBILITY: Patient will be able to ascend/descend stairs without difficulty in 4 weeks. (02/23/20, Partially MET, can not ascend/descend stairs reciprocally yet) Impairment: Patient will be able to return to sporting and recreational activities by returning to performing running, jumping, and cutting skills without difficulty in 12 weeks. (02/23/20, In Progress Pt is unable to do advanced sporting activity yet) CHANGING MAINTAINING POSITON: Patient will be able to sit for 1 hour without pain in 4 weeks ( 01/22/20, MET able to sit up for 1 hour) CHANGING MAINTAINING POSITON: Patient will be able to change position in bed without pain or difficulty in 4 weeks (01/22/20, MET) SELF CARE: Patient will be able to complete ADL's including bathing, dressing, and hair care without difficulty in 3 weeks. (01/22/20, MET) IMPAIRMENT: Patient will demonstrate improved postural awareness in PT sessions to facilitate mechanical alignment and function in 2 weeks. (01/22/20, MET) IMPAIRMENT: Improve pain from 6/10 to 0/10 during WB and ADL activity in 6 weeks (02/23/20, Partially MET, 4/10 on avg, but gets up to 6/10) IMPAIRMENT: Improve MMT of Right Knee Flexion from 4/5 to 5/5 in 6 weeks (02/23/20, Partially MET 4/5) IMPAIRMENT: Improve MMT of Right Knee Extension from 4/5 to 5/5 in 6 weeks (02/23/20, Partially Met4+/5) IMPAIRMENT: Improve PROM of Right Knee Flexion from 24 degrees to 120 degrees in 6 weeks. (01/22/20, MET 0-135 deg) OTHER: Patient will be able to properly demonstrate independence with HEP in 2 weeks. (01/22/20, MET I with HEP) Patient Education: Quality of movement with patient demonstrated understanding and verbalized understanding. Post-Treatment Pain Scale: 1 Assessment: Patient had an expected response to treatment. Skilled Intervention demonstrated by modifications of treatment per exercise log including increased rate and safety interventions per exercise log. Progress towards goals as expected. Plan for Next Visit: Treatment Visit with focus on continue with strengthening. Karuna Ibrahim PT STATE LICENSE, [id number] documented in this encounter* Natali Hope, COR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 - 03/15/2020 1:[address] [facility] DAILY TREATMENT NOTE Today's Date 03/15/2020 Patient Name: Ethan Hernandez Date of : 2005 Current Visit #: 35 Authorized Visits: 68 Case Name: Right Knee PFPS History: Pre-Treatment Pain Scale: 1 Symptoms: gradually improved Functional Diagnosis: 1. Instability of right patellofemoral joint Clinical Information: Subjective: Pt reports R knee is uncomfortable, and continues to have popping and muscle soreness. Pt has appt with surgeon on . Objective Treatments: Physical Therapy Exercise Log - 03/15/20 1317 OTHER Precautions/Contraindications 11/02/19 (No Lunges per Dr. Miguel 12/24/19) Notes Visit 35: 1:17 - 1:55 pm Therapeutic Exercise ([id number]) Intervention Bike - x5 min L5 seat 9 Parameters Step Stretches - 20 sec x5 Intervention lat ambulation - 40' x 2 with mini squat Parameters TKE - x20 5 sec hold Intervention Wall squats - x20 OTB Parameters BOSU step ups - x20 fwd/lat Intervention BOSU Rockerboard - x20 fwd/lat Parameters Ant step downs- 6in 2x10 R stance Intervention Steamboats - x20 L3 bilat Parameters Shuttle squats x20 50# (NT 03-15-20 unavailable) Intervention LAQ - x20 / HS curl - x20 RTB Parameters BOSU squats - x25 Intervention Stool Scoots- 20ft x4 Parameters Excursions, small range, R stance- x10 ea Intervention Cone Taps- 0# ball, x10 R stance Additional Exercises Add more exercises? Yes PT Treatment Times Therex Total Time 38 Direct Treatment Time 38 Total Treatment Time 38 Goals: Physical Therapy Ortho Goals: MOBILITY: Patient will be able to complete a full shift of work without difficulty or increase in pain in 6 weeks. MOBILITY: Patient will be able to ambulate on uneven surfaces without difficulty in 6 weeks. (02/23/20, PARTIALLY MET Pt can walk on uneven surfaces, but not steep hills) MOBILITY: Patient will be able to ascend/descend stairs without difficulty in 4 weeks. (02/23/20, Partially MET, can not ascend/descend stairs reciprocally yet) Impairment: Patient will be able to return to sporting and recreational activities by returning to performing running, jumping, and cutting skills without difficulty in 12 weeks. (02/23/20, In Progress Pt is unable to do advanced sporting activity yet) CHANGING MAINTAINING POSITON: Patient will be able to sit for 1 hour without pain in 4 weeks ( 01/22/20, MET able to sit up for 1 hour) CHANGING MAINTAINING POSITON: Patient will be able to change position in bed without pain or difficulty in 4 weeks (01/22/20, MET) SELF CARE: Patient will be able to complete ADL's including bathing, dressing, and hair care without difficulty in 3 weeks. (01/22/20, MET) IMPAIRMENT: Patient will demonstrate improved postural awareness in PT sessions to facilitate mechanical alignment and function in 2 weeks. (01/22/20, MET) IMPAIRMENT: Improve pain from 6/10 to 0/10 during WB and ADL activity in 6 weeks (02/23/20, Partially MET, 4/10 on avg, but gets up to 6/10) IMPAIRMENT: Improve MMT of Right Knee Flexion from 4/5 to 5/5 in 6 weeks (02/23/20, Partially MET 4/5) IMPAIRMENT: Improve MMT of Right Knee Extension from 4/5 to 5/5 in 6 weeks (02/23/20, Partially Met4+/5) IMPAIRMENT: Improve PROM of Right Knee Flexion from 24 degrees to 120 degrees in 6 weeks. (01/22/20, MET 0-135 deg) OTHER: Patient will be able to properly demonstrate independence with HEP in 2 weeks. (01/22/20, MET I with HEP) Patient Education: Quality of movement and Verbal HEP with patient demonstrated understanding and verbalized understanding. Post-Treatment Pain Scale: 3 Assessment: Patient had an expected response to treatment. Skilled Intervention demonstrated by modifications of treatment per exercise log including increased load, increased intensity, increased volume and assessment of patient's response and safety interventions per exercise log. Progress towards goals as expected and weakness demonstrated R LE with additional ex this date . Plan for Next Visit: Treatment Visit with focus on strength and stabilty. Natali Hope PTA STATE LICENSE, [id number] documented in this encounter* Annmarie Norwood - 03/15/2020 2:30 PM EST Nurse Note: Review of Systems Constitutional: Positive for appetite change. Patient states that since her first UTI every time that she eats it makes her stomach hurt and makes her nauseous. Patient states that she still has a little burning when she urinates but that the nausea feeling has just been getting worse daily and that she only eats about once a day. Genitourinary: Positive for decreased urine volume, dysuria and hematuria. Patient states that she has been drinking normal and al day long but states that she only urinates about twice a day. Musculoskeletal: Positive for back pain. Nursing Assessment: Physical Exam documented in this encounter* Natali Hope, COR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 - 03/25/2020 1:[address] [facility] DAILY TREATMENT NOTE Today's Date 03/25/2020 Patient Name: Ethan Hernandez Date of : 2005 Current Visit #: 38 Authorized Visits: 68 Case Name: Right Knee PFPS History: Pre-Treatment Pain Scale: 4 Symptoms: gradually improved Functional Diagnosis: 1. Instability of right patellofemoral joint Clinical Information: Subjective: Pt reports she stepped off of a short step this morning and reports her R knee buckled.Has been sore since. Objective Treatments: Physical Therapy Exercise Log - 03/25/20 1315 OTHER Precautions/Contraindications 11/02/19 (No Lunges per Dr. Miguel 12/24/19) Notes Visit 38: 1:15 - 1:55 pm Therapeutic Exercise ([id number]) Intervention Bike - x5 min L5 seat 9 Parameters Step Stretches - 20 sec x5 Intervention lat ambulation - 40' x 2 with mini squat Parameters TKE - x20 5 sec hold Intervention Wall squats - x20 OTB Parameters BOSU step ups - x20 fwd/lat Intervention BOSU Rockerboard - x20 fwd/lat no UE support Parameters Ant step downs- 4in 2x15 R stance (decreased height due to increased pain) Intervention Steamboats - x20 L3 bilat Parameters Shuttle squats x20 50# (NT 03-25-20 due to pain.) Intervention -- Parameters BOSU squats - x25 1 UE support Intervention Stool Scoots- 20ft x4 Parameters Excursions, small range, R stance- x10 ea Intervention Cone Taps- 4# ball, x15 R stance Additional Exercises Add more exercises? Yes Modalities Modalities Vasopneumatic Treatment Parameters 10min, med, 34 deg PT Treatment Times Therex Total Time 30 Modalities Total Time 10 Direct Treatment Time 40 Goals: Physical Therapy Ortho Goals: MOBILITY: Patient will be able to complete a full shift of work without difficulty or increase in pain in 6 weeks. MOBILITY: Patient will be able to ambulate on uneven surfaces without difficulty in 6 weeks. (02/23/20, PARTIALLY MET Pt can walk on uneven surfaces, but not steep hills) MOBILITY: Patient will be able to ascend/descend stairs without difficulty in 4 weeks. (02/23/20, Partially MET, can not ascend/descend stairs reciprocally yet) Impairment: Patient will be able to return to sporting and recreational activities by returning to performing running, jumping, and cutting skills without difficulty in 12 weeks. (02/23/20, In Progress Pt is unable to do advanced sporting activity yet) CHANGING MAINTAINING POSITON: Patient will be able to sit for 1 hour without pain in 4 weeks ( 01/22/20, MET able to sit up for 1 hour) CHANGING MAINTAINING POSITON: Patient will be able to change position in bed without pain or difficulty in 4 weeks (01/22/20, MET) SELF CARE: Patient will be able to complete ADL's including bathing, dressing, and hair care without difficulty in 3 weeks. (01/22/20, MET) IMPAIRMENT: Patient will demonstrate improved postural awareness in PT sessions to facilitate mechanical alignment and function in 2 weeks. (01/22/20, MET) IMPAIRMENT: Improve pain from 6/10 to 0/10 during WB and ADL activity in 6 weeks (02/23/20, Partially MET, 4/10 on avg, but gets up to 6/10) IMPAIRMENT: Improve MMT of Right Knee Flexion from 4/5 to 5/5 in 6 weeks (02/23/20, Partially MET 4/5) IMPAIRMENT: Improve MMT of Right Knee Extension from 4/5 to 5/5 in 6 weeks (02/23/20, Partially Met4+/5) IMPAIRMENT: Improve PROM of Right Knee Flexion from 24 degrees to 120 degrees in 6 weeks. (01/22/20, MET 0-135 deg) OTHER: Patient will be able to properly demonstrate independence with HEP in 2 weeks. (01/22/20, MET I with HEP) Patient Education: Quality of movement and Verbal HEP with patient demonstrated understanding and verbalized understanding. Post-Treatment Pain Scale: 4 Assessment: Patient had an expected response to treatment. Skilled Intervention demonstrated by modifications of treatment per exercise log including decreased intensity, assessment of patient's response and modalities as indicated and safety interventions per exercise log. Progress towards goals as expected and decreased step height with ant step downs due to increased Rknee pain. Vaso at end of Rx due to increased pain this date from knee buckling. Plan for Next Visit: Treatment Visit with focus on strength and stability. Natali Hope PTA STATE LICENSE, [id number] documented in this encounter* Lam Jorge, PT - 04/01/2020 1:[address] 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 Objective Treatments: Physical Therapy Exercise Log - 04/01/20 1327 OTHER Precautions/Contraindications 11/02/19 (No Lunges per Dr. Miguel 12/24/19) Notes Visit 39: 1:15 - 2:05 pm Therapeutic Exercise ([id number]) Intervention Bike - x5 min L5 seat 9 Parameters Step Stretches - 20 sec x5 Intervention lat ambulation - 40' x 2 with mini squat Parameters TKE - x20 5 sec hold Intervention Wall squats - x20 OTB Parameters BOSU step ups - x20 fwd/lat Intervention BOSU Rockerboard - x20 fwd/lat no UE support Parameters Ant step downs- 4in 2x15 R stance (decreased height due to increased pain) Intervention Steamboats - x20 L3 bilat Parameters Shuttle squats B/L x20 50# U/L x20 25# Parameters BOSU squats - x25 1 UE support Intervention Stool Scoots- 20ft x4 Parameters Excursions, small range, R stance- x10 ea Intervention Cone Taps- 4# ball, x15 R stance Additional Exercises Add more exercises? Yes Modalities Modalities Vasopneumatic Treatment Parameters 10min, med, 34 deg PT Treatment Times Therex Total Time 40 Modalities Total Time 10 Direct Treatment Time 50 Total Treatment Time 50 Goals: Physical Therapy Ortho Goals: MOBILITY: Patient will be able to complete a full shift of work without difficulty or increase in pain in 6 weeks. (04/01/20, MET) MOBILITY: Patient will be able to ambulate on uneven surfaces without difficulty in 6 weeks. (04/01/20, PARTIALLY MET/IN PROGRESS Pt can walk on uneven surfaces, but not steep hills) MOBILITY: Patient will be able to ascend/descend stairs without difficulty in 4 weeks. (04/01/20, Partially MET, can go up reciprocally but goes down non-reciprocal) Impairment: Patient will be able to return to sporting and recreational activities by returning to performing running, jumping, and cutting skills without difficulty in 12 weeks. (04/01/20, In Progress, Pt is unable to do advanced sporting activity yet) IMPAIRMENT: Improve pain from 6/10 to 0/10 during WB and ADL activity in 6 weeks (04/01/20, Partially MET, 4/10 on avg, but gets up to 6/10) IMPAIRMENT: Improve MMT of Right Knee Flexion from 4/5 to 5/5 in 6 weeks (04/01/20, Partially MET, 4to 4+/5) IMPAIRMENT: Improve MMT of Right Knee Extension from 4/5 to 5/5 in 6 weeks (04/01/20, Partially Met 4+/5) OTHER: Patient will be able to properly demonstrate independence with HEP in 2 weeks. (04/01/20, METI with current HEP) Patient Education: Quality of movement and Verbal HEP with patient demonstrated understanding and verbalized understanding. Post-Treatment Pain Scale: 2 Assessment: Patient had an expected response to treatment. The pt is making good overall progress with her knee ROM/flexibility but still has significant R knee weakness that can be limiting with activity. The pt would benefit from continuing with PT 1-2 times/week for 4-6 more weeks as per currentPOC. Skilled Intervention demonstrated by modifications of treatment per exercise log including increased load and increased rate and safety interventions per exercise log. Progress towards goals as expected. Plan for Next Visit: Treatment Visit with focus on R knee strengthening as able Lam Jorge, BILL STATE LICENSE, [id number] documented in this encounter* Lam Jorge, PT - 04/01/2020 1:[address] 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 Objective Treatments: Physical Therapy Exercise Log - 04/01/20 1327 OTHER Precautions/Contraindications 11/02/19 (No Lunges per Dr. Miguel 12/24/19) Notes Visit 39: 1:15 - 2:05 pm Therapeutic Exercise ([id number]) Intervention Bike - x5 min L5 seat 9 Parameters Step Stretches - 20 sec x5 Intervention lat ambulation - 40' x 2 with mini squat Parameters TKE - x20 5 sec hold Intervention Wall squats - x20 OTB Parameters BOSU step ups - x20 fwd/lat Intervention BOSU Rockerboard - x20 fwd/lat no UE support Parameters Ant step downs- 4in 2x15 R stance (decreased height due to increased pain) Intervention Steamboats - x20 L3 bilat Parameters Shuttle squats B/L x20 50# U/L x20 25# Parameters BOSU squats - x25 1 UE support Intervention Stool Scoots- 20ft x4 Parameters Excursions, small range, R stance- x10 ea Intervention Cone Taps- 4# ball, x15 R stance Additional Exercises Add more exercises? Yes Modalities Modalities Vasopneumatic Treatment Parameters 10min, med, 34 deg PT Treatment Times Therex Total Time 40 Modalities Total Time 10 Direct Treatment Time 50 Total Treatment Time 50 Goals: Physical Therapy Ortho Goals: MOBILITY: Patient will be able to complete a full shift of work without difficulty or increase in pain in 6 weeks. (04/01/20, MET) MOBILITY: Patient will be able to ambulate on uneven surfaces without difficulty in 6 weeks. (04/01/20, PARTIALLY MET/IN PROGRESS Pt can walk on uneven surfaces, but not steep hills) MOBILITY: Patient will be able to ascend/descend stairs without difficulty in 4 weeks. (04/01/20, Partially MET, can go up reciprocally but goes down non-reciprocal) Impairment: Patient will be able to return to sporting and recreational activities by returning to performing running, jumping, and cutting skills without difficulty in 12 weeks. (04/01/20, In Progress, Pt is unable to do advanced sporting activity yet) IMPAIRMENT: Improve pain from 6/10 to 0/10 during WB and ADL activity in 6 weeks (04/01/20, Partially MET, 4/10 on avg, but gets up to 6/10) IMPAIRMENT: Improve MMT of Right Knee Flexion from 4/5 to 5/5 in 6 weeks (04/01/20, Partially MET, 4to 4+/5) IMPAIRMENT: Improve MMT of Right Knee Extension from 4/5 to 5/5 in 6 weeks (04/01/20, Partially Met 4+/5) OTHER: Patient will be able to properly demonstrate independence with HEP in 2 weeks. (04/01/20, METI with current HEP) Patient Education: Quality of movement and Verbal HEP with patient demonstrated understanding and verbalized understanding. Post-Treatment Pain Scale: 2 Assessment: Patient had an expected response to treatment. The pt is making good overall progress with her knee ROM/flexibility but still has significant R knee weakness that can be limiting with activity. The pt would benefit from continuing with PT 1-2 times/week for 4-6 more weeks as per currentPOC. Skilled Intervention demonstrated by modifications of treatment per exercise log including increased load and increased rate and safety interventions per exercise log. Progress towards goals as expected. Plan for Next Visit: Treatment Visit with focus on R knee strengthening as able Lam Jorge, PT STATE LICENSE, [id number] documented in this encounter* Mary Miguel MD - 04/02/2020 2:15 PM EST Dictation on: 04/02/2020 2:16 PM by: MARY MIGUEL [[id number]] documented in this encounter* Stefanie Jennifer - 04/15/2020 11:[address] 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 Objective Treatments: Physical Therapy Exercise Log - 04/15/20 1057 OTHER Precautions/Contraindications 11/02/19 (No Lunges per Dr. Miguel 12/24/19) Notes Visit 41: 10:57 - 11:30 pm Therapeutic Exercise ([id number]) Intervention Bike - x5 min L5 seat 9 Parameters Step Stretches - 20 sec x5 Intervention lat ambulation - 40' x 2 with mini squat YTB Parameters TKE - x20 5 sec hold Lv3 Intervention Wall squats - x20 OTB Parameters BOSU step ups - x20 fwd/lat Intervention BOSU Rockerboard - x20 fwd/lat no UE support Parameters Ant step downs- 4in 2x15 R stance (decreased height due to increased pain) (NT 2-12) Intervention Steamboats - x20 L3 bilat (NT 2-12) Parameters Shuttle squats B/L x20 50# U/L x20 25# Intervention BOSU squats - x25 1 UE support Parameters Stool Scoots- 20ft x4 Intervention Cone Taps- 4# ball, x15 R stance Parameters Wall sits 3 x 20 sec Intervention jogging 50% of max 50ft x4 Additional Exercises Add more exercises? Yes Modalities Parameters 10min, med, 34 deg (NT 2-12) PT Treatment Times Therex Total Time 33 Direct Treatment Time 33 Total Treatment Time 33 Goals: Physical Therapy Ortho Goals: MOBILITY: Patient will be able to complete a full shift of work without difficulty or increase in pain in 6 weeks. (04/01/20, MET) MOBILITY: Patient will be able to ambulate on uneven surfaces without difficulty in 6 weeks. (04/01/20, PARTIALLY MET/IN PROGRESS Pt can walk on uneven surfaces, but not steep hills) MOBILITY: Patient will be able to ascend/descend stairs without difficulty in 4 weeks. (04/01/20, Partially MET, can go up reciprocally but goes down non-reciprocal) Impairment: Patient will be able to return to sporting and recreational activities by returning to performing running, jumping, and cutting skills without difficulty in 12 weeks. (04/01/20, In Progress, Pt is unable to do advanced sporting activity yet) IMPAIRMENT: Improve pain from 6/10 to 0/10 during WB and ADL activity in 6 weeks (04/01/20, Partially MET, 4/10 on avg, but gets up to 6/10) IMPAIRMENT: Improve MMT of Right Knee Flexion from 4/5 to 5/5 in 6 weeks (04/01/20, Partially MET, 4to 4+/5) IMPAIRMENT: Improve MMT of Right Knee Extension from 4/5 to 5/5 in 6 weeks (04/01/20, Partially Met 4+/5) OTHER: Patient will be able to properly demonstrate independence with HEP in 2 weeks. (04/01/20, METI with current HEP) Patient Education: Quality of movement with patient demonstrated understanding and verbalized understanding. Post-Treatment Pain Scale: 0 Assessment: Patient had an expected response to treatment. Skilled Intervention demonstrated by modifications of treatment per exercise log including increased load, increased intensity and assessment of patient's response and safety interventions per exercise log. Progress towards goals as expected and pt able to complete all therex without an increase in pain. Pt states her knee felt weird with jogging and TKE but not painful; c/o weakness due to not being at therapy last week. Plan for Next Visit: Treatment Visit with focus on strength, pain management Jennifer VALLE No licensure found in state: [place] Treatment directed and supervised by supervising therapist: Natali Hope PTA. documented in this encounter* Karuna Ibrahim, PT - 04/22/2020 12:[address] 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 She reports she had some muscle soreness after last session but it did last long. Objective Treatments: Physical Therapy Exercise Log - 04/22/20 1240 OTHER Precautions/Contraindications 11/02/19 Notes Visit 42: 12:35 - 1:15 pm Therapeutic Exercise ([id number]) Intervention Bike - x5 min L5 seat 6 Parameters Step Stretches - 20 sec x5 Intervention lat ambulation - 40' x 2 with mini squat YTB Parameters TKE - x20 5 sec hold Lv3 Intervention Wall squats - x20 OTB and YTB Parameters BOSU step ups - x20 fwd/lat Intervention BOSU Rockerboard - x20 fwd/lat no UE support Parameters Ant step downs- 4in 2x15 R stance (decreased height due to increased pain) (NT 2-19) Intervention Steamboats - x20 L3 bilat (NT 2-19) Parameters Shuttle squats B/L x20 50# U/L x20 25# Intervention BOSU squats - x25 1 UE support Parameters Stool Scoots- 20ft x4 with red weighted ball Intervention Cone Taps- 4# ball, x15 R stance Parameters Wall sits 3 x 20 sec Intervention jogging 50% of max 50ft x4 Parameters double leg forward jumping 20 ft x4 Additional Exercises Add more exercises? Yes PT Treatment Times Therex Total Time 40 Direct Treatment Time 40 Total Treatment Time 40 Goals: Physical Therapy Ortho Goals: MOBILITY: Patient will be able to complete a full shift of work without difficulty or increase in pain in 6 weeks. (04/01/20, MET) MOBILITY: Patient will be able to ambulate on uneven surfaces without difficulty in 6 weeks. (04/01/20, PARTIALLY MET/IN PROGRESS Pt can walk on uneven surfaces, but not steep hills) MOBILITY: Patient will be able to ascend/descend stairs without difficulty in 4 weeks. (04/01/20, Partially MET, can go up reciprocally but goes down non-reciprocal) Impairment: Patient will be able to return to sporting and recreational activities by returning to performing running, jumping, and cutting skills without difficulty in 12 weeks. (04/01/20, In Progress, Pt is unable to do advanced sporting activity yet) IMPAIRMENT: Improve pain from 6/10 to 0/10 during WB and ADL activity in 6 weeks (04/01/20, Partially MET, 4/10 on avg, but gets up to 6/10) IMPAIRMENT: Improve MMT of Right Knee Flexion from 4/5 to 5/5 in 6 weeks (04/01/20, Partially MET, 4to 4+/5) IMPAIRMENT: Improve MMT of Right Knee Extension from 4/5 to 5/5 in 6 weeks (04/01/20, Partially Met 4+/5) OTHER: Patient will be able to properly demonstrate independence with HEP in 2 weeks. (04/01/20, METI with current HEP) Patient Education: Quality of movement with patient demonstrated understanding and verbalized understanding. Post-Treatment Pain Scale: 4 Assessment: Patient had an expected response to treatment. Skilled Intervention demonstrated by modifications of treatment per exercise log including increased rate and safety interventions per exercise log. Progress towards goals as expected. Plan for Next Visit: Treatment Visit with focus on strengthening. Karuna Ibrahim, BILL STATE LICENSE, [id number] documented in this encounter* Lam Jorge, PT - 04/29/2020 1:[address] 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 Pt reports that she feels good about continuing strengthening I at this time and working with head athletic trainer at school on sport specific activity. Objective Treatments: Physical Therapy Exercise Log - 04/29/20 1333 OTHER Precautions/Contraindications 11/02/19 Notes Visit 44: 1:15 - 2:00 pm Therapeutic Exercise ([id number]) Intervention Bike - x5 min L5 seat 6 Parameters Step Stretches - 20 sec x5 Intervention lat ambulation - 40' x 2 with mini squat YTB Parameters TKE - x20 5 sec BALL Intervention Wall squats - x20 OTB and YTB Parameters BOSU step ups - x20 fwd/lat Intervention BOSU Rockerboard - x20 fwd/lat no UE support Parameters Shuttle squats B/L x20 75# U/L x20 32# Intervention BOSU squats - x 25 1 UE support Parameters Stool Scoots- 20ft x4 with red weighted ball Intervention Cone Taps- 4# ball, x15 R stance Parameters Wall sits 3 x 20 sec Intervention jogging 50% of max 50ft x4 Parameters double leg forward jumping 20 ft x4 Additional Exercises Add more exercises? Yes Goals: Physical Therapy Ortho Goals: MOBILITY: Patient will be able to complete a full shift of work without difficulty or increase in pain in 6 weeks. (04/01/20, MET) MOBILITY: Patient will be able to ambulate on uneven surfaces without difficulty in 6 weeks. (04/29/20, PARTIALLY MET/IN PROGRESS Pt can walk on uneven surfaces with much better tolerance) MOBILITY: Patient will be able to ascend/descend stairs without difficulty in 4 weeks. (04/29/20, MET, can go up reciprocally but uses caution descending) Impairment: Patient will be able to return to sporting and recreational activities by returning to performing running, jumping, and cutting skills without difficulty in 12 weeks. (04/29/20, In Progress, Pt is unable to do advanced sporting activity yet, but is transitioning back to running) IMPAIRMENT: Improve pain from 6/10 to 0/10 during WB and ADL activity in 6 weeks (04/29/20, PARTIALLY MET, pain 0-4/10 at worse) IMPAIRMENT: Improve MMT of Right Knee Flexion from 4/5 to 5/5 in 6 weeks (04/29/20, MET, 5/5 throughout R knee) IMPAIRMENT: Improve MMT of Right Knee Extension from 4/5 to 5/5 in 6 weeks (04/29/20, PARTIALLY MET,5-/5) OTHER: Patient will be able to properly demonstrate independence with HEP in 2 weeks. (04/01/20, METI with current HEP) Patient Education: Quality of movement and Verbal HEP with patient demonstrated understanding and verbalized understanding. Post-Treatment Pain Scale: 2 Assessment: Patient had an expected response to treatment. The pt has made good progress in PT withher R knee strength and ROM/flexibility. The pt is transitioning back to running and feels good about continuing with her ex's I at this time. Pt may work some with her head athletic trainer at school more sport specific activity as able. Pt is I with her current HEP and ready for DC at this time. Skilled Intervention demonstrated by modifications of treatment per exercise log including increased load and increased rate and safety interventions per exercise log. Progress towards goals as expected. Plan for Next Visit: Discharge today. Lam Jorge PT STATE LICENSE, [id number] documented in this encounter* Karuna Ibrahim, PT - 03/18/2020 1:[address] 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 She felt muscle soreness afterlast session. She reports compliance with HEP. Objective Treatments: Physical Therapy Exercise Log - 03/18/20 1317 OTHER Precautions/Contraindications 11/02/19 (No Lunges per Dr. Miguel 12/24/19) Notes Visit 36: 1:12 - 1:51 pm Therapeutic Exercise ([id number]) Intervention Bike - x5 min L5 seat 9 Parameters Step Stretches - 20 sec x5 Intervention lat ambulation - 40' x 2 with mini squat Parameters TKE - x20 5 sec hold Intervention Wall squats - x20 OTB Parameters BOSU step ups - x20 fwd/lat Intervention BOSU Rockerboard - x20 fwd/lat no UE support Parameters Ant step downs- 6in 2x15 R stance Intervention Steamboats - x20 L3 bilat Parameters Shuttle squats x20 50# (NT 03-15-20 unavailable) Intervention LAQ - x20 / HS curl - x20 RTB Parameters BOSU squats - x25 1 UE support Intervention Stool Scoots- 20ft x4 Parameters Excursions, small range, R stance- x10 ea Intervention Cone Taps- 0# ball, x10 R stance Additional Exercises Add more exercises? Yes PT Treatment Times Therex Total Time 39 Direct Treatment Time 39 Total Treatment Time 39 Goals: Physical Therapy Ortho Goals: MOBILITY: Patient will be able to complete a full shift of work without difficulty or increase in pain in 6 weeks. MOBILITY: Patient will be able to ambulate on uneven surfaces without difficulty in 6 weeks. (02/23/20, PARTIALLY MET Pt can walk on uneven surfaces, but not steep hills) MOBILITY: Patient will be able to ascend/descend stairs without difficulty in 4 weeks. (02/23/20, Partially MET, can not ascend/descend stairs reciprocally yet) Impairment: Patient will be able to return to sporting and recreational activities by returning to performing running, jumping, and cutting skills without difficulty in 12 weeks. (02/23/20, In Progress Pt is unable to do advanced sporting activity yet) CHANGING MAINTAINING POSITON: Patient will be able to sit for 1 hour without pain in 4 weeks ( 01/22/20, MET able to sit up for 1 hour) CHANGING MAINTAINING POSITON: Patient will be able to change position in bed without pain or difficulty in 4 weeks (01/22/20, MET) SELF CARE: Patient will be able to complete ADL's including bathing, dressing, and hair care without difficulty in 3 weeks. (01/22/20, MET) IMPAIRMENT: Patient will demonstrate improved postural awareness in PT sessions to facilitate mechanical alignment and function in 2 weeks. (01/22/20, MET) IMPAIRMENT: Improve pain from 6/10 to 0/10 during WB and ADL activity in 6 weeks (02/23/20, Partially MET, 4/10 on avg, but gets up to 6/10) IMPAIRMENT: Improve MMT of Right Knee Flexion from 4/5 to 5/5 in 6 weeks (02/23/20, Partially MET 4/5) IMPAIRMENT: Improve MMT of Right Knee Extension from 4/5 to 5/5 in 6 weeks (02/23/20, Partially Met4+/5) IMPAIRMENT: Improve PROM of Right Knee Flexion from 24 degrees to 120 degrees in 6 weeks. (01/22/20, MET 0-135 deg) OTHER: Patient will be able to properly demonstrate independence with HEP in 2 weeks. (01/22/20, MET I with HEP) Patient Education: Quality of movement with patient demonstrated understanding and verbalized understanding. Post-Treatment Pain Scale: 1 Assessment: Patient had an expected response to treatment. Skilled Intervention demonstrated by modifications of treatment per exercise log including increased rate and safety interventions per exercise log. Progress towards goals as expected. Plan for Next Visit: Treatment Visit with focus on continue with strengthening and ROM. Karuna Ibrahim PT STATE LICENSE, [id number] documented in this encounter* DamonDarvin, COR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 - 01/08/2020 2:[address] [facility] DAILY TREATMENT NOTE Today's Date 01/08/2020 Patient Name: Ethan Hernandez Date of : 2005 Current Visit #: 25 Authorized Visits: 30 Case Name: Right Knee PFPS History: Pre-Treatment Pain Scale: 0 Symptoms: gradually improved Functional Diagnosis: 1. Instability of right patellofemoral joint Clinical Information: Subjective: Pt reports knee feeling god with no pain. Objective Knee Right Knee Range of Motion: Flexion Passive: 121 Treatments: Physical Therapy Exercise Log - 01/08/20 1445 OTHER Precautions/Contraindications 11/02/19 (No Lunges per Dr. Miguel 12/24/19) Notes Visit 25: 2:45 - 3:30 PM Therapeutic Exercise ([id number]) Intervention Bike - x5 min L5 seat 10 Parameters Step Stretches - 20 sec x5 (to 121 degrees with lunges) Intervention lat ambulation - 40' x4 Parameters TKE - x10 5 sec hold Intervention Wall squats - x15 OTB Parameters BOSU step ups - x15 fwd/lat Intervention Rockerboard - x20 fwd/lat Parameters Sink ex on airex- x20 Intervention Steamboats - x20 L3 bilat Parameters Shuttle squats x20 50# Intervention LAQ - x20 YTB / HS curl - x20 RTB Parameters BOSU squats - x15 Additional Exercises Add more exercises? Yes PT Treatment Times Therex Total Time 45 Direct Treatment Time 45 Total Treatment Time 45 Goals: Physical Therapy Ortho Goals: MOBILITY: Patient will be able to ambulate for 1 hour in community without difficulty in 6 weeks. MOBILITY: Patient will be able to ambulate on uneven surfaces without difficulty in 6 weeks. MOBILITY: Patient will be able to ascend/descend stairs without difficulty in 4 weeks. Impairment: Patient will be able to return to sporting and recreational activities by returning to performing running, jumping, and cutting skills without difficulty in 12 weeks. CHANGING MAINTAINING POSITON: Patient will be able to sit for 1 hour without pain in 4 weeks CHANGING MAINTAINING POSITON: Patient will be able to change position in bed without pain or difficulty in 4 weeks SELF CARE: Patient will be able to complete ADL's including bathing, dressing, and hair care without difficulty in 3 weeks. IMPAIRMENT: Patient will demonstrate improved postural awareness in PT sessions to facilitate mechanical alignment and function in 2 weeks. IMPAIRMENT: Improve pain from 6/10 to 0/10 during WB and ADL activity in 6 weeks IMPAIRMENT: Improve MMT of Right Knee Flexion from 4/5 to 5/5 in 6 weeks IMPAIRMENT: Improve MMT of Right Knee Extension from 4/5 to 5/5 in 6 weeks IMPAIRMENT: Improve PROM of Right Knee Flexion from 24 degrees to 120 degrees in 6 weeks. OTHER: Patient will be able to properly demonstrate independence with HEP in 2 weeks. Patient Education: Quality of movement with patient demonstrated understanding. Post-Treatment Pain Scale: 0 Assessment: Patient had an expected response to treatment. Skilled Intervention demonstrated by modifications of treatment per exercise log including increased load and safety interventions per exercise log. Progress towards goals as expected. Plan for Next Visit: Treatment Visit with focus on strengthening and stability 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 PTA STATE LICENSE, [id number] documented in this encounter* Jennifer Watts - 03/22/2020 1:[address] [facility] DAILY TREATMENT NOTE Today's Date 03/22/2020 Patient Name: Ethan Hernandez Date of : 2005 Current Visit #: 37 Authorized Visits: 68 Case Name: Right Knee PFPS History: Pre-Treatment Pain Scale: 0 Symptoms: gradually improved Functional Diagnosis: 1. Instability of right patellofemoral joint Clinical Information: Subjective: Pt states she was sore after last treatment but no pain at rest this date. Pt reports popping has improved, states she is having a doctor's appointment on . Pt complains of increased popping and pain during shuttle squat ex. Objective Treatments: Physical Therapy Exercise Log - 03/22/20 1303 OTHER Precautions/Contraindications 11/02/19 (No Lunges per Dr. Miguel 12/24/19) Notes Visit 37: 1:03 - 1:39 pm Therapeutic Exercise ([id number]) Intervention Bike - x5 min L5 seat 9 Parameters Step Stretches - 20 sec x5 Intervention lat ambulation - 40' x 2 with mini squat Parameters TKE - x20 5 sec hold Intervention Wall squats - x20 OTB Parameters BOSU step ups - x20 fwd/lat Intervention BOSU Rockerboard - x20 fwd/lat no UE support Parameters Ant step downs- 6in 2x15 R stance Intervention Steamboats - x20 L3 bilat Parameters Shuttle squats x20 50# (NT 03-22-20 due to pain.) Intervention LAQ - x20 / HS curl - x20 RTB (NT 03-22-20) Parameters BOSU squats - x25 1 UE support Intervention Stool Scoots- 20ft x4 Parameters Excursions, small range, R stance- x10 ea Intervention Cone Taps- 0# ball, x15 R stance Additional Exercises Add more exercises? Yes PT Treatment Times Therex Total Time 36 Direct Treatment Time 36 Total Treatment Time 36 Goals: Physical Therapy Ortho Goals: MOBILITY: Patient will be able to complete a full shift of work without difficulty or increase in pain in 6 weeks. MOBILITY: Patient will be able to ambulate on uneven surfaces without difficulty in 6 weeks. (02/23/20, PARTIALLY MET Pt can walk on uneven surfaces, but not steep hills) MOBILITY: Patient will be able to ascend/descend stairs without difficulty in 4 weeks. (02/23/20, Partially MET, can not ascend/descend stairs reciprocally yet) Impairment: Patient will be able to return to sporting and recreational activities by returning to performing running, jumping, and cutting skills without difficulty in 12 weeks. (02/23/20, In Progress Pt is unable to do advanced sporting activity yet) CHANGING MAINTAINING POSITON: Patient will be able to sit for 1 hour without pain in 4 weeks ( 01/22/20, MET able to sit up for 1 hour) CHANGING MAINTAINING POSITON: Patient will be able to change position in bed without pain or difficulty in 4 weeks (01/22/20, MET) SELF CARE: Patient will be able to complete ADL's including bathing, dressing, and hair care without difficulty in 3 weeks. (01/22/20, MET) IMPAIRMENT: Patient will demonstrate improved postural awareness in PT sessions to facilitate mechanical alignment and function in 2 weeks. (01/22/20, MET) IMPAIRMENT: Improve pain from 6/10 to 0/10 during WB and ADL activity in 6 weeks (02/23/20, Partially MET, 4/10 on avg, but gets up to 6/10) IMPAIRMENT: Improve MMT of Right Knee Flexion from 4/5 to 5/5 in 6 weeks (02/23/20, Partially MET 4/5) IMPAIRMENT: Improve MMT of Right Knee Extension from 4/5 to 5/5 in 6 weeks (02/23/20, Partially Met4+/5) IMPAIRMENT: Improve PROM of Right Knee Flexion from 24 degrees to 120 degrees in 6 weeks. (01/22/20, MET 0-135 deg) OTHER: Patient will be able to properly demonstrate independence with HEP in 2 weeks. (01/22/20, MET I with HEP) Patient Education: Quality of movement with patient demonstrated understanding and verbalized understanding. Post-Treatment Pain Scale: 3 Assessment: Patient had an expected response to treatment. Skilled Intervention demonstrated by modifications of treatment per exercise log including assessment of patient's response and safety interventions per exercise log. Progress towards goals as expected and Pt reports pain 7-6/10 with Ant step downs, excursions, and TKE and rates pain post ex 5-4/10. Plan for Next Visit: Treatment Visit with focus on pain management, strength and mobility. Jennifer VALLE No licensure found in state: [place] Treatment directed and supervised by supervising therapist: Natali Hope PTA. documented in this encounter* Phil Stern PTA - 01/15/2020 2:[address] [facility] DAILY TREATMENT NOTE Today's Date 01/15/2020 Patient Name: Ethan Hernandez Date of : 2005 Current Visit #: 27 Authorized Visits: 30 Case Name: Right Knee PFPS History: Pre-Treatment Pain Scale: 1 Symptoms: stabilized Functional Diagnosis: 1. Instability of right patellofemoral joint Clinical Information: Subjective: Pt reports min pain coming in today Objective Pt demod flex AAROM 130 deg Treatments: Physical Therapy Exercise Log - 01/15/20 1447 OTHER Precautions/Contraindications 11/02/19 (No Lunges per Dr. Miguel 12/24/19) Notes Visit 27: [id number] Therapeutic Exercise (69413) Intervention Bike - x5 min L5 seat 10 Parameters Step Stretches - 20 sec x5 Intervention lat ambulation - 40' x4 Parameters TKE - x10 5 sec hold Intervention Wall squats - x15 OTB Parameters BOSU step ups - x20 fwd/lat Intervention BOSU Rockerboard - x20 fwd/lat Parameters Sink ex on airex- x20 bilat without UE for balance Intervention Steamboats - x20 L3 bilat Parameters Shuttle squats x20 50# Intervention LAQ - x20 YTB / HS curl - x20 RTB Parameters BOSU squats - x25 Additional Exercises Add more exercises? Yes PT Treatment Times Therex Total Time 40 Direct Treatment Time 40 Total Treatment Time 43 Goals: Physical Therapy Ortho Goals: MOBILITY: Patient will be able to ambulate for 1 hour in community without difficulty in 6 weeks. MOBILITY: Patient will be able to ambulate on uneven surfaces without difficulty in 6 weeks. MOBILITY: Patient will be able to ascend/descend stairs without difficulty in 4 weeks. Impairment: Patient will be able to return to sporting and recreational activities by returning to performing running, jumping, and cutting skills without difficulty in 12 weeks. CHANGING MAINTAINING POSITON: Patient will be able to sit for 1 hour without pain in 4 weeks CHANGING MAINTAINING POSITON: Patient will be able to change position in bed without pain or difficulty in 4 weeks SELF CARE: Patient will be able to complete ADL's including bathing, dressing, and hair care without difficulty in 3 weeks. IMPAIRMENT: Patient will demonstrate improved postural awareness in PT sessions to facilitate mechanical alignment and function in 2 weeks. IMPAIRMENT: Improve pain from 6/10 to 0/10 during WB and ADL activity in 6 weeks IMPAIRMENT: Improve MMT of Right Knee Flexion from 4/5 to 5/5 in 6 weeks IMPAIRMENT: Improve MMT of Right Knee Extension from 4/5 to 5/5 in 6 weeks IMPAIRMENT: Improve PROM of Right Knee Flexion from 24 degrees to 120 degrees in 6 weeks. OTHER: Patient will be able to properly demonstrate independence with HEP in 2 weeks. Patient Education: Verbal HEP with patient verbalized understanding. Post-Treatment Pain Scale: 1 Assessment: Patient had an expected response to treatment. Pt had some mild increased sx's with squat based ex's and other wbing flexion ex's Skilled Intervention demonstrated by modifications of treatment per exercise log including assessment of patient's response and safety interventions per exercise log. Progress towards goals as expected. Plan for Next Visit: Treatment Visit with focus on progressing as tolerated Phil Stern PTA STATE LICENSE, [id number] documented in this encounter* Natali Hope PTA - 01/19/2020 2:[address] [facility] DAILY TREATMENT NOTE Today's Date 01/19/2020 Patient Name: Ethan Hernandez Date of : 2005 Current Visit #: 28 Authorized Visits: 30 Case Name: Right Knee PFPS History: Pre-Treatment Pain Scale: 0 Symptoms: gradually improved Functional Diagnosis: 1. Instability of right patellofemoral joint Clinical Information: Subjective: Pt reports she has been having increased popping in R knee with squatting and walking after rising from seated position. Pt states, I just want to go up and down stairs normal. Objective Treatments: Physical Therapy Exercise Log - 01/19/20 1445 OTHER Precautions/Contraindications (S) 11/02/19 (No Lunges per Dr. Miguel 12/24/19) Notes Visit 28: 2:45-3:25PM Therapeutic Exercise (36145) Intervention Bike - x5 min L5 seat 10 Parameters Step Stretches - 20 sec x5 Intervention lat ambulation - 40' x4 Parameters TKE - x10 5 sec hold Intervention Wall squats - x15 OTB Parameters BOSU step ups - x20 fwd/lat Intervention BOSU Rockerboard - x20 fwd/lat Parameters Ant step downs- 4in and 6in 2x10 R stance Intervention Steamboats - x20 L3 bilat Parameters Shuttle squats x20 50# (hold 01-19-20 due to increased popping) Intervention LAQ - x20 YTB / HS curl - x20 RTB Parameters BOSU squats - x25 Additional Exercises Add more exercises? Yes PT Treatment Times Therex Total Time 40 Direct Treatment Time 40 Total Treatment Time 40 Goals: Physical Therapy Ortho Goals: MOBILITY: Patient will be able to ambulate for 1 hour in community without difficulty in 6 weeks. MOBILITY: Patient will be able to ambulate on uneven surfaces without difficulty in 6 weeks. MOBILITY: Patient will be able to ascend/descend stairs without difficulty in 4 weeks. Impairment: Patient will be able to return to sporting and recreational activities by returning to performing running, jumping, and cutting skills without difficulty in 12 weeks. CHANGING MAINTAINING POSITON: Patient will be able to sit for 1 hour without pain in 4 weeks CHANGING MAINTAINING POSITON: Patient will be able to change position in bed without pain or difficulty in 4 weeks SELF CARE: Patient will be able to complete ADL's including bathing, dressing, and hair care without difficulty in 3 weeks. IMPAIRMENT: Patient will demonstrate improved postural awareness in PT sessions to facilitate mechanical alignment and function in 2 weeks. IMPAIRMENT: Improve pain from 6/10 to 0/10 during WB and ADL activity in 6 weeks IMPAIRMENT: Improve MMT of Right Knee Flexion from 4/5 to 5/5 in 6 weeks IMPAIRMENT: Improve MMT of Right Knee Extension from 4/5 to 5/5 in 6 weeks IMPAIRMENT: Improve PROM of Right Knee Flexion from 24 degrees to 120 degrees in 6 weeks. OTHER: Patient will be able to properly demonstrate independence with HEP in 2 weeks. Patient Education: Quality of movement and Verbal HEP with patient demonstrated understanding and verbalized understanding. Post-Treatment Pain Scale: 0 Assessment: Patient had an expected response to treatment. Skilled Intervention demonstrated by modifications of treatment per exercise log including increased load, increased intensity, increased volume and assessment of patient's response and safety interventions per exercise log. Progress towards goals as expected and avoided ex that caused popping in R knee. Pt compensating bydropping L hip reaching for next step down to decrease R knee flexion.. Plan for Next Visit: Progress Note with focus on strength and stability. Natali Hope PTA STATE LICENSE, [id number] documented in this encounter* 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, COR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 - 11/20/2019 3:[address] [facility] DAILY TREATMENT NOTE Today's Date 11/20/2019 Patient Name: Ethan Hernandez Date of : 2005 Current Visit #: 7 Authorized Visits: 30 Case Name: Right Knee PFPS History: Pre-Treatment Pain Scale: 2 Symptoms: gradually improved Functional Diagnosis: 1. Instability of right patellofemoral joint Clinical Information: Subjective: Pt reports no new symptoms and minimal pain. Objective Treatments: Physical Therapy Exercise Log - 11/20/19 1525 OTHER Precautions/Contraindications (S) 11/02/19 Evaluation PROM 0-30 degrees for one week, 0-45 week two,0-60 week three, 0-90 week 4 Notes Visit 7; 3:25 - 4:25 PM Therapeutic Exercise (16471) Intervention Patient Education provided: POC based on condition specific prognosis. HEP and attendance compliance and importance for improvement of symptoms. 10 min Parameters Knee Flexion PROM x40 min 0- 60 degrees Intervention Heel slides 10 sec x15 Additional Exercises Add more exercises? Yes Modalities Modalities Vasopneumatic Treatment Parameters x10 min med compression, 36 degrees PT Treatment Times Therex Total Time 45 Modalities Total Time 10 Direct Treatment Time 55 Total Treatment Time 55 Goals: Physical Therapy Ortho Goals: MOBILITY: Patient will be able to ambulate for 1 hour in community without difficulty in 6 weeks. MOBILITY: Patient will be able to ambulate on uneven surfaces without difficulty in 6 weeks. MOBILITY: Patient will be able to ascend/descend stairs without difficulty in 4 weeks. Impairment: Patient will be able to return to sporting and recreational activities by returning to performing running, jumping, and cutting skills without difficulty in 12 weeks. CHANGING MAINTAINING POSITON: Patient will be able to sit for 1 hour without pain in 4 weeks CHANGING MAINTAINING POSITON: Patient will be able to change position in bed without pain or difficulty in 4 weeks SELF CARE: Patient will be able to complete ADL's including bathing, dressing, and hair care without difficulty in 3 weeks. IMPAIRMENT: Patient will demonstrate improved postural awareness in PT sessions to facilitate mechanical alignment and function in 2 weeks. IMPAIRMENT: Improve pain from 6/10 to 0/10 during WB and ADL activity in 6 weeks IMPAIRMENT: Improve MMT of Right Knee Flexion from 4/5 to 5/5 in 6 weeks IMPAIRMENT: Improve MMT of Right Knee Extension from 4/5 to 5/5 in 6 weeks IMPAIRMENT: Improve PROM of Right Knee Flexion from 24 degrees to 120 degrees in 6 weeks. OTHER: Patient will be able to properly demonstrate independence with HEP in 2 weeks. Patient Education: Quality of movement with patient demonstrated understanding. Post-Treatment Pain Scale: 2 Assessment: Patient had an expected response to treatment. Skilled Intervention demonstrated by modifications of treatment per exercise log including increased load and safety interventions per exercise log. Progress towards goals as expected. Plan for Next Visit: Treatment Visit with focus on PROM to 90degrees per protocol 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 PTA STATE LICENSE, [id number] documented in this encounter* Nury Agudelo MA - 06/18/2018 1:22 PM EDT MRI OF RIGHT KNEE HAS BEEN APPROVED AUTHORIZATION # [id number] FROM June 09, 2018 TO JULY 09, 2018 documented in this encounter Chief Complaint and Reason for Visit Chief Complaint Admit Date 30 wk OB DENIS/SM November 19, 2024 12:57pm Reason for Visit Admit Date Bipolar 2 disorder November 19, 2024 12:57pm [facility] 12:57pm Fibromyalgia November 19, 2024 12:57pm Gastroparesis November 19, 2024 12:57pm GERD (gastroesophageal reflux disease) S eptember 2024 12:57pm Normal echocardiogram November 19 12:57pm Personal history of kidney stones Septem chino 2024 12:57pm POTS (postural orthostatic tachycardia s yndrome) November 19, 2024 12:57pm November 19, 2024 12:57pm Supervision of high-risk Mayra barreto 2024 12:57pm UTI in November 19, 2024 12:57pm Chief Complaint Admit Date 30 wk OB DENIS/SM November 19, 2024 12:57pm 32 WK 6D OB December 07, 2024 8: 14am Reason for Visit Admit Date Bipolar 2 disorder November 19, 2024 12:57pm Yola-Danlos syndrome type III Septembe r 2024 12:57pm Fibromyalgia November 19, 2024 12:57pm Gastroparesis November 19, 2024 12:57pm GERD (gastroesophageal reflux disease) S eptember 2024 12:57pm Normal echocardiogram November 19 12:57pm Personal history of kidney stones Septem chino 2024 12:57pm POTS (postural orthostatic tachycardia s yndrome) November 19, 2024 12:57pm November 19, 2024 12:57pm Supervision of high-risk Septe mber 2024 12:57pm UTI in November 19, 2024 12:57pm Bipolar 2 disorder December 07, 2024 8: 14am Yola-Danlos syndrome type III December 07, 2024 8:14am Gastroparesis December 07, 2024 8: 14am Headache in December 07, 2024 8:14am Marginal insertion of umbilical cord Oct parminder 2024 8:14am Normal echocardiogram December 07, 2024 8:14am Personal history of kidney stones Octobe r 2024 8:14am Positive GBS test December 07, 2024 8: 14am POTS (postural orthostatic tachycardia s yndrome) December 07, 2024 8:14am December 07, 2024 8: 14am Supervision of high-risk Octob er 2024 8:14am UTI in December 07, 2024 8: 14am Additional Source Comments INFORMATION SOURCE (unrecogn ized section and content) DATE CREATED AUTHOR 08/27/2017 [facility] DATE CREATED AUTHOR AUTHOR'S ORGANIZ ATION 12/09/2018 [facility] DATE CREATED AUTHOR AUTHOR'S ORGANIZ ATION 12/09/2018 [facility] DATE CREATED AUTHOR AUTHOR'S ORGANIZ ATION 12/09/2018 [facility] DATE CREATED AUTHOR AUTHOR'S ORGANIZ ATION 12/09/2018 [facility] DATE CREATED AUTHOR AUTHOR'S ORGANIZ ATION 10/11/2019 [facility] DATE CREATED AUTHOR AUTHOR'S ORGANIZ ATION 08/12/2022 [facility] DATE CREATED AUTHOR AUTHOR'S ORGANIZ ATION 01/20/2023 [facility] DATE CREATED AUTHOR AUTHOR'S ORGANIZ ATION 04/07/2023 [facility] DATE CREATED AUTHOR AUTHOR'S ORGANIZ ATION 05/22/2024 [facility] DATE CREATED AUTHOR AUTHOR'S ORGANIZ ATION 07/10/2024 [facility] DATE CREATED AUTHOR AUTHOR'S ORGANIZ ATION 10/28/2024 [facility] DATE CREATED AUTHOR AUTHOR'S ORGANIZ ATION 11/04/2024 [facility] DATE CREATED AUTHOR AUTHOR'S ORGANIZ ATION 11/06/2024 [facility] DATE CREATED AUTHOR AUTHOR'S ORGANIZ ATION 11/25/2024 [facility] DATE CREATED AUTHOR AUTHOR'S ORGANIZ ATION 12/09/2024 [facility] DATE CREATED AUTHOR AUTHOR'S ORGANIZ ATION 12/12/2024 [facility] Reason for Visit (unrecogniz ed section and content) Reason Comments Physical Therapy Specialty Diagnoses / Procedures Referred By Contac t Referred To Contact Rehabilitation Diagnoses S/P reconstruction of ligament of knee Sulema Lazar MD [address] [place] [address] Op Physical Therapy [address] [place] [address] Referral ID Status Reason Start Date Expiration Date V isits Requested Visits Authorized [id number] Authorized 08/21/2022 08/21/2023 30 30 Reason Comments Anxiety Reason Comments Neck Swelling states that she has had many neck injuries in the past and the past week has had pain and swelling in neck, mom states that she has yola danlos syndrome and has an appointment with a specialist on saturday Neck Pain Reason Comments Well Child No Show Reason Comments Pain Injury Reason Comments Nausea Reason Comments Referral Reason Comments Emesis Patient states that for two weeks she has not been able to hold anything down and that she has had vomiting. Reason Comments Emesis Dehydration Status Reason Specialty Diagnoses / Procedures Referre d By Contact Referred To Contact Closed Radiology Diagnoses Knee meniscus pain, right Tear of MCL (medial collateral ligament) of knee, right, initial encounter Procedures MR Knee Right Without Contrast Alexis Briggs MD [address] [facility] [address] [place] [address] Reason Comments Order Request Reason Comments Sore Throat Reason Comments Other Reason Comments Shoulder Pain LEFT Reason Comments Shoulder Pain left, pt has EDS and states that the shoulder is grinding, and it is coming out of socket and is causing pain to her neck and back as well. pt is seeing ortho at [facility] next month. mom is requesting MRI Reason Comments Results Reason Comments Rectal Bleeding Reason Comments Headache Fatigue Sore Throat Reason Comments Headache s/s x 1 month Status Reason Specialty Diagnoses / Procedures Referred By Contact Referred To Contact New Request Diagnoses Chronic fatigue Procedures CHEKO MULTIPLEX SCRN WITH REFLEX Milton Leos MD [address] [place] [address] Status Reason Specialty Diagnoses / Procedures Referred By Contact Referred To Contact Closed Magnetic Resonan ce Imaging Diagnoses Intractable chronic paroxysmal hemicrania Procedures MRI BRAIN WITHOUT CONTRAST [place] MRI BRAIN Milton Leos MD [address] [place] [address] [facility] [address] [place] [address] Reason Comments Abdominal Pain Emesis Reason Comments Urinary Pain Reason Comments Pain Imaging Results Reason Comments Pain Status Reason Specialty Diagnoses / Procedures Re ferred By Contact Referred To Contact Closed Orthopedic Surge ry / Sports Medicine Diagnoses Instability of right patellofemoral joint Yumiko Hancock CNP [address] [address] Mary Miguel MD [address] [place] [address] Status Reason Specialty Diagnoses / Procedures Referred By Contact Referred To Contact Authorized Rehabilitation Diagnoses Instability of right patellofemoral joint Mary Miguel MD [address] [place] [address] Op Physical Therapy [address] [place] [address] Reason Comments Follow-up Reason Comments Well Child Status Reason Specialty Diagnoses / Procedures Re ferred By Contact Referred To Contact Closed Rehabilitation Diagnoses Instability of right patellofemoral joint Mary Miguel MD [address] [place] [address] [facility] Physical Therapy [address] [place] [address] Reason Comments Labs Only NV UA Reason Comments Urinary Pain NV UA Status Reason Specialty Diagnoses / Procedures Re ferred By Contact Referred To Contact Diagnoses 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] Procedures OK OSTEOTOMY PROX TIB,<EPIPHY CLOSUR [place] LATERAL RETINACULAR RELEASE OPEN Mary Miguel MD [address] [place] [address] Reason Comments Chest Pain Status Reason Specialty Diagnoses / Procedures Referred By Contact Referred To Contact Authorized Rehabilitation Diagnoses Instability of right patellofemoral joint Mary Miguel MD [address] [place] [address] [facility] Physical Therapy [address] [place] [phone] Status Reason Specialty Diagnoses / Procedures Referred By Contact Referred To Contact Closed Magnetic Resonan ce Imaging Diagnoses Instability of shoulder joint, 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, left shoulder Procedures MRI SHOULDER LEFT WITHOUT CONTRAST [place] MRI, JOINT UPPER EXTREM Milton Leos MD [address] [place] [address] [facility] [address] [place] [address] Reason Comments Abdominal Pain no regular BM in ove r a month. Have tried several ways, enemas and laxitives with no results. Reason Comments Labs Only NV - u/a Reason Comments Follow-up Pain Joint Swelling Reason Comments Cough pt tested negative f or COVID yesterday, s/s started Saturday Sore Throat testednegative for s trep yesterday Ear Pain bilat ear pain since Saturday Reason Comments recurrent kidney stones Specialty Diagnoses / Procedures Referred By Contac t Referred To Contact Urology Diagnoses Recurrent kidney stones Hematuria, unspecified type Meme Gimenez, SOLVENT PLANT OPERATOR [address] [place] [address] Aaron Lund MD [employer] [place] [address] Referral ID Status Reason Start Date Expiration Date V isits Requested Visits Authorized [id number] Closed Specialty Services Required/Susie ent's Best Interest 11/14/2021 11/14/2022 1 1 Reason Comments Rapid Heart Rate Sweats Fatigue Reason Comments Shaking 2 weeks, worse x 24 hrs Fatigue Specialty Diagnoses / Procedures Referred By Contac t Referred To Contact Cardiovascular Medicine Procedures HOLTER MONITOR - 24 HOUR Qiana Torre PA-C [address] [place] [address] [address] [facility] Artist Color Separation [address] [place] [address] Referral ID Status Reason Start Date Expiration Date Visits Re quested Visits Authorized [id number] Closed 01/03/2022 01/28/2023 1 1 Reason Comments Consult Abnormal breast US Specialty Diagnoses / Procedures Referred By Contac t Referred To Contact General Surgery Diagnoses Abnormal finding on imaging Breast lump in upper outer quadrant Family history of breast cancer Meme Gimenez, SOLVENT PLANT OPERATOR [address] [place] [address] Dallin More MD [address] [place] [address] Referral ID Status Reason Start Date Expiration Date V isits Requested Visits Authorized [id number] Closed Specialty Services Required/Susie ent's Best Interest 04/05/2022 04/05/2023 1 1 Specialty Diagnoses / Procedures Referred By Contac t Referred To Contact Gastroenterology Diagnoses Chronic constipation Meme Gimenez, SOLVENT PLANT OPERATOR [address] [place] [address] Anabelle, Yina Bhavya, SOLVENT PLANT OPERATOR [address] [place] [address] Referral ID Status Reason Start Date Expiration Date Visits Re quested Visits Authorized [id number] Closed 03/26/2022 03/26/2023 1 1 Reason Comments Follow-up Left breast biopsy r esults Reason Comments Knee Injury R knee gave out whil e walking up stairs yesterday, patient felt pop and has screws in knee from previous surgery, states she has pain and difficulty ambulating since. 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 DRAGAN: Fell ~ 1 month ago. Reports patella dislocated. Reports continual dislocation prior to fall. Reports sharp pain w/pivoting, squatting. Pain located behind knee cap and jt line. Reports buckling. Tx: brace, ice, compression socks due to POTS Hx: sx 2020 patella dislocation, EDS Specialty Diagnoses / Procedures Referred By Contac t Referred To Contact Diagnoses Right knee pain, unspecified chronicity Procedures XR KNEE RIGHT 3 VIEWS XR KNEE RIGHT 4+ VIEWS Sulema Lazar MD [address] [place] [address] Referral ID Status Reason Start Date Expiration Date V isits Requested Visits Authorized [id number] New Request 06/14/2022 07/09/2023 1 1 Specialty Diagnoses / Procedures Referred By Contac t Referred To Contact Diagnoses Right knee pain, unspecified chronicity Procedures MRI KNEE RIGHT WITHOUT CONTRAST [place] MRI LOWER EXTREM JT, W/O CONTRAST Sulema Lazar MD [address] [place] [address] Referral ID Status Reason Start Date Expiration Date Visits Re quested Visits Authorized [id number] Closed 06/14/2022 07/09/2023 1 1 Reason Comments Follow-up 17 yo f/u R knee hector n. LISANDRO 06/14/22. MRI results. Reports having more severe pain since prev visit. Reports no new injuries. Tx: Tyl, IB profen, ice, wearing brace with extended walking. MRI Results 17 yo f/u R knee hector n. LISANDRO 06/14/22. MRI results. Reports having more severe pain since prev visit. Reports no new injuries. Tx: Tyl, IB profen, ice, wearing brace with extended walking. 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 Lazar (DOS 08/06/22). Patient reports knee is doing good. Starts PT next week but has been doing daily HEP. Denies any complications. No questions or concerns. Specialty Diagnoses / Procedures Referred By Contac t Referred To Contact Diagnoses S/P knee surgery Procedures XR KNEE RIGHT 2 VIEWS Kevin Luna, PAC [address] [place] [address] Referral ID Status Reason Start Date Expiration Date V isits Requested Visits Authorized [id number] New Request 08/22/2022 09/16/2023 1 1 Reason Comments New Patient Left breast Fibroade noma family hx breast cancer. Does report increase in size and pain. Specialty Diagnoses / Procedures Referred By Contac t Referred To Contact Surgical Oncology Diagnoses New Patient- surg eval for Fibroadenoma w/ PAS- Pt would like removed, [facility] in [place]- 07/05- alin missed appt 06/22/22 Procedures NEW PATIENT Meme Gimenez, PHARMACOLOGY TEACHER-[employer] OPERATOR [address] [facility] [address] [place] [address] Sahil Brunson III, MD [address] [facility] 3rd Floor, [address] [place] [address] Referral ID Status Reason Start Date Expiration Date V isits Requested Visits Authorized [id number] New Request 09/13/2022 10/08/2023 1 1 Specialty Diagnoses / Procedures Referred By Contac t Referred To Contact Diagnoses 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breast, left Procedures US BREAST LIMITED UNILATERAL LEFT Kalyynn Parish, PHARMACOLOGY TEACHER-[employer] OPERATOR [address] [facility] [place] [address] Referral ID Status Reason Start Date Expiration Date V isits Requested Visits Authorized [id number] New Request 09/13/2022 10/08/2023 1 1 Specialty Diagnoses / Procedures Referred By Contac t Referred To Contact Rehabilitation Diagnoses S/P reconstruction of ligament of knee Sulema Lazar MD [address] [place] [address] [facility] [address] [place] [address] Reason Comments Post Op Visit 7w s/p R knee scope, MPFL reconstruction with allograft w/ Dr. Lazar (DOS 08/06/22). Knee is doing well. PT 3x per wk. ROM has improved. Working on strength. Reason Comments Follow-up 3m 2d FU for R knee MPFL reconstruction. Feeling good. No issues. PT - 3x week now 2x - last appointment is last week unless told to continue. Feels like she is at 65% - lacking strength. Reason Comments Abdominal Pain Lower abdominal cram ping and pelvic pain. Nausea. States on period but pain is worse than normal. Specialty Diagnoses / Procedures Referred By Contac t Referred To Contact Diagnoses Pelvic pain in female Abnormal uterine bleeding Pelvic pain in female [R10.2] Abnormal uterine bleeding [N93.9] Procedures OK LAP,FULGURATE/EXCISE LESIONS EXCISION/FULGURATION LESION OVARY/PELVIC VISERA/PERITONEAL SURFACE LAPAROSCOPIC Jana Sanchez MD [address] [place] [address] Referral ID Status Reason Start Date Expiration Date Visits Re quested Visits Authorized [id number] 06/13/2023 1 1 Reason Comments Abdominal Pain Reason Comments Abdominal Pain Patient presents to ED with abdominal cramps. Patient states I was 4 days late on my period and it started today and I am bleeding heavy and cramping. Reason Comments Chest Pain Pt to ED with c/o CP , SOB, and left arm pain x 1 day. History of POTS, and states I had a hole in my heart, but I'm not sure if that healed up. Pt also c/o passing out last night. Rates CP /. No meds taken prior to arrival. Reason Comments Cough Reason Comments Sinus Infection Sinus pressure, sinu s pain, right ear pain, and fatigue x2days. Reason Comments Ultrasound Specialty Diagnoses / Procedures Referred By Contac t Referred To Contact Diagnoses Yola-Danlos syndrome Procedures US OB DETAILED ANATOMY Huy Flores MD [address] [facility] [address]th [place] [address] Phone: tel: fax: Referral ID Status Reason Start Date Expiration Date V isits Requested Visits Authorized [id number] New Request 07/09/2024 08/03/2025 1 1 Reason Comments Ultrasound Maternal Medicine Consultation (Co nsult) Specialty Diagnoses / Procedures Referred By Contac t Referred To Contact GATEHOUSE ATTENDANT Diagnoses Yola-Danlos syndrome Jana Sanchez MD [address] [place] [address] Phone: tel: fax: [facility] [address] [place] [address] Referral ID Status Reason Start Date Expiration Date V isits Requested Visits Authorized [id number] New Request 07/07/2024 08/01/2025 1 1 Reason Comments Dizziness Pt reports increased fatigue and dizziness since last week. Reports feeling like she could fall asleep all the time. Also has left sided back pain and headache. Specialty Diagnoses / Procedures Referred By Contac t Referred To Contact Anne-Marie Bernstein MD [address] [place] [address] Phone: tel: fax: [facility] [address] [place] [address] Referral ID Status Reason Start Date Expiration Date Visits Re quested Visits Authorized [id number] 1 1 Reason Comments New Patient Can't be outside whe n hot with her POTS while . Higher resting heart rate while 70's-80's. Specialty Diagnoses / Procedures Referred By Contac t Referred To Contact Adult Congenital Heart Disease Diagnoses POTS (postural orthostatic tachycardia syndrome) Loyd Prado MD [address] [place] [phone] Phone: tel: fax: Referral ID Status Reason Start Date Expiration Date V isits Requested Visits Authorized [id number] New Request 09/01/2024 09/26/2025 1 1 Specialty Diagnoses / Procedures Referred By Contac t Referred To Contact Diagnoses POTS (postural orthostatic tachycardia syndrome) Yola-Danlos syndrome type III Procedures US OB GROWTH/DATING > 14WEEKS Loyd Prado MD [address] [place] [phone] Phone: tel: fax: Referral ID Status Reason Start Date Expiration Date V isits Requested Visits Authorized [id number] New Request 09/01/2024 09/26/2025 1 1 Reason Comments Ultrasound Routine Visit MFM co-manage Fabien Huitron MD - 06/16/2018 5:57 PM Madison Cortez RN - 06/16/2018 5:34 PM Mandy Ellis RN - 06/22/2018 5:50 PM Juancho Black RN - 06/22/2018 5:22 PM EDT ED Notes (unrecognized secti on and content) ED PROVIDER NOTE [facility] NAME: Ethan Hernandez AGE: 13 y.o. : 2005 VISIT DATE: 06/16/2018 CSN: [id number] PCP: Milton Leos MD Chief Complaint Patient presents with Emesis Patient states that for two weeks she has not been able to hold anything down and that she has had vomiting. The patient is here for vomiting because of concern for possible dehydration. The duration is 2 weeks. She keeps on very little. 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 [facility] but will be establishing in [place] for another opinion. Also in the last 2 weeks or so her appearing heart rates are higher than before, previously documented rapid and slow heart rates are higher than before previously 150s now sometimes 200s associated with dizziness and some visual blurring. This is documented recently by her apple wrist watch. She admits to abdominal pain, RUQ, 2 weeks duration, constant, like she is full from eating. There is also a bilateral facial rash sometimes worse on the right associated with right headache retro-orbital and right ptosis. There is no fever, no headache, back pain, chest pain, diarrhea or constipation. Her bowels are always loose. She is weaker than usual and requires some assistance to walk in school since this illness. Past Medical History: Diagnosis Date Anemia Arrhythmia Chest pain Depression Down syndrome Fatigue Shortness of breath Past Surgical History: Procedure Laterality Date APPENDECTOMY LAPAROSCOPIC 12/04/2017 ..................Dr. Jain TONSILLECTOMY Family History Problem Relation Age of Onset Stroke Mother Diabetes Maternal Grandmother Hyperlipidemia Maternal Grandmother Hypertension Maternal Grandmother Hyperlipidemia Maternal Grandfather Hypertension Maternal Grandfather Autism Brother Social History Socioeconomic History Marital status: Single Spouse name: Not on file Number of children: Not on file Years of education: Not on file Highest education level: Not on file Social Needs Financial resource strain: Not on file Food insecurity - worry: Not on file Food insecurity - inability: Not on file Transportation needs - medical: Not on file Transportation needs - non-medical: Not on file Occupational History Not on file Tobacco Use Smoking status: Never Smoker Smokeless tobacco: Never Used Substance and Sexual Activity Alcohol use: No Drug use: No Sexual activity: Not on file Other Topics Concern Not on file Social History Narrative Not on file Previous Medications Medication Sig FLUoxetine (PROZAC) 10 MG tablet Take 10 mg by mouth daily . acetaminophen (TYLENOL) 325 MG tablet Take 650 mg by mouth . norethindrone (MICRONOR) 0.35 mg tablet Take 0.35 mg by mouth daily . Allergies Allergen Reactions Latex Dermatitis Coconut Oil Rash Silk Tape Rash Review of Systems Constitutional: Negative for fever. HENT: Negative for voice change. Respiratory: Negative for shortness of breath. States difficult to take a deep breath. Cardiovascular: Negative for chest pain. Gastrointestinal: Positive for vomiting. Negative for diarrhea. Genitourinary: Negative for difficulty urinating and hematuria. Neurological: Negative for dizziness. All other systems reviewed and are negative. Patient Vitals for the past 24 hrs: BP Temp Temp src Pulse Resp SpO2 06/16/18 1731 119/72 98.4 F (36.9 C) Oral 59 16 99 % Physical Exam Constitutional: She is oriented to person, place, and time. She appears well-developed and well-nourished. No distress. HENT: Head: Normocephalic and atraumatic. Right Ear: External ear normal. Nose: Nose normal. Mouth/Throat: Oropharynx is clear and moist. Eyes: Conjunctivae and EOM are normal. No scleral icterus. Neck: Normal range of motion. Neck supple. Cardiovascular: Normal rate, regular rhythm, normal heart sounds and intact distal pulses. Pulmonary/Chest: Effort normal and breath sounds normal. Abdominal: Soft. Bowel sounds are normal. She exhibits no mass. There is no tenderness. There is no guarding. Musculoskeletal: She exhibits no edema, tenderness or deformity. Presently increased joint laxity Neurological: She is alert and oriented to person, place, and time. No cranial nerve deficit. Coordination normal. Skin: Skin is warm and dry. Psychiatric: She has a normal mood and affect. Her behavior is normal. Vitals reviewed. Laboratory & Radiographic Imaging (if done): No results found for this visit on 06/16/18. No orders to display Procedures MDM Number of Diagnoses or Management Options Diagnosis management comments: Course of treatment received IV fluids and Zofran feels better. Results are discussed with mother as well as follow-up plans and indications for return and states understands and agrees. Amount and/or Complexity of Data Reviewed Clinical lab tests: reviewed Risk of Complications, Morbidity, and/or Mortality Presenting problems: moderate Diagnostic procedures: moderate Management options: moderate Clinical Impression: No diagnosis found. ED Disposition None Follow-up Information Follow-up information has not been specified. Contact information for after-discharge care Follow-up information has not been specified. Fabien Huitron MD 06/16/18 1855 Patient to room 2 for c/o vomiting for 2 weeks. States that this is her disease that is acting up. No distress noted at this time. Call light in reach. Family at cart side. documented in this encounter Pt refuses tylenol and zofran. States zofran makes her feel more nauseated and she cant take anything by mouth dr siddiqui aware Physician at bedside. Possible transfer to [place]. Mother unsure if she wants child transferred[facility] ED PROVIDER NOTE [facility] NAME: Ethan Hernandez AGE: 13 y.o. : 2005 VISIT DATE: 06/22/2018 CSN: [id number] PCP: Milton Leos MD Chief Complaint Patient presents with Emesis Dehydration Patient presents to the emergency room for dehydration due to nausea and vomiting. Patient was evaluated in the emergency room here on Saturday, June 16, 2018 and by specialist at the [facility] on Monday June 18, 2018. Family was instructed to bring the patient to the emergency room if she peed less than 3 times in a day and yesterday she only peed twice and only once so far today. Past Medical History: Diagnosis Date Anemia Arrhythmia Chest pain Depression Yola-Danlos disease Fatigue Fibromyalgia Shortness of breath Past Surgical History: Procedure Laterality Date ADENOIDECTOMY APPENDECTOMY APPENDECTOMY LAPAROSCOPIC 12/04/2017 ..................Dr. Jain TONSILLECTOMY Family History Problem Relation Age of Onset Stroke Mother Diabetes Maternal Grandmother Hyperlipidemia Maternal Grandmother Hypertension Maternal Grandmother Hyperlipidemia Maternal Grandfather Hypertension Maternal Grandfather Autism Brother Social History Socioeconomic History Marital status: Single Spouse name: Not on file Number of children: Not on file Years of education: Not on file Highest education level: Not on file Social Needs Financial resource strain: Not on file Food insecurity - worry: Not on file Food insecurity - inability: Not on file Transportation needs - medical: Not on file Transportation needs - non-medical: Not on file Occupational History Not on file Tobacco Use Smoking status: Never Smoker Smokeless tobacco: Never Used Substance and Sexual Activity Alcohol use: No Drug use: No Sexual activity: Not on file Other Topics Concern Not on file Social History Narrative Not on file Previous Medications Medication Sig acetaminophen (TYLENOL) 325 MG tablet Take 650 mg by mouth . FLUoxetine (PROZAC) 10 MG tablet Take 10 mg by mouth daily . norethindrone (MICRONOR) 0.35 mg tablet Take 0.35 mg by mouth daily . ondansetron (ZOFRAN ODT) 4 MG disintegrating tablet Dissolve 1 (one) tablet (4 mg total) on top of tongue every 6 (six) hours as needed for nausea (HOME PACK) . ondansetron (ZOFRAN) 4 MG tablet Take 1 (one) tablet (4 mg total) by mouth every 4 (four) hours as needed for nausea . Allergies Allergen Reactions Latex Dermatitis Coconut Oil Rash Silk Tape Rash Review of Systems Gastrointestinal: Positive for nausea and vomiting. Genitourinary: Positive for decreased urine volume. Patient Vitals for the past 24 hrs: BP Temp Temp src Pulse Resp SpO2 Height Weight 06/22/18 1758 109/68 (!) 47 100 % 06/22/18 1623 5' 8 61.7 kg (136 lb) 06/22/18 1604 115/75 98.3 F (36.8 C) Oral 69 16 97 % Physical Exam Constitutional: She is oriented to person, place, and time. She appears well-developed and well-nourished. HENT: Head: Normocephalic and atraumatic. Right Ear: External ear normal. Left Ear: External ear normal. Nose: Nose normal. Mouth/Throat: Oropharynx is clear and moist. Eyes: Conjunctivae and EOM are normal. Neck: Normal range of motion. Neck supple. Cardiovascular: Normal rate and regular rhythm. Pulmonary/Chest: Effort normal. Abdominal: Soft. She exhibits no distension and no mass. There is no tenderness. There is no guarding. Musculoskeletal: Normal range of motion. Neurological: She is alert and oriented to person, place, and time. No cranial nerve deficit. Coordination normal. Skin: Skin is warm and dry. Psychiatric: She has a normal mood and affect. Her behavior is normal. Nursing note and vitals reviewed. Laboratory & Radiographic Imaging (if done): Results for orders placed or performed during the hospital encounter of 06/22/18 BMP Result Value Ref Range Sodium 142 135 - 145 mmol/L Potassium 3.8 3.5 - 5.1 mmol/L Chloride 106 98 - 108 mmol/L Bicarbonate 26 21 - 32 mmol/L Anion Gap 14 10 - 20 mmol/L Glucose 76 65 - 99 mg/dL BUN 13 8 - 25 mg/dL Creatinine 0.88 0.50 - 1.00 mg/dL BUN/Creatinine Ratio 14.8 10.0 - 20.0 Calcium 8.9 8.4 - 10.2 mg/dL Hepatic Function Panel (LFT) Result Value Ref Range Total Protein 7.6 6.0 - 8.0 g/dL Albumin 4.4 3.2 - 4.5 g/dL Total Bilirubin 0.4 0.0 - 1.3 mg/dL Bilirubin, Direct 0.1 0.0 - 0.4 mg/dL Alkaline Phosphatase 186 110 - 630 U/L AST 20 0 - 45 U/L ALT 18 14 - 65 U/L CBC Auto Differential Result Value Ref Range WBC 6.20 4.50 - 11.00 K/mcL RBC 4.49 4.10 - 5.10 M/mcL Hemoglobin 13.9 12.0 - 16.0 g/dL Hematocrit 40.1 36.0 - 46.0 % MCV 89.3 78.0 - 102.0 fL MCH 31.0 25.0 - 35.0 pg MCHC 34.7 31.0 - 37.0 g/dL Platelets 262 150 - 400 K/mcL RDW - CV 12.3 11.6 - 14.8 % MPV 9.4 9.0 - 15.5 fL Neutrophils 53.5 % Lymphocytes 39.4 % Monocytes 5.3 % Eosinophils 0.8 % Basophils 0.5 % IG Percent 0.50 % Neutrophils Abs 3.32 1.80 - 8.00 K/mcL Lymphocytes Abs 2.44 1.20 - 5.20 K/mcL Monocytes Abs 0.33 0.00 - 0.80 K/mcL Eosinophils Abs 0.05 0.00 - 0.50 K/mcL Basophils Abs 0.03 0.00 - 0.20 K/mcL IG Absolute 0.03 0.00 - 0.30 K/mcL No orders to display Procedures MDM Number of Diagnoses or Management Options Diagnosis management comments: I reviewed the emergency room visit from June 16, 2018 and the consult with [facility] on June 18, 2018. 1645-I spoke with Dr. Gold from [facility]. 1720- Dr. Gold spoke with the GI motility personnel and feel that the patient can contact them tomorrow for follow-up. Patient's mom consents to blood work and IV hydration at this time. 1825-patient should drink plenty of fluids by mouth and use Zofran as needed and follow-up as previously described. Amount and/or Complexity of Data Reviewed Decide to obtain previous medical records or to obtain history from someone other than the patient: yes Review and summarize past medical records: yes Clinical Impression: SNOMED CT(R) 1. Intractable vomiting with nausea, unspecified vomiting type INTRACTABLE NAUSEA AND VOMITING ED Disposition ED Disposition Condition Comment Discharge Stable Ethan Hernandez discharged to home/self care in stable condition. Follow-up Information 1. [facility]. Why: ELEAZAR to schedule appointment in 1-3 days Contact information for after-discharge care Follow-up information has not been specified. Pedro Siddiqui Jr., MD 06/22/18 1830 Physician at bedside. Arrives to rm 6 with dehydration. Pt unable to keep anything(food/water) down for several weeks. Mother states dr told her to bring pt in if not voiding 3 x a day, pt only went 2x Yesterday. Plan to have further testing this week, possible gastroporesis. documented in this encounter Lab at bedside for blood draw. ED PROVIDER NOTE [facility] NAME: Ethan Hernandez AGE: 13 y.o. : 2005 VISIT DATE: 09/22/2018 CSN: [id number] PCP: Milton Leos MD Chief Complaint Patient presents with Sore Throat Patient is here for a sore throat. The duration is 1 week. The timing is constant. The severity is severe. There is associated odynophagia and decreased solid intake although she takes liquids and yogurt. There was fever associated at the onset, and there is increased fatigue sleeping more than usual, although she has some baseline fatigue from her EDS. There is no cough. Her glands are tender. There are no sick contacts, no nausea diarrhea or rash. Past Medical History: Diagnosis Date Anemia Arrhythmia Chest pain Depression Yola-Danlos disease Fatigue Fibromyalgia Shortness of breath Past Surgical History: Procedure Laterality Date ADENOIDECTOMY APPENDECTOMY APPENDECTOMY LAPAROSCOPIC 12/04/2017 ..................Dr. Jain TONSILLECTOMY Family History Problem Relation Age of Onset Stroke Mother Diabetes Maternal Grandmother Hyperlipidemia Maternal Grandmother Hypertension Maternal Grandmother Hyperlipidemia Maternal Grandfather Hypertension Maternal Grandfather Autism Brother Social History Socioeconomic History Marital status: Single Spouse name: Not on file Number of children: Not on file Years of education: Not on file Highest education level: Not on file Occupational History Not on file Social Needs Financial resource strain: Not on file Food insecurity: Worry: Not on file Inability: Not on file Transportation needs: Medical: Not on file Non-medical: Not on file Tobacco Use Smoking status: Never Smoker Smokeless tobacco: Never Used Substance and Sexual Activity Alcohol use: No Drug use: No Sexual activity: Not on file Lifestyle Physical activity: Days per week: Not on file Minutes per session: Not on file Stress: Not on file Relationships Social connections: Talks on phone: Not on file Gets together: Not on file Attends hindu service: Not on file Active member of club or organization: Not on file Attends meetings of clubs or organizations: Not on file Relationship status: Not on file Other Topics Concern Not on file Social History Narrative Not on file Previous Medications Medication Sig FLUoxetine (PROZAC) 10 MG tablet Take 10 mg by mouth . drospirenone-ethinyl estradiol (TRACEY) 3-0.03 mg per tablet Take 1 tablet by mouth daily . ondansetron (ZOFRAN) 4 MG tablet Take 1 (one) tablet (4 mg total) by mouth every 4 (four) hours as needed for nausea . [DISCONTINUED] acetaminophen (TYLENOL) 325 MG tablet Take 650 mg by mouth . [DISCONTINUED] FLUoxetine (PROZAC) 10 MG tablet Take 10 mg by mouth daily . [DISCONTINUED] norethindrone (MICRONOR) 0.35 mg tablet Take 0.35 mg by mouth daily . [DISCONTINUED] ondansetron (ZOFRAN ODT) 4 MG disintegrating tablet Dissolve 1 (one) tablet (4 mg total) on top of tongue every 6 (six) hours as needed for nausea (HOME PACK) . Allergies Allergen Reactions Latex Dermatitis Coconut Oil Rash Silk Tape Rash Review of Systems Constitutional: Positive for fever. Respiratory: Negative for cough. Patient Vitals for the past 24 hrs: BP Temp Pulse Resp SpO2 Height Weight 09/22/18 1921 117/84 98.5 F (36.9 C) 62 18 97 % 5' 7 63.5 kg (140 lb) Physical Exam Constitutional: She is oriented to person, place, and time. She appears well-developed and well-nourished. HENT: Head: Normocephalic and atraumatic. Right Ear: Tympanic membrane, external ear and ear canal normal. Left Ear: Tympanic membrane, external ear and ear canal normal. Mouth/Throat: Oropharynx is clear and moist. Oral lesions present. No oropharyngeal exudate or posterior oropharyngeal edema. Also present right posterior pharynx. No other ulcers or lesions. No stridor. Eyes: Conjunctivae are normal. Neck: Tender posterior and anterior adenopathy, more prominent posteriorly. Cardiovascular: Normal rate and normal heart sounds. Pulmonary/Chest: Effort normal and breath sounds normal. Lymphadenopathy: She has cervical adenopathy. Neurological: She is alert and oriented to person, place, and time. Skin: Skin is warm and dry. Psychiatric: Her behavior is normal. Vitals reviewed. Laboratory & Radiographic Imaging (if done): No results found for this visit on 09/22/18. No orders to display Procedures MDM Number of Diagnoses or Management Options Diagnosis management comments: Patient has a pharyngeal ulcer, suggesting viral etiology, consider mono because of her fever fatigue and adenopathy. Will check CBC and Monospot. Have instructed in Benadryl elixir Maalox viscous lidocaine gargle. We will prescribe the Xylocaine complement. Patient will be managed at home with PCP follow-up, and discharged after lab results, lab result endorsed at [address] Colvin. Clinical Impression: No diagnosis found. ED Disposition None Follow-up Information Follow-up information has not been specified. Contact information for after-discharge care Follow-up information has not been specified. Discontinued Medications Disp Refills Start End norethindrone (MICRONOR) 0.35 mg tablet 09/22/2018 Class: Historical Med acetaminophen (TYLENOL) 325 MG tablet 10/18/2017 09/22/2018 Class: Historical Med Reason for Discontinue: Error ondansetron (ZOFRAN ODT) 4 MG disintegrating tablet 2 tablet 0 06/16/2018 09/22/2018 Sig: Dissolve 1 (one) tablet (4 mg total) on top of tongue every 6 (six) hours as needed for nausea (HOME PACK) . Class: Print Route: Oral Reason for Discontinue: Error Fabien Huitron MD 09/22/181941 STATES IT STARTED ABOUT A WEEK AGO WITH SORE THROAT AND NOW HEADACHE. documented in this encounter Discharged. Zofran home pack given to Mother by Dr. Cadena. Able to transfer and take few steps on own Back from CT scan. States felt nauseated after test. To CT scan. CT IS READY FOR PT Bolus infused. Resting with eyes closed. ED PROVIDER NOTE [facility] EMERGENCY DEPARTMENT NAME: Ethan Hernandez AGE: 13 y.o. : 2005 VISIT DATE: 12/14/2018 CSN: [id number] PCP: Milton Leos MD Chief Complaint Patient presents with Rectal Bleeding HPI Patient is a 13 female with a history of hypermobile EDS(Yola-Danlos disease) and chronic nausea, vomiting, abdominal pain who recently underwent an EGD/colonoscopy with biopsies on Tuesday 12/12 (2 days ago) in [place], brought to the ED by mother for abdominal pain, distension, nausea, vomiting and bloody stools. In the ED, patient is awake,alert, GC'S is 15 and initial vitals BP of 118/81 pulse is 69 pulse ox is 97% on room air she is afebrile at 98.[address] Leatha Patton GI fellow from [place] called and updated me on the information and wanted further work-up to rule out Bowel perforation, free air due to recent procedure. Mother reports that biopsies are pending. No hemoptysis hematemesis or melena stools reported are noted. Past Medical History: Diagnosis Date Anemia Arrhythmia Chest pain Depression Yola-Danlos disease Fatigue Fibromyalgia Shortness of breath Past Surgical History: Procedure Laterality Date ADENOIDECTOMY APPENDECTOMY APPENDECTOMY LAPAROSCOPIC 12/04/2017 ..................Dr. Jain TONSILLECTOMY Family History Problem Relation Age of Onset Stroke Mother Diabetes Maternal Grandmother Hyperlipidemia Maternal Grandmother Hypertension Maternal Grandmother Hyperlipidemia Maternal Grandfather Hypertension Maternal Grandfather Autism Brother Social History Socioeconomic History Marital status: Single Spouse name: Not on file Number of children: Not on file Years of education: Not on file Highest education level: Not on file Occupational History Not on file Social Needs Financial resource strain: Not on file Food insecurity: Worry: Not on file Inability: Not on file Transportation needs: Medical: Not on file Non-medical: Not on file Tobacco Use Smoking status: Never Smoker Smokeless tobacco: Never Used Substance and Sexual Activity Alcohol use: No Drug use: No Sexual activity: Not on file Lifestyle Physical activity: Days per week: Not on file Minutes per session: Not on file Stress: Not on file Relationships Social connections: Talks on phone: Not on file Gets together: Not on file Attends hindu service: Not on file Active member of club or organization: Not on file Attends meetings of clubs or organizations: Not on file Relationship status: Not on file Other Topics Concern Not on file Social History Narrative Not on file Previous Medications Medication Sig drospirenone-ethinyl estradiol (TRACEY) 3-0.03 mg per tablet Take 1 tablet by mouth daily . FLUoxetine (PROZAC) 10 MG tablet Take 10 mg by mouth . ondansetron (ZOFRAN) 4 MG tablet Take 1 (one) tablet (4 mg total) by mouth every 4 (four) hours as needed for nausea . Allergies Allergen Reactions Latex Dermatitis Coconut Oil Rash Silk Tape Rash Review of Systems Constitutional: Positive for activity change and appetite change. HENT: Negative for nosebleeds. Cardiovascular: Negative for chest pain. Gastrointestinal: Positive for abdominal distention, abdominal pain, anal bleeding, blood in stool, nausea and vomiting. Endocrine: Negative. Genitourinary: Negative for decreased urine volume, difficulty urinating, dysuria, flank pain, frequency, hematuria, urgency, vaginal bleeding and vaginal discharge. Musculoskeletal: Negative for neck pain and neck stiffness. Skin: Negative. Allergic/Immunologic: Negative. Neurological: Negative. Hematological: Negative. Psychiatric/Behavioral: Negative. All other systems reviewed and are negative. Patient Vitals for the past 24 hrs: BP Temp Temp src Pulse Resp SpO2 Height Weight 12/15/18 0030 128/73 Oral 18 99 % 12/14/18 2359 (!) 133/89 98.4 F (36.9 C) Oral 68 18 12/14/18 2330 106/65 98 % 12/14/18 2300 127/77 (!) 43 18 98 % 12/14/18 2245 125/83 100 % 12/14/184 118/81 98.7 F (37.1 C) Oral 69 18 97 % 12/14/182123 5' 8 66.6 kg (146 lb 13.2 oz) Physical Exam Vitals signs and nursing note reviewed. Constitutional: General: She is not in acute distress. Appearance: She is well-developed. She is not ill-appearing or toxic-appearing. Comments: Awake alert answering questions appropriately HENT: Head: Normocephalic. Nose: Nose normal. No congestion or rhinorrhea. Mouth/Throat: Mouth: Mucous membranes are moist. Pharynx: No oropharyngeal exudate or posterior oropharyngeal erythema. Eyes: Pupils: Pupils are equal, round, and reactive to light. Neck: Musculoskeletal: Normal range of motion and neck supple. No neck rigidity or muscular tenderness. Cardiovascular: Rate and Rhythm: Normal rate. Pulmonary: Effort: Pulmonary effort is normal. No respiratory distress. Breath sounds: Normal breath sounds. No stridor. No wheezing or rhonchi. Abdominal: General: Bowel sounds are normal. Palpations: Abdomen is soft. There is no mass. Tenderness: There is tenderness. There is no right CVA tenderness, left CVA tenderness, guarding or rebound. Hernia: No hernia is present. Musculoskeletal: Normal range of motion. General: No swelling, tenderness, deformity or signs of injury. Lymphadenopathy: Cervical: No cervical adenopathy. Skin: General: Skin is warm and dry. Neurological: General: No focal deficit present. Mental Status: She is alert and oriented to person, place, and time. Psychiatric: Mood and Affect: Mood normal. Laboratory & Radiographic Imaging (if done): Results for orders placed or performed during the hospital encounter of 12/14/18 Chem 7 Result Value Ref Range Sodium 143 135 - 145 mmol/L Potassium 3.9 3.5 - 5.1 mmol/L Chloride 110 (H) 98 - 108 mmol/L Bicarbonate 27 21 - 32 mmol/L Creatinine 0.78 0.50 - 1.00 mg/dL Glucose 92 65 - 99 mg/dL BUN 9 8 - 25 mg/dL BUN/Creatinine Ratio 11.5 10.0 - 20.0 Anion Gap 10 10 - 20 mmol/L Hepatic Function Panel (LFT) Result Value Ref Range Total Protein 6.7 6.0 - 8.0 g/dL Albumin 3.3 3.2 - 4.5 g/dL Total Bilirubin 0.2 0.0 - 1.3 mg/dL Bilirubin, Direct <0.1 0.0 - 0.4 mg/dL Alkaline Phosphatase 113 110 - 630 U/L AST 22 0 - 45 U/L ALT 28 14 - 65 U/L Lipase Result Value Ref Range Lipase 149 73 - 393 U/L Urinalysis Result Value Ref Range Color, Urine Yellow Colorless, Yellow Clarity, Urine Hazy (A) Clear Specific [place] 1.013 1.005 - 1.025 pH, Urine 7.0 5.0 - 7.0 Protein, Urine Negative Negative mg/dL Glucose, Urine Negative Negative mg/dL Ketones, Urine Negative Negative mg/dL Bilirubin, Urine Negative Negative Urobilinogen, Urine <2.0 <2.0 mg/dL Blood, Urine Moderate (A) Negative Nitrite, Urine Negative Negative Leukocyte Esterase, Urine Negative Negative RBCs, Urine 29 (H) 0 - 3 /hpf Bacteria, Urine None Seen None Seen /hpf Squamous Epithelial 1 0 - 4 /hpf Mucus, Urine Rare None Seen, Rare /lpf Gold Top Result Value Ref Range Extra Tube Hold for add-ons. Light Blue Top Result Value Ref Range Extra Tube Hold for add-ons. Urine Result Value Ref Range Beta-hCG, Ur, Qual Negative Negative CBC Auto Differential Result Value Ref Range WBC 5.24 4.50 - 11.00 K/mcL RBC 3.93 (L) 4.10 - 5.10 M/mcL Hemoglobin 12.4 12.0 - 16.0 g/dL Hematocrit 35.8 (L) 36.0 - 46.0 % MCV 91.1 78.0 - 102.0 fL MCH 31.6 25.0 - 35.0 pg MCHC 34.6 31.0 - 37.0 g/dL Platelets 257 150 - 400 K/mcL RDW - CV 12.1 11.6 - 14.8 % MPV 9.3 9.0 - 15.5 fL Neutrophils 41.4 % Lymphocytes 49.4 % Monocytes 7.1 % Eosinophils 1.3 % Basophils 0.8 % IG Percent 0.00 % Neutrophils Abs 2.17 1.80 - 8.00 K/mcL Lymphocytes Abs 2.59 1.20 - 5.20 K/mcL Monocytes Abs 0.37 0.00 - 0.80 K/mcL Eosinophils Abs 0.07 0.00 - 0.50 K/mcL Basophils Abs 0.04 0.00 - 0.20 K/mcL IG Absolute 0.00 0.00 - 0.30 K/mcL Nucleated RBC 0.0 % Nucleated RBC Abs 0.00 0.00 - 0.00 K/mcL CT Abdomen Pelvis With IV Contrast Only Final Result 1. No acute process in abdomen or pelvis to explain patient's symptoms. 2. Previous appendectomy. [facility] Workstation ID: [id number] Procedures MDM Patient is a 13 years old female with hypermobile EDS and chronic nausea/vomiting/abdominal pain who recently underwent an EGD/colonoscopy with biopsies on Tuesday 12/12 (2 days ago) brought to the ED by mother for nausea, vomiting, abdominal pain, distension and bloody stools. Patient's GI Dr. Patton([phone]) in [place] called recommended further work-up to rule out bowel perforation or free air due to recent procedure. Patient was given a bolus of 500 cc normal saline as recommended by GI 4 mg IV Zofran 0.5 mg IV Dilaudid and labs have been ordered including and CT abdomen and pelvis for further evaluation. Will continue to monitor patient and treat appropriately. Review labs CT abdomen and pelvis read by radiology discussed finding with patient GI physician Dr. Patton which is all unremarkable and she recommends outpatient follow-up. Patient discharged home pack for Zofran encourage hydration rest call follow-up with GI tomorrow and or to return to the ED for any worsening symptom and parents expressed understanding. Clinical Impression: 1. Abdominal pain in female patient 2. Bloody stools ED Disposition ED Disposition Condition Comment Discharge Stable Ethan Hernandez discharged to home/self care in stable condition. Follow-up Information 1. Milton Leos MD. Specialty: Family Medicine Why: If symptoms worsen [facility] [address] [facility] [id number] Contact information for after-discharge care Follow-up information has not been specified. New Prescriptions ondansetron (ZOFRAN) 4 MG tablet Take 1 (one) tablet (4 mg total) by mouth every 6 (six) hours as needed for nausea TAKE HOME PACK . Eun Cadena MD 12/15/18 0102 Medicated. Mother at [facility]. IV bolus infusing Pt and mother states rectal bleeding starting today with pt passing clots. Pt received upper and lower endoscopy on Saturday. Mother states pt is bloated more than normal today and is pale. documented in this encounter Pt resting on cart with eyes closed and room darkened. Mother remains cartside. Updated on status of care plan and verbalized understanding. Bedside report given and Suzan assumes care. Dr Chen richter to update pt that all results are back. ED PROVIDER NOTE [facility] EMERGENCY DEPARTMENT NAME: Ethan Hernandez AGE: 13 y.o. : 2005 VISIT DATE: 03/23/2019 CSN: [id number] PCP: Milton Leos MD Chief Complaint Patient presents with Headache Fatigue Sore Throat On Saturday, March 20, 2019 the patient developed sore throat fatigue and headache and mom reports white spots on her tongue. They report that mono is going around the school. Past Medical History: Diagnosis Date Anemia Arrhythmia Chest pain Depression Yola-Danlos disease Fatigue Fibromyalgia Gastroparesis POTS (postural orthostatic tachycardia syndrome) Shortness of breath Past Surgical History: Procedure Laterality Date ADENOIDECTOMY APPENDECTOMY APPENDECTOMY LAPAROSCOPIC 12/04/2017 ..................Dr. Jain TONSILLECTOMY Family History Problem Relation Age of Onset Stroke Mother Diabetes Maternal Grandmother Hyperlipidemia Maternal Grandmother Hypertension Maternal Grandmother Hyperlipidemia Maternal Grandfather Hypertension Maternal Grandfather Autism Brother Social History Socioeconomic History Marital status: Single Spouse name: Not on file Number of children: Not on file Years of education: Not on file Highest education level: Not on file Occupational History Not on file Social Needs Financial resource strain: Not on file Food insecurity Worry: Not on file Inability: Not on file Transportation needs Medical: Not on file Non-medical: Not on file Tobacco Use Smoking status: Never Smoker Smokeless tobacco: Never Used Substance and Sexual Activity Alcohol use: No Drug use: No Sexual activity: Not on file Lifestyle Physical activity Days per week: Not on file Minutes per session: Not on file Stress: Not on file Relationships Social connections Talks on phone: Not on file Gets together: Not on file Attends hindu service: Not on file Active member of club or organization: Not on file Attends meetings of clubs or organizations: Not on file Relationship status: Not on file Other Topics Concern Not on file Social History Narrative Not on file Previous Medications Medication Sig drospirenone-ethinyl estradiol (TRACEY) 3-0.03 mg per tablet Take 1 tablet by mouth daily . FLUoxetine (PROZAC) 10 MG tablet Take 10 mg by mouth . ondansetron (ZOFRAN) 4 MG tablet Take 1 (one) tablet (4 mg total) by mouth every 4 (four) hours as needed for nausea . ondansetron (ZOFRAN) 4 MG tablet Take 1 (one) tablet (4 mg total) by mouth every 6 (six) hours as needed for nausea TAKE HOME PACK . Allergies Allergen Reactions Latex Dermatitis Coconut Oil Rash Silk Tape Rash Review of Systems Constitutional: Positive for fatigue. HENT: Positive for sore throat. Neurological: Positive for headaches. All other systems reviewed and are negative. Patient Vitals for the past 24 hrs: BP Temp Temp src Pulse Resp SpO2 Height Weight 03/23/19 1952 116/74 60 18 99 % 03/23/19 1834 123/83 98.2 F (36.8 C) Oral 67 18 96 % 5' 7 63.5 kg (140 lb) Physical Exam Vitals signs and nursing note reviewed. Constitutional: Appearance: She is well-developed. HENT: Head: Normocephalic and atraumatic. Right Ear: Tympanic membrane and ear canal normal. Left Ear: Tympanic membrane and ear canal normal. Mouth/Throat: Mouth: Mucous membranes are moist. No oral lesions. Pharynx: Posterior oropharyngeal erythema present. No pharyngeal swelling, oropharyngeal exudate or uvula swelling. Eyes: Conjunctiva/sclera: Conjunctivae normal. Pupils: Pupils are equal, round, and reactive to light. Neck: Musculoskeletal: Normal range of motion and neck supple. Cardiovascular: Rate and Rhythm: Normal rate and regular rhythm. Heart sounds: Normal heart sounds. Pulmonary: Effort: Pulmonary effort is normal. Breath sounds: Normal breath sounds. Abdominal: General: There is no distension. Palpations: Abdomen is soft. Tenderness: There is no abdominal tenderness. Skin: General: Skin is warm and dry. Neurological: General: No focal deficit present. Mental Status: She is alert and oriented to person, place, and time. Psychiatric: Mood and Affect: Mood normal. Behavior: Behavior normal. Laboratory & Radiographic Imaging (if done): Results for orders placed or performed during the hospital encounter of 03/23/19 Rapid Strep Screen Result Value Ref Range Strep A Ag Presumptive Negative for Group A Streptococcus Presumptive Negative for Group A Streptococcus Influenza A,B Rapid Molecular Result Value Ref Range Influenza A Not Detected Not Detected Influenza B Not Detected Not Detected Mononucleosis Screen Result Value Ref Range Mononucleosis Screen Negative Negative CMP Result Value Ref Range Sodium 140 135 - 145 mmol/L Potassium 4.5 3.5 - 5.1 mmol/L Chloride 107 98 - 108 mmol/L Bicarbonate 26 21 - 32 mmol/L Anion Gap 12 10 - 20 mmol/L Glucose 98 65 - 99 mg/dL BUN 13 8 - 25 mg/dL Creatinine 0.68 0.50 - 1.00 mg/dL BUN/Creatinine Ratio 19.1 10.0 - 20.0 Total Protein 7.1 6.0 - 8.0 g/dL Albumin 3.3 3.2 - 4.5 g/dL Calcium 9.2 8.4 - 10.2 mg/dL Alkaline Phosphatase 139 110 - 630 U/L AST 16 0 - 45 U/L Total Bilirubin 0.1 0.0 - 1.3 mg/dL ALT 22 14 - 65 U/L CBC Auto Differential Result Value Ref Range WBC 5.64 4.50 - 11.00 K/mcL RBC 3.87 (L) 4.10 - 5.10 M/mcL Hemoglobin 12.0 12.0 - 16.0 g/dL Hematocrit 34.6 (L) 36.0 - 46.0 % MCV 89.4 78.0 - 102.0 fL MCH 31.0 25.0 - 35.0 pg MCHC 34.7 31.0 - 37.0 g/dL Platelets 304 150 - 400 K/mcL RDW - CV 12.2 11.6 - 14.8 % MPV 8.9 (L) 9.0 - 15.5 fL Neutrophils 56.7 % Lymphocytes 33.3 % Monocytes 7.8 % Eosinophils 1.2 % Basophils 0.5 % IG Percent 0.50 % Neutrophils Abs 3.19 1.80 - 8.00 K/mcL Lymphocytes Abs 1.88 1.20 - 5.20 K/mcL Monocytes Abs 0.44 0.05 - 0.80 K/mcL Eosinophils Abs 0.07 0.00 - 0.50 K/mcL Basophils Abs 0.03 0.00 - 0.20 K/mcL IG Absolute 0.03 0.00 - 0.30 K/mcL No orders to display Procedures MDM Number of Diagnoses or Management Options Feeling tired: Nonintractable headache, unspecified chronicity pattern, unspecified headache type: Pharyngitis, unspecified etiology: Diagnosis management comments: Symptomatic care including clear oral fluid hydration rest and acetaminophen and/or ibuprofen for fever or discomfort. Primary care follow-up is recommended within 48 to 72 hours. If there is change worsening or new concern that arises, the patient can be reevaluated in the emergency room at any time. Clinical Impression: 1. Feeling tired 2. Nonintractable headache, unspecified chronicity pattern, unspecified headache type 3. Pharyngitis, unspecified etiology ED Disposition ED Disposition Condition Comment Discharge Stable Ethan Hernandez discharged to home/self care in stable condition. Follow-up Information 1. Milton Leos MD. Specialty: Family Medicine Why: ELEAZAR to schedule appointment in 1-3 days [facility] [address] [place] [id number] Contact information for after-discharge care Follow-up information has not been specified. Pedro Siddiqui Jr., MD 03/23/191954 Pt provided with pillow and warm blanket for comfort Pt states about three days ago she started feeling very tired and getting bad headaches. Pt states also has a headache and sore throat, along with bumps on her tongue. Pt states that the symptoms have gotten progressively worse. Pt states several kids at school have tested positive for mono. Mother states pt has been very tired and had no energy. Pt ambulates with steady gait to room 7 and is alert and oriented. documented in this encounter ED PROVIDER NOTE [facility] EMERGENCY DEPARTMENT NAME: Ethan Hernandez AGE: 14 y.o. : 2005 VISIT DATE: 05/19/2019 CSN: [id number] PCP: Milton Leos MD Chief Complaint Patient presents with Abdominal Pain Emesis CC: Severe nausea vomiting and diarrhea since this afternoon HPI: About 10 hours ago patient started having severe nausea vomiting and vomited watery diarrhea; patient has vomited several times watery diarrhea; multiple times; complains of constant but waxing and waning diffuse abdominal pain pain; no urinary symptoms; no fever no chills; there are other family members having same problem Past Medical History: Diagnosis Date Anemia Arrhythmia Chest pain Depression Yola-Danlos disease Fatigue Fibromyalgia Gastroparesis POTS (postural orthostatic tachycardia syndrome) Shortness of breath Past Surgical History: Procedure Laterality Date ADENOIDECTOMY APPENDECTOMY APPENDECTOMY LAPAROSCOPIC 12/04/2017 ..................Dr. Jain TONSILLECTOMY Family History Problem Relation Age of Onset Stroke Mother Diabetes Maternal Grandmother Hyperlipidemia Maternal Grandmother Hypertension Maternal Grandmother Hyperlipidemia Maternal Grandfather Hypertension Maternal Grandfather Autism Brother Social History Socioeconomic History Marital status: Single Spouse name: Not on file Number of children: Not on file Years of education: Not on file Highest education level: Not on file Occupational History Not on file Social Needs Financial resource strain: Not on file Food insecurity Worry: Not on file Inability: Not on file Transportation needs Medical: Not on file Non-medical: Not on file Tobacco Use Smoking status: Never Smoker Smokeless tobacco: Never Used Substance and Sexual Activity Alcohol use: No Drug use: No Sexual activity: Not on file Lifestyle Physical activity Days per week: Not on file Minutes per session: Not on file Stress: Not on file Relationships Social connections Talks on phone: Not on file Gets together: Not on file Attends hindu service: Not on file Active member of club or organization: Not on file Attends meetings of clubs or organizations: Not on file Relationship status: Not on file Other Topics Concern Not on file Social History Narrative Not on file Previous Medications Medication Sig drospirenone-ethinyl estradiol (TRACEY) 3-0.03 mg per tablet Take 1 tablet by mouth daily . FLUoxetine (PROZAC) 10 MG tablet Take 10 mg by mouth . ondansetron (ZOFRAN) 4 MG tablet Take 1 (one) tablet (4 mg total) by mouth every 4 (four) hours as needed for nausea . ondansetron (ZOFRAN) 4 MG tablet Take 1 (one) tablet (4 mg total) by mouth every 6 (six) hours as needed for nausea TAKE HOME PACK . Allergies Allergen Reactions Latex Dermatitis Coconut Oil Rash Silk Tape Rash Review of Systems Constitutional: Negative. HENT: Negative. Eyes: Negative. Respiratory: Negative. Cardiovascular: Negative. Gastrointestinal: Positive for abdominal pain, diarrhea, nausea and vomiting. Endocrine: Negative. Genitourinary: Negative. Musculoskeletal: Negative. Skin: Negative. Allergic/Immunologic: Negative. Neurological: Negative. Hematological: Negative. Psychiatric/Behavioral: Negative. Patient Vitals for the past 24 hrs: BP Temp Temp src Pulse Resp SpO2 Height Weight 05/19/19 2308 109/58 98.4 F (36.9 C) Oral 90 16 97 % 5' 6 59 kg (130 lb) Physical Exam Vitals signs and nursing note reviewed. Constitutional: Appearance: She is well-developed. HENT: Head: Normocephalic and atraumatic. Mouth/Throat: Mouth: Mucous membranes are moist. Pharynx: No pharyngeal swelling. Cardiovascular: Rate and Rhythm: Normal rate and regular rhythm. Heart sounds: Normal heart sounds. Pulmonary: Effort: Pulmonary effort is normal. Breath sounds: Normal breath sounds. Abdominal: General: Abdomen is flat and scaphoid. Bowel sounds are increased. Palpations: Abdomen is rigid. Tenderness: There is generalized abdominal tenderness. Skin: General: Skin is warm. Neurological: Mental Status: She is alert. Psychiatric: Mood and Affect: Mood normal. Laboratory & Radiographic Imaging (if done): Results for orders placed or performed during the hospital encounter of 05/19/19 POC CBC and Differential Result Value Ref Range WBC 9.20 4.50 - 11.00 K/mcL RBC 4.66 4.10 - 5.10 M/mcL Hemoglobin 14.6 12.0 - 16.0 g/dL Hematocrit 41.5 36.0 - 46.0 % MCV 89.1 78.0 - 102.0 fL MCH 31.3 25.0 - 35.0 pg MCHC 35.2 31.0 - 37.0 g/dL RDW - CV 13.1 11.6 - 14.8 % Platelets 309 150 - 400 K/mcL MPV 9.5 9.0 - 15.5 fL Neutrophils 91.4 % Lymphocytes 5.0 % Mixed 3.6 % Neutrophil Abs 8.4 (H) 1.8 - 8.0 K/mcl Lymphocyte Abs 0.5 (L) 1.2 - 5.2 K/mcl Mixed Abs 0.3 K/mcl No orders to display Procedures MDM Number of Diagnoses or Management Options Viral gastroenteritis: Diagnosis management comments: History and physical examination suggestive of viral gastroenteritis; will give IV fluids; morphine; and Reglan;nausea vomiting improved; patient developed anxiety; wanted to go home; give Xanax 0.25 mg po ; encouraged increase oral fluid intake; Imodium 2 mg 4 hours for abdominal pain ; BRAT diet; return to ER if gets worse Amount and/or Complexity of Data Reviewed Clinical lab tests: ordered and reviewed Discussion of test results with the performing providers: no Decide to obtain previous medical records or to obtain history from someone other than the patient: no Obtain history from someone other than the patient: no Review and summarize past medical records: no Discuss the patient with other providers: no Independent visualization of images, tracings, or specimens: no Risk of Complications, Morbidity, and/or Mortality Presenting problems: moderate Diagnostic procedures: moderate Management options: moderate Patient Progress Patient progress: improved Clinical Impression: No diagnosis found. ED Disposition None Follow-up Information Follow-up information has not been specified. Contact information for after-discharge care Follow-up information has not been specified. DX Gastroenteritis Dehydration John Ordaz MD 05/20/19 0107 PT reports vomiting today with right sided ABD pain and right flank pain; documented in this encounter Associated Order(s): EKG 12-lead ED PROVIDER NOTE [facility] EMERGENCY DEPARTMENT NAME: Ethan Hernandez AGE: 15 y.o. : 2005 VISIT DATE: 05/17/2020 CSN: [id number] PCP: Milton Leos MD Chief Complaint Patient presents with Chest Pain STATES WOKE UP THIS MORNING WITH BURNING IN THE CHEST, HURTS WHEN I DEEP BREATH, ALSO NAUSEATED, AND IT SEEMS TO BE GETTING WORSE. Intermittent burning chest pain at the sternal region, patient feels different from her usual acid reflux. Denied fever, cough, shortness of breath, abdominal pain, diarrhea. Past Medical History: Diagnosis Date Anemia Anxiety Arrhythmia Chest pain Depression EDS (Yola-Danlos syndrome) Yola-Danlos disease Fatigue Fibromyalgia Fibromyalgia, primary Gastroparesis Major depressive disorder POTS (postural orthostatic tachycardia syndrome) Shortness of breath Past Surgical History: Procedure Laterality Date ADENOIDECTOMY APPENDECTOMY APPENDECTOMY LAPAROSCOPIC 12/04/2017 ..................Dr. Jain ARHTROSCOPY KNEE WITH OR WITHOUT MENISECTOMY Right 10/14/2019 Procedure: Right knee tibial tubercle osteotomy with a medial soft tissue imbrication and lateral release; Surgeon: Mary Miguel MD; Location: Main OR; Service: Orthopedic COLONOSCOPY TONSILLECTOMY UPPER GASTROINTESTINAL ENDOSCOPY Family History Problem Relation Age of Onset Stroke Mother Diabetes Maternal Grandmother Hyperlipidemia Maternal Grandmother Hypertension Maternal Grandmother Hyperlipidemia Maternal Grandfather Hypertension Maternal Grandfather Autism Brother Social History Socioeconomic History Marital status: Single Spouse name: Not on file Number of children: Not on file Years of education: Not on file Highest education level: Not on file Occupational History Not on file Social Needs Financial resource strain: Not on file Food insecurity Worry: Not on file Inability: Not on file Transportation needs Medical: Not on file Non-medical: Not on file Tobacco Use Smoking status: Never Smoker Smokeless tobacco: Never Used Substance and Sexual Activity Alcohol use: No Drug use: No Sexual activity: Not on file Lifestyle Physical activity Days per week: Not on file Minutes per session: Not on file Stress: Not on file Relationships Social connections Talks on phone: Not on file Gets together: Not on file Attends hindu service: Not on file Active member of club or organization: Not on file Attends meetings of clubs or organizations: Not on file Relationship status: Not on file Other Topics Concern Not on file Social History Narrative Not on file Previous Medications Medication Sig doxycycline hyclate (VIBRAMYCIN) 100 MG capsule Take 100 mg by mouth daily . sulfacetamide sodium-sulfur 9-4.5 % Clsr Allergies Allergen Reactions Latex Dermatitis Coconut Oil Rash Silk Tape Rash Review of Systems Constitutional: Negative for chills and fever. HENT: Negative for congestion, ear pain, rhinorrhea and sore throat. Eyes: Negative for pain, discharge, redness and visual disturbance. Respiratory: Negative for cough, shortness of breath and wheezing. Cardiovascular: Positive for chest pain. Negative for palpitations. Gastrointestinal: Negative for abdominal distention, abdominal pain, constipation, diarrhea and nausea. Genitourinary: Negative for dysuria, frequency and urgency. Musculoskeletal: Negative for back pain. Skin: Negative for rash. Neurological: Negative for headaches. Patient Vitals for the past 24 hrs: BP Temp Temp src Pulse Resp SpO2 Height Weight 05/17/20 2302 126/73 97.7 F (36.5 C) Oral 62 18 98 % 5' 8 63.5 kg (140 lb) Physical Exam Constitutional: General: She is not in acute distress. HENT: Head: Normocephalic and atraumatic. Nose: Nose normal. Eyes: Extraocular Movements: Extraocular movements intact. Conjunctiva/sclera: Conjunctivae normal. Pupils: Pupils are equal, round, and reactive to light. Neck: Musculoskeletal: Normal range of motion and neck supple. Cardiovascular: Rate and Rhythm: Normal rate and regular rhythm. Heart sounds: Normal heart sounds. No murmur. Pulmonary: Effort: Pulmonary effort is normal. No respiratory distress. Breath sounds: Normal breath sounds. No wheezing, rhonchi or rales. Chest: Chest wall: No tenderness, crepitus or edema. There is no dullness to percussion. Abdominal: General: Bowel sounds are normal. Palpations: Abdomen is soft. Tenderness: There is no abdominal tenderness. There is no guarding or rebound. Musculoskeletal: Normal range of motion. General: No deformity. Lymphadenopathy: Cervical: No cervical adenopathy. Skin: General: Skin is warm and dry. Capillary Refill: Capillary refill takes less than 2 seconds. Findings: No rash. Neurological: General: No focal deficit present. Mental Status: She is alert and oriented to person, place, and time. Cranial Nerves: No cranial nerve deficit. Laboratory & Radiographic Imaging (if done): Results for orders placed or performed during the hospital encounter of 05/17/20 BMP Result Value Ref Range Sodium 140 135 - 145 mmol/L Potassium 3.7 3.5 - 5.1 mmol/L Chloride 107 98 - 108 mmol/L Bicarbonate 27 21 - 32 mmol/L Anion Gap 10 10 - 20 mmol/L Glucose 103 (H) 65 - 99 mg/dL BUN 15 8 - 25 mg/dL Creatinine 0.83 0.50 - 1.00 mg/dL BUN/Creatinine Ratio 18.1 10.0 - 20.0 Calcium 8.9 8.4 - 10.2 mg/dL Hepatic Function Panel (LFT) Result Value Ref Range Total Protein 7.0 6.0 - 8.0 g/dL Albumin 3.7 3.2 - 4.5 g/dL Total Bilirubin 0.3 0.0 - 1.3 mg/dL Bilirubin, Direct <0.1 0.0 - 0.4 mg/dL Alkaline Phosphatase 153 (H) 40 - 140 U/L AST 15 0 - 45 U/L ALT 16 14 - 65 U/L Lipase Result Value Ref Range Lipase 107 73 - 393 U/L Troponin Result Value Ref Range Troponin I <15 <=45 ng/L Troponin I Interpretation Normal D-Dimer, Quantitative Result Value Ref Range D-Dimer 0.37 0.27 - 0.49 mcg/mL FEU CBC Auto Differential Result Value Ref Range WBC 6.76 4.50 - 11.00 K/mcL RBC 4.24 4.10 - 5.10 M/mcL Hemoglobin 12.6 12.0 - 16.0 g/dL Hematocrit 36.8 36.0 - 46.0 % MCV 86.8 78.0 - 102.0 fL MCH 29.7 25.0 - 35.0 pg MCHC 34.2 31.0 - 37.0 g/dL Platelets 271 150 - 400 K/mcL RDW - CV 12.8 11.6 - 14.8 % MPV 9.3 (L) 9.4 - 12.4 fL Neutrophils 50.2 % Lymphocytes 40.1 % Monocytes 8.1 % Eosinophils 1.0 % Basophils 0.3 % IG Percent 0.30 % Neutrophils Abs 3.39 1.70 - 7.00 K/mcL Lymphocytes Abs 2.71 0.90 - 4.00 K/mcL Monocytes Abs 0.55 0.30 - 0.90 K/mcL Eosinophils Abs 0.07 0.00 - 0.50 K/mcL Basophils Abs 0.02 0.00 - 0.30 K/mcL IG Absolute 0.02 0.00 - 0.30 K/mcL XR Chest 1 View Final Result No acute cardiopulmonary process identified. Workstation ID: [id number] EKG 12-lead Date/Time: 05/17/2020 11:38 PM Performed by: Richar Hurtado MD Authorized by: Richar Hurtado MD BPM: 51 Comments: Sinus bradycardia, otherwise normal EKG. MDM Number of Diagnoses or Management Options Diagnosis management comments: EKG sinus bradycardia, otherwise normal. Chest x- ray no acute disease. Troponin negative. D-dimer normal. CMP and CBC unremarkable. Full chest pain is noncardiac, heartburn is some top of the differential since patient feels burning pain and also has history of acid reflux. Patient can take [id number] medications for symptomatic control. Follow-up with PCP. Discussed with the results, treatment plan, discharge instruction as well as follow-up instructions, patient and mom voiced their understanding and agreement. Clinical Impression: 1. Chest pain, non-cardiac ED Disposition ED Disposition Condition Comment Discharge Stable Ethan Hernandez discharged to home/self care in stable condition. Follow-up Information 1. Milton Leos MD. Specialty: Family Medicine Why: in 3-4 days [address] [facility] [address] Contact information for after-discharge care Follow-up information has not been specified. Discontinued Medications Disp Refills Start End clindamycin-benzoyl peroxide 1-5 % GlwP 03/10/2020 05/17/2020 Class: Historical Med Reason for Discontinue: Error Copper IUD (ParaGard T [id number]) 05/17/2020 Class: Historical Med Reason for Discontinue: Error Richar Hurtado MD 05/18/20 0040 STATES WOKE UP THIS MORNING WITH BURNING IN THE CHEST, HURTS WHEN I DEEP BREATH, ALSO NAUSEATED, AND IT SEEMS TO BE GETTING WORSE. documented in this encounter Addendum Note - Milton Leos MD - 02/03/2020 8:30 AM ESTAddendum Note - Darling Alfonso LPN - 02/03/2020 8:30 AM ESTOp Note - Mary Miguel MD - 10/14/2019 3:59 PM EDT Miscellaneous Notes (unrecog nized section and content) Addended by: MILTON LEOS on: 02/03/2020 12:41 PM Modules accepted: Orders Addended by: DARLING ALFONSO on: 02/03/2020 09:02 AM Modules accepted: Orders documented in this encounter PREOPERATIVE DIAGNOSES 1.Right knee patellofemoral instability. 2.Right knee patellofemoral pain. 3.Right knee patellofemoral malalignment. 4.Yola-Danlos syndrome. POSTOP DIAGNOSES 1.Right knee patellofemoral instability. 2.Right knee patellofemoral pain. 3.Right knee patellofemoral malalignment. 4.Yola-Danlos syndrome. PROCEDURES 1.Right knee arthroscopy with arthroscopic lateral release. 2.Anne Marie osteotomy, right tibial tubercle. 3.Vastus medialis advancement and medial retinaculum imbrication. ANESTHESIA General anesthetic. COMPLICATIONS No intraoperative complications. TOURNIQUET TIME 43 minutes. HISTORY Ethan is a 14-year-old patient with significant patellofemoral tracking disorder and chronic pain with significant femoral internal rotation, as well as near dislocation, subluxation moments on a daily basis, who suffers with Yola- Danlos syndrome. The patient and her mother were explained all the risks and complications of surgery after failing conservative measures, including but not limited to the risk of infection, bleeding, neurologic or vascular injury, possibility of deep venous thrombosis, pulmonary embolism, myocardial infarction, stroke, or even with surgery. Explained the possibilities of continued pain, stiffness, loss of range of motion, nonunion of the tibial tubercle, malunion, and we even talked that if this failed, about potential derotational femoral osteotomy and the family was very opposed to that. We talked about the risks and complications with her Yola- Danlos syndrome it's soft tissue abnormalities. They understood that and at this point in time, consented for surgical intervention. PROCEDURE IN DETAIL Patient met in the preop holding area. The right knee was confirmed to be the appropriate site by the patient as well as the mother while the mother consented for the surgery. The patient was taken to the operative suite, given preoperative Kefzol per protocol, as well as a general anesthetic, left leg in lithotomy position, right leg in a proximal thigh tourniquet. Right leg was then sterilely prepped and draped using ChloraPrep solution and InteguSeal. After the sterilization of the right leg and final time-out, tourniquet was elevated. Systematic arthroscopy revealed the medial femoral condyle, tibial plateau, and medial meniscus was normal. ACL and PCL were normal. Lateral femoral condyle, tibial plateau, and lateral meniscus was normal. Patellofemoral articulation. There was significant patellar tilting and subluxation with the knee at 30 degrees of flexion. There was significant patellar tilting and subluxation. A shallow groove was noted. At this time, we then went ahead and proceeded forward with an arthroscopic lateral release from the vastus lateralis at the patellar tendon and what was noted, but there was better patellar tracking. I then at this time ceased the arthroscopy, went ahead and made an incision over the lateral aspect of the tibial tubercle and at this point in time from proximal posterior to distal anterior, proceeded forward with my Anne Marie osteotomy of the tibial tubercle rotating it medially, approximately 1.3 cm. At this time, after this, I secured it with 4.0 cannulated screws using fluoroscopy assistance. After the tibial tubercle osteotomy was completed, I then proceeded forward with an incision along the vastus medialis insertion on the proximal medial patella and at this time, advanced the vastus medialis 1 and 1/2 cm anterior and medial to the medial border of the patella. With my medial imbrication completed, I revisited the knee and at this time, the patella was well seated in the center of the femoral trochlear groove at 30 degrees of flexion. Once I was happy with my patellofemoral realignment, I then went ahead, let the tourniquet down. Bleeders were coagulated. Wounds were irrigated with normal saline solution. We injected 20 cc of 0.5% Marcaine without epinephrine around the arthroscopic incision areas, the medial imbrication as well as the tibial tubercle osteotomy. At this time, we then went ahead and placed bone wax over the tibial tubercle osteotomy site, closed the wound with 2-0 Vicryl and 4-0 black nylon suture. Patient placed in sterile dressing, taken to PACU without intraoperative complication. 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 Item Serial No. Food Service Worker Lot No. LRB No. Used Action SCREW 4 X 36MM JENNY [employer] THRD - [id number] SCREW 4 X 36MM [employer]ENNY [employer]RD SYNTHES LT LOAD 23 Right 1 Implanted SCREW 4 X 40MM [employer] THRD - [id number] SCREW 4 X 40MM [employer] LT LOAD 23 Right 1 Implanted SCREW 4 X 42MM [employer] THRD - [id number] SCREW 4 X 42MM [employer] LT LOAD 23 Right 1 Implanted Drain(s): * No LDAs found * Wound(s): Wound 10/14/19 Surgical Wound Knee Right (Active) Dressing Status Clean;Intact;Dry 10/14/2019 12:53 PM Mary Miguel MD 10/14/2019 1:07 PM documented in this encounter Mary Miguel MD - 10/14/2019 10:02 AM EDTBerMary cnodon MD - 10/08/2019 1:26 PM EDT H&P Notes (unrecognized sect ion and content) INTERVAL HISTORY AND PHYSICAL Patient Name: Ethan Hernandez Admit Date: MR #: [id number] : 2005 The H&P has been reviewed and the patient has been examined. I concur with the findings of the H&P. There are no significant changes. It is appropriate to proceed with the planned procedure. Mary Miguel MD 10/14/2019 10:02 AM Presents with her mother today for a preoperative consultation. If you will recall, this a patient who suffers with Yola-Danlo's syndrome who has significant recurrent bilateral knee patellofemoral instability and now is presenting for a right knee patellofemoral stabilization. This started back during track season, nearly 2 years ago if you will recall. She has had pain, discomfort, and she says it just never feels right. She has tried multiple braces, physical therapy, and she said the knee gives out on her. The patient went ahead and had x-rays and an MRI scan. 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 PAST MEDICAL HISTORY Allergies to latex and coconut. Medicines include p.r.n. amsw-wls-izfuvuw antiinflammatories. SURGERIES Tonsils and adenoids, appendectomy, upper and lower endoscopy. ILLNESSES Includes POTS syndrome, depression, anxiety, major depressive disorder, fibromyalgia, Yola-Danlo's syndrome. REVIEW OF SYSTEMS Abdominal pain, constipation, frequent nausea, broken knees, dizzy spells, shortness of breath, heart rate variability from 28- 110 due to her POTS syndrome. Socially, does not smoke, does not drink. FAMILY HISTORY Stroke. PHYSICAL EXAM She is awake, alert, oriented x3, ambulates without assistive device. Her chest, abdomen, and cardiac exams are benign. Bilateral lower extremities are neurologically intact with 2+ pulses. Bilateral knees have 7-degree hyperextension. Right knee has a negative anterior drawer, negative Siria, no varus or valgus, full extension, about 30 degrees of flexion. She has significant mobility of the patella with 2.5 quadrants of medial and lateral displacement, Q angle of 17, significant femoral internal rotation. Right hip has full range. The elbows have significant hyperextension. Upper extremities neurologically intact with 2+ pulses. IMPRESSION 1.Patellofemoral instability. 2.History of lateral patellar dislocation and dislocation. 3.Yola-Danlos syndrome. PLAN At this point in time, I have discussed all the treatment options with the mother and the patient. Will proceed forward with right knee patellofemoral stabilization. I discussed with the patient's mother that while we practice appropriate precautions consistent with prevailing medical standards, any contact with any person in any setting at this time presents a risk of transmission and contraction of COVID- 19. Patient was also informed that COVID-19 testing within 72 hours of the procedure will be required. The patient and the patient's mother wish to proceed. Mental health assessment was performed. documented in this encounter Care Teams (unrecognized sec tion and content) Mill Operator Relationship Specialty Start Date End Date Milton Leos MD [facility] [address] PCP - General Family Medicine 12/17/17 Mill Operator Relationship Specialty Start Date End Date Milton Leos MD [address] [place], [place] [id number] PCP - General Family Medicine 12/17/17 Mill Operator Relationship Specialty Start Date End Date Milton Leos MD PCP - General Family Medicine 10/01/16 Mill Operator Relationship Specialty Start Date End Date Milton Leos MD [address] [place] [address] PCP - General Family Medicine 12/17/17 Mill Operator Relationship Specialty Start Date End Date Milton Leos MD [address] [place], [place] [id number] PCP - General Family Medicine 12/17/17 Mill Operator Relationship Specialty Start Date End Date Milton Leos MD [address] [place] [address] PCP - General Family Medicine 12/17/17 Mill Operator Relationship Specialty Start Date End Date Meme Gimenez APRN-[employer]VENT PLANT OPERATOR [address] [facility] [place] [address] PCP - General Certified Nurse Practitioner 01/03/22 Mill Operator Relationship Specialty Start Date End Date Meme Gimenez APRN-[employer] PLANT OPERATOR [address] [facility] [place] [address] PCP - General Certified Nurse Practitioner 01/03/22 Mill Operator Relationship Specialty Start Date End Date Meme Gimenez APRN-[employer] PLANT OPERATOR [address] [facility] [place] [address] PCP - General Certified Nurse Practitioner 01/03/22 Mill Operator Relationship Specialty Start Date End Date Meme Gimenez [employer] OPERATOR [address] [facility] [place] [address] PCP - General Family Medicine 03/28/22 Mill Operator Relationship Specialty Start Date End Date Meme Gimenez, SOL[employer] PLANT OPERATOR [address] [facility] [place] [address] PCP - General Family Medicine 03/28/22 Mill Operator Relationship Specialty Start Date End Date Meem Gimenez [employer] PL[employer] OPERATOR [address] [facility] [place] [address] PCP - General Family Medicine 03/28/22 Mill Operator Relationship Specialty Start Date End Date Meme Gimenez [employer] PL[employer] OPERATOR [address] [facility] [place] [address] PCP - General Family Medicine 03/28/22 Mill Operator Relationship Specialty Start Date End Date Meme Gimenez [employer] PL[employer] OPERATOR [address] [place] [address] PCP - General Family Medicine 03/28/22 Mill Operator Relationship Specialty Start Date End Date Meme Gimenez [employer] PL[employer] OPERATOR [address] [place] [address] PCP - General Family Medicine 03/28/22 Mill Operator Relationship Specialty Start Date End Date Meme Gimenez APRN-[employer] PLANT OPERATOR [address] [facility] [place] [address] PCP - General Certified Nurse Practitioner 01/03/22 Mill Operator Relationship Specialty Start Date End Date Meme Gimenez APRN-[employer] PLANT OPERATOR [address] [facility] [place] [address] PCP - General Certified Nurse Practitioner 01/03/22 Mill Operator Relationship Specialty Start Date End Date Meme Gimenez APRN-[employer]VENT PLANT OPERATOR [address] [facility] [place] [place] [address] PCP - General Certified Nurse Practitioner 01/03/22 Mill Operator Relationship Specialty Start Date End Date Meme Gimenez APRN-SOLVENT PLANT OPERATOR [address] [facility] [place] [address] PCP - General Certified Nurse Practitioner 01/03/22 Mill Operator Relationship Specialty Start Date End Date Meme Gimenez APRN-[employer] PLANT OPERATOR [address] [place] [address] PCP - General Certified Nurse Practitioner 01/03/22 Mill Operator Relationship Specialty Start Date End Date Meme Gimenez CNP [address] [place] [address] PCP - General Family Medicine 03/28/22 Mill Operator Relationship Specialty Start Date End Date Meme Gimenez CNP [address] [place] [address] PCP - General Family Medicine 03/28/22 Mill Operator Relationship Specialty Start Date End Date Meme Gimenez APRN-[employer] OPERATOR [address] [place] [address] PCP - General Certified Nurse Practitioner 01/03/22 Mill Operator Relationship Specialty Start Date End Date Meme Gimenez APRN-CNP [address] [place] [address] PCP - General Certified Nurse Practitioner 01/03/22 Mill Operator Relationship Specialty Start Date End Date Meme Gimenez APRN-CNP [address] [place] [address] PCP - General Certified Nurse Practitioner 01/03/22 Mill Operator Relationship Specialty Start Date End Date Meme Gimenez CNP [address] [place] [address] PCP - General Family Medicine 03/28/22 Mill Operator Relationship Specialty Start Date End Date Meme Gimenez CNP [address] [place] [address] PCP - General Family Medicine 03/28/22 Mill Operator Relationship Specialty Start Date End Date Meme Gimenez CNP [address] [place] [address] PCP - General Family Medicine 03/28/22 Mill Operator Relationship Specialty Start Date End Date Meme Gimenez CNP [address] [place] [address] PCP - General Family Medicine 03/28/22 Mill Operator Relationship Specialty Start Date End Date Meme Gimenez CNP [address] [place] [address] PCP - General Family Medicine 03/28/22 Mill Operator Relationship Specialty Start Date End Date Meme Gimenez CNP [address] [place] [address] PCP - General Family Medicine 03/28/22 Mill Operator Relationship Specialty Start Date End Date Meme Gimenez APRN-ARNOLD [address] [place] [address] PCP - General Certified Nurse Practitioner 01/03/22 Mill Operator Relationship Specialty Start Date End Date Meme Gimenez APRN-ARNOLD [address] [place] [address] PCP - General Certified Nurse Practitioner 01/03/22 Mill Operator Relationship Specialty Start Date End Date Meme Gimenez CNP [address] [place] [address] PCP - General Family Medicine 03/28/22 Mill Operator Relationship Specialty Start Date End Date Meme Gimenez CNP [address] [place] [address] PCP - General Family Medicine 03/28/22 Mill Operator Relationship Specialty Start Date End Date Meme Gimenez CNP [address] [place] [address] PCP - General Family Medicine 03/28/22 Mill Operator Relationship Specialty Start Date End Date Pernell JIMMY Barfield-[employer] OPERATOR [address] [place] [address] PCP - General Certified Nurse Practitioner 01/03/22 Mill Operator Relationship Specialty Start Date End Date Meme Gimenez CNP [address] [place] [address] PCP - General Family Medicine 03/28/22 Mill Operator Relationship Specialty Start Date End Date Meme Gimenez CNP [address] [place] [address] PCP - General Family Medicine 03/28/22 Mill Operator Relationship Specialty Start Date End Date Meme Gimenez CNP [address] [place] [address] PCP - General Family Medicine 03/28/22 Mill Operator Relationship Specialty Start Date End Date Meme Gimenez CNP [address] [place] [address] PCP - General Family Medicine 03/28/22 Mill Operator Relationship Specialty Start Date End Date Meme Gimenez CNP [address] [facility] [place] [address] PCP - General Family Medicine 03/28/22 Mill Operator Relationship Specialty Start Date End Date Meme Gimenez CNP [address] [place] [address] PCP - General Family Medicine 03/28/22 Mill Operator Relationship Specialty Start Date End Date Meme Gimenez APRN-[employer] OPERATOR [address] [place] [address] PCP - General Certified Nurse Practitioner 01/03/22 Mill Operator Relationship Specialty Start Date End Date Meme Gimenez APRN-CNP [address] [place] [address] PCP - General Certified Nurse Practitioner 01/03/22 Mill Operator Relationship Specialty Start Date End Date Meme Gimenez APRN-[employer] PL[employer] OPERATOR [address] [facility] [place] [address] PCP - General Certified Nurse Practitioner 01/03/22 Mill Operator Relationship Specialty Start Date End Date Meme Gimenez APRN-[employer] OPERATOR [address] [place] [address] PCP - General Certified Nurse Practitioner 01/03/22 Mill Operator Relationship Specialty Start Date End Date Meme Gimenez APRN-CNP [address] [place] [address] PCP - General Certified Nurse Practitioner 01/03/22 Mill Operator Relationship Specialty Start Date End Date Meme Gimenez APRN-CNP [address] [facility] [place] [address] PCP - General Certified Nurse Practitioner 01/03/22 Mill Operator Relationship Specialty Start Date End Date Meme Gimenez APRN-[employer] OPERATOR [address] [facility], [place] [id number] PCP - General Certified Nurse Practitioner 01/03/22 Mill Operator Relationship Specialty Start Date End Date Meme Gimenez APRN-[employer] OPERATOR [address] [facility] [place] [address] PCP - General Certified Nurse Practitioner 01/03/22 Mill Operator Relationship Specialty Start Date End Date Meme Gimenez APRN-CNP [address] [place] [address] PCP - General Certified Nurse Practitioner 01/03/22 Mill Operator Relationship Specialty Start Date End Date Meme Gimenez APRN-CNP [address] [place] [address] PCP - General Certified Nurse Practitioner 01/03/22 Mill Operator Relationship Specialty Start Date End Date Meme Gimenez APRN-CNP [address] [place] [address] PCP - General Certified Nurse Practitioner 01/03/22 Mill Operator Relationship Specialty Start Date End Date Meme Gimenez APRN-CNP [address] [place] [address] PCP - General Certified Nurse Practitioner 01/03/22 Team Status: Inactive Member Role/Relationship Status Dates Dr. Maribell Yang , DO Attending physician Acti ve Start: November 19, 2024 End: November 19, 2024 Team Status: Active Member Role/Relationship Status Dates Dr. Maribell Yang DO Attending physician Acti ve Start: November 19, 2024 Dr. Maribell Yang , DO Referring Provider Activ e Start: November 19, 2024 Team Status: Inactive Member Role/Relationship Status Dates Dr. Maribell Yang DO Attending physician Acti ve Start: November 19, 2024 End: November 19, 2024 Dr. Maribell Yang , DO Referring Provider Activ e Start: November 19, 2024 End: November 19, 2024 Team Status: Active Member Role/Relationship Status Dates Jana Vieyra Attending physician Active Start: 2024 Team Status: Inactive Member Role/Relationship Status Dates Dr. Maribell Yang DO Attending physician Acti ve Start: November 19, 2024 End: November 19, 2024 Team Status: Inactive Member Role/Relationship Status Dates Dr. Maribell Yang DO Attending physician Ubaldo laguna Start: November 19, 2024 End: November 19, 2024 Dr. Maribell Yang DO Referring Provider Activ e Start: November 19, 2024 End: November 19, 2024 Team Status: Inactive Member Role/Relationship Status Dates Lenora Vidal CHANNEL MARKETING MANAGER, CHANNEL MARKETING MANAGER-C Attending physician Active Start: December 07, 2024 End: December 07, 2024 Team Status: Active Member Role/Relationship Status Dates Lenora Vidal CHANNEL MARKETING MANAGER, CHANNEL MARKETING MANAGER-C Attending physician Active Start: December 07, 2024 Scheduled Active and Recently Administ ered Medications (unrecognized section and content) Medication Order 01/01/2022 01/02/2022 01/03/2022 sodium chloride 0.9% IV solution 1,000 mL (COMPLETED) 1,000 mL, Intravenous, ONCE, 1 dose, On Sat01/03/22 at 1345 1433 ($$New Bag$$ - Provider: Rebecca Weeks, RN)1539 (Stopped - Provider: Jenae Arizmendi, GASTON) Scheduled Medication Order 01/02/2022 01/03/2022 01/04/2022 acetaminophen (TYLENOL) tablet 1,000 mg (COMPLETED) 1,000 mg, Oral, ONCE, 1 dose, On Beryl 01/04/22 at 1615 1548 (Given - Provid er: Elsa Jennings RN) Scheduled Medication Order 08/04/2022 08/05/2022 08/06/2022 Acetaminophen (TYLENOL) tablet 975 mg (COMPLETED) 975 mg, Oral, ONCE, 1 dose, On Sat08/06/22 at 0645, Pre-op/Pre-Proc 0745 (Given - Provid er: Selena Guzman, GASTON) ceFAZolin (ANCEF) 2 g in dextrose 100 mL premix IVPB (COMPLETED) 2 g, Intravenous, Administer over 30 Minutes, ONCE, 1 dose, On Sat08/06/22 at 0745 0837 (Given - Provid er: Anushka Davis APRN-SUPERVISOR [employer]) Gabapentin (NEURONTIN) capsule 300 mg (COMPLETED) 300 mg, Oral, ONCE, 1 dose, On 6/5/23 at 0645, Pre-op/Pre-Proc 0745 (Given - Provid er: Selena Guzman RN) Scopolamine (TRANSDERM-SCOP) patch 1 patch 1 patch, Transdermal, ONCE, 1 dose, On Sat08/06/22 at 0645, Each patch delivers 1 mg over 72 hours., Pre-op/Pre-Proc 0745 (Patch Applied - Provider: Selena Guzman RN)1218 (Due: Patch Removed - Provider: System Discharge - Comment: Time automatically adjusted from order being discontinued) Continuous Medication Order 08/04/2022 08/05/2022 08/06/2022 Lactated ringers IV solution Intravenous, at 20 mL/hr, CONTINUOUS, Starting on Sat08/06/22 at 0645, Until Sat08/06/22 at 1419, Pre-op/Pre-Proc 0837 ($$New Bag$$ - Provider: COSME Fields)1002 ($$New Bag$$ - Provider: COSME Fields)1214 (Stopped - Provider: Chloé Vuong RN) PRN Medication Order 08/04/2022 08/05/2022 08/06/2022 fentaNYL (SUBLIMAZE) injection 25 mcg 25 mcg, Intravenous, Administer over 2 Minutes, EVERY 5 MINUTES NEEDED, Starting on Sat08/06/22 at 1002, Until Sat08/06/22 at 1419, Moderate Pain, Severe Pain, Additional dose may be administered only if first dose did not result in adverse effects (RR<10, decrease in level of consciousness) and was previously documented as ineffective. May give a total of 100mcg in PACU. If pain unrelieved after 100mcg, notify Anesthesia provider., Recovery 1041 (Given - Provid er: Chloé Vuong RN)1048 (Given - Provider: Chloé Vuong RN)1054 (Given - Provider: Chloé Vuong RN)1100 (Given - Provider: Chloé Vuong RN) Haloperidol lactate (HALDOL) injection 0.5 mg 0.5 mg, Intravenous, EVERY 15 MINUTES NEEDED, 2 doses, Starting on Sat08/06/22 at 1002, Until Sat08/06/22 at 1419, FIRST line Nausea/vomiting,, If patient still experiencing nausea/vomiting after 1st dose use 2nd line antiemetic, Recovery lidocaine 1% buffered in sodium bicarbonate 1-8.4 % injection SOSY 1 mL 1 mL, Intradermal, ONCE NEEDED, 1 dose, Starting on Sat08/06/22 at 0638, Until Sat08/06/22 at 1419, Other, Use for peripheral IV insertion, Use when inserting peripheral IV, Pre-op/Pre-Proc Lidocaine-epinephrine 1%-1:[id number] injection (CANCELED) NEEDED, Starting on Sat08/06/22 at 0859, Until Sat08/06/22 at 1016, Intra-op/Intra-Proc 0859 (Given - Provid er: Sulema Lazar MD) Ondansetron 4mg/2ml (ZOFRAN) injection 4 mg 4 mg, Intravenous, ONCE NEEDED, 1 dose, Starting on Sat08/06/22 at 1002, Until Sat08/06/22 at 1419, Nausea / Vomiting, SECOND Line, Use if patient still experiencing nausea/vomiting after 1st line antiemetic, Recovery oxyCODONE (ROXICODONE) tablet 5 mg (COMPLETED) 5 mg, Oral, ONCE NEEDED, 1 dose, Starting on Sat08/06/22 at 1002, Until Sat08/06/22 at 1041, Moderate Pain, Recovery 1041 (Given - Provid er: Chloé Vuong RN) oxyCODONE (ROXICODONE) tablet 5 mg (COMPLETED) 5 mg, Oral, ONCE NEEDED, 1 dose, Starting on Sat08/06/22 at 1110, Until Sat08/06/22 at 1116, Moderate Pain, Recovery 1116 (Given - Provid er: Chloé Vuong RN) tobramycin PF (NEBCIN) 80 mg in Sodium chloride 0.9 % 1,000 mL irrigation solution (CANCELED) NEEDED, Starting on Sat08/06/22 at 0850, Until Sat08/06/22 at 1016, Intra-op/Intra-Proc 0850 (Given - Provid er: Sulema Lazar MD - Comment: administered to sterile field) Scheduled Medication Order 04/02/2023 04/03/2023 04/04/2023 Ketorolac (TORADOL) injection 15 mg (COMPLETED) 15 mg, Intravenous, ONCE, 1 dose, On Beryl 04/04/23 at 1345 1327 (Given - Provid er: Kai Manzanares RN) Sodium chloride 0.9% IV solution 500 mL (COMPLETED) 500 mL, Intravenous, ONCE, 1 dose, On Beryl 04/04/23 at 1345 1326 ($$New Bag$$ - Provider: Kai Manzanares RN)1421 (Stopped - Provider: Sahil Anguiano RN) Scheduled Medication Order 07/17/2023 07/18/2023 07/19/2023 oxyCODONE-acetaminophen (PERCOCET) 5-325 MG per tablet 1 tablet (COMPLETED) 1 tablet, Oral, ONCE, 1 dose, On Sat07/19/23 at 1400 1354 (Given - Provid er: Bhavya Ballard RN) Continuous Medication Order 07/17/2023 07/18/2023 07/19/2023 Lactated ringers IV solution Intravenous, at 125 mL/hr, CONTINUOUS, Starting on Sat07/19/23 at 0900, Until Sat07/19/23 at 1646, Pre-op/Pre-Proc 1155 ($$New Bag$$ - Provider: COSME Richards)1232 ($$New Bag$$ - Provider: COSME Richards)1249 (Anesthesia Volume Adjustment - Provider: COSME Richards)1411 (Stopped - Provider: Bhavya Ballard RN) PRN Medication Order 07/17/2023 07/18/2023 07/19/2023 fentaNYL (SUBLIMAZE) injection 25 mcg(Linked Group 1) 25 mcg, Intravenous, Administer over 2 Minutes, EVERY 15 MINUTES NEEDED, 3 doses, Starting on Sat07/19/23 at 1255, Until Sat07/19/23 at 1646, Moderate Pain, Recovery 1312 (See Alternativ e - Provider: Jacklyn Martinez RN)1329 (See Alternative - Provider: Jacklyn Martinez RN) fentaNYL (SUBLIMAZE) injection 50 mcg(Linked Group 1) 50 mcg, Intravenous, Administer over 2 Minutes, EVERY 15 MINUTES NEEDED, 3 doses, Starting on Sat07/19/23 at 1255, Until Sat07/19/23 at 1646, Severe Pain, Recovery 1312 (Given - Provid er: Jacklyn Martinez RN - Comment: Anh Rodriguez CRNA advised okay to give with HR)1329 (Given - Provider: Jacklyn Martinez RN) Promethazine (PHENERGAN) 6.25 mg in Sodium chloride 0.9%, with overfill 60.25 mL (total volume) IVPB 6.25 mg, Intravenous, at 180.8 mL/hr, Administer over 20 Minutes, EVERY 1 HOUR NEEDED, 2 doses, Starting on Sat07/19/23 at 1255, Until Sat07/19/23 at 1646, Other, Nausea and vomiting, Extravasation Risk, Recovery Sterile water irrigation (CANCELED) NEEDED, Starting on Sat07/19/23 at 1219, Until Sat07/19/23 at 1253, Intra-op/Intra-Proc 1219 (Given - Provid er: Jana Sanchez MD - Comment: used for irrigation and mixed with hibicleanse for prep) Linked Groups Order Group 1: fentaNYL (SUBLIMAZE) injection 25 mcgJump to med 25 mcg, Intravenous, Administer over 2 Minutes, EVERY 15 MINUTES NEEDED, 3 doses, Starting on Sat07/19/23 at 1255, Until Sat07/19/23 at 1646, Moderate Pain, Recovery Or fentaNYL (SUBLIMAZE) injection 50 mcgJump to med 50 mcg, Intravenous, Administer over 2 Minutes, EVERY 15 MINUTES NEEDED, 3 doses, Starting on Sat07/19/23 at 1255, Until Sat07/19/23 at 1646, Severe Pain, Recovery Scheduled Medication Order 07/21/2023 07/22/2023 07/23/2023 Diazepam (VALIUM) injection 2.5 mg (COMPLETED) 2.5 mg, Intravenous, ONCE, 1 dose, On Sat07/23/23 at 1415, Do not dilute prior to administration. Flush the line with saline afterwards. Extravasation Risk 1355 (Given - Provid er: Mabel Luna RN) dicyclomine (BENTYL) injection 20 mg (COMPLETED) 20 mg, Intramuscular, ONCE, 1 dose, On Sat07/23/23 at 1345 1355 (Given - Provid er: Mabel Luna RN) Sodium chloride 0.9% IV solution 1,000 mL (COMPLETED) 1,000 mL, Intravenous, ONCE, 1 dose, On Sat07/23/23 at 1345 1355 ($$New Bag$$ - Provider: Mabel Luna RN)1523 (Stopped - Provider: Padmini Hart, GASTON) Scheduled Medication Order 09/13/2023 09/14/2023 09/15/2023 doxycycline hyclate (VIBRAMYCIN) capsule 200 mg (COMPLETED) 200 mg, Oral, ONCE, 1 dose, On 09/15/23 at 1945, Avoid antacid and iron administration for 1 hour before and 2 hours after dose 1924 (Given - Provid er: [facility]) Ketorolac (TORADOL) injection 30 mg (COMPLETED) 30 mg, Intramuscular, ONCE, 1 dose, On 09/15/23 at 1945 1925 (Given - Provid er: [facility]) Scheduled Medication Order 11/26/2023 11/27/2023 11/28/2023 Ibuprofen (MOTRIN) tablet 600 mg (COMPLETED) 600 mg, Oral, ONCE, 1 dose, On Beryl 11/28/23 at 2245, Give with food 2231 (Given - Provid er: Jennifer Aleman RN) Goals (unrecognized section and content) Type Care Experience Labor Preferences-CB /BF classes: encouragedlabor support person: Kya intervention preferences: []pain management options preferred: wants limited interventioncut cord/dad catch: cordbreastfeeding: yesPP control planned: []discussed possible routes of delivery and associated risks: []special requests: [] FOR RECORDS PERTAINING TO PATIENTS WHO ARE OR HAVE BEEN ENROLLED IN A CHEMICAL DEPENDENCY/SUBSTANCEABUSE PROGRAM, SOME INFORMATION MAY BE OMITTED. This clinical summary was aggregated from multiple sources. Caution should be exercised in using it in the provision of clinical care. This summary normalizes information from multiple sources, and as a consequence, information in this document may materially change the coding, format and clinical context of patient data. In addition, data may be omitted in some cases. CLINICAL DECISIONS SHOULD BE BASED ON THE PRIMARY CLINICAL RECORDS. [email or web address] provides no warranty or guarantee of the accuracy or completeness of information in this document.
--- OUTSIDE RECORDS SUMMARY | 2024-12-16 20:13 | XMS RPT_ITS | CCD ---
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 Name Role Phone Unavailable Unavailable Unavailable MILTON LEOS Unavailable Unavail able MILTON LEOS Unavailable Unavail able UNKNOWN, PROVIDER Unavailable Unavailable MEME GIMENEZ Unavailable Unavailable Milton Leos Unavailable Milton Leos Primary Care Provider Milton Leos Primary Care Provider Unavailable Primary Care Provider Unavailabl e Milton Leos Primary Care Provider Milton Leos Primary Care Provider Shelley Leosah Primary Care Provider [phone] MARY MIGUEL Admitting Unavailab MARY Marley Referring Unavailab le MILTON LEOSBETH Primary Care Unavail able Milton Leos MDbeth [facility] Provide r Dafne HYMAN, Milton Primary Care Provider Milton Leos MD Primary [facility] [place] Provide r Milton Leos MD Primary [facility] [place] Provide r Meme Owen Primary Care Provider [phone] Meme Gimenez CNP Primary Care Provider EUSEBIO SOLORIO Attending Unavailable MEME GIMENEZ Primary Care Unavailable BARNEY JACQUES Attending Unavailable MEME GIMENEZ Primary Care Unavailable NATALIE SMALLS Attending Unavail able MEME GIMENEZ Referring Unavailable MEME GIMENEZ Admitting Unavailable MILTON LEOSBETH Primary Care Unavail able KHEMECANDACE RAGLAND Attending Mable vailable ETZEL MEME CATSRO Primary Care Unavailable DALLIN MORE Attending Unavailable [...] ETZEL, MEME CASTRO Primary Care Unavailable Etzel CH[employer] SHRIMP POND, Meme Primary Care Provider ETTESS, MEME REID Referring Unavailable ETZEL, MEME [...] ETZEL, MEME CASTRO Primary Care Unavailable Etzel [employer] [place] [place], Meme Primary Care Provider SULEMA LAZAR L. Referring Unavailable LAZAR, SULEMA [...] L. Admitting Unavailable JAYYNATALI Attending Unavailable ETZEL, [facility] Primary Care Unavailable LAZAR, SULEMA L. Referring Unavailable LAZAR, SULEMA L. Admitting Unavailable ROJO, KIMO Attending Unavailable ETZEL, [facility] Primary Care Unavailable ETZEL, [facility] Primary Care Unavailable ANABELLE, YINA BUSBY Attending Unavailab le ANABELLE, YINA BHAVYA Referring Unavailab le LAZAR, SULEMA L. Referring Unavailable LAZAR, SULEMA L. Admitting Unavailable ETZEL, [facility] Primary Care Unavailable JAYYNATALI Attending Unavailable LAZAR, SULEMA L. Referring Unavailable LAZAR, SULEMA L. Admitting Unavailable ETZEL, [facility] Primary Care Unavailable JAYYNATALI Attending Unavailable LAZAR, SULEMA L. Referring Unavailable LAZAR, SULEMA L. Admitting Unavailable ROJO, KIMO Attending Unavailable ETZEL, [facility] Primary Care Unavailable LAZAR, SULEMA L. Referring Unavailable LAZAR, SULEMA L. Admitting Unavailable JAYY, NATALI Attending Unavailable ETZEL, [facility] Primary Care Unavailable LAZAR, SULEMA L. Referring Unavailable LAZAR, SULEMA L. Admitting Unavailable STURTSGERMAINE Attending Unavailable ETZEL, [facility] Primary Care Unavailable LAZAR, SULEMA L. Referring Unavailable LAZAR, SULEMA L. Admitting Unavailable PATTI SONG Attending Unavailable ETZEL, [facility] Primary Care Unavailable LAZAR, SULEMA L. Referring Unavailable LAZAR, SULEMA L. Admitting Unavailable JAYY, NATALI Attending Unavailable ETZEL, [facility] Primary Care Unavailable LAZAR, SULEMA L. Referring Unavailable LAZAR, SULEMA L. Admitting Unavailable ROJO, KIMO Attending Unavailable ETZEL, [facility] Primary Care Unavailable LAZAR, SULEMA L. Referring Unavailable LAZAR, SULEMA L. Admitting Unavailable JAYYNATALI Attending Unavailable ETZEL, [facility] Primary Care Unavailable LAZAR, SULEMA L. Referring Unavailable LAZAR, SULEMA L. Admitting Unavailable ETZEL, [facility] Primary Care Unavailable PATTI SONG Attending Unavailable LAZAR, SULEMA L. Referring Unavailable LAZAR, SULEMA L. Admitting Unavailable JAYYNATALI Attending Unavailable ETZEL, [facility] Primary Care Unavailable ETZEL, [facility] Primary Care Unavailable ETZEL, [facility] Admitting Unavailable LAZAR, SULEMA L. Referring Unavailable LAZAR, SULEMA L. Admitting Unavailable JAYYNATALI Attending Unavailable ETZEL, [facility] Primary Care Unavailable LAZAR, SULEMA L. Referring Unavailable LAZAR, SULEMA L. Admitting Unavailable STURTS, GERMAINE Attending Unavailable ETZEL, [facility] Primary Care Unavailable LAZAR, SULEMA L. Referring Unavailable LAZAR, SULEMA L. Admitting Unavailable GERMAINE ALMONTE Attending Unavailable ETZEL, [facility] Primary Care Unavailable PEDRO SIDDIQUI JR. Attending Unav ailable ETZEL, [facility] Primary Care Unavailable HAL VELASQUEZ Attending Unavailable ETZEL, [facility] Primary Care Unavailable LAZAR, SULEMA L. Referring Unavailable LAZAR, SULEMA L. Admitting Unavailable NATALI HOPE Attending Unavailable ETZEL, [facility] Primary Care Unavailable LAZAR, SULEMA L. Referring Unavailable LAZAR, SULEMA L. Admitting Unavailable NATALI HOPE Attending Unavailable ETZEL, [facility] Primary Care Unavailable LAZAR, SULEMA L. Referring Unavailable LAZAR, SULEMA L. Admitting Unavailable ETZEL, [facility] Primary Care Unavailable PATTI SONG Attending Unavailable Etzel CHALK TESTER-[facility] [place] Primary Care Provider [phone] FORREST THAPA Referring Unavailable FORREST THAPA [facility] Unavailable Etzel CHALK TESTER-[facility] [place] Primary Care Provider SICKLE, JANA Referring Unavailable SICKLE, JANA [facility]ending Un[facility] Care Unavailable Etzel CHALK TESTER-[facility] [place] Primary Care Provider [phone] LOYD PRADO Attending Unavailable SICKLE, JANA Referring Unavailable ETZEL, MEME Primary Care Unavailable SICKLE, JANA Referring Unavailable ETZEL, MEME Primary Care Unavailable LOYD PRADO Attending Unavailable SICKLE, JANA Referring Unavailable ETZEL, MEME Primary Care Unavailable LOYD PRADO Attending Unavailable LOYD PRADO Referring Unavailable ETZEL, MEME Primary Care Unavailable PRADO, LOYD Referring Unavailable ETZEL, ELROY Primary Care Unavailable PRADOLOYD FERREIRA Attending Unavailable LOYD PRADO Attending Unavailable SICKLE, JANA Referring Unavailable ETZEL, ELROY Primary Care Unavailable Unavailable Primary Care Provider Unavailabl e ETTESS, ELROY Primary Care Unavailable MEME PRASAD Attending Unavailable LINDSEY RITCHIE Attending Unavailable SELF, SELF Referring Unavailable ETZEL, MEME Primary Care Unavailable SICKLE, JANA Referring Unavailable SICKLE, JANA Attending Unavailable ETZEL, MEME Primary Care Unavailable SELF, SELF Referring Unavailable ETZEL, ELROY Primary Care Unavailable KAI WYLIE Attending Unavailable ETZEL, ELROY Primary Care Unavailable SUBIT, ANNE-MARIE Referring Unavailable SUBIT, ANNE-MARIE Attending Unavailable SUBIT, ANNE-MARIE Admitting Unavailable MEME GIMENEZ Primary Care Unavailable Dr. Maribell Yang DO Attending Physician Dr. Maribell Yang DO Referring Provider MARIBELL HARRISON Referring Unavailab FABIOLA Frazier Attending Unavailable MUSHTAQ BRAVO Primary Care Unavailable Jana Vieyra Attending Physician Unavailable Marcy PRIESTCLenora Attending Physician [phone] Lenora Vidal NP Attending Unavailable Maribell Yang Attending UnavailJana Mayfield Attending Unavailable Jana Vieyra Attending Unavailable Jana Vieyra Attending Unavailable Maribell Yang Attending UnavailMaribell Bettencourt Referring UnavailLenora Trimble NP Attending Unavailable MEME GIMENEZ Primary Care Unavailable MEME CLINE Attending Unavailable Allergies Allergy Classification Reported Allergen(s) Allergy Type Date of Onset Reaction(s) Facility coconut allergenic extract (1 source) coconut allergenic extract Drug Allergy 7 [facility] Coconut Oil (2 sources) Coconut Oil Drug Allergy 7 [facility] Latex (3 sources) Latex Substance Allergy 7 Dermatitis, Atopic Dermatitis [facility] (20 sources) coconut allergenic extract; Translations: [COCONUT OIL] Drug Allergy 7 [facility] Work Phone: (20 sources) Latex; Translations: [LATEX] Propensity to adverse reactions to drug 7 Atopic Dermatitis, Dermatitis [facility] Work Phone: (20 sources) *TAPE Propensity to adverse reactions 7 [facility] Work Phone: (20 sources) Coconut Oil Drug Allergy 7 [facility] (20 sources) Silk adhesive tape; Translations: [Unknown] Propensity to adverse reactions to substance 3 [facility] (20 sources) prasterone; Translations: [PRASTERONE (DHEA)] Drug Allergy 1 [facility] (9 sources) calcium phosphate / prasterone Drug Allergy 1 [facility] (18 sources) Wound Dressing Adhesive Propensity to adverse reactions to drug 3 [facility] (16 sources) Latex Propensity to adverse reactions to drug 7 Atopic Dermatitis [facility] (16 sources) Prasterone Propensity to adverse reactions to drug 1 [facility] (3 sources) Coconut extract Drug Allergy 5 [place] (3 sources) natural latex rubber Allergy to substance 5 [facility] Comment on above: SWELLING (1 source) Coconut extract Drug Allergy 5 [facility] Repository (1 source) natural latex rubber Drug allergy (disorder) 5 [facility] Repository Medications Current Medications Medication Drug [...] dose Start: 03-10-2020 take 1 capsule by [facility] once daily doxycycline hyclate (VIBRAMYCIN) 100 MG [...] Discontinued Start: 09-19-2018 take 1 tablet by [facility] once daily, then take 3 tablets [...] Active Start: 04-23-2019 take 1 capsule by [facility] twice daily DULoxetine [address] Particles capsule DR Indications: Fibromyalgia , Anxiety Take 1 capsule by mouth 2 times daily. 30 capsule 1 04/23/2019 Active Start: 11-10-2018 take 1 capsule by [facility] once daily duloxetine [address] Particles capsule DR Take 30 mg by mouth daily. 2 11/10/2018 Active Start: 11-10-2018 take 1 capsule by [facility] twice daily duloxetine [address] [...] Active Start: 06-01-2019 take 0.5 tablet by [facility] at bedtime, then take 1 tablet by [...] daily Start: 10-27-2024 take 1 tablet by [facility] twice daily famotidine 40 MG tablet [...] every morning. Active take 1 capsule by [facility] once daily in the morning lisdexamfetamine (VYVANSE) [...] parts viscous lidocaine 2%, diphenhydramine 12.5mg/5mL, maalox 620te-384al-77us/5mL (1 source) Start: 09-22-2018 End: 10-02-2018 magic mouthwash susp equal parts viscous lidocaine 2%, diphenhydramine 12.5mg/5mL, maalox 006lf-[id number]-52om/5mL Swish and spit 10 mL every 4 [...] daily. 6 tablet 0 08/08/2020 Active Pnv No.267-Ht-[id number]-Dha-Epa-Fi sh 400 mcg-35 mg- 25 mg-5 mg tablet,chewable (3 sources) Start: 11-13-19 25 polyethylene glycol 3350 24124 mg powder for oral solution (6 sources) Osmotic Laxative Start: 06-01-19 20 take 34 g by mouth once daily polyethylene glycol (MiraLax) Powder powder Indications: Constipation, unspecified constipation type Take 34 g by mouth daily. 0 06/01/2019 Active Prenat w/o M-LaNx-XuHy-DSS-FA ( vitamin) tablet (7 sources) take 1 tablet by mouth once daily Prenat w/o O-TfEl-FjMs-DSS-FA ( vitamin) tablet Take 1 tablet by [...] 08/05/2022 Start: 06-08-2019 take 1 capsule by [facility] three times daily as needed for constipation [...] Bandages & Supports (Knee Brace Adjustable Hinged) [facility] Indications: Patellofemoral instability, right -FIT AND APPLY HINGE KNEE BRACE 1 Each 08/06/2022 05/26/2024 Discontinued Start: 08-06-2022 Elastic Bandag es & Supports (Knee Brace Adjustable Hinged) [facility] Indications: Patellofemoral instability, right -FIT AND APPLY HINGE KNEE BRACE 1 Each 08/06/2022 Active Start: 08-06-2022 Elastic Bandag es & Supports (Knee Brace Adjustable Hinged) [facility] Indications: Patellofemoral instability, right -FIT AND APPLY [...] Auto (Unsp spec) [#/Vol] 1.26 10*3/uL 0.83-4.51 [facility] Absolute neutrophil countOrd ered By: Lenora Vidal on 12-07-2024 Neutrophils (Bld) [#/Vol] 6.9 10*3/uL 2.0-7.7 [facility] Anion gap in Serum or Plasma Ordered By: Lenoraaustyn Vidal on 12-07-2024 Anion gap [Moles/Vol] 12 mmol/L 5- [facility] Automated lymphocyte count a s percentage of total leukocytesOrdered By: Lenora Vidal on 12-07-2024 Lymphocytes/100 WBC Auto (Unsp spec) 14.1 % Low 19- [facility] BUN/creatinine ratioOrdered By: Lenoraaustyn Vidal on 12-07-2024 Urea nitrogen/Creatinine [Mass ratio] 15.3 mg/mg - [facility] Basophil percentageOrdered B y: Lenora Vidal on 12-07-2024 Basophils/100 WBC (Bld) 0.3 % 0-1 [facility] Bilirubin, totalOrdered By: Lenoraaustyn Vidal on 12-07-2024 Bilirubin [Mass/Vol] mg/dL 0.00-1.30 [facility] CBC W/Diff, Automatedon 10- Absolute Lymph 1.26 X10 3/uL Normal 0.83-4.51 [facility] Comment on above: Performed By: #### L [id number], L501.0900, L100.0100 #### [facility] [address] [place], [address] Absolute Neut 6.9 X10 3/uL Normal 2.0-7.7 [facility] Comment on above: Performed By: #### L [id number], L501.0900, L100.0100 #### [facility] [address] [place], [address] Basophils/100 WBC (Bld) 0.3 % Normal 0-1 [facility] Comment on above: Performed By: #### L [id number], L501.0900, L100.0100 #### [facility] [address] [place], [address] Eosinophils/100 WBC (Bld) 1.3 % Normal 0-5 [facility] Comment on above: Performed By: #### L [id number], L501.0900, L100.0100 #### [facility] [address] [place], [address] Erythrocyte distribution width (RBC) [Ratio] 12.7 % Normal 11.6-14.6 [facility] Comment on above: Performed By: #### L [id number], L501.0900, L100.0100 #### [facility] [address] [place], [address] Hematocrit (Bld) [Volume fraction] 30.5 % Low 37-47 [facility] Comment on above: Performed By: #### L 500.4050, L501.0900, L100.0100 #### [facility] [address] [place], [address] Hemoglobin (Bld) [Mass/Vol] 10.3 g/dL Low 12.0-15.0 [facility] Comment on above: Performed By: #### L 500.4050, L501.0900, L100.0100 #### [facility] [address] [place], [address] IG% 0.700 Normal 0.0-0.9 [facility] Comment on above: Result Comment: IG% - Immature Granulocytes (promyelocytes, myelocytes and metamyelocytes) > 1% indicates that a LEFT SHIFT is Present. Performed By: #### L 500.4050, L501.0900, L100.0100 #### [facility] [address] [place], [address] Lymphocytes/100 WBC (Bld) 14.1 % Low 19-41 [facility] Comment on above: Performed By: #### L 500.4050, L501.0900, L100.0100 #### [facility] [address] [place], [address] MCH (RBC) [Entitic mass] 30.5 pg Normal 27.0-32.0 [facility] Comment on above: Performed By: #### L 500.4050, L501.0900, L100.0100 #### [facility] [address] [place], [address] MCHC (RBC) [Mass/Vol] 33.8 g/dL Normal 32-36 [facility] Comment on above: Performed By: #### L 500.4050, L501.0900, L100.0100 #### [facility] [address] [place], [address] MCV (RBC) [Entitic vol] 90.2 fL Normal 81-99 [facility] Comment on above: Performed By: #### L 500.4050, L501.0900, L100.0100 #### [facility] [address] [place], [address] Monocytes/100 WBC (Bld) 6.3 % Normal 0-10 [facility] Comment on above: Performed By: #### L 500.4050, L501.0900, L100.0100 #### [facility] [address] [place], [address] Neutrophils/100 WBC (Bld) 77.3 % High 47-70 [facility] Comment on above: Performed By: #### L 500.4050, L501.0900, L100.0100 #### [facility] [address] [place], [address] Nucleated RBC (Bld) [#/Vol] 0 10*3/uL Normal 0-5 [facility] Comment on above: Performed By: #### L 500.4050, L501.0900, L100.0100 #### [facility] [address] [place], [address] Platelet mean volume (Bld) [Entitic vol] 10.4 fL Normal 6.2-12.0 [facility] Comment on above: Performed By: #### L 500.4050, L501.0900, L100.0100 #### [facility] [address] [place], [address] Platelets (Bld) [#/Vol] 261 10*3/uL Normal 150-450 [facility] Comment on above: Performed By: #### L 500.4050, L501.0900, L100.0100 #### [facility] [address] [place], [address] RBC (Bld) [#/Vol] 3.38 10*6/uL Low 4.2-5.4 [facility] Comment on above: Performed By: #### L 500.4050, L501.0900, L100.0100 #### [facility] [address] [place], [address] RDW SD 41.1 fl Normal 35.1-43.9 [facility] Comment on above: Performed By: #### L 500.4050, L501.0900, L100.0100 #### [facility] [address] [place], [address] WBC (Bld) [#/Vol] 8.9 10*3/uL Normal 4.4-11.0 [facility] Comment on above: Performed By: #### L 500.4050, L501.0900, L100.0100 #### [facility] [address] [place], [address] Carbon dioxide, total [Moles /volume] in Central venous bloodOrdered By: Lenora Vidal on 12-07-2024 CO2 [Moles/Vol] 19.7 mmol/L Low 21.0-32.0 [facility] Chloride assayOrdered By: Enio Vidal on 12-07-2024 Chloride [Moles/Vol] 106 mmol/L 98-108 [facility] Comprehensive Metabolic Prof ilon 12-07-2024 Albumin [Mass/Vol] 3.3 g/dL Low 3.5-5.0 [facility] Comment on above: Performed By: #### L 500.4050, L501.0900, L100.0100 #### [facility] [address] [place], [address] Albumin/Globulin [Mass ratio] 1.2 {ratio} Normal 0.9-2.4 [facility] Comment on above: Performed By: #### L 500.4050, L501.0900, L100.0100 #### [facility] [address] [place], [address] ALK PHOS 200 U/L High 35-104 [facility] Comment on above: Performed By: #### L 500.4050, L501.0900, L100.0100 #### [facility] [address] [place], [address] ALT [Catalytic activity/Vol] 10 U/L Normal <=34 [facility] Comment on above: Performed By: #### L 500.4050, L501.0900, L100.0100 #### [facility] [address] [place], [address] AST [Catalytic activity/Vol] 17 U/L Normal <=31 [facility] Comment on above: Performed By: #### L 500.4050, L501.0900, L100.0100 #### [facility] [address] [place], [address] BUN/CRE 15.3 RATIO Normal 10-20 [facility] Comment on above: Performed By: #### L 500.4050, L501.0900, L100.0100 #### [facility] [address] [place], [address] Calcium [Mass/Vol] 9.1 mg/dL Normal 7.6-11.0 [facility] Comment on above: Performed By: #### L 500.4050, L501.0900, L100.0100 #### [facility] [address] [place], [address] Chloride [Moles/Vol] 106 mmol/L Normal 98-108 [facility] Comment on above: Performed By: #### L 500.4050, L501.0900, L100.0100 #### [facility] [address] [place], [address] CO2 [Moles/Vol] 19.7 mmol/L Low 21.0-32.0 [facility] Comment on above: Performed By: #### L 500.4050, L501.0900, L100.0100 #### [facility] [address] [place], [address] Creatinine [Mass/Vol] 0.56 mg/dL Low 0.70-1.20 [facility] Comment on above: Performed By: #### L 500.4050, L501.0900, L100.0100 #### [facility] [address] [place], [address] GAP 12 Normal 5-15 [facility] Comment on above: Performed By: #### L 500.4050, L501.0900, L100.0100 #### [facility] [address] [place], [address] GFR/1.73 sq M.predicted among non-blacks MDRD (S/P/Bld) [Vol rate/Area] 133 mL/min/{1.73_m2} Normal >60 [facility] Comment on above: Result Comment: mL/m in/1.73m2 CKD-EPI Creatinine Equation (2020) Performed By: #### L 500.4050, L501.0900, L100.0100 #### [facility] [address] [place], [address] Globulin (S) [Mass/Vol] 2.7 g/dL Normal 2.2-4.2 [facility] Comment on above: Performed By: #### L 500.4050, L501.0900, L100.0100 #### [facility] [address] [place], [address] Glucose [Mass/Vol] 68 mg/dL Low 70-99 [facility] Comment on above: Performed By: #### L 500.4050, L501.0900, L100.0100 #### [facility] [address] [place], [address] Potassium [Moles/Vol] 4.1 mmol/L Normal 3.3-5.1 [facility] Comment on above: Performed By: #### L 500.4050, L501.0900, L100.0100 #### [facility] [address] [place], [address] Sodium [Moles/Vol] 138 mmol/L Normal 133-145 [facility] Comment on above: Performed By: #### L 500.4050, L501.0900, L100.0100 #### [facility] [address] [place], [address] T BILI < 0.15 Normal 0.00-1.30 [facility] Comment on above: Performed By: #### L 500.4050, L501.0900, L100.0100 #### [facility] [address] [place], [address] T PROT 6.0 g/dL Normal 5.9-8.4 [facility] Comment on above: Performed By: #### L 500.4050, L501.0900, L100.0100 #### [facility] [address] [place], [address] Urea nitrogen [Mass/Vol] 9 mg/dL Normal 4-19 [facility] Comment on above: Performed By: #### L 500.4050, L501.0900, L100.0100 #### [facility] [address] [place], [address] Eosinophil percentageOrdered By: Lenora Vidal on 12-07-2024 Eosinophils/100 WBC (Bld) 1.3 % 0-5 [facility] Erythrocyte distribution wid th ratioOrdered By: Lenora Vidal on 12-07-2024 Erythrocyte distribution width (RBC) [Ratio] 12.7 % 11.6-14.6 [facility] Erythrocyte distribution wid th standard deviationOrdered By: Lenora Vidal on 12-07-2024 Erythrocyte distribution width (RBC) [Ratio] 41.1 fl 35.1-43.9 [facility] Glomerular filtration rate ( GFR) estimation/1.73 sq m using serum, plasma, or whole bOrdered By: Lenora Vidal on 12-07-2024 GFR/1.73 sq M.predicted among non-blacks MDRD (S/P/Bld) [Vol rate/Area] 133 mL/min/{1.73_m2} >60 [facility] Comment on above: mL/min/1.73m2 CKD-EP I Creatinine Equation (2020) Hematocrit Auto (Bld) [Volum e fraction]Ordered By: Lenora Vidal on 12-07-2024 Hematocrit (Bld) [Volume fraction] 30.5 % Low 37-47 [facility] Hemoglobin measurementOrdere d By: Lenora Vidal on 12-07-2024 Hemoglobin (Bld) [Mass/Vol] 10.3 g/dL Low 12.0-15.0 [facility] Immature granulocytes/100 WB C Auto (Bld)Ordered By: Lenora Vidal on 12-07-2024 Immature granulocytes/100 WBC (Bld) 0.700 % 0.0-0.9 [facility] Comment on above: IG% - Immature Granu locytes (promyelocytes, myelocytes and metamyelocytes) > 1% indicates that a LEFT SHIFT is Present. Laboratory - Chemistry and C hemistry - challengeOrdered By: Lenora Vidal on 12-07-2024 AST [Catalytic activity/Vol] 17 U/L <32 [facility] MCV (mean corpuscular volume ) determinationOrdered By: Lenora Vidal on 12-07-2024 MCV (RBC) [Entitic vol] 90.2 fL 81-99 [facility] Mean corpuscular hemoglobin (MCH) determinationOrdered By: Lenora Vidal on 12-07-2024 MCH (RBC) [Entitic mass] 30.5 pg 27.0-32.0 [facility] Mean corpuscular hemoglobin concentration (MCHC) determinationOrdered By: Lenora Vidal on 12-07-2024 MCHC (RBC) [Mass/Vol] 33.8 g/dL 32-36 [facility] Mean platelet volume determi nationOrdered By: Lenora Vidal on 12-07-2024 Platelet mean volume (Bld) [Entitic vol] 10.4 fL 6.2-12.0 [facility] Monocyte percentageOrdered B y: Lenora Vidal on 12-07-2024 Monocytes/100 WBC (Bld) 6.3 % 0-10 [facility] Neutrophil percentageOrdered By: Lenora Vidal on 12-07-2024 Neutrophils/100 WBC (Bld) 77.3 % High 47-70 [facility] Nucleated red blood cell per centageOrdered By: Lenora Vidal on 12-07-2024 Nucleated RBC/100 WBC (Bld) [Ratio] 0 % 0-5 [facility] Charge Account Authorizer Office Visit Reporton 12-07-2024 Charge Account Authorizer Office Visit Report [facility], [address] [place] [address] OFFICE VISIT Date of Service: 12/07/24 MR#: [id number] Acct: [id number] Name: ETHAN HIGH Rep #: [id number] 18 : 2005 Provider: DASIA miranda Age/Sex: 19/F Location: [facility] Status: Signed Intake Vital Signs 11/19/24 13:02 12/07/24 08:17 Height 5 ft 8.5 in 5 ft 8.5 in Weight: 183 lb 5 oz BMI 27.4 BP 122/81 H Intake Visit Reasons: 32 WK 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 Normal [facility] Platelet countOrdered By: Enio Vidal on 12-07-2024 Platelets (Bld) [#/Vol] 261 10*3/uL 150-450 [facility] Potassium measurement (mass/ volume)Ordered By: Lenora Vidal on 12-07-2024 Potassium (Unsp spec) [Mass/Vol] 4.1 mmol/L 3.3-5.1 [facility] Protein+Creatinine Ratio,Uri neon 12-07-2024 PROT:CRE RATIO 169 mg/g CRE Normal 0-200 [facility] Comment on above: Performed By: #### L 500.4050, L501.0900, L100.0100 #### [facility] Laboratory [address] [place], [address] Protein (U) [Mass/Vol] 14.4 mg/dL High 0.0-12.0 [facility] Comment on above: Performed By: #### L 500.4050, L501.0900, L100.0100 #### [facility] [address] [place], [address] UR CREAT 85.20 mg/dL Normal 28.00-217.00 [facility] Comment on above: Performed By: #### L 500.4050, L501.0900, L100.0100 #### [facility] [address] [place], [address] RBC Auto (Bld) [#/Vol]Ordere d By: Lenora Vidal on 12-07-2024 RBC (Bld) [#/Vol] 3.38 10*6/uL Low 4.2-5.4 [facility] Random urine creatinine melissa urement (mass/volume)Ordered By: Lenora Vidal on 12-07-2024 Creatinine Unsp time (U) [Mass/Vol] 85.20 mg/dL 28.00-217.00 [facility] Serum creatinine measurement (mass/volume)Ordered By: Lenora Vidal on 12-07-2024 Creatinine [Mass/Vol] 0.56 mg/dL Low 0.70-1.20 [facility] Serum globulin measurementOr dered By: Lenora Vidal on 12-07-2024 Globulin (S) [Mass/Vol] 2.7 g/dL 2.2-4.2 [facility] Serum glucose measurement (m ass/volume)Ordered By: Lenora Vidal on 12-07-2024 Glucose [Mass/Vol] 68 mg/dL Low 70-99 [facility] Serum or plasma alanine james otransferase (ALT) measurementOrdered By: Lenora Vidal on 12-07-2024 ALT [Catalytic activity/Vol] 10 U/L <35 [facility] Serum or plasma albumin melissa urement (mass/volume)Ordered By: Lenora Vidal on 12-07-2024 Albumin [Mass/Vol] 3.3 g/dL Low 3.5-5.0 [facility] Serum or plasma albumin/glob ulin mass ratioOrdered By: Lenora Vidal on 12-07-2024 Albumin/Globulin [Mass ratio] 1.2 {ratio} 0.9-2.4 [facility] Serum or plasma alkaline doris sphatase measurementOrdered By: Lenora Vidal on 12-07-2024 ALP [Catalytic activity/Vol] 200 U/L High 35-104 [facility] Serum or plasma calcium melissa urement (mass/volume)Ordered By: Lenora Vidal on 12-07-2024 Calcium [Mass/Vol] 9.1 mg/dL 7.6-11.0 [facility] Serum or plasma urea nitroge n measurement (mass/volume)Ordered By: Lenora Vidal on 12-07-2024 Urea nitrogen [Mass/Vol] 9 mg/dL 4-19 [facility] Sodium levelOrdered By: Meghan Vidal on 12-07-2024 Sodium [Moles/Vol] 138 mmol/L 133-145 [facility] Total proteinOrdered By: Gladis benton Marcy on 12-07-2024 Protein [Mass/Vol] 6.0 g/dL 5.9-8.4 [facility] Urine protein measurement (m ass/volume)Ordered By: Lenora Vidal on 12-07-2024 Protein (U) [Mass/Vol] 14.4 mg/dL High 0.0-12.0 [facility] Urine protein/creatinine mas s ratioOrdered By: Lenora Vidal on 12-07-2024 Protein/Creatinine (U) [Mass ratio] 169 mg/g CRE 0-200 [facility] White blood cell (WBC) count Ordered By: Lenora Vidal on 12-07-2024 WBC (Bld) [#/Vol] 8.9 10*3/uL 4.4-11.0 [facility] ED Prov Noteon 12-04-2024 ED Prov Note ED PROVIDER NOTE [facility] EMERGENCY DEPARTMENT NAME: Ethan Hernandez Means AGE: 19 y.o. : 2005 VISIT DATE: 12/04/2024 CSN: [id number] PCP: Meme Gimenez, ARNOLD Chief Complaint Patient [...] Location: Main OR; Service: Orthopedic COLONOSCOPY 12/12/2018 [facility] CYSTO LATISHA LASER, RETRO, URETEROSCOPY, STENT (USUAL) Right 07/26/2022 Procedure: CYSTOSCOPY WITH RETROGRADE STONE MANIPULATION STENT INSERTION WITH LASER; Surgeon: Candace Trammell MD; Location: Main OR; Service: Urology CYSTO URETERAL STENT REMOVAL 08/02/2022 ESOPHAGOGASTRODUODENOSCO PY 12/12/2018 [facility] TONSILLECTOMY age 4 US BREAST BIOPSY [...] to home/s (more content not included)... Normal [facility] POC COV2/FLU/RSV MOLECULAR P Inderjit 12-04-2024 POC INFLUENZA A Not detected Normal Not Detected [facility] Comment on above: Performed By: #### P [id number] #### [facility] [address] [address] Robert Nguyen D.O. [id number] POC INFLUENZA B Not detected Normal Not Detected [facility] Comment on above: Performed By: #### P [id number] #### [facility] [address] [address] Robert Nguyen D.O. [id number] POC RSV Not detected Normal Not Detected [facility] Comment on above: Performed By: #### P [id number] #### [facility] [address] [address] Robert Nguyen D.O. [id number] SARS-CoV-2 (COVID-19) RNA GISSELLE+probe Ql (Unsp spec) Not detected Normal Not Detected [facility] Comment on above: Result Comment: This test was performed under the FDA's Emergency Use Authorization (EUA). Testing was performed using the Xpert Xpress SARS-CoV-2 RT-PCR [employer] assay on the GeneXpert Dx platform. This test has not been approved for use in asymptomatic patients and its performance in this patient population has not been evaluated. Negative results do not rule out the presence of SARS-CoV-2/COVID-19. Fact sheets for this EUA can be found at the following links: For Healthcare Providers: https://www.fda.gov/media/915496/download For Patients: https://www.fda.gov/media/313180/download Performed By: #### P [id number] #### [facility] [address] [address] Roebrt Nguyen D.O. [id number] POC STREP A- MOLECULARon POC STREP A MOLECULAR Not detected Normal Not Detected [facility] Comment on above: Performed By: #### P [id number] #### [facility] [address] [address] Robert Nguyen D.O. [id number] Urine Cultureon 11-22-2024 URC #1, 2 Below infectio n level. Urine Culture Streptococcus agalactiae (B) Chitina Count 1000-10,000 Mixed Gram Positive Organisms Mixed Gram Positive Organisms MIXC Mixed contaminants. Submit a new specimen if indicated. Streptococcus agalactiae (B): REACTION Ampicillin Islt DARSHAN <=0.25 cefTRIAXone Islt DARSHAN <=0.12 S Clindamycin.induced Susc Islt Linezolid Islt DARSHAN <=2 S Vancomycin Islt DARSHAN 0.5 S Normal [facility] Comment on above: Performed By: #### M 100.2200 #### [facility] Laboratory [address] [place], [address] Laboratory - Chemistry and C hemistry - challengeOrdered By: Maribell Franklin on 11-19-2024 Glucose Ql (U) Negative [facility] Laboratory - UrinalysisOrder ed By: Maribell Franklin on 11-19-2024 Protein Ql (U) Negative [facility] Charge Account Authorizer Office Visit Reporton 11-19-2024 Charge Account Authorizer Office Visit Report [facility] [address], [address] [place] [address] OFFICE VISIT Date of Service: 11/19/24 MR#: [id number] Acct: [id number] Name: MARY ETHAN SINGH Rep #: [id number] 16 : 2005 Provider: Dr. 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 -???-???-???-???-???-??? - JV- new DENIS from [facility]. was not happy with care there. Needs [...] Dental Care, (more content not included)... Normal [facility] Urine cultureOrdered By: Holly Franklin on 11-19-2024 Bacteria identified Cx Nom (U) Streptococcus agalactiae (B) Abnormal [facility] Bacteria identified Cx Nom (U) Positive Abnormal [facility] URINE CULTUREon 11-06-2024 Bacteria identified Cx Nom (U) SPECIMEN DESCRIPTION URINE CLEAN CATCH COLONY COUNT 30,000-40,000 C/C/ML CULTURE STREPTOCOCCUS AGALACTIAE SERO GROUP B * Result Note: Testing performed at [place] [address] * REPORT STATUS 11/06/2024 * Result Note: FINAL * ------- ORGANISM STREPTOCOCCUS AGALACTIAE SERO GROUP B * Result Note: STREPTOCOCCUS AGALACTIAE SERO GROUP B * METHOD DARSHAN AMPICILLIN <=0.25 SUSCEPTIBLE PENICILLIN G <=0.06 SUSCEPTIBLE VANCOMYCIN 0.5 SUSCEPTIBLE LEVOFLOXACIN 1 SUSCEPTIBLE LINEZOLID <=2 SUSCEPTIBLE CEFOTAXIME <=0.12 SUSCEPTIBLE CEFTRIAXONE <=0.12 SUSCEPTIBLE INDUCIBLE CLINDAMYCIN RESISTANCE NEGATIVE Normal [facility] Comment on above: Performed By: #### A URNC #### [place] [address] Testing performed at [address] [address] URINE MACROSCOPICon 11-04-19 25 Bilirubin Ql (U) Negative Normal NEGATIVE [facility] Comment on above: Performed By: #### U DARSHAN, AWETP, UMAC #### [place] [address] Clarity (U) CLEAR Normal CLEAR [facility] Comment on above: Performed By: #### U DARSHAN, AWETP, UMAC #### Testing performed at [address] [address] Color (U) YELLOW Normal YELLOW [facility] Comment on above: Performed By: #### U DARSHAN, AWETP, UMAC #### Testing performed at [address] [address] Glucose Ql (U) Negative Normal NEGATIVE [facility] Comment on above: Performed By: #### U DARSHAN, AWETP, UMAC #### Testing performed at [address] [address] pH (U) 7.0 [pH] Normal 5.0-7.0 [facility] Comment on above: Performed By: #### U DARSHAN, AWETP, UMAC #### Testing performed at [address] [address] URINE HEMOGLOBIN Negative Normal NEGATIVE [facility] Comment on above: Performed By: #### U DARSHAN, AWETP, UMAC #### Testing performed at [address] [place] [address] URINE KETONE Negative Normal NEGATIVE [facility] Comment on above: Performed By: #### U DARSHAN, AWETP, UMAC #### Testing performed at [address] [place] [address] URINE LEUKOTEST SMALL Abnormal NEGATIVE [facility] Comment on above: Performed By: #### U DARSHAN, AWETP, UMAC #### Testing performed at [address] [address] URINE NITRATES Negative Normal NEGATIVE [facility] Comment on above: Performed By: #### U DARSHAN, AWETP, UMAC #### Testing performed at [address] [address] URINE SPEC GRAVITY 1.015 Normal 1.010-1.025 [facility] Comment on above: Performed By: #### U DARSHAN, AWETP, UMAC #### Testing performed at [address] [address] URINE TOTAL PROTEIN Negative Normal NEGATIVE [facility] Comment on above: Performed By: #### U DARSHAN, AWETP, UMAC #### Testing performed at [address] [address] Urobilinogen Qn (U) 0.2 {Alcon'U}/dL Normal <1.0 [facility] Comment on above: Performed By: #### U DARSHAN, AWETP, UMAC #### Testing performed at [address] [address] URINE MICROSCOPICon 11-04-19 25 Bacteria LM.HPF (Urine sed) [#/Area] Negative Normal NEGATIVE [facility] Comment on above: Performed By: #### U DARSHAN, AWETP, UMAC #### Testing performed at [address] [address] CASTS N[address] Normal NONE [facility] Comment on above: Performed By: #### U DARSHAN, AWETP, UMAC #### Testing performed at [address] [address] CRYSTAL NONE Normal NONE [facility] Comment on above: Performed By: #### U DARSHAN, AWETP, UMAC #### Testing performed at [address] [address] Epithelial cells LM Ql (Urine sed) [address] [facility] Comment on above: Performed By: #### U DARSHAN, AWETP, UMAC #### Testing performed at [address] [address] Mucus Ql (Urine sed) Negative Normal NEGATIVE [facility] Comment on above: Performed By: #### U DARSHAN, AWETP, UMAC #### Testing performed at [address] [place] [address] URINE COMMENT REFLEX CULTURE PER ESTABLISHED CRITERIA. Normal [facility] Comment on above: Performed By: #### U DARSHAN, AWETP, UMAC #### Testing performed at [address] [address] URINE RBC'S Negative Normal NEGATIVE [facility] Comment on above: Performed By: #### U DARSHAN, AWETP, UMAC #### Testing performed at [address] [address] URINE WBC'S 1 TO [address] [facility] Comment on above: Performed By: #### U DARSHAN, AWETP, UMAC #### Testing performed at [address] [address] WET PREPon 11-03-2024 CLUE CELL Negative Normal NEGATIVE [facility] Comment on above: Performed By: #### U DARSHAN, AWETP, UMAC #### Testing performed at [address] [address] COMMENT VERIFIED BY DUP TESTING Normal A [facility] Comment on above: Performed By: #### U DARSHAN, AWETP, UMAC #### Testing performed at [address] [address] SPECIMEN DESCRIPTION URINE - OTHER Normal A [facility] Comment on above: Performed By: #### U DARSHAN, AWETP, UMAC #### Testing performed at [address] [address] TRICHOMONAS Negative Normal NEGATIVE [facility] Comment on above: Performed By: #### U DARSHAN, AWETP, UMAC #### Testing performed at [address] [address] Yeast LM Ql (Urine sed) Negative Normal NEGATIVE [facility] Comment on above: Performed By: #### U DARSHAN, AWETP, UMAC #### Testing performed at [address] [place] [address] OB ultrasound panelon 2024 OBSTETRICS REPORT (Signed Final 10/27/2024 09:52 am) PATIENT INFO: ID #: [id number] : [birth year] (19 yrs)(F) Name: ETHAN HERNANDEZ Visit Date: 10/27/2024 09:18 am MEANS PERFORMED BY: Performed By: Haylee ALEXANDER, RDMS Attending: Loyd Prado MD Referred By: Jana Sanchez MD Ref. Address: [address] [facility] [place] [address] Location: [place] SERVICE(S) PROVIDED: Follow-up [address] INDICATIONS: Evaluate interval growth of fetus Z36 [...] Our ultrasound lab is accredited by [employer] ([employer]). If you would like to discuss your patient's results, please do not hesitate to contact us at [phone]. Loyd Prado MD Electronically Signed Final Report 10/27/2024 09:52 am RADIOLOGY System, Provider Not In - 10/27/2024 OBSTETRICS REPORT (Signed Final 10/27/2024 09:52 am) PATIENT INFO: ID #: [id number] : [birth year] (19 yrs)(F) Name: ETHAN HERNANDEZ Visit Date: 10/27/2024 09:18 am MEANS PERFORMED BY: Performed By: Haylee ALEXANDER, RDMS Attending: Loyd Prado MD Referred By: Jana Sanchez MD Ref. Address: [address] [place] [address], [place] [address] Location: [place] SERVICE(S) PROVIDED: Follow-up [address] INDICATIONS: Evaluate interval growth of fetus Z36 [...] Our ultrasound lab is accredited by [employer] ([employer]). If you would like to discuss your patient's results, please do not hesitate to contact us at [phone]. Loyd Prado MD Electronically Signed Final Report 10/27/2024 09:52 am [facility] Radiology Study observation (narrative) [facility] OB ultrasound panelOrdered B y: Provider System on 10-27-2024 [facility] Cardiac echo study Procedure Ordered By: Jorge Wood on 09-29-2024 Ao ASC index 1.54 cm/m2 [facility] Work Phone: Ao peak karen 1.54 m/s [facility] Work Phone: Ao SOV index 1.66 cm/m2 [facility] Work Phone: Ao STJ index 1.36 cm/m2 [facility] Work Phone: Ao VTI 33.9 cm [facility] Work Phone: Ascending aorta 2.8 cm [facility] Work Phone: AV LVOT peak gradient 5 mmHg [facility] Work Phone: AV mean gradient 6 mmHg [facility] Work Phone: AV peak gradient 9 mmHG [facility] Work Phone: AV valve area 2.45 cm2 [facility] Work Phone: AV Velocity Ratio 0.73 [facility] Work Phone: KATHRYN (continuity Vmax) 2.28 cm2 [facility] Work Phone: KATHRYN (continuity VTI) 2.45 cm2 [facility] Work Phone: KATHRYN index (continuity Vmax) 1.25 m/s [facility] Work Phone: KATHRYN index (continuity VTI) 1.35 cm2/m2 [facility] Work Phone: Avg e' pk karen 0.17 m/s [facility] Work Phone: Avg E/e' ratio 5.2 [facility] Work Phone: Body surface area Derived from formula 1.82 m2 [facility] Work Phone: BP EF 66 % [facility] Work Phone: DI (Vmax) 0.73 [facility] Work Phone: DI (VTI) 0.78 m/2 [facility] Work Phone: E wave decelartion time 259 msec [facility] Work Phone: e' lateral pk karen 0.2 m/s [facility] Work Phone: e' septal pk karen 0.133 m/s [facility] Work Phone: e' septal pk karen 0.13 m/s [facility] Work Phone: E/A ratio 1.98 [facility] Work Phone: E/e' lateral ratio 4.15 [facility] Work Phone: E/e' septal ratio 6.24 [facility] Work Phone: EF SP 2CH 67 [facility] Work Phone: EF SP 4CH 64 [facility] Work Phone: EST RAP 3 mmHg [facility] Work Phone: FS 35 % [facility] Work Phone: IVC ostium 1.05 cm [facility] Work Phone: IVS 0.98 cm [facility] Work Phone: LA AREA 2CH 17.8 cm2 [facility] Work Phone: LA area 4CH 18.3 cm2 [facility] Work Phone: LA ESV BP (MOD) 52 mL [facility] Work Phone: LA ESV BP (MOD) index 29 mL/m2 [facility] Work Phone: LA ESV SP 2CH (MOD) 49 mL [facility] Work Phone: LA ESV SP 4CH (MOD) 55 mL [facility] Work Phone: LA size 3.3 cm [facility] Work Phone: LEFT ATRIAL DIAMETER INDEX 1.81 cm/m2 [facility] Work Phone: LV EDV BP 111 mL [facility] Work Phone: LV EDV SP 2CH 110 mL [facility] Work Phone: LV EDV SP 4CH 112 mL [facility] Work Phone: LV ESV BP 38 mL [facility] Work Phone: LV ESV SP 2CH 36 mL [facility] Work Phone: LV ESV SP 4CH 40 mL [facility] Work Phone: LV mass 168.46 g [facility] Work Phone: LV Mass Index 92.6 g/m2 [facility] Work Phone: LV RWT 0.43 [facility] Work Phone: LV stroke volume BP (ml) 73 mL [facility] Work Phone: LV stroke volume index BP 40.11 mL/m2 [facility] Work Phone: LVIDD 4.77 cm [facility] Work Phone: LVIDS 3.09 cm [facility] Work Phone: LVOT area 3.14 cm2 [facility] Work Phone: LVOT diameter 2 cm [facility] Work Phone: LVOT peak karen 1.12 m/s [facility] Work Phone: LVOT peak VTI 26.5 cm [facility] Work Phone: LVOT stroke volume 83 cm3 [facility] Work Phone: LVOT stroke volume index 45.72 ml/m2 [facility] Work Phone: MV pk A karen 0.42 m/s [facility] Work Phone: MV pk E karen 0.83 m[facility] VTI RATIO PRE STRESS 0.78 [facility]: [facility] ECHO LV BIPLANE SYSTOLIC VOLUME INDEX 20.88 mL/m2 [facility] Work Phone: [facility] ECHO LV BP DIASTOLIC VOLUME INDEX 60.99 mL/m2 [facility] Work Phone: [facility] RVOT VTI RATIO 0.92 [facility] Work Phone: PV mean gradient 2 mmHg [facility] Work Phone: PV peak gradient 3 mmHg [facility] Work Phone: PV PK KAREN 0.93 m/s [facility] Work Phone: PV VTI 18.6 cm [facility] Work Phone: PW 1.02 cm [facility] Work Phone: RA area 4CH (MOD) 15.5 cm2 [facility] Work Phone: RA vol index 4CH (MOD) 20.88 mL/m2 [facility] Work Phone: Right atrium volume 4 chamber method of disks 38 mL [facility] Work Phone: RV Area diastolic 21 cm2 [facility] Work Phone: RV Area systolic 12.1 cm2 [facility] Work Phone: [phone] RV basal diam 3.22 cm [facility] Work Phone: RV Fractional area change 42.4 % [facility] Work Phone: RV [facility]: RV mid diam 2.79 cm [facility] Work Phone: RV S' 15.1 cm/s [facility] Work Phone: RVOT peak gradient 2 mmHg [facility] Work Phone: RVOT peak karen 0.75 m/s [facility] Work Phone: RVOT peak VTI 17.2 cm [facility]: Sinus 3.02 [facility] Work Phone: STJ 2.47 [facility] Work Phone: Stroke Volume 83 cm/mL [facility] Work Phone: Stroke volume index 46 [facility] Work Phone: TAPSE 2.3 cm [facility] Work Phone: [phone] [facility] Work Phone: Cardiac echo study Procedure on [...] study quality was fair. Imaging system used: Fara. Wall Scoring Score Index: 1.00 The left ventricular wall motion is normal. [facility] Radiology Study observation (narrative) [facility] ECHOCARDIOGRAMon 09-29-2024 Echocardiography Normal left ventricu lar chamber size. Normal left ventricular systolic function. Normal regional wall motion. Estimated EF 60-65%. No evidence of diastolic dysfunction. Normal right ventricular chamber size and systolic function. No hemodynamically significant valvular disease. No pericardial effusion. ' Table formatting from the original result was not included. Images from the original result were not included. 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 Normal [...] Reading Role Read Date NICOL Wise Echo Batchelor 09/29/2024 Wall Scoring Score Index: 1.00 The [...] complete ec (more content not included)... Normal [facility] BASIC METABOLIC PANELon 07 Anion gap [Moles/Vol] 4 mmol/L MMOL/L [facility] Calcium [Mass/Vol] 9.4 mg/dL 8.4 - 10. 2 mg/dL [facility] Chloride [Moles/Vol] 107 mmol/L [facility] Comment on above: Please note: Triglyc eride levels of 600mg/dL or higher may positively bias chloride results by approximately 2.1 mmol CO2 [Moles/Vol] 24 mmol/L [facility] Creatinine [Mass/Vol] 0.5 mg/dL Low 0.70 - 1.20 mg/dL [facility] GFR COMMENT Average GFR for 18-2 9 years old = 116. [facility] Comment on above: Chronic Kidney disea se, GFR = <60. Kidney failure, GFR = <15. The GFR estimate is not adjusted for extreme body surface area or acute process, nor has it been validated for women or ethnic groups other than and . GFR/1.73 sq M.predicted MDRD (S/P/Bld) [Vol rate/Area] 166 mL/min/{1.73_m2} ml/min/1.73sq. m [facility] Glucose post fast [Mass/Vol] 89 mg/dL [facility] Comment on above: NORMAL <100 mg/dL PREDIABETES 101-126 mg/dL DIABETES 126 mg/dL or higher Interpretation and review of laboratory results Abnormal [facility] Potassium [Moles/Vol] 3.8 mmol/L [facility] Sodium [Moles/Vol] 135 mmol/L Low [facility] Urea nitrogen [Mass/Vol] 8 mg/dL 7 - 20 mg/dL [facility] BMP FASTINGon 09-08-2024 Anion gap [Moles/Vol] 4 mmol/L Normal [facility] Comment on above: Performed By: #### B BENNY FARRAR #### Testing performed at [address] [address] Calcium [Mass/Vol] 9.4 mg/dL Normal 8.4-10.2 [facility] Comment on above: Performed By: #### B BENNY FARRAR #### Testing performed at [address] [place] [address] Chloride [Moles/Vol] 107 mmol/L Normal 98-107 [facility] Comment on above: Result Comment: Meagan geronimo note: Triglyceride levels of 600mg/dL or higher may positively bias chloride results by approximately 2.1 mmol Performed By: #### B LENI, BENNY #### Testing performed at [address] [address] CO2 [Moles/Vol] 24 mmol/L Normal 22-30 [facility] Comment on above: Performed By: #### B LENI, ACRAYMUNDO #### Testing performed at [address] [address] Creatinine [Mass/Vol] 0.50 mg/dL Low 0.70-1.20 [facility] Comment on above: Performed By: #### B LENI, BENNY #### Testing performed at [address] [address] GFR Information Average GFR for 18-2 9 years old = 116. Normal [facility] Comment on above: Result Comment: Parquetry Floor Layer travon Kidney disease, GFR = <60. Kidney failure, GFR = <15. The GFR estimate is not adjusted for extreme body surface area or acute process, nor has it been validated for women or ethnic groups other than and . Performed By: #### B LENI, BENNY #### Testing performed at [address] [address] GFR/1.73 sq M.predicted MDRD (S/P/Bld) [Vol rate/Area] 166 mL/min/{1.73_m2} Normal [facility] Comment on above: Performed By: #### B LENI, ACRAYMUNDO #### Testing performed at [address] [address] Glucose [Mass/Vol] 89 mg/dL Normal 70-100 [facility] Comment on above: Result Comment: NORMAL <100 mg/dL PREDIABETES 101-126 mg/dL DIABETES 126 mg/dL or higher Performed By: #### B LENI, ACBC #### Testing performed at [address] [address] Potassium [Moles/Vol] 3.8 mmol/L Normal 3.5-5.1 [facility] Comment on above: Performed By: #### B MPF, ACBC #### Testing performed at [address] [address] Sodium [Moles/Vol] 135 mmol/L Low 137-145 [facility] Comment on above: Performed By: #### B MPF, ACBC #### Testing performed at [address] [address] Urea nitrogen [Mass/Vol] 8 mg/dL Normal 7-20 [facility] Comment on above: Performed By: #### B MPF, ACBC #### Testing performed at [address] [address] CBCon 09-08-2024 ABSOLUTE BAS 0.0 10*3/uL Normal 0.0-0.2 [facility] Comment on above: Performed By: #### B MPF, ACBC #### Testing performed at [address] [address] ABSOLUTE EOS 0.0 10*3/uL Normal 0.0-0.7 [facility] Comment on above: Performed By: #### B MPF, ACBC #### Testing performed at [address] [address] ABSOLUTE NEUTROPHIL COUNT 5.1 10*3/uL Normal 1.4-6.5 [facility] Comment on above: Performed By: #### B MPF, ACBC #### Testing performed at [address] [address] Basophils/100 WBC (Bld) 0.5 % Normal 0.0-2.0 [facility] Comment on above: Performed By: #### B MPF, ACBC #### Testing performed at [address] [address] DTYPE AUTO DI[address] Normal [facility] Comment on above: Performed By: #### B MPF, ACBC #### Testing performed at [address] [address] Eosinophils/100 WBC (Bld) 0.4 % Normal 0.0-11.0 [facility] Comment on above: Performed By: #### B MPF, ACBC #### Testing performed at [address] [address] Lymphocytes (Bld) [#/Vol] 1.0 10*3/uL Low 1.2-3.4 [facility] Comment on above: Performed By: #### B MPF, ACBC #### Testing performed at [address] [address] Lymphocytes/100 WBC (Bld) 15.9 % Low 20.0-55.0 [facility] Comment on above: Performed By: #### B MPF, ACBC #### Testing performed at [address] [address] Monocytes (Bld) [#/Vol] 0.4 10*3/uL Normal 0.0-0.7 [facility] Comment on above: Performed By: #### B MPF, ACBC #### Testing performed at [address] [address] Monocytes/100 WBC (Bld) 6.0 % Normal 0.0-10.0 [facility] Comment on above: Performed By: #### B MPF, ACBC #### Testing performed at [address] [address] Neutrophils/100 WBC (Bld) 77.2 % High 37.0-75.0 [facility] Comment on above: Performed By: #### B MPF, ACBC #### Testing performed at [address] [address] Erythrocyte distribution width (RBC) [Ratio] 14.0 % Normal 11.5-14.5 [facility] Comment on above: Performed By: #### B MPF, ACBC #### Testing performed at [address] [address] Hematocrit (Bld) [Volume fraction] 33.7 % Low 36.0-48.0 [facility] Comment on above: Performed By: #### B MPF, ACBC #### Testing performed at [address] [address] Hemoglobin (Bld) [Mass/Vol] 12.1 g/dL Normal 12.0-16.0 [facility] Comment on above: Performed By: #### B MPF, ACBC #### Testing performed at [address] [address] MCH (RBC) [Entitic mass] 33.1 pg Normal 26.0-35.0 [facility] Comment on above: Performed By: #### B MPF, ACBC #### Testing performed at [address] [address] MCHC (RBC) [Mass/Vol] 36.0 g/dL Normal 27.0-37.0 [facility] Comment on above: Performed By: #### B MPF, ACBC #### Testing performed at [address] [address] MCV (RBC) [Entitic vol] 92.0 fL Normal 80.0-100.0 [facility] Comment on above: Performed By: #### B MPF, ACBC #### Testing performed at [address] [address] Platelet mean volume (Bld) [Entitic vol] 7.6 fL Normal 7.4-11.0 [facility] Comment on above: Performed By: #### B MPF, ACBC #### Testing performed at [address] [address] Platelets (Bld) [#/Vol] 256 10*3/uL Normal 130-400 [facility] Comment on above: Performed By: #### B MPF, ACBC #### Testing performed at [address] [address] RBC (Bld) [#/Vol] 3.66 10*6/uL Low 4.0-5.4 [facility] Comment on above: Performed By: #### B MPF, ACBC #### Testing performed at [address] [address] WBC (Bld) [#/Vol] 6.6 10*3/uL Normal 3.6-11.0 [facility] Comment on above: Performed By: #### B MPF, ACBC #### Testing performed at [address] [address] CBC, EDIF, PLATELETon 2024 ABSOLUTE BASOPHIL COUNT 0 10*3/uL 0.0 - 0.2 10*3/uL [facility] Basophils/100 WBC (Bld) 0.5 % 0.0 - 2.0 % [facility] Differential cell count method Nom (Bld) AUTO DIFF % [facility] Eosinophils (Bld) [#/Vol] 0 10*3/uL 0.0 - 0.7 10*3/uL [facility] Eosinophils/100 WBC (Bld) 0.4 % 0.0 - 11.0 % [facility] Erythrocyte distribution width (RBC) [Ratio] 14 % 11.5 - 14.5 % [facility] Hematocrit (Bld) [Volume fraction] 33.7 % Low 36.0 - 48.0 % [facility] Hemoglobin (Bld) [Mass/Vol] 12.1 g/dL [facility] Interpretation and review of laboratory results Abnormal [facility] Lymphocytes (Bld) [#/Vol] 1 10*3/uL Low 1.2 - 3.4 10*3/uL [facility] Lymphocytes/100 WBC (Bld) 15.9 % Low 20.0 - 55.0 % [facility] MCH (RBC) [Entitic mass] 33.1 pg 26.0 - 35.0 PG [facility] MCHC (RBC) [Mass/Vol] 36 g/dL [facility] MCV (RBC) [Entitic vol] 92 fL [facility] Monocytes (Bld) [#/Vol] 0.4 10*3/uL 0.0 - 0.7 10*3/uL [facility] Monocytes/100 WBC (Bld) 6 % 0.0 - 10.0 % [facility] Neutrophils (Bld) [#/Vol] 5.1 10*3/uL 1.4 - 6.5 10*3/uL [facility] Neutrophils/100 WBC (Bld) 77.2 % High 37.0 - 75.0 % [facility] Platelet mean volume (Bld) [Entitic vol] 7.6 fL [facility] Platelets (Bld) [#/Vol] 256 10*3/uL 130 - 400 10*3/uL [facility] RBC (Bld) [#/Vol] 3.66 10*6/uL Low 4.0 - 5.4 10*6/uL [facility] WBC (Bld) [#/Vol] 6.6 10*3/uL 3.6 - 11.0 10*3/uL [facility] TSHon 09-08-2024 TSH Qn 0.857 m[IU]/L [facility] TSH 0.857 uIU/ML Normal 0.465-4.680 [facility] Comment on above: Performed By: #### T SH2 #### Testing performed at [address] [address] URINALYSIS, MACROon 09-09-19 25 Bilirubin Ql (U) Negative NEGATIVE [facility] Clarity (U) CLEAR CLEAR [facility] Color (U) YELLOW YELLOW [facility] Glucose Test strip (U) [Mass/Vol] Negative NEGATIVE mg/dl [facility] Hemoglobin Ql (U) Negative NEGATIVE [facility] Ketones (U) [Mass/Vol] Negative NEGATIVE mg/dl [facility] Leukocyte esterase Test strip Ql (U) Negative NEGATIVE [facility] Nitrite Ql (U) Negative NEGATIVE [facility] pH (U) 6.5 [pH] 5.0 - 7.0 [facility] Protein Ql (U) Negative NEGATIVE mg/dl [facility] Specific gravity (U) [Rel density] 1.02 1.010 - 1.025 [facility] Urobilinogen (U) [Mass/Vol] 0.2 mg/dL [facility] URINE MACROSCOPICon 09-09-19 25 Bilirubin Ql (U) Negative Normal NEGATIVE [facility] Comment on above: Performed By: #### U MAC #### Testing performed at [address] [place] [address] Clarity (U) CLEAR Normal CLEAR [facility] Comment on above: Performed By: #### U MAC #### Testing performed at [address] [address] Color (U) YELLOW Normal YELLOW [facility] Comment on above: Performed By: #### U MAC #### Testing performed at [address] [address] Glucose Ql (U) Negative Normal NEGATIVE [facility] Comment on above: Performed By: #### U MAC #### Testing performed at [address] [address] pH (U) 6.5 [pH] Normal 5.0-7.0 [facility] Comment on above: Performed By: #### U MAC #### Testing performed at [address] [address] URINE HEMOGLOBIN Negative Normal NEGATIVE [facility] Comment on above: Performed By: #### U MAC #### Testing performed at [address] [place] [address] URINE KETONE Negative Normal NEGATIVE [facility] Comment on above: Performed By: #### U MAC #### Testing performed at [address] [address] URINE LEUKOTEST Negative Normal NEGATIVE [facility] Comment on above: Performed By: #### U MAC #### Testing performed at [address] [address] URINE NITRATES Negative Normal NEGATIVE [facility] Comment on above: Performed By: #### U MAC #### Testing performed at [address] [address] URINE SPEC GRAVITY 1.020 Normal 1.010-1.025 [facility] Comment on above: Performed By: #### U MAC #### Testing performed at [address] [address] URINE TOTAL PROTEIN Negative Normal NEGATIVE [facility] Comment on above: Performed By: #### U MAC #### Testing performed at [address] [place] [address] Urobilinogen Qn (U) 0.2 {Alcon'U}/dL Normal 0.2-1.0 [facility] Comment on above: Performed By: #### U MAC #### Testing performed at [address] [place] [address] OB ultrasound panelon 2024 OBSTETRICS REPORT (Signed Final 09/01/2024 01:42 pm) PATIENT INFO: ID #: [id number] : [birth year] (19 yrs)(F) Name: ETHAN HERNANDEZ Visit Date: 09/01/2024 01:29 pm MEANS PERFORMED BY: Performed By: CATHERINE Martinez, RDMS, RVT Attending: Loyd Prado MD Referred By: Jana Sanchez MD Ref. 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 RADIOLOGY System, Provider Not In - 09/01/2024 OBSTETRICS REPORT (Signed Final 09/01/2024 01:42 pm) PATIENT INFO: ID #: [id number] : [birth year] (19 yrs)(F) Name: ETHAN HERNANDEZ Visit Date: 09/01/2024 01:29 pm MEANS PERFORMED BY: Performed By: CATHERINE Martinez, RDMS, RVT Attending: Loyd Prado MD Referred By: Jana Sanchez MD Ref. 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 I, Phi (more content not included)... [facility] Radiology Study observation (narrative) [facility] OB ultrasound panelOrdered B y: Provider System on 09-01-2024 [facility] ABO/RH(D)on 07-08-2024 ABO/RH(D) ABO/RH(D) O POSITIVE Testing performed at [place] [address] Normal [facility] Comment on above: Performed By: #### A BRH #### [place] [address] ANTIBODY SCREENon 07-08-2024 Antibody screen ANTIBODY SCREEN NEGA TIVE WORKUP EXPIRES 07/10/2024,2359 Testing performed at [address] Comment on above: Performed By: #### R ESCRN #### [place] [address] FAX REQUESTon 07-07-2024 FAX TO [facility] Comment on above: Result Comment: Test ing performed at [place] [address] Performed By: #### F X #### [place] [address] HCG ( test) Ql (U)o n 05-26-2024 [facility] POCT INFLUENZA, A Bon 2024 FLUAV RNA GISSELLE+probe Ql (Unsp spec) Negative Negative, Not Tested, Invalid, Not Detected [facility] FLUBV RNA GISSELLE+probe Ql (Unsp spec) Negative Negative, Not Tested, Invalid, Not Detected [facility] Interpretation and review of laboratory results Normal [facility] POCT URINE PREGNANCYon 05-26 HCG ( test) Ql (U) Positive [facility] SARS-COV-2 RAPID AG (WIC)on 05-26-2024 SARS-CoV-2 (COVID-19) RNA GISSELLE+probe Ql (Unsp spec) Not detected Normal NOT DETECTED [facility] Comment on above: Result Comment: Nega tive [...] #### C COVAG #### Testing performed at [facility] [address] [place] [address] NARRATIVE This test was perfor med using lateral flow immunoassay. This test does not differentiate between SARS-CoV and SARS-CoV2. Normal [facility] Comment on above: Performed By: #### C COVAG #### Testing performed at [facility] [address] [place] [address] SARS-COV-2 RAPID ANTIGEN (CL INIC ONLY)on 05-26-2024 SARS-CoV-2 (COVID-19) RNA GISSELLE+probe Ql (Unsp spec) This test was performed using lateral flow immunoassay. This test does not differentiate between SARS-CoV and SARS-CoV2. [facility] SARS-CoV-2 (COVID-19) RNA NA A+probe Ql (Unsp spec)on 05-26-2024 SARS-CoV-2 (COVID-19) Ag IA.rapid Ql (Resp) Not detected NOT DETECTED [facility] Comment on above: Negative results sita [...] clinical signs and symptoms consistent with COVID-19. [facility] QUANTIFERON TB GOLD PLUS 1 T UBEon 05-20-2024 QUANTIFERNON INCUBATION Incubation performed. Normal [facility] Comment on above: Performed By: #### L BRITTANY ELLIOTT, JANETH #### Testing performed at [facility] [address] [place] [address] [place] [address] QUANTIFERON-TB GOLD PLUS Negative Normal [facility] Comment on above: Result Comment: Refe rence range: Negative (NOTE) No response to M tuberculosis antigens detected. Infection with M tuberculosis is unlikely, but high risk individuals should be considered for additional testing (ATS/IDSA/CDC Clinical Practice Guidelines, 2017). The reference range is an Antigen minus Nil result of <0.35 IU/mL. Chemiluminescence immunoassay methodology PERFORMED AT [facility] Performed By: #### L QFIT, LMMR, ZQFIT #### Testing performed at [address] [address] RFLX QUANTIFERON-TB GOLD PLU Son 05-20-2024 QUANTIFERON CRITERIA Comment [facility] Comment on above: Result Comment: (NOT E) [...] QFIT, LMMR, ZQFIT #### [place] [address] QUANTIFERON MITOGEN VALUE >10.00 [facility] Comment on above: Result Comment: Unit : IU/mL PERFORMED AT [facility] Performed By: #### L QFIT, LMMR, ZQFIT #### Testing performed at [address] [address] QUANTIFERON NIL VALUE 0.02 [facility] Comment on above: Result Comment: Unit : IU/mL Performed By: #### L QFIT, LMMR, ZQFIT #### Testing performed at [address] [address] QUANTIFERON TB1 AG VALUE 0.01 [facility] Comment on above: Result Comment: Unit : IU/mL Performed By: #### L QFIT, LMMR, ZQFIT #### Testing performed at [address] [address] QUANTIFERON TB2 AG VALUE 0.03 [facility] Comment on above: Result Comment: Unit : IU/mL Performed By: #### L QFIT, LMMR, ZQFIT #### Testing performed at [address] [address] MEASLES,MUMP,RUBELLAon 05-19 MUMPS ABS, IGG 80.5 Normal [facility] Comment on above: Result Comment: Refe rence range: Immune >10.9 Unit: AU/mL (NOTE) Negative <9.0 Equivocal 9.0 - 10.9 Positive >10.9 A positive result generally indicates past exposure to Mumps virus or previous vaccination. PERFORMED AT [facility] Performed By: #### L QFIT, LMMR, ZQFIT #### Testing performed at [facility] [address] [place], [place] [address] [place] [address] [place] [address] RUBELLA AB, IGG 6.89 Normal [facility] Comment on above: Result Comment: Refe rence range: Immune >0.99 Unit: index (NOTE) Non-immune <0.90 Equivocal 0.90 - 0.99 Immune >0.99 Performed By: #### L QFIT, LMMR, ZQFIT #### Testing performed at [facility] [address] [place] [address] [place] [address] RUBEOLA AB, IGG >300.0 Normal [facility] Comment on above: Result Comment: Refe rence range: Immune >16.4 Unit: AU/mL (NOTE) Negative <13.5 Equivocal 13.5 - 16.4 Positive >16.4 Presence of antibodies to Rubeola is presumptive evidence of immunity except when acute infection is suspected. Performed By: #### L QFIT, LMMR, ZQFIT #### Testing performed at [facility] [address] [place] [address] [place] [address] HEP B SURFACE [facility] HEP B SURFACE AB Indeterminate Abnormal NEGATIVE [facility] Comment on above: Result Comment: Clinical Interpretation of Immune Status Negative: patient is considered to be not immune to infection with HBV Intermediate: unable to determine if anti-HBs is present at levels consistent with immunity Positive: anti-HBs detected, patient is considered to be immune to infection with HBV HEP C ABon 05-18-2024 HEP C AB Negative Normal NEGATIVE [facility] POCT INFLUENZA, A Bon 2024 FLUAV RNA GISSELLE+probe Ql (Unsp spec) Negative Negative, Not Tested, Invalid, Not Detected [facility] FLUBV RNA GISSELLE+probe Ql (Unsp spec) Negative Negative, Not Tested, Invalid, Not Detected [facility] Internal controls [place] [facility] SARS-COV-2 RAPID AG (WIC)on 04-19-2024 SARS-CoV-2 (COVID-19) RNA GISSELLE+probe Ql (Unsp spec) Not detected Normal NOT DETECTED [facility] Comment on above: Result Comment: Nega tive [...] #### C COVAG #### [place] [address] NARRATIVE This test was perfor med using lateral flow immunoassay. This test does not differentiate between SARS-CoV and SARS-CoV2. Normal [facility] Comment on above: Performed By: #### C COVAG #### [place] [address] SARS-COV-2 RAPID ANTIGEN (CL [facility] ONLY)on 04-19-2024 SARS-CoV-2 (COVID-19) RNA GISSELLE+probe Ql (Unsp spec) This test was performed using lateral flow immunoassay. This test does not differentiate between SARS-CoV and SARS-CoV2. [facility] SARS-CoV-2 (COVID-19) RNA NA A+probe Ql (Unsp spec)on 04-19-2024 SARS-CoV-2 (COVID-19) Ag IA.rapid Ql (Resp) Not detected NOT DETECTED [facility] Comment on above: Negative results sita [...] clinical signs and symptoms consistent with COVID-19. [facility] Portable XR Chest Viewson IMPRESSION: Nonacute [...] are intact. IMPRESSION IMPRESSION: Nonacute portable chest. [facility] Radiology Study observation (narrative) [facility] Portable XR Chest ViewsOrder ed By: Jeremy Jeronimo on 11-28-2023 [facility] Work Phone: XR CHEST 1 VIEW [...] are intact. IMPRESSION: Nonacute portable chest. Normal [facility] HCG ( test) Ql (U)o n 09-15-2023 [facility] HCG QUALITATIVE, URINEon HCG ( test) Ql (U) Negative NEGATIVE [facility] No Panel Informationon 09-14 Interpretation and review of laboratory results Abnormal [facility] URINALYSIS, MACROon 09-15-19 Bilirubin Ql (U) Negative NEGATIVE [facility] Clarity (U) CLEAR CLEAR [facility] Color (U) YELLOW YELLOW [facility] Glucose Test strip (U) [Mass/Vol] Negative NEGATIVE mg/dl [facility] Hemoglobin Ql (U) LARGE Abnormal NEGATIVE [facility] Ketones (U) [Mass/Vol] Negative NEGATIVE mg/dl [facility] Leukocyte esterase Test strip Ql (U) TRACE Abnormal NEGATIVE [facility] Nitrite Ql (U) Negative NEGATIVE [facility] pH (U) 5.5 [pH] 5.0 - 7.0 [facility] Protein Ql (U) Negative NEGATIVE mg/dl [facility] Specific gravity (U) [Rel density] 1.025 1.010 - 1.025 [facility] Urobilinogen (U) [Mass/Vol] 0.2 mg/dL [facility] URINE MICROSCOPICon 09-15-19 24 Bacteria LM.HPF (Urine sed) [#/Area] TRACE Abnormal NEGATIVE [facility] Casts LM.LPF (Urine sed) [#/Area] NONE NONE /LPF [facility] Crystals LM Nom (Urine sed) NONE NONE [facility] Epithelial cells LM Ql (Urine sed) 1 TO 5 /HPF [facility] Mucus Ql (Urine sed) Negative NEGATIVE [facility] RBC LM.HPF (Urine sed) [#/Area] TOO NUMEROUS TO COUNT Abnormal NEGATIVE /HPF [facility] Urine sediment comments LM Surinder (Urine sed) REFLEX CULTURE PER ESTABLISHED CRITERIA. [facility] WBC LM.HPF (Urine sed) [#/Area] Negative NEGATIVE /HPF [facility] BETA HCG, QUAL, BLOODon 07-03 HCG ( test) Ql Negative [facility] C REACTIVE PROTEINon 024 CRP [Mass/Vol] 5.2 mg/L 0 - 10 MG/L [facility] CBC, EDIF, PLATELETon 2023 ABSOLUTE BASOPHIL COUNT 0.0 10*3/uL 0.0 - 0.2 10*3/uL [facility] Basophils/100 WBC (Bld) 0.9 % 0.0 - 2.0 % [facility] Differential cell count method Nom (Bld) AUTO DIFF % [facility] Eosinophils (Bld) [#/Vol] 0.0 10*3/uL 0.0 - 0.7 10*3/uL [facility] Eosinophils/100 WBC (Bld) 1.0 % 0.0 - 11.0 % [facility] Erythrocyte distribution width (RBC) [Ratio] 13.2 % 11.5 - 14.5 % [facility] Hematocrit (Bld) [Volume fraction] 35.5 % Low 36.0 - 48.0 % [facility] Hemoglobin (Bld) [Mass/Vol] 12.2 g/dL [facility] Interpretation and review of laboratory results Abnormal [facility] Lymphocytes (Bld) [#/Vol] 1.1 10*3/uL Low 1.2 - 3.4 10*3/uL [facility] Lymphocytes/100 WBC (Bld) 30.0 % 20.0 - 55.0 % [facility] MCH (RBC) [Entitic mass] 31.0 pg 26.0 - 35.0 PG [facility] MCHC (RBC) [Mass/Vol] 34.4 g/dL [facility] MCV (RBC) [Entitic vol] 90.1 fL [facility] Monocytes (Bld) [#/Vol] 0.2 10*3/uL 0.0 - 0.7 10*3/uL [facility] Monocytes/100 WBC (Bld) 6.7 % 0.0 - 10.0 % [facility] Neutrophils (Bld) [#/Vol] 2.3 10*3/uL 1.4 - 6.5 10*3/uL [facility] Neutrophils/100 WBC (Bld) 61.4 % 37.0 - 75.0 % [facility] Platelet mean volume (Bld) [Entitic vol] 7.0 fL Low [facility] Platelets (Bld) [#/Vol] 249 10*3/uL 130 - 400 10*3/uL [facility] RBC (Bld) [#/Vol] 3.94 10*6/uL Low 4.0 - 5.4 10*6/uL [facility] WBC (Bld) [#/Vol] 3.7 10*3/uL 3.6 - 11.0 10*3/uL [facility] COMPREHENSIVE METABOLIC PANE Jaron 07-23-2023 Albumin [Mass/Vol] 4.3 G/dl 3.5 - 5.0 G/dl [facility] Albumin/Globulin [Mass ratio] 1.7 {ratio} RATIO [facility] ALP [Catalytic activity/Vol] 79 U/L [facility] ALT [Catalytic activity/Vol] 57 U/L High NINF [facility] AST [Catalytic activity/Vol] 66 U/L High [facility] Bilirubin [Mass/Vol] 0.6 mg/dL [facility] Calcium [Mass/Vol] 9.1 mg/dL [facility] Chloride [Moles/Vol] 108 mmol/L High [facility] Comment on above: Please note: Triglyc eride levels of 600mg/dL or higher may positively bias chloride results by approximately 2.1 mmol CO2 [Moles/Vol] 23 mmol/L [facility] Creatinine [Mass/Vol] 0.66 mg/dL Low [facility] GFR COMMENT Average GFR for 20-2 9 years old = 116. [facility] Comment on above: Chronic Kidney disea se, GFR = <60. Kidney failure, GFR = <15. The GFR estimate is not adjusted for extreme body surface area or acute process, nor has it been validated for women or ethnic groups other than and . GFR/1.73 sq M.predicted among blacks MDRD (S/P/Bld) [Vol rate/Area] 145 mL/min/{1.73_m2} ml/min/1.73sq. m [facility] GFR/1.73 sq M.predicted among non-blacks MDRD (S/P/Bld) [Vol rate/Area] 120 mL/min/{1.73_m2} ml/min/1.73sq. m [facility] Glucose post fast [Mass/Vol] 94 mg/dL [facility] Comment on above: NORMAL <100 mg/dL PREDIABETES 101-126 mg/dL DIABETES 126 mg/dL or higher Interpretation and review of laboratory results Abnormal [facility] Potassium [Moles/Vol] 4.2 mmol/L [facility] Protein [Mass/Vol] 6.9 g/dL [facility] Sodium [Moles/Vol] 138 mmol/L [facility] Urea nitrogen [Mass/Vol] 14 mg/dL [facility] CT Abdomen and Pelvis WO con [...] other acute appearing intra-abdominal or pelvic finding. [facility] Radiology Study observation (narrative) [facility] CT Abdomen and Pelvis WO con trastOrdered By: Hilda Palmer on 07-23-2023 [facility] HCG ( test) Qlon [facility] LACTATE, BLOODon 07-23-2023 Lactate [Moles/Vol] 0.8 mmol/L 0.7 - 2. 0 mmol/L [facility] LIPASEon 07-23-2023 Lipase [Catalytic activity/Vol] 50 U/L 23 - 300 U/L [facility] No Panel Informationon 07-22 Interpretation and review of laboratory results Abnormal [facility] URINALYSIS, MACROon 07-23-19 Bilirubin Ql (U) Negative NEGATIVE [facility] Clarity (U) CLEAR CLEAR [facility] Color (U) YELLOW YELLOW [facility] Glucose Test strip (U) [Mass/Vol] Negative NEGATIVE mg/dl [facility] Hemoglobin Ql (U) TRACE-INTACT Abnormal NEGATIVE [facility] Ketones (U) [Mass/Vol] Negative NEGATIVE mg/dl [facility] Leukocyte esterase Test strip Ql (U) TRACE Abnormal NEGATIVE [facility] Nitrite Ql (U) Negative NEGATIVE [facility] pH (U) 8.5 [pH] High 5.0 - 7.0 [facility] Protein Ql (U) Negative NEGATIVE mg/dl [facility] Specific gravity (U) [Rel density] 1.020 1.010 - 1.025 [facility] Urobilinogen (U) [Mass/Vol] 1.0 mg/dL [facility] URINE MICROSCOPICon 07-23-19 24 Bacteria LM.HPF (Urine sed) [#/Area] TRACE Abnormal NEGATIVE [facility] Casts LM.LPF (Urine sed) [#/Area] NONE NONE /LPF [facility] Crystals LM Nom (Urine sed) OCCASIONAL Abnormal NONE [facility] Comment on above: AMORPHOUS URATES Epithelial cells LM Ql (Urine sed) 20 TO 30 /HPF [facility] Mucus Ql (Urine sed) Negative NEGATIVE [facility] RBC LM.HPF (Urine sed) [#/Area] 1 TO 5 NEGATIVE /HPF [facility] Urine sediment comments LM Surinder (Urine sed) POSSIBLY CONTAMINATED SPECIMEN, CULTURE MUST BE ORDERED SEPARATELY IF DEEMED NECESSARY. [facility] WBC LM.HPF (Urine sed) [#/Area] 1 TO 5 NEGATIVE /HPF [facility] HCG ( test) Ql (U)o n 07-19-2023 HCG.beta subunit [Moles/Vol] Negative [facility] Comment on above: Lot #[id number], EXP 2024-12-25, internal control ok [facility] REPEAT ABO/RH (D) TYPINGon 0 07-19-2023 ABO and Rh group Nom (Bld ) Positive [facility] CBC, EDIF, PLATELETon 2023 ABSOLUTE BASOPHIL COUNT 0.0 10*3/uL 0.0 - 0.2 10*3/uL [facility] Basophils/100 WBC (Bld) 0.7 % 0.0 - 2.0 % [facility] Differential cell count method Nom (Bld) AUTO DIFF % [facility] Eosinophils (Bld) [#/Vol] 0.0 10*3/uL 0.0 - 0.7 10*3/uL [facility] Eosinophils/100 WBC (Bld) 0.9 % 0.0 - 11.0 % [facility] Erythrocyte distribution width (RBC) [Ratio] 14.7 % High 11.5 - 14.5 % [facility] Hematocrit (Bld) [Volume fraction] 39.0 % 36.0 - 48.0 % [facility] Hemoglobin (Bld) [Mass/Vol] 13.5 g/dL [facility] Interpretation and review of laboratory results Abnormal [facility] Lymphocytes (Bld) [#/Vol] 1.1 10*3/uL Low 1.2 - 3.4 10*3/uL [facility] Lymphocytes/100 WBC (Bld) 21.0 % 20.0 - 55.0 % [facility] MCH (RBC) [Entitic mass] 31.9 pg 26.0 - 35.0 PG [facility] MCHC (RBC) [Mass/Vol] 34.7 g/dL [facility] MCV (RBC) [Entitic vol] 91.9 fL [facility] Monocytes (Bld) [#/Vol] 0.4 10*3/uL 0.0 - 0.7 10*3/uL [facility] Monocytes/100 WBC (Bld) 7.7 % 0.0 - 10.0 % [facility] Neutrophils (Bld) [#/Vol] 3.7 10*3/uL 1.4 - 6.5 10*3/uL [facility] Neutrophils/100 WBC (Bld) 69.7 % 37.0 - 75.0 % [facility] Platelet mean volume (Bld) [Entitic vol] 7.1 fL Low [facility] Platelets (Bld) [#/Vol] 258 10*3/uL 130 - 400 10*3/uL [facility] RBC (Bld) [#/Vol] 4.25 10*6/uL 4.0 - 5.4 10*6/uL [facility] WBC (Bld) [#/Vol] 5.4 10*3/uL 3.6 - 11.0 10*3/uL [facility] CHEM 7 (LYTES,BUN,CREA,GLUC) on 04-04-2023 Chloride [Moles/Vol] 107 mmol/L [facility] Comment on above: Please note: Triglyc eride levels of 600mg/dL or higher may positively bias chloride results by approximately 2.1 mmol CO2 [Moles/Vol] 25 mmol/L [facility] Creatinine [Mass/Vol] 0.72 mg/dL [facility] GFR COMMENT Unable to calculate GFR due to inappropriate age/gender/creatinine value. [facility] Glucose post fast [Mass/Vol] 86 mg/dL [facility] Comment on above: NORMAL <100 mg/dL PREDIABETES 101-126 mg/dL DIABETES 126 mg/dL or higher Potassium [Moles/Vol] 4.1 mmol/L [facility] Sodium [Moles/Vol] 137 mmol/L [facility] Urea nitrogen [Mass/Vol] 12 mg/dL [facility] HCG ( test) Ql (U)o n 04-04-2023 [facility] HCG QUALITATIVE, URINEon HCG ( test) Ql (U) Negative NEGATIVE [facility] HEPATIC FUNCTION PANELon Albumin [Mass/Vol] 4.2 g/dL [facility] ALP [Catalytic activity/Vol] 84 U/L [facility] ALT [Catalytic activity/Vol] 18 U/L NINF [facility] AST [Catalytic activity/Vol] 28 U/L [facility] Bilirubin [Mass/Vol] 0.4 mg/dL [facility] Bilirubin.direct [Mass/Vol] 0.1 mg/dL [facility] Protein [Mass/Vol] 6.7 g/dL [facility] LIPASEon 04-04-2023 Lipase [Catalytic activity/Vol] 63 U/L 23 - 300 U/L [facility] No Panel Informationon 04-04 Interpretation and review of laboratory results Abnormal [facility] URINALYSIS, MACROon 04-04-19 24 Bilirubin Ql (U) Negative NEGATIVE [facility] Clarity (U) CLEAR CLEAR [facility] Color (U) YELLOW YELLOW [facility] Glucose Test strip (U) [Mass/Vol] Negative NEGATIVE mg/dl [facility] Hemoglobin Ql (U) MODERATE Abnormal NEGATIVE [facility] Ketones (U) [Mass/Vol] Negative NEGATIVE mg/dl [facility] Leukocyte esterase Test strip Ql (U) Negative NEGATIVE [facility] Nitrite Ql (U) Negative NEGATIVE [facility] pH (U) 7.0 [pH] 5.0 - 7.0 [facility] Protein Ql (U) TRACE Abnormal NEGATIVE mg/dl [facility] Specific gravity (U) [Rel density] 1.020 1.010 - 1.025 [facility] Urobilinogen (U) [Mass/Vol] 0.2 mg/dL [facility] URINE MICROSCOPICon 04-04-19 24 Bacteria LM.HPF (Urine sed) [#/Area] TRACE Abnormal NEGATIVE [facility] Casts LM.LPF (Urine sed) [#/Area] NONE NONE /LPF [facility] Crystals LM Nom (Urine sed) OCCASIONAL Abnormal NONE [facility] Comment on above: CA OXALATE CRYSTALS Epithelial cells LM Ql (Urine sed) 1 TO 5 /HPF [facility] Mucus Ql (Urine sed) TRACE Abnormal NEGATIVE [facility] RBC LM.HPF (Urine sed) [#/Area] 1 TO 5 NEGATIVE /HPF [facility] Urine sediment comments LM Surinder (Urine sed) REFLEX CULTURE PER ESTABLISHED CRITERIA. [facility] WBC LM.HPF (Urine sed) [#/Area] 1 TO 5 NEGATIVE /HPF [facility] US Pelvis transvaginalon IMPRESSION: 1. Normal [...] few normal-appearing follicles in the right ovary. [facility] Radiology Study observation (narrative) [facility] US Pelvis transvaginalOrdere d By: Loyd Domingo on 04-04-2023 [facility] Work Phone: COVID-19/INFLUENZA A,B MOLEC ULARon 11-03-2022 SARS-CoV-2 (COVID-19) Ab IA Ql INFLUENZA A (CEPHEID): Not Detected INFLUENZA B (CEPHEID): Not Detected SARS-COV-2 (CEPHEID): Not Detected This test was performed under the FDA's Emergency Use Authorization (EUA). Testing was performed using the Xpert?? Xpress SARS-CoV-2/Flu/RSV plus RT-PCR CepEnjectid assay on the [employer] Xpress System. This test has not been approved for use in asymptomatic patients and its performance in this patient population has not been evaluated. Negative results do not rule out the presence of SARS-CoV-2/COVID-19. Fact sheets for this EUA can be found at the following links: For Healthcare Providers: https://www.fda.gov/medi a/353723/download For Patients: https://www.fda.gov/medi a/744571/download [facility] Comment on above: Performed By: #### L [id number] #### [facility] [address] [place], [place] [address] Luca Erwin M.D. [id number] US Breast - left limitedon 0 09-13-2022 [...] Benign Recommendation: Clinical correlation/management. Recommendation Laterality: Left [facility] Radiology Study observation (narrative) [facility] US Breast - left limitedOrde red By: Jana Toledo on 09-13-2022 [facility] Work Phone: XR Knee - right [...] IMPRESSION IMPRESSION: Interval medial patellofemoral ligament reconstruction. [facility] Radiology Study observation (narrative) [facility] XR Knee - right 2 ViewsOrder ed By: Nathaniel Cummings on 08-23-2022 [facility] Work Phone: XR OR FLUOROSCOPY TIMEon XR OR FLUOROSCOPY TIME This is an auto finalized result. Please refer to patient chart for further information. further information. further information. [facility] Comment on above: Order Comment: Injur [...] Probable dominant left ovarian follicle. Prior appendectomy. [employer] Workstation ID: [id number] Dictated by: TONY THAO on SatJuly 18, 2022 4:36:06 PM EDT Transcribed by: CARISSA JUNIOR on SatJuly 18, 2022 4:41:25 PM EDT Finalized by: TONY THAO on SatJuly 18, 2022 8:50:23 PM EDT Normal [facility] Comment on above: Order Comment: [...] Tibial fixation hardware with associated susceptibility artifact. [facility] Radiology Study observation (narrative) [facility] MR Knee - right WO contrastO rdered By: Jeremy Lopez on 07-05-2022 [facility] Work Phone: XR Knee - right 3 Viewson IMPRESSION: Status post tibial tubercle osteotomy. No acute osseous abnormality. OLOGY EXAM: XR KNEE RIGHT 3 VIEWS, 06/14/2022 09:24 AM COMPARISON: No prior studies available for comparison. CLINICAL INDICATIONS: knee pain RELEVANT CLINICAL HISTORY: M25.561:Right knee pain, unspecified chronicity Bilateral PA weight bearing on one film, Bilateral Trinity Patella on one film, 30 degree lateral [...] PA weight bearing on one film, Bilateral Trinity Patella on one film, 30 degree lateral [...] tibial tubercle osteotomy. No acute osseous abnormality. [facility] Radiology Study observation (narrative) [facility] XR Knee - right 3 ViewsOrder ed By: Nathaniel Cummings on 06-14-2022 [facility] Work Phone: XR SMALL BOWEL FOLLOW [...] follow-through. Fluoroscopy time is 1.72 minutes. Initial financial institution treasurer view of the abdomen. Twelve fluoroscopic spot [...] bulb and loop. Small bowel follow-through: Initial financial institution treasurer view shows 2 calcifications overlying the mid [...] follow-through. 4. Incidental bilateral punctate renal stones. [employer] Workstation ID: [id number] Dictated by: KATTY WHITNEY on SatMay 24, 2022 12:17:54 PM EDT Transcribed by: VIVIANE MEJIA on SatMay 24, 2022 1:36:57 PM EDT Finalized by: KATTY WHITNEY on SatMay 24, 2022 2:07:40 PM EDT Normal [facility] Comment on above: Order Comment: [...] follow-through. Fluoroscopy time is 1.72 minutes. Initial financial institution treasurer view of the abdomen. Twelve fluoroscopic spot [...] bulb and loop. Small bowel follow-through: Initial financial institution treasurer view shows 2 calcifications overlying the mid [...] follow-through. 4. Incidental bilateral punctate renal stones. [employer] Workstation ID: [id number] Dictated by: KATTY WHITNEY on Beryl May 24, 2022 12:17:54 PM EDT Transcribed by: VIVIANE MEJIA on SatMay 24, 2022 1:36:57 PM EDT Finalized by: KATTY WHITNEY on Beryl May 24, 2022 2:07:40 PM EDT Normal [facility] Comment on above: Order Comment: [...] surgical screw fixation of the anterior tibia. [facility] Radiology Study observation (narrative) [facility] XR Knee - right 3 ViewsOrder ed By: Hilda Palmer on 05-14-2022 [facility] US BREAST BIOPSY LEFTon 04-05 US [...] SatApr 25, 2022 10:45:51 AM EST Normal [facility] Comment on above: Order Comment: Injur [...] SatApr 03, 2022 2:40:45 PM EST Normal [facility] Comment on above: Order Comment: Injur [...] tachycardia, 7 are unassociated any arrhythmia Normal [facility] CBC, EDIF, PLATELETon 2021 ABSOLUTE BASOPHIL COUNT 0.0 10*3/uL 0.0 - 0.2 10*3/uL [facility] Basophils/100 WBC (Bld) 1.0 % 0.0 - 2.0 % [facility] Differential cell count method Nom (Bld) AUTO DIFF % [facility] Eosinophils (Bld) [#/Vol] 0.0 10*3/uL 0.0 - 0.7 10*3/uL [facility] Eosinophils/100 WBC (Bld) 0.8 % 0.0 - 11.0 % [facility] Erythrocyte distribution width (RBC) [Ratio] 13.3 % 11.5 - 14.5 % [facility] Hematocrit (Bld) [Volume fraction] 40.7 % 36.0 - 48.0 % [facility] Hemoglobin (Bld) [Mass/Vol] 13.8 g/dL [facility] Interpretation and review of laboratory results Abnormal [facility] Lymphocytes (Bld) [#/Vol] 1.5 10*3/uL 1.2 - 3.4 10*3/uL [facility] Lymphocytes/100 WBC (Bld) 36.9 % 20.0 - 55.0 % [facility] MCH (RBC) [Entitic mass] 31.7 pg 26.0 - 35.0 PG [facility] MCHC (RBC) [Mass/Vol] 33.8 g/dL [facility] MCV (RBC) [Entitic vol] 93.7 fL [facility] Monocytes (Bld) [#/Vol] 0.3 10*3/uL 0.0 - 0.7 10*3/uL [facility] Monocytes/100 WBC (Bld) 6.7 % 0.0 - 10.0 % [facility] Neutrophils (Bld) [#/Vol] 2.3 10*3/uL 1.4 - 6.5 10*3/uL [facility] Neutrophils/100 WBC (Bld) 54.6 % 37.0 - 75.0 % [facility] Platelet mean volume (Bld) [Entitic vol] 6.7 fL Low [facility] Platelets (Bld) [#/Vol] 280 10*3/uL 130.0 - 400.0 10*3/uL [facility] RBC (Bld) [#/Vol] 4.34 10*6/uL 4.0 - 5.4 10*6/uL [facility] WBC (Bld) [#/Vol] 4.1 10*3/uL 3.6 - 11.0 10*3/uL [facility] CHEM 7 (LYTES,BUN,CREA,GLUC) on 01-04-2022 Chloride [Moles/Vol] 105 mmol/L [facility] CO2 [Moles/Vol] 25 mmol/L [facility] Creatinine [Mass/Vol] 0.71 mg/dL [facility] GFR COMMENT Unable to calculate GFR due to inappropriate age/gender/creatinine value. [facility] Glucose post fast [Mass/Vol] 94 mg/dL [facility] Comment on above: NORMAL <100 mg/dL PREDIABETES 101-126 mg/dL DIABETES 126 mg/dL or higher Potassium [Moles/Vol] 3.6 mmol/L [facility] Sodium [Moles/Vol] 139 mmol/L [facility] Urea nitrogen [Mass/Vol] 9 mg/dL [facility] TROPONIN I, HIGH SENSITIVITY on 01-04-2022 TROPONIN I, HIGH SENSITIVITY <2 0 - 12 pg/mL [facility] Comment on above: Indeterminant: >12 to 100 pg/mL female >20 to 100 pg/mL male Indicative of myocardial injury. Serial sampling is recommended, a change of greater than or equal to 20 pg/mL is indicative of acute coronary syndrome. [facility] TSHon 01-04-2022 TSH Qn 0.616 m[IU]/L [facility] XR Chest PA and Lateralon IMPRESSION: No [...] overall appearance of the chest is unchanged. [facility] Radiology Study observation (narrative) [facility] XR Chest PA and LateralOrder ed By: Calin Delgado on 01-04-2022 [facility] Work Phone: CBC, EDIF, PLATELETon 2021 ABSOLUTE BASOPHIL COUNT 0.0 10*3/uL 0.0 - 0.2 10*3/uL [facility] Basophils/100 WBC (Bld) 0.9 % 0.0 - 2.0 % [facility] Differential cell count method Nom (Bld) AUTO DIFF % [facility] Eosinophils (Bld) [#/Vol] 0.0 10*3/uL 0.0 - 0.7 10*3/uL [facility] Eosinophils/100 WBC (Bld) 0.8 % 0.0 - 11.0 % [facility] Erythrocyte distribution width (RBC) [Ratio] 13.5 % 11.5 - 14.5 % [facility] Hematocrit (Bld) [Volume fraction] 42.4 % 36.0 - 48.0 % [facility] Hemoglobin (Bld) [Mass/Vol] 14.5 g/dL [facility] Interpretation and review of laboratory results Abnormal [facility] Lymphocytes (Bld) [#/Vol] 1.2 10*3/uL 1.2 - 3.4 10*3/uL [facility] Lymphocytes/100 WBC (Bld) 28.5 % 20.0 - 55.0 % [facility] MCH (RBC) [Entitic mass] 32.0 pg 26.0 - 35.0 PG [facility] MCHC (RBC) [Mass/Vol] 34.1 g/dL [facility] MCV (RBC) [Entitic vol] 93.7 fL [facility] Monocytes (Bld) [#/Vol] 0.3 10*3/uL 0.0 - 0.7 10*3/uL [facility] Monocytes/100 WBC (Bld) 6.9 % 0.0 - 10.0 % [facility] Neutrophils (Bld) [#/Vol] 2.7 10*3/uL 1.4 - 6.5 10*3/uL [facility] [facility] Neutrophils/100 WBC (Bld) 62.9 % 37.0 - 75.0 % [facility] Platelet mean volume (Bld) [Entitic vol] 7.2 fL Low [facility] Platelets (Bld) [#/Vol] 280 10*3/uL 130.0 - 400.0 10*3/uL [facility] RBC (Bld) [#/Vol] 4.53 10*6/uL 4.0 - 5.4 10*6/uL [facility] WBC (Bld) [#/Vol] 4.4 10*3/uL 3.6 - 11.0 10*3/uL [facility] CHEM 7 (LYTES,BUN,CREA,GLUC) on 01-03-2022 Chloride [Moles/Vol] 103 mmol/L [facility] CO2 [Moles/Vol] 23 mmol/L [facility] Creatinine [Mass/Vol] 0.74 mg/dL [facility] GFR COMMENT Unable to calculate GFR due to inappropriate age/gender/creatinine value. [facility] Glucose post fast [Mass/Vol] 92 mg/dL [facility] Comment on above: NORMAL <100 mg/dL PREDIABETES 101-126 mg/dL DIABETES 126 mg/dL or higher Potassium [Moles/Vol] 4.0 mmol/L [facility] Sodium [Moles/Vol] 138 mmol/L [facility] Urea nitrogen [Mass/Vol] 14 mg/dL [facility] HCG ( test) Ql (U)o n 01-03-2022 [facility] HCG QUALITATIVE, URINEon HCG ( test) Ql (U) Negative NEGATIVE [facility] HEPATIC FUNCTION PANELon Albumin [Mass/Vol] 4.9 g/dL [facility] ALP [Catalytic activity/Vol] 105 U/L [facility] ALT [Catalytic activity/Vol] 18 U/L [facility] AST [Catalytic activity/Vol] 20 U/L [facility] Bilirubin [Mass/Vol] 0.8 mg/dL [facility] Bilirubin.direct [Mass/Vol] 0.1 mg/dL [facility] Protein [Mass/Vol] 7.8 g/dL [facility] INFLUENZA A AND B, PCRon FLUAV and FLUBV Ag IF Nom (Unsp spec) Negative NEGATIVE [facility] FLUBV Ag IA Ql (Unsp spec) Negative NEGATIVE [facility] Comment on above: TESTING PERFORMED BY GISSEL[employer] [facility] NOVEL CORONAVIRUS LAB 1 - NA SOPHARYNGEALon 01-03-2022 NARRATIVE -1 This test was perfor med using isothermal [employer]ISSELLE and has been approved as Emergency Use Authorization (EUA) for the qualitative detection [id number] nucleic acid. [facility] SARS-CoV-2 (COVID-19) RNA GISSELLE+probe Ql (Unsp spec) Not detected NOT DETECTED [facility] Comment on above: Negative results do [...] patient is critically ill or clinically deteriorating. [facility] No Panel Informationon 01-03 Interpretation and review of laboratory results Abnormal [facility] URINALYSIS, MACROon 01-04-20 22 Bilirubin Ql (U) Negative NEGATIVE [facility] Clarity (U) CLEAR CLEAR [facility] Color (U) YELLOW YELLOW [facility] Glucose Test strip (U) [Mass/Vol] Negative NEGATIVE mg/dl [facility] Hemoglobin Ql (U) TRACE-INTACT Abnormal NEGATIVE [facility] Ketones (U) [Mass/Vol] Negative NEGATIVE mg/dl [facility] Leukocyte esterase Test strip Ql (U) TRACE Abnormal NEGATIVE [facility] Nitrite Ql (U) Negative NEGATIVE [facility] pH (U) 6.5 [pH] 5.0 - 7.0 [facility] Protein Ql (U) Negative NEGATIVE mg/dl [facility] Specific gravity (U) [Rel density] 1.015 1.010 - 1.025 [facility] Urobilinogen (U) [Mass/Vol] 0.2 mg/dL [facility] URINE MICROSCOPICon 01-04-20 22 Bacteria LM.HPF (Urine sed) [#/Area] TRACE Abnormal NEGATIVE [facility] Casts LM.LPF (Urine sed) [#/Area] NONE NONE /LPF [facility] Crystals LM Nom (Urine sed) NONE NONE [facility] Epithelial cells LM Ql (Urine sed) 5 TO 10 /HPF [facility] Mucus Ql (Urine sed) Negative NEGATIVE [facility] RBC LM.HPF (Urine sed) [#/Area] Negative NEGATIVE /HPF [facility] Urine sediment comments LM Surinder (Urine sed) CULTURE CRITERIA NOT MET, NO CULTURE PERFORMED. [facility] WBC LM.HPF (Urine sed) [#/Area] 1 TO 5 NEGATIVE /HPF [facility] POC Urinalysis Dipstick, Aut oon 12-05-2021 Bilirubin Ql (U) Negative Negative [facility] Glucose Ql (U) Negative Normal, Negative mg/dL [facility] Hemoglobin Ql (U) Trace-intact Abnormal Negative [facility] Interpretation and review of laboratory results Abnormal [facility] Ketones Ql (U) Negative Negative mg/dL [facility] Leukocyte esterase Test strip Ql (U) Negative Negative [facility] Nitrite Ql (U) Negative Negative [facility] pH (U) 6.0 [pH] 5 - 7 [facility] Protein Ql (U) Negative Negative mg/dL [facility] Specific gravity (U) [Rel density] 1.030 Abnormal 1.005 - 1.025 [facility] Urobilinogen Qn (U) 0.2 mg/dL <2.0, 0. 2, Normal, Negative, 1.0, 2.0, <1.0 [facility] POCT INFLUENZA, A Bon 2020 FLUAV RNA GISSELLE+probe Ql (Unsp spec) Negative [facility] FLUBV RNA GISSELLE+probe Ql (Unsp spec) Negative [facility] Interpretation and review of laboratory results Normal [facility] Indicator ok [facility] POCT URINALYSIS DIPSTICK AUT OMATED W/O SCOPOrdered By: Milton Leos on 08-08-2020 Amorphous sediment LM Ql (Urine sed) [facility] Appearance (U) cloudy [facility] Bacteria LM Ql (Urine sed) [facility] Bilirubin Ql (U) 1+ [facility] Casts LM.LPF (Urine sed) [#/Area] [facility] Color (U) dark yellow [facility] Crystals LM Nom (Urine sed) [facility] Epithelial cells.squamous LM.HPF (Urine sed) [#/Area] [facility] Flow cytometry specialist review Surinder (Unsp spec) [Interp] [facility] Glucose Auto test strip (U) [Mass/Vol] Negative mg/dL [facility] Interpretation and review of laboratory results Abnormal [facility] Ketones [Mass/Vol] Negative mg/dL [facility] Leukocyte esterase Qn (U) [facility] Leukocyte esterase Test strip Ql (U) 3+ [facility] Nitrite Ql (U) Negative [facility] pH (U) 6.0 [pH] [facility] Protein Ql (U) 2+ mg/dL [facility] RBC LM.HPF (Urine sed) [#/Area] [facility] RBC Ql (U) 3+ [facility] Specific gravity (U) [Rel density] 1.030 [facility] Transitional cells LM Ql (Urine sed) [facility] Urobilinogen Qn (U) 0.2 [facility] WBC LM.HPF (Urine sed) [#/Area] [facility] Basic metabolic 2000 panelOr dered By: Pedro Siddiqui on 06-17-2020 Anion gap [Moles/Vol] 7 mmol/L Low 10 - 20 mmol/L [facility] Calcium [Mass/Vol] 8.7 mg/dL 8.4 - 10. 2 mg/dL [facility] Chloride [Moles/Vol] 108 mmol/L 98 - 10 8 mmol/L [facility] Creatinine [Mass/Vol] 0.83 mg/dL 0.50 - 1.00 [facility] Glucose [Mass/Vol] 87 mg/dL 65 - 99 mg/dL [facility] HCO3 [Moles/Vol] 27 mmol/L 21 - 32 mmol/L [facility] Potassium [Moles/Vol] 3.9 mmol/L 3.5 - 5.1 mmol/L [facility] Sodium [Moles/Vol] 138 mmol/L 135 - 145 mmol/L [facility] Urea nitrogen [Mass/Vol] 5 mg/dL Low 8 - 25 mg/dL [facility] Urea nitrogen/Creatinine [Mass ratio] 6.0 mg/mg Low [facility] The eGFR should be u sed for monitoring renal function only and not for medication dosing. [facility] CBC WITH AUTO DIFFERENTIALOr dered By: Pedro Siddiqui on 06-17-2020 Basophils (Bld) [#/Vol] 0.03 10*3/uL [facility] Basophils/100 WBC (Bld) 0.7 % [facility] Eosinophils (Bld) [#/Vol] 0.07 10*3/uL [facility] Eosinophils/100 WBC (Bld) 1.6 % [facility] Erythrocyte distribution width (RBC) [Entitic vol] 13.2 % 11.6 - 14.8 % [facility] Hematocrit (Bld) [Volume fraction] 37.7 % 36.0 - 46.0 % [facility] Hemoglobin (Bld) [Mass/Vol] 12.8 g/dL 12.0 - 16.0 g/dL [facility] Immature granulocytes (Bld) [#/Vol] 0.00 10*3/uL [facility] Immature granulocytes/100 WBC (Bld) 0.00 % [facility] Comment on above: The IG parameter is the percentage of metamyelocytes, myelocytes and promyelocytes. An immature granulocyte count (IG) of 1% or more suggests the possibility of infection, an IG count of 3% is very likely related to an infection. Lymphocytes (Bld) [#/Vol] 2.07 10*3/uL [facility] Lymphocytes/100 WBC (Bld) 45.9 % [facility] MCH (RBC) [Entitic mass] 29.8 pg 25.0 - 35.0 pg [facility] MCHC (RBC) [Mass/Vol] 34.0 g/dL 31.0 - 37.0 g/dL [facility] MCV (RBC) [Entitic vol] 87.9 fL 78.0 - 102.0 fL [facility] Monocytes (Bld) [#/Vol] 0.36 10*3/uL [facility] Monocytes/100 WBC (Bld) 8.0 % [facility] Neutrophils (Bld) [#/Vol] 1.98 10*3/uL [facility] Neutrophils/100 WBC (Bld) 43.8 % [facility] Platelet mean volume (Bld) [Entitic vol] 9.5 fL 9.4 - 12.4 fL [facility] Platelets (Bld) [#/Vol] 265 10*3/uL [facility] RBC (Bld) [#/Vol] 4.29 10*6/uL [facility] WBC (Bld) [#/Vol] 4.51 10*3/uL [facility] ealt CT Abdomen Pelvis Without Co ntrastOrdered By: Pedro Siddiqui on 06-17-2020 No acute findings to account for patient's symptoms. Mild diffuse colonic stool without bowel obstruction. Bilateral nephrolithiasis without obstructive uropathy. Prior appendectomy. [employer] Workstation ID: [id number] [facility] EXAMINATION: CT ABDO MEN PELVIS WITHOUT CONTRAST [...] wall: Normal. Osseous structures: No destructive lesions. [facility] Interface, Rad In Fu ji Speechq - [...] uropathy. Prior appendectomy. ST/jcw Workstation ID: [id number] [facility] HCG ( test) Ql (U)O rdered By: Pedro Siddiqui on 06-17-2020 Interpretation and review of laboratory results Normal [facility] Hepatic function 2000 panelO rdered By: Pedro Siddiqui on 06-17-2020 Albumin [Mass/Vol] 3.7 g/dL 3.2 - 4.5 g/dL [facility] ALP [Catalytic activity/Vol] 155 U/L High 40 - 140 U/L [facility] ALT [Catalytic activity/Vol] 17 U/L 14 - 65 U/L [facility] AST [Catalytic activity/Vol] 14 U/L 0 - 45 U/L [facility] Bilirubin [Mass/Vol] 0.4 mg/dL 0.0 - 1 .3 mg/dL [facility] Bilirubin.conjugated [Mass/Vol] 0.2 mg/dL 0.0 - 0.4 mg/dL [facility] Protein [Mass/Vol] 6.9 g/dL 6.0 - 8.0 g/dL [facility] LipaseOrdered By: Pedro atkinson on 06-17-2020 Lipase [Catalytic activity/Vol] 66 U/L Low 73 - 393 U/L [facility] No Panel InformationOrdered By: Pedro Siddiqui on 06-17-2020 Interpretation and review of laboratory results Abnormal [facility] URINALYSISOrdered By: Pedro Siddiqui on 06-17-2020 Bacteria Auto Ql (U) Rare Abnormal None Seen /hpf [facility] Clarity Refractometry automated (U) Clear Clear [facility] Color (U) Yellow Colorless, Yellow [facility] Glucose Auto test strip (U) [Mass/Vol] Negative Negative mg/dL [facility] Ketones (U) [Mass/Vol] Negative Negative mg/dL [facility] Leukocyte esterase Auto test strip Ql (U) Negative Negative [facility] pH (U) 7.5 [pH] High [facility] Specific gravity (U) [Rel density] 1.020 [facility] UrinalysisOrdered By: Pedro Siddiqui on 06-17-2020 Bilirubin Ql (U) Negative Negative [facility] Epithelial cells.squamous Auto (Urine sed) [#/Area] 3 [facility] Hemoglobin Auto test strip Ql (U) Small Abnormal Negative [facility] Interpretation and review of laboratory results Abnormal [facility] Nitrite Auto test strip Ql (U) Negative Negative [facility] Protein (U) [Mass/Vol] Negative Negative mg/dL [facility] Urobilinogen (U) [Mass/Vol] mg/dL <2.0 mg/dL [facility] WBC Auto (Urine sed) [#/Area] 2 [facility] Microscopic examinat ion is performed on all urinalysis samples and only positive findings are reported. The test for blood on the chemical analytic portion of urinalysis may also be positive due to hemoglobinuria and myoglobinuria and if red blood cells are present they are quantified by microscopic examination. [facility] Urine PregnancyOrdered By: Tala Siddiqui on 06-17-2020 HCG ( test) Ql (U) Negative Negative [facility] BMPon 05-18-2020 Anion gap [Moles/Vol] 10 mmol/L 10 - 20 mmol/L [facility] Calcium [Mass/Vol] 8.9 mg/dL 8.4 - 10. 2 mg/dL [facility] Chloride [Moles/Vol] 107 mmol/L 98 - 10 8 mmol/L [facility] Creatinine [Mass/Vol] 0.83 mg/dL 0.50 - 1.00 [facility] GFR/1.73 sq M predicted among non-blacks MDRD (S/P/Bld) [Vol rate/Area] The eGFR should be used for monitoring renal function only and not for medication dosing. [facility] Glucose [Mass/Vol] 103 mg/dL High 65 - 99 mg/dL [facility] HCO3 [Moles/Vol] 27 mmol/L 21 - 32 mmol/L [facility] Potassium [Moles/Vol] 3.7 mmol/L 3.5 - 5.1 mmol/L [facility] Sodium [Moles/Vol] 140 mmol/L 135 - 145 mmol/L [facility] Urea nitrogen [Mass/Vol] 15 mg/dL 8 - 25 mg/dL [facility] Urea nitrogen/Creatinine [Mass ratio] 18.1 mg/mg [facility] Hepatic Function Panel (LFT) on 05-18-2020 Albumin [Mass/Vol] 3.7 g/dL 3.2 - 4.5 g/dL [facility] ALP [Catalytic activity/Vol] 153 U/L High 40 - 140 U/L [facility] ALT [Catalytic activity/Vol] 16 U/L 14 - 65 U/L [facility] AST [Catalytic activity/Vol] 15 U/L 0 - 45 U/L [facility] Bilirubin [Mass/Vol] 0.3 mg/dL 0.0 - 1 .3 mg/dL [facility] Bilirubin.conjugated [Mass/Vol] mg/dL 0.0 - 0.4 mg/dL [facility] Protein [Mass/Vol] 7.0 g/dL 6.0 - 8.0 g/dL [facility] Lipaseon 05-18-2020 Interpretation and review of laboratory results Normal [facility] Lipase [Catalytic activity/Vol] 107 U/L 73 - 393 U/L [facility] Otheron 05-18-2020 Interpretation and review of laboratory results Abnormal [facility] TROPONINon 05-18-2020 Troponin I.cardiac [Mass/Vol] ng/mL <=45 ng/L [facility] Troponin I.cardiac [Mass/Vol] Normal [facility] XR Chest 1 Viewon 05-18-2020 Interface, Rad [...] acute cardiopulmonary process identified. Workstation ID: [id number] [facility] EXAMINATION: XR CHES T PA/AP: HISTORY: ORDERING [...] effusion is identified. Osseous structures appear intact. [facility] No acute cardiopulmo nary process identified. Workstation ID: [id number] [facility] CBC WITH AUTO DIFFERENTIALon 05-17-2020 Basophils (Bld) [#/Vol] 0.02 10*3/uL [facility] Basophils/100 WBC (Bld) 0.3 % [facility] Eosinophils (Bld) [#/Vol] 0.07 10*3/uL [facility] Eosinophils/100 WBC (Bld) 1.0 % [facility] Erythrocyte distribution width (RBC) [Entitic vol] 12.8 % 11.6 - 14.8 % [facility] Hematocrit (Bld) [Volume fraction] 36.8 % 36.0 - 46.0 % [facility] Hemoglobin (Bld) [Mass/Vol] 12.6 g/dL 12.0 - 16.0 g/dL [facility] Immature granulocytes (Bld) [#/Vol] 0.02 10*3/uL [facility] Immature granulocytes/100 WBC (Bld) 0.30 % [facility] Comment on above: The IG parameter is the percentage of metamyelocytes, myelocytes and promyelocytes. An immature granulocyte count (IG) of 1% or more suggests the possibility of infection, an IG count of 3% is very likely related to an infection. Interpretation and review of laboratory results Abnormal [facility] Lymphocytes (Bld) [#/Vol] 2.71 10*3/uL [facility] Lymphocytes/100 WBC (Bld) 40.1 % [facility] MCH (RBC) [Entitic mass] 29.7 pg 25.0 - 35.0 pg [facility] MCHC (RBC) [Mass/Vol] 34.2 g/dL 31.0 - 37.0 g/dL [facility] MCV (RBC) [Entitic vol] 86.8 fL 78.0 - 102.0 fL [facility] Monocytes (Bld) [#/Vol] 0.55 10*3/uL [facility] Monocytes/100 WBC (Bld) 8.1 % [facility] Neutrophils (Bld) [#/Vol] 3.39 10*3/uL [facility] Neutrophils/100 WBC (Bld) 50.2 % [facility] Platelet mean volume (Bld) [Entitic vol] 9.3 fL Low 9.4 - 12.4 fL [facility] Platelets (Bld) [#/Vol] 271 10*3/uL [facility] RBC (Bld) [#/Vol] 4.24 10*6/uL [facility] WBC (Bld) [#/Vol] 6.76 10*3/uL [facility] D-DIMER, QUANTITATIVEon 05-02 Fibrin D-dimer FEU (PPP) [Mass/Vol] 0.37 0.27 - 0.49 mcg/mL FEU [facility] Interpretation and review of laboratory results Normal [facility] This normal referenc e range has been [...] on the results of the D-dimer alone. [facility] ECG 12-LEADon 05-17-2020 Richar Hurtado MD 05/18/2020 12:40 AM EKG 12-lead Date/Time: 05/17/2020 11:38 PM Performed by: Richar Hurtado MD Authorized by: Richar Hurtado MD BPM: 51 Comments: Sinus bradycardia, otherwise normal EKG. [facility] POCT URINALYSIS DIPSTICK AUT OMATED W/O SCOPon 03-15-2020 Amorphous sediment LM Ql (Urine sed) [facility] Appearance (U) [facility] Bacteria LM Ql (Urine sed) [facility] Bilirubin Ql (U) 1+ [facility] Casts LM.LPF (Urine sed) [#/Area] [facility] Color (U) [facility] Crystals LM Nom (Urine sed) [facility] Epithelial cells.squamous LM.HPF (Urine sed) [#/Area] [facility] Flow cytometry specialist review Surinder (Unsp spec) [Interp] [facility] Glucose Auto test strip (U) [Mass/Vol] Negative mg/dL [facility] Interpretation and review of laboratory results Abnormal [facility] Ketones [Mass/Vol] 1+ mg/dL [facility] Leukocyte esterase Qn (U) [facility] Leukocyte esterase Test strip Ql (U) Negative [facility] Nitrite Ql (U) Negative [facility] pH (U) 6.0 [pH] [facility] Protein Ql (U) 2+ mg/dL [facility] RBC LM.HPF (Urine sed) [#/Area] [facility] RBC Ql (U) 2+ [facility] Specific gravity (U) [Rel density] 1.025 [facility] Transitional cells LM Ql (Urine sed) [facility] Urobilinogen Qn (U) 0.2 [facility] WBC LM.HPF (Urine sed) [#/Area] [facility] POCT URINALYSIS DIPSTICK AUT OMATED W/O SCOPon 02-15-2020 Amorphous sediment LM Ql (Urine sed) [facility] Appearance (U) [facility] Bacteria LM Ql (Urine sed) [facility] Bilirubin Ql (U) 1+ [facility] Casts LM.LPF (Urine sed) [#/Area] [facility] Color (U) [facility] Crystals LM Nom (Urine sed) [facility] Epithelial cells.squamous LM.HPF (Urine sed) [#/Area] [facility] Flow cytometry specialist review Surinder (Unsp spec) [Interp] [facility] Glucose Auto test strip (U) [Mass/Vol] Negative mg/dL [facility] Interpretation and review of laboratory results Abnormal [facility] Ketones [Mass/Vol] 2+ mg/dL [facility] Leukocyte esterase Qn (U) [facility] Leukocyte esterase Test strip Ql (U) Negative [facility] Nitrite Ql (U) Negative [facility] pH (U) 6.0 [pH] [facility] Protein Ql (U) 2+ mg/dL [facility] RBC LM.HPF (Urine sed) [#/Area] [facility] RBC Ql (U) 2+ [facility] Specific gravity (U) [Rel density] >=1.030 [facility] Transitional cells LM Ql (Urine sed) [facility] Urobilinogen Qn (U) 0.2 [facility] WBC LM.HPF (Urine sed) [#/Area] [facility] POCT URINALYSIS DIPSTICK AUT OMATED W/O SCOPon 02-03-2020 Amorphous sediment LM Ql (Urine sed) [facility] Appearance (U) Cloudy [facility] Bacteria LM Ql (Urine sed) [facility] Bilirubin Ql (U) 3+ [facility] Casts LM.LPF (Urine sed) [#/Area] [facility] Color (U) Red [facility] Crystals LM Nom (Urine sed) [facility] Epithelial cells.squamous LM.HPF (Urine sed) [#/Area] [facility] Flow cytometry specialist review Surinder (Unsp spec) [Interp] [facility] Glucose Auto test strip (U) [Mass/Vol] Negative mg/dL [facility] Interpretation and review of laboratory results Abnormal [facility] Ketones [Mass/Vol] 1+ mg/dL [facility] Leukocyte esterase Qn (U) [facility] Leukocyte esterase Test strip Ql (U) 3+ [facility] Nitrite Ql (U) Positive [facility] pH (U) 6.0 [pH] [facility] Protein Ql (U) 3+ mg/dL [facility] RBC LM.HPF (Urine sed) [#/Area] [facility] RBC Ql (U) 3+ [facility] Specific gravity (U) [Rel density] 1.025 [facility] Transitional cells LM Ql (Urine sed) [facility] Urobilinogen Qn (U) 4.0 Abnormal [facility] WBC LM.HPF (Urine sed) [#/Area] [facility] DE VISUAL SCREENING TEST, BI LATon 12-17-2019 Milton Leos MD 12/17/2019 10:21 AM DE VISUAL SCREENING TEST, BILAT Performed by: Milton Leos MD Authorized by: Milton Leos MD [place] Protocol Immediately prior to procedure a time out was called to verify the correct patient, procedure, equipment, direct support staff member and site/side marked as required. Additional Notes Vision normal, see screenings tab [facility] POC , Urineon 10-13 HCG ( test) Ql (U) Negative Negative [facility] Internal Control Pass [facility] XR OR Knee Right 1-2 Viewson 10-14-2019 1. Intraoperative fluoroscopy. See operative report for procedure description. 2. Sharir mGy: Fluoro dose in Ka,r mGy: 32.53 Workstation ID: [id number] [facility] EXAMINATION: XR OR K NEE RIGHT 1-2 [...] are acquired during tibial osteotomy in progress. [facility] Interface, Rad In Fu ji Speechq - [...] in Shari,r mGy: 32.53 Workstation ID: [id number] [facility] COVID-19, MOLECULARon 2019 SARS-COV-2 RNA (DOUG) Not Detected Normal Not Detected [facility] Comment on above: Result Comment: This test [...] at the following links: For Healthcare Providers: https://www.fda.gov/media/916063/download For Patients: https://www.fda.gov/media/224325/download Performed By: #### L [id number] #### [facility] [address] [place] [address] Dhiraj Ojeda M.D. [id number] POCT URINALYSIS DIPSTICK AUT OMATED W/O SCOPon 06-11-2019 Amorphous sediment LM Ql (Urine sed) [facility] Appearance (Body fld) clear [facility] Bacteria LM Ql (Urine sed) [facility] Bilirubin Ql (U) Negative [facility] Casts LM.LPF (Urine sed) [#/Area] [facility] Color (U) yellow [facility] Crystals LM Nom (Urine sed) [facility] Epithelial cells.squamous LM.HPF (Urine sed) [#/Area] [employer] Flow cytometry specialist review Surinder (Unsp spec) [Interp] [facility] Interpretation and review of laboratory results Abnormal [facility] Ketones [Mass/Vol] Negative mg/dL [facility] Leukocyte esterase Qn (U) [facility] Leukocyte esterase Test strip Ql (U) trace [facility] Nitrite Ql (U) Negative [facility] pH (U) 6.0 [pH] [facility] POCT GLUCOSE, URINE Negative mg/dL [facility] Protein Ql (U) 1+ mg/dL [facility] RBC LM.HPF (Urine sed) [#/Area] [facility] RBC Ql (U) trace-intact [facility] Specific gravity (U) [Rel density] 1.025 [facility] Transitional cells LM Ql (Urine sed) [facility] Urobilinogen (U) [Mass/Vol] 0.2 [facility] WBC LM.HPF (Urine sed) [#/Area] [facility] Otheron 05-19-2019 Interpretation and review of laboratory results Abnormal [facility] POC Basic Metabolic Panelon 05-19-2019 Calcium.ionized (Bld) [Mass/Vol] 4.6 mg/dL 4.5 - 5.3 mg/dL [facility] Chloride [Moles/Vol] 105 mmol/L 98 - 10 8 mmol/L [facility] CO2 [Moles/Vol] 23 mmol/L 21 - 32 mmol/L [facility] ealt Creatinine [Mass/Vol] 0.54 mg/dL 0.50 - 1.00 [facility] Glucose [Mass/Vol] 107 mg/dL High 65 - 99 mg/dL [facility] Potassium [Moles/Vol] 4.2 mmol/L 3.5 - 5.1 mmol/L [facility] Sodium [Moles/Vol] 138 mmol/L 135 - 145 mmol/L [facility] Urea nitrogen [Mass/Vol] 14 mg/dL 8 - 25 mg/dL [facility] POC CBC and Differentialon 0 05-19-2019 Erythrocyte distribution width (RBC) [Entitic vol] 13.1 % 11.6 - 14.8 % [facility] Hematocrit (Bld) [Volume fraction] 41.5 % 36 - 46 % [facility] Hemoglobin (Bld) [Mass/Vol] 14.6 g/dL 12 - 16 g/dL [facility] Interpretation and review of laboratory results Abnormal [facility] Lymphocytes (Bld) [#/Vol] 0.5 10*3/uL Low [facility] Lymphocytes/100 WBC (Bld) 5.0 % [facility] MCH (RBC) [Entitic mass] 31.3 pg 25 - 35 pg [facility] MCHC (RBC) [Mass/Vol] 35.2 g/dL 31 - 37 g/dL [facility] MCV (RBC) [Entitic vol] 89.1 fL 78 - 102 fL [facility] Mixed 3.6 % [facility] Mixed Abs 0.3 K/mcl [facility] Neutrophil Abs 8.4 High [facility] Neutrophils/100 WBC (Bld) 91.4 % [facility] Platelet mean volume (Bld) [Entitic vol] 9.5 fL 9 - 15.5 fL [facility] Platelets (Bld) [#/Vol] 309 10*3/uL [facility] RBC (Bld) [#/Vol] 4.66 10*6/uL [facility] WBC (Bld) [#/Vol] 9.20 10*3/uL [facility] POC Liver Panel Pluson 05-18 Albumin [Mass/Vol] 3.7 g/dL 3.2 - 4.5 g/dL [facility] ALP [Catalytic activity/Vol] 99 U/L Low 110 - 630 U/L [facility] ALT [Catalytic activity/Vol] 19 U/L 0 - 40 U/L [facility] Amylase [Catalytic activity/Vol] 56 U/L 25 - 115 U/L [facility] AST [Catalytic activity/Vol] 28 U/L 0 - 45 U/L [facility] Bilirubin [Mass/Vol] 0.8 mg/dL 0 - 1.3 mg/dL [facility] Gamma glutamyl transferase [Catalytic activity/Vol] 8 U/L 7 - 33 U/L [facility] Interpretation and review of laboratory results Abnormal [facility] Protein [Mass/Vol] 7.2 g/dL 6 - 8 g/dL [facility]th POC Urinalysis Dipstick, Aut oon 05-19-2019 Bilirubin Ql (U) Negative Negative [facility] Glucose Ql (U) Negative Negative mg/dL [facility] Hemoglobin Ql (U) Negative Negative [facility] Ketones Ql (U) 80 Abnormal Negative mg/dL [facility] Leukocyte esterase Test strip Ql (U) Negative Negative [facility] Nitrite Ql (U) Negative Negative [facility] pH (U) 6.0 [pH] [facility] Protein Ql (U) Negative Negative mg/dL [facility] Specific gravity (U) [Rel density] >=1.030 High [facility] Urobilinogen Qn (U) 0.2 mg/dL <2.0 [facility] C REACTIVE PROTEINon 020 CRP [Mass/Vol] 5.6 mg/L 0 - 10 MG/L [facility] Comment on above: Testing performed at [place] [address] RHEUMATOID FACTORon 04-06-19 20 RHEUMATOID FACTOR <8.6 <12 Iu/mL [facility] SEDIMENTATION RATE, AUTOMATE Don 04-06-2019 ESR (Bld) [Velocity] 12 mm/h [facility] [employer] Comment on above: Testing performed at [place] [address] TSHon 04-06-2019 TSH Qn 1.410 m[IU]/L [facility] Comment on above: Testing performed at [place] [address] CBC WITH AUTO DIFFERENTIALon 03-23-2019 Basophils (Bld) [#/Vol] 0.03 10*3/uL [facility] Basophils/100 WBC (Bld) 0.5 % [facility] Eosinophils (Bld) [#/Vol] 0.07 10*3/uL [facility] Eosinophils/100 WBC (Bld) 1.2 % [facility] Erythrocyte distribution width (RBC) [Entitic vol] 12.2 % 11.6 - 14.8 % [facility] Hematocrit (Bld) [Volume fraction] 34.6 % Low 36 - 46 % [facility] Hemoglobin (Bld) [Mass/Vol] 12.0 g/dL 12 - 16 g/dL [facility] Immature granulocytes (Bld) [#/Vol] 0.03 10*3/uL [facility] Immature granulocytes/100 WBC (Bld) 0.50 % [facility] Comment on above: The IG parameter is the percentage of metamyelocytes, myelocytes, and promyelocytes. Interpretation and review of laboratory results Abnormal [facility] Lymphocytes (Bld) [#/Vol] 1.88 10*3/uL [facility] Lymphocytes/100 WBC (Bld) 33.3 % [facility] MCH (RBC) [Entitic mass] 31.0 pg 25 - 35 pg [facility] MCHC (RBC) [Mass/Vol] 34.7 g/dL 31 - 37 g/dL [facility] MCV (RBC) [Entitic vol] 89.4 fL 78 - 102 fL [facility] Monocytes (Bld) [#/Vol] 0.44 10*3/uL [facility] Monocytes/100 WBC (Bld) 7.8 % [facility] Neutrophils (Bld) [#/Vol] 3.19 10*3/uL [facility] Neutrophils/100 WBC (Bld) 56.7 % [facility] Platelet mean volume (Bld) [Entitic vol] 8.9 fL Low 9 - 15.5 fL [facility] Platelets (Bld) [#/Vol] 304 10*3/uL [facility] RBC (Bld) [#/Vol] 3.87 10*6/uL Low [facility] WBC (Bld) [#/Vol] 5.64 10*3/uL [facility] CMPon 03-23-2019 Albumin [Mass/Vol] 3.3 g/dL 3.2 - 4.5 [facility] AL[facility] [Catalytic activity/Vol] 139 U/L 110 - 630 U/L [facility] ALT [Catalytic activity/Vol] 22 U/L 14 - 65 U/L [facility] Anion gap [Moles/Vol] 12 mmol/L 10 - 20 mmol/L [facility] AST [Catalytic activity/Vol] 16 U/L 0 - 45 U/L [facility] Bilirubin [Mass/Vol] 0.1 mg/dL 0 - 1.3 mg/dL [facility] Calcium [Mass/Vol] 9.2 mg/dL 8.4 - 10. 2 mg/dL [facility] Chloride [Moles/Vol] 107 mmol/L 98 - 10 8 mmol/L [facility] Creatinine [Mass/Vol] 0.68 mg/dL 0.5 - 1 mg/dL [facility] GFR/1.73 sq M predicted among non-blacks MDRD (S/P/Bld) [Vol rate/Area] The eGFR should be used for monitoring renal function only and not for medication dosing. [facility] Glucose [Mass/Vol] 98 mg/dL 65 - 99 mg/dL [facility] HCO3 [Moles/Vol] 26 mmol/L 21 - 32 mmol/L [facility] Interpretation and review of laboratory results Normal [facility] Potassium [Moles/Vol] 4.5 mmol/L 3.5 - 5.1 mmol/L [facility] Protein [Mass/Vol] 7.1 g/dL 6 - 8 g/dL [facility] Sodium [Moles/Vol] 140 mmol/L 135 - 145 mmol/L [facility] Urea nitrogen [Mass/Vol] 13 mg/dL 8 - 25 mg/dL [facility] Urea nitrogen/Creatinine [Mass ratio] 19.1 mg/mg [facility] INFLUENZA A,B RAPID MOLECULA Bob 03-23-2019 FLUAV RNA GISSELLE+probe Ql (Unsp spec) Not Detected Not Detected [facility] FLUBV RNA GISSELLE+probe Ql (Unsp spec) Not Detected Not Detected [facility] Interpretation and review of laboratory results Normal [facility] Test Method: Nucleic Acid Amplification [facility] Mononucleosis Screenon 03-23 Heterophile Ab Ql (S) Negative Negative [facility] Interpretation and review of laboratory results Normal [facility] Rapid Strep Screenon 020 Interpretation and review of laboratory results Normal [facility] Strep A Ag Negative Presumptive Negative for Group A Streptococcus [facility] CT Abdomen Pelvis With IV Co ntrast [...] visualized osseous structures demonstrate no gross abnormalities. [facility] Interface, Rad In Fu ji Speechq - [...] to explain patient's symptoms. 2. Previous appendectomy. Hochy eto Workstation ID: [id number] [facility] 1. No acute process in abdomen or pelvis to explain patient's symptoms. 2. Previous appendectomy. [employer]ochy eto Workstation ID: [id number] [facility] CBC WITH AUTO DIFFERENTIALon 12-14-2018 Basophils (Bld) [#/Vol] 0.04 10*3/uL [facility] Basophils/100 WBC (Bld) 0.8 % [facility] Eosinophils (Bld) [#/Vol] 0.07 10*3/uL [facility] Eosinophils/100 WBC (Bld) 1.3 % [facility] Erythrocyte distribution width (RBC) [Entitic vol] 12.1 % 11.6 - 14.8 % [facility] Hematocrit (Bld) [Volume fraction] 35.8 % Low 36 - 46 % [facility] Hemoglobin (Bld) [Mass/Vol] 12.4 g/dL 12 - 16 g/dL [facility] Immature granulocytes (Bld) [#/Vol] 0.00 10*3/uL [facility] Immature granulocytes/100 WBC (Bld) 0.00 % [facility] Comment on above: The IG parameter is the percentage of metamyelocytes, myelocytes, and promyelocytes. Interpretation and review of laboratory results Abnormal [facility] Lymphocytes (Bld) [#/Vol] 2.59 10*3/uL [facility] Lymphocytes/100 WBC (Bld) 49.4 % [facility] MCH (RBC) [Entitic mass] 31.6 pg 25 - 35 pg [facility] MCHC (RBC) [Mass/Vol] 34.6 g/dL 31 - 37 g/dL [facility] MCV (RBC) [Entitic vol] 91.1 fL 78 - 102 fL [facility] Monocytes (Bld) [#/Vol] 0.37 10*3/uL [facility] Monocytes/100 WBC (Bld) 7.1 % [facility] Neutrophils (Bld) [#/Vol] 2.17 10*3/uL [facility] Neutrophils/100 WBC (Bld) 41.4 % [facility] Nucleated RBC (Bld) [#/Vol] 0.00 10*3/uL [facility] Nucleated RBC/100 WBC (Bld) [Ratio] 0.0 % [facility] Platelet mean volume (Bld) [Entitic vol] 9.3 fL 9 - 15.5 fL [facility] Platelets (Bld) [#/Vol] 257 10*3/uL [facility] RBC (Bld) [#/Vol] 3.93 10*6/uL Low [facility] WBC (Bld) [#/Vol] 5.24 10*3/uL [facility] Chem 7on 12-14-2018 Anion gap [Moles/Vol] 10 mmol/L 10 - 20 mmol/L [facility] Chloride [Moles/Vol] 110 mmol/L High 98 - 10 8 mmol/L [facility] Creatinine [Mass/Vol] 0.78 mg/dL 0.5 - 1 mg/dL [facility] GFR/1.73 sq M predicted among non-blacks MDRD (S/P/Bld) [Vol rate/Area] The eGFR should be used for monitoring renal function only and not for medication dosing. [facility] Glucose [Mass/Vol] 92 mg/dL 65 - 99 mg/dL [facility] HCO3 [Moles/Vol] 27 mmol/L 21 - 32 mmol/L [facility] Interpretation and review of laboratory results Abnormal [facility] Potassium [Moles/Vol] 3.9 mmol/L 3.5 - 5.1 mmol/L [facility] Sodium [Moles/Vol] 143 mmol/L 135 - 145 mmol/L [facility] Urea nitrogen [Mass/Vol] 9 mg/dL 8 - 25 mg/dL [facility] Urea nitrogen/Creatinine [Mass ratio] 11.5 mg/mg [facility] Hepatic Function Panel (LFT) on 12-14-2018 Albumin [Mass/Vol] 3.3 g/dL 3.2 - 4.5 g/dL [facility] ALP [Catalytic activity/Vol] 113 U/L 110 - 630 U/L [facility] ALT [Catalytic activity/Vol] 28 U/L 14 - 65 U/L [facility] AST [Catalytic activity/Vol] 22 U/L 0 - 45 U/L [facility] Bilirubin [Mass/Vol] 0.2 mg/dL 0 - 1.3 mg/dL [facility] Bilirubin.conjugated [Mass/Vol] mg/dL 0 - 0.4 mg/dL [facility] Protein [Mass/Vol] 6.7 g/dL 6 - 8 g/dL [facility] Lipaseon 12-14-2018 Lipase [Catalytic activity/Vol] 149 U/L 73 - 393 U/L [facility] Otheron 12-14-2018 Extra Tube Hold for add-ons. [facility] Comment on above: Auto resulted. Interpretation and review of laboratory results Normal [facility] URINALYSISon 12-14-2018 Bacteria Auto Ql (U) None Seen None Seen /hpf [facility] Bilirubin Ql (U) Negative Negative [facility] Cl[facility] Refractometry automated (U) Hazy Abnormal Clear [facility] Color (U) Yellow Colorless, Yellow [facility] Epithelial cells.squamous Auto (Urine sed) [#/Area] 1 [facility] Glucose Auto test strip (U) [Mass/Vol] Negative Negative mg/dL [facility] Hemoglobin Auto test strip Ql (U) Moderate Abnormal Negative [facility] Interpretation and review of laboratory results Abnormal [facility] Ketones (U) [Mass/Vol] Negative Negative mg/dL [facility] Leukocyte esterase Auto test strip Ql (U) Negative Negative [facility] Mucus Auto (Urine sed) [#/Area] Rare None Seen, Rare /lpf [facility] Nitrite Auto test strip Ql (U) Negative Negative [facility] pH (U) 7.0 [pH] [facility] Protein (U) [Mass/Vol] Negative Negative mg/dL [facility] RBC Auto (Urine sed) [#/Area] 29 High [facility] Specific gravity (U) [Rel density] 1.013 [facility] Urobilinogen (U) [Mass/Vol] <2.0 <2.0 mg/dL [facility] Microscopic examinat ion is performed on all urinalysis samples and only positive findings are reported. The test for blood on the chemical analytic portion of urinalysis may also be positive due to hemoglobinuria and myoglobinuria and if red blood cells are present they are quantified by microscopic examination. [facility] Urine Pregnancyon 12-14-2018 HCG ( test) Ql (U) Negative Negative [facility] Interpretation and review of laboratory results Normal [facility] MRI SHOULDER LEFT WITHOUT CO NTRASTon 11-21-2018 IMPRESSION: 1. No evidence of labral tear or acute Hill-Sachs defect. 2. Rotator cuff tendons appear intact. 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 The AC joint is maintained. [facility] User, Interfaces - 11/21/2018 5:13 PM [...] defect. 2. Rotator cuff tendons appear intact. [facility] CBC WITH AUTO DIFFERENTIALon 09-22-2018 Basophils (Bld) [#/Vol] 0.02 10*3/uL [facility] Basophils/100 WBC (Bld) 0.4 % [facility] Eosinophils (Bld) [#/Vol] 0.05 10*3/uL [facility] Eosinophils/100 WBC (Bld) 0.9 % [facility] Erythrocyte distribution width (RBC) [Entitic vol] 11.9 % 11.6 - 14.8 % [facility] Hematocrit (Bld) [Volume fraction] 34.5 % Low 36 - 46 % [facility] Hemoglobin (Bld) [Mass/Vol] 12.0 g/dL 12 - 16 g/dL [facility] Immature granulocytes (Bld) [#/Vol] 0.01 10*3/uL [facility] Immature granulocytes/100 WBC (Bld) 0.20 % [facility] Comment on above: The IG parameter is the percentage of metamyelocytes, myelocytes, and promyelocytes. Interpretation and review of laboratory results Abnormal [facility] Lymphocytes (Bld) [#/Vol] 2.07 10*3/uL [facility] Lymphocytes/100 WBC (Bld) 38.9 % [facility] MCH (RBC) [Entitic mass] 31.4 pg 25 - 35 pg [facility] MCHC (RBC) [Mass/Vol] 34.8 g/dL 31 - 37 g/dL [facility] MCV (RBC) [Entitic vol] 90.3 fL 78 - 102 fL [facility] Monocytes (Bld) [#/Vol] 0.39 10*3/uL [facility] Monocytes/100 WBC (Bld) 7.3 % [facility] Neutrophils (Bld) [#/Vol] 2.78 10*3/uL [facility] Neutrophils/100 WBC (Bld) 52.3 % [facility] Platelet mean volume (Bld) [Entitic vol] 9.1 fL 9 - 15.5 fL [facility] Platelets (Bld) [#/Vol] 225 10*3/uL [facility] RBC (Bld) [#/Vol] 3.82 10*6/uL Low [facility] WBC (Bld) [#/Vol] 5.32 10*3/uL [facility] Mononucleosis Screenon 09-22 Heterophile Ab Ql (S) Negative Negative [facility] Interpretation and review of laboratory results Normal [facility] BMPon 06-22-2018 Anion gap molar conc 14 mmol/L 10 - 20 mmol/L [facility] Calcium mass conc 8.9 mg/dL 8.4 - 10.2 mg/dL [facility] Chloride molar conc 106 mmol/L 98 - 108 mmol/L [facility] Creatinine mass conc 0.88 mg/dL 0.5 - 1 mg/dL [facility] GFR/1.73 sq M predicted among non-blacks MDRD vol rate/area (S/P/Bld) The eGFR should be used for monitoring renal function only and not for medication dosing. [facility] Glucose mass conc 76 mg/dL 65 - 99 mg/dL [facility] HCO3 molar conc 26 mmol/L 21 - 32 mmol/L [facility] Potassium molar conc 3.8 mmol/L 3.5 - 5 .1 mmol/L [facility] Sodium molar conc 142 mmol/L 135 - 145 mmol/L [facility] Urea nitrogen mass conc 13 mg/dL 8 - 25 mg/dL [facility] Urea nitrogen/Creatinine mass ratio 14.8 mg/mg [facility] CBC WITH AUTO DIFFERENTIALon 06-22-2018 Basophils #/vol (Bld) 0.03 10*3/uL [facility] Basophils/100 WBC (Bld) 0.5 % [facility] Eosinophils #/vol (Bld) 0.05 10*3/uL [facility] Eosinophils/100 WBC (Bld) 0.8 % [facility] Erythrocyte distribution width Entitic volume (RBC) 12.3 % 11.6 - 14.8 % [facility] Hematocrit Volume Fraction (Bld) 40.1 % 36 - 46 % [facility] Hemoglobin mass conc (Bld) 13.9 g/dL 12 - 16 g/dL [facility] Immature granulocytes #/vol (Bld) 0.03 10*3/uL [facility] Immature granulocytes/100 WBC (Bld) 0.50 % [facility] Comment on above: The IG parameter is the percentage of metamyelocytes, myelocytes, and promyelocytes. Lymphocytes #/vol (Bld) 2.44 10*3/uL [facility] Lymphocytes/100 WBC (Bld) 39.4 % [facility] MCH Entitic mass (RBC) 31.0 pg 25 - 35 pg [facility] MCHC mass conc (RBC) 34.7 g/dL 31 - 37 g/dL [facility] MCV Entitic volume (RBC) 89.3 fL 78 - 102 fL [facility] Monocytes #/vol (Bld) 0.33 10*3/uL [facility] Monocytes/100 WBC (Bld) 5.3 % [facility] Neutrophils #/vol (Bld) 3.32 10*3/uL [facility] Neutrophils/100 WBC (Bld) 53.5 % [facility] Platelet mean volume Entitic volume (Bld) 9.4 fL 9 - 15.5 fL [facility] Platelets #/vol (Bld) 262 10*3/uL [facility] RBC #/vol (Bld) 4.49 10*6/uL [facility] WBC #/vol (Bld) 6.20 10*3/uL [facility] Hepatic Function Panel (LFT) on 06-22-2018 Albumin mass conc 4.4 g/dL 3.2 - 4.5 g/dL [facility] ALP enzyme act/vol 186 U/L 110 - 630 U/L [facility] ALT enzyme act/vol 18 U/L 14 - 65 U/L [facility] AST enzyme act/vol 20 U/L 0 - 45 U/L [facility] Bilirubin mass conc 0.4 mg/dL 0 - 1.3 mg/dL [facility] Bilirubin.conjugated mass conc 0.1 mg/dL 0 - 0.4 mg/dL [facility] Protein mass conc 7.6 g/dL 6 - 8 g/dL [facility] Otheron 06-22-2018 Interpretation and review of laboratory results Normal [facility] CBC WITH AUTO DIFFERENTIALon 06-16-2018 Basophils #/vol (Bld) 0.02 10*3/uL [facility] Basophils/100 WBC (Bld) 0.4 % [facility] Eosinophils #/vol (Bld) 0.05 10*3/uL [facility] Eosinophils/100 WBC (Bld) 1.0 % [facility] Erythrocyte distribution width Entitic volume (RBC) 12.3 % 11.6 - 14.8 % [facility] Hematocrit Volume Fraction (Bld) 39.0 % 36 - 46 % [facility] Hemoglobin mass conc (Bld) 13.4 g/dL 12 - 16 g/dL [facility] Immature granulocytes #/vol (Bld) 0.00 10*3/uL [facility] Immature granulocytes/100 WBC (Bld) 0.00 % [facility] Comment on above: The IG parameter is the percentage of metamyelocytes, myelocytes, and promyelocytes. Lymphocytes #/vol (Bld) 2.14 10*3/uL [facility] Lymphocytes/100 WBC (Bld) 42.9 % [facility] MCH Entitic mass (RBC) 30.8 pg 25 - 35 pg [facility] MCHC mass conc (RBC) 34.4 g/dL 31 - 37 g/dL [facility] MCV Entitic volume (RBC) 89.7 fL 78 - 102 fL [facility] Monocytes #/vol (Bld) 0.39 10*3/uL [facility] Mon[facility]/100 WBC (Bld) 7.8 % [facility] Neutrophils #/vol (Bld) 2.39 10*3/uL [facility] Neutrophils/100 WBC (Bld) 47.9 % [facility] Platelet mean volume Entitic volume (Bld) 9.0 fL 9 - 15.5 fL [facility] Platelets #/vol (Bld) 278 10*3/uL [facility] RBC #/vol (Bld) 4.35 10*6/uL [facility] WBC #/vol (Bld) 4.99 10*3/uL [facility] Chem 7on 06-16-2018 Anion gap molar conc 9 mmol/L Low 10 - 20 mmol/L [facility] Chloride molar conc 108 mmol/L 98 - 108 mmol/L [facility] Creatinine mass conc 0.97 mg/dL 0.5 - 1 mg/dL [facility] GFR/1.73 sq M predicted among non-blacks MDRD vol rate/area (S/P/Bld) The eGFR should be used for monitoring renal function only and not for medication dosing. [facility] Glucose mass conc 86 mg/dL 65 - 99 mg/dL [facility] HCO3 molar conc 28 mmol/L 21 - 32 mmol/L [facility] Potassium molar conc 4.0 mmol/L 3.5 - 5 .1 mmol/L [facility] Sodium molar conc 141 mmol/L 135 - 145 mmol/L [facility] Urea nitrogen mass conc 17 mg/dL 8 - 25 mg/dL [facility] Urea nitrogen/Creatinine mass ratio 17.5 mg/mg [facility] Hepatic Function Panel (LFT) on 06-16-2018 Albumin mass conc 4.2 g/dL 3.2 - 4.5 g/dL [facility] ALP enzyme act/vol 191 U/L 110 - 630 U/L [facility] ALT enzyme act/vol 19 U/L 14 - 65 U/L [facility] AST enzyme act/vol 18 U/L 0 - 45 U/L [facility] Bilirubin mass conc 0.4 mg/dL 0 - 1.3 mg/dL [facility] Bilirubin.conjugated mass conc 0.1 mg/dL 0 - 0.4 mg/dL [facility] Protein mass conc 7.6 g/dL 6 - 8 g/dL [facility] Lipaseon 06-16-2018 Lipase enzyme act/vol 117 U/L 73 - 393 U/L [facility] Otheron 06-16-2018 Extra Tube Hold for add-ons. [facility] Comment on above: Auto resulted. Interpretation and review of laboratory results Abnormal [facility] Interpretation and review of laboratory results Normal [facility] Tissue Transglutaminase Ab I gAon 06-16-2018 Tissue Transglutaminase Ab IgA <20 Normal <20 [facility] Comment on above: Result Comment: Susie ents [...] Ql (U) Few Abnormal None Seen /hpf [facility] Bilirubin Ql (U) Negative Negative [facility] Refractometry automated Nom (U) Cloudy Abnormal Clear [facility] Color Nom (U) Yellow Colorless, Yellow [facility] Epithelial cells.squamous Auto #/area (Urine sed) 10 High [facility] Glucose Automated test strip mass conc (U) Negative Negative mg/dL [facility] Hemoglobin Automated test strip Ql (U) Negative Negative [facility] Ketones mass conc (U) Trace Abnormal Negative mg/dL [facility] Leukocyte esterase Automated test strip Ql (U) Negative Negative [facility] Nitrite Automated test strip Ql (U) Negative Negative [facility] pH (U) 6.0 [pH] [facility] Protein mass conc (U) Negative Negative mg/dL [facility] RBC Auto #/area (Urine sed) 2 [facility] Specific gravity Relative Density (U) 1.025 [facility] Urobilinogen mass conc (U) <2.0 <2.0 mg/dL [facility] WBC Auto #/area (Urine sed) 6 High [facility] Microscopic examinat ion is performed on all urinalysis samples and only positive findings are reported. The test for blood on the chemical analytic portion of urinalysis may also be positive due to hemoglobinuria and myoglobinuria and if red blood cells are present they are quantified by microscopic examination. [facility] Urine Pregnancyon 06-16-2018 HCG ( test) Ql (U) Negative Negative [facility] CBC Auto Diff Reflex Manualo n 06-13-2018 Automated Absolute Neutrophil 2.58 10*3/mm3 Normal [facility] [facility] Comment on above: Result Comment: Auto mated Absolute Neutrophil Count (ANC) is directly measured using a hematology instrument. ANC determined from manual differential cell count may differ. No [facility] reference range has been validated for this assay. Performed By: #### C D #### Performed at [address] [place] [facility]17 Basophil 0.6 % Normal 0.0-1.0 [facility] Comment on above: Result Comment: Perf ormed at [facility] [place] [address] Performed By: #### C D #### Performed at [address] [place] [address] Differential Type Automated [facility] Comment on above: Performed By: #### C D #### Performed at [address] [place] [address] Eosinophil 0.6 % Low 1.0-4.0 [facility] Comment on above: Performed By: #### C D #### Performed at [address] [place] [address] Erythrocyte distribution width (RBC) [Ratio] 12.7 % Normal 10-14.1 [facility] Comment on above: Performed By: #### C D #### Performed at [address] [place] [address] Lymphocyte 38.4 % Normal 28.0-48.0 [facility] Comment on above: Performed By: #### C D #### Performed at [address] [place] [address] MCH (RBC) [Entitic mass] 31.6 pg Normal 25-35 [facility] Comment on above: Performed By: #### C D #### Performed at [address] [place] [address] MCHC (RBC) [Mass/Vol] 35.1 % Normal 31.0-37.0 [facility] Comment on above: Performed By: #### C D #### Performed at [address] [place] [address] MCV (RBC) [Entitic vol] 90.0 fL Normal 78-102 [facility] Comment on above: Performed By: #### C D #### Performed at [address] [place] [address] Monocyte 7.8 % Normal 2.0-8.0 [facility] Comment on above: Performed By: #### C D #### Performed at [address] [place] [address] Neutrophil 52.6 % Normal 39.0-75.0 [facility] Comment on above: Performed By: #### C D #### Performed at [address] [place] [address] Platelet mean volume (Bld) [Entitic vol] 9.5 fL Normal 9.3-13.0 [facility] Comment on above: Performed By: #### C D #### Performed at [address] [place] [address] Platelets (Bld) [#/Vol] 306 10*3/uL Normal 140-440 [facility] Comment on above: Performed By: #### C D #### Performed at [address] [place] [address] RBC (Bld) [#/Vol] 4.40 10*6/uL Normal 4.1-5.1 [facility] Comment on above: Performed By: #### C D #### Performed at [address] [place] [address] WBC (Bld) [#/Vol] 4.9 10*3/uL Normal 4.5-13.5 [facility] Comment on above: Performed By: #### C D #### Performed at [address] [place] [address] CRPon 06-13-2018 CRP [Mass/Vol] mg/L Normal <1.2 [facility] Comprehensive Metabolic Pane jaron 06-13-2018 Albumin [Mass/Vol] 4.4 g/dL Normal 3.4-5.2 [facility] Comment on above: Performed By: #### C MTP #### Performed at [address] [place] [address] ALP [Catalytic activity/Vol] 157 U/L High 59-126 [facility] Comment on above: Performed By: #### C MTP #### Performed at [address] [place] [address] ALT [Catalytic activity/Vol] 20 U/L Normal <40 [facility] Comment on above: Performed By: #### C MTP #### Performed at [address] [place] [address] AST [Catalytic activity/Vol] 31 U/L Normal 15-50 [facility] Comment on above: Performed By: #### C MTP #### Performed at [address] [place] [address] Bilirubin Ql (U) 0.6 mg/dL Normal 0.1-1.0 [facility] Comment on above: Result Comment: Perf ormed at [address] [place] [address] Performed By: #### C MTP #### Performed at [address] [place] [address] Calcium [Mass/Vol] 9.4 mg/dL Normal 8-10.5 [facility] Comment on above: Performed By: #### C MTP #### Performed at [address] [place] [address] Chloride [Moles/Vol] 102 mmol/L Normal 95-106 [facility] Comment on above: Performed By: #### C MTP #### Performed at [address] [place] [address] CO2 [Moles/Vol] 28 mmol/L Normal 24-35 [facility] Comment on above: Performed By: #### C MTP #### Performed at [address] [place] [address] Creatinine [Mass/Vol] 0.70 mg/dL Normal 0.5-0.8 [facility] Comment on above: Result Comment: Note : New reference intervals, effective January 28, 2018. Performed By: #### C MTP #### Performed at [address] [place] [address] Glucose [Mass/Vol] 85 mg/dL Normal 60-115 [facility] Comment on above: Performed By: #### C MTP #### Performed at [address] [place] [address] Potassium [Moles/Vol] 4.3 mmol/L Normal 3.7-5.6 [facility] Comment on above: Performed By: #### C MTP #### Performed at [address] [place] [address] Protein [Mass/Vol] 7.5 g/dL Normal 5.8-8.7 [facility] Comment on above: Performed By: #### C MTP #### Performed at [address] [place] [address] Sodium [Moles/Vol] 140 mmol/L Normal 135-145 [facility] Comment on above: Performed By: #### C MTP #### Performed at [address] [place] [address] Urea nitrogen [Mass/Vol] 12 mg/dL Normal 5-18 [facility] Comment on above: Performed By: #### C MTP #### Performed at [address] [place] [address] Free T4on 06-13-2018 Free T4 [Mass/Vol] 1.0 ng/dL Normal 0.7-2.1 [facility] Lipaseon 06-13-2018 Lipase [Catalytic activity/Vol] 66 U/L Normal <202 [facility] Comment on above: Result Comment: Perf ormed at [address] [place] [address] Performed By: #### L IPA #### Performed at [address] [place] [address] Sedimentation Rateon 019 Sedimentation Rate 5 mm/h Normal <20 [facility] Comment on above: Result Comment: Perf ormed at [address] [place] [address] Performed By: #### S ED #### Performed at [address] [place] [address] TSHon 06-13-2018 TSH Qn 0.619 uIU/mL Normal 0.4-4.0 [facility] KNEE W/ONE OBLIQUEon 019 KNEE W/ONE OBLIQUE Final Report Accession No: [id number] Performed: Mar 15 2018 9:48PM Examination: [...] [place] D.O. Trans: n/a : cc: Normal [facility] CBC w/o Diffon 03-14-2018 Erythrocyte distribution width (RBC) [Ratio] 13.1 % Normal 13-[address] [facility] Comment on above: Performed By: #### H EPF, CBCWOD #### Unless otherwise noted, all testing performed by [facility] [address] [place] [address] CLIA: [id number] Can Dragger: Luca Erwin M.D. #### HEPCABS #### Unless otherwise noted, all testing performed by [address] [address] CLIA: [id number] Can Dragger: Luca Erwin M.D. Hematocrit (Bld) [Volume fraction] 38.8 % Normal 36.3-43.[address] [facility] Comment on above: Performed By: #### H EPF, CBCWOD #### Unless otherwise noted, all testing performed by [address] [address] CLIA: [id number] Can Dragger: Luca Erwin M.D. #### HEPCABS #### Unless otherwise noted, all testing performed by [place] [address] CLIA: [id number] Can Dragger: Luca Erwin M.D. Hemoglobin (Bld) [Mass/Vol] 13.7 g/dL Normal 12.2-14.[address] [facility] Comment on above: Performed By: #### H EPF, CBCWOD #### Unless otherwise noted, all testing performed by [address] [address] CLIA: [id number] Can Dragger: Luca Erwin M.D. #### HEPCABS #### Unless otherwise noted, all testing performed by [place] [address] CLIA: [id number] Can Dragger: Luca Erwin M.D. MCH (RBC) [Entitic mass] 31.3 pg Normal 26.6-31.[address] [facility] Comment on above: Performed By: #### H EPF, CBCWOD #### Unless otherwise noted, all testing performed by [address] [address] CLIA: [id number] Can Dragger: Luca Erwin M.D. #### HEPCABS #### Unless otherwise noted, all testing performed by [place] [address] CLIA: [id number] Can Dragger: Luca Erwin M.D. MCHC (RBC) [Mass/Vol] 35.3 g/dL High 32.7-34.8 [facility] Comment on above: Performed By: #### H EPF, CBCWOD #### Unless otherwise noted, [place] [address] CLIA: [id number] Can Dragger: Luca Erwin M.D. #### HEPCABS #### Unless otherwise noted, all testing performed by [place] [address] CLIA: [id number] Can Dragger: Luca Erwin M.D. MCV (RBC) [Entitic vol] 88.8 fL Normal 79.9-92.[address] [facility] Comment on above: Performed By: #### H EPF, CBCWOD #### Unless otherwise noted, [place] [address] CLIA: [id number] Can Dragger: Luca Erwin M.D. #### HEPCABS #### Unless otherwise noted, all testing performed by [place] [address] CLIA: [id number] Can Dragger: Luca Erwin M.D. Platelet mean volume (Bld) [Entitic vol] 7.4 fL Normal 7.4-10.[address] [facility] Comment on above: Performed By: #### H EPF, CBCWOD #### Unless otherwise noted, [place] [address] CLIA: [id number] Can Dragger: Luca Rip, M.D. #### HEPCABS #### Unless otherwise noted, all testing performed by [place] [address] CLIA: [id number] Can Dragger: Luca Erwin M.D. Platelets (Bld) [#/Vol] 292 K/mcL Normal 130-[address] [facility] Comment on above: Performed By: #### H EPF, CBCWOD #### Unless otherwise noted, [place] [address] CLIA: [id number] Can Dragger: Luca Erwin M.D. #### HEPCABS #### Unless otherwise noted, all testing performed by [place] [address] CLIA: [id number] Can Dragger: Luca Erwin M.D. RBC (Bld) [#/Vol] 4.36 M/mcL Normal 4.1-5.2 [facility] Comment on above: Performed By: #### H EPF, CBCWOD #### Unless otherwise noted, all testing performed by [address] [address] CLIA: [id number] Can Dragger: Luca Erwin M.D. #### HEPCABS #### Unless otherwise noted, all testing performed by [place] [address] CLIA: [id number] Can Dragger: Luca Erwin M.D. WBC (Bld) [#/Vol] 5.0 K/mcL Normal 4.1-8.9 [facility] Comment on above: Performed By: #### H EPF, CBCWOD #### Unless otherwise noted, all testing performed by [address] [place] [address] CLIA: [id number] Can Dragger: Luca Erwin M.D. #### HEPCABS #### Unless otherwise noted, all testing performed by [place] [address] CLIA: [id number] Can Dragger: Luca Erwin M.D. HIV 1/2 Antibody Evalon 03-04 HIV 1/2 Antibody Eval Negative Normal Negative [facility] Comment on above: Result Comment: This assay screens for the presence of HIV-1, HIV-2 antibodies and for the presence of HIV-1 antigen. Test performed using PinsAS immunoassay system Test Performed by [facility] [address] [place] [address] Performed By: #### H IV #### Unless otherwise noted, all testing performed by [place] [address] CLIA: [id number] Can Dragger: Luca Erwin M.D. Hepatic Function Panelon Albumin [Mass/Vol] 4.2 g/dL Normal 3.8-5.4 [facility] Comment on above: Performed By: #### H EPF, CBCWOD #### Unless otherwise noted, [place] [address] CLIA: [id number] Can Dragger: Luca Erwin M.D. #### HEPCABS #### Unless otherwise noted, all testing performed by [place] [address] CLIA: [id number] Can Dragger: Luca Erwin M.D. ALP [Catalytic activity/Vol] 184 U/L Normal 110-[address] [facility] Comment on above: Performed By: #### H EPF, CBCWOD #### Unless otherwise noted, [place] [address] CLIA: [id number] Can Dragger: Luca Erwin M.D. #### HEPCABS #### Unless otherwise noted, all testing performed by [place] [phone] CLIA: [id number] Can Dragger: Luca Erwin M.D. ALT [Catalytic activity/Vol] 17 U/L Normal 14-[address] [facility] Comment on above: Result Comment: This test result might be falsely depressed or falsely elevated on samples drawn from patients taking Sulfasalazine and Sulfapyridine. Venipuncture should occur prior to taking either of these drugs. Performed By: #### H EPF, CBCWOD #### Unless otherwise noted, all testing performed by [place] [phone] CLIA: [id number] Can Dragger: Luca Erwin M.D. #### HEPCABS #### Unless otherwise noted, all testing performed by [place] [phone] CLIA: [id number] Can Dragger: Luca Erwin M.D. AST [Catalytic activity/Vol] 13 U/L Normal 0-[address] [facility] Comment on above: Result Comment: This test result might be falsely depressed or falsely elevated on samples drawn from patients taking Sulfasalazine and Sulfapyridine. Venipuncture should occur prior to taking either of these drugs. Performed By: #### H EPF, CBCWOD #### Unless otherwise noted, [place] [address] CLIA: [id number] Can Dragger: Luca Erwin M.D. #### HEPCABS #### Unless otherwise noted, all testing performed by [place] [address] CLIA: [id number] Can Dragger: Luca Erwin M.D. Bilirubin [Mass/Vol] 0.5 mg/dL Normal 0.3-1.2 [facility] Comment on above: Performed By: #### H EPF, CBCWOD #### Unless otherwise noted, [place] [address] CLIA: [id number] Can Dragger: Luca Erwin M.D. #### HEPCABS #### Unless otherwise noted, all testing performed by [place] [phone] CLIA: [id number] Can Dragger: Luca Erwin M.D. Bilirubin.direct [Mass/Vol] 0.1 mg/dL Normal 0.0-0.[address] [facility] Comment on above: Performed By: #### H EPF, CBCWOD #### Unless otherwise noted, [place] [address] CLIA: [id number] Can Dragger: Luca Erwin M.D. #### HEPCABS #### Unless otherwise noted, all testing performed by [place] [phone] CLIA: [id number] Can Dragger: Luca Erwin M.D. Protein [Mass/Vol] 7.9 g/dL Normal 6.0-8.0 [facility] Comment on above: Performed By: #### H EPF, CBCWOD #### Unless otherwise noted, all testing performed by [place] [phone] CLIA: [id number] Can Dragger: Luca Erwin M.D. #### HEPCABS #### Unless otherwise noted, all testing performed by [place] [address] CLIA: [id number] Can Dragger: Luca Erwin M.D. Hepatitis C Antibodyon 03-14 Hepatitis C Antibody Negative Normal Negative [facility] Comment on above: Result Comment: Test performed using Ylopo BLAKE immunoassay system Test Performed by [facility] [address] [place] [address] Performed By: #### H EPF, CBCWOD #### Unless otherwise noted, [place] [address] CLIA: [id number] Can Dragger: Luca Erwin M.D. #### HEPCABS #### Unless otherwise noted, all testing performed by [place] [address] CLIA: [id number] Can Dragger: Meli Montanez 02-18-2018 [place] Office Visit (MICHELINE) -------- ETHAN HERNANDEZ ([id number]) 1 F Date Time Provider Department 02/18/18 3:00 PM NAVA CURTIS During your visit today, we recorded the following information about you: Pulse Respiration Blood pressure Weight 61/minute 20/minute 108/68 65.1 kg Height Last Period 1.7 m 02/05/18 Nava Curtis MD 02/21/2018 2:37 PM Signed INITIAL OUTPATIENT VISIT PEDIATRIC RHEUMATOLOGY SERVICE DATE: 02/18/2018 REFERRING PHYSICIAN: Sulma Rashid MD [address] [facility] [address] PRIMARY CARE PHYSICIAN: Milton Leos (Historical) CHIEF [...] 4 by a specialist for marfans in [place] and again last year age 11 at [facility] in [place] with Genetics. Mother was frustrated that no [...] week ago, she went to ED at [facility] for neck pain.She had normal C-spine CT [...] machines and no aqua therapy. Seen by [facility] Cardiology, Dr. Rashid yesterday and had normal [...] enhancement following contrast administration. CT C-spine 02/16/2018 [facility] ([facility]) IMPRESSION: 1. No fracture or subluxation [...] RECOMMENDATIONS: - Consult Pain clinic program at [facility] - Tylenol/ibuprofen for pain - Diclofenac gel apply on affected area 3-4 times/day - Can try massaging machine - Letter for modified PE class will be sent to mother. - Follow up in clinic in 3 months. I spent 60 minutes with this family [id number] with >50% time spent counseling regarding diagnosis and treatment. In addition, I spent 20 minutes of sdg-pqes-dn-face time reviewing records and coordinating care. Thank you very much for allowing me participate in the care for Ethan Hernandez . If you have any questions or concern,s please do not hesitate to contact me. Nava Curtis MD, [facility] Staff, Pediatric Rheumatology [facility] Pager: [phone] Appt: [phone] Criselda Guzman MA, RAMON 02/18/2018 2:39 PM [...] Plan: - Consult Pain clinic program at [facility] - Tylenol/ibuprofen for pain - Diclofenac gel apply on affected area 3-4 times/day - Can try massaging machine - Follow up in clinic in 3 months. Referring Provider: SULMA RASHID) [[id number]] Allergies As of Date: 02/18/2018 Noted Allergy [...] TubeRfl: 1 CONSULT TO PEDS PHYSICAL THERAPY [facility] [[id number]] Order #: [id number]: 1 Prescriptions as of 02/18/2018 Sig: CYCLOBENZAPRINE [...] Plan: - Consult Pain clinic program at [facility] - Tylenol/ibuprofen for pain - Diclofenac gel [...] by NAVA CURTIS MD on 02/21/18 Normal [facility] CNOV Office Visit (HIMB ) -------- ETHAN HERNANDEZ ([id number]) 1 F Date Time Provider Department 02/18/18 11:00 AM [facility] [...] Ethan Hernandez in Pediatric Cardiology consultation at [facility] on 02/18/2018. Ethan is a 12 year old female seen today for evaluation. 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 Per her mother, she was initially diagnosed at age 4 and then again confirmed in April 2017 at [facility]. 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 Ethan was last evaluated by a [employer]aten Press Operator Apprentice at [facility] in November 2015. Echocardiogram at that [...] to get her an appointment today with [facility] Pediatric Rheumatology to address her joint pain [...] As Of Date: 02/18/2018 (None) Letter Text [facility] [address] [place] [address] February 18, 2018 RE: Ethanbita Hernandez To Whom it May Concern: This is to confirm that the above patient was seen on 02/18/18. Please excuse her from school today. Thank you for your cooperation in this matter. Sincerely, Sulma Rashid DO Encounter Status:Closed by SULMA RASHID on 02/20/18 [facility] [id number] 02-18-2018 ECG01 NAME : ETHAN HERNANDEZ PID : [id number] : 2005 Gender : Female Race : ORD : [id number] Procedure Date : Feb 18 2018 12:23:41 [...] ms QTC Calculation(Bezet) : 411 ms P Linden : 16 degrees R Linden : 76 degrees T Linden : 30 degrees Test Reason : q79.6 Location : 140 : PEDMOB Overread By : Jaswinder RASHID HOLLY Edited By : Jaswinder RASHID HOLLY Referred By : SULMA RASHID Acquired by : kim [facility] PROGRESSon 02-18-2018 PROGRESS HNO ID: [id number] Author: Nava Curtis Service: (none) Author Type: Physician Type: Progress Notes Filed: 02/21/2018 2:37 PM Note Text: INITIAL OUTPATIENT VISIT PEDIATRIC RHEUMATOLOGY SERVICE DATE: 02/18/2018 REFERRING PHYSICIAN: Sulma Rashid MD [address] [facility] [address] PRIMARY CARE PHYSICIAN: Milton Leos (Historical) CHIEF [...] 4 by a specialist for marfans in [place] and again last year age 11 at [facility] in [place] with Genetics. Mother was frustrated that no [...] week ago, she went to ED at [facility] for neck pain.She had normal C-spine CT [...] machines and no aqua therapy. Seen by [facility] Cardiology, Dr. Rashid yesterday and had normal [...] enhancement following contrast administration. CT C-spine 02/16/2018 [facility] ([facility]) IMPRESSION: 1. No fracture or subluxation [...] BMI: 77 %ile (Z= 0.75) based on [facility] 2-20 Years BMI-for-age data using vitals from [...] RECOMMENDATIONS: - Consult Pain clinic program at [facility] - Tylenol/ibuprofen for pain - Diclofenac gel apply on affected area 3-4 times/day - Can try massaging machine - Letter for modified PE class will be sent to mother. - Follow up in clinic in 3 months. I spent 60 minutes with this family [id number] with >50% time spent counseling regarding diagnosis and treatment. In addition, I spent 20 minutes of xxb-ukvv-nq-face time reviewing records and coordinating care. Thank you very much for allowing me participate in the care for Ethan Hernandez . If you have any questions or concern,s please do not hesitate to contact me. Nava Curtis MD, [facility] Staff, Pediatric Rheumatology [facility] Pager: [phone] Appt: [phone] Normal [facility] PROGRESS HNO ID: [id number] Author: Sulma Tyler) Gay Service: (none) Author Type: Physician Type: Progress Notes Filed: 02/20/2018 8:40 AM Note Text: OUTPATIENT VISIT PEDIATRIC CARDIOLOGY SERVICE DATE: 02/18/2018 SERVICE TIME: 11:00am PCP: Milton Leos (Historical) Diagnosis: New Patient Consulted by: SELF I had the pleasure of seeing Ethan Hernandez in Pediatric Cardiology consultation at [facility] on 02/18/2018. Ethan is a 12 year old female seen today for evaluation. 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 Per her mother, she was initially diagnosed at age 4 and then again confirmed in April 2017 at [facility]. 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 Ethan was last evaluated by a Platen Press Operator Apprentice at [facility] in November 2015. Echocardiogram at that [...] to get her an appointment today with [facility] Pediatric Rheumatology to address her joint pain [...] echocardiography findings with the interpreting physician. Normal [facility] CBC, EDIF, PLATELETon 2017 ABSOLUTE BASOPHIL COUNT 0.0 Invalid Interpretation Code X10 [address] Basophils/100 WBC Auto (Bld) 0.6 % Invalid Interpretation Code 0 - 2 % [address] Differential cell count method Nom (Bld) AUTO DIFF Invalid Interpretation Code % [address] Eosinophils Auto #/vol (Bld) 0.10 10*3/uL Invalid Interpretation Code X10 [address] Eosinophils/100 WBC Auto (Bld) 0.9 % Invalid Interpretation Code 0 - 11 % [address] Erythrocyte distribution width Ratio (RBC) 13.2 % Invalid Interpretation Code 11.5 - 14.5 % [address] Hematocrit Auto Volume Fraction (Bld) 37.5 % Invalid Interpretation Code 36 - 48 % [address] Hemoglobin mass conc (Bld) 12.9 g/dL Invalid Interpretation Code [address] Lymphocytes Manual cnt #/vol (Bld) 1.80 Invalid Interpretation Code X10 [address] Lymphocytes/100 WBC Auto (Bld) 31.3 % Invalid Interpretation Code 20 - 55 % [address] MCH Auto Entitic mass (RBC) 31.5 pg Invalid Interpretation Code 26 - [address] MCHC Auto mass conc (RBC) 34.3 g/dL Invalid Interpretation Code [address] MCV Auto Entitic volume (RBC) 91.[address] fL Invalid Interpretation Code [facility] [address] [place] [address] Monocytes Manual cnt #/vol (Bld) 0.4 Invalid Interpretation Code X10 [address] Monocytes/100 WBC Auto (Bld) 7.6 % Invalid Interpretation Code 0 - 10 % [address] Neutrophils Auto #/vol (Bld) 3.5 10*3/uL Invalid Interpretation Code [address] Neutrophils/100 WBC Auto (Bld) 59.6 % Invalid Interpretation Code 37 - 75 % [address] Platelet mean volume Auto Entitic volume (Bld) 7.6 fL Invalid Interpretation Code [address] Platelets Auto #/vol (Bld) 226 10*3/uL Invalid Interpretation Code [address] RBC Auto #/vol (Bld) 4.09 10*6/uL Invalid Interpretation Code [address] WBC Auto #/vol (Bld) 5.9 10*3/uL Invalid Interpretation Code [address] COMPREHENSIVE METABOLIC PANE Jaron 02-16-2018 Albumin mass conc 4.2 G/dl Invalid Interpretation Code 3.5 - 5 G/dl [address] Albumin/Globulin mass ratio 1.8 {ratio} Invalid Interpretation Code [facility] - [address] [place] [address] ALP enzyme act/vol 124 U/L Invalid Interpretation Code [facility] - [address] [place] [address] ALT enzyme act/vol 11 U/L Low [facility] [address] AST enzyme act/vol 14 U/L Low [address] Bilirubin mass conc mg/dL Invalid Interpretation Code [address] Calcium mass conc 9.2 mg/dL Invalid Interpretation Code [address] Chloride molar conc 106 mmol/L Invalid Interpretation Code [address] CO2 molar conc 26 mmol/L Invalid Interpretation Code [address] Creatinine mass conc 0.7 mg/dL Invalid Interpretation Code [facility] - [address] [place] [address] GFR/1.73 sq M predicted among non-blacks MDRD vol rate/area (S/P/Bld) Unable to calculate GFR due to inappropriate age/gender/creatinine value. Invalid Interpretation Code [address] Glucose fasting mass conc 95 mg/dL Invalid Interpretation Code [address] Comment on above: NORMAL <100 mg/dL DE EDIABETES 101-126 mg/dL DIABETES 126 mg/dL or higher Interpretation and review of laboratory results Abnormal Invalid Interpretation Code [address] Potassium molar conc 3.9 mmol/L Invalid Interpretation Code [address] Protein mass conc 6.5 g/dL Invalid Interpretation Code [address] Sodium molar conc 141 mmol/L Invalid Interpretation Code [address] Urea nitrogen mass conc 11 mg/dL Invalid Interpretation Code [address] SEDIMENTATION RATE, AUTOMATE Don 02-16-2018 ESR Velocity (Bld) 1 mm/h Invalid Interpretation Code [address] Vital Signs Date Time Vital Sign Value Performing Clinician Facility 12-07-2024 08:17-0400 Body height 173.[address] Maribell Yang DO Work Phone: [facility] 12-07-2024 08:17-0400 Body mass index (BMI) [Ratio] 27.4 kg/m2 Dr. Maribell Yang DO Work Phone: [facility] 12-07-2024 08:17-0400 Body weight 83.[address] Maribell Yang DO Work Phone: [facility] 12-07-2024 08:17-0400 Diastolic blood pressure 81 mm[Hg] Dr. Maribell Yang DO Work Phone: [facility] 12-07-2024 08:17-0400 Systolic blood pressure 122 mm[Hg] Dr. Maribell Yang DO Work Phone: [facility] 11-19-2024 13:02-0400 Body height 173.[address] Maribell Yang DO Work Phone: [facility] 11-19-2024 13:02-0400 Body mass index (BMI) [Ratio] 26.4 kg/m2 Dr. Maribell Yang DO Work Phone: [facility] 11-19-2024 13:02-0400 Body weight 79.[address] Maribell Yang DO Work Phone: [facility] 11-19-2024 13:02-0400 Diastolic blood pressure 72 mm[Hg] Dr. Maribell Yang DO Work Phone: [facility] 11-19-2024 13:02-0400 Systolic blood pressure 120 mm[Hg] Dr. Maribell Yang DO Work Phone: [facility] 10-27-2024 09:39-0400 Body height 172.7 cm Loyd Prado MD Work Phone: [facility] 10-27-2024 09:39-0400 Body mass index (BMI) [Ratio] 25.45 kg/m2 Loyd Prado MD Work Phone: [facility] 10-27-2024 09:39-0400 Body weight 75.93 kg Loyd Prado MD Work Phone: [facility] 10-27-2024 09:39-0400 Diastolic blood pressure 76 mm[Hg] Loyd Prado MD Work Phone: [facility] 10-27-2024 09:39-0400 Heart rate 63 /min Loyd Prado MD Work Phone: [facility] 10-27-2024 09:39-0400 Systolic blood pressure 119 mm[Hg] Loyd Prado MD Work Phone: [facility] 10-07-2024 11:33-0400 Body height 174 cm Mary Guy [employer] Work Phone: [facility] 10-07-2024 11:33-0400 Body mass index (BMI) [Ratio] 24.12 kg/m2 Mary Guy [employer] Work Phone: [facility] 10-07-2024 11:33-0400 Body weight 73.03 kg Mary uGy [employer] Work Phone: [facility] 10-07-2024 11:33-0400 Diastolic blood pressure 63 mm[Hg] Mary Guy [employer] Work Phone: [facility] 10-07-2024 11:33-0400 Heart rate 75 /min Mary Guy [employer] Work Phone: [facility] 10-07-2024 11:33-0400 Respiratory rate 16 /min Mary Guy [employer] Work Phone: [facility] 10-07-2024 11:33-0400 SaO2% (BldA) [Mass fraction] 98 % Mary Guy [employer] Work Phone: [facility] 10-07-2024 11:33-0400 Systolic blood pressure 105 mm[Hg] Mary Malena MARQUEZ-[employer]PERVISOR [employer] Work Phone: [facility] 09-29-2024 10:56-0400 Body height 174 cm Loyd Prado MD Work Phone: [facility] 09-29-2024 10:56-0400 Body mass index (BMI) [Ratio] 22.48 kg/m2 Loyd Prado MD Work Phone: [facility] 09-29-2024 10:56-0400 Body weight 68.04 kg Loyd Prado MD Work Phone: [facility] 09-29-2024 10:56-0400 Diastolic blood pressure 62 mm[Hg] Loyd Prado MD Work Phone: [facility] 09-29-2024 10:56-0400 Heart rate 56 /min Loyd Prado MD Work Phone: [facility] 09-29-2024 10:56-0400 Systolic blood pressure 112 mm[Hg] Loyd Prado MD Work Phone: [facility] 09-08-2024 14:02-0400 Body height 172.7 cm Anne-Marie Bernstein MD Work Phone: [facility] 09-08-2024 14:02-0400 Body mass index (BMI) [Ratio] 22.81 kg/m2 Anne-Marie Bernstein MD Work Phone: [facility] 09-08-2024 14:02-0400 Body temperature 98.2 [degF] Anne-Marie Bernstein MD Work Phone: [facility] 09-08-2024 14:02-0400 Body weight 68.04 kg Anne-Marie Bernstein MD Work Phone: [facility] 09-08-2024 14:02-0400 Diastolic blood pressure 59 mm[Hg] Anne-Marie Bernstein MD Work Phone: [facility] 09-08-2024 14:02-0400 Heart rate 71 /min Anne-Marie Bernstein MD Work Phone: [facility] 09-08-2024 14:02-0400 Respiratory rate 16 /min Anne-Marie Bernstein MD Work Phone: [facility] 09-08-2024 14:02-0400 Systolic blood pressure 122 mm[Hg] Anne-Marie Bernstein MD Work Phone: [facility] 09-01-2024 12:25-0400 Body height 174.2 cm Loyd Prado MD Work Phone: [facility] 09-01-2024 12:25-0400 Body mass index (BMI) [Ratio] 22.44 kg/m2 Loyd Prado MD Work Phone: [facility] 09-01-2024 12:25-0400 Body weight 68.13 kg Loyd Prado MD Work Phone: [facility] 09-01-2024 12:25-0400 Diastolic blood pressure 67 mm[Hg] Loyd Prado MD Work Phone: [facility] 09-01-2024 12:25-0400 Heart rate 72 /min Loyd Prado MD Work Phone: [facility] 09-01-2024 12:25-0400 Systolic blood pressure 108 mm[Hg] Loyd Prado MD Work Phone: [facility] 05-26-2024 10:58-0400 Body height 172.1 cm Kai Wylie [employer] Work Phone: [facility] 05-26-2024 10:58-0400 Body mass index (BMI) [Ratio] 21.9 kg/m2 Kai Wylie [employer] Work Phone: [facility] 05-26-2024 10:58-0400 Body temperature 98.1 [degF] Kai Wylie [employer] Work Phone: [facility] 05-26-2024 10:58-0400 Body weight 64.86 kg Kai Wylie [employer] Work Phone: [employer] [facility] 05-26-2024 10:58-0400 Diastolic blood pressure 75 mm[Hg] Kai Wylie APRN-[employer]OR [employer] Work Phone: [facility] 05-26-2024 10:58-0400 Heart rate 68 /min Kai Wylie APRN-[employer]PER[employer]OR [employer] Work Phone: [employer] [facility] 05-26-2024 10:58-0400 Respiratory rate 12 /min Kai CARMONASUPERVISOR [employer] Work Phone: [facility] [facility] 05-26-2024 10:58-0400 SaO2% (BldA) [Mass fraction] 100 % Kai [employer]MONASUPERVISOR [employer] Work Phone: [facility] 05-26-2024 10:58-0400 Systolic blood pressure 130 mm[Hg] Kai [employer]PER[employer] Work Phone: [facility] 04-19-2024 12:09-0500 Body height 172.7 cm Lindsey Rithcie APRN-[employer]PER[employer] Work Phone: [facility] 04-19-2024 12:09-0500 Body mass index (BMI) [Ratio] 20.68 kg/m2 Lindsey Ritchie APRN-[employer] Work Phone: [facility] 04-19-2024 12:09-0500 Body temperature 99.39 [degF] Lindsey Ritchie [employer] Work Phone: [facility] 04-19-2024 12:09-0500 Body weight 61.69 kg Lindsey Ritchie [employer] Work Phone: [facility] 04-19-2024 12:09-0500 Diastolic blood pressure 71 mm[Hg] Lindsey Ritchie APRN-[employer]PER[employer] Work Phone: [facility] 04-19-2024 12:09-0500 Heart rate 90 /min Lindsey Ritchie [employer] Work Phone: [facility] 04-19-2024 12:09-0500 SaO2% (BldA) [Mass fraction] 100 % Lindsey Ritchie APRN-[employer]PER[employer]OR [employer] Work Phone: [facility] 04-19-2024 12:09-0500 Systolic blood pressure 117 mm[Hg] Lindseyrobert Ritchie [employer] Work Phone: [facility] 11-28-2023 21:39-0400 Body height 172.7 cm Meme Prasad MD Work Phone: [facility] 11-28-2023 21:39-0400 Body mass index (BMI) [Ratio] 19.77 kg/m2 Meme Prasad MD Work Phone: [facility] 11-28-2023 21:39-0400 Body weight 58.97 kg Meme Prasad MD Work Phone: [facility] 11-28-2023 21:38-0400 Body temperature 98.01 [degF] Meme Prasad MD Work Phone: [facility] 11-28-2023 21:38-0400 Diastolic blood pressure 84 mm[Hg] Meme Prasad MD Work Phone: [facility] 11-28-2023 21:38-0400 Heart rate 60 /min Meme Prasad MD Work Phone: [facility] 11-28-2023 21:38-0400 Respiratory rate 18 /min Meme Prasad MD Work Phone: [facility] 11-28-2023 21:38-0400 SaO2% (BldA) [Mass fraction] 100 % Meme Prasad MD Work Phone: [facility] 11-28-2023 21:38-0400 Systolic blood pressure 135 mm[Hg] Meme Prasad MD Work Phone: [facility] 09-15-2023 19:32-0400 Diastolic blood pressure 80 mm[Hg] Meme Gimenez [employer] Work Phone: [facility] 09-15-2023 19:32-0400 Heart rate 60 /min Meme Gimenez [employer] Work Phone: [facility] 09-15-2023 19:32-0400 Respiratory rate 16 /min Meme Gimenez [employer] Work Phone: [facility] 09-15-2023 19:32-0400 SaO2% (BldA) [Mass fraction] 98 % Meme Gimenez [employer] Work Phone: [facility] 09-15-2023 19:32-0400 Systolic blood pressure 125 mm[Hg] Meme Gimenez [employer] Work Phone: 9(596)065-562123 [place] [address] 09-15-2023 17:57-0400 Body temperature 97.81 [degF] Meme Gimenez [employer] Work Phone: 6(368)671-383623 [place] [address] 09-15-2023 17:55-0400 Body height 172.7 cm Meme Gimenez [employer] Work Phone: 5(477)880-334323 [place] [address] 07-23-2023 15:23-0400 Diastolic blood pressure 76 mm[Hg] Meme Gimenez [employer] Work Phone: 6(845)128-985123 [place] [address] 07-23-2023 15:23-0400 Heart rate 62 /min Meme Gimenez [employer] Work Phone: 7(814)654-962323 [place] [address] 07-23-2023 15:23-0400 Respiratory rate 16 /min Meme Gimenez [employer] Work Phone: 5(660)205-637523 [place] [address] 07-23-2023 15:23-0400 SaO2% (BldA) [Mass fraction] 100 % Meme Gimenez [employer] Work Phone: 6(523)721-194523 [place] [address] 07-23-2023 15:23-0400 Systolic blood pressure 112 mm[Hg] Meme Gimenez [employer] Work Phone: 8(339)593-118423 [place] [address] 07-23-2023 11:42-0400 Body height 172.7 cm Meme Gimenez [employer] Work Phone: 9(330)572-132323 [place] [address] 07-23-2023 11:42-0400 Body mass index (BMI) [Ratio] 19.77 kg/m2 Meme Gimenez [employer] Work Phone: 3(194)877-215623 [place] [address] 07-23-2023 11:42-0400 Body weight 58.97 kg Meme Gimenez [employer] Work Phone: 0(805)254-260623 [place] [address] 07-23-2023 11:41-0400 Body temperature 98.1 [degF] Meme Gimenez [employer] Work Phone: 9(516)691-353423 [place] [address] 07-19-2023 14:31-0400 Diastolic blood pressure 72 mm[Hg] Jana Sanchez MD Work Phone: [facility] 07-19-2023 14:31-0400 Heart rate 44 /min Jana Sanchez MD Work Phone: [facility] 07-19-2023 14:31-0400 Respiratory rate 17 /min Jana Sanchez MD Work Phone: [facility] 07-19-2023 14:31-0400 SaO2% (BldA) [Mass fraction] 100 % Jana Sanchez MD Work Phone: [facility] 07-19-2023 14:31-0400 Systolic blood pressure 112 mm[Hg] Jana Sanchez MD Work Phone: [facility] 07-19-2023 13:46-0400 Body temperature 98.2 [degF] Jana Sanchez MD Work Phone: [facility] 07-19-2023 09:00-0400 Body height 172.7 cm Jana Sanchez MD Work Phone: [facility] 07-19-2023 09:00-0400 Body mass index (BMI) [Ratio] 20.07 kg/m2 Jana Sanchez MD Work Phone: [facility] 07-19-2023 09:00-0400 Body weight 59.88 kg Jana Sanchez MD Work Phone: [facility] 04-04-2023 14:59-0500 Diastolic blood pressure 78 mm[Hg] Meme Gimenez [employer] Work Phone: [facility] 04-04-2023 14:59-0500 Heart rate 82 /min Meme Gimenez [employer] Work Phone: [facility] 04-04-2023 14:59-0500 Respiratory rate 18 /min Meme Gimenez [employer] Work Phone: [facility] 04-04-2023 14:59-0500 SaO2% (BldA) [Mass fraction] 99 % Meme Gimenez [employer] Work Phone: [facility] 04-04-2023 14:59-0500 Systolic blood pressure 132 mm[Hg] Meme Gimenez [employer] Work Phone: [facility] 04-04-2023 12:43-0500 Body temperature 98.01 [degF] Meme Gimenez [employer] Work Phone: [facility] 04-04-2023 12:41-0500 Body height 172.7 cm Meme Gimenez [employer] Work Phone: [facility] 04-04-2023 12:41-0500 Body mass index (BMI) [Ratio] 18.85 kg/m2 Meme Allentess [employer] Work Phone: [facility] 04-04-2023 12:41-0500 Body weight 56.25 kg Meme Allentess [employer] Work Phone: [facility] 09-13-2022 08:24-0400 Body height 172.1 cm Sahil Brunson III, MD Work Phone: [facility] 09-13-2022 08:24-0400 Body mass index (BMI) [Ratio] 17.46 kg/m2 Sahil Brunson III, MD Work Phone: [facility] 09-13-2022 08:24-0400 Body temperature 97.7 [degF] Sahil Brunson III, MD Work Phone: [facility] 09-13-2022 08:24-0400 Body weight 51.71 kg Sahil Brunson III, MD Work Phone: [facility] 09-13-2022 08:24-0400 Diastolic blood pressure 68 mm[Hg] Sahil Brunson III, MD Work Phone: [facility] 09-13-2022 08:24-0400 Heart rate 88 /min Sahil Brunson III, MD Work Phone: [facility] 09-13-2022 08:24-0400 Systolic blood pressure 121 mm[Hg] Sahil Brunson III, MD Work Phone: [facility] 08-06-2022 11:47-0400 Diastolic blood pressure 61 mm[Hg] Sulema Lazar MD Work Phone: [facility] 08-06-2022 11:47-0400 Heart rate 75 /min Sulema Lazar MD Work Phone: [facility] 08-06-2022 11:47-0400 Respiratory rate 13 /min Sulema Lazar MD Work Phone: [facility] 08-06-2022 11:47-0400 SaO2% (BldA) [Mass fraction] 100 % Sulema Lazar MD Work Phone: [facility] 08-06-2022 11:47-0400 Systolic blood pressure 109 mm[Hg] Sulema Lazar MD Work Phone: [facility] 08-06-2022 10:17-0400 Body temperature 97.7 [degF] Sulema Lazar MD Work Phone: [facility] 08-06-2022 07:15-0400 Body height 172.7 cm Sulema Lazar MD Work Phone: [facility] 08-06-2022 07:15-0400 Body mass index (BMI) [Ratio] 18.25 kg/m2 Sulema Lazar MD Work Phone: [facility] 08-06-2022 07:15-0400 Body weight 54.43 kg Sulema Lazar MD Work Phone: [facility] 08-02-2022 09:03-0400 Diastolic blood pressure 76 mm[Hg] Candace Trammell MD Work Phone: [facility] 08-02-2022 09:03-0400 Heart rate 76 /min Candace Trammell MD Work Phone: [facility] 08-02-2022 09:03-0400 SaO2% (BldA) [Mass fraction] 99 % Candace Trammell MD Work Phone: [facility] 08-02-2022 09:03-0400 Systolic blood pressure 107 mm[Hg] Candace Trammell MD Work Phone: [facility] 07-12-2022 13:46-0400 Body height 172.7 cm Sulema Lazar MD Work Phone: [facility] 07-12-2022 13:46-0400 Body mass index (BMI) [Ratio] 18.76 kg/m2 Sulema Lazar MD Work Phone: [facility] 07-12-2022 13:46-0400 Body weight 55.97 kg Sulema Lazar MD Work Phone: [facility] 07-05-2022 07:09-0400 Body height 172.7 cm Sulema Lazar MD Work Phone: [facility] 05-14-2022 13:05-0400 Diastolic blood pressure 71 mm[Hg] Roosevelt Gonzalez MD Work Phone: 8(052)376-259000 [place] [address] 05-14-2022 13:05-0400 Heart rate 70 /min Roosevelt Gonzalez MD Work Phone: 4(311)092-59[address] 05-14-2022 13:05-0400 Respiratory rate 18 /min Roosevelt Gonzalez MD Work Phone: 2(053)427-267000 [address] 05-14-2022 13:05-0400 SaO2% (BldA) [Mass fraction] 100 % Roosevelt Gonzalez MD Work Phone: 0(066)606-696297 [place] [address] 05-14-2022 13:05-0400 Systolic blood pressure 122 mm[Hg] Roosevelt Gonzalez MD Work Phone: 5(966)015-796497 [place] [address] 05-14-2022 11:25-0400 Body temperature 97.5 [degF] Roosevelt Gonzalez MD Work Phone: [facility] 05-01-2022 12:53-0500 Body mass index (BMI) [Ratio] 18.98 kg/m2 Dallin More MD Work Phone: [facility] 05-01-2022 12:53-0500 Body weight 55.79 kg Dallin More MD Work Phone: [facility] 05-01-2022 12:53-0500 Diastolic blood pressure 87 mm[Hg] Dallin More MD Work Phone: [facility] 05-01-2022 12:53-0500 Heart rate 72 /min Dallin More MD Work Phone: [facility] 05-01-2022 12:53-0500 Systolic blood pressure 128 mm[Hg] Dallin More MD Work Phone: [facility] 04-23-2022 10:48-0500 Body height 171.5 cm Yina Anabelle [employer] Work Phone: [facility] 04-23-2022 10:48-0500 Body mass index (BMI) [Ratio] 18.86 kg/m2 Yina Anabelle [employer] Work Phone: [facility] 04-23-2022 10:48-0500 Body weight 55.43 kg Yina Anabelle [employer] Work Phone: [facility] 04-23-2022 10:48-0500 Diastolic blood pressure 70 mm[Hg] Yina Anabelle [employer] Work Phone: [facility] 04-23-2022 10:48-0500 Heart rate 90 /min Yina Anabelle [employer] Work Phone: [facility] 04-23-2022 10:48-0500 SaO2% (BldA) [Mass fraction] 99 % Yina Anabelle [employer] Work Phone: [facility] 04-23-2022 10:48-0500 Systolic blood pressure 110 mm[Hg] Yina Ahn ARNOLD Work Phone: [facility] 04-17-2022 09:41-0500 Body height 170.2 cm Dallin More MD Work Phone: [facility] 04-17-2022 09:41-0500 Body mass index (BMI) [Ratio] 19.73 kg/m2 Dallin More MD Work Phone: [facility] 04-17-2022 09:41-0500 Body weight 57.15 kg Dallin More MD Work Phone: [facility] 04-17-2022 09:41-0500 Diastolic blood pressure 84 mm[Hg] Dallin More MD Work Phone: [facility] 04-17-2022 09:41-0500 Heart rate 71 /min Dallin More MD Work Phone: [facility] 04-17-2022 09:41-0500 Respiratory rate 14 /min Dallin More MD Work Phone: [facility] 04-17-2022 09:41-0500 SaO2% (BldA) [Mass fraction] 99 % Dallin More MD Work Phone: [facility] 04-17-2022 09:41-0500 Systolic blood pressure 122 mm[Hg] Dallin More MD Work Phone: [facility] 01-04-2022 15:32-0400 Diastolic blood pressure 96 mm[Hg] Meme Gimenez [employer] Work Phone: [facility] 01-04-2022 15:32-0400 Heart rate 62 /min Meme Gimenez [employer] Work Phone: [facility] 01-04-2022 15:32-0400 Respiratory rate 16 /min Meme Gimenez [employer] Work Phone: [facility] 01-04-2022 15:32-0400 SaO2% (BldA) [Mass fraction] 100 % Meme Gimenez [employer] Work Phone: 8(842)653-068723 [place] [address] 01-04-2022 15:32-0400 Systolic blood pressure 138 mm[Hg] Meme Gimenez [employer] Work Phone: 7(927)408-218123 [place] [address] 01-04-2022 13:59-0400 Body height 172.7 cm Meme Gimenez [employer] Work Phone: 5(535)833-435623 [place] [address] 01-04-2022 13:57-0400 Body temperature 97.7 [degF] Meme Gimenez [employer] Work Phone: 9(013)566-044423 [place] [address] 01-03-2022 15:43-0400 Diastolic blood pressure 75 mm[Hg] Meme Gimenez [employer] Work Phone: 7(752)661-556623 [place] [address] 01-03-2022 15:43-0400 Heart rate 80 /min Meme Gimenez [employer] Work Phone: 6(516)494-070723 [place] [address] 01-03-2022 15:43-0400 Respiratory rate 18 /min Meme Gimenez [employer] Work Phone: 1(352)218-490423 [place] [address] 01-03-2022 15:43-0400 SaO2% (BldA) [Mass fraction] 100 % Meme Gimenez [employer] Work Phone: 7(385)039-726123 [place] [address] 01-03-2022 15:43-0400 Systolic blood pressure 121 mm[Hg] Meme Gimenez [employer] Work Phone: 6(671)214-357623 [place] [address] 01-03-2022 12:53-0400 Body height 172.7 cm Mmee Gimenez [employer] Work Phone: 3(734)117-586723 [place] [address] 01-03-2022 12:53-0400 Body mass index (BMI) [Percentile] Per age and sex 3.95 % Meme Gimenez [employer] Work Phone: 5(346)924-700223 [place] [address] 01-03-2022 12:53-0400 Body mass index (BMI) [Ratio] 17.53 kg/m2 Meme Gimenez [employer] Work Phone: 5(688)488-603223 [place] [address] 01-03-2022 12:53-0400 Body weight 52.3 kg Meme Gimenez [employer] Work Phone: [facility] 01-03-2022 12:46-0400 Body temperature 97.81 [degF] Meme Edmundtess [employer] Work Phone: [facility] 12-05-2021 13:46-0400 Diastolic blood pressure 90 mm[Hg] Natalie Serina [employer] Work Phone: [facility] [facility] 12-05-2021 13:46-0400 Heart rate 69 /min Natalie Serina [employer] Work Phone: [facility] 12-05-2021 13:46-0400 SaO2% (BldA) [Mass fraction] 98 % Natalie Serina [employer] Work Phone: [facility] 12-05-2021 13:46-0400 Systolic blood pressure 122 mm[Hg] Natalie Serina [employer] Work Phone: [facility] 07-27-2021 08:16-0400 Body height 172.7 cm Mary Miguel MD Work Phone: [facility] 07-27-2021 08:16-0400 Body mass index (BMI) [Percentile] Per age and sex 12.94 % Mary Miguel MD Work Phone: [facility] 07-27-2021 08:16-0400 Body mass index (BMI) [Ratio] 18.55 kg/m2 Mary Miguel MD Work Phone: [facility] 07-27-2021 08:16-0400 Body weight 55.34 kg Mary Miguel MD Work Phone: [facility] 02-07-2021 06:53-0500 Body height 172 cm Milton Leos MD Work Phone: [facility] 02-07-2021 06:53-0500 Body mass index (BMI) [Percentile] Per age and sex 30.88 % Milton Leos MD Work Phone: [facility] 02-07-2021 06:53-0500 Body mass index (BMI) [Ratio] 19.81 kg/m2 Milton Leos MD Work Phone: [facility] 02-07-2021 06:53-0500 Body temperature 98.4 [degF] Milton Leos MD Work Phone: [facility] 02-07-2021 06:53-0500 Body weight 58.6 kg Milton Leos MD Work Phone: [facility] 02-07-2021 06:53-0500 Diastolic blood pressure 60 mm[Hg] Milton Leos MD Work Phone: [facility] 02-07-2021 06:53-0500 Heart rate 93 /min Milton Leos MD Work Phone: [facility] 02-07-2021 06:53-0500 Respiratory rate 18 /min Milton Leos MD Work Phone: [facility] 02-07-2021 06:53-0500 SaO2% (BldA) [Mass fraction] 99 % Milton Leos MD Work Phone: [facility] 02-07-2021 06:53-0500 Systolic blood pressure 110 mm[Hg] Milton Leos MD Work Phone: [facility] 08-08-2020 11:12-0400 Body temperature 98.2 [degF] Corona Malcom [place] [employer] [place] [facility] 08-08-2020 11:12-0400 Diastolic blood pressure 60 mm[Hg] Corona Malcom [place] [employer] [facility] 08-08-2020 11:12-0400 Heart rate 94 /min Corona Malcom [place] [employer] [facility] 08-08-2020 11:12-0400 Respiratory rate 16 /min Corona Malcom [place] [facility] [place] [facility] 08-08-2020 11:12-0400 SaO2% (BldA) [Mass fraction] 99 % Corona Malcom [place] [facility] [place] [facility] 08-08-2020 11:12-0400 Systolic blood pressure 100 mm[Hg] [facility] [place] [facility] [place] [facility] 06-17-2020 15:21-0400 Body height 172.7 cm Pedro Siddiqiu Jr., MD Work Phone: [facility] 06-17-2020 15:21-0400 Body mass index (BMI) [Ratio] 20.83 kg/m2 Pedro Siddiqui Jr., MD Work Phone: [facility] 06-17-2020 15:21-0400 Body temperature 97.81 [degF] Pedro Siddiqui Jr., MD Work Phone: [facility] 06-17-2020 15:21-0400 Body weight 62.14 kg Pedro Siddiqui Jr., MD Work Phone: [facility] 06-17-2020 15:21-0400 Diastolic blood pressure 76 mm[Hg] Pedro Siddiqui Jr., MD Work Phone: [facility] 06-17-2020 15:21-0400 Heart rate 48 /min Pedro Siddiqui Jr., MD Work Phone: [facility] 06-17-2020 15:21-0400 Respiratory rate 18 /min Pedro Siddiqui Jr., MD Work Phone: [facility] 06-17-2020 15:21-0400 SaO2% (BldA) [Mass fraction] 100 % Pedro Siddiqui Jr., MD Work Phone: [facility] 06-17-2020 15:21-0400 Systolic blood pressure 120 mm[Hg] Pedro Siddiqui Jr., MD Work Phone: [facility] 05-18-2020 00:45-0400 BP Diastolic 70 mm[Hg] Richar Hurtado [facility] 05-18-2020 00:45-0400 BP Systolic 114 mm[Hg] Richar Hurtado [facility] 05-18-2020 00:45-0400 Pulse (Heart Rate) 56 /min Richar Hurtado [facility] 05-18-2020 00:45-0400 Pulse Oximetry 98 % Richar Hurtado [facility] 05-18-2020 00:45-0400 Respiratory Rate 18 /min Richar Hurtado [facility] 05-17-2020 23:02-0400 BMI (Body Mass Index) 21.29 kg/m2 Richar Hurtado [facility] 05-17-2020 23:02-0400 Body Temperature 97.7 [degF] Richar Hurtado [facility] 05-17-2020 23:02-0400 Body weight 63.5 kg Richar Hurtado [facility] 05-17-2020 23:02-0400 Height 172.7 cm Richar Hurtado [facility] 03-31-2020 15:25-0500 BMI (Body Mass Index) 23.42 kg/m2 Mary Miguel [facility] 03-31-2020 15:25-0500 Body weight 69.85 kg Mary Miguel [facility] 03-31-2020 15:25-0500 Height 172.7 cm Mary Miguel [facility] 02-15-2020 15:09-0500 BMI (Body Mass Index) 22.5 kg/m2 Corona Malcom [place] [employer] [facility] 02-15-2020 15:09-0500 Body Temperature 97.9 [degF] Corona Malcom [place] [facility] 02-15-2020 15:09-0500 Body weight 67.72 kg Corona Malcom [place] [facility] 02-15-2020 15:09-0500 BP Diastolic 80 mm[Hg] Corona Malcom [place] [facility] [place] [facility] 02-15-2020 15:09-0500 BP Systolic 102 mm[Hg] Corona Malcom [place] [facility] [place] [facility] 02-15-2020 15:09-0500 Height 173.5 cm Corona Malcom [place] [facility] 02-15-2020 15:09-0500 Pulse (Heart Rate) 96 /min Corona Malcom [place] [employer] [place] [facility] 02-15-2020 15:09-0500 Pulse Oximetry 98 % Corona Malcom [place] [facility] [place] [facility] 02-15-2020 15:09-0500 Respiratory Rate 16 /min Corona Malcom [place] [employer] [place] 02-03-2020 08:47-0500 BMI (Body Mass Index) 22.3 kg/m2 Corona Malcom [place] [employer] 02-03-2020 08:47-0500 Body Temperature 97.7 [degF] Corona Malcom [place] [facility] [place] [facility] 02-03-2020 08:47-0500 Body weight 67.13 kg Corona Malcom [place] [facility] 02-03-2020 08:47-0500 BP Diastolic 74 mm[Hg] Corona Malcom [place] [facility] [place] [facility] 02-03-2020 08:47-0500 BP Systolic 100 mm[Hg] Corona Malcom [facility] [employer] [facility] 02-03-2020 08:47-0500 Height 173.5 cm Corona Malcom [place] [facility] 02-03-2020 08:47-0500 Pulse (Heart Rate) 100 /min Corona Malcom [place] [facility] [place] 02-03-2020 08:47-0500 Respiratory Rate 16 /min Corona Malcom [place] [facility] 12-17-2019 09:22-0400 BMI (Body Mass Index) 22.68 kg/m2 [facility] 12-17-2019 09:22-0400 Body Temperature 97.81 [degF] [facility] 12-17-2019 09:[id number] Body weight 68.27 kg [facility] 12-17-2019 09:22-0400 BP Diastolic 70 mm[Hg] [facility] 12-17-2019 09:22-0400 BP Systolic 104 mm[Hg] [facility] 12-17-2019 09:22-0400 Height 173.5 cm [facility] 12-17-2019 09:22-0400 Pulse (Heart Rate) 104 /min [facility] 12-17-2019 09:22-0400 Pulse Oximetry 98 % [facility] 12-17-2019 09:22-0400 Respiratory Rate 20 /min Milton Leos [facility] 10-14-2019 15:31-0400 Body Temperature 98.1 [degF] Mary Miguel [facility] 10-14-2019 14:33-0400 BP Diastolic 73 mm[Hg] Mary Miguel [facility] 10-14-2019 14:33-0400 BP Systolic 119 mm[Hg] Mary Miguel [facility] 10-14-2019 14:33-0400 Pulse (Heart Rate) 65 /min Mary Miguel [facility] 10-14-2019 14:33-0400 Pulse Oximetry 97 % Mary Miguel [facility] 10-14-2019 14:33-0400 Respiratory Rate 14 /min Mary Miguel [facility] 10-14-2019 08:30-0400 BMI (Body Mass Index) 23.46 kg/m2 Mary Miguel [facility] 10-14-2019 08:30-0400 Body weight 70 kg Mary Miguel [facility] 10-14-2019 08:30-0400 Height 172.7 cm Mary [facility] 09-18-2019 15:07-0400 BMI (Body Mass Index) 23.57 kg/m2 Mary Cuco [facility] 09-18-2019 15:07-0400 Body weight 70.31 kg Mary [facility] 09-18-2019 15:07-0400 Height 172.7 cm Mary [facility] 09-02-2019 11:16-0400 BMI (Body Mass Index) 20.98 kg/m2 Yum[facility] 09-02-2019 11:16-0400 Body [facility] 58.97 [facility] 09-02-2019 11:16-0400 Height 167.6 cm Yumiko [facility] 06-11-2019 09:39-0400 BMI (Body Mass Index) 24.1 kg/m2 Corona Malcom [place] [facility] 06-11-2019 09:39-0400 Body Temperature 97.59 [degF] Corona Malcom [facility] [facility] 06-11-2019 09:39-0400 Body weight 72.12 kg Corona Malcom [place] [facility] [place] 06-11-2019 09:39-0400 BP Diastolic 74 mm[Hg] Corona Malcom [facility] [facility] 06-11-2019 09:39-0400 BP Systolic 122 mm[Hg] Corona Malcom [facility] [facility] 06-11-2019 09:39-0400 Height 173 cm Corona Malcom [place] [facility] 06-11-2019 09:39-0400 Pulse (Heart Rate) 81 /min Corona Malcom [facility] [facility] 06-11-2019 09:39-0400 Pulse Oximetry 98 % Corona Malcom [place] [facility] [place] 06-11-2019 09:39-0400 Respiratory Rate 18 /min Corona Malcom [facility] [facility] 05-20-2019 01:20-0400 BP Diastolic 62 mm[Hg] [facility] 05-20-2019 01:20-0400 BP Systolic 108 mm[Hg] [facility] 05-20-2019 01:20-0400 Pulse (Heart Rate) 78 /min [facility] 05-20-2019 01:20-0400 Pulse Oximetry 98 % [facility] 05-20-2019 01:20-0400 Respiratory Rate 16 /min [facility] 05-19-2019 23:08-0400 BMI (Body Mass Index) 20.98 kg/m2 [facility] 05-19-2019 23:08-0400 Body Temperature 98.4 [degF] [facility] 05-19-2019 23:08-0400 Body weight 58.97 kg [facility] 05-19-2019 23:08-0400 Height 167.6 cm [facility] 04-06-2019 09:59-0500 BMI (Body Mass Index) 23.95 kg/m2 [facility] 04-06-2019 09:59-0500 Body Temperature 97.59 [degF] [facility] 04-06-2019 09:59-0500 Body weight 71.67 kg [facility] 04-06-2019 09:59-0500 BP Diastolic 80 mm[Hg] [facility] 04-06-2019 09:59-0500 BP Systolic 104 mm[Hg] [facility] 04-06-2019 09:59-0500 Height 173 cm [facility] 04-06-2019 09:59-0500 Pulse (Heart Rate) 85 /min [facility] 04-06-2019 09:59-0500 Pulse Oximetry 97 % [facility] 04-06-2019 09:59-0500 Respiratory Rate 20 /min [facility] 03-23-2019 19:52-0500 BP Diastolic 74 mm[Hg] [facility] 03-23-2019 19:52-0500 BP Systolic 116 mm[Hg] [facility] 03-23-2019 19:52-0500 Pulse (Heart Rate) 60 /min [facility] 03-23-2019 19:52-0500 Pulse Oximetry 99 % [facility] 03-23-2019 19:52-0500 Respiratory Rate 18 /min [facility] 03-23-2019 18:34-0500 BMI (Body Mass Index) 21.93 kg/m2 [facility] 03-23-2019 18:34-0500 Body Temperature 98.2 [degF] [facility] 03-23-2019 18:34-0500 Body weight 63.5 kg [facility] 03-23-2019 18:34-0500 Height 170.2 cm [facility] 12-15-2018 00:30-0400 BP Diastolic 73 mm[Hg] [facility] 12-15-2018 00:30-0400 BP Systolic 128 mm[Hg] [facility] 12-15-2018 00:30-0400 Pulse Oximetry 99 % [facility] 12-15-2018 00:30-0400 Respiratory Rate 18 /min [facility] 12-14-2018 23:59-0400 Body Temperature 98.4 [degF] [facility] 12-14-2018 23:59-0400 Pulse (Heart Rate) 68 /min [facility] 12-14-2018 21:24-0400 BMI (Body Mass Index) 22.32 kg/m2 [facility] 12-14-2018 21:24-0400 [facility] 12-14-2018 21:24-0400 Height 172.7 cm [facility] 11-13-2018 08:59-0400 BMI (Body Mass Index) 22.41 kg/m2 [facility] 11-13-2018 08:59-0400 Body Temperature 97.5 [degF] [facility] 11-13-2018 08:59-0400 Body weight 66.86 kg [facility] 11-13-2018 08:59-0400 BP Diastolic 64 mm[Hg] [facility] 11-13-2018 08:59-0400 BP Systolic 120 mm[Hg] [facility] 11-13-2018 08:59-0400 Height 172.7 cm [facility] 11-13-2018 08:59-0400 Pulse (Heart Rate) 68 /min [facility] 11-13-2018 08:59-0400 Pulse Oximetry 98 % [facility] 11-13-2018 08:59-0400 Respiratory Rate 14 /min [facility] 11-07-2018 11:01-0400 Height 165.1 cm [facility] 11-07-2018 10:59-0400 Body Temperature 97.9 [degF] [facility] 11-07-2018 10:59-0400 BP Diastolic 77 mm[Hg] [facility] 11-07-2018 10:59-0400 BP Systolic 140 mm[Hg] [facility] 11-07-2018 10:59-0400 Pulse (Heart Rate) 66 /min [facility] 11-07-2018 10:59-0400 Pulse Oximetry 99 % [facility] 11-07-2018 10:59-0400 Respiratory Rate 16 /min [facility] 09-22-2018 19:21-0400 BMI (Body Mass Index) 21.93 kg/m2 [facility] 07-22-2019 19:21-0400 Body Temperature 98.49 [degF] [facility] 09-22-2018 19:21-0400 Body weight 63.5 kg [facility] 09-22-2018 19:21-0400 BP Diastolic 84 mm[Hg] [facility] 09-22-2018 19:21-0400 BP Systolic 117 mm[Hg] [facility] 09-22-2018 19:21-0400 Height 170.2 cm [facility] 09-22-2018 19:21-0400 Pulse (Heart Rate) 62 /min [facility] 09-22-2018 19:21-0400 Pulse Oximetry 97 % [facility] 09-22-2018 19:21-0400 Respiratory Rate 18 /min [facility] 07-01-2018 19:04-0400 BMI (Body Mass Index) 21.61 kg/m2 [facility] 07-01-2018 19:04-0400 Height 170.2 cm [facility] 07-01-2018 19:04-0400 Weight 62.6 kg [facility] 06-22-2018 17:58-0400 BP Diastolic 68 mm[Hg] [facility] 06-22-2018 17:58-0400 BP Systolic 109 mm[Hg] [facility] 06-22-2018 17:58-0400 Pulse (Heart Rate) 47 /min [facility] 06-22-2018 17:58-0400 Pulse Oximetry 100 % [facility] 06-22-2018 16:23-0400 BMI (Body Mass Index) 20.68 kg/m2 [facility] 06-22-2018 16:23-0400 Height 172.7 cm [facility] 06-22-2018 16:23-0400 Weight 61.69 kg [facility] 06-22-2018 16:04-0400 Body Temperature 98.29 [degF] [facility] 06-22-2018 16:04-0400 Respiratory Rate 16 /min [facility] 06-16-2018 19:06-0400 BP Diastolic 64 mm[Hg] [facility] 06-16-2018 19:06-0400 BP Systolic 105 mm[Hg] [facility] 06-16-2018 19:06-0400 Pulse (Heart Rate) 44 /min [facility] 06-16-2018 19:06-0400 Pulse Oximetry 100 % [facility] 06-16-2018 19:06-0400 Respiratory Rate 16 /min [facility] 06-16-2018 17:31-0400 Body Temperature 98.4 [degF] [facility] 06-09-2018 10:57-0400 BMI (Body Mass Index) 22.05 kg/m2 [facility] 06-09-2018 10:57-0400 Height 172.7 cm [facility] 06-09-2018 10:57-0400 Weight 65.77 kg [facility] 02-16-2018 15:35-0500 Body Temperature 98.29 [degF] [facility] Work Phone: 02-16-2018 15:35-0500 BP Diastolic 70 mm[Hg] [facility] Work Phone: 02-16-2018 15:35-0500 BP Systolic 120 mm[Hg] [facility] Work Phone: 02-16-2018 15:35-0500 Pulse (Heart Rate) 68 /min [facility] Work Phone: 02-16-2018 15:35-0500 Pulse Oximetry 99 % [facility] Work Phone: 02-16-2018 15:35-0500 Respiratory Rate 20 /min [facility] Work Phone: 02-16-2018 13:38-0500 Height 172.7 cm [facility] Work Phone: Encounters Encounter Date Encounter Type Care Provider Facility Start: 12-07-2024 End: 12-07-2024 Echocardiogram normal Lenora Vidal BUILDING [employer]FORMANCE CONSULTANT-C [facility] Start: 12-07-2024 End: 12-07-2024 Patient encounter procedure Lenora FORMAN [facility] Work Phone: Start: 12-07-2024 End: 12-07-[address] Maribell Yang DO Work Phone: [facility] Start: 12-04-2024 End: 12-04-2024 Emergency department patient visit MEME GIMENEZ [facility] Start: 11-24-2024 End: 11-24-2024 ambulatory MARIBELL HARRISON [facility] Start: 11-19-2024 End: 11-19-[address] Maribell Yang DO [facility] Start: 11-19-2024 End: 11-19-[address] Maribell Yang DO -[facility] Work Phone: Start: 11-19-2024 End: 11-19-[address] Maribell Yang DO Work Phone: [facility] Start: 11-19-2024 End: 11-19-2024 ambulatory Maribell Yang Facility:[facility] Start: 11-09-[address] Tamara Yang DO Work Phone: [facility] Comment on above: EF 60-65% 09/29/24 OS U Start: 11-03-2024 ambulatory JANA SICKLE [facility] Start: 10-30-2024 End: 10-30-2024 Emergency department patient visit MEME GIMENEZ [facility] Emergency Department Start: 10-27-2024 End: 10-27-2024 Office outpatient visit 25 minutes Loyd Prado MD Work Phone: [facility] Comment on above: Obstipation (Primary Dx) Start: 10-27-2024 ambulatory JANA SICKLE Facility: [facility] Start: 10-27-2024 End: 10-27-2024 Follow-up encounter Loyd Prado MD Work Phone: [facility] Comment on above: Encounter for ultras ound to assess interval growth of fetus (Primary Dx); POTS (postural orthostatic tachycardia syndrome); Yola-Danlos syndrome type III; 27 weeks gestation of Start: 10-07-2024 End: 10-07-2024 Office outpatient visit 25 minutes Mary Guy [employer] Work Phone: [employer] [facility] Comment on above: POTS (postural ortho static tachycardia syndrome) (Primary Dx) Start: 10-07-2024 ambulatory LOYD PRADO Facility :[facility] Start: 09-29-2024 ambulatory LOYD PRADO Facility :[facility] Start: 09-29-2024 End: 09-29-2024 Subsequent hospital visit by physician Loyd Prado MD Work Phone: [facility] Comment on above: Arrived Start: 09-08-2024 Non-patient / Non-visit [facility] Work Phone: Start: 09-08-2024 End: 09-08-2024 [facility] Start: 09-08-2024 End: 09-08-2024 Subsequent hospital visit by physician Anne-Marie Bernstein MD Work Phone: [facility] Start: 09-01-2024 End: 09-01-2024 Office outpatient visit 25 minutes Loyd Prado MD Work Phone: [facility] Comment on above: POTS (postural ortho static tachycardia syndrome) (Primary Dx); Yola-Danlos syndrome type III Start: 09-01-2024 End: 09-01-2024 Patient encounter procedure Loyd Prado MD Work Phone: [facility] Comment on above: Encounter for anatomic survey (Primary Dx); Yola-Danlos syndrome; Encounter for screening for risk of pre-term labor; 19 weeks gestation of Start: 09-01-2024 ambulatory LOYD PRADO Facility :[facility] LOC Start: 07-07-2024 ambulatory JANA SANCHEZ [facility] Start: 05-26-2024 End: 05-26-2024 Office outpatient new 30 minutes Kai Wylie [employer]ALK TESTER[employer]PER[employer] [facility] Comment on above: Fatigue, unspecified type (Primary Dx); Positive urine test; Viral URI Start: 05-26-2024 ambulatory SELF SELF [facility] Start: 05-18-2024 ambulatory FORREST THAPA [facility] Start: 05-18-2024 ambulatory Jana Azalia Facility:[facility] Start: 04-19-2024 End: 04-19-2024 Office outpatient visit 15 minutes Lindsey Ritchie CHALK TESTER-[employer]PER[employer]OR [employer] Work Phone: [facility] Comment on above: Influenza (Primary D x); Cough, unspecified type Start: 04-19-[address] [facility] Start: 11-28-2023 End: 11-28-2023 Emergency department patient visit Meme Prasad MD Work Phone: [facility] Emergency Department Start: 09-15-2023 End: 09-15-2023 Emergency department patient visit Meme Gimenez [employer]PER[employer] Work Phone: [facility] Emergency Department Start: 07-23-2023 End: 07-23-2023 Emergency department patient visit Meme Gimenez [employer]ALK [employer]PER[employer] Work Phone: [facility] Emergency Department Start: 07-19-2023 End: 07-19-2023 Patient encounter status Jana Sanchez MD Work Phone: [facility] Start: 07-19-2023 End: 07-19-2023 Subsequent hospital visit by physician Jana Sanchez MD Work Phone: [facility] Comment on above: Pelvic pain in femal e Start: 04-04-2023 End: 04-04-2023 Emergency department patient visit Meme Gimenez CHALK TESTER[employer]PER[employer] Work Phone: [facility] Emergency Department Start: 04-02-2023 End: 04-06-2023 ambulatory [facility] Start: 01-18-2023 Documentation procedure Barney Gorman mm MA [facility] Start: 12-17-2022 Orders Only Yina Ahn ARNOLD Work Phone: [facility] Start: 12-14-2022 ambulatory [facility] Start: 11-13-2022 End: 11-17-2022 ambulatory Patti Song [facility] Start: 11-13-2022 End: 11-13-2022 Patient encounter procedure Sulema Lazar MD Work Phone: [facility] Comment on above: Tear of MCL (medial collateral ligament) of knee, right, initial encounter (Primary Dx); Instability of right patellofemoral joint; Yola-Danlos disease Start: 11-08-2022 End: 11-08-2022 Office outpatient visit 15 minutes Sulema Lazar MD Work Phone: [facility] [place] Comment on above: S/P knee surgery (Pr imary Dx) Start: 11-06-2022 End: 11-10-2022 ambulatory Patti Song [facility] Start: 11-06-2022 End: 11-06-2022 Patient encounter procedure Sulema Lazar MD Work Phone: [facility] Comment on above: Tear of MCL (medial collateral ligament) of knee, right, initial encounter (Primary Dx); Instability of right patellofemoral joint; Yola-Danlos disease Start: 11-03-2022 End: 11-03-2022 Emergency department patient visit HAL VELASQUEZ [facility] Start: 10-26-2022 End: 10-30-2022 ambulatory SULEMA LAZAR [facility] Start: 10-26-2022 End: 10-26-2022 ambulatory Natali Hope [facility] Start: 10-26-2022 End: 10-26-2022 Patient encounter procedure Sulema Lazar MD Work Phone: [facility] Comment on above: Tear of MCL (medial collateral ligament) of knee, right, initial encounter (Primary Dx); Instability of right patellofemoral joint; Yola-Danlos disease Start: 10-23-2022 End: 10-27-2022 ambulatory SULEMA L. [facility] Start: 10-19-2022 End: 10-23-2022 ambulatory SULEMA L. [facility] Start: 10-19-2022 End: 10-19-2022 ambulatory Sarah Mckeon [facility] Start: 10-19-2022 End: 10-19-2022 Patient encounter procedure Sulema Lazar MD Work Phone: [facility] Comment on above: Tear of MCL (medial collateral ligament) of knee, right, initial encounter (Primary Dx); Instability of right patellofemoral joint; Yola-Danlos disease Start: 10-16-2022 End: 10-20-2022 [facility] Start: 10-16-2022 End: 10-16-2022 ambulatory Patti Song [facility] Start: 10-16-2022 End: 10-16-2022 Patient encounter procedure Sulema Lazar MD Work Phone: [facility] Comment on above: Tear of MCL (medial collateral ligament) of knee, right, initial encounter (Primary Dx); Instability of right patellofemoral joint; Yola-Danlos disease Start: 10-12-2022 End: 10-16-2022 ambulatory SULEMA L. [facility] Start: 10-12-2022 End: 10-12-2022 ambulatory Patti Song [facility] Start: 10-12-2022 End: 10-12-2022 Patient encounter procedure Sulema Lazar MD Work Phone: [facility] Comment on above: Tear of MCL (medial collateral ligament) of knee, right, initial encounter (Primary Dx); Instability of right patellofemoral joint; Yola-Danlos disease Start: 10-09-2022 End: 10-13-2022 ambulatory [facility] Start: 10-05-2022 End: 10-09-2022 ambulatory [facility] Start: 10-02-2022 End: 10-06-2022 ambulatory [facility] Start: 10-02-2022 End: 10-02-2022 ambulatory Patti Song [facility] Start: 10-02-2022 End: 10-02-2022 Patient encounter procedure Sulema Lazar MD Work Phone: [facility] Comment on above: Tear of MCL (medial collateral ligament) of knee, right, initial encounter (Primary Dx); Instability of right patellofemoral joint; Yola-Danlos disease Start: 09-28-2022 End: 10-02-2022 [facility] Start: 09-28-2022 End: 09-28-2022 [facility] Start: 09-28-2022 End: 09-28-2022 Patient encounter procedure Sulema Lazar MD Work Phone: [facility] Comment on above: Tear of MCL (medial collateral ligament) of knee, right, initial encounter (Primary Dx); Instability of right patellofemoral joint; Yola-Danlos disease Start: 09-27-2022 End: 09-27-2022 Postop follow up visit related to original px Kevin CORLEY Work Phone: Sports Medicine [facility] [place] Comment on above: S/P knee surgery (Pr imary Dx); Patellar instability of right knee Start: 09-26-2022 End: 09-30-2022 [facility] Start: 09-24-2022 End: 09-28-2022 ambulatory [facility] Start: 09-24-2022 End: 09-24-2022 ambulatory Kimo [facility] Start: 09-24-2022 End: 09-24-2022 Patient encounter procedure Sulema Lazar MD Work Phone: [facility] Comment on above: Tear of MCL (medial collateral ligament) of knee, right, initial encounter (Primary Dx); Instability of right patellofemoral joint; Yola-Danlos disease Start: 09-21-2022 End: 09-25-2022 ambulatory SULEMA L. [facility] Start: 09-19-2022 End: 09-23-2022 ambulatory [facility] Hall[facility] Start: 09-19-2022 End: 09-19-2022 ambulatory Patti Song [facility] Start: 09-19-2022 End: 09-19-2022 Patient encounter procedure Sulema Lazar MD Work Phone: [facility] Comment on above: Tear of MCL (medial collateral ligament) of knee, right, initial encounter (Primary Dx); Instability of right patellofemoral joint; Yola-Danlos disease Start: 09-17-2022 End: 09-21-2022 [facility] Start: 09-17-2022 End: 09-17-2022 ambulatory Natali Jayy [facility] Start: 09-17-2022 End: 09-17-2022 Patient encounter procedure Sulema Lazar MD Work Phone: [facility] Comment on above: Tear of MCL (medial collateral ligament) of knee, right, initial encounter (Primary Dx); Instability of right patellofemoral joint; Yola-Danlos disease Start: 09-14-2022 End: 09-18-2022 [facility] Start: 09-13-2022 End: 09-13-2022 Subsequent hospital visit by physician Kaylynn Parish CHALK TESTER-SUPERVISOR [employer] Work Phone: [facility] [place] Comment on above: Arrived Start: 09-13-2022 End: 09-13-2022 Office outpatient visit 25 minutes Sahil Brunson MD Work Phone: Division of Surgical Oncology Comment on above: 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[address], left (Primary Dx) Start: 09-12-2022 End: 09-16-2022 ambulatory SULEMA Sterling [facility] Start: 09-12-2022 End: 09-12-2022 ambulatory [facility] Start: 09-12-2022 End: 09-12-2022 Patient encounter procedure Sulema Lazar MD Work Phone: [facility] Comment on above: Tear of MCL (medial collateral ligament) of knee, right, initial encounter (Primary Dx); Instability of right patellofemoral joint; Yola-Danlos disease Start: 09-10-2022 End: 09-14-2022 ambulatory SULEMA Sterling [facility] Start: 09-10-2022 End: 09-10-2022 ambulatory Susan Almonte [facility] Start: 09-10-2022 End: 09-10-2022 Patient encounter procedure Sulema Lazar MD Work Phone: [facility] Comment on above: Tear of MCL (medial collateral ligament) of knee, right, initial encounter (Primary Dx); Instability of right patellofemoral joint; Yola-Danlos disease Start: 09-07-2022 End: 09-11-2022 ambulatory [facility] Start: 09-07-2022 End: 09-07-2022 ambulatory [facility] Start: 09-07-2022 End: 09-07-2022 Patient encounter procedure Sulema Lazar MD Work Phone: [facility] Comment on above: Tear of MCL (medial collateral ligament) of knee, right, initial encounter (Primary Dx); Instability of right patellofemoral joint; Yola-Danlos disease Start: 09-05-2022 End: 09-09-2022 ambulatory SULEMA Sterling [facility] Start: 09-05-2022 End: 09-05-2022 ambulatory Natali [facility] Start: 09-05-2022 End: 09-05-2022 Patient encounter procedure Sulema Lazar MD Work Phone: [facility] Comment on above: Tear of MCL (medial collateral ligament) of knee, right, initial encounter (Primary Dx); Instability of right patellofemoral joint; Yola-Danlos disease Start: 09-03-2022 End: 09-07-2022 ambulatory SULEMA L. [facility] Start: 09-03-2022 End: 09-03-2022 ambulatory [facility] Start: 09-03-2022 End: 09-03-2022 Patient encounter procedure Sulema Lazar MD Work Phone: [facility] Comment on above: Tear of MCL (medial collateral ligament) of knee, right, initial encounter (Primary Dx); Instability of right patellofemoral joint; Yola-Danlos disease Start: 08-31-2022 End: 09-04-[facility] Start: 08-31-2022 End: 08-31-2022 ambulatory [facility] Start: 08-31-2022 End: 08-31-2022 Patient encounter procedure Sulema Lazar MD Work Phone: [facility] Comment on above: Tear of MCL (medial collateral ligament) of knee, right, initial encounter (Primary Dx); Instability of right patellofemoral joint; Yola-Danlos disease Start: 08-29-2022 End: 09-02-2022 [facility] Start: 08-29-2022 End: 08-29-2022 ambulatory Kimo Rojo [facility] Start: 08-29-2022 End: 08-29-2022 Patient encounter procedure Sulema Lazar MD Work Phone: [facility] Comment on above: Tear of MCL (medial collateral ligament) of knee, right, initial encounter (Primary Dx); S/P reconstruction of ligament of knee; Instability of right patellofemoral joint; Yola-Danlos disease Start: 08-23-2022 End: 08-23-2022 Postop follow up visit related to original px Kevin CORLEY Work Phone: Sports Medicine [facility] Comment on above: S/P knee surgery (Pr imary Dx) Start: 08-23-2022 End: 08-23-2022 Subsequent hospital visit by physician Kevin CORLEY Work Phone: Imaging [facility] Comment on above: Arrived Start: 08-06-2022 End: 08-06-2022 Subsequent hospital visit by physician Sulema Lazar MD Work Phone: Outpatient Surgery [facility] Comment on above: Patellar instability of right knee Start: 08-02-2022 End: 08-02-2022 ambulatory CANDACE TRAMMELL [facility] Start: 08-02-2022 End: 08-02-2022 Patient encounter procedure Candace Trammell MD Work Phone: [facility] Comment on above: Right ureteral stone [N20.1 (ICD-10-CM)] (Primary Dx) Start: 07-26-2022 End: 07-26-2022 ambulatory [facility] Start: 07-24-2022 End: 07-24-2022 ambulatory [facility] Ambulatory Start: 07-24-2022 Admission to [facility] Work Phone: [facility] Comment on above: Right ureteral stone (Primary Dx) Start: 07-18-2022 End: 07-18-2022 Emergency department patient visit PEDRO SIDDIQUI [facility] Start: 07-12-2022 End: 07-12-2022 Office outpatient visit 25 minutes Sulema Lazar MD Work Phone: Sports Medicine [facility] Comment on above: Patellar instability of right knee (Primary Dx) Start: 07-05-2022 ambulatory BARNEY JACQUES [facility] Ambulatory Start: 07-05-2022 End: 07-05-2022 Subsequent hospital visit by physician Sulema Lazar MD Work Phone: Imaging [facility] Comment on above: Arrived Start: 06-14-2022 End: 06-14-2022 Office outpatient new 45 minutes Sulema Lazar MD Work Phone: Sports Medicine [facility] Comment on above: Right knee pain, uns pecified chronicity (Primary Dx) Start: 06-14-2022 End: 06-14-2022 Subsequent hospital visit by physician Sulema Lazar MD Work Phone: Imaging [facility] Comment on above: Arrived Start: 05-24-2022 End: 05-25-2022 ambulatory MEME GIMENEZ [facility] Start: 05-22-2022 ambulatory EUSEBIO SOLORIO [facility] Ambulatory Start: 05-14-2022 End: 05-14-2022 Emergency department patient visit Roosevelt Gonzalez MD Work Phone: [facility] Emergency Department Start: 05-04-2022 Coordination of care plan Fabiola Lamar RN Patient Navigator Start: 05-01-2022 End: 05-01-2022 ambulatory [facility] Start: 05-01-2022 End: 05-01-2022 Office outpatient visit 10 minutes Dallin More MD Work Phone: [facility] Comment on above: Breast fibroadenoma, left (Primary Dx); Pseudoangiomatous stromal hyperplasia of breast Start: 04-25-2022 Coordination of care plan Fabiola Lamar RN Patient Navigator Start: 04-25-2022 End: 04-26-2022 ambulatory MEME GIMENEZ [facility] Start: 04-23-2022 End: 04-23-2022 ambulatory [facility] Ambulatory Start: 04-23-2022 End: 04-23-2022 Office outpatient new 30 minutes Meme Gimenez CNP Work Phone: [facility] Comment on above: Chronic constipation (Primary Dx); Bloating; Nausea; Abdominal pain, unspecified abdominal location; Early satiety Start: 04-17-2022 Coordination of care plan Fabiola Lamar RN Patient Navigator Start: 04-17-2022 End: 04-17-2022 ambulatory [facility] Start: 04-17-2022 End: 04-17-2022 Office outpatient new 30 minutes Meme Reid Pernell [employer]PERVISOR [employer] Work Phone: [facility] Comment on above: Abnormal finding on imaging (Primary Dx); Breast lump in upper outer quadrant; Family history of breast cancer Start: 04-03-2022 End: 04-04-2022 ambulatory [facility] Start: 01-24-2022 End: 01-25-2022 ambulatory [facility] Start: 01-04-2022 End: 01-04-2022 Emergency department patient visit Meme Gimenez CHALK TESTER-SUPERVISOR [employer] Work Phone: [facility] Emergency Department Start: 01-03-2022 End: 01-03-2022 Subsequent hospital visit by physician Qiana Torre PA-C Work Phone: [facility] Clinical Advisor Comment on above: Arrived Start: 01-03-2022 End: 01-03-2022 Emergency department patient visit Meme Gimenez CHALK TE[employer]-SUPERVISOR [employer] Work Phone: [facility] Emergency Department Start: 12-05-2021 End: 12-05-2021 [facility] Start: 12-05-2021 End: 12-05-2021 Office outpatient new 30 minutes Meme Reid Pernell [employer]PERVISOR [employer] Work Phone: [facility] Comment on above: Hematuria, unspecifi ed type (Primary Dx); Recurrent kidney stones Start: 07-27-2021 Orders Only Sheba sainz FURNITURE ASSOCIATE [facility] Comment on above: Tear of right acetab ular labrum, initial encounter (Primary Dx); Tear of left acetabular labrum, subsequent encounter Start: 07-27-2021 End: 07-27-2021 Office outpatient visit 10 minutes Mary Miguel MD Work Phone: [facility] Comment on above: Tear of right acetab ular labrum, initial encounter (Primary Dx); Instability of right patellofemoral joint Start: 02-22-2021 Documentation procedure Lauren Nuñez LPN [facility] Start: 02-07-2021 End: 02-07-2021 Office outpatient visit 15 minutes Milton Leos MD Work Phone: [facility] Comment on above: Sore throat (Primary Dx); Viral syndrome Start: 12-29-2020 Orders Only Mary Miguel MD Work Phone: [facility] Comment on above: Tear of right acetab ular labrum, initial encounter (Primary Dx) Start: 12-29-2020 End: 12-29-2020 Office outpatient visit 10 minutes Mary Miguel MD Work Phone: [facility] Comment on above: Instability of right patellofemoral joint (Primary Dx); Yola-Danlos disease Start: 09-29-2020 End: 09-29-2020 Office outpatient visit 10 minutes Mary Miguel MD Work Phone: [facility] Comment on above: S/P right knee arthr oscopy (Primary Dx); Yola-Danlos disease Start: 08-08-2020 End: 08-08-2020 Clinical Support Encounter Milton Leos MD Work Phone: [facility] Comment on above: Urinary pain (Primar y Dx) Start: 06-17-2020 End: 06-17-2020 Emergency department patient visit Pedro Siddiqui MD Work Phone: [facility] Emergency Department Start: 05-17-2020 End: 05-18-2020 Emergency department patient visit Richar Hurtado Work Phone: [facility] Emergency Department Start: 04-29-2020 End: 04-29-2020 Patient encounter procedure Mary Miguel Work Phone: [facility] Comment on above: Instability of right patellofemoral joint Start: 04-22-2020 End: 04-22-2020 Patient encounter procedure Mary Miguel Work Phone: [facility] Comment on above: Instability of right patellofemoral joint Start: 04-15-2020 End: 04-15-2020 Patient encounter procedure Mary Chávezhard Work Phone: [facility] Comment on above: Instability of right patellofemoral joint Start: 04-01-2020 End: 04-01-2020 Patient encounter procedure Mary Miguel Work Phone: [facility] Comment on above: Instability of right patellofemoral joint; Tear of MCL (medial collateral ligament) of knee, right, initial encounter Start: 03-31-2020 End: 03-31-2020 Office outpatient visit 10 minutes Mary Malave Cuco Work Phone: [facility] Comment on above: S/P right knee arthr oscopy (Primary Dx) Start: 03-25-2020 End: 03-25-2020 Patient encounter procedure Mary Malave Cuco Work Phone: [facility] Comment on above: Instability of right patellofemoral joint Start: 03-22-2020 End: 03-22-2020 Patient encounter procedure Mary Miguel Work Phone: [facility] Comment on above: Instability of right patellofemoral joint Start: 03-18-2020 End: 03-18-2020 Patient encounter procedure Mary Miguel Work Phone: [facility] Comment on above: Instability of right patellofemoral joint Start: 03-15-2020 End: 03-15-2020 Clinical Support Encounter Milton Dafne Work Phone: [facility] Comment on above: Hematuria, unspecifi ed type (Primary Dx) Start: 03-15-2020 End: 03-15-2020 Patient encounter procedure Mary Malave Cuco Work Phone: [facility] Comment on above: Instability of right patellofemoral joint Start: 03-11-2020 End: 03-11-2020 Patient encounter procedure Mary Malave Cuco Work Phone: [facility] Comment on above: Instability of right patellofemoral joint Start: 03-08-2020 End: 03-08-2020 Patient encounter procedure Mary Miguel Work Phone: [facility] Comment on above: Instability of right patellofemoral joint Start: 02-25-2020 End: 02-25-2020 Patient encounter procedure Mary Chávezhard Work Phone: [facility] Comment on above: Instability of right patellofemoral joint Start: 02-23-2020 End: 02-23-2020 Patient encounter procedure Mary Chávezhard Work Phone: [facility] Comment on above: Instability of right patellofemoral joint Start: 02-15-2020 End: 02-15-2020 Clinical Support Encounter Milton Martinezzger Work Phone: [facility] Comment on above: Dysuria (Primary Dx) Start: 02-03-2020 End: 02-03-2020 Clinical Support Encounter Milton Martinezzger Work Phone: [facility] Comment on above: Dysuria (Primary Dx) ; Urinary pain Start: 02-02-2020 End: 02-02-2020 Patient encounter procedure Mary Miguel Work Phone: [facility] Comment on above: Instability of right patellofemoral joint Start: 01-22-2020 End: 01-22-2020 Patient encounter procedure Mary Chávezhard Work Phone: [facility] Comment on above: Instability of right patellofemoral joint Start: 01-19-2020 End: 01-19-2020 Patient encounter procedure Mary Malave Cuco Work Phone: [facility] Comment on above: Instability of right patellofemoral joint Start: 01-15-2020 End: 01-15-2020 Patient encounter procedure Mary Malave Cuco Work Phone: [facility] Comment on above: Instability of right patellofemoral joint Start: 01-12-2020 End: 01-12-2020 Patient encounter procedure Mary Miguel Work Phone: [facility] Comment on above: Instability of right patellofemoral joint Start: 01-08-2020 End: 01-08-2020 Patient encounter procedure Mary Miguel Work Phone: [facility] Comment on above: Instability of right patellofemoral joint Start: 01-05-2020 End: 01-05-2020 Patient encounter procedure Mary Miguel Work Phone: [facility] Comment on above: Instability of right patellofemoral joint Start: 01-01-2020 End: 01-01-2020 Patient encounter procedure Mary Miguel Work Phone: [facility] Comment on above: Instability of right patellofemoral joint Start: 12-31-2019 End: 12-31-2019 Patient encounter procedure Mary Miguel Work Phone: [facility] Comment on above: Instability of right patellofemoral joint Start: 12-17-2019 End: 12-17-2019 Periodic preventive med est patient 12-17yrs Milton Leos Work Phone: [facility] Comment on above: Routine screening fo r STI (sexually transmitted infection) (Primary Dx); Encounter for routine child health examination without abnormal findings; Need for vaccination Start: 12-14-2019 End: 12-14-2019 Patient encounter procedure Mary Miguel Work Phone: [facility] Comment on above: Instability of right patellofemoral joint Start: 12-11-2019 End: 12-11-2019 Patient encounter procedure Mary Miguel Work Phone: [facility] Comment on above: Instability of right patellofemoral joint Start: 12-10-2019 End: 12-10-2019 Patient encounter procedure Mary Miguel Work Phone: [facility] Comment on above: Instability of right patellofemoral joint Start: 12-07-2019 End: 12-07-2019 Patient encounter procedure Mary Miguel Work Phone: [facility] Comment on above: Instability of right patellofemoral joint Start: 12-03-2019 End: 12-03-2019 Patient encounter procedure Mary Miguel Work Phone: [facility] Comment on above: Instability of right patellofemoral joint Start: 11-30-2019 End: 11-30-2019 Patient encounter procedure Mary Miguel Work Phone: [facility] Comment on above: Instability of right patellofemoral joint Start: 11-27-2019 End: 11-27-2019 Patient encounter procedure Mary Miguel Work Phone: [facility] Comment on above: Instability of right patellofemoral joint Start: 11-26-2019 End: 11-26-2019 Postop follow up visit related to original px Mary Miguel Work Phone: [facility] Comment on above: S/P right knee arthr oscopy (Primary Dx); Instability of right patellofemoral joint; Yola-Danlos disease Start: 11-26-2019 End: 11-26-2019 Patient encounter procedure Mary Miguel Work Phone: [facility] Comment on above: Instability of right patellofemoral joint Start: 11-20-2019 End: 11-20-2019 Patient encounter procedure Mary Miguel Work Phone: [facility] Comment on above: Instability of right patellofemoral joint Start: 11-19-2019 End: 11-19-2019 Patient encounter procedure Mary Miguel Work Phone: [facility] Comment on above: Instability of right patellofemoral joint Start: 11-16-2019 End: 11-16-2019 Patient encounter procedure Mary Chávezhard Work Phone: [facility] Comment on above: Instability of right patellofemoral joint Start: 11-12-2019 End: 11-12-2019 Patient encounter procedure Mary Ananda Miguel Work Phone: [facility] Comment on above: Instability of right patellofemoral joint Start: 11-10-2019 End: 11-10-2019 Patient encounter procedure Mary Chávezhard Work Phone: [facility] Comment on above: Instability of right patellofemoral joint Start: 11-05-2019 End: 11-05-2019 Patient encounter procedure Mary Malave Cuco Work Phone: [facility] Comment on above: Instability of right patellofemoral joint Start: 11-02-2019 End: 11-02-2019 Patient encounter procedure Mary Chávezhard Work Phone: [facility] Comment on above: Instability of right patellofemoral joint Start: 10-28-2019 End: 10-28-2019 Postop follow up visit related to original px Mary Ananda Miguel Work Phone: [facility] Comment on above: Instability of right patellofemoral joint (Primary Dx) Start: 10-14-2019 End: 10-14-2019 Subsequent hospital visit by physician Mary Miguel Work Phone: [facility] Comment on above: S/P arthroscopic valentina jeremy of right knee (Primary Dx); Instability of right patellofemoral joint; Yola-Danlos disease; Instability of right patellofemoral joint; Yola-Danlos disease Start: 10-11-2019 End: 10-11-2019 Patient encounter procedure MARY MIGUEL [facility] Start: 09-18-2019 End: 09-18-2019 Office outpatient new 20 minutes Yumiko Hancock Work Phone: [facility] Comment on above: Instability of right patellofemoral joint Start: 09-02-2019 End: 09-02-2019 Office outpatient new 20 minutes Yumiko Hancock Work Phone: [facility] Comment on above: Yola-Danlos diseas e (Primary Dx); Instability of right patellofemoral joint; Chondromalacia of knee, right Start: 06-11-2019 End: 06-11-2019 Clinical Support Encounter Milton Leos Work Phone: [facility] Comment on above: Dysuria (Primary Dx) Start: 05-29-2019 End: 05-29-2019 Periodic preventive med est patient 12-17yrs Milton Leos Work Phone: [facility] Comment on above: Encounter for routin e child health examination without abnormal findings (Primary Dx); Need for vaccination Start: 05-19-2019 End: 05-20-2019 Emergency department patient visit John Ordaz Work Phone: [facility] Comment on above: Viral gastroenteriti s (Primary Dx) Start: 04-20-2019 End: 04-20-2019 Subsequent hospital visit by physician Milton Leso Work Phone: [facility] Comment on above: Arrived Start: 04-06-2019 End: 04-06-2019 Office outpatient visit 25 minutes Milton Leos Work Phone: [facility] Comment on above: Chronic daily headac he (Primary Dx); Chronic fatigue; Intractable chronic paroxysmal hemicrania; Yola-Danlos syndrome; Fibromyalgia Start: 03-23-2019 End: 03-23-2019 Emergency department patient visit Pedro Siddiqui Work Phone: [facility] Comment on above: Feeling tired (Prima ry Dx); Nonintractable headache, unspecified chronicity pattern, unspecified headache type; Pharyngitis, unspecified etiology Start: 12-14-2018 End: 12-15-2018 Emergency department patient visit Eun Cadena Work Phone: [facility] Comment on above: Abdominal pain in fe male patient (Primary Dx); Bloody stools Start: 11-24-2018 End: 11-24-2018 [facility] Comment on above: Results Start: 11-21-2018 End: 11-21-2018 Subsequent hospital visit by physician Milton Leos Work Phone: [facility] Comment on above: Arrived Start: 11-18-2018 End: 11-18-2018 Telephone encounter Siena Brownxler [facility] Comment on above: Results Start: 11-15-2018 End: 11-15-2018 Subsequent hospital visit by physician Milton Dafne Work Phone: [facility] Comment on above: Arrived Start: 11-13-2018 End: 11-13-2018 Letter encounter Milton Martinezzger Work Phone: [facility] Start: 11-13-2018 End: 11-13-2018 Office outpatient visit 25 minutes Milton Leos Work Phone: [facility] Comment on above: Yola-Danlos syndro me (Primary Dx); Instability of shoulder joint, unspecified laterality; Recurrent dislocation, left shoulder; Fibromyalgia; Trapezius muscle spasm; Anxiety Start: 11-07-2018 End: 11-07-2018 Letter encounter Provider Trey [facility] Start: 11-07-2018 End: 11-07-2018 Emergency department patient visit Milton Martinezzger [facility] Start: 10-29-2018 End: 10-29-2018 Letter encounter Milton Leos Work Phone: [facility] Start: 10-20-2018 End: 10-20-2018 Telephone encounter Annmarie [facility] Comment on above: Other Start: 09-22-2018 End: 09-22-2018 Emergency department patient visit Fabien Huitron Work Phone: [facility] Comment on above: Oral aphthous ulcer (Primary Dx) Start: 08-18-2018 End: 08-18-2018 Telephone encounter Mliton Leos Work Phone: [facility] Comment on above: Results Start: 07-15-2018 End: 07-15-2018 Telephone encounter Annmarie Waldosocorro Macdonald [facility]ock [facility] Comment on above: Order Request Start: 07-01-2018 End: 07-01-2018 Patient encounter procedure Alexis Villarreal Chester Work Phone: [facility] Comment on above: Knee meniscus pain, right; Tear of MCL (medial collateral ligament) of knee, right, initial encounter Start: 06-22-2018 End: 06-22-2018 Emergency department patient visit Pedro Baxter Chen Work Phone: [facility] Comment on above: Intractable vomiting with nausea, unspecified vomiting type (Primary Dx) Start: 06-18-2018 End: 06-18-2018 Documentation procedure Nury Agudelo [facility] Start: 06-16-2018 End: 06-16-2018 Emergency department patient visit Fabien Leoncio Arriagaer Work Phone: [facility] Comment on above: Non-intractable vomi ting with nausea, unspecified vomiting type (Primary Dx); Dehydration Start: 06-16-2018 End: 06-16-2018 [facility]: Referral Start: 06-12-2018 End: 06-12-2018 Telephone encounter Annmarie [facility] Comment on above: Nausea Start: 06-09-2018 End: 06-09-2018 Patient encounter procedure Other Other [facility] Start: 06-09-2018 End: 06-09-2018 Office outpatient new 20 minutes Alexis Gulshanarjun Chester Work Phone: [facility] Comment on above: Knee meniscus pain, right (Primary Dx); Tear of MCL (medial collateral ligament) of knee, right, initial encounter Start: 04-11-2018 End: 04-11-2018 Letter encounter Milton Leos Work Phone: [facility] Start: 04-11-2018 End: 04-11-2018 Patient encounter procedure Milton Leos Work Phone: [facility] Comment on above: Encounter for routin e child health examination without abnormal findings (Primary Dx) Start: 02-16-2018 End: 02-16-2018 Emergency department patient visit Fabien Martini Work Phone: [facility] Start: 02-07-2018 End: 02-07-2018 Patient encounter procedure Annmarie [facility] Comment on above: Anxiety Start: 02-07-2017 End: 02-07-2017 Ambulatory Milton Leos Work Phone: [facility] Start: 01-28-2017 End: 01-28-2017 Ambulatory Milton Leos Work Phone: [facility] Start: 10-16-2016 End: 10-16-2016 Patient encounter procedure Milton Leos Work Phone: [facility] Start: 10-01-2016 End: 10-02-2016 Ambulatory MILTON LEOS [facility] Start: 10-01-2016 End: 06-01-2019 Patient encounter status Corona Malcom Martinezzger & Kun Meredith [facility] Procedures Date Procedure Procedure Detail Performing Clinician Start: 11-19-[address] Maribell aYng DO Work Phone: Start: 10-27-2024 Us preg [...] Phone: Start: 05-26-2024 Iaadiadoo influenza Kai Wylie [employer] Work Phone: Start: 05-26-2024 SARS-CoV-2 (COVID-19) RNA [Presence] in Unspecified specimen by GISSELLE with probe detection Kai Wylie [employer] Work Phone: Start: 05-26-2024 Urine test visual color cmprsn meths Kai Wylie [employer] Work Phone: Start: 04-19-2024 Iaadiadoo influenza Lindsey Ritchie [employer] Work Phone: Start: 04-19-2024 SARS-CoV-2 (COVID-19) RNA [Presence] in Unspecified specimen by GISSELLE with probe detection Lindsey Ritchie [employer] Work Phone: Start: 11-28-2023 Ecg routine ecg w/least 12 lds w/i&r Meme Prasad MD Work Phone: Start: 11-28-2023 Radiologic exam chest single view Meme Prasad MD Work Phone: Start: 09-15-2023 Gonadotropin chorionic qualitative Jazzmine Elza Forrest [employer] Work Phone: Start: 09-15-2023 Urinalysis microscopic only Jazzmine M Beverley ol [employer] Work Phone: Start: 09-15-2023 Urinalysis, reagent strip without microscopy Jazzmine Elza Forrest [employer] Work Phone: Start: 07-23-2023 Ct abdomen & [...] 07-19-2023 Urine test visual color cmprsn meths Jana Sanchez MD Work Phone: Start: 04-04-2023 Us pelvic nonobstetric real-time image complete [employer] PA-C Work Phone: Start: 04-04-2023 Culture bacterial quanttative colony count urine Qiana Torre PA-C Work Phone: Start: 04-04-2023 Urinalysis, reagent strip without microscopy Qiana [employer] PA-C Work Phone: Start: 04-04-2023 End: 04-04-2023 Albumin serum plasma/whole blood [employer] Work Phone: Start: 04-04-2023 Complete blood count with white cell differential, automated [employer] Work Phone: Start: 11-12-2022 Adult depression screening assessment Patti Song PT Start: 09-13-2022 Us breast uni real time with image limited Kaylynn Parish [employer] Work Phone: Start: 08-23-2022 Radiologic examination knee 1/2 views Kevin Luna PAC Work Phone: Start: 07-05-2022 Mri any jt lower extrem w/o contrast matrl Sulema Lazar MD Work Phone: Start: 06-14-2022 Radiologic examination knee 3 views Sulema Lazar MD Work Phone: Start: 05-14-2022 Radiologic examination knee 3 views Roosevelt Gonzalez MD Work Phone: Start: 01-04-2022 Assay of thyroid stimulating hormone tsh Jazzmine Clayton [employer] Work Phone: Start: 01-04-2022 Complete blood count with white cell differential, automated Jazzmine Clayton APRN-SUPERVISOR [employer] Work Phone: Start: 01-04-2022 Radiologic exam chest 2 views Jazzmine Clayton [employer] Work Phone: Start: 01-04-2022 Ecg routine ecg [...] dip stick/tablet rgnt auto w/o microscopy Milton [place] Work Phone: Start: 05-19-2019 Basic metabolic panel [...] count with white cell differential, manual Pedro Saihl Chen Work Phone: Start: 03-23-2019 Comprehensive metabolic [...] Eun Cadena Work Phone: Start: 12-15-2018 Urinalysis Eun Cadena Work Phone: Start: 11-21-2018 MRI of [...] count with white cell differential, manual Fabien uHitron Work Phone: Start: 06-16-2018 TESFAYE TOP Fabien [...] Performed By: #### CD #### Performed at [address] [place] [address] Start: 02-16-2018 End: 02-16-2018 Diagnostic radiography of [...] 05-27-2029 Tetanus, diphtheria and acellular pertussis vaccination [facility] Start: 05-27-2029 Vaccination for diphtheria, pertussis, and tetanus DTAP Vaccines (5 - Tdap) [facility] Start: 01-02-2026 DTAP/TDAP/TD VACCINE (7 - Td or Tdap) DTAP/TDAP/TD VACCINE (7 - Td or Tdap) [facility] Start: 01-02-2026 DTAP/TDAP/TD VACCINE (7 - Td) DTAP/TDAP/TD VACCINE (7 - Td) [facility] Start: 01-02-2026 Tetanus vaccination [facility] Start: 01-02-2026 Tetanus, diphtheria and acellular pertussis vaccination DTAP VACCINES (7 - Tdap) [facility] Start: 01-02-2026 Vaccination for diphtheria, pertussis, and tetanus DTAP Vaccines (7 - Td or Tdap) [facility] Start: 12-08-2024 End: 12-08-2024 Follow-up encounter [facility] Start: 12-01-2024 RSV VACCINE (1 - Risk 1-dose series) RSV VACCINE (1 - Risk 1-dose series) [facility] Start: 11-02-2024 Influenza vaccination INFLUENZA VACCINE (#1) [facility] Start: 10-27-2024 End: 10-27-2024 Follow-up encounter [facility] Start: 10-27-2024 End: 10-27-2024 Follow-up encounter [facility] Start: 10-07-2024 End: 10-07-2024 Patient encounter procedure 10/07/2024 11:30 AM EDT Office Visit [facility] [address] [place] [address] [facility] Start: 09-29-2024 End: 09-29-2024 Patient encounter procedure 09/29/2024 10:00 AM EDT Appointment [facility] [address] [place] [address] Loyd Prado MD [address] [facility] 4[address] [place] [phone] [facility] Start: 09-01-2024 End: 09-01-2025 Echocardiography ECHOCARDIOGRAM Echocardiography Routine Yola-Danlos syndrome type III Expected: 09/01/2024, Expires: 09/01/2025 [facility] Comment on above: Expected: 09/01/2024, Expires: Start: 09-01-2024 End: 09-01-2025 OB ultrasound panel US OB GROWTH/DATING > 14WEEKS Imaging Routine POTS (postural orthostatic tachycardia syndrome) Yola-Danlos syndrome type III Expected: 09/01/2024, Expires: 09/01/2025 [facility] Comment on above: Expected: 09/01/2024, Expires: Start: 2024 Screening for malignant neoplasm of cervix CERVICAL CANCER SCREENING DISCUSSION [facility] Start: 11-13-2023 Depression screening using PHQ-9 (Patient Health Questionnaire 9) score Depression Screening (PHQ-2/9) [facility] Start: 11-03-2023 COVID-19 VACCINE ( season) COVID-19 VACCINE ( season) [facility] Start: 11-03-2023 COVID-19 VACCINE ( season) COVID-19 VACCINE ( season) [facility] Start: 11-03-2023 COVID-19 VACCINE ( season) COVID-19 VACCINE () [facility] Start: 11-03-[address] [facility] Start: 07-19-2023 End: 07-19-2023 Laps fulg/exc ovary viscera/peritoneal surface EXCISION/FULGURATION LESION OVARY/PELVIC VISERA/PERITONEAL SURFACE LAPAROSCOPIC Pelvic pain in female Abnormal uterine bleeding 07/19/2023 11:55 AM EDT [facility] Start: 07-09-2023 End: 07-09-2023 Patient encounter procedure 07/09/2023 9:00 AM EDT Office Visit Gastroenterology and Hepatology [facility] [address] [phone] Laureen Hopkins MD [address] [phone] Gastroenterology [facility] Start: 02-01-2023 End: 02-01-2023 Patient encounter procedure 02/01/2023 10:[address] EST [address] [facility] [address] [place] [address] Yina Ahn, ARNOLD [address] [place] [address] [facility] Start: 01-18-2023 End: 01-18-2023 Admission to same day surgery center 01/18/2023 8:50 AM EST - 01/18/2023 9:20 AM EST Surgery [facility] [address] [place] [address] Nancy Edwards MD [address] [place] [address] COLONOSCOPY [facility] Comment on above: COLONOSCOPY Start: 01-18-2023 End: 01-18-2023 Colonoscopy COLONOSCOPY Blood in the stool Generalized abdominal pain 01/18/2023 8:50 AM EST [facility] Start: 01-18-2023 Subsequent hospital visit by physician 01/18/2023 8:50 AM EST Hospital Encounter [facility] [address] [place] [address] Nancy Edwards MD [address] [place] [address] [facility] Start: 12-20-2022 End: 12-20-2022 Patient encounter procedure 12/20/2022 11:00 AM EDT Office Visit Sports Medicine [facility] [address] [address] Sulema Lazar MD [address] [facility] [address] [place] [address] Sports Medicine [facility] Start: 12-13-2022 End: 12-13-2022 Patient encounter procedure 12/13/2022 4:00 PM EDT Office Visit Division of Surgical Oncology [address] [facility] [address], [address] [place] [address] Sahil Brunson III, MD [address] [facility] [address], [address] [place] [address] Division of Surgical Oncology Start: 11-14-2022 Depression screening using PHQ-9 (Patient Health Questionnaire 9) score Depression Screening (PHQ-2/9) [facility] Start: 11-13-2022 End: 11-13-2022 Patient encounter procedure 11/13/2022 2:00 PM EDT [facility] [address] [place] [address] Sulema Lazar MD [address] [place], [place] [phone] Patti Song, PT Discharge Disposition: Home [facility] Start: 11-08-2022 End: 11-08-2022 Patient encounter procedure 11/08/2022 11:15 AM EDT Office Visit Sports Medicine [facility] [address] [place] [phone] Sulema aLzar MD [address] [facility] [address] [place] [address] Sports Medicine [facility] Start: 11-02-2022 COVID-19 VACCINE () COVID-19 VACCINE () [facility] Start: 11-02-2022 Influenza vaccination [facility] Start: 11-02-2022 End: 11-02-2022 Patient encounter procedure [facility] Start: 10-30-2022 End: 10-30-2022 Patient encounter procedure [facility] Start: 10-26-2022 End: 10-26-2022 Patient encounter procedure 10/26/2022 9:30 AM EDT Treatment [facility] [address] [place] [address] Sulema Lazar MD [address] [place] [address] Sarah Mckeon, [facility] Start: 10-23-2022 End: 10-23-2022 Patient encounter procedure 10/23/2022 9:30 AM EDT Treatment [facility] [address] [place] [address] Sulema Lazar MD [address] [place], [place] [phone] Mary Manriquez, [facility] Start: 10-19-2022 End: 10-19-2022 Patient encounter procedure 10/19/2022 10:15 AM EDT Treatment [facility] [address] [place] [phone] Sulema Lazar MD [address] [place] [address] Sarah Mckeon, [facility] Start: 10-19-2022 End: 10-19-2022 Patient encounter procedure 10/19/2022 8:45 AM EDT Treatment [facility] [address] [place] [phone] Sulema Lazar MD [address] [place] [address] Sarah Mckeon, [facility] Start: 10-16-2022 End: 10-16-2022 Patient encounter procedure 10/16/2022 9:30 AM EDT Treatment [facility] [address] [place] [phone] Sulema Lazar MD [address] [place] [address] Patti Song, [facility] Start: 10-12-2022 End: 10-12-2022 Patient encounter procedure 10/12/2022 9:30 AM EDT Treatment [facility] [address] [place] [phone] Sulema Lazar MD [address] [place] [address] Patti Song, [facility] Start: 10-09-2022 End: 10-09-2022 Patient encounter procedure 10/09/2022 9:30 AM EDT Treatment [facility] [address] [place] [phone] Sulema Lazar MD [address] [place] [address] Mary Manriquez, [facility] Start: 10-05-2022 End: 10-05-2022 Patient encounter procedure 10/05/2022 9:30 AM EDT Treatment [facility] [address] [place] [facility] [phone] Sulema Lazar MD [address] [place] [address] Natali Hope, [facility] Start: 10-03-2022 End: 10-03-2022 Patient encounter procedure 10/03/2022 8:10 AM EDT Office Visit [facility] [address] [place] [address] Meme Gimenez, [facility] [address] [place] [address] [facility] Start: 10-02-2022 End: 10-02-2022 Patient encounter procedure [facility] Start: 09-28-2022 End: 09-28-2022 Patient encounter procedure 09/28/2022 8:45 AM EDT Treatment [facility] [address] [place] [phone] Sulema Lazar MD [address] [place] [address] Kimo Rojo, BILL Discharge Disposition: Home [facility] Start: 09-27-2022 End: 09-27-2022 Patient encounter procedure 09/27/2022 1:00 PM EDT Office Visit Sports Medicine [facility] [place] [facility] [place] [address] [place] [address] Kevin Luna PAC [address] [place] [address] Sports Medicine [facility] Start: 09-26-2022 End: 09-26-2022 Patient encounter procedure 09/26/2022 8:45 AM EDT Treatment [facility] [address] [place] [phone] Sulema Lazar MD [address] [place] [address] Natali Hope [facility] Start: 09-24-2022 End: 09-24-2022 Patient encounter procedure 09/24/2022 8:45 AM EDT Treatment [facility] [address] [place] [phone] Sulema Lazar MD [address] [place] [address] Kimo Rojo [facility] Start: 09-21-2022 End: 09-21-2022 Patient encounter procedure 09/21/2022 8:45 AM EDT Treatment [facility] [address] [place] [phone] Sulema Lazar MD [address] [place] [address] Natali Hope [facility] Start: 09-20-2022 End: 09-20-2022 Patient encounter procedure 09/20/2022 10:45 AM EDT Office Visit [facility] Physician [facility] Obstetrics and Gynecology [address] [place] [address] Giuseppe Hobbs MD [address] [place], [place] [address] [place] [phone] [facility] Physician [facility]etric[facility]ne[facility] Start: 09-19-2022 End: 09-19-2022 Patient encounter procedure [facility] Start: 09-17-2022 End: 09-17-2022 Patient encounter procedure 09/17/2022 8:45 AM EDT Treatment [facility] [address] [place] [phone] Sulema Lazar MD [address] [place] [address] Natali Hope [facility] Start: 09-14-2022 End: 09-14-2022 Patient encounter procedure 09/14/2022 8:45 AM EDT Treatment [facility] [address] [place] [facility] [address] Sulema Lazar MD [address] [place] [address] Natali Hope, [facility] Start: 09-13-2022 End: 09-13-2022 Patient encounter procedure Division of Surgical Oncology Start: 09-12-2022 End: 09-12-2022 Patient encounter procedure 09/12/2022 8:45 AM EDT Treatment [facility] [address] [place] [address] Sulema Lazar MD [address] [place] [address] [facility] Start: 09-10-2022 End: 09-10-2022 Patient encounter procedure [facility] Start: 09-07-2022 End: 09-07-2022 Patient encounter procedure 09/07/2022 8:45 AM EDT Treatment [facility] [address] [place] [address] Sulema Lazar MD [address] [place] [address] Sarah Mckeon, [facility] Start: 09-05-2022 End: 09-05-2022 Patient encounter procedure 09/05/2022 8:45 AM EDT Treatment [facility] [address] [place] [address] Sulema Lazar MD [address] [place] [address] Sarah Mckeon PTA [facility] Start: 09-03-2022 End: 09-03-2022 Patient encounter procedure 09/03/2022 7:15 AM EDT Treatment [facility] [address] [place] [address] Sulema Lazar MD [address] [place] [address] [facility] Start: 08-31-2022 End: 08-31-2022 Patient encounter procedure 08/31/2022 9:30 AM EDT [facility] [address] [place] [address] Sulema Lazar MD [address] [place] [address] Discharge Disposition: Home [facility] Start: 08-23-2022 End: 08-23-2022 Patient encounter procedure 08/23/2022 Office Visit Sports Medicine Kevin Luna, PAC [address] [address] Sports Medicine Toñito Lui [facility] Start: 08-06-2022 End: 08-06-2022 Ligamentous reconstruction knee extra-articular RECONSTRUCTION KNEE LIGAMENTOUS INTRA-ARTICULAR/EXTRA-A RTICULAR Patellar instability of right knee Current tear of semilunar cartilage of right knee, subsequent encounter 08/06/2022 8:42 AM EDT [facility] Start: 07-26-2022 End: 07-26-2022 Admission to same day surgery center 07/26/2022 12:45 PM EDT - 07/26/2022 2:08 PM EDT [facility] [address] [place] [address] Candace Trammell MD [address] [place] [address] CYSTOSCOPY WITH RETROGRADE STONE MANIPULATION STENT INSERTION WITH LASER [facility] Comment on above: CYSTOSCOPY WITH RETROGRADE STONE MANIPUL ATION STENT INSERTION WITH LASER Start: 07-26-2022 End: 07-26-2022 CYSTOSCOPY WITH RETROGRADE STONE MANIPULATION STENT INSERTION WITH LASER CYSTOSCOPY WITH RETROGRADE STONE MANIPULATION STENT INSERTION WITH LASER Right ureteral stone 07/26/2022 12:45 PM EDT [facility] Start: 07-26-2022 Subsequent hospital visit by physician 07/26/2022 12:45 PM EDT Hospital Encounter [facility] [address] [place] [address] Candace Trammell MD [address] [place] [address] [facility] Start: 07-12-2022 End: 07-12-2022 Patient encounter procedure 07/12/2022 Office Visit Sports Medicine Sulema Lazar MD [address] [facility] [address] [place] [address] Sports Medicine [facility] Start: 07-05-2022 End: 07-05-2022 Patient encounter procedure 07/05/2022 Appointment Magnetic Resonance Imaging Sulema Lazar MD [address] [place] [address] Imaging [facility] Start: 06-28-2022 End: 06-28-2022 Patient encounter procedure 06/28/2022 Office Visit Psychiatry Sarabjit Boyce, [employer] [address] [place] [address] [facility] Start: 06-22-2022 End: 06-22-2022 Patient encounter procedure 06/22/2022 Office Visit Surgical Oncology Jose A Robels MD, MPH [address] [place] [address] [address] [place] [address] Division of Surgical Oncology Start: 06-14-2022 End: 06-15-2023 MR Knee - right WO contrast MRI KNEE RIGHT WITHOUT CONTRAST Imaging STAT Right knee pain, unspecified chronicity Expected: 06/14/2022, Expires: 06/15/2023 [facility] Comment on above: Expected: 06/14/2022, Expires: Start: 05-24-2022 End: 05-24-2022 Patient encounter procedure 05/24/2022 Appointment Radiology Yina Ahn, ARNOLD [address] [place] [address] [facility] Start: 05-23-2022 End: 05-23-2022 Patient encounter procedure 05/23/2022 Office Visit Gastroenterology Yina Ahn, ARNOLD [address] [place] [address] [facility] Start: 05-01-2022 End: 05-01-2022 Patient encounter procedure 05/01/2022 Office Visit General Surgery Dallin More MD [facility] Rajinder Sotelo [address] [address] [facility] Start: 04-25-2022 Subsequent hospital visit by physician [facility]ound Start: 04-23-2022 End: 04-23-2022 Patient encounter procedure 04/23/2022 Office Visit Gastroenterology Meme Gimenez, [employer] [address] [place] [address] Yina Ahn, ARNOLD [address] [place] [address] [facility] Start: 2022 Hepatitis B vaccination HEP B VACCINE (1 of 3 - 19+ 3-dose series) [facility] Start: 2022 Third diphtheria, tetanus and acellular pertussis (DTaP) vaccination TDAP (ADULT) [facility] Start: 03-07-2022 End: 03-07-2022 Patient encounter procedure 03/07/2022 Office Visit Urology Natalie Smalls, [employer] [address] [place] [address] [facility] Start: 01-16-2022 End: 01-16-2022 Patient encounter procedure 01/16/2022 Office Visit Cardiovascular Medicine Pedro Rodriguez MD [address] [place] [address] [facility] Start: 12-26-2021 End: 12-26-2021 Patient encounter procedure 12/26/2021 Office Visit Family Medicine Milton Leos MD [address] [place] [address] [facility] Start: 12-23-2021 History and physical examination, annual for health maintenance Wellness Visit [facility] Start: 12-14-2021 End: 12-14-2021 Patient encounter procedure 12/14/2021 Office Visit Primary Care Meme Gimenez, [employer] [address] [place] [address] [facility] Start: 11-02-2021 Influenza vaccination [facility] Start: 05-10-2021 COVID-19 Vaccine (3 - Booster for Pfizer series) COVID-19 Vaccine (3 - Booster for Pfizer series) [facility] Start: 2021 COVID-19 Vaccine (3 - Booster for Pfizer series) COVID-19 Vaccine (3 - Booster for Pfizer series) [facility] Start: 02-07-2021 End: 02-07-2022 MONONUCLEOSIS SCREEN MONONUCLEOSIS SCREEN Lab Routine Sore throat Expected: 02/07/2021, Expires: 02/07/2022 [facility] Comment on above: Expected: 02/07/2021, Expires: Start: 02-02-2021 End: 02-02-2021 Patient encounter procedure 02/02/2021 Office Visit Sports Medicine Mary Miguel MD [address] [facility] [facility] [place] [address] [facility] Start: 01-05-2021 COVID-19 Vaccine (3 - Booster for Pfizer series) COVID-19 Vaccine (3 - Booster for Pfizer series) [facility] Start: 01-05-2021 COVID-19 VACCINE (3 - Pfizer series) COVID-19 VACCINE (3 - Pfizer series) [facility] Start: 12-23-2020 End: 12-23-2020 Office Visit 12/23/2020 Office Visit Family Medicine Milton Leos MD [address] [place] [address] [facility] Start: 12-16-2020 Screening for Chlamydia trachomatis [facility] Start: 12-08-2020 COVID-19 Vaccine (3 - Pfizer risk series) COVID-19 Vaccine (3 - Pfizer risk series) [facility] Start: 11-02-2020 Influenza vaccination Sequential Influenza Vaccine (#1) [facility] Start: 10-13-2020 End: 10-13-2020 Office Visit [facility] Start: 04-29-2020 End: 04-29-2020 Treatment 04/29/2020 Treatment Rehabilitation Mary Miguel MD [address] [place] [address] [phone] Lam Jorge, [facility] Start: 04-26-2020 End: 04-26-2020 Treatment 04/26/2020 Treatment Rehabilitation Mary Miguel MD [address] [place] [address] [phone] Lam Jorge, [facility] Start: 04-22-2020 End: 04-22-2020 Treatment 04/22/2020 Treatment Rehabilitation Mary Miguel MD [address] [place] [address] Karuna Ibrahim, [facility] Start: 04-19-2020 End: 04-19-2020 Treatment 04/19/2020 Treatment Rehabilitation Mary Miguel MD [address] [place] [address] Lam Jorge, [facility] Start: 04-15-2020 End: 04-15-2020 Treatment 04/15/2020 Treatment Rehabilitation Mary Miguel MD [address] [place] [address] Karuna Ibrahim, [facility] Start: 2020 End: 2020 Treatment 2020 Treatment Rehabilitation Mary Miguel MD [address] [place] [address] Lam Jorge, [facility] Start: 04-08-2020 End: 04-08-2020 Treatment 04/08/2020 Treatment Mary Black MD [address] [place] [address] Karuna Ibrahim, [facility] Start: 04-05-2020 End: 04-05-2020 Treatment 04/05/2020 Treatment Rehabilitation Mary Miguel MD [address] [place] [address] Lam Jorge, [facility] Start: 04-01-2020 End: 04-01-2020 Treatment 04/01/2020 Treatment Rehabilitation Mary Miguel MD [address] [place] [address] [phone] Lam Jorge, [facility] Start: 03-31-2020 End: 03-31-2020 Office Visit 03/31/2020 Office Visit Sports Medicine Mary Miguel MD [address] [place] [address] [phone] [facility] Start: 03-29-2020 End: 03-29-2020 Treatment [facility] Start: 03-25-2020 End: 03-25-2020 Treatment [facility] Start: 03-24-2020 End: 03-24-2020 Office Visit 03/24/2020 Office Visit Sports Medicine Mary Miguel MD [address] [place] [address] [phone] [facility] Start: 03-22-2020 End: 03-22-2020 Treatment 03/22/2020 Treatment Rehabilitation Mary Miguel MD [address] [address] [phone] Natali Hope, [facility] Start: 03-18-2020 End: 03-18-2020 Treatment 03/18/2020 Treatment Rehabilitation Mary Miguel MD [address] [facility] [place] [address] [phone] Lam Jorge, [facility] Start: 03-15-2020 End: 03-15-2020 Treatment 03/15/2020 Treatment Rehabilitation Mary Miguel MD [address] [facility] [place] [address] [phone] Natali Hope, [facility] Start: 03-11-2020 End: 03-11-2020 Treatment 03/11/2020 Treatment Rehabilitation Mary Miguel MD [address] [facility] [place] [address] [facility] Start: 03-02-2020 End: 03-02-2020 Treatment [facility] Start: 02-29-2020 End: 02-29-2020 Treatment [facility] Start: 02-25-2020 End: 02-25-2020 Treatment 02/25/2020 Treatment Rehabilitation Mary Miguel MD [address] [place] [address] [place] [address] [phone] [facility] Start: 01-29-2020 End: 01-29-2020 Treatment [facility] Start: 01-26-2020 End: 01-26-2020 Treatment 01/26/2020 Treatment Rehabilitation Mary Miguel MD [address] [place] [address] [place] [address] [phone] [facility] Start: 01-22-2020 End: 01-22-2020 Treatment [facility] Start: 01-19-2020 End: 01-19-2020 Treatment 01/19/2020 Treatment Rehabilitation Mary Miguel MD [address] [place] [address] [place] [address] [facility] Start: 01-15-2020 End: 01-15-2020 Treatment 01/15/2020 Treatment Rehabilitation Mary Miguel MD [address] [facility] [place] [address] [phone] 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 [facility] Start: 01-12-2020 End: 01-12-2020 Treatment 01/12/2020 Treatment Mary Black MD [address] [place] [address] [phone] [facility] Start: 01-08-2020 End: 01-08-2020 Treatment 01/08/2020 Treatment Rehabilitation Mary Miguel MD [address] [place] [address] [phone] 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 Start: 01-05-2020 End: 01-05-2020 Treatment 01/05/2020 Treatment Rehabilitation Mary Miguel MD [address] [place] [address] [place] [address] [phone] [facility] Start: 01-01-2020 End: 01-01-2020 Treatment [facility] Start: 12-31-2019 End: 12-31-2019 Treatment 12/31/2019 Treatment Mary Black MD [address] [place] [address] [place] [address] [phone] 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 Start: 12-28-2019 End: 12-28-2019 Treatment 12/28/2019 Treatment Mary Black MD [address] [place] [address] [place] [address] [phone] Kimo Rojo, [facility] Start: 12-25-2019 End: 12-25-2019 Treatment [facility] Start: 12-24-2019 End: 12-24-2019 Follow-Up [facility] Start: 12-21-2019 End: 12-21-2019 Treatment 12/21/2019 Treatment Mary Black MD [address] [place] [address] [place] [address] [phone] 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 Start: 12-18-2019 End: 12-18-2019 Treatment 12/18/2019 Treatment Mary Black MD [address] [place] [address] [phone] Kimo Rojo, [facility] Start: 12-17-2019 End: 12-17-2019 Treatment 12/17/2019 Treatment Rehabilitation Mary Miguel MD [address] [place] [address] 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 Start: 12-14-2019 End: 12-14-2019 Treatment 12/14/2019 Treatment Rehabilitation Mary Miguel MD [address] [place] [address] [facility] Start: 12-11-2019 End: 12-11-2019 Treatment [facility] Start: 12-10-2019 End: 12-10-2019 Treatment 12/10/2019 Treatment Rehabilitation Mary Miguel MD [address] [address] [phone] 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 Start: 12-07-2019 End: 12-07-2019 Treatment 12/07/2019 Treatment Rehabilitation Mary Miguel MD [address] [place] [address] [place] [address] 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 Start: 12-03-2019 End: 12-03-2019 Treatment 12/03/2019 Treatment Mary Black MD [address] [facility] [place] [address] 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 Start: 11-30-2019 End: 11-30-2019 Treatment [facility] Start: 11-27-2019 End: 11-27-2019 Treatment [facility] Start: 11-26-2019 End: 11-26-2019 Follow-Up 11/26/2019 Follow-Up Sports Medicine Mary Miguel MD [address] [place] [address] [facility] Start: 11-26-2019 End: 11-26-2019 Treatment 11/26/2019 Treatment Rehabilitation Mary Miguel MD [address] [place] [address] 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 Start: 11-23-2019 End: 11-23-2019 Treatment 11/23/2019 Treatment Rehabilitation Mary Miguel MD [address] [place] [address] [facility] Start: 11-20-2019 End: 11-20-2019 Treatment 11/20/2019 Treatment Rehabilitation Mary Miguel MD [address] [place] [address] 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 Start: 11-19-2019 End: 11-19-2019 Treatment 11/19/2019 Treatment Rehabilitation Mary Miguel MD [address] [place] [address] 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 Start: 11-16-2019 End: 11-16-2019 [facility] Start: 11-12-2019 End: 11-12-2019 Treatment 11/12/2019 Treatment Rehabilitation Mary Miguel MD [address] [place] [address] 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 Start: 11-10-2019 End: 11-10-2019 Treatment 11/10/2019 Treatment Rehabilitation Mary Miguel MD [address] [place] [address] 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 Start: 11-05-2019 End: 11-05-2019 Treatment 11/05/2019 Treatment Rehabilitation Mary Miguel MD [address] [place] [address] 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, FRIEND OF [employer] COURT [facility] Start: 11-03-2019 Influenza vaccination [facility] Start: 11-03-2019 Influenza vaccination given Sequential Influenza Vaccine (#1) [facility] Start: 10-28-2019 End: 10-28-2019 Follow-Up 10/28/2019 Follow-Up Sports Medicine Mary Miguel MD [address] [place] [address] [phone] [facility] Start: 09-18-2019 End: 09-18-2019 Office Visit 09/18/2019 Office Visit Sports Medicine Yumiko Hancock, [employer] [address] [facility] [address] [place], [place] [id number] Mary Miguel MD [address] [place] [address] [phone] [facility] Start: 06-15-2019 End: 06-15-2019 Telemedicine 06/15/2019 Telemedicine Family Medicine Milton Leos MD [address] [place] [facility] [place] [phone] [facility] Start: 05-15-2019 End: 05-15-2019 Office Visit 05/15/2019 Office Visit Family Medicine Milton Leos MD [address] [place] [facility] [place] [phone] [facility] Start: 2019 COVID-19 Vaccine (1 of 2) COVID-19 Vaccine (1 of 2) [facility] Start: 2019 COVID-19 Vaccine (1) COVID-19 Vaccine (1) [facility] Start: 2019 Meningococcal conjugate vaccination [facility] Work Phone: Start: 2019 Screening for Chlamydia trachomatis CHLAMYDIA SCREEN [facility] Start: 04-06-2019 End: 04-06-2020 MRI of brain and brain stem MRI BRAIN WITHOUT CONTRAST Imaging Routine Intractable chronic paroxysmal hemicrania Expected: 04/06/2019, Expires: 04/06/2020 [employer] [facility] Comment on above: Expected: 04/06/2019, Expires: 1 Start: 11-13-2018 End: 11-14-2019 MRI of shoulder MRI SHOULDER LEFT WITHOUT CONTRAST Imaging Routine Instability of shoulder joint, 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, left shoulder Expected: 11/13/2018, Expires: 11/14/2019 [employer] [facility] Comment on above: Expected: 11/13/2018, Expires: 0 Start: 11-13-2018 End: 11-14-2019 Radiography of shoulder XR SHOULDER LEFT MIN 2 VIEWS Imaging Routine Instability of shoulder joint, unspecified laterality Expected: 11/13/2018, Expires: 11/14/2019 [employer] [facility] Comment on above: Expected: 11/13/2018, Expires: 0 Start: 11-02-2018 Influenza vaccination [facility] Start: 11-02-2018 Influenza vaccination given SEQUENTIAL INFLUENZA VACCINE (#1) [facility] Start: 07-31-2018 End: 07-31-2018 Office Visit 07/31/2018 Office Visit Dentistry [facility] Start: 07-02-2018 End: 07-02-2018 Office Visit 07/02/2018 Office Visit Dentistry [facility] Start: 07-01-2018 End: 07-01-2018 Hospital Encounter [facility] Start: 2018 HIV screening HIV SCREENING DISCUSSION [facility] Start: 2018 HPV VACCINE (1 - 3-dose series) HPV VACCINE (1 - 3-dose series) [facility] Start: 2018 Vaccination for human papillomavirus [facility] Start: 04-11-2018 End: 04-11-2018 Ambulatory 04/11/2018 Office Visit Family Medicine Milton Leos MD [address] [place] [address] [facility] Start: 11-02-2017 Influenza vaccination INFLUENZA VACCINE (#1) [facility] Work Phone: Start: 11-02-2017 Influenza vaccination given SEQUENTIAL INFLUENZA VACCINE (#1) [facility] Start: 04-18-2017 Hepatitis A immunization HEP A VACCINE (2 of 2 - 2-dose series) [facility] Work Phone: Start: 07-02-2016 DTAP/TDAP/TD VACCINE (4 - Tdap) DTAP/TDAP/TD VACCINE (4 - Tdap) [facility] Work Phone: Start: 2016 HIV screening HIV SCREENING DISCUSSION [facility] Work Phone: Start: 2016 Varicella vaccination [facility] Work Phone: Start: 01-04-2016 DTAP/TDAP/TD VACCINE (6 - Tdap) DTAP/TDAP/TD VACCINE (6 - Tdap) [facility] Start: 2015 Adolescent depression screening assessment Depression Screening (PHQ9) [facility] Start: 2015 COVID-19 VACCINE (1) COVID-19 VACCINE (1) [facility] Start: 2015 Depression screening using PHQ-9 (Patient Health Questionnaire 9) score [facility] Start: 2014 DTAP/TDAP/TD VACCINE (6 - Tdap) DTAP/TDAP/TD VACCINE (6 - Tdap) [facility] Start: 2014 Meningococcal conjugate vaccination [facility] Work Phone: Start: 2014 Vaccination for human papillomavirus HPV VACCINE ADOL (1 - Female 2-dose series) [facility] Work Phone: Start: 2010 DTAP/TDAP/TD VACCINE (1 - Tdap) DTAP/TDAP/TD VACCINE (1 - Tdap) [facility] Work Phone: Start: 2010 Tetanus, diphtheria and acellular pertussis vaccination DTAP VACCINES (1 - Tdap) [facility] Start: 2009 Pneumococcal Vaccine: Ped or At-Risk (1 - PCV) Pneumococcal Vaccine: Ped or At-Risk (1 - PCV) [facility] Start: 2006 History and physical examination, annual for health maintenance Wellness Visit [facility] Start: 2004 Hepatitis A immunization HEPATITIS A VACCINES (1 of 2 - 2-dose series) [facility] Start: 2004 [id number] vaccination [facility] Work Phone: Start: 2003 Inactivated poliovirus vaccine (product) [facility] Work Phone: Start: 2003 Adolescent depression screening assessment Depression Screening (PHQ9) [facility] Start: 2003 Depression screening using PHQ-9 (Patient Health Questionnaire 9) score DEPRESSION SCREENING (PHQ9) [facility] Start: 2003 Hepatitis B vaccination [facility] Work Phone: Start: 2003 Hepatitis C screening HEPATITIS C VIRUS SCREENING [facility] Start: 2003 Screening for Chlamydia trachomatis [facility] Start: 2003 Tetanus vaccination TETANUS [facility] CHEKO MULTIPLEX SCRN W ITH REFLEX CHEKO MULTIPLEX SCRN WITH REFLEX Lab Routine Chronic fatigue 04/06/2019 10:54 AM EST [employer] End: 06-16-2018 Bacteria identified Aer cx Nom (Unsp spec) Urine Aerobic Culture Routine Once for 1 Occurrences starting 06/16/2018 until 06/16/2018 [facility] Comment on above: Once for 1 Occurrences starting 06/17/19 19 until 06/16/2018 Bacteria identified Aer cx Nom (Unsp spec) Urine Aerobic Culture Routine 06/16/2018 6:54 PM EDT [facility] Bacteria identified Cx Nom (U) [facility]acteria identified in Urine by Culture URINE CULTURE Microbiology STAT 01/03/2022 2:25 PM [facility]T [facility] identified in Urine by Culture URINE CULTURE Microbiology Routine 04/04/2023 1:29 PM EST [employer] [facility] End: 09-15-2023 Bacteria identified in Urine by Culture [facility] Comment on above: One Time for 1 Occurrences starting 09/01 until 09/15/2023 CHG US PREG UTERUS R EAL TIME F/U TRNSABDL PER FETUS CHG US PREG UTERUS REAL TIME F/U TRNSABDL PER FETUS DE - OFFICE PERFORMED IMAGING Routine POTS (postural orthostatic tachycardia syndrome) Yola-Danlos syndrome type III Encounter for ultrasound to assess interval growth of fetus 27 weeks gestation of Ordered: 10/27/2024 [facility] Comment on above: Ordered: 10/27/2024 CHG US PREG UTERUS R EAL TIME W/IMAGE DCMTN TRANSVAG CHG US PREG UTERUS REAL TIME W/IMAGE DCMTN TRANSVAG DE - OFFICE PERFORMED IMAGING Routine Encounter for screening for risk of pre-term labor 19 weeks gestation of Ordered: 09/01/2024 [facility] Comment on above: Ordered: 09/01/2024 CHG US PREG UTERUS W/DETAIL RUSSEL 1ST GESTATION CHG US PREG UTERUS W/DETAIL RUSSEL 1ST GESTATION DE - OFFICE PERFORMED IMAGING Routine Yola-Danlos syndrome Encounter for anatomic survey 19 weeks gestation of Ordered: 09/01/2024 [facility] Comment on above: Ordered: 09/01/2024 CHLAMYDIA/GONOCOCCUS , GISSELLE CHLAMYDIA/GONOCOCCUS, GISSELLE Microbiology Routine Encounter for routine child health examination without abnormal findings 12/17/2019 10:20 AM T [facility] End: 02-17-2018 CK CK Routine One Time Morning Lab for 1 Occurrences starting 02/17/2018 until 02/17/2018 [facility] Work Phone: Comment on above: One Time Morning Lab for 1 Occurrences s tarting 02/17/2018 until 02/17/2018 Colonoscopy COLONOSCOPY Bloo d in the stool Generalized abdominal pain [facility] End: 02-17-2018 CRP mass conc C REACTIVE PROTEIN Routine One Time Morning Lab for 1 Occurrences starting 02/17/2018 until 02/17/2018 [facility] Work Phone: Comment on above: One Time Morning Lab for 1 Occurrences s tarting 02/17/2018 until 02/17/[address] cervical spine CT SPINE CE RVICAL WITHOUT CONTRAST Routine 02/16/2018 2:41 PM EST [facility] Work Phone: Diagnostic radiograp hy of chest, combined PA and lateral XR CHEST PA AND LATERAL Routine 02/16/2018 2:41 PM EST [facility] Work Phone: End: 01-03-2022 HOLTER MONITOR - 24 HOUR HOLTER MONITOR - 24 HOUR ECG STAT One Time for 1 Occurrences starting 01/03/2022 until 01/03/2022 [facility] Comment on above: One Time for 1 Occurrences starting 04/2021 until 01/03/2022 Ligamentous reconstruction knee extra-articular RECONSTRUCTION KNEE LIGAMENTOUS INTRA-ARTICULAR/EXTRA-A RTICULAR Patellar instability of right knee [facility] End: 07-27-2022 MR Hip Left Without Contrast MR Hip Left Without Contrast Imaging Routine Tear of left acetabular labrum, subsequent encounter 1 Occurrences starting 07/27/2021 until 07/27/2022 [facility] Work Phone: Comment on above: 1 Occurrences starting 07/27/2021 until 07/27/2022 End: 12-29-2021 MR Hip Right Without Contrast MR Hip Right Without Contrast Imaging Routine Tear of right acetabular labrum, initial encounter 1 Occurrences starting 12/29/2020 until 12/29/2021 [facility] Work Phone: Comment on above: 1 Occurrences starting 12/29/2020 until 12/29/2021 End: 07-27-2022 MR Hip Right Without Contrast MR Hip Right Without Contrast Imaging Routine Tear of right acetabular labrum, initial encounter 1 Occurrences starting 07/27/2021 until 07/27/2022 [facility] Comment on above: 1 Occurrences starting 07/27/2021 until 07/27/2022 End: 06-10-2019 MR Knee Right Without Contrast MR Knee Right Without Contrast Routine Knee meniscus pain, right Tear of MCL (medial collateral ligament) of knee, right, initial encounter 1 Occurrences starting 06/09/2018 until 06/10/2019 [facility] Comment on above: 1 Occurrences starting 06/09/2018 until 06/10/2019 End: 07-01-2018 MR Knee Right Without Contrast MR Knee Right Without Contrast Routine Knee meniscus pain, right Tear of MCL (medial collateral ligament) of knee, right, initial encounter Once for 1 Occurrences starting 07/01/2018 until 07/01/2018 [facility] Comment on above: Once for 1 Occurrences starting 07/02/19 19 until 07/01/2018 MR Knee Right Withou t Contrast MR Knee Right Without Contrast Routine Knee meniscus pain, right Tear of MCL (medial collateral ligament) of knee, right, initial encounter 07/01/2018 7:36 PM EDT [facility] MRI of brain and bra in stem MRI BRAIN WITHOUT CONTRAST Imaging Routine Intractable chronic paroxysmal hemicrania 04/20/2019 3:28 PM EST [facility] End: 11-15-2018 Radiography of shoulder XR SHOULDER LEFT MIN 2 VIEWS Imaging Routine Instability of shoulder joint, unspecified laterality 1 Occurrences starting 11/15/2018 until 11/15/2018 [facility] Comment on above: 1 Occurrences starting 11/15/2018 until 11/15/2018 Radiography of shoulder XR SHOUL BONITA LEFT MIN 2 VIEWS Imaging Routine Instability of shoulder joint, unspecified laterality 11/15/2018 6:48 PM EDT [facility] End: 08-06-2022 RF Hip Single view during surgery [facility] Comment on above: One Time for 1 Occurrences starting 07/2022 until 08/06/2022 End: 03-23-2019 S. pyogenes Org specific cx Ql (Throat) Strep A Culture, Throat Microbiology ELEAZAR Once for 1 Occurrences starting 03/23/2019 until 03/23/2019, 1 completed [facility] Comment on above: Once for 1 Occurrences starting 03/23/19 until 03/23/2019, 1 completed S. pyogenes Org spec ific cx Ql (Throat) Strep A Culture, Throat Microbiology Routine 03/23/2019 7:04 PM EST [facility] End: 04-23-2023 Small bowel series XR Small Bowel Follow Through Imaging Routine Chronic constipation Bloating Nausea 1 Occurrences starting 04/23/2022 until 04/23/2023 [facility] Work Phone: Comment on above: 1 Occurrences starting 04/23/2022 until 04/23/2023 End: 02-16-2018 Standard ECG ECG Routine One Time for 1 Occurrences starting 02/16/2018 until 02/16/2018 [facility] Work Phone: Comment on above: One Time for 1 Occurrences starting 02/01 until 02/16/2018 End: 01-03-2022 Standard ECG ECG ECG STAT One Time for 1 Occurrences starting 01/03/2022 until 01/03/2022 [facility] Work Phone: Comment on above: One Time for 1 Occurrences starting 04/2021 until 01/03/2022 Standard ECG ECG ECG STAT 05/2021 2:13 PM EDT [facility] Standard ECG ECG ECG STAT 10:22 PM EDT [facility] Standard ECG ECG ECG Routine POTS (postural orthostatic tachycardia syndrome) 10/07/2024 11:30 AM EDT [facility] TRICHOMANAS VAGINALI S, GISSELLE TRICHOMANAS VAGINALIS, GISSELLE Fluids Routine Routine screening for STI (sexually transmitted infection) 12/17/2019 10:20 AM [facility] End: 04-17-2023 Ultrasonography guided biopsy of left breast US Breast Biopsy Left Imaging Routine Abnormal finding on imaging Breast lump in upper outer quadrant 1 Occurrences starting 04/17/2022 until 04/17/2023 [facility] Work Phone: Comment on above: 1 Occurrences starting 04/17/2022 until 04/17/2023 End: 10-30-2024 Urinalysis, reagent strip without microscopy URINALYSIS, MACRO Fluids STAT One Time for 1 Occurrences starting 10/30/2024 until 10/30/2024 [facility] Comment on above: One Time for 1 Occurrences starting 10/03 until 10/30/2024 Urinalysis, reagent strip without microscopy URINALYSIS, MACRO Fluids STAT 10/30/2024 8:40 PM EDT [facility] End: 08-06-2022 US Unspecified body region US IMAGING OSC Imaging Routine One Time for 1 Occurrences starting 08/06/2022 until 08/06/2022 [facility] Work Phone: Comment on above: One Time for 1 Occurrences starting 07/2022 until 08/06/2022 End: 10-30-2024 WET PREP GENITAL WET PREP GENITAL Microbiology STAT One Time for 1 Occurrences starting 10/30/2024 until 10/30/2024 [facility] Work Phone: Comment on above: One Time for 1 Occurrences starting 10/03 until 10/30/2024 WET PREP GENITAL WET PREP GENITA L Microbiology STAT 10/30/2024 8:40 PM EDT [facility] XR Knee Right WB OA 4 Views XR Knee Right WB OA 4 Views Routine Knee meniscus pain, right 06/09/2018 11:26 AM EDT [facility] End: 04-23-2023 XR Upper GI With Esophagram XR Upper GI With Esophagram Imaging Routine Chronic constipation Bloating Nausea 1 Occurrences starting 04/23/2022 until 04/23/2023 [facility] Comment on above: 1 Occurrences starting 04/23/2022 until 04/23/2023 Immunizations Immunization Date Immunization Notes Care Provider [facility] 05-18-2024 influenza virus vacc ine, unspecified formulation [facility] Ultrasound 2 [facility] 12-23-2020 influenza virus vacc ine, unspecified formulation Meme Gimenez [employer] Work Phone: [facility] 12-17-2019 meningococcal polysaccharide (groups A, C, Y and W-135) diphtheria toxoid conjugate vaccine (MCV4P) [facility] 12-14-2019 meningococcal vaccin e of unknown formulation and unknown serogroups [facility] 12-14-2019 meningococcal polysaccharide vaccine (MPSV4) [facility] 05-28-2019 diphtheria, tetanus toxoids and acellular pertussis vaccine, unspecified formulation [facility] 05-28-2019 meningococcal vaccin e of unknown formulation and unknown serogroups [facility] 10-16-2016 hepatitis A vaccine, pediatric/adolescent dosage, 2 dose schedule; Translations: [havarix] Annmarie Norwood [facility] Work Phone: 01-03-2016 diphtheria, tetanus toxoids and acellular pertussis vaccine [facility] Work Phone: 01-03-2016 hepatitis A vaccine, pediatric/adolescent dosage, 2 dose schedule [facility] Work Phone: 01-03-2016 HPV, unspecified formulation [facility] Work Phone: 01-03-2016 tetanus and diphther ia toxoids, adsorbed, preservative free, for adult use (2 Lf of tetanus toxoid and 2 Lf of diphtheria toxoid) [facility] Work Phone: 01-03-2016 tetanus toxoid, redu ely diphtheria toxoid, and acellular pertussis vaccine, adsorbed [facility] 06-15-2015 human papilloma viru s vaccine, quadrivalent [facility] Work Phone: 06-15-2015 meningococcal oligosaccharide (groups A, C, Y and W-135) diphtheria toxoid conjugate vaccine (MCV4O) [facility] Work Phone: 10-30-2007 diphtheria, tetanus toxoids and acellular pertussis vaccine [facility] 10-30-2007 diphtheria, tetanus toxoids and acellular pertussis vaccine, unspecified formulation [facility] Work Phone: 10-30-2007 measles, mumps and rubella virus vaccine [facility] Work Phone: 10-30-2007 poliovirus vaccine, inactivated [facility] Work Phone: 10-30-2007 varicella virus vaccine [facility] Work Phone: 10-05-2004 diphtheria, tetanus toxoids and acellular pertussis vaccine [facility] 10-05-2004 diphtheria, tetanus toxoids and acellular pertussis vaccine, unspecified formulation [facility] Work Phone: 10-05-2004 haemophilus influenz ae type b vaccine, conjugate unspecified formulation [facility] Work Phone: 10-05-2004 measles, mumps and rubella virus vaccine [facility] Work Phone: 10-05-2004 varicella virus vaccine [facility] Work Phone: 2003 diphtheria, tetanus toxoids and acellular pertussis vaccine [facility] 2003 DTaP-hepatitis B and poliovirus vaccine [facility] Work Phone: 2003 haemophilus influenz ae type b vaccine, conjugate unspecified formulation [facility] Work Phone: 2003 hepatitis B vaccine, pediatric or pediatric/adolescent dosage [facility] Work Phone: 2003 diphtheria, tetanus toxoids and acellular pertussis vaccine [facility] 2003 diphtheria, tetanus toxoids and acellular pertussis vaccine, unspecified formulation [facility] Work Phone: 2003 haemophilus influenz ae type b vaccine, conjugate unspecified formulation [facility] Work Phone: 2003 poliovirus vaccine, inactivated [facility] Work Phone: 2003 diphtheria, tetanus toxoids and acellular pertussis vaccine [facility] 2003 DTaP-hepatitis B and poliovirus vaccine [facility] Work Phone: 2003 haemophilus influenz ae type b vaccine, conjugate unspecified formulation [facility] Work Phone: 2003 hepatitis B vaccine, pediatric or pediatric/adolescent dosage [facility] Work Phone: 2003 hepatitis B vaccine, pediatric or pediatric/adolescent dosage [facility] [place] [facility] Work Phone: Payers Date Payer Category Payer Self-pay 2016 Medicaid (Managed Care) 1.2. [id number] 15 2003 Unknown [id number] 2.16. 840.1.516159.3.579.2.903 2003 Unknown [id number] 2.16. 840.1.623434.3.579.2.90 2003 Unknown [id number] 2.16. 840.1.145055.3.579.2.903 2003 Unknown [id number] 2.16. 840.1.877821.3.579.2.90 2003 Unknown [id number] 2.16. 840.1.647291.3.579.2.903 2003 Unknown [id number] 2.16. 840.1.493703.3.579.2.903 2003 Unknown [id number] 2.16. 840.1.260782.3.579.2.903 2003 Unknown [id number] 2.16. 840.1.639337.3.579.2.90 2003 Unknown [id number] 2.16. 840.1.661622.3.579.2.903 2003 Unknown [id number] 2.16. 840.1.329607.3.579.2.90 2003 Unknown [id number] 2.16. 840.1.840782.3.579.2.3 2003 Unknown [id number] 2.16. 840.1.897630.3.579.2. 2003 Unknown [id number] 2.16. 840.1.136363.3.579.2. 2003 Unknown [id number] 2.16. 840.1.158768.3.579.2. 2003 Unknown [id number] 2.16. 840.1.072616.3.579.2. 2003 Unknown [id number] 2.16. 840.1.888411.3.579.2. 2003 Unknown [id number] 2.16. 840.1.882081.3.579.2. 2003 Unknown [id number] 2.16. 840.1.840564.3.579.2. 2003 Unknown [id number] 2.16. 840.1.125879.3.579.2. 2003 Unknown [id number] 2.16. 840.1.037060.3.579.2. 2003 Unknown [id number] 2.16. 840.1.796787.3.579.2. 2003 Unknown [id number] 2.16. 840.1.493969.3.579.2. 2003 Unknown [id number] 2.16. 840.1.593498.3.579.2. 2003 Unknown [id number] 2.16. 840.1.603868.3.579.2. 2003 Unknown [id number] 2.16. 840.1.295839.3.579.2. 2003 Unknown [id number] 2.16. 840.1.748537.3.579.2. 2003 Unknown [id number] 2.16. 840.1.463352.3.579.2.903 2003 Unknown [id number] 2.16. 840.1.606539.3.579.2.90 2003 Unknown [id number] 2.16. 840.1.688741.3.579.2.903 2003 Unknown [id number] 2.16. 840.1.801416.3.579.2.3 2003 Unknown [id number] 2.16. 840.1.176894.3.579.2.903 2003 Unknown [id number] 2.16. 840.1.450887.3.579.2. 2003 Unknown [id number] 2.16. 840.1.446084.3.579.2. 2003 Unknown [id number] 2.16. 840.1.681989.3.579.2. 2003 Unknown [id number] 2.16. 840.1.774013.3.579.2. 2003 Unknown [id number] 2.16. 840.1.841146.3.579.2. 2003 Unknown [id number] 2.16. 840.1.250261.3.579.2. 2003 Unknown [id number] 2.16. 840.1.461134.3.579.2. 2003 Unknown [id number] 2.16. 840.1.258963.3.579.2. 2003 Unknown [id number] 2.16. 840.1.717095.3.579.2. 2003 Unknown [id number] 2.16.8 40.1.504154.3.579.2.983 2003 Unknown [id number] 2.16. 840.1.690476.3.579.2.594 2003 Unknown [id number] 2.16. 840.1.745499.3.579.2.594 2003 Unknown [id number] 2.16. 840.1.417012.3.579.2.594 2003 Unknown [id number] 2.16. 840.1.583874.3.579.2.594 2003 Unknown [id number] 2.16. 840.1.588683.3.579.2.594 2003 Unknown [id number] 2.16. 840.1.946095.3.579.2.594 2003 Unknown [id number] 2.16.8 40.1.314296.3.579.2.983 2003 Unknown [id number] 2.16.8 40.1.843200.3.579.2.983 2003 Unknown [id number] 2.16.8 40.1.771396.3.579.2.983 2003 Unknown [id number] 2.16.8 40.1.043109.3.579.2.983 2003 Unknown [id number] 2.16.8 40.1.908986.3.579.2.983 2003 Unknown [id number] 2.16.8 40.1.598804.3.579.2.983 2003 Unknown [id number] 2.16. 840.1.356620.3.579.2.479 2003 Unknown [id number] 2.16. 840.1.394732.3.579.2.902 2002 Unknown [id number] 2. 16.840.1.200247.3.249.13 2002 Unknown [id number] 1.2.840.384366.1.13.385.2.7.3.476268.315 2002 Unknown [id number] 1.2.840.661329.1.13.385.2.7.3.133231.315 2002 Unknown 1.2.840.577923. 1.13.385.2.7.3.916722.315 1977 Unknown [id number] 2.16.8 40.1.521144.3.579.2.900 1977 Unknown [id number] 2.16. 840.1.219881.3.579.2.903 1977 Unknown [id number] 2.16. 840.1.468043.3.579.2.903 Medicaid 1.2.840.340709. 1.13.385.2.7.3.134364.315 Unknown [id number] 2.16.8 40.1.850712.3.579.2.462 Unknown [id number] 2.16.8 40.1.941970.3.579.2.462 Unknown [id number] 2.16.8 40.1.517861.3.579.2.462 Unknown [id number] 2.16.8 40.1.271996.3.579.2.462 Unknown [id number] 2.16.8 40.1.027904.3.579.2.462 Unknown [id number] 2.16.8 40.1.807901.3.579.2.462 Unknown [id number] 2.16.8 40.1.648389.3.579.2.462 Social History Date Type Detail Facility Start: 10-17-2016 End: 02-09-2017 Tobacco smoking status NHIS Unknown if ever smoked [employer] Work Phone: Start: 2005 Sex Assigned At Not on file [employer] Work Phone: Start: 12-11-2017 End: 11-12-2024 Tobacco smoking status NHIS Never smoker [facility] Work Phone: Start: 07-07-2018 End: 09-13-2022 Alcohol intake No [facility] Start: 12-14-2018 End: 04-04-2023 Alcohol intake Current non-drinker of alcohol (finding) [facility] Exposure to SARS-CoV -2 (event) Unable to assess [facility] Start: 07-17-2021 End: 07-26-2022 Exposure to SARS-CoV-2 (event) Not sure [facility] Start: 10-28-2019 End: 09-13-2022 Tobacco use and exposure [facility] Start: 07-27-2021 End: 09-13-2022 Cigarette [facility] Start: 11-10-2021 End: 12-13-2021 History SDOH Alcohol Frequency 2 [facility] Start: 11-10-2021 End: 12-13-2021 History SDOH Alcohol Std Drinks 1 [facility] Start: 11-10-2021 End: 12-13-2021 History SDOH Social Connections Phone 5 [facility] Start: 11-10-2021 End: 12-13-2021 History SDOH Social Connections Living 7 [facility] Start: 11-10-2021 End: 12-13-2021 History SDOH Physical Activity DPW 4 [facility] Start: 11-10-2021 End: 12-13-2021 History SDOH Physical Activity MPS 3 [facility] Within the last year , have you been afraid of your partner or ex-partner? No [facility] Are you now , , , , never or living with a partner? Never [facility] How often to you hav e a drink containing alcohol? Monthly or less [facility] How many standard drinks containing alcohol do you have on a typical day? 1 or 2 [facility] How often do you hav e 6 or more drinks on 1 occasion? Never [facility] How hard is it for y ou to pay for the very basics like food, housing, medical care, and heating Not hard at all [facility] Do you feel stress - tense, restless, nervous, or anxious, or unable to sleep at night because your mind is troubled all the time - these days [OSQ] Rather much [facility] (I/We) worried wheth er (my/our) food would run out before (I/we) got money to buy more. Never true [facility] Start: 12-19-2017 Gender identity Identifies as female gender (finding) [facility] Start: 12-19-2017 Sexual orientation Heterosexual (finding) [facility] How hard is it for y ou to pay for the very basics like food, housing, medical care, and heating Not very hard [facility] Start: 12-14-2022 End: 05-26-2024 Alcohol intake Current drinker of alcohol (finding) [facility] Start: 12-14-2022 Alcohol Comment occasional/holidays [facility] Start: 03-09-2016 End: 10-31-2024 Sex Female (finding) [facility] Start: 05-26-2024 Alcohol Comment social [facility] Start: 09-01-2024 End: 10-07-2024 Alcoholic beverage intake Ex-drinker (finding) [facility] Start: 05-05-2024 [facility] Start: 2005 Sex Assigned At Female [facility] Medical Equipment Procedure Code Equipment Code Equipment Origin al Text Equipment Identifier Dates Screw 4 X 36mm C maynor Short Thrd - [id number] Start: 10-14-2019 Screw 4 X 40mm C maynor Short Thrd - [id number] Start: 10-14-2019 Screw 4 X 42mm C maynor Short Thrd - [id number] Start: 10-14-2019 Stent 6fr X 26cm Ureter W/O Wire - [id number])N/A, [id number] Start: 07-26-2022 Graft Soft Tissu e 20+ Mmx6+ Mm 8-12mm Anterior Tibialis - [id number] Start: 08-06-2022 [employer] 3. 4mm Peek W Orthocord - [id number] Start: 08-06-2022 [employer] 3. 4mm Peek W Orthocord - [id number] Start: 08-06-2022 Screw/Sheath Intrafix Advance 8mm X 23mm Br Small - [id number] Start: 08-06-2022 Clinical Notes 06-17-2020 to 12-07-2024 Note Date & Type Note Facility 12-07-2024 Progress note [facility] 11-19-2024 Evaluation note Diagnosis Onset Date Resolution [...] 2024 12:57pm UTI in acute 2024 12:57pm [facility] Work Phone: 1(794) 187-386509-18-2025 Evaluation note* Diagnosis Onset Date Resolution Status [...] UTI in acute December 07, 2024 8:14am [facility] Work Phone: 1(796) 620-884809-18-2025 Progress [facility] [address] [place] [address], [address] [place] [address] OFFICE VISIT Date of Service: 11/19/24 MR#: [id number] Acct: [id number] Name: ETHAN HIGH Rep #: [id number] : 2005 Provider: Dr. 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 was not happy with care there. Needs [...] Monitoring, Signs and Symptoms of Preeclampsia and [employer] ROS Const Denies fever(s) GI Reports [...] Tsang Signature: Date (if applicable) CC: ~ [facility]08-30-2025 Emergency department Note* Carissa Bianchi RN - 10/31/2024 3:34 PM EDT See downtime charting. [facility]08-30-2025 Emergency department Note* Carissa Bianchi RN - 10/31/2024 3:34 PM EDT See downtime charting. [facility] History of Present illness Narrative* Loyd Prado MD - 10/27/2024 8:45 AM EDT Images from the original note were not included. Maternal Medicine Co-Management Visit 10/27/2024 Referring Physician: Jana Sanchez MD, in [place], [place] Delivering Physician: Dr. Sanchez Ethanbita Singh is a 19 y.o. who presents for a return OB visit. Her EDC is EstimatedDate of Delivery: 01/26/25 giving her an EGA of 27 weeks.She reports good activity. She reports no signs or symptoms of urinary tract infection. She denies headaches or blurred vision. Complains of severe dyspepsia Her problem list is as follows: Problem List[1] SELECT [facility] CARDIO-OBSTETRICS PROGRAM Ethan Singh is a 19 [...] and is considering delivery there despite her OB-WELLNESS NURSE being in [place]. She prefers not to have an epidural [...] 13 years old. An echocardiogram at the [facility] revealed a small hole with minor [...] on September 29, 2024 6. Results of CHILD WELFARE SPECIALIST visit on October 07, 2024 with Lester Duong 7. Fetus growing at 47th percentile with normal amniotic fluid 8. Presently on Macrobid for UTI 9. History of nephrolithiasis IMPRESSION and PLAN per CHILD WELFARE SPECIALIST No problem-specific Assessment & Plan notes found [...] is no need for regular cardiology follow-ups.(Per CHILD WELFARE SPECIALIST) 2. POTS: he patient should maintain her [...] Dehydration Headache(784.0) Tired Constipation documented in this [facility] History of Present illness Narrative* Loyd [...] 6. Very active fetus. documented in this [facility]08-06-2025 History of Present illness Narrative* Mariposa [...] regarding plan of care. * Mary Guy, CHALK TESTER-SUPERVISOR [employer] - 10/07/2024 11:30 AM EDT [facility] CARDIO-OBSTETRICS PROGRAM Ethan Singh is a 19 [...] and is considering delivery there despite her OB-WELLNESS NURSE being in [place]. She prefers not to have an epidural [...] 13 years old. An echocardiogram at the [facility] revealed a small hole with minor [...] 09/22/2019 Added automatically from request for surgery [id number] Irregular periods 10/01/2016 Kidney stone Muscle tension [...] 2022 KNEE SURGERY Right 10/14/2019 [facility] OTHER SURGICAL 07/04/2018 gastric emptying with normal results [facility] COLONOSCOPY DIAGNOSTIC 2018 EGD DIAGNOSTIC 2019 APPENDECTOMY LAPAROSCOPIC 12/04/2017 [facility] TONSILLECTOMY ADENOIDECTOMY 01/2010 Gracie isaac. Family [...] on 05/26/2024), Disp: , Rfl: Prenat w/o K-XbGe-ExHw-DSS-FA ( vitamin) tablet, Take 1 tablet by [...] not hesitate to contact me. LEDY Jacques, [facility] Adult Congenital Heart Disease and Cardio-Obstetrics Program Office: [phone] The total time spent in this encounter, including pre-charting, euwb-oo-emax time, review of testing, and post visit documentation, is 31 minutes. documented in this encounterCleveland [facility]08-06-2025 Instructions* Patient Instructions* Mariposa Leon RN - 10/07/2024 11:30 AM EDT Plan from your visit today: As needed. Thank you for choosing [facility] for your cardiac care. If questions or concerns regarding your visit or treatment plan, please call: Adult Congenital Heart Disease Physicians/Providers: MD Caity Santamaria MD Isla McClelland, MD Bo Marshall, MD May Ling Mah, MD ([facility] only) Jose Beltran MD ([facility] only) [facility] Nurse Practitioners: LEDY Jacques APRN- CNP [facility] FELLOWS: MD Aaron Hernandez MD PRIMARY CONTACT INFORMATION: Adult Congenital Heart Disease Triage Nurses- [facility] Main Line [phone] opt 6; opt 4 phone tree options GASTON Mercado RN Kimberly Madison, RN Pulmonary Hypertension Coordinators- [facility] Sylvia Vail RN GASTON Roth APRN Michaela Schlegel, APRN Adult Congenital Heart Disease Nurse Practitioner- [facility] [phone] opt 6; opt 4 Lester Guy APRN, CNP Trina Cunningham, APRN, CNP MyCharjeannette messaging is often the best way to contact Adult Congenital Heart Disease National Sales Representative- [facility] For appointment scheduling/verification and general information Debbie Collier Main Line Phone Tree [phone] opt7 [facility] Congenital Team Contact for Nurse Practitioner, Nurse and Schedulers Go to the website below for further program information. Check out patient education featuring topics and videos related to adults and adolescents with congenital heart disease and provides valuable information from leading experts. [email or web address] Test results are reviewed at the time of your office visit. If additional testing is ordered, it may take 1-2 weeks for physician review and recommendations. Please call or send a Dexrex Gear message if you have not received a phone call or message via Mediastay with your results/recommendations. Holter/Event Monitors require at least 2 weeks from when you drop off your monitor, for physicians to review. Return recommendations notification may be via Mediastay message or phone call. If you have not received your Event/Mobile cardiac supervisor lime in the mail when expected, please contact our office [phone] or the device office [phone]. For a monitoring device beingmailed to you, [employer] Monitoring company b2b sales representative may contact you to verify your mailing address. Please contact [employer] staff directly for any troubleshooting needs with device. Medication Refills are routinely reviewed at your clinic visits. If you know you will be in need ofrefills, please let your providers be aware at time of visit. If in need of refills between visits,please contact our office 48-72 hours ahead of need or send a Mediastay message including name of specific medication, dosing, quantity of refill (30 day vs. 90 day supply preference) and name/locationof preferred pharmacy. Outside bloodwork needs faxed to our office for physician review at [phone]. [facility]arina[facility] is an available tool to securely access your online medical information and communicate with your healthcare team members - please ask to enroll during any [facility] appointment. If you experience a change in your symptoms, please notify this office at [phone] or call 911 if an emergent situation. Please leave your name, date of and question or concern with the nurse line staff if I am unavailable to take your call directly. Mediastay is an excellent resource for communication with [...] for your call message to be answered. [facility] patient testing and procedure instructions may be obtained at [email or web address] documented in this encounterCleveland Clinic [facility]07-08-2025 Nurse Note* Nursing Notes - Simona Romano RN - 09/08/2024 3:42 PM EDT Discharge instructions reviewed with patient, understanding verbalized. Denies further questions. Printed copy of AVS provided. Ambulatory off unit at this time. [facility]07-08-2025 Miscellaneous Notes* Nursing Notes - Simona [...] FHR 158-162 via doppler. documented in this encounterPromedica Toledo Hospital07-08-2025 Nurse Note* Nursing Notes - Simona Romano RN - 09/08/2024 3:[address] Bernstein notified of lab results. Appropriate for discharge home per physician. [facility]07-08-20[facility] Nurse Note* Nursing Notes - Liz Farley RN - 09/08/2024 2:[address] Bernstein notified of pt's arrival, SBAR report given. VO's received. [facility]07-08-2025 Nurse Note* Nursing Notes - Simona Romano RN - 09/08/2024 2:02 PM EDT FHR 158-162 via doppler. [facility]07-01-2025 History of Present illness Narrative* Loyd Prado MD - 09/01/2024 2:00 PM EDT High Risk Obstetric Consultation September 01, 2024 Referring Physician: Jana Sanchez MD in [place], [place] Reason for Consultation: POTS and Yola [...] week growth sonogram [facility]U [facility] History of Present illness Narrative* Loyd Prado [...] No change with pressure. documented in this encounterCleveland Clinic [facility]03-25-2025 History of Present illness Narrative* LEDY [...] fevers but states that she works for [employer]. History: Allergies Allergen Reactions Latex Atopic Dermatitis [...] 09/22/2019 Added automatically from request for surgery [id number] Irregular periods 10/01/2016 Kidney stone Muscle tension [...] Laterality: Right; Surgeon: Sulema Lazar MD; Location: [facility] PERIOP BREAST BIOPSY Left 04/25/2022 fibroadenoma LITHOTRIPSY 2022 KNEE SURGERY Right 10/14/2019 [facility] [place] OTHER SURGICAL 07/04/2018 gastric emptying with normal results [facility] COLONOSCOPY DIAGNOSTIC 2018 EGD DIAGNOSTIC 2019 APPENDECTOMY LAPAROSCOPIC 12/04/2017 [facility] TONSILLECTOMY ADENOIDECTOMY 01/2010 Gracie isaac. Social [...] to proceed with plan. 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 Social [...] Physical Activity: Insufficiently Active (12/13/2021) Received from [facility] Exercise Vital Sign Days of Exercise per Week: 3 days Minutes of Exercise per Session: 30 min Stress: Stress Concern Present (12/13/2021) Received from [facility] [employer] - Occupational Stress Questionnaire Feeling of Stress : Rather much Social Connections: Socially Isolated (12/13/2021) Received from [facility] Social Connection and Isolation Panel [NHANES] Frequency of Communication with Friends and Family: More than three times a week Frequency of Social Gatherings with Friends and Family: Once a week Attends Scientologist Services: Never Active Member of Clubs or Organizations: No Attends Club or Organization Meetings: Never Marital Status: Never Intimate Partner Violence: Unknown (12/26/2021) Received from [facility] Intimate Partner Violence If you are in [...] a flu-like illness. Discussed supportive home care, jrup-pha-fxqujbj medication. Work note provided. If symptoms worsen patient was advised to follow up in our office, primary care provider or the Emergency Dept. Benefits, Risks, Contraindications, and Complications of recommended treatments were explained. The patient verbalized understanding and agrees to proceed with plan. LEDY Nixon 04/19/2024 documented in this [facility]09-26-[facility] Hospital Discharge instructions* Discharge Instructions* Meme Prasad MD - 11/28/2023 10:33 PM EDT Advil, 400 mg, 3 times per day. Return for worsening weakening especially if associated with shortness a breath * Attachments The following attachments cannot be sent through Care Everywhere. * Chest Pain: Musculoskeletal (Mauritian) documented in this [facility]09-26-[facility]24 Physician Emergency department Note* Meme Parsad MD - 11/28/2023 10:02 PM EDT Emergency Department Report [facility] EMERGENCY DEPARTMENT Service Date:.11/28/23 PCP: Meme Gimenez [...] 09/22/2019 Added automatically from request for surgery [id number] Irregular periods 10/01/2016 Kidney stone Muscle tension [...] 2022 KNEE SURGERY Right 10/14/2019 [facility] OTHER SURGICAL 07/04/2018 gastric emptying with normal results [facility] COLONOSCOPY DIAGNOSTIC 2018 EGD DIAGNOSTIC 2018 APPENDECTOMY LAPAROSCOPIC 12/04/2017 [facility] TONSILLECTOMY ADENOIDECTOMY 01/2010 Gracie isaac. Allergies: [...] Physical Activity: Insufficiently Active (12/13/2021) Received from [facility] Exercise Vital Sign Days of Exercise per Week: 3 days Minutes of Exercise per Session: 30 min Stress: Stress Concern Present (12/13/2021) Received from [facility] [employer] - Occupational Stress Questionnaire Feeling of Stress : Rather much Social Connections: Socially Isolated (12/13/2021) Received from [facility] Social Connection and Isolation Panel [NHANES] Frequency of Communication with Friends and Family: More than three times a week Frequency of Social Gatherings with Friends and Family: Once a week Attends Scientologist Services: Never Active Member of Clubs or Organizations: No Attends Club or Organization Meetings: Never Marital Status: Never Intimate Partner Violence: Unknown (12/26/2021) Received from [facility] Intimate Partner Violence If you are in [...] Normal pharynx pink and moist. NECK: -Supple (lesn-wp-nhtxp). CARD: -Rate and rhythm: Regular -Murmurs: No [...] YELLOW YELLOW APPEARANCE, URINE CLEAR CLEAR Specific [place], Urine 1.025 1.010 - 1.025 PH URINE [...] information. . . Meme Prasad MD 11/28/232233 [facility]09-26-2024 Emergency department Note* Meme Prasad MD - 11/28/2023 10:02 PM EDT Emergency Department Report [facility] EMERGENCY DEPARTMENT Service Date:.11/28/23 PCP: Meme Gimenez [...] 09/22/2019 Added automatically from request for surgery [id number] Irregular periods 10/01/2016 Kidney stone Muscle tension [...] 2022 KNEE SURGERY Right 10/14/2019 [facility] OTHER SURGICAL 07/04/2018 gastric emptying with normal results [facility] COLONOSCOPY DIAGNOSTIC 2019 EGD DIAGNOSTIC 2019 APPENDECTOMY LAPAROSCOPIC 12/04/2017 [facility] TONSILLECTOMY ADENOIDECTOMY 01/2010 Gracie isaac. Allergies: [...] Physical Activity: Insufficiently Active (12/13/2021) Received from [facility] Exercise Vital Sign Days of Exercise per Week: 3 days Minutes of Exercise per Session: 30 min Stress: Stress Concern Present (12/13/2021) Received from [facility] [employer] - Occupational Stress Questionnaire Feeling of Stress : Rather much Social Connections: Socially Isolated (12/13/2021) Received from [facility] Social Connection and Isolation Panel [NHANES] Frequency of Communication with Friends and Family: More than three times a week Frequency of Social Gatherings with Friends and Family: Once a week Attends Scientologist Services: Never Active Member of Clubs or Organizations: No Attends Club or Organization Meetings: Never Marital Status: Never Intimate Partner Violence: Unknown (12/26/2021) Received from [facility] Intimate Partner Violence If you are in [...] Normal pharynx pink and moist. NECK: -Supple (pryd-wj-uzcpq). CARD: -Rate and rhythm: Regular -Murmurs: No [...] YELLOW YELLOW APPEARANCE, URINE CLEAR CLEAR Specific [place], Urine 1.025 1.010 - 1.025 PH URINE [...] Meme Prasad MD 11/28/232233 documented in this encounterProm[facility] Emergency department Note* Carolyn Gamez - 09/15/2023 7:33 PM EDT Pt verbalizes understanding of discharge instructions/follow up care/ and medications. Pt A&Ox4, Pt denies any further questions or needs. Pt ambulated out of room. [facility]07-14-2024 Emergency department Note* Carolyn Gamez - [...] noted, and provider informed. documented in this encounterPromedica [facility]edo Hospital07-14-2024 Emergency department Note* Sahil Anguiano RN - 09/15/2023 6:15 PM EDT While rounding on the pt, she informs me that there is a tick to her scalp. A tick is noted, and provider informed. [facility]05-21-2024 Emergency department Note* Padmini Hart RN - 07/23/2023 3:28 PM EDT Discussed discharge instructions with patient at this time. All questions and concerns addressed with no additional needs voiced. Pharmacy verified. Patient declines assistance to main entrance for discharge at this time. [facility]05-21-[facility] Emergency department Note* Padmini Hart RN [...] having increased abdominal pain documented in this encounterPromedica [facility]edo Hospital05-21-2024 Emergency department Note* Hi Mclean RN - 07/23/2023 11:43 AM EDT Arrives with c/o increased abdominal pain pt has an exploratory laparoscopy done 07/18/[address] Sanchez. Pt went home then Saturday started having increased abdominal pain [facility]05-17-2024 Nurse Note* Bhavya Ballard RN - [...] at this time. Transported via cart to [place] [address] Cart placed in lowest position. Call light [...] to monitor and is patient's normal. Anh Rodriguze advised okay to give pain medication with low HR. * Lauren Dexter RN - 07/19/2023 12:50 PM EDT Patient transported to PACU via cart with this RN and GRACIE Zhu. Report given to GASTON Galo. * Lauren Dexter RN - 07/19/2023 12:20 PM EDT OR 1 Temp- 65.3 degrees F OR 1 Hum- 51% documented in this encounterPromedica [facility] Hospital05-17-2024 Nurse Surgical operation note* Bhavya Ballard RN - 07/19/2023 2:35 PM EDT Patient is discharged via wheelchair and this nurse to vehicle driven by boyfriend to return home. Patient has discharge instructions and all personal belongings. Patient is alert, oriented and stable [facility]05-17-2024 Nurse Surgical operation note* Bhavya Ballard RN - 07/19/2023 2:25 PM EDT Patient ambulates to the with a stand by assist and voids clear, yellow urine tinged with blood [facility]05-17-2024 Nurse Note* Nursing Notes - Bhavya Ballard RN - 07/19/2023 2:14 PM EDT This nurse reviews discharge instructions with patient and patient's boyfriend. Both state understanding. No further education needed [facility]05-17-2024 Miscellaneous Notes* Nursing Notes - Bhavya Ballard RN - 07/19/2023 2:14 PM EDT This nurse reviews discharge instructions with patient and patient's boyfriend. Both state understanding. No further education needed * Op Note - Jana Sanchez MD - 07/19/2023 1:02 PM EDT OPERATIVE REPORT Facility Name: [facility] Name: Ethan Hernandez Date of : 2005 [...] See immediate op note documented in this encounterPromedica [facility]05-17-2024 Nurse Surgical operation note* Bhavya Ballard RN - 07/19/2023 2:11 PM EDT IV is saline locked [facility]05-17-2024 Nurse Surgical operation note* Jacklyn Martinez RN - 07/19/2023 1:46 PM EDT Discharged from PACU in stable condition at this time. Transported via cart to [facility] Cart placed in lowest position. Call light within reach. Pulse ox monitor on pt with alarms set. Report givento Bhavya FELDMAN. [facility]05-17-2024 Hospital Discharge instructions* Discharge Instructions* Bhavya [...] one or two days. documented in this encounterPromedica Toledo Hospital05-17-2024 Nurse Surgical operation note* Jacklyn Martinez RN - 07/19/2023 1:05 PM EDT Patient HR bouncing from 37-76. Patient in no distress and is asymptomatic at this time. Anh Lance notified at this time. He advised that if patient is asymptomatic to continue to monitor and is patient's normal. Anh Rodriguez advised okay to give pain medication with low HR. [facility]05-17-2024 Surgery Postoperative evaluation and management note* Op Note - Jana Sanchez MD - 07/19/2023 1:02 PM EDT OPERATIVE REPORT Facility Name: [facility] Name: Ethan Hernandez Date of : 2005 [...] patient tolerated procedure well. Jana Sanchez MD [facility]05-17-2024 Surgery Postoperative evaluation and management note* Brief Op Note - Jana Sanchez MD - 07/19/2023 1:02 PM EDT See immediate op [facility] Surgical operation note* Lauren Dexter RN - 07/19/2023 12:50 PM EDT Patient transported to PACU via cart with this RN and GRACIE Zhu. Report given to GASTON Galo. [facility]05-17-2024 Nurse Surgical operation note* Lauren Dexter RN - 07/19/2023 12:20 PM EDT OR 1 Temp- 65.3 degrees F OR 1 Hum- 51% [facility]05-06-2024 History of Present illness Narrative* eCle Diaz RN - 07/08/2023 12:16 PM EDT Images from the original note were not included. Called and spoke with Ethan-she denies any known family history of unexplained sudden . Is unaware of any family history of heart disease. Ethan Hernandez Female, 18 y.o., 2005 (M) DO Cele Hemphill RN Cc: Gladys Kay RN; Lauren Herndon RN Reviewed and may proceed as [...] HEART CATH/STENT PLACEMENT no documented in this [facility]02-01-2024 Emergency department Note* Kai Manzanares RN - 04/04/2023 3:00 PM EST Discharge and follow up instructions went over with patient and mother. All questions answered. Patient ambulated by herself with a steady gait. No signs of distress at time of discharge. [facility]02-01-2024 Emergency department Note* Kai Manzanares RN - 04/04/2023 3:00 PM EST Discharge and follow up instructions went over with patient and mother. All questions answered. Patient ambulated by herself with a steady gait. No signs of distress at time of discharge. documented in this [facility]11-17-2023 History of Present illness Narrative* Barney Jacques MA - 01/18/2023 8:42 AM EST Ethan did not show up for her Colonoscopy today 01-18-23. documented in this [id number] History of Present illness Narrative* Patti Song, PT - 11/13/2022 2:00 PM EDT [facility] OUTPATIENT REHABILITATION DAILY TREATMENT NOTE Today's [...] 08/29/22. Progress note completed 10/16/22 Therapeutic Exercise (04253) Intervention Upright bike seat 4, lvl 6 resistance, 6min Parameters Step stretches HS, gastroc R 20sec x 3 Intervention Functional Testing, review of goals, HEP review x10 minutes Intervention Jogging in hallway 50% speed 75ft x4 Parameters -- Intervention -- Parameters Shuttle 68# bilat 2x25, SL R 37# 2 x 25 Intervention -- Parameters DL line hops forward/backward and lateral [id number] ea Intervention 8 inch box jump up/downs [...] this visit Patti Song PT STATE LICENSE, [id number] documented in this [id number] History of Present illness Narrative* Sulema Lazar [...] up in 6 weeks documented in this encounterCleveland [facility]09-05-2023 History of Present illness Narrative* Patti Song, PT - 11/06/2022 2:00 PM EDT [facility] OUTPATIENT REHABIL[facility]ATION DAILY TREATMENT NOTE Today's [...] 08/29/22. Progress note completed 10/16/22 Therapeutic Exercise (46203) Intervention Upright bike seat 4, lvl 6 [...] Parameters DL line hops forward/backward and lateral 9f60xpt ea Intervention 8 inch box jump up/downs [...] treatment note Patti Song PT STATE LICENSE, [id number] documented in this [id number] History of Present illness Narrative* Natali Hope PTA - 10/26/2022 9:30 AM EDT [facility] OUTPATIENT REHABILITATION DAILY TREATMENT NOTE Today's [...] 08/29/22. Progress note completed 10/16/22 Therapeutic Exercise (88470) Intervention Upright bike seat 4, lvl 6 [...] Parameters DL line hops forward/backward and lateral [id number] ea (pt feels like decreased symmetry with [...] functional mobility. Natali Hope PTA STATE LICENSE, [id number] documented in this [id number] History of Present illness Narrative* Sarah Mckeon PTA - 10/19/2022 8:45 AM EDT [facility] OUTPATIENT REHABILITATION DAILY TREATMENT NOTE Today's [...] 08/29/22. Progress note completed 10/16/22 Therapeutic Exercise (11414) Intervention Upright bike seat 4, lvl 6 [...] per protocol Sarah Mckeon PTA STATE LICENSE, [id number] documented in this [id number] History of Present illness Narrative* Patti Song, PT - 10/16/2022 9:30 AM EDT [facility] OUTPATIENT REHABILITATION DAILY TREATMENT NOTE Today's [...] 08/29/22. Progress note completed 09/19/22 Therapeutic Exercise (05109) Intervention Upright bike seat 8, lvl 5.5 [...] protocol, running/jumping Patti Song, PT STATE LICENSE, [id number] documented in this [id number] History of Present illness Narrative* Patti Song PT - 10/12/2022 9:30 AM EDT [facility] DAILY TREATMENT NOTE Today's [...] 08/29/22. Progress note completed 09/19/22 Therapeutic Exercise (45882) Intervention Upright bike seat 8, lvl 5.5 [...] per protocol Patti Song PT STATE LICENSE, [id number] documented in this [id number] History of Present illness Narrative* Patti Song, PT - 10/02/2022 9:30 AM EDT [facility] DAILY TREATMENT NOTE Today's [...] 08/29/22. Progress note completed 09/19/22 Therapeutic Exercise (12987) Intervention Upright bike seat 8, lvl 5 [...] inright knee Patti Song PT STATE LICENSE, [id number] documented in this [id number] History of Present illness Narrative* Kimo Rojo PT - 09/28/2022 8:45 AM EDT [facility] DAILY TREATMENT NOTE Today's [...] 08/29/22. Progress note completed 09/19/22 Therapeutic Exercise (69103) Intervention Upright bike seat 8, lvl 5 [...] inright knee Kimo Rojo PT STATE LICENSE, [id number] documented in this [id number] History of Present illness Narrative* BARNEY Escobedo [...] -Follow up 6 weeks [facility] History of Present illness Narrative* Kimo Rojo PT - 09/24/2022 8:45 AM EDT [facility] DAILY TREATMENT NOTE Today's [...] 08/29/22. Progress note completed 09/19/22 Therapeutic Exercise (45757) Intervention Upright bike seat 8, lvl 5 [...] per protocol Kimo Rojo PT STATE LICENSE, [id number] documented in this [id number] History of Present illness Narrative* Patti Song, PT - 09/19/2022 8:45 AM EDT [facility] DAILY TREATMENT NOTE Today's [...] 09/26 or by 10th visit Therapeutic Exercise (45584) Intervention Recumbant bike seat 11, lvl 3 [...] per protocol Patti Song PT STATE LICENSE, [id number] documented in this [id number] History of Present illness Narrative* Natali Hope PTA - 09/17/2022 8:45 AM EDT [facility] DAILY TREATMENT NOTE Today's [...] 09/26 or by 10th visit Therapeutic Exercise (52474) Intervention Recumbant bike seat 11, lvl 2 [...] per protocol. Natali Hope PTA STATE LICENSE, [id number] documented in this [id number] History of Present illness Narrative* Alistair Orellana - 09/13/2022 9:30 AM EDT Patient offered a medical commercial correspondent for sensitive exam. Pt declined. [facility] History of Present illness Narrative* Makayla Guevara RN - 09/13/2022 9:00 AM EDT Ethan Hernandez was offered and declined a Medical Earthmoving Labourer for this exam/procedure/test 09/13/2022. 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 Social History Social History Narrative Not [...] -Referring Provider for today's consult: Meme Gimenez APRN-SUPERVISOR SHRIMP [employer]OND -Primary Care Provider: Meme Gimenez documented [facility] History of Present illness Narrative* Natali Hope, FRIEND OF THE COURT - 09/12/2022 8:45 AM EDT [facility] DAILY TREATMENT NOTE Today's [...] 09/26 or by 10th visit Therapeutic Exercise (00109) Intervention Recumbant bike seat 11, lvl 2 [...] 2 resistance x 20 RLE Gait Training (55825) Intervention Gait training with focus on R [...] per protocol. Natali Hope PTA STATE LICENSE, [id number] documented in this [id number] History of Present illness Narrative* Susan Almonte PTA - 09/10/2022 8:45 AM EDT [facility] DAILY TREATMENT NOTE Today's [...] 09/26 or by 10th visit Therapeutic Exercise (96997) Intervention Quad Sets (supine, Prone, Standing)- 25 [...] 2 resistance x 20 RLE Gait Training (83088) Intervention Gait training with focus on R [...] per Protocol. Susan Almonte PTA State License, [id number] documented in this [id number] History of Present illness Narrative* Natali Hope PTA - 09/07/2022 8:45 AM EDT [facility] DAILY TREATMENT NOTE Today's [...] 5; 8:45-9:25 Vitals MPFL Protocol Therapeutic Exercise (83289) Intervention Quad Sets (supine, Prone, Standing)- 25 [...] L hip flexion/ext x20 ea Gait Training (33483) Intervention Gait training with focus on R [...] per protocol. Natali Hope PTA STATE LICENSE, [id number] documented in this [id number] History of Present illness Narrative* Natali Hope PTA - 09/05/2022 8:45 AM EDT [facility] DAILY TREATMENT NOTE Today's [...] 4; 8:45-9:28 Vitals MPFL Protocol Therapeutic Exercise (94691) Intervention Quad Sets (supine, Prone, Standing)- 25 [...] x20 Intervention Shuttle (next visit) Gait Training (22700) Intervention Gait training with focus on R [...] per protocol. Natali Hope PTA STATE LICENSE, [id number] documented in this [id number] History of Present illness Narrative* Susan Almonte PTA - 09/03/2022 7:15 AM EDT [facility] DAILY TREATMENT NOTE Today's [...] 3; 7:16-8:00 Vitals MPFL Protocol Therapeutic Exercise (24571) Intervention Quad Sets (supine, Prone, Standin)- 25 [...] Intervention Toe/Heel raises x 10 Gait Training (75358) Intervention Gait training with focus on R [...] increasing strength and ROM according to protocol uSsan Almonte PTA State License, [id number] documented in this [id number] History of Present illness Narrative* Susan Almonte PTA - 08/31/2022 9:30 AM EDT [facility] DAILY TREATMENT NOTE Today's [...] 07/31/22 Notes Visit 2; 9:40-10:18 Therapeutic Exercise (05765) Intervention Quad Sets (supine, Prone, Standin)- 25 [...] hamstring curls x 10 R Gait Training (83432) Intervention Gait training with focus on R [...] to protocol. Susan Almonte PTA State License, [id number] documented in this [id number] History of Present illness Narrative* Kimo Rojo, PT - 08/29/2022 12:30 PM EDT Images from the original note were not included. [facility] Evaluation Today's Date 08/29/2022 [...] lives with others. 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, regular PA/exercise, functional mobility, walking, stairs, recreational [...] Reconstruction R Knee- 07/31/22 Notes Visit 1; 5812-8226 Therapeutic Exercise (00159) Intervention Quad Sets (supine, Prone, Standin)- 20 x 5 sec hold each Parameters Heel Slides (AROM, AAROM, PROM)- 10 x 10 sec hold each Intervention Glute Sets- 20 x 5 sec hold each Parameters SLR (Flex, Abd, Add)- x 20 each without extensor lag Intervention Patient education on pain management, swelling control, gait sequence, protocol, and home safety x 10 min Gait Training (41028) Intervention Gait training with focus on R knee active flexion during swing phase, heel stroke and toe off x 5 min PT Treatment Times Therex Total Time 25 Gait Training Total Time 5 Direct Treatment Time 30 Total Treatment Time 60 30 min evaluation Treatment Plan: Frequency of Visits: 3 times per week Duration: 6 weeks Interventions: Therapeutic Exercise (20099), Neuromuscular Re-Education (13760), Manual Therapy (26382), Therapeutic/ Functional Activities (15511), Gait Training (26905), Electrical Stimulation - Unattended (06634), and Vasopneumatic (14524) Rehab Potential: good Goals: Physical Therapy Ortho [...] and ROM Kimo Rojo PT STATE LICENSE, [id number] documented in this [id number] History of Present illness Narrative* Kevin Luna, [...] -Follow up 3 weeks documented in this [facility]06-05-[facility] Miscellaneous Notes* Op Note - Sulema [...] than 1 hour. SURGEON(S): Sulema Lazar MD BOOKBINDER APPRENTICE: Kevin Luna PA-C. Please note, Mr. Luna's [...] a slightly distal to proximal and slightly vjwjriigx-rc-jlujhwfa direction under fluoroscopic guidance, confirming we were [...] MD Sulema Arita MD ATTENDING TLM/MedQ JOB: [id number] DOC: [id number] * Brief Op Note - Sulema Lazar MD - 08/06/2022 9:56 AM EDT Ethan Hernandez ([id number]) PRE OPERATIVE DIAGNOSIS 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] POST OPERATIVE DIAGNOSIS Post-Op Diagnosis Codes: * 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] PROCEDURE PERFORMED Procedure(s) (LRB): RIGHT KNEE---ARTHROSCOPY, MPFL RECONSTRUCTION WITH ALLOGRAFT (Right) SURGEON Surgeon(s) and Role: * Sulema Lazar MD - Primary ANESTHESIOLOGIST Anesthesiologist: Juan Tinoco MD SENIOR MEDICAL TECHNOLOGIST: Anushka Davis APRN-SENIOR MEDICAL TECHNOLOGIST SURGICAL STAFF Structural Architect: Nu Virgen RN; Viki Gillespie RN Physician Continuous Mining Operator: Kevin Luna, BARNEY Scrub Person: Aaliyah Fish X-Ray Technologist: Frandy Gregory COMPLICATIONS None ESTIMATED BLOOD LOSS < 30 ml SPECIMENS No specimen sent * No specimens in log * Sulema Lazar MD August 06, 2022 9:56 AM documented [facility] this [facility] Note* Op Note - Sulema Lazar MD [...] than 1 hour. SURGEON(S): Sulema Lazar MD BOOKBINDER APPRENTICE: Kevin Luna PA-C. Please note, Mr. Luna's [...] a slightly distal to proximal and slightly agoonfilz-cr-nrvdchbr direction under fluoroscopic guidance, confirming we were [...] MD Sulema Arita MD ATTENDING TLM/MedQ JOB: [id number] DOC: [id number] [facility] Nurse Surgical operation note* Chloé Vuong RN - 08/06/2022 11:54 AM EDT 1140 mom at bedside, DC instruction, knee scope exercise, PT Rx and disability play card Px were given, verbalized understanding. [facility]* Chloé Vuong RN - [...] to GASTON Luevano. documented in this encounter[facility] Nurse Surgical operation note* Viki Gillespie RN - 08/06/2022 10:18 AM EDT Pt transferred to PACU via cart. Accompanied by RN and anesthesia provider. Dressing D/I. ISBAR handoff given to GASTON Luevano. 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] PROCEDURE PERFORMED Procedure(s) (LRB): RIGHT KNEE---ARTHROSCOPY, MPFL RECONSTRUCTION WITH ALLOGRAFT (Right) SURGEON Surgeon(s) and Role: * Sulema Lazar MD - Primary ANESTHESIOLOGIST Anesthesiologist: Juan Tinoco MD SENIOR MEDICAL TECHNOLOGIST: Anushka Davis APRN-SENIOR MEDICAL TECHNOLOGIST SURGICAL STAFF Structural Architect: Nu Virgen RN; Viki Gillespie RN Physician Continuous Mining Operator: BARNEY Escobedo Scrub Person: Aaliyah Fish X-Ray Technologist: Frandy Gregory COMPLICATIONS None ESTIMATED BLOOD LOSS < 30 ml SPECIMENS No specimen sent * No specimens in log * Sulema Lazar MD August 06, 2022 9:56 AM [facility] Discharge instructions* Discharge Instructions* BARNEY Escobedo - 08/06/2022 8:41 AM EDT KNEE MEDIAL PATELLOFEMORAL LIGAMENT SURGERY POSTOPERATIVE INSTRUCTIONS POSTOPERATIVE APPOINTMENT The first postoperative appointment is typically 8-15 days following surgery. Call the office at [phone] if you are unsure of the date and time of your first postoperative appointment. Please note - as a standard part of your postoperative care you will be seeing a mix of the Physician or the Physician Continuous Mining Operator (PA) for your follow up visits. The Physician Continuous Mining Operator is a healthcare professional who serves as [...] taking the medication with food. Try an vrzk-otf-najwguy laxative for constipation if necessary. Do not [...] your PT can be accessed on the [facility] Sports Medicine website (Google search [facility] rehab protocols ). Alternatively, we can provide [...] hours. EMERGENCY CARE Contact Dr. Lazar's office ([phone]) if you experience any of the following: Calf pain, chest pain, or shortness of breath that does not go away. Fever over 101 degrees (low-grade fever after surgery is not uncommon) Spreading redness, pus-like drainage, or excessive bloody drainage from incisions Painful swelling or numbness Unrelenting pain Excessive nausea or vomiting For after-hours emergencies--call the main office number at [phone] to contact the on-call orthopedic physician. IF ANY OF THE ABOVE ISSUES CONTINUE TO ESCALATE OUT OF CONTROL GO TO THE NEAREST EMERGENCY ROOM SOON POSSIBLE. documented in this [facility]06[facility] History and physical note* Sulema Lazar [...] right knee arthroscopy with MPFL reconstruction. [facility] Work Phone: [phone] History and physical note* Sulema Lazar MD [...] with MPFL reconstruction. documented in this [facility] History of Present illness Narrative* Candace Trammell [...] follow up as needed Candace Trammell MD [facility] Urologic Oncology documented in this [id number] History of Present illness Narrative* Candace Trammell [...] follow up as needed Candace Trammell MD [facility] Urologic Oncology documented in this [id number] History of Present illness Narrative* Sulema Lazar [...] to contact the office. documented in this [facility]04[facility]23 History of Present illness Narrative* Sulema [...] PF stabilization brace given. documented in this [facility]03[facility]23 Physician Emergency department Note* Roosevelt Gonzalez MD - 05/14/2022 1:09 PM EDT Emergency Department Report [facility] EMERGENCY DEPARTMENT Service Date:.05/14/22 PCP: Meme Gimenez [...] unspecified laterality 12/02/2017 [facility] echocardi[facility] 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 Added automatically from request for surgery [id number] Irregular periods 10/01/2016 Muscle tension headache 03/18/2017 Nausea and vomiting 11/01/2020 Non-cardiac chest pain 11/01/2020 Pharyngitis 11/01/2020 Post-concussion syndrome 06/21/2016 Viral gastroenteritis 05/20/2019 Past Surgical History: Past Surgical History: Procedure Laterality Date KNEE SURGERY Right 10/14/2019 [facility] OTHER SURGICAL 07/04/2018 gastric emptying with normal results [facility] APPENDECTOMY LAPAROSCOPIC 12/04/2017 [facility] TONSILLECTOMY ADENOIDECTOMY 01/2010 Gracie isaac. Allergies: [...] . . Roosevelt Gonzalez MD 05/14/22 [address] [facility] Work Phone: 1(575) 975-912603-13-2023 Emergency department Note* Roosevelt Gonzalez MD - 05/14/2022 1:09 PM EDT Emergency Department Report [facility] EMERGENCY DEPARTMENT Service Date:.05/14/22 PCP: Meme Gimenez [...] unspecified laterality 12/02/2017 Hx of echocardiogram 11/30/[address] [facility] 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 Added automatically from request for surgery [id number] Irregular periods 10/01/2016 Muscle tension headache 03/18/2017 Nausea and vomiting 11/01/2020 Non-cardiac chest pain 11/01/2020 Pharyngitis 11/01/2020 Post-concussion syndrome 06/21/2016 Viral gastroenteritis 05/20/2019 Past Surgical History: Past Surgical History: Procedure Laterality Date KNEE SURGERY Right 10/14/2019 [facility] OTHER SURGICAL 07/04/2018 gastric emptying with normal results [facility] APPENDECTOMY LAPAROSCOPIC 12/04/2017 [facility] TONSILLECTOMY ADENOIDECTOMY 01/2010 [facility] Allergies: [...] information. . . Roosevelt Gonzalez MD 05/14/22 7840 documented in this [facility] History of Present illness Narrative* Fabiola Lamar RN - 05/04/2022 11:19 AM EST Opened for flowsheet documented in this [id number] History of Present illness Narrative* Dallin More MD - 05/01/2022 1:04 PM EST Images from the original note were not included. BREAST CONSULT HISTORY & PHYSICAL EXAMINATION Patient Name: Ethan Hernandez MR #: [id number] : 2005 Physicians: Meme Gimenez CNP (Family); [...] years Age of menopause at n/a} years. FACILITY SERVICE ASSOCIATE History: She is G 0 P 0 [...] Location: Main OR; Service: Orthopedic COLONOSCOPY 12/12/2018 [facility] ESOPHAGOGASTRODUODENOSCOPY 12/12/2018 [facility] TONSILLECTOMY age 4 US BREAST BIOPSY [...] Friends and Family: Once a week Attends Scientologist Services: Never Active Member of Clubs or [...] breast pain, would recommend the use of fhws-nkn-gjhtlur Tylenol andibuprofen. Can have discussion with her family physician about use of oral contraception 1. 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 documented in this [id number] History of Present illness Narrative* Yina Ahn CNP - 04/23/2022 11:32 AM EST Ethan Hernandez 17 y.o. 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 Patient states she has been dealing with GI issues since she was 7 years old. Was seeing GI at [facility] and had EGD and colonoscopy 12/12/2018 [facility]--both were normal. She had gastric emptying [...] times a day was recommended by previous wet cleaner machine, she says they told her she was anorexic and she needed to eat. Patient denies anorexia. 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 Rates stools 3-4 on the [place] stool scale. Denies anylaxative use. She does [...] Location: Main OR; Service: Orthopedic COLONOSCOPY 12/12/2018 [facility] ESOPHAGOGASTRODUODENOSCOPY 12/12/2018 [facility] TONSILLECTOMY age 4 Social History: Social [...] Friends and Family: Once a week Attends Scientologist Services: Never Active Member of Clubs or [...] suspected, consider HLA-DQ typing. Test Performed by: [place] [address] Operating Room Registered Nurse: Sahil Osullivan M.D. Ph.D.; CLIA# [id number] Insulin 02/06/2022 6.0 0.0 - 20.0 mcIU/mL Final Tissue Transglutaminase IgA Ab 02/06/2022 <1.2 <4.0 (Negative) U/mL Final Test Performed by: [place] [address] Operating Room Registered Nurse: Sahil Osullivan M.D. Ph.D.; CLIA# [id number] Radiology: [place] GASTROINTESTINAL -- Nuclear Medicine Impression Delayed gastric emptying of the liquid phase with normal gastric emptying of the solid phase of a dual phase liquid/solid meal. Narrative CLINICAL HISTORY: 16-year-old with chronic nausea. Evaluate gastric emptying. COMPARISON: 07/04/2018. PROCEDURE COMMENTS: The patient was offered a standard meal of Xu-43m-lbjvlu colloid-labelled egg with bread and jam and clear liquid containing Ga-67. The patient consumed 4 ounces of egg, none of the toast, none of the jam and 4 ounces of liquid. Measurements of gastric emptying were obtained at one, two, three, and four hours. Percent gastric emptying was calculated by the conjugate view/geometric mean method. Radiopharmaceutical: Zk-12h-svejxx colloid-labelled egg Administered activity: 0.27 mCi Route: By mouth Radiopharmaceutical: Mc-88-ouafwyf Administered activity: 0.086 mCi Route: By mouth [...] patient was offered a standard meal of Sg-20f-hvzuww colloid-labelled egg with bread and jam and clear liquid containing Ga-67. The patient consumed 4 ounces of egg, none of the toast, none of the jam and 4 ounces of liquid. Measurements of gastric emptying were obtained at one, two, three, and four hours. Percent gastric emptying was calculated by the conjugate view/geometric mean method. Radiopharmaceutical: Lt-27u-rmjwcl colloid-labelled egg Administered activity: 0.27 mCi Route: By mouth Radiopharmaceutical: Ev-33-qrbpcmw Administered activity: 0.086 mCi Route: By mouth [...] Resulted: 11/17/21 16:42 Received From: [facility] Assessment & Plan: Chronic constipation- History of gastroparesis--gastric emptying study completed 11/17/2021 Supposed to have repeat EGD and colonoscopy unable to tolerate MiraLAX prep procedure was canceled and [facility] Completed anorectal manometry 01/2022--unable to find results Other symptoms include nausea, bloating, early satiety, abdominal pain Takes Senokot 4 times a day--out recently but when taking only has 1-3 BMs a week Increased water intake and activity 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 Occasional wrong-word or sound-like substitutions may have occurred due to inherent limitations of the voice recognition software. Please read the chart carefully and recognize, using context, where the substitutions have occurred. documented in this [id number] History of Present illness Narrative* Fabiola Lamar RN - 04/17/2022 10:34 AM EST Biopsy scheduled per documented in this [id number] History of Present illness Narrative* Dallin More MD - 04/17/2022 9:50 AM EST Images from the original note were not included. BREAST CONSULT HISTORY & PHYSICAL EXAMINATION Patient Name: Ethan Hernandez MR #: [id number] : 2005 Physicians: Meme Gimenez CNP (Family); [...] years Age of menopause at n/a} years. FACILITY SERVICE ASSOCIATE History: She is G 0 P 0 [...] Location: Main OR; Service: Orthopedic COLONOSCOPY 12/12/2018 [facility] ESOPHAGOGASTRODUODENOSCOPY 12/12/2018 [facility] TONSILLECTOMY age 4 Family History Problem [...] Friends and Family: Once a week Attends Scientologist Services: Never Active Member of Clubs or [...] time 30 minutes, greater than 50% spent uhpl-rv-shxa with the patient obtaining history, performing exam explaining her imaging and coordinating care documented in this [id number] Physician Emergency department Note* Nathaniel Reyes MD - 01/04/2022 2:16 PM EDT EKG: Sinus rhythm at 67 beats per minute. [place] is normal. There is sinus arrhythmia. DE interval is 114 milliseconds. QRS duration is 96 milliseconds. There is no acute ST elevation on the tracing. No significant ectopy. No evidence of delta waves. QT interval appears to be within normal limits for rate. It is similar to previous tracing done yesterday, January 03, 2022 Nathaniel Reyes MD 01/04/22 [address] [facility] Work Phone: 1(210) 789-889011-03-2022 Emergency department Note* Nathaniel Reyes MD - 01/04/2022 2:16 PM EDT EKG: Sinus rhythm at 67 beats per minute. [place] is normal. There is sinus arrhythmia. DE interval is 114 milliseconds. QRS duration is [...] reports left-sided jaw pain. [facility]* Tasneem Betancur RN - 01/04/2022 2:01 PM EDT Pt sent to ER, by Dr. Rodriguez's office, with c/o shakiness, headache, and intermittent tachycardia worse today. Pt denies chest pain, but does reports left-sided jaw pain. [facility] Emergency [facility] Note* Jenae Arizmendi RN - 01/03/2022 3:43 PM EDT sandwich maker placed on patient by cardiology. [facility] Emergency department Note* Jenae Arizmendi RN - 01/03/2022 3:43 PM EDT sandwich maker placed on patient by cardiology. * Nathaniel Reyes MD - 01/03/2022 1:33 PM EDT EKG: Sinus rhythm at 86 beats per minute. DE interval is 106 milliseconds. QRS durations 88 [...] hx of POTT disease [facility] Phys[facility] Emergency department Note* Nathaniel Reyes MD - 01/03/2022 1:33 PM EDT EKG: Sinus rhythm at 86 beats per minute. DE interval is 106 milliseconds. QRS durations 88 milliseconds. I do not see obvious delta waves. No acute ST elevation is seen. No significant ectopy. axis is slightly rightward. No old tracing for comparison. It looks like there was an EKG ordered in 2018 but it was never performed. Nathaniel Reyes MD 01/03/22 [facility] Work Phone: [phone]) 877-504411-02-2022 Emergency department Note* Kirstin Dexter RN - 01/03/2022 12:48 PM EDT Pt arrives from home c/o sweating more than normal, elevated HR, and feeling weak, reports hx of POTT disease [facility] History of Present illness Narrative* Natalie Smalls CNP - 12/05/2021 1:56 PM EDT DATE: 12/05/2021 CHIEF COMPLAINT: Chief Complaint Patient presents with recurrent kidney stones HISTORY OF PRESENT ILLNESS: Ethan Hernandez is a 16 y.o. female with history of renal stones in [facility] , has seen urology in the past [...] Friends and Family: Once a week Attends Scientologist Services: Never Active Member of Clubs or [...] in 2019 showed tiny stones Natalie Smalls [facility] documented in this [id number] History of Present illness Narrative* Mary Miguel [...] the MRIs are performed. documented in this [id number] History of Present illness Narrative* Lauren Nuñez LPN - 02/22/2021 11:37 AM EST Peer to peer done with patients insurance today by this nurse. Insurance company wants xray's dedicated to that hip, 4 weeks of therapy and clinical follow up. They state at that time then it can be resubmitted. documented in this [id number] History of Present illness Narrative* Milton Leos [...] 09/22/2019 Added automatically from request for surgery [id number] Irregular periods 10/01/2016 Muscle tension headache 03/18/2017 Nausea and vomiting 11/01/2020 Non-cardiac chest pain 11/01/2020 Pharyngitis 11/01/2020 Post-concussion syndrome 06/21/2016 Viral gastroenteritis 05/20/2019 Past Surgical History: Procedure Laterality Date KNEE SURGERY Right 10/14/2019 [facility] OTHER SURGICAL 07/04/2018 gastric emptying with normal results [facility] APPENDECTOMY LAPAROSCOPIC 12/04/2017 [facility] TONSILLECTOMY ADENOIDECTOMY 01/2010 Gracie isaac. Family [...] Nursing Assessment: Physical Exam documented in this [facility] History of Present illness Narrative* Mary Miguel MD - 12/29/2020 5:25 PM EDT Ethan comes in today for a followup of her right knee as well as her right hip. She says the patella she still feels like there is hypermobility. If you will recall, she suffers with Buxton-Danlos syndrome and she also has had right [...] weeks after the MRI. documented in this [id number] History of Present illness Narrative* Mary Miguel MD - 09/30/2020 6:24 PM EDT Dictation on: 09/30/2020 6:25 PM by: MARY MIGUEL [[id number]] documented in this [id number] History of Present illness Narrative* Jenni Alegre LPN - 08/08/2020 11:00 AM EDT Pt states burning and pain with urination, lower back pain for 2 days. documented in this [facility] Miscellaneous Notes* Addendum Note - Milton Leos MD - 08/08/2020 11:00 AM EDT Addended by: MILTON LEOS on: 08/08/2020 11:56 AM Modules accepted: Orders * Addendum Note - Jenni Alegre LPN - 08/08/2020 11:00 AM EDT Addended by: JENNI ALEGRE on: 08/08/2020 11:35 AM Modules accepted: Orders documented in this [facility] Emergency department Note* Pedro Siddiqui Jr., MD - 06/17/2020 3:24 PM EDT ED PROVIDER NOTE [facility] EMERGENCY DEPARTMENT NAME: Ethan Hernandez AGE: 15 y.o. : 2005 VISIT DATE: 06/17/2020 CSN: [id number] PCP: Milton Leos MD Chief Complaint Patient presents with Abdominal Pain no regular BM in over a month. Have tried several ways, enemas and laxitives with no results. Patient states she has not been able to poop for almost a month. She has been in contact with hergastroenterology team in [place] who started her on a cleanout and [...] file Gets together: Not on file Attends jew service: Not on file Active member of [...] Colorless, Yellow Clarity, Urine Clear Clear Specific [place] 1.020 1.005 - 1.025 pH, Urine 7.5 [...] mom plan for follow-up with gastroenterology at [place].In the meantime continue clear oral fluid hydration [...] ELEAZAR to schedule appointment in 1-3 days [address] [facility] [address] Contact information for after-discharge care Follow-up information has not been specified. Pedro Siddiqui Jr., MD 06/17/20 7950 * Alexis Manzanares, GASTON - 06/17/2020 3:18 PM EDT Pt has Yola Danlos sx and is usually seen at [facility]. Pt and parent have been in contact with them and done what they have instructed with no results. [facility] Diagnosis Generalized abdominal pain- Primary Abdominal pain, generalized Abdominal pain in female patient [facility] Diagnosis Urinary pain- Primary Renal colic [facility] Diagnosis S/P right knee arthroscopy- Primary Yola-Danlos disease Yola-Danlos syndrome [facility]* Diagnosis Tear of right acetabular labrum, initial encounter- Primary [facility]* Diagnosis Instability of right patellofemoral joint- Primary Yola-Danlos disease Yola-Danlos syndrome [facility]* Diagnosis Sore throat- Primary Acute pharyngitis Viral syndrome Unspecified viral infection, in conditions classified elsewhere and of unspecified site [facility] Diagnosis Tear of right acetabular labrum, initial encounter- Primary Instability of right patellofemoral joint [facility]* Diagnosis Tear of right acetabular labrum, initial encounter- Primary Tear of left acetabular labrum, subsequent encounter [facility]* Diagnosis Hematuria, unspecified type- Primary Recurrent kidney stones [facility]* Diagnosis Abnormal EKG- Primary Nonspecific abnormal electrocardiogram (ECG) (EKG) Palpitations documented in this encounter [facility]* Diagnosis Shakiness- Primary Abnormal involuntary movements documented in this encounter [facility] note* Diagnosis Abnormal finding on imaging- Primary Other nonspecific (abnormal) findings on radiological and other examinations of body structure Breast lump in upper outer quadrant Lump or mass in breast Family history of breast cancer Family history of malignant neoplasm of breast documented in [facility]* Diagnosis Chronic constipation- Primary Unspecified constipation Bloating Flatulence, eructation, and gas pain Nausea Nausea alone Abdominal pain, unspecified abdominal location Early satiety documented in this [facility]* Diagnosis Breast fibroadenoma, 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 [facility]* Diagnosis Contusion of right knee, initial encounter- Primary documented in this encounter [facility]* Diagnosis Right knee pain, unspecified chronicity- Primary [facility]* Diagnosis Right knee pain, unspecified chronicity documented in [facility]* Diagnosis Right knee pain, unspecified chronicity documented [facility]* Diagnosis Patellar instability of right knee- Primary Other specified disorders of lower leg joint documented [facility]* Diagnosis Right ureteral stone- Primary Right ureteral stone- Primary Right ureteral stone [facility]* Diagnosis Right ureteral stone [N20.1 (ICD-10-CM)]- Primary documented in this encounter [facility]* Diagnosis Patellofemoral instability, right- Primary [facility]* Diagnosis S/P knee surgery- Primary Other postprocedural status S/P knee surgery Other postprocedural status documented in this [facility]* Diagnosis S/P knee surgery Other postprocedural status [facility]* Diagnosis Tear of MCL (medial collateral [...] of breast, left [facility] Diagnosis 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breast, left [facility]* Diagnosis Tear of MCL (medial [...] disease Yola-Danlos syndrome [facility]* Diagnosis S/P knee surgery- Primary Other postprocedural status Patellar instability of right knee Other specified disorders of lower leg joint [facility] Diagnosis Tear of MCL (medial collateral ligament) of knee, right, initial encounter- Primary 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 [facility]* Diagnosis Tear of MCL (medial collateral ligament) of knee, right, initial encounter- Primary 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 [facility]* Diagnosis Tear of MCL (medial collateral ligament) of knee, right, initial encounter- Primary 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 [facility]* Diagnosis Tear of MCL (medial collateral ligament) of knee, right, initial encounter- Primary 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 [facility] Diagnosis S/P knee surgery- Primary Other postprocedural status documented [facility]* Diagnosis Tear of MCL (medial collateral ligament) of knee, right, initial encounter- Primary 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 [facility]* Diagnosis Cyst of right ovary- Primary Other and unspecified ovarian cyst Dysmenorrhea [facility]* Diagnosis Pain pelvic- Primary Unspecified symptom associated with female genital organs Preop testing Preoperative examination, unspecified Post-op pain Other acute postoperative pain [facility] Diagnosis Post-op pain- Primary Other acute postoperative pain [facility]* Diagnosis Tick bite of scalp, initial encounter- Primary Menstrual cramps Dysmenorrhea [facility]* Diagnosis Chest wall pain- Primary Painful respiration documented [facility] this [facility]* Diagnosis Influenza- Primary Influenza with other respiratory manifestations Cough, unspecified type [facility]* Diagnosis Fatigue, unspecified type- Primary Positive urine test Viral URI Acute upper respiratory infections of unspecified site [facility]* Diagnosis 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 Encounter for screening for risk of pre-term labor 19 weeks gestation of state, incidental [facility] Diagnosis POTS (postural orthostatic tachycardia syndrome)- Primary Tachycardia, unspecified Yola-Danlos syndrome type III Oyla-Danlos syndrome [facility]* Diagnosis Yola-Danlos syndrome type III Yola-Danlos syndrome [facility]* Diagnosis POTS (postural orthostatic tachycardia syndrome)- Primary Tachycardia, unspecified [facility]* Diagnosis Encounter for ultrasound to assess interval growth of fetus- Primary POTS (postural orthostatic tachycardia syndrome) Tachycardia, unspecified Yola-Danlos syndrome type III Yola-Danlos syndrome 27 weeks gestation of state, incidental [facility]* Diagnosis Obstipation- Primary Unspecified constipation [facility]* Diagnosis Onset Date Resolution Status Admit [...] 2024 12:57pm UTI in acute 2024 12:57pm [facility] Work Phone: Hospital Discharge instructions* Attachments The following attachments cannot be sent through Care Everywhere. * Constipation: Teen (Mauritian) [facility]* Attachments The following attachments cannot be sent through Care Everywhere. * EKG (Mauritian) * Palpitations (Mauritian) [facility]* Attachments The following attachments cannot be sent through Care Everywhere. * Contusion (Mauritian) [facility]* Attachments The following attachments cannot be sent through Care Everywhere. * Ovarian Cyst: Functional (Mauritian) * Dysmenorrhea (Mauritian) [facility]* Attachments The following attachments cannot be sent through Care Everywhere. * Pain Post-Surgery: Acute (Mauritian) documented in this [facility] Discharge instructions* Attachments The following attachments cannot be sent through Care Everywhere. * : Weeks 18 to 22 (Mauritian) documented [facility] Attachments The following attachments cannot be sent through Care Everywhere. * Influenza (Mauritian) documented [facility]* Attachments The following attachments cannot be sent through Care Everywhere. * Fatigue (Mauritian) * : Over the Counter Medicines During ([facility]) (Mauritian) documented in this [facility] Author Maribell Franklin [facility] Note Date/Time November 19, 2024 1:35pm [facility] [address] [place] [address], [address] [place] [address] OFFICE VISIT Date of Service: 11/19/24 MR#: [id number] Acct: [id number] Name: ETHAN HIGH Rep #: [id number] : 2005 Provider: Dr. Tamara Yang DO Age/Sex: 19/F Location: [facility] Status: Signed Intake Vital Signs 11/19/24 13:02 Height 5 ft 8.5 in Weight: 176 lb 5 oz BMI 26.4 BP 120/72 Intake Visit Reasons: 30 wk OB DENIS/SM Chief Complaint: 30 Week OB/DENIS Rig Builder Helper Required: No Is patient in pain?: No [...] 5-6 times per week duration: 30-45 minutes/day magdiel/evangelical: None seatbelt use: always do you feel [...] 146 29 -?-?-?-?-?-?-?-?-?-?-?-?- JV- new DENIS from [place]. was not happy with care there. Needs [...] Cosigner Signature: Date (if applicable) CC: ~ [facility] Work Phone: Progress note Author Lenora Vidal [facility] Note Date/Time December 07, 2024 8: 46am [facility] [address], [address] [place] [address] OFFICE VISIT Date of Service: 12/07/24 MR#: [id number] Acct: [id number] Name: ETHAN HIGH Rep #: [id number] : 2005 Provider: DASIA Vidal Age/Sex: 19/F Location: [facility] Status: Signed Intake Vital Signs 11/19/24 13:02 12/07/24 08:17 Height 5 ft 8.5 in 5 ft 8.5 in Weight: 183 lb 5 oz BMI 27.4 BP 122/81 H Intake Visit Reasons: 32 WK 6D OB Rig Builder Helper Required: No Is patient in pain?: No [...] 5-6 times per week duration: 30-45 minutes/day magdiel/evangelical: None seatbelt use: always do you feel [...] Flu vaccine: [] Tdap vaccine: received in [place] Rhogam: NA LARC form signed: yes Problem [...] 146 29 -?-?-?-?-?-?-?-?-?-?-?-?- JV- new DENIS from [place]. was not happy with care there. Needs [...] and Symptoms of Preeclampsia, Feeding Yes , [place] Education and Family Medical Leave or Disability [...] risk , unspecified, third trimester Comment: PRR(scanned [place]), HILTON 01/26/26, Sahil (2) Headache in : [...] 12/07/24 0848 <Electronically signed by Lenora delgadillo BUILDING PERFORMANCE CONSULTANT BUILDING PERFORMANCE CONSULTANT-C> Date _ Lenora Vidal BUILDING PERFORMANCE CONSULTANT BUILDING PERFORMANCE CONSULTANT-C Cosigner Signature: Date (if applicable) CC: ~ [facility] Work Phone: Reason for referral (narrative)* Consultation (Urgent) - New Request Specialty Diagnoses / Procedures Referred By Zonia machado Referred To Contact Cardiovascular Medicine Diagnoses Abnormal EKG Palpitations Qiana Torre PA-C [address] [place] [address] Sahil Hernández DO [address] [place] [phone] Referral ID Status Reason Start Date Expiration Date V isits Requested Visits Authorized [id number] New Request 01/03/2022 01/28/2023 1 1 * Radiology (Emergency) - Auth Not Needed Specialty Diagnoses / Procedures Referred By Zonia machado Referred To Contact Cardiovascular Medicine Procedures HOLTER MONITOR - 24 HOUR Qiana Torre PA-C [address] [place] [address] [facility] Clinical Advisor [address] [place] [phone] Referral ID Status Reason Start Date Expiration Date V isits Requested Visits Authorized [id number] Auth Not Needed 01/03/2022 01/28/2023 1 1 * Radiology (Emergency) - New Request Specialty Diagnoses / Procedures Referred By Contac t Referred To Contact Procedures ECG Qiana Torre PA-C [address] [facility] [address] [place] [id number] Referral ID Status Reason Start Date Expiration Date V isits Requested Visits Authorized [id number] New Request 01/03/2022 01/28/2023 1 1 [facility] Consultation (Routine) - Patient to Arrange Specialty Diagnoses / Procedures Referred By Contact Referred To Contact Sports Medicine and Rehabilitation Diagnoses Patellofemoral instability, right Kevin Luna, PAC [address] [place] [address] Referral ID Status Reason Start Date Expiration Date V isits Requested Visits Authorized [id number] Patient to Arrange 08/06/2022 08/31/2023 1 1 Scheduling Instructions [facility] at [address] Room: [address] [address] [phone] FAX [facility] [place] [address] [place] [address] FAX [facility] [address] [place], [place] [address] FAX [facility] [address] [facility] [address] [place] [address] FAX [facility] [address] [place] [facility] [place] [address] FAX Outpatient Rehabilitation Outpatient [facility] [place] [address] [facility], [address] [place] [address] FAX [facility] [address] [place] [address] [phone] FAX Continued on next page [facility] [place] [address], [place] [address] [phone] FAX [facility] [address] [place] [address] [phone] FAX Outpatient Rehabilitation Outpatient Care [address] [place] [address] [phone] FAX [facility] [address] [place] [address] FAX Outpatient Care [address] [address] FAX [facility] at [facility], Room [address] [place] [address] FAX * Radiology (Routine) - New Request Specialty Diagnoses / Procedures Referred By Zonia machado Referred To Contact Procedures US IMAGING Calin Alex MD [address] [place] [address] Referral ID Status Reason Start Date Expiration Date V isits Requested Visits Authorized [id number] New Request 08/06/2022 08/31/2023 1 1 [facility]No reason for referral information [facility] Work Phone: Reason for visit Narrative* Radiology (Routine) - Closed Specialty Diagnoses / Procedures Referred By Contac t Referred To Contact Diagnoses Yola-Danlos syndrome type III Procedures ECHOCARDIOGRAM DE ECHO TTHRC R-T 2D W/WOM-MODE COMPL SPEC&COLR D Loyd Prado MD [address] [place] [address] [address] [place] [address] Phone: tel: fax: Referral ID Status Reason Start Date Expiration Date Visits Re quested Visits Authorized [id number] Closed 09/01/2024 09/26/2025 1 1 [facility] Summary Purpose Family History No Family [...] FoundDocuments on File Type Date Recorded Patient Classroom Instructional Aide Expl anation Advance Directives and Livin g Will 09/22/2018 7:32 PM Documents on File Type Date Recorded Patient Classroom Instructional Aide Expl anation Advance Directives and Livin g Will 12/14/2018 10:35 PM Documents on File Type Date Recorded Patient Classroom Instructional Aide Expl anation Advance Directives and Livin g Will 03/23/2019 7:07 PM Documents on File Type Date Recorded Patient Classroom Instructional Aide Expl anation Advance Directives and Livin g Will 05/19/2019 11:10 PM Documents on File Type Date Recorded Patient Classroom Instructional Aide Expl anation Advance Directives and Livin g Will 05/19/2019 11:10 PM Documents on File Type Date Recorded Patient Classroom Instructional Aide Expl anation Advance Directives and Livin g Will 10/14/2019 8:18 AM Documents on File Type Date Recorded Patient Classroom Instructional Aide Expl anation Advance Directives and Livin g Will 11/02/2019 1:53 PM Documents on File Type Date Recorded Patient Classroom Instructional Aide Expl anation Advance Directives and Livin g Will 05/17/2020 11:27 PM Documents on File Type Date Recorded Patient Classroom Instructional Aide Expl anation Advance Directives and Livin g Will 11/02/2019 1:53 PM Documents on File Type Date Recorded Patient Classroom Instructional Aide Expl anation Advance Directives and Livin g Will 06/17/2020 11:27 PM Documents on File Type Date Recorded Patient Classroom Instructional Aide Expl anation Advance Directives and Livin g Will 11/19/2020 11:54 AM [email or web address] only Documents on File Type Date Recorded Patient Classroom Instructional Aide Expl anation Advance Directives and Livin g Will 11/19/2020 11:54 AM dpoa only Date Activated Date Inactivated Comments 07/19/2023 1:06 PM Date Activated Date Inactivated Comments 07/19/2023 1:06 PM Reason for Referral Status Reason Specialty Diagnoses / Procedures Referred By Contact Referred To Contact Schedule Outgoing - Transfer of Care Diagnoses Anxiety Milton Leos MD [address] [place], [place] [id number] System, Provider Not In Status Reason Specialty Diagnoses / Procedures Referred By Contact Referred To Contact New Request Procedures ECG Fabien Martini, DO [address] [facility] [place] [address] Status Reason Specialty Diagnoses / Procedures Referred By Contact Referred To Contact Pending Review Radiology Diagnoses Knee meniscus pain, right Tear of MCL (medial collateral ligament) of knee, right, initial encounter Procedures MR Knee Right Without Contrast Alexis Briggs MD [address] [place] [address] Status Reason Specialty Diagnoses / Procedures Referred By Contact Referred To Contact New Request Gastroenterology Diagnoses Nausea Milton Leos MD [address] [phone] Status Reason Specialty Diagnoses / Procedures Referred By Contact Referred To Contact New Request Genetics Diagnoses EDS (Yola-Danlos syndrome) Milton Leos MD [address] [address] Status Reason Specialty Diagnoses / Procedures Referre d By Contact Referred To Contact Closed Radiology Diagnoses Knee meniscus pain, right Tear of MCL (medial collateral ligament) of knee, right, initial encounter Procedures MR Knee Right Without Contrast Alexis Briggs MD [address] [facility] [address] [place] [address] Status Reason Specialty Diagnoses / Procedures Referred By Contact Referred To Contact New Request Diagnoses Instability of shoulder joint, 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, left shoulder Procedures MRI SHOULDER LEFT WITHOUT CONTRAST DE MRI, JOINT UPPER EXTREM Milton Leos MD [address] [facility] Status Reason Specialty Diagnoses / Procedures Referred By Contact Referred To Contact New Request Diagnoses Intractable chronic paroxysmal hemicrania Procedures MRI BRAIN WITHOUT CONTRAST DE MRI BRAIN Milton Leos MD [address] [facility] [place] [address] Status Reason Specialty Diagnoses / Procedures Referred By Contact Referred To Contact New Request Diagnoses Chronic fatigue Procedures CHEKO MULTIPLEX SCRN WITH REFLEX Milton Leos MD [address] [facility] [place] [address] Status Reason Specialty Diagnoses / Procedures Referred By Contact Referred To Contact Closed Magnetic Resonan ce Imaging Diagnoses Intractable chronic paroxysmal hemicrania Procedures MRI BRAIN WITHOUT CONTRAST DE MRI BRAIN Milton Leos MD [address] [place] [facility] [place] [address] [facility] [address] [place] [address] Status Reason Specialty Diagnoses / Procedures Referred By Contact Referred To Contact Authorized Orthopedic Surgery / Sports Medicine Diagnoses Instability of right patellofemoral joint Yumiko Hancock, ARNOLD [address] [facility] 2 [place] [address] Mary Miguel MD [address] [place] [address] Status Reason Specialty Diagnoses / Procedures Referred By Contact Referred To Contact Authorized Rehabilitation Diagnoses Instability of right patellofemoral joint Mary Miguel MD [address] [place] [address] Op Physical Therapy [address] [place] [address] Status Reason Specialty Diagnoses / Procedures Referred By Contact Referred To Contact Closed Magnetic Resonan ce Imaging Diagnoses Instability of shoulder joint, 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, left shoulder Procedures MRI SHOULDER LEFT WITHOUT CONTRAST DE MRI, JOINT UPPER EXTREM Milton Leos MD [address] [place] [address] [facility] [address] [place] [address] Status Reason Specialty Diagnoses / Procedures Referred By Contact Referred To Contact Pending Review Milton Leos MD [address] [place] [address] Specialty Diagnoses / Procedures Referred By Contac t Referred To Contact Radiology Diagnoses Tear of right acetabular labrum, initial encounter Procedures MR Hip Right Without Contrast Mary Miguel MD [address] [place] [address] Referral ID Status Reason Start Date Expiration Date V isits Requested Visits Authorized [id number] New Request 12/29/2020 12/29/2021 1 1 Referral ID Status Reason Start Date Expiration Date V isits Requested Visits Authorized [id number] New Request 07/27/2021 07/27/2022 1 1 Specialty Diagnoses / Procedures Referred By Contac t Referred To Contact Radiology Diagnoses Tear of left acetabular labrum, subsequent encounter Procedures MR Hip Left Without Contrast Mary Miguel MD [address] [place] [address] Referral ID Status Reason Start Date Expiration Date V isits Requested Visits Authorized [id number] New Request 07/27/2021 07/27/2022 1 1 Specialty Diagnoses / Procedures Referred By Contac t Referred To Contact Procedures ECG Nathaniel Reyes MD [address] [place] [address] Referral ID Status Reason Start Date Expiration Date V isits Requested Visits Authorized [id number] New Request 01/04/2022 01/29/2023 1 1 Specialty Diagnoses / Procedures Referred By Contac t Referred To Contact Radiology Diagnoses Abnormal finding on imaging Breast lump in upper outer quadrant Procedures US Breast Biopsy Left Dallin More MD [address] [facility] [address] [place] [address] Referral ID Status Reason Start Date Expiration Date V isits Requested Visits Authorized [id number] Authorized 04/17/2022 04/17/2023 1 1 Specialty Diagnoses / Procedures Referred By Contac t Referred To Contact Radiology Diagnoses Chronic constipation Bloating Nausea Procedures XR Upper GI With Esophagram Yina Ahn, [employer]PERVIS[employer] [address] [place] [address] [address] Referral ID Status Reason Start Date Expiration Date V isits Requested Visits Authorized [id number] Pending Review 04/23/2022 04/23/2023 1 1 Specialty Diagnoses / Procedures Referred By Contac t Referred To Contact Radiology Diagnoses Chronic constipation Bloating Nausea Procedures XR Small Bowel Follow Through Yina Ahn, [employer] [address] [place] [address] [address] Referral ID Status Reason Start Date Expiration Date V isits Requested Visits Authorized [id number] Pending Review 04/23/2022 04/23/2023 1 1 Specialty Diagnoses / Procedures Referred By Contac t Referred To Contact Diagnoses Right knee pain, unspecified chronicity Procedures MRI KNEE RIGHT WITHOUT CONTRAST DE MRI LOWER EXTREM JT, W/O CONTRAST Sulema Lazar MD [address] [facility] [address] [place] [address] Referral ID Status Reason Start Date Expiration Date V isits Requested Visits Authorized [id number] New Request 06/14/2022 07/09/2023 1 1 Referral ID Status Reason Start Date Expiration Date Visits Re quested Visits Authorized [id number] Closed 06/14/2022 07/09/2023 1 1 Specialty Diagnoses / Procedures Referred By Contac t Referred To Contact Diagnoses S/P knee surgery Procedures XR KNEE RIGHT 2 VIEWS Kevin Luna, PAC [address] [place] [address] Referral ID Status Reason Start Date Expiration Date V isits Requested Visits Authorized [id number] New Request 08/22/2022 09/16/2023 1 1 Specialty Diagnoses / Procedures Referred By Contac t Referred To Contact Diagnoses 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breast, left Procedures US BREAST LIMITED UNILATERAL LEFT Parish, Kaylynn Wood, CHALK TESTER-[employer]PER[employer] [address] [place] [address] Referral ID Status Reason Start Date Expiration Date V isits Requested Visits Authorized [id number] New Request 09/13/2022 10/08/2023 1 1 Specialty Diagnoses / Procedures Referred By Contac t Referred To Contact Procedures US PELVIC WITH TRANSVAGINAL WITH DOPPLER US PELVIC W TRANSVAGINAL Qiana Torre PA-C [address] [place] [address] Referral ID Status Reason Start Date Expiration Date V isits Requested Visits Authorized [id number] New Request 04/04/2023 04/28/2024 1 1 Specialty Diagnoses / Procedures Referred By Contac t Referred To Contact Procedures C REACTIVE PROTEIN Norm Smith PA-C [address] [place] [address] Referral ID Status Reason Start Date Expiration Date V isits Requested Visits Authorized [id number] New Request 07/23/2023 08/16/2024 1 1 Specialty Diagnoses / Procedures Referred By Contac t Referred To Contact Procedures ECG Meme Prasad MD [address] [phone] Referral ID Status Reason Start Date Expiration Date V isits Requested Visits Authorized [id number] New Request 11/28/2023 12/22/2024 1 1 Assessments [...] Nausea alone Diagnosis EDS (Yola-Danlos syndrome)- Primary Yola-Danlos syndrome Diagnosis Non-intractable vomiting with nausea, unspecified [...] Everywhere. * Back and Neck Pain, General (Mauritian) in this encounter* Attachments The following attachments cannot be sent through Care Everywhere. * Dehydration: Pediatric (Mauritian) * Nausea and Vomiting: Teen (Mauritian) documented in this encounter* Attachments The following attachments cannot be sent through Care Everywhere. * Nausea and Vomiting: Pediatric (Mauritian) documented in this encounter* Attachments The following attachments cannot be sent through Care Everywhere. * Canker Sores: Teen (Mauritian) documented in this encounter* Attachments The following attachments cannot be sent through Care Everywhere. * Shoulder Pain (Mauritian) documented in this encounter* Attachments The following attachments cannot be sent through Care Everywhere. * Abdominal Pain (Mauritian) * GI Bleed: Pediatric (Mauritian) documented in this encounter* Attachments The following attachments cannot be sent through Care Everywhere. * Fatigue: Pediatric (Mauritian) * Headache: Pediatric (Mauritian) documented in this encounter* Instructions* John Ordaz MD - 05/20/2019 increase oral fluid intake; Imodium 2 mg 6 hours for abdominal pain ; BRAT diet; return to ER if gets worse * Attachments The following attachments cannot be sent through Care Everywhere. * Gastroenteritis: Pediatric (Mauritian) documented in this encounter* Attachments The following attachments cannot be sent through Care Everywhere. * Chest Pain: Pediatric (Mauritian) documented in this encounter Instructions * Patient [...] document contains general parenting information based on [place] [employer] recommendations and is not meant to replace the expert advice of your oil field operator. in this encounter* Patient Instructions* Milton Leos MD - 05/29/2019 8:20 AM EDT No show documented in this encounter* Patient Instructions* Kimo Rojo PT - 11/02/2019 2:00 PM EDT Patient Education provided: POC based on condition specific prognosis. HEP and attendance compliance and importance for improvement of symptoms. documented in this encounter* Patient Instructions* Milton Leos MD - 12/17/2019 9:20 AM EDT Ethan [...] ammunition are both kept safely locked away. [employer] safety courses are a good way to [...] document contains general parenting information based on [place] [employer] recommendations and is not meant to replace the expert advice of your oil field operator. documented in this encounter History of Present [...] on: 06/09/2018 12:02 PM by: ALEXIS BRIGGS [[id number]] Imaging Studies: No results found. Assessment: SNOMED [...] as well. pt is seeing ortho at [facility] next month. mom is requesting MRI Pt has an appointment with [facility] Dec 08, 2018. 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 Dr. Viviana Owens is her Ortho Doctor. She was seen in [place] ED 11/07/18 and was given pain medication. Hx of subluxed shoulder in 8th grade. AT at [employer] noted that there's nothing there to hold [...] file Gets together: Not on file Attends jew service: Not on file Active member of [...] SURGICAL 07/04/2018 gastric emptying with normal results [facility] APPENDECTOMY LAPAROSCOPIC 12/04/2017 [facility] TONSILLECTOMY ADENOIDECTOMY 01/2010 Gracie isaac. Family [...] support. She has an Ortho appointment at [facility] in early Dec. * Flori Lamar LPN [...] history is significant for migraine headaches (diagnosed [facility] approx 10 years ago) and migraines in [...] file Gets together: Not on file Attends jew service: Not on file Active member of [...] SURGICAL 07/04/2018 gastric emptying with normal results [facility] APPENDECTOMY LAPAROSCOPIC 12/04/2017 [facility] TONSILLECTOMY ADENOIDECTOMY 01/2010 Gracie isaac. Family [...] drift. Coordination: Romberg sign negative. Coordination normal. Ehogup-Zgzo-Iqaifz Test and Heel to Luong Test normal. [...] physical therapy and work with a school link trainer teacher without any improvements. She is getting frustrated [...] file Gets together: Not on file Attends jew service: Not on file Active member of [...] out and do the exercise program her call or contact centre coach has given her. What is complex about [...] Medications: She currently takes an occasional p.r.n. cixg-dif-aidqemg pain medicine. Surgeries: Tonsils and adenoids, appendectomy, [...] on: 10/28/2019 4:27 PM by: MARY MIGUEL [[id number]] documented in this encounter* Kimo Rojo PT - 11/02/2019 2:00 PM EDT [facility] Evaluation Today's Date 11/02/2019 Patient Name: Ethan Hernandez Date of : 2005 Case Name: Right Knee PFPS Functional Diagnosis: 1. Instability of right patellofemoral joint Clinical Information: Signs and Symptoms of Abuse/Neglect: No Actions Taken: No Suicide Risk: Does the patient feel like ending their life today?No Actions Taken: No CPT Code 01155 Low 76943 Moderate 46895 High History 0 1-2 3+ Comorbidities: SOB, [...] result in the following functional limitations: ADLs/IADLs, cashier checker, regular PA/exercise, sporting activities, functional mobility, walking, [...] and steps with no railing (2 [address]) Scientologist, social, or cultural considerations to be made [...] 1; 2:00 - 3:00 PM Therapeutic Exercise (21758) Intervention Patient Education provided: POC based on [...] knee swelling. Kimo Rojo PT STATE LICENSE, [id number] documented in this encounter* 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, FRIEND OF THE COURT - 11/05/2019 3:30 PM EDT [facility] DAILY TREATMENT NOTE Today's [...] 2; 3:30 - 4:05 PM Therapeutic Exercise (73911) Intervention Patient Education provided: POC based on [...] per protocol 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 PTA STATE LICENSE, [id number] documented in this encounter* 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 PTA - 11/10/2019 1:15 PM EDT [facility] DAILY TREATMENT NOTE Today's [...] 3; 1:50 - 2-45 PM Therapeutic Exercise (02876) Intervention Patient Education provided: POC based on [...] 45 degrees 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 PTA STATE LICENSE, [id number] documented in this encounter* 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 PTA - 11/12/2019 3:30 PM EDT [facility] DAILY TREATMENT NOTE Today's [...] 4; 3:30 - 4:30 PM Therapeutic Exercise (71810) Intervention Patient Education provided: POC based on [...] per protocol 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 PTA STATE LICENSE, [id number] documented in this encounter* 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 PTA - 11/16/2019 3:30 PM EDT [facility] DAILY TREATMENT NOTE Today's [...] 5; 3:30 - 4:30 PM Therapeutic Exercise (11394) Intervention Patient Education provided: POC based on [...] per protocol 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 PTA STATE LICENSE, [id number] documented in this encounter* 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 PTA - 11/19/2019 3:30 PM EDT [facility] DAILY TREATMENT NOTE Today's [...] 6; 3:30 - 4:35 PM Therapeutic Exercise (00532) Intervention Patient Education provided: POC based on [...] degrees flexion 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 PTA STATE LICENSE, [id number] documented in this encounter* 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 PTA - 11/26/2019 1:15 PM EDT [facility] DAILY TREATMENT NOTE Today's [...] 9: 1:15 - 2:15 PM Therapeutic Exercise (25812) Intervention Patient Education provided: POC based on [...] per protocol. 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 PTA STATE LICENSE, [id number] documented in this encounter* Mary Miguel MD - 11/26/2019 5:47 PM EDT Dictation on: 11/26/2019 5:48 PM by: MARY MIGUEL [[id number]] documented in this encounter* Kimo Rojo PT - 11/27/2019 3:30 PM EDT [facility] DAILY TREATMENT NOTE Today's [...] 10: 3:30 - 4:15 PM Therapeutic Exercise (74377) Intervention Patient Education provided: POC based on [...] this session. Kimo Rojo PT STATE LICENSE, [id number] documented in this encounter* 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, JORDI - 11/30/2019 3:30 PM EDT [facility] DAILY TREATMENT NOTE Today's [...] 11: 3:25 - 4:20 PM Therapeutic Exercise (69760) Intervention -- 10 min Parameters Knee Flexion [...] on ROM 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 PTA STATE LICENSE, [id number] documented in this encounter* 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 PTA - 12/03/2019 3:30 PM EDT [facility] DAILY TREATMENT NOTE Today's [...] 12: 3:25 - 4:15 PM Therapeutic Exercise (17835) Intervention -- 10 min Parameters Knee Flexion [...] and flexability 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 PTA STATE LICENSE, [id number] documented in this encounter* 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 PTA - 12/07/2019 3:30 PM EDT [facility] DAILY TREATMENT NOTE Today's [...] 13: 3:30 - 4:15 PM Therapeutic Exercise (04966) Intervention PROM/Osscillations - x10 min 10 min [...] on ROM 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 PTA STATE LICENSE, [id number] documented in this encounter* 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 PTA - 12/10/2019 4:15 PM EDT [facility] DAILY TREATMENT NOTE Today's [...] 14: 4:15 - 5:00 PM Therapeutic Exercise (98108) Intervention Nustep - next visit 10 min [...] quad strengthening 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 PTA STATE LICENSE, [id number] documented in this encounter* Darvin Dmaon PTA - 12/11/2019 3:30 PM EDT [facility] DAILY TREATMENT NOTE Today's [...] 15: 3:26 - 4:15 PM Therapeutic Exercise (42996) Intervention Nustep - next visit 10 min [...] per protocol 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 PTA STATE LICENSE, [id number] documented in this encounter* 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 PTA - 12/14/2019 3:30 PM EDT [facility] DAILY TREATMENT NOTE Today's [...] 16: 3:30 - 4:25 PM Therapeutic Exercise (90044) Intervention Step Stretches - 20 sec x5 [...] per protocol 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 PTA STATE LICENSE, [id number] documented in this encounter* Siena Berry LPN [...] - 12/17/2019 9:20 AM EDT Associated Order(s): DE VISUAL SCREENING TEST, BILAT Pre-Procedure Diagnose(s): Encounter for routine child health examination without abnormal findings Post-Procedure Diagnose(s): Encounter for routine child health examination without abnormal findings Adolescent Well Child Adults here with child: Mom Hilda Patient aware of confidentiality with physician (excluding self harm): yes Current Issues/Concerns: no, she needs a work slip for her job at [employer]. Dr. Joy s/p right knee surgery 10/14/2019 [facility] PT [facility], Card[facility] She will start counseling tomorrow through [facility] Review of Nutrition: not eating well, she had diarrhea 2 weeks ago. Dietary Supplements: no Any sleeping difficulties: she has problems falling asleep. Any Elimination concerns: occasional constipation Brushing teeth: yes Dental visits: 3rd [facility] [place], Dr. Landrum [place], Health Specialist Vision screening/concerns:no glasses, no vision concerns Hearing screening/concerns: no concerns If female, LMP 12/03/2019, menstrual history heavy periods, she has IUD Psychosocial Review: Home - who lives with the patient: mom, brother Any concerns about home life: no Education - what school and grade: [employer] Grades/Academic achievement: good, she is [...] risks of the vaccines recommended per the [place] [employer] and Center for Disease Control. Based on this discussion, the following immunizations were ordered: See orders for today's visit. DE VISUAL SCREENING TEST, BILAT Performed by: Milton Leos MD Authorized by: Milton Leos MD [place] Protocol Immediately prior to procedure a time out was called to verify the correct patient, procedure, equipment, direct support staff member and site/side marked as required. Additional Notes Vision normal, see screenings tab documented in this encounter* 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, FRIEND OF THE COURT - 12/31/2019 2:45 PM EDT [facility] DAILY TREATMENT NOTE Today's [...] 22: 2:50 - 3:35 PM Therapeutic Exercise (76749) Intervention Nustep - x5 min L5 Parameters [...] ROM progression 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 PTA STATE LICENSE, [id number] documented in this encounter* 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 PTA - 01/01/2020 2:45 PM EDT [facility] DAILY TREATMENT NOTE Today's [...] 23: 2:45 - 3:30 PM Therapeutic Exercise (89163) Intervention Nustep - x5 min L5 Parameters [...] as tolerated 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 PTA STATE LICENSE, [id number] documented in this encounter* Natali Hope PTA - 01/05/2020 2:45 PM EST [facility] DAILY TREATMENT NOTE Today's [...] 24: 2:45 - 3:30 PM Therapeutic Exercise (82872) Intervention Nustep - x5 min L5 Parameters [...] and strength Natali Hope PTA STATE LICENSE, [id number] documented in this encounter* Natali Hope PTA - 01/12/2020 2:45 PM EST [facility] DAILY TREATMENT NOTE Today's [...] Lunges per Dr. Miguel 12/24/19) Notes Visit 26: 2:45 - 3:30 PM Therapeutic Exercise (74789) Intervention Bike - x5 min L5 seat [...] and stability. Natali Hope PTA STATE LICENSE, [id number] documented in this encounter* Lam Jorge, PT - 01/22/2020 2:45 PM EST [facility] DAILY TREATMENT NOTE Today's [...] 12/24/19) Notes Visit 29: 2:45-3:25PM Therapeutic Exercise (31235) Intervention Bike - x5 min L5 seat [...] as able. Lam Jorge PT STATE LICENSE, [id number] documented in this encounter* Natali Hope, FRIEND OF THE COURT - 02/02/2020 3:30 PM EST [facility] DAILY TREATMENT NOTE Today's [...] 12/24/19) Notes Visit 30: 3:30-4:10PM Therapeutic Exercise (62101) Intervention Bike - x5 min L5 seat [...] insurance company. Natali Hope PTA STATE LICENSE, [id number] documented in this encounter* Darling Alfonso LPN - 02/03/2020 8:30 AM EST Patient presents today with complaints of urinary pain, frequency, and flank pain for 2 days. Urinalysis abnormal. Urine culture ordered. documented in this encounter* Karuna Ibrahim PT - 02/23/2020 11:00 AM EST [facility] DAILY TREATMENT NOTE Today's Date 02/23/2020 Patient Name: Ethan Hernandez Date of : [...] 12/24/19) Notes Visit 31: 11:00-11:45AM Therapeutic Exercise (24464) Intervention Bike - x5 min L5 seat [...] R MARIIA. Karuna Ibrahim, PT STATE LICENSE, [id number] documented in this encounter* Karuna Ibrahim, PT - 02/25/2020 10:15 AM EST [facility] DAILY TREATMENT NOTE Today's [...] 12/24/19) Notes Visit 32: 10:15-10:53AM Therapeutic Exercise (03600) Intervention Bike - x5 min L5 seat [...] with POC. Karuna Ibrahim, BILL STATE LICENSE, [id number] documented in this encounter* Lam Jorge, PT - 03/08/2020 11:00 AM EST [facility] OUTPATIENT REHABILITATION DAILY TREATMENT NOTE Today's [...] 33: 11:00 - 11:40 am Therapeutic Exercise (76234) Intervention Bike - x5 min L5 seat [...] as able. Lam Jorge PT STATE LICENSE, [id number] documented in this encounter* Karuna Ibrahim, PT - 03/11/2020 1:15 PM EST [facility] OUTPATIENT REHABILITATION DAILY TREATMENT NOTE Today's [...] 34: 1:20 - 2:00 am Therapeutic Exercise (66951) Intervention Bike - x5 min L5 seat [...] with strengthening. Karuna Ibrahim PT STATE LICENSE, [id number] documented in this encounter* Natali Hope, FRIEND OF THE COURT - 03/15/2020 1:15 PM EST [facility] OUTPATIENT REHABILITATION DAILY TREATMENT NOTE Today's [...] 35: 1:17 - 1:55 pm Therapeutic Exercise (02558) Intervention Bike - x5 min L5 seat [...] and stabilty. Natali Hope PTA STATE LICENSE, [id number] documented in this encounter* Annmarie Norwood - [...] Exam documented in this encounter* Natali Hope, FRIEND OF THE COURT - 03/25/2020 1:15 PM EST [facility] OUTPATIENT REHABILITATION DAILY TREATMENT NOTE Today's [...] 38: 1:15 - 1:55 pm Therapeutic Exercise (85574) Intervention Bike - x5 min L5 seat [...] and stability. Natali Hope PTA STATE LICENSE, [id number] documented in this encounter* Lam Jorge, PT - 04/01/2020 1:15 PM EST [facility] OUTPATIENT REHABILITATION DAILY TREATMENT NOTE Today's [...] 39: 1:15 - 2:05 pm Therapeutic Exercise (44978) Intervention Bike - x5 min L5 seat [...] as able Lam Jorge, BILL STATE LICENSE, [id number] documented in this encounter* Lam Jorge, PT - 04/01/2020 1:15 PM EST [facility] OUTPATIENT REHABILITATION DAILY TREATMENT NOTE Today's [...] 39: 1:15 - 2:05 pm Therapeutic Exercise (36977) Intervention Bike - x5 min L5 seat [...] as able Lam Jorge, PT STATE LICENSE, [id number] documented in this encounter* Mary Miguel MD - 04/02/2020 2:15 PM EST Dictation on: 04/02/2020 2:16 PM by: MARY MIGUEL [[id number]] documented in this encounter* Stefanie Jennifer - 04/15/2020 11:00 AM EST [facility] OUTPATIENT REHABILITATION DAILY TREATMENT NOTE Today's [...] 41: 10:57 - 11:30 pm Therapeutic Exercise (05681) Intervention Bike - x5 min L5 seat [...] Jennifer VALLE [place] licensure found in state[place] Treatment directed and supervised by supervising therapist: Natali Hope PTA. documented in this encounter* Karuna Ibrahim, PT - 04/22/2020 12:30 PM EST [facility] OUTPATIENT REHABILITATION DAILY TREATMENT NOTE Today's [...] 42: 12:35 - 1:15 pm Therapeutic Exercise (10233) Intervention Bike - x5 min L5 seat [...] on strengthening. Karuna Ibrahim, BILL STATE LICENSE, [id number] documented in this encounter* Lam Jorge, PT - 04/29/2020 1:15 PM EST [facility] OUTPATIENT REHABILITATION DAILY TREATMENT NOTE Today's [...] I at this time and working with sales trainer at school on sport specific activity. Objective Treatments: Physical Therapy Exercise Log - 04/29/20 1333 OTHER Precautions/Contraindications 11/02/19 Notes Visit 44: 1:15 - 2:00 pm Therapeutic Exercise (49223) Intervention Bike - x5 min L5 seat [...] time. Pt may work some with her sales trainer at school more sport specific activity as able. Pt is I with her current HEP and ready for DC at this time. Skilled Intervention demonstrated by modifications of treatment per exercise log including increased load and increased rate and safety interventions per exercise log. Progress towards goals as expected. Plan for Next Visit: Discharge today. Lam Jorge PT STATE LICENSE, [id number] documented in this encounter* Karuna Ibrahim, PT - 03/18/2020 1:15 PM EST [facility] OUTPATIENT REHABILITATION DAILY TREATMENT NOTE Today's [...] 36: 1:12 - 1:51 pm Therapeutic Exercise (31305) Intervention Bike - x5 min L5 seat [...] and ROM. Karuna Ibrahim PT STATE LICENSE, [id number] documented in this encounter* DamonDarvin, FRIEND OF THE COURT - 01/08/2020 2:45 PM EST [facility] OUTPATIENT REHABILITATION DAILY TREATMENT NOTE Today's [...] 25: 2:45 - 3:30 PM Therapeutic Exercise (80113) Intervention Bike - x5 min L5 seat [...] and stability 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 PTA STATE LICENSE, [id number] documented in this encounter* Jennifer Watts - 03/22/2020 1:15 PM EST [facility] OUTPATIENT REHABILITATION DAILY TREATMENT NOTE Today's [...] 37: 1:03 - 1:39 pm Therapeutic Exercise (28837) Intervention Bike - x5 min L5 seat [...] Jennifer VALLE [place] found [place] Treatment directed and supervised by supervising therapist: Natali Hope PTA. documented in this encounter* Phil Stern PTA - 01/15/2020 2:45 PM EST [facility] OUTPATIENT REHABILITATION DAILY TREATMENT NOTE Today's [...] per Dr. Miguel 12/24/19) Notes Visit 27: [phone] Therapeutic Exercise (24518) Intervention Bike - x5 min L5 seat [...] as tolerated Phil Stern PTA STATE LICENSE, [id number] documented in this encounter* Natali Hope PTA - 01/19/2020 2:45 PM EST [facility] OUTPATIENT REHABILITATION DAILY TREATMENT NOTE Today's [...] 12/24/19) Notes Visit 28: 2:45-3:25PM Therapeutic Exercise (45622) Intervention Bike - x5 min L5 seat [...] and stability. Natali Hope PTA STATE LICENSE, [id number] documented in this encounter* 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, FRIEND OF THE COURT - 11/20/2019 3:30 PM EDT [facility] OUTPATIENT REHABILITATION DAILY TREATMENT NOTE Today's [...] 7; 3:25 - 4:25 PM Therapeutic Exercise (56880) Intervention Patient Education provided: POC based on [...] per protocol 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 PTA STATE LICENSE, [id number] documented in this encounter* Nury Agudelo MA - 06/18/2018 1:22 PM EDT MRI OF RIGHT KNEE HAS BEEN APPROVED AUTHORIZATION # [id number] FROM June 09, 2018 TO JULY 09, 2018 documented in this encounter Chief Complaint and Reason for Visit Chief Complaint Admit Date 30 wk OB DENIS/SM November 19, 2024 12:57pm Reason for Visit Admit Date Bipolar 2 disorder November 19, 2024 12:57pm [facility]los syndrome [facility] Fibromyalgia November 19, 2024 [...] section and content) DATE CREATED AUTHOR 08/27/2017 [facility] DATE CREATED AUTHOR AUTHOR'S ORGANIZ ATION 12/09/2018 [facility] DATE CREATED AUTHOR AUTHOR'S ORGANIZ ATION 12/09/2018 [facility] DATE CREATED AUTHOR AUTHOR'S ORGANIZ ATION 12/09/2018 [facility] DATE CREATED AUTHOR AUTHOR'S ORGANIZ ATION 12/09/2018 [facility] DATE CREATED AUTHOR AUTHOR'S ORGANIZ ATION 10/11/2019 [facility] DATE CREATED AUTHOR AUTHOR'S ORGANIZ ATION 08/12/2022 [facility] DATE CREATED AUTHOR AUTHOR'S ORGANIZ ATION 01/20/2023 [facility] DATE CREATED AUTHOR AUTHOR'S ORGANIZ ATION 04/07/2023 [facility] DATE CREATED AUTHOR AUTHOR'S ORGANIZ ATION 05/22/2024 [facility] DATE CREATED AUTHOR AUTHOR'S ORGANIZ ATION 07/10/2024 [facility] DATE CREATED AUTHOR AUTHOR'S ORGANIZ ATION 10/28/2024 [facility] DATE CREATED AUTHOR AUTHOR'S ORGANIZ ATION 11/04/2024 [facility] DATE CREATED AUTHOR AUTHOR'S ORGANIZ ATION 11/06/2024 [facility] DATE CREATED AUTHOR AUTHOR'S ORGANIZ ATION 11/25/2024 [facility] DATE CREATED AUTHOR AUTHOR'S ORGANIZ ATION 12/09/2024 [facility] DATE CREATED AUTHOR AUTHOR'S ORGANIZ ATION 12/12/2024 [facility] Reason for Visit (unrecogniz ed section and content) Reason Comments Physical Therapy Specialty Diagnoses / Procedures Referred By Contac t Referred To Contact Rehabilitation Diagnoses S/P reconstruction of ligament of knee Sulema Lazar MD [address] [place] [address] Op Physical Therapy [address] [place] [address] Referral ID Status Reason Start Date Expiration Date V isits Requested Visits Authorized [id number] Authorized 08/21/2022 08/21/2023 30 30 Reason Comments [...] Right Without Contrast Alexis Briggs MD [address] [facility] 2 [place] [address] Reason Comments Order Request Reason Comments Sore Throat Reason Comments Other Reason Comments Shoulder Pain LEFT Reason Comments Shoulder Pain left, pt has EDS and states that the shoulder is grinding, and it is coming out of socket and is causing pain to her neck and back as well. pt is seeing ortho at [facility] next month. mom is requesting MRI Reason Comments Results Reason Comments Rectal Bleeding Reason Comments Headache Fatigue Sore Throat Reason Comments Headache s/s x 1 month Status Reason Specialty Diagnoses / Procedures Referred By Contact Referred To Contact New Request Diagnoses Chronic fatigue Procedures CHEKO MULTIPLEX SCRN WITH REFLEX Milton Leos MD [address] [place] [address] Status Reason Specialty Diagnoses / Procedures Referred By Contact Referred To Contact Closed Magnetic Resonan ce Imaging Diagnoses Intractable chronic paroxysmal hemicrania Procedures MRI BRAIN WITHOUT CONTRAST DE MRI BRAIN Milton Leos MD [address] [place] [address] [facility] [address] [place] [address] Reason Comments Abdominal Pain Emesis Reason Comments Urinary Pain Reason Comments Pain Imaging Results Reason Comments Pain Status Reason Specialty Diagnoses / Procedures Re ferred By Contact Referred To Contact Closed Orthopedic Surge ry / Sports Medicine Diagnoses Instability of right patellofemoral joint Yumiko Hancock CNP [address] [address] Mary Miguel MD [address] [place] [address] Status Reason Specialty Diagnoses / Procedures Referred By Contact Referred To Contact Authorized Rehabilitation Diagnoses Instability of right patellofemoral joint Mary Miguel MD [address] [place] [address] Op Physical Therapy [address] [place] [address] Reason Comments Follow-up Reason Comments Well Child Status Reason Specialty Diagnoses / Procedures Re ferred By Contact Referred To Contact Closed Rehabilitation Diagnoses Instability of right patellofemoral joint Mary Miguel MD [address] [place] [address] [facility] Physical Therapy [address] [place] [address] Reason Comments Labs Only NV UA Reason Comments Urinary Pain NV UA Status Reason Specialty Diagnoses / Procedures Re ferred By Contact Referred To Contact Diagnoses 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] Procedures DE OSTEOTOMY PROX TIB,<EPIPHY CLOSUR DE LATERAL RETINACULAR RELEASE OPEN aMry Miguel MD [address] [place] [address] Reason Comments Chest Pain Status Reason Specialty Diagnoses / Procedures Referred By Contact Referred To Contact Authorized Rehabilitation Diagnoses Instability of right patellofemoral joint Mary Miguel MD [address] [place] [address] [facility] Physical Therapy [address] [place] [phone] Status Reason Specialty Diagnoses / Procedures Referred By Contact Referred To Contact Closed Magnetic Resonan ce Imaging Diagnoses Instability of shoulder joint, 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, left shoulder Procedures MRI SHOULDER LEFT WITHOUT CONTRAST DE MRI, JOINT UPPER EXTREM Milton Leos MD [address] [place] [address] [facility] [address] [place] [address] Reason Comments Abdominal Pain no regular BM [...] kidney stones Hematuria, unspecified type Meme Gimenez, SUPERVISOR [employer] [address] [place] [address] Aaron Lund MD [facility] [place] [address] Referral ID Status Reason Start Date Expiration Date V isits Requested Visits Authorized [id number] Closed Specialty Services Required/Susie ent's Best Interest 11/14/2021 11/14/2022 1 1 Reason Comments Rapid Heart Rate Sweats Fatigue Reason Comments Shaking 2 weeks, worse x 24 hrs Fatigue Specialty Diagnoses / Procedures Referred By Contac t Referred To Contact Cardiovascular Medicine Procedures HOLTER MONITOR - 24 HOUR Qiana Torre PA-C [address] [place] [address] [facility] Clinical Advisor [address] [place] [address] Referral ID Status Reason Start Date Expiration Date Visits Re quested Visits Authorized [id number] Closed 01/03/2022 01/28/2023 1 1 Reason Comments Consult Abnormal breast US Specialty Diagnoses / Procedures Referred By Contac t Referred To Contact General Surgery Diagnoses Abnormal finding on imaging Breast lump in upper outer quadrant Family history of breast cancer Meme Gimenez, SUPERVISOR [employer] [address] [place] [address] Dallin More MD [address] [place] [address] Referral ID Status Reason Start Date Expiration Date V isits Requested Visits Authorized [id number] Closed Specialty Services Required/Susie ent's Best Interest 04/05/2022 04/05/2023 1 1 Specialty Diagnoses / Procedures Referred By Contac t Referred To Contact Gastroenterology Diagnoses Chronic constipation Meme Gimenez, SUPERVISOR [employer] [address] [place] [address] Anabelle, Yina Bhavya, SUPERVISOR [employer] [address] [place] [address] Referral ID Status Reason Start Date Expiration Date Visits Re quested Visits Authorized [id number] Closed 03/26/2022 03/26/2023 1 1 Reason Comments Follow-up Left breast biopsy r esults Reason Comments Knee Injury R knee gave out whil e walking up stairs yesterday, patient felt pop and has screws in knee from previous surgery, states she has pain and difficulty ambulating since. 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 [...] KNEE RIGHT 4+ VIEWS Sulema Lazar MD [address] [place] [address] Referral ID Status Reason Start Date Expiration Date V isits Requested Visits Authorized [id number] New Request 06/14/2022 07/09/2023 1 1 Specialty Diagnoses / Procedures Referred By Contac t Referred To Contact Diagnoses Right knee pain, unspecified chronicity Procedures MRI KNEE RIGHT WITHOUT CONTRAST DE MRI LOWER EXTREM JT, W/O CONTRAST Sulema Lazar MD [address] [place] [address] Referral ID Status Reason Start Date Expiration Date Visits Re quested Visits Authorized [id number] Closed 06/14/2022 07/09/2023 1 1 Reason Comments [...] 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] Procedures DE LIGMT REVISION,KNEE,EXTRA-ARTIC RECONSTRUCTION KNEE LIGAMENTOUS INTRA-ARTICULAR/EXTRA-ARTIC Sulema Charles MD [address] [place] [address] [facility] [address] [place] [address] Referral ID Status Reason Start Date Expiration Date Visits Re quested Visits Authorized [id number] 1 1 Reason Comments Post Op Visit [...] KNEE RIGHT 2 VIEWS Kevin Luna, PAC [address] [place] [address] Referral ID Status Reason Start Date Expiration Date V isits Requested Visits Authorized [id number] New Request 08/22/2022 09/16/2023 1 1 Reason Comments New Patient Left breast Fibroade noma family hx breast cancer. Does report increase in size and pain. Specialty Diagnoses / Procedures Referred By Contac t Referred To Contact Surgical Oncology Diagnoses New Patient- surg eval for Fibroadenoma w/ PAS- Pt would like removed, [facility] in [place]- 07/05- alin missed appt 06/22/22 Procedures NEW PATIENT Meme Gimenez, CHALK TESTER-SUPERVISOR [employer] [address] [facility] [address] [place] [address] Sahil Brunson III, MD [address] [facility] 3rd Floor, [address] [place] [address] Referral ID Status Reason Start Date Expiration Date V isits Requested Visits Authorized [id number] New Request 09/13/2022 10/08/2023 1 1 Specialty Diagnoses / Procedures Referred By Contac t Referred To Contact Diagnoses 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breast, left Procedures US BREAST LIMITED UNILATERAL LEFT Kaylynn Parish, CHALK TESTER-SUPERVISOR [employer] [address] [facility] [place] [address] Referral ID Status Reason Start Date Expiration Date V isits Requested Visits Authorized [id number] New Request 09/13/2022 10/08/2023 1 1 Specialty Diagnoses / Procedures Referred By Contac t Referred To Contact Rehabilitation Diagnoses S/P reconstruction of ligament of knee Sulema Lazar MD [address] [place] [address] Sh Op Physical Therapy [address] [place] [address] Reason Comments Post Op Visit 7w s/p [...] female [R10.2] Abnormal uterine bleeding [N93.9] Procedures DE LAP,FULGURATE/EXCISE LESIONS EXCISION/FULGURATION LESION OVARY/PELVIC VISERA/PERITONEAL SURFACE LAPAROSCOPIC Jana Sanchez MD [address] [place] [address] Referral ID Status Reason Start Date Expiration Date Visits Re quested Visits Authorized [id number] 06/13/2023 1 1 Reason Comments Abdominal Pain [...] OB DETAILED ANATOMY Huy Flores MD [address] [facility] 4th [place] [address] Phone: tel: fax: Referral ID Status Reason Start Date Expiration Date V isits Requested Visits Authorized [id number] New Request 07/09/2024 08/03/2025 1 1 Reason Comments Ultrasound Maternal Medicine Consultation (Co nsult) Specialty Diagnoses / Procedures Referred By Contac t Referred To Contact FACILITY SERVICE ASSOCIATE Diagnoses Yola-Danlos syndrome Jana Sanchez MD [address] [place] [address] Phone: tel: fax: [facility] [address] [place] [address] Referral ID Status Reason Start Date Expiration Date V isits Requested Visits Authorized [id number] New Request 07/07/2024 08/01/2025 1 1 Reason Comments Dizziness Pt reports increased fatigue and dizziness since last week. Reports feeling like she could fall asleep all the time. Also has left sided back pain and headache. Specialty Diagnoses / Procedures Referred By Contac t Referred To Contact Anne-Marie Bernstein MD [address] [place] [address] Phone: tel: fax: [facility] [address] [place] [address] Referral ID Status Reason Start Date Expiration Date Visits Re quested Visits Authorized [id number] 1 1 Reason Comments New Patient Can't be outside whe n hot with her POTS while . Higher resting heart rate while 70's-80's. Specialty Diagnoses / Procedures Referred By Contac t Referred To Contact Adult Congenital Heart Disease Diagnoses POTS (postural orthostatic tachycardia syndrome) Loyd Prado MD [address] [place] [phone] Phone: tel: fax: Referral ID Status Reason Start Date Expiration Date V isits Requested Visits Authorized [id number] New Request 09/01/2024 09/26/2025 1 1 Specialty Diagnoses / Procedures Referred By Contac t Referred To Contact Diagnoses POTS (postural orthostatic tachycardia syndrome) Yola-Danlos syndrome type III Procedures US OB GROWTH/DATING > 14WEEKS Loyd Prado MD [address] [place] [phone] Phone: tel: fax: Referral ID Status Reason Start Date Expiration Date V isits Requested Visits Authorized [id number] New Request 09/01/2024 09/26/2025 1 1 Reason Comments Ultrasound Routine Visit MFM co-manage Fabien Huitron MD - 06/16/2018 5:57 PM Madison Cortez RN - 06/16/2018 5:34 PM Mandy Ellis RN - 06/22/2018 5:50 PM Juancho Black RN - 06/22/2018 5:22 PM EDT ED Notes (unrecognized secti on and content) ED PROVIDER NOTE [facility] EMERGENCY DEPARTMENT NAME: Ethan Hernandez AGE: 13 y.o. : 2005 VISIT DATE: 06/16/2018 CSN: [id number] PCP: Milton Leos MD Chief Complaint Patient [...] at nationwide but will be establishing in [place] for another opinion. Also in the last [...] aware Physician at bedside. Possible transfer to [place]. Mother unsure if she wants child [facility] PROVIDER NOTE [facility] EMERGENCY DEPARTMENT NAME: Ethan Hernandez AGE: 13 y.o. : 2005 VISIT DATE: 06/22/2018 CSN: [id number] PCP: Milton Leos MD Chief Complaint Patient presents with Emesis Dehydration Patient presents to the emergency room for dehydration due to nausea and vomiting. Patient was evaluated in the emergency room here on Saturday, June 16, 2018 and by specialist at the [facility] on Monday June 18, 2018. Family [...] June 16, 2018 and the consult with [facility] on June 18, 2018. 1645-I spoke with Dr. Gold from [facility]. 1720- Dr. Gold spoke with the [...] care in stable condition. Follow-up Information 1. [facility]. Why: ELEAZAR to schedule appointment in [...] bedside for blood draw. ED PROVIDER NOTE [facility] EMERGENCY DEPARTMENT NAME: Ethan Hernandez AGE: 13 y.o. : 2005 VISIT DATE: 09/22/2018 CSN: [id number] PCP: Milton Leos MD Chief Complaint Patient [...] file Gets together: Not on file Attends jew service: Not on file Active member of [...] Resting with eyes closed. ED PROVIDER NOTE [facility] EMERGENCY DEPARTMENT NAME: Ethan Hernandez AGE: 13 y.o. : 2005 VISIT DATE: 12/14/2018 CSN: [id number] PCP: Milton Leos MD Chief Complaint Patient presents with Rectal Bleeding HPI Patient is a 13 female with a history of hypermobile EDS(Yola-Danlos disease) and chronic nausea, vomiting, abdominal pain who recently underwent an EGD/colonoscopy with biopsies on Tuesday 12/12 (2 days ago) in [place], brought to the ED by mother for abdominal pain, distension, nausea, vomiting and bloody stools. In the ED, patient is awake,alert, GC'S is 15 and initial vitals BP of 118/81 pulse is 69 pulse ox is 97% on room air she is afebrile at 98.[address] Leatha Patton GI fellow from [place] called and updated me on the information [...] file Gets together: Not on file Attends jew service: Not on file Active member of [...] Yellow Clarity, Urine Hazy (A) Clear Specific [place] 1.013 1.005 - 1.025 pH, Urine 7.0 [...] to explain patient's symptoms. 2. Previous appendectomy. [facility] Workstation ID: [id number] Procedures MDM Patient is a 13 years old female with hypermobile EDS and chronic nausea/vomiting/abdominal pain who recently underwent an EGD/colonoscopy with biopsies on Tuesday 12/12 (2 days ago) brought to the ED by mother for nausea, vomiting, abdominal pain, distension and bloody stools. Patient's GI Dr. Patton([phone]) in [place] called recommended further work-up to rule out [...] Specialty: Family Medicine Why: If symptoms worsen [facility] [address] Contact information for after-discharge care Follow-up information has not been specified. New Prescriptions ondansetron (ZOFRAN) 4 MG tablet Take 1 (one) tablet (4 mg total) by mouth every 6 (six) hours as needed for nausea TAKE HOME PACK . Eun Cadena MD 12/15/18 0102 Medicated. Mother at [facility]. IV bolus infusing Pt and mother [...] all results are back. ED PROVIDER NOTE [facility] EMERGENCY DEPARTMENT NAME: Ethan Hernandez AGE: 13 y.o. : 2005 VISIT DATE: 03/23/2019 CSN: [id number] PCP: Milton Leos MD Chief Complaint Patient [...] file Gets together: Not on file Attends jew service: Not on file Active member of [...] ELEAZAR to schedule appointment in 1-3 days [facility] [address] [place] [id number] Contact information for after-discharge care Follow-up information [...] documented in this encounter ED PROVIDER NOTE [facility] EMERGENCY DEPARTMENT NAME: Ethan Hernandez AGE: 14 y.o. : 2005 VISIT DATE: 05/19/2019 CSN: [id number] PCP: Milton Leos MD Chief Complaint Patient [...] file Gets together: Not on file Attends jew service: Not on file Active member of [...] Associated Order(s): EKG 12-lead ED PROVIDER NOTE [facility] EMERGENCY DEPARTMENT NAME: Ethan Hernandez AGE: 15 y.o. : 2005 VISIT DATE: 05/17/2020 CSN: [id number] PCP: Milton Leos MD Chief Complaint Patient [...] file Gets together: Not on file Attends jew service: Not on file Active member of [...] history of acid reflux. Patient can take [id number] medications for symptomatic control. Follow-up with PCP. [...] Medicine Why: in 3-4 days [address] [facility] [address] Contact information for after-discharge care Follow-up [...] PACU without intraoperative complication. 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 Item Serial No. Berry Picker Machine Operator Lot No. LRB No. Used Action SCREW 4 X 36MM JENNY SHORT THRD - [id number] SCREW 4 X 36MM JENNY SHORT THRD SYNTHES LT LOAD 23 Right 1 Implanted SCREW 4 X 40MM JENNY SH[employer] THRD - [id number] SCREW 4 X 40MM JENNY SH[employer] THRD SYNTHES LT LOAD 23 Right 1 Implanted SCREW 4 X 42MM JENNY SH[employer] THRD - [id number] SCREW 4 X 42MM [employer]EN[employer] THRD SYNTHES LT LOAD 23 Right 1 Implanted Drain(s): * No LDAs found * Wound(s): Wound 10/14/19 Surgical Wound Knee Right (Active) Dressing Status Clean;Intact;Dry 10/14/2019 12:53 PM Mary Miguel MD 10/14/2019 1:07 PM documented in this encounter Mary Miguel MD - 10/14/2019 10:02 AM EDTBerMary condon MD - 10/08/2019 1:26 PM EDT H&P Notes (unrecognized sect ion and content) INTERVAL HISTORY AND PHYSICAL Patient Name: Ethan Hernandez Admit Date: MR #: [id number] : 2005 The H&P has been reviewed [...] to latex and coconut. Medicines include p.r.n. uyin-fpy-lmbmihy antiinflammatories. SURGERIES Tonsils and adenoids, appendectomy, upper [...] Care Teams (unrecognized sec tion and content) [employer] St[employer] Machine Operator Relationship Specialty Start Date End Date Milton [place] [address] PCP - General Family Medicine 12/17/17 [employer] Machine Operator Relationship Specialty Start Date End Date Milton Leos MD [address] [place], [place] [id number] PCP - General Family Medicine 12/17/17 [employer] Machine Operator Relationship Specialty Start Date End Date Milton Leso MD PCP - General Family Medicine 10/01/16 [employer] Machine Operator Relationship Specialty Start Date End Date Milton Leos MD [address] [place] [address] PCP - General Family Medicine 12/17/17 [employer] Machine Operator Relationship Specialty Start Date End Date Milton Leos MD [address] [place], [place] [id number] PCP - General Family Medicine 12/17/17 [employer] Machine Operator Relationship Specialty Start Date End Date Milton Leos MD [address] [place] [address] PCP - General Family Medicine 12/17/17 [employer] Machine Operator Relationship Specialty Start Date End Date Meme Gimenez APRN-SUPERVISOR [employer] [address] [facility] [place] [address] PCP - General Certified Nurse Practitioner 01/03/22 [employer] Machine Operator Relationship Specialty Start Date End Date Meme Gimenez APRN-SUPERVISOR [employer] [address] [facility] [place] [address] PCP - General Certified Nurse Practitioner 01/03/22 [employer]ayer Machine Operator Relationship Specialty Start Date End Date Meme Gimenez APRN-SUPERVISOR [employer] [address] [facility] [place] [address] PCP - General Certified Nurse Practitioner 01/03/22 [employer] Stayer Machine Operator Relationship Specialty Start Date End Date Meme Gimenez SUPERVISOR [employer] [address] [facility] [place] [address] PCP - General Family Medicine 03/28/22 [employer] Stayer Machine Operator Relationship Specialty Start Date End Date Meme Gimenez, SUPERVISOR [employer] [address] [facility] [place] [address] PCP - General Family Medicine 03/28/22 [employer] Stayer Machine Operator Relationship Specialty Start Date End Date Meme Gimenez SUPERVISOR [employer] [address] [facility] [place] [address] PCP - General Family Medicine 03/28/22 [employer] Stayer Machine Operator Relationship Specialty Start Date End Date Meme Gimenez SUPERVISOR [employer] [address] [facility] [place] [address] PCP - General Family Medicine 03/28/22 [employer] Stayer Machine Operator Relationship Specialty Start Date End Date Meme Gimenez SUPERVISOR [employer] [address] [facility] [place] [address] PCP - General Family Medicine 03/28/22 [employer] Stayer Machine Operator Relationship Specialty Start Date End Date Meme Gimenez SUPERVISOR [employer] [address] [facility] [place] [address] PCP - General Family Medicine 03/28/22 [employer] Stayer Machine Operator Relationship Specialty Start Date End Date Meme Gimenez APRN-SUPERVISOR [employer] [address] [facility] [place] [address] PCP - General Certified Nurse Practitioner 01/03/22 [employer] Stayer Machine Operator Relationship Specialty Start Date End Date Meme Gimenez APRN-SUPERVISOR [employer] [address] [facility] [place] [address] PCP - General Certified Nurse Practitioner 01/03/22 [employer] Stayer Machine Operator Relationship Specialty Start Date End Date Meme Gimenez APRN-SUPERVISOR [employer] [address] [facility] [place] [address] PCP - General Certified Nurse Practitioner 01/03/22 [employer] Stayer Machine Operator Relationship Specialty Start Date End Date Meme Gimenez APRN-SUPERVISOR [employer] [address] [facility] [place] [address] PCP - General Certified Nurse Practitioner 01/03/22 [employer] Stayer Machine Operator Relationship Specialty Start Date End Date Meme Gimenez APRN-SUPERVISOR [employer] [address] [place] [address] PCP - General Certified Nurse Practitioner 01/03/22 [employer] Stayer Machine Operator Relationship Specialty Start Date End Date Meme Gimenez CNP [address] [place] [address] PCP - General Family Medicine 03/28/22 [employer]ayer Machine Operator Relationship Specialty Start Date End Date Meme Gimenez CNP [address] [place] [address] PCP - General Family Medicine 03/28/22 [employer] Stayer Machine Operator Relationship Specialty Start Date End Date Meme Gimenez APRN-SUPERVISOR [employer] [address] [place] [address] PCP - General Certified Nurse Practitioner 01/03/22 [employer] Stayer Machine Operator Relationship Specialty Start Date End Date Meme Gimenez APRN-CNP [address] [place] [address] PCP - General Certified Nurse Practitioner 01/03/22 [employer]ayer Machine Operator Relationship Specialty Start Date End Date Meme Gimenez APRN-CNP [address] [place] [address] PCP - General Certified Nurse Practitioner 01/03/22 [employer] Stayer Machine Operator Relationship Specialty Start Date End Date Meme Gimenez CNP [address] [place] [address] PCP - General Family Medicine 03/28/22 [employer] Stayer Machine Operator Relationship Specialty Start Date End Date Meme Gimenez CNP [address] [place] [address] PCP - General Family Medicine 03/28/22 [employer] Stayer Machine Operator Relationship Specialty Start Date End Date Meme Gimenez CNP [address] [place] [address] PCP - General Family Medicine 03/28/22 [employer] Stayer Machine Operator Relationship Specialty Start Date End Date Meme Gimenez CNP [address] [place] [address] PCP - General Family Medicine 03/28/22 [employer] Stayer Machine Operator Relationship Specialty Start Date End Date Meme Gimenez CNP [address] [place] [address] PCP - General Family Medicine 03/28/22 [employer] Stayer Machine Operator Relationship Specialty Start Date End Date Meme Gimenez CNP [address] [place] [address] PCP - General Family Medicine 03/28/22 [employer] Stayer Machine Operator Relationship Specialty Start Date End Date Meme Gimenez APRN-ARNOLD [address] [place] [address] PCP - General Certified Nurse Practitioner 01/03/22 [employer] Stayer Machine Operator Relationship Specialty Start Date End Date Meme Gimenez APRN-ARNOLD [address] [place] [address] PCP - General Certified Nurse Practitioner 01/03/22 [employer] Stayer Machine Operator Relationship Specialty Start Date End Date Meme Gimenez CNP [address] [place] [address] PCP - General Family Medicine 03/28/22 [employer] Stayer Machine Operator Relationship Specialty Start Date End Date Meme Gimenez CNP [address] [place] [address] PCP - General Family Medicine 03/28/22 [employer] Stayer Machine Operator Relationship Specialty Start Date End Date Meme Gimenez CNP [address] [place] [address] PCP - General Family Medicine 03/28/22 [employer] Stayer Machine Operator Relationship Specialty Start Date End Date Pernell JIMMY Barfield-SUPERVISOR [employer] [address] [place] [address] PCP - General Certified Nurse Practitioner 01/03/22 [employer] Stayer Machine Operator Relationship Specialty Start Date End Date Meme Gimenez CNP [address] [place] [address] PCP - General Family Medicine 03/28/22 [employer] Stayer Machine Operator Relationship Specialty Start Date End Date Meme Gimenez CNP [address] [place] [address] PCP - General Family Medicine 03/28/22 [employer] Stayer Machine Operator Relationship Specialty Start Date End Date Meme Gimenez CNP [address] [place] [address] PCP - General Family Medicine 03/28/22 [employer] Stayer Machine Operator Relationship Specialty Start Date End Date Meme Gimenez CNP [address] [place] [address] PCP - General Family Medicine 03/28/22 [employer] Stayer Machine Operator Relationship Specialty Start Date End Date Meme Gimenez CNP [address] [facility] [place] [address] PCP - General Family Medicine 03/28/22 [employer] Stayer Machine Operator Relationship Specialty Start Date End Date Meme Gimenez CNP [address] [facility] [place] [address] PCP - General Family Medicine 03/28/22 [employer] Stayer Machine Operator Relationship Specialty Start Date End Date Meme Gimenez APRN-SUPERVISOR [employer] [address] [facility] [place] [address] PCP - General Certified Nurse Practitioner 01/03/22 [employer] Stayer Machine Operator Relationship Specialty Start Date End Date Meme Gimenez APRN-CNP [address] [facility] [place] [address] PCP - General Certified Nurse Practitioner 01/03/22 [employer] Stayer Machine Operator Relationship Specialty Start Date End Date Meme Gimenez APRN-SUPERVISOR [employer] [address] [place] [facility] [place] [address] PCP - General Certified Nurse Practitioner 01/03/22 [employer] Stayer Machine Operator Relationship Specialty Start Date End Date Meme Gimenez APRN-SUPERVISOR [employer] [address] [place] [address] PCP - General Certified Nurse Practitioner 01/03/22 [employer] Stayer Machine Operator Relationship Specialty Start Date End Date Meme Gimenez APRN-CNP [address] [place] [address] PCP - General Certified Nurse Practitioner 01/03/22 [employer] Stayer Machine Operator Relationship Specialty Start Date End Date Meme Gimenez APRN-CNP [address] [facility] [place] [address] PCP - General Certified Nurse Practitioner 01/03/22 [employer] Stayer Machine Operator Relationship Specialty Start Date End Date Meme Gimenez APRN-SUPERVISOR [employer] POND [address] [facility], [place] [id number] PCP - General Certified Nurse Practitioner 01/03/22 [employer] Stayer Machine Operator Relationship Specialty Start Date End Date Meme Gimenez APRN-SUPERVISOR [employer] POND [address] [facility] [place] [address] PCP - General Certified Nurse Practitioner 01/03/22 [employer] Stayer Machine Operator Relationship Specialty Start Date End Date Meme Gimenez APRN-CNP [address] [place] [address] PCP - General Certified Nurse Practitioner 01/03/22 [employer] Stayer Machine Operator Relationship Specialty Start Date End Date Meme Gimenez APRN-CNP [address] [place] [address] PCP - General Certified Nurse Practitioner 01/03/22 [employer] Stayer Machine Operator Relationship Specialty Start Date End Date Meme Gimenez APRN-CNP [address] [place] [address] PCP - General Certified Nurse Practitioner 01/03/22 [employer] Stayer Machine Operator Relationship Specialty Start Date End Date Meme Gimenez APRN-CNP [address] [place] [address] PCP - General Certified Nurse Practitioner 01/03/22 [...] Inactive Member Role/Relationship Status Dates Lenora Vidal BUILDING PERFORMANCE CONSULTANT, BUILDING PERFORMANCE CONSULTANT-C Attending physician Active Start: December 07, 2024 End: December 07, 2024 Team Status: Active Member Role/Relationship Status Dates Lenora Vidal BUILDING PERFORMANCE CONSULTANT, BUILDING PERFORMANCE CONSULTANT-C Attending physician Active Start: December 07, 2024 [...] 0837 (Given - Provid er: Anushka Davis APRN-SENIOR MEDICAL TECHNOLOGIST) Gabapentin (NEURONTIN) capsule 300 mg (COMPLETED) 300 [...] Use when inserting peripheral IV, Pre-op/Pre-Proc Lidocaine-epinephrine 1%-1:[id number] injection (CANCELED) NEEDED, Starting on Sat08/06/22 at [...] Kai Manzanares RN)1421 (Stopped - Provider: Sahil Angiuano RN) Scheduled Medication Order 07/17/2023 07/18/2023 07/19/2023 [...] after dose 1924 (Given - Provid er: [facility]) Ketorolac (TORADOL) injection 30 mg (COMPLETED) 30 mg, Intramuscular, ONCE, 1 dose, On 09/15/23 at 1945 1925 (Given - Provid er: [facility]) Scheduled Medication Order 11/26/2023 11/27/2023 [...] BE BASED ON THE PRIMARY CLINICAL RECORDS. [employer] provides no warranty or guarantee of the accuracy or completeness of information in this document.
--- NOTE | 2024-12-16 20:35 | HP.PCM.OB_ITS ---
HPI - General General Date of Admission: 12/16/24 HPI Narrative ETHAN SINGH, is a 19 F who presents with a 1 week history of worsening headache resistant to Tylenol. Patient was given Phenergan and Oxy IR upon presentation today to see if it improved headache and it actually worsened her headache. Patient now has blood pressures increasing to 157/97 and proteinuria. The rest of her labs are within normal limits. No hyperreflexia. Patient denies any visual changes but has had some nausea and upset stomach. Patient has had an increase in anxiety. Patient has also had breech presentation. She has had irregular contractions and is found to be 2/80 and -2 upon initial p resentation. Maternal Data Information HILTON Calculator Estimated Delivery Date Method Current WG Current Estimate 01/26/25 LMP (Uncertain) 34w 1d PFSH PFSH Medical History Heart murmur Depression Post concussion syndrome Irregular periods (10/01/16) Hematochezia (11/01/20) Deliberate self-cutting (06/08/19) Aphthous ulcer of mouth (11/01/20) Anxiety Anemia Nephrolithiasis Home Medications ?Medication ?Instructions ?Recorded ?Last Taken ?Type PNV 153-FA 400 mcg-om3 35 mg-dha tab PO 11/12/24 Unkno wn History 25 mg-epa 5 mg-fish oil chew tablet famotidine 40 mg tablet (Pepcid) 40 mg PO BID 11/12/24 Unknown History Allergy/AdvReac Type Severity Reaction Status Date / Time coconut Allergy Intermediate Hives Verified 12/07/24 08:21 Latex, Natural Rubber Allergy Intermediate Rash Verified 12/07/24 08:21 Family History Mother CVA (cerebral vascular accident), Onset Age: 30 Hypertension Maternal Grandmother Diabetes Non-alcoholic micronodular cirrhosis of liver Splenic artery aneurysm Arthritis Maternal Grandfather High cholesterol Hypertension Sister PCOS (polycystic ovarian syndrome) half sister Bipolar 1 disorder half sister Borderline personality disorder Half sister Inappropriate sinus tachycardia half sister Brother Autism half brother Epilepsy half brother Uncle Cancer, Onset Age: 35 skin Surgical History Hx of laparoscopy History of esophagogastroduodenoscopy (EGD) (~2018) Hx of colonoscopy (~2018) H/O lithotripsy (~2022) S/P breast biopsy, left (04/25/22) H/O right knee surgery (08/06/22) Hx of appendectomy History of tonsillectomy and adenoidectomy (12/04/17) Social History adopted: No household members: spouse current occupational status: unemployed and student 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 current occupational exposures/hazards: No pets and animals: Yes pets and animals: dog(s) history of recent travel: Yes ( -September) out of state: Yes out of country: No sexually active: Yes Smoking Status: Never smoker alcohol intake: current details: not while substance use type: does not use well-balanced diet: daily or most days caffeine: Yes Type: coffee Number of servings: 1 eating out: rarely or never during the past year weight has: increased > 10 lbs what type of physical activity do you participate in: walking frequency: 5-6 times per week duration: 30-45 minutes/day magdiel/druze: None seatbelt use: always do you feel safe at home: Yes additional social history: Millie Castano History 1 Elective abortions Hx Para 0 Spontaneous abortions Hx # Term Pregnancies Ectopic pregnancies Hx # Pregnancies Multiple births # of living children Visit Details Expected Delivery Route/Plan Labor Preferences- CB/BF classes: encouraged labor support person: Sahil labor intervention preferences: [] pain management options preferred: wants limited intervention cut cord/dad catch: cord : yes PP control planned: [] discussed possible routes of delivery and associated risks: [] special requests: [] Plans Covid status: [] Flu vaccine: [] Tdap vaccine: received in [place] Rhogam: NA LARC form signed: yes Problem list reviewed and updated with the most current plan of care details and appropriate orders placed. Relevant counseling for the gestational age provided. Continue routine care and follow up unless otherwise noted in visit notes/problem list details OB Flowsheet Initial Weight: Not Recorded Date -?-?-?-?-?-?-?-?-?-?-?-?- EGA Weight BP Urine Prot -?-?-?-?-?-?-?-?-?-?-?-?- Glucose FHR FuHt Pres Dilation -?-?-?-?-?-?-?-?-?-?-?-?- Effaced St Visit Note 11/19/24 -?-?-?-?-?-?-?-?-?-?-?-?- 30w 2d 176 lb 5 oz 120/72 Nega tive -?-?-?-?-?-?-?-?-?-?-?-?- Negative 146 29 -?-?-?-?-?-?-?-?-?-?-?-?- JV- new [facility] from [facility]. was not happy with care there. Needs follow up growth with [facility] for EDS. had low risk nipt. normal glucola. 12/07/24 -?-?-?-?-?-?-?-?-?-?-?-?- 32w 6d 183 lb 5 oz 122/81 Nega tive -?-?-?-?-?-?-?-?-?-?-?-?- Negative 136 31 -?-?-?-?-?-?-?-?-?-?-?-?- MH-No VB. Jose F Bertrand. States headache and vision changes entire but had previously r/t POTS. Pre E labs. [facility] NST FHR Rate Baby A Baseline: 130 Variability:: Moderate Accelerations:: 15 x 15 Decelerations:: None NST Reactive:: Yes FHR Category:: Category I Uterine Activity:: irregular ROS Constitutional Constitutional: Reports systems reviewed and no addt'l complaints, except as documented Eyes Eyes: Denies change in vision ENT HEENT: Reports systems reviewed and no addt'l complaints, except as documented; Denies headache(s) Cardiovascular Cardiovascular: Reports systems reviewed and no addt'l complaints, except as d ocumented; Denies chest pain or dyspnea Respiratory/Chest Respiratory/Chest: Reports systems reviewed and no addt'l complaints, except as documented Gastrointestinal Gastrointestinal: Reports systems reviewed and no addt'l complaints, except as documented; Denies abdominal pain Genitourinary Genitourinary: Reports systems reviewed and no addt'l complaints, except as documented, contractions Details: present (irregular) and movement Details: present; Denies dysuria or genital lesions Musculoskeletal Musculoskeletal: Reports systems reviewed and no addt'l complaints, except as documented Neurologic Neurologic: Reports systems reviewed and no addt'l complaints, except as documented Endocrine Endocrinology: Reports systems reviewed and no addt'l complaints, except as documented Vital Signs Vital Signs Vital Signs: 12/16/24 16:44 12/16/24 16:44 12/16/24 16:45 Temperature Temperature Source Pulse Rate 71 Respiratory Rate 12 Blood Pressure BP Systolic BP Diastolic Pulse Ox 98 12/16/24 16:45 12/16/24 16:45 12/16/24 16:45 Temperature 97.8 F Temperature Source Tympanic Pulse Rate Respiratory Rate Blood Pressure BP Systolic BP Diastolic Pulse Ox 99 12/16/24 16:47 12/16/24 16:47 12/16/24 16:49 Temperature Temperature Source Pulse Rate 68 77 Respiratory Rate Blood Pressure 138/87 H BP Systolic 138 BP Diastolic 87 Pulse Ox 12/16/24 16:49 12/16/24 16:54 12/16/24 16:54 Temperature Temperature Source Pulse Rate 70 Respiratory Rate Blood Pressure BP Systolic BP Diastolic Pulse Ox 98 98 12/16/24 16:59 12/16/24 16:59 12/16/24 17:05 Temperature Temperature Source Pulse Rate 73 73 Respiratory Rate Blood Pressure BP Systolic BP Diastolic Pulse Ox 99 12/16/24 17:05 12/16/24 17:10 12/16/24 17:10 Temperature Temperature Source Pulse Rate 73 Respiratory Rate Blood Pressure BP Systolic BP Diastolic Pulse Ox 99 99 12/16/24 17:15 12/16/24 17:15 12/16/24 17:20 Temperature Temperature Source Pulse Rate 68 69 Respiratory Rate Blood Pressure BP Systolic BP Diastolic Pulse Ox 97 12/16/24 17:20 12/16/24 17:25 12/16/24 17:25 Temperature Temperature Source Pulse Rate 76 Respiratory Rate Blood Pressure BP Systolic BP Diastolic Pulse Ox 99 99 12/16/24 17:30 12/16/24 17:30 12/16/24 17:31 Temperature Temperature Source Pulse Rate 74 Respiratory Rate Blood Pressure 147/94 H BP Systolic 147 BP Diastolic 94 Pulse Ox 99 12/16/24 17:31 12/16/24 17:35 12/16/24 17:35 Temperature Temperature Source Pulse Rate 75 83 Respiratory Rate Blood Pressure BP Systolic BP Diastolic Pulse Ox 99 12/16/24 17:40 12/16/24 17:40 12/16/24 17:45 Temperature Temperature Source Pulse Rate 85 76 Respiratory Rate Blood Pressure BP Systolic BP Diastolic Pulse Ox 99 12/16/24 17:45 12/16/24 17:50 12/16/24 17:50 Temperature Temperature Source Pulse Rate 81 Respiratory Rate Blood Pressure BP Systolic BP Diastolic Pulse Ox 98 99 12/16/24 17:55 12/16/24 17:55 12/16/24 18:00 Temperature Temperature Source Pulse Rate 78 80 Respiratory Rate Blood Pressure BP Systolic BP Diastolic Pulse Ox 98 12/16/24 18:00 12/16/24 18:05 12/16/24 18:05 Temperature Temperature Source Pulse Rate 76 Respiratory Rate Blood Pressure BP Systolic BP Diastolic Pulse Ox 98 97 12/16/24 19:11 12/16/24 19:11 12/16/24 19:27 Temperature Temperature Source Pulse Rate 71 Respiratory Rate Blood Pressure 144/95 H 151/96 H BP Systolic 144 151 BP Diastolic 95 96 Pulse Ox 12/16/24 19:27 12/16/24 19:41 12/16/24 19:41 Temperature Temperature Source Pulse Rate 73 75 Respiratory Rate Blood Pressure 154/96 H BP Systolic 154 BP Diastolic 96 Pulse Ox 12/16/24 19:56 12/16/24 19:56 Temperature Temperature Source Pulse Rate 85 Respiratory Rate Blood Pressure 157/91 H BP Systolic 157 BP Diastolic 91 Pulse Ox Weight Weight: 184 lb Body Mass Index (BMI) 27.9 Physical Exam Const alert, oriented x3, no apparent distress and healthy appearing HEENT normocephalic and moist oral mucous membranes Head and Scalp: atraumatic Neck full ROM, no lymphadenopathy, supple and thyroid normal General: trachea midline Lymph Lymphatic: no lymphadenopathy noted Chest inspection of chest normal Resp normal respiratory effort Cardio regular rate GI soft to palpation and non-tender GI Narrative: gravid Inspection: gravid external exam normal Narrative: Fetus breech on ultrasound Manual OB Exam: estimated gestational size appropriate, dilated 2, effaced and station Extremity normal to inspection General Extremity: Negative for edema Skin no rashes or lesions noted Neuro no focal motor deficits and deep tendon reflexes 2+ bilaterally Motor Exam: strength 5/5 throughout and clonus absent Psych mental status grossly normal Labs Labs Labs: Hct, (37-47) 32.2 % L Hgb, (12.0-15.0) 11.1 g/dL L Assessment & Plan (1) Preeclampsia, severe: COMMENT: neuro features present, borderline severe pressures proceed with primary , s/p bmz x 1, start magnesium and give for 24 hours (2) Anemia in preg-unspec: COMMENT: add FE (3) Marginal insertion of umbilical cord: COMMENT: growth Q4w (4) Positive GBS test: COMMENT: treat in labor (5) Supervision of high-risk : QUALIFIERS: Trimester: third trimester Qualified Code(s): O09.93 - Supervision of high risk , unspecified, third trimester COMMENT: PRR([facility]), HILTON 01/26/26, Sahil (6) : QUALIFIERS: Weeks of gestation: 32 weeks Qualified Code(s): Z3 A.32 - 32 weeks gestation of COMMENT: NIPT low risk, gender male-pt unsure if had carrier (7) Personal history of kidney stones: COMMENT: 3 different times (8) Normal echocardiogram: COMMENT: EF 60-65% 09/29/24 [facility] (9) Gastroparesis: COMMENT: stool softeners (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 (12) Breech presentation: COMMENT: declined version plan primary csecton PLAN: Plan Preeclampsia with severe features due to neurologic symptoms resistant to intervention, borderline severe pressures. Recommend proceeding with delivery since she is after 34 weeks. Will start magnesium sulfate. Patient is breech presentation and declines external cephalic version will proceed with primary low-transverse .
[2024-12-16] MEDS: Magnesium Sulfate 4gm/100mL 4 GM/100 ML IV.SOLN. IV (20:41)
--- NOTE | 2024-12-16 20:41 | EX.PCM.OBRPT ---
Assessment & Plan (1) Breech presentation: COMMENT: declined version plan primary csecton (2) Preeclampsia, severe: COMMENT: neuro features present, borderline severe pressures proceed with primary , s/p bmz x 1, start magnesium and give for 24 hours (3) Anemia in preg-unspec: COMMENT: add FE (4) Marginal insertion of umbilical cord: COMMENT: growth Q4w (5) Positive GBS test: COMMENT: treat in labor (6) Supervision of high-risk : QUALIFIERS: Trimester: third trimester Qualified Code(s): O09.93 - Supervision of high risk , unspecified, third trimester COMMENT: PRR(scanned [facility]), [place] 01/26/26, Sahil (7) : QUALIFIERS: Weeks of gestation: 32 weeks Qualified Code(s): Z3A.32 - 32 weeks gestation of COMMENT: NIPT low risk, gender male-pt unsure if had carrier (8) Personal history of kidney stones: COMMENT: 3 different times (9) GERD (gastroesophageal reflux disease): (10) Fibromyalgia: (11) Bipolar 2 disorder: (12) UTI in : QUALIFIERS: Trimester: third trimester Qualified Code(s): O23.43 - Unspecified infection of urinary tract in , third trimester (13) Normal echocardiogram: COMMENT: EF 60-65% 09/29/24 [facility] (14) Gastroparesis: COMMENT: stool softeners (15) Yola-Danlos syndrome type III: COMMENT: growth scan Q4w 32w (16) POTS (postural orthostatic tachycardia syndrome): COMMENT: Has service dog. (17) delivery delivered: COMMENT: [facility] 34 severe preeclampsia Boy Young breech Maternal Data Information HILTON Calculator Estimated Delivery Date Method Current WG Current Estimate 01/26/25 LMP (Uncertain) 34w 1d Operative Report (OB) Procedure Details Date of Procedure: 12/16/24 Procedure Start Time: 09:43 Pre-Operative Diagnosis: Breech and Other Other Pre-Operative diagnosis: see a/p comments Post-Operative Diagnosis: Same as Pre-operative diagnosis Classification: Scheduled Type of Anesthesia: Spinal Special Medications: none Antibiotic Given: Ancef 2 grams IV x1 Drain: Page to straight drain Estimated Blood Loss: 700 Fluids Replaced: crystalloid Findings Description of surgery: Spinal anesthesia was placed without difficulty. Page catheter was placed. The patient was placed in the dorsal supine position with leftward tilt. Patient was prepped and draped in the normal sterile fashion. Pfannenstiel skin incision was made with the scalpel and carried through to the underlying layer of fascia with the scalpel. Fascia was nicked in the midline and the incision extended laterally. The rectus bellies were dissected off superiorly and inferiorly with out complication both sharply and bluntly. The peritoneum was entered digitally. The incision was stretched and a low transverse uterine incision was made with the scalpel. The feet and then buttox was delivered atraumatically, followed by the body and the arms which were swept anteriorly and delivered. Gentle traction was placed on the mentum to flex the head which was delivered without complication. The cord was clamped and cut and the infant was handed off to awaiting nurse. The placenta was delivered spontaneously immediately following and was noted to be intact and have a three-vessel cord. The uterus was exteriorized cleared of all clots and debris, and the incision was closed in a single layer closure using #1 Monocryl. The ovaries and fallopian tubes were noted to be within normal limits. The uterus was returned to the maternal abdomen and gutters were cleared of all clots and debris. The peritoneum was closed with 3-0 Monocryl in a running fashion. Gloves were changed prior to fascial closure. Fascia was closed with 0 PDS in a running fashion. Subcutaneous tissue was copiously irrigated and the skin was closed with 3-0 Monocryl in a subcuticular fashion. Mepilex dressing was applied without complication. Patient was taken to recovery in stable condition. It was discussed with the patient that based on the clinical information obtained during this encounter, combined with her history, at this time I would recommend vaginal or for future deliveries if further pregnancies are desired. Surgical findings: breech Amniotic Membrane Rupture Type: Artificial Amniotic Fluid Description: Clear Specimen collected: Yes Description of specimen(s) removed: Placenta Cord Vessel Description: 3 Vessels Delayed Cord Clamping: Yes Inspector Soldering extrusion supervisor: Yes Design Maker: Genia Langston Tasks completed by hotel assistant general manager: Opening & closing, Retracting and Other (Assisting with delivery of the ) Additional railways assistant?: No Complications Complications: No Admit VTE Documentation VTE Present on Admission: No VTE Mechan Device Prophylaxis: SCD's Procedures Urinary/Genital [id number]: [id number] delivery+PP Care([facility])
--- NOTE | 2024-12-16 20:54 | DCINST_ITS ---
Discharge Instructions DC O2, CPAP, BIPAP needs Home O2 Discharge instructions: No Dressing / Incision Discharge Activity: May Not Drive (for 2 weeks or while taking narcotic pain medications.), May Shower and May Take a Tub Bath (in 7 days) May shower in (days): 0 May resume sexual activity in: 4-6 weeks Weight Bearing Status: Full weight bearing Lifting Restrictions: 20 pounds Dressing / Incision Call your doctor if your incision/area has: Continuous Slow Oozing, Sudden Increased Bleeding, Increased Pain/ Swelling, Increased Redness and Foul Smelling Discharge Call your doctor if you observe: Fever of 101 or Higher and Using more than 1 pad per hour (for 2 hours) Suture Line Care: Avoid Pulling/Pushing and Avoid Pinching/Bending Cleanse incision/area with: Soap & Water and Keep Dressing Clean & Dry Follow Up Care Please Follow Up With: Dora Doe MD When: Call [phone] to make an appointment for an incision check in 1-2 weeks. Test Results: Test results from this visit will be discussed in further detail at your follow- up appointment, if applicable. Discharge Plan Admission Admit Date/Time: 12/16/24 20:00 Attending Provider: Dora Doe Discharge Orders/Prescriptions Prescriptions: New oxycodone-acetaminophen [Percocet] 5-325 mg tablet 1 tab PO Q4H PRN (Reason: pain) 7 Days Qty: 20 0RF naproxen 500 mg tablet 500 mg PO BID PRN PRN (Reason: Pain) Qty: 30 1RF No Action PNV [id number] 400 mcg-35 mg- 25 mg-5 mg tablet,chewable PO famotidine [Pepcid] 40 mg tablet 40 mg PO BID Disposition Disposition (needs filled in before D/C Order can be placed): Home, Self Care
[2024-12-16] MEDS: Magnesium Sulfate 20 GM/500 ML BAG IV (21:05)
[2024-12-16 21:32] LABS: Syphilis Antibodies Nonreactive (Nonreactive)
[2024-12-16] MEDS: Cefazolin 1 GM/5 ML Vial 2 GM IV (21:34)
[2024-12-16 22:00] LABS: HIV Nonreactive (Nonreactive); Hepatitis B Surface Antigen Nonreactive (Nonreactive)
[2024-12-16] MEDS: Lactated Ringers 1,000 ML 1000 ML IV (22:05)
[2024-12-16] MEDS: fentaNYL 100 MCG/2 ML Ampul IV (22:28)
[2024-12-16] MEDS: Oxytocin 15 Units/NS 250ml 15 UNITS/250 ML IV.SOLN 83 UNITS IV (23:10)
[2024-12-16] MEDS: Ketorolac 30 MG/ML Syringe IV (23:24)
[2024-12-17] VITALS (28 sets, daily range): BP systolic 111–146; BP diastolic 69–99; PULSE 53–88; RESP 14–18; TEMP 35.8–37; O2SAT 95–100
[2024-12-17] MEDS: Ketorolac 30 MG/ML Syringe IV ×3 (05:12→17:21)
[2024-12-17] MEDS: 0.9% Saline Lock 10 ML Syringe IV ×2 (05:12→06:07)
[2024-12-17 06:24] LABS: Hematocrit 32.0 % (37-47); Hemoglobin 10.6 g/dL (12.0-15.0); Mean Corp Hgb Conc 33.1 g/dL (32-36); Mean Corpuscular Volume 90.9 fL (81-99); Mean Platelet Vol. 9.9 fl (6.2-12.0); Platelet Count 337 K/mm3 (150-450); RBC Distribution Width CV 12.4 % (11.6-14.6); RBC Distribution Width SD 40.3 fl (35.1-43.9); Red Blood Count 3.52 M/mm3 (4.2-5.4); White Blood Count 19.0 K/mm3 (4.4-11.0)
[2024-12-17] MEDS: Magnesium Sulfate 20 GM/500 ML BAG IV ×2 (07:01→17:22)
[2024-12-17 07:09] LABS: AST(SGOT) 27 U/L (<=31); Alanine Aminotransfer ALT/SGPT 12 U/L (<=34); Albumin, Serum 3.3 g/dL (3.5-5.0); Alkaline Phosphatase 203 U/L (35-104); Anion Gap 14 (5-15); BUN 9 mg/dL (4-19); BUN/Creat Ratio 13.8 RATIO (10-20); Calcium,Total 8.0 mg/dL (7.6-11.0); Carbon Dioxide 19.0 mmol/L (21.0-32.0); Chloride 100 mmol/L (98-108); Estimated Creatinine Clearance 148.18 ml/min (50-250); Globulin 2.7 g/dL (2.2-4.2); Glucose 146 mg/dL (70-99); Potassium 4.7 mmol/L (3.3-5.1)
--- NOTE | 2024-12-17 08:27 | PCM.PN.OB ---
Subjective Subjective Patient is laying in bed comfortably without complaints. She states that she slept on an off during the night. Lochia is mild and pain is minimal. Objective Data Objective Data Vital Signs: Vital Signs Temp Pulse Resp BP Pulse Ox O2 Del Method 97.1 F L 72 16 126/83 H 98 Room Air 12/17/24 08:00 12/17/24 08:00 12/17/24 08:00 12/17/24 08:00 12/17/24 08:00 12/17/24 08:00 Oxygen Delivery Method Room Air Weight: 184 lb Body Mass Index (BMI) 27.9 Intake & Output: Intake and Output for Last 24 Hours 12/15/24 12/16/24 12/17/24 23:59 23:59 23:59 Intake Total 2100.0 / 2100.0 821.67 / 821.67 Output Total 700 / 700 1800 / 1800 Balance 1400.0 / 1400.0 -978.33 / -978.33 Lab / Micro Data 12/17/24 06:15 12/17/24 06:15 Labs: Laboratory Results - last 24 hr 12/16/24 16:50: Urine Color Yellow, Urine Clarity Clear, Urine pH 7.0, Ur Specific [place] 1.005, Urine Protein 15 H, Urine Glucose (UA) Normal, Urine Ketones Negative, Urine Occult Blood Negative, Urine Nitrite Negative, Urine Bilirubin Negative, Urine Urobilinogen Normal, Ur Leukocyte Esterase 25 H 12/16/24 17:50: WBC 9.8, RBC 3.65 L, Hgb 11.1 L, Hct 32.2 L, MCV 88.2, MCH 30.4, MCHC 34.5, RDW Std Deviation 39.8, RDW Coeff of Precious 12.5, Plt Count 328, MPV 10.0, Creatinine 0.56 L, Estim Creat Clear Calc 179.93, Est GFR (MDRD) Non-Af 133, Uric Acid 5.0, AST 26, ALT 12, U Random Total Protein 14.1 H, Urine Creatinine 28.90, Protein/Creatinin Ratio 488 H, Syphilis Total Ab Nonreactive, Hep Bs Antigen Nonreactive, HIV 1&2 Antibody Nonreactive 12/16/24 20:30: Blood Type O POSITIVE, Antibody Screen NEGATIVE 12/17/24 06:15: WBC 19.0 H, RBC 3.52 L, Hgb 10.6 L, Hct 32.0 L, MCV 90.9, MCH 30.1, MCHC 33.1, RDW Std Deviation 40.3, RDW Coeff of Precious 12.4, Plt Count 337, MPV 9.9, Sodium 133, Potassium 4.7, Chloride 100, Carbon Dioxide 19.0 L, Anion Gap 14, BUN 9, Creatinine 0.68 L, Estim Creat Clear Calc 148.18, Est GFR (MDRD) Non-Af 127, BUN/Creatinine Ratio 13.8, Glucose 146 H, Calcium 8.0, Total Bilirubin < 0.15, AST 27, ALT 12, Alkaline Phosphatase 203 H, Total Protein 6.0, Albumin 3.3 L, Globulin 2.7, Albumin/Globulin Ratio 1.2 Micro: Microbiology 12/16/24 21:00 Urine, Clean Catch Chlamydia/Neisseria (PCR) - Final ROS Constitutional Constitutional: Reports systems reviewed and no addt'l complaints, except as documented Cardiovascular Cardiovascular: Denies chest pain, dizziness, dyspnea or irregular heart rhythm Respiratory/Chest Respiratory/Chest: Denies cough, pain on inspiration or shortness of breath at rest Gastrointestinal Gastrointestinal: Denies abdominal pain, nausea or vomiting Genitourinary Genitourinary: Denies burning urination Musculoskeletal Musculoskeletal: Denies muscle cramps, muscle spasms or muscle weakness Neurologic Neurologic: Denies confusion, dizziness, headache(s) or lack of coordination Psychiatric Psychiatric: Denies anxiety, behavioral changes or depression Physical Exam HEENT normocephalic Resp normal respiratory effort and normal air movement GI soft to palpation, non-tender and non-distended Rectal Exam: other Other Details: Incision is clean, dry, and intact no CVA tenderness Extremity normal to inspection General Extremity: edema bilateral (trace ) Assessment & Plan (1) delivery delivered: COMMENT: [facility] 34 severe preeclampsia Boy Young breech (2) Breech presentation: COMMENT: declined version plan primary csecton (3) Preeclampsia, severe: COMMENT: neuro features present, borderline severe pressures proceed with primary , s/p bmz x 1, start magnesium and give for 24 hours PLAN: Plan s/p LTCS PPD # 1 1. routine post care 2. breast feeding- support given 3. rh positive 4. rubella immune 5. pre-e: continue mag until 24 hrs from delivery. pressures are stable. edema is still present but mild
[2024-12-17] MEDS: Senna/Docusate Sodium 1 Tablet PO (09:07)
--- NOTE | 2024-12-17 16:24 | CASEMGMT ---
Social Work Progress Note Date of Intervention: 12/17/24 Time of Intervention: 1500 Referral Site: [facility] Reason for follow-up:Support: SCN admission Summary of Family/Staff/Agency Contact: HISTORY: Baby is 1 day old male who was admitted to [facility] ([facility]) due to prematurity and respiratory distress. Sw presented to bedside and introduced self to mother of baby (MOB- Yenifer) and father of baby (FOB- Sahil). Sw provided support due to baby requiring admission to SCN. Sw completed psychosocial assessment and provided literature and information on local community resources including [facility]. MOB receptive to referral being made at time of discharge. MOB assessed how parents are doing given that MOB required unplanned delivery and baby is admitted to SCN. ASSESSMENT: MOB and FOB were pleasant and engaging with sw throughout conversation. Parents report to be coping well given baby's admission to SCN. Parents state that they have been able to see baby and are happy that he is where he needs to be given his medical needs. MOB states that she is hopeful he will not require a lengthily admission. Parents were talkative and pleasant, and appreciative of sw support and information provided. PLAN: Sw to chart psychosocial assessment at later date. And to make referral to [facility] when baby is medically ready for discharge. .
[2024-12-18 03:24] VITALS: BP 119/80; PULSE 74; RESP 16; TEMP 36.7; O2SAT 99
[2024-12-18 07:27] VITALS: BP 122/80; PULSE 58; RESP 16; TEMP 36.5; O2SAT 99
--- NOTE | 2024-12-18 09:05 | PCM.PN.OB ---
Subjective Subjective Patient doing well without complaints. Tolerating PO. Ambulating and voiding without difficulty. feeding well. Denies chest pain, shortness of breath, calf pain/swelling, fevers, chills, lightheadedness. Objective Data Objective Data Vital Signs: Vital Signs Temp Pulse Resp BP Pulse Ox O2 Del Method 97.7 F L 58 L 16 122/80 H 99 Room Air 12/18/24 07:27 12/18/24 07:27 12/18/24 07:27 12/18/24 07:27 12/18/24 07:27 12/18/24 07:27 Oxygen Delivery Method Room Air Weight: 184 lb Body Mass Index (BMI) 27.9 Intake & Output: Intake and Output for Last 24 Hours 12/16/24 12/17/24 12/18/24 23:59 23:59 23:59 Intake Total 2100.0 / 2100.0 2403.34 / 2403.34 Output Total 700 / 700 3200 / 3200 Balance 1400.0 / 1400.0 -796.66 / -796.66 Lab / Micro Data 12/17/24 06:15 12/17/24 06:15 Micro: Microbiology 12/16/24 21:00 Urine, Clean Catch Chlamydia/Neisseria (PCR) - Final ROS Constitutional Constitutional: Reports systems reviewed and no addt'l complaints, except as documented Cardiovascular Cardiovascular: Reports systems reviewed and no addt'l complaints, except as documented Respiratory/Chest Respiratory/Chest: Reports systems reviewed and no addt'l complaints, except as documented Gastrointestinal Gastrointestinal: Reports systems reviewed and no addt'l complaints, except as documented Physical Exam Const alert, oriented x3 and no apparent distress HEENT Head and Scalp: atraumatic Resp normal respiratory effort GI soft to palpation and non-tender Inspection: incision intact, healing well and drainage (none) Bimanual Exam - Vag & Uterus: uterus non-tender Uterus Palpation: uterus fundus firm (below Umbilicus) Assessment & Plan (1) delivery delivered: COMMENT: LTCS 34 severe preeclampsia Boy Young breech PLAN: Plan s/p LTCS PPD # 2 1. routine post care 2. breast feeding- support given 3. rh positive 4. rubella immune pree with severe features dc home
--- NOTE | 2024-12-18 09:06 | PCM.DC.SUM ---
Providers Date of Admission: 12/16/24 Reason For Visit: C SECTION Diagnosis Discharge Diagnosis (1) delivery delivered: Status: Acute Code(s): O82 - Encounter for delivery without indication Plan s/p LTCS PPD # 2 1. routine post care 2. breast feeding- support given 3. rh positive 4. rubella immune pree with severe features dc home Medications at Discharge Home Medications PNV 153-FA 400 mcg-om3 35 mg-dha 25 mg-epa 5 mg-fish oil chew tablet tab PO 11/12/24 famotidine 40 mg tablet (Pepcid) 40 mg PO BID 11/12/24 naproxen 500 mg tablet 500 mg PO BID PRN PRN Pain #30 tabs 12/16/24 oxycodone-acetaminophen 5 mg-325 mg tablet (Percocet) 1 tab PO Q4H PRN pain 7 days #20 tabs 12/16/24 Hospital Course Summary of Care Provided Hospital Course: admitted iwth severe preeclampsia and breech deliver 34 weeks routine recovery mag turned off after 24 hours pressures remained stable no meds dc home ppd 2 Weight / BMI Weight Weight: 184 lb Body Mass Index (BMI) 27.9 ABG / Lab / Microbiology Data 12/17/24 06:15 12/17/24 06:15 Microbiology: Microbiology 12/16/24 21:00 Urine, Clean Catch Chlamydia/Neisseria (PCR) - Final D/C Instructions May shower in (days): 0 May resume sexual activity in: 4-6 weeks Weight Bearing Status: Full weight bearing Call your doctor if your incision/area has: Continuous Slow Oozing, Sudden Increased Bleeding, Increased Pain/ Swelling, Increased Redness and Foul Smelling Discharge Call your doctor if you observe: Fever of 101 or Higher and Using more than 1 pad per hour (for 2 hours) Suture Line Care: Avoid Pulling/Pushing and Avoid Pinching/Bending Cleanse incision/area with: Soap & Water and Keep Dressing Clean & Dry DC O2, CPAP, BIPAP Needs Home O2 Discharge instructions: No Please Follow Up With: Dora Doe MD When: Call [phone] to make an appointment for an incision check in 1-2 weeks. Meaningful Use Info Meaningful Use Meaningful Use Diagnoses (Choose all that apply): None applicable Discharge Plan Admission Admit Date/Time: 12/16/24 20:00 Attending Provider: Dora Doe Discharge Orders/Prescriptions Prescriptions: New oxycodone-acetaminophen [Percocet] 5-325 mg tablet 1 tab PO Q4H PRN (Reason: pain) 7 Days Qty: 20 0RF naproxen 500 mg tablet 500 mg PO BID PRN PRN (Reason: Pain) Qty: 30 1RF No Action PNV no.[id number] 400 mcg-35 mg- 25 mg-5 mg tablet,chewable PO famotidine [Pepcid] 40 mg tablet 40 mg PO BID Disposition Disposition (needs filled in before D/C Order can be placed): Home, Self Care
[2024-12-18] MEDS: Senna/Docusate Sodium 1 Tablet PO (09:44)
[2024-12-18 09:55] VITALS: RESP 14
--- NOTE | 2024-12-21 09:51 | CASEMGMT ---
Social Work Assessment Labor and Delivery Unit Patient Address: [address] [place] [address]. [place] [id number] Phone number: [phone] Date of Referral: 12/17/24 Time of Referral:? [phone] Referred By: Dr. Doe Date of Intervention: ??12/17/24 Time of Intervention:? 1419 Reason for Referral:?anxiety, depression, self harm (cutting), bipolar Sw completed chart review and acknowledges social work consult. Sw presented to bedside and introduced self to mother of baby (MOB- Yenifer) and father of baby (FOB- Sahil). Sw explained reason for sw involvement and completed psychosocial assessment. History obtained from: medical records, MOB and FOB Household composition: Currently residing in the family home is MOB, FOB and baby when ready for discharge. Parents deny any problems or concerns with their home, stating that it is safe and secure. Patient's parent/guardian status:?Parents report that they have been together for 2 years after meeting each other at school. Parents dated for a year and have been for a year. No concerns reported regarding domestic violence or intimate partner violence. ? Medical History: ?CORNELIUS is 19 year old female who is 1, para 0- now 1 following labor and delivery of . CORNELIUS received routine care during with [place]. CORNELIUS presented to hospital for scheduled appointment at [facility] and was instructed to come to Labor and Delivery for unscheduled due to pre-eclampsia and baby was in breech presentation. Baby boy, named Hector, was born weighing 5lb 7oz and had apgars of 8 and 9 at one and five minutes of life, respectfully. CORNELIUS is providing breast milk for baby, and plans on baby being followed by Dr. Senior for pediatrics. Hector required transfer of care to [facility] due to prematurity and respiratory distress. There is no discharge identified at this time. - CORNELIUS states that she has gone over to see Hector a couple of times since delivery, but she is still admitted, so she is also working on recovery and taking care of herself as well. Educational Status:? Both parents graduated from high school, CORNELIUS is currently in school right now to obtain her Bachelor's of Science. 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 Supplies:?? All necessary baby supplies obtained, including: car seat, safe sleep space, clothes, diapers and wipes. Childcare/Caregiver(s):? CORNELIUS reports that she will be the primary caregiver to baby, along with FOB and family members when they need assistance with childcare. Transportation:?? Both parents have their drivers license and reliable means of transportation, no barriers. Programs/Agencies Involved: ?CORNELIUS is connected to [place]. CORNELIUS is also connected to mental health supports through her college. ?? Children Services/Legal Issues:??? No prior involvement with children services, no issues or concerns warranting referral to be made at this time. Behavioral Health Issues: ??Mental Health History:?FOB denies mental health history. MOB state that she has been diagnosed with anxiety, depression and BiPolar. CORNELIUS also has history of cutting/ self injury behavior. CORNELIUS states that she has been connected to mental health supports for several years, and has found it to be very beneficial. CORNELIUS denies ever being suicidal, but states that cutting was a way to cope and counseling has taught her more healthy and more appropriate ways to cope. ?CORNELIUS is not prescribed any medications to help her manage her mental health symptoms. ? Substance Use History: Parents deny substance use prior to and during . ?? Family History:?No family history of substance use or significant mental health history. ? Drug Screens: ??No drug screens observed while completing chart review. Family/Social Stressors:? CORNELIUS denies any issues, concerns or stressors at this time. CORNELIUS states that her sister is her biggest support person. CORNELIUS states that although Hector is currently admitted to [facility], she knows that is where he needs to be, and she is okay with him being there and getting the medical help that he requires. Support Systems: CORNELIUS states that her sister her grandparents and paternal grandparents are her biggest supports at this time. Depression/Shaken Baby/Safe Sleeping:? Estefania educated parents on signs and symptoms of baby blues and mood and anxiety disorders to be mindful of going into this period. CORNELIUS states that she felt good throughout her . CORNELIUS states that towards the end of her she started to feel physically drained and tired, but mentally she felt like herself. CORNELIUS reports that now that baby is here she feels good, denies feeling down, anxious, tearful or sad. Sw explained to MOB that due to her mental health history she is more at risk for experiencing these mental health symptoms as well as psychosis. MOB states that she has talked to her sister about her mental health experience, and her sister told her that she experienced rage. Sw and MOB talked about what that would look like, and MOB expressed understanding. MOB states that if she were to start to feel any of these symptoms she feels comfortable talking to FOB or her sister about it. MOB reports that she has future appointments scheduled with her counselor, and she feels comfortable talking to her about her feelings as well. Sw educated parents on shaken baby prevention and ABCs of safe sleep, they expressed understanding. ASSESSMENT:? MOB and baby admitted following labor and delivery of . Baby requires admission to [facility] due to prematurity and respiratory distress. MOB with mental health history positive for anxiety, depression, bipolar and self injury/ cutting. MOB denies self injurious behavior during , or even prior to. MOB states that those behaviors were throughout adolescence, and prior to meeting FOB. MOB is not prescribed medications to help her manage her mental health symptoms at this time as she feels as though they are managed by attending counseling appointments and utilizing healthy and safe coping mechanisms. FOB states that he is able to recognize when MOB may be struggling, and knows how to help her. MOB and FOB both present for completion of assessment. MOB talkative and engaging, although she was on magnesium and appeared to be tired and worn out- understandably so. FOB quiet and only answered questions and participated when directly spoken to. MOB appeared to have plan in place regarding her mental health going into this period. Baby admitted to [facility] and no discharge identified at this time. Parents express understanding to reach out to social work if they have any questions or need support regarding ongoing admission for . PLAN:? No other services requested or indicated. MOB and baby to be discharged when medically ready. Parents were provided literature regarding: signs and symptoms of baby blues and mood and anxiety disorders, [facility], shaken baby prevention, ABCs of safe sleep and a list of county resources that are available for them should any needs present themselves. Sw to make referral to [facility] when baby discharged from [facility]. Mindy Westfall, SENIOR SHIPPING CLERK, DRAIN TILE MACHINE OPERATOR
== END 2024-12-18 10:00 | disposition home or self-care (01) | DRG 540 ==
LOC: WPOUT 20:08 → WP 20:08
PROVIDERS: Admitting Provider Obstetrics & Gynecology; Referring Provider Obstetrics & Gynecology; Visit Provider Obstetrics & Gynecology
DX: O14.14 Severe pre-eclampsia complicating childbirth (principal); G90.A Postural orthostatic tachycardia syndrome [POTS]; F31.81 Bipolar II disorder; O99.354 Diseases of the nervous system complicating childbirth; F41.9 Anxiety disorder, unspecified; K31.84 Gastroparesis; K21.9 Gastro-esophageal reflux disease without esophagitis; M79.7 Fibromyalgia; O99.344 Other mental disorders complicating childbirth; O99.02 Anemia complicating childbirth; O98.82 Other maternal infectious and parasitic diseases complicating childbirth; B95.1 Streptococcus, group B, as the cause of diseases classified elsewhere; Z37.0 Single live birth; O99.62 Diseases of the digestive system complicating childbirth; Q79.62 Hypermobile Ehlers-Danlos syndrome; O99.892 Other specified diseases and conditions complicating childbirth; O32.1XX0 Maternal care for breech presentation, not applicable or unspecified; O43.193 Other malformation of placenta, third trimester; Z3A.34 34 weeks gestation of pregnancy; Z87.440 Personal history of urinary (tract) infections
CPT/HCPCS: 59025; 59050; 80053; 81002; 82565; 82570; 84156; 84450; 84460; 84550; 85027; 86703; 86780; 86850; 86900; 86901; 87340; 87491; 87591; 99221; A4216; G0378; J0702; J2405

== ENCOUNTER → 2024-12-29 | Outpatient (CLI) | payer MEDICAID, SELFPAY ==
[2024-12-29 16:09] LABS: Hematocrit 35.4 % (37-47); Hemoglobin 11.8 g/dL (12.0-15.0); Immature Granulocytes Count 0.020 X10^3/uL (0.0-0.0); Mean Corp Hgb Conc 33.3 g/dL (32-36); Mean Corpuscular Volume 90.1 fL (81-99); Mean Platelet Vol. 9.3 fl (6.2-12.0); NRBC Flagged by Analyzer 0 % (0-5); Platelet Count 472 K/mm3 (150-450); RBC Distribution Width CV 13.3 % (11.6-14.6); RBC Distribution Width SD 43.6 fl (35.1-43.9); Red Blood Count 3.93 M/mm3 (4.2-5.4); White Blood Count 5.8 K/mm3 (4.4-11.0)
[2024-12-29 16:46] LABS: AST(SGOT) 24 U/L (<=31); Alanine Aminotransfer ALT/SGPT 19 U/L (<=34); Albumin, Serum 3.9 g/dL (3.5-5.0); Alkaline Phosphatase 206 U/L (35-104); Anion Gap 10 (5-15); BUN 16 mg/dL (4-19); BUN/Creat Ratio 20.8 RATIO (10-20); Calcium,Total 8.8 mg/dL (7.6-11.0); Carbon Dioxide 21.9 mmol/L (21.0-32.0); Chloride 109 mmol/L (98-108); Globulin 2.7 g/dL (2.2-4.2); Glucose 115 mg/dL (70-99); Potassium 3.5 mmol/L (3.3-5.1)
== END | disposition home or self-care (01) ==
LOC: BWCLAB 13:51
PROVIDERS: Visit Provider Nurse Practitioner Women's Health
DX: O14.10 Severe pre-eclampsia, unspecified trimester (principal); Z3A.00 Weeks of gestation of pregnancy not specified
CPT/HCPCS: 36415; 80053; 85025